=== PATIENT | male | born 1965 | race Hispanic/Latino ===

== ENCOUNTER → 2021-07-17 | Outpatient (CLI) | payer OTHER | END | disposition home or self-care (01) | LOC: OIH 14:34 | PROVIDERS: ATTEND Internal Medicine Cardiovascular Disease | DX: Z13.6 Encounter for screening for cardiovascular disorders (principal); R93.1 Abnormal findings on diagnostic imaging of heart and coronary circulation | CPT/HCPCS: 75571 ==

== ENCOUNTER 2024-05-22 07:08 | Inpatient (IN) | payer MEDICARE, OTHER ==
[~2024-05-22] VITALS: Ht 175.3 cm; Wt 95.0 kg
[~2024-05-22 07:08] MED LIST: ATOR20TA65 PO; HUM100IN SQ; NIFE-78 PO; PRED5TAB PO
[2024-05-22 08:03] LABS: BASOPHILS # (AUTO) 0.05 K/uL (0.00-0.20); BASOPHILS % (AUTO) 0.4 % (0.0-5.0); EOSINOPHILS # (AUTO) 0.03 K/uL (0.00-0.70); EOSINOPHILS % (AUTO) 0.2 % (0.0-8.0); LYMPHOCYTES # (AUTO) 1.8 K/uL (1.0-4.8); LYMPHOCYTES % (AUTO) 13.4 % (21.0-51.0); MEAN CORPUSCULAR HEMOGLOBIN 30.9 pg (27.0-33.0); MEAN CORPUSCULAR HGB CONC 31.5 g/dL (32.0-36.0); MEAN CORPUSCULAR VOLUME 98.1 fL (79-99); MONOCYTES # (AUTO) 0.5 K/uL (0.1-1.0); MONOCYTES % (AUTO) 3.6 % (3.0-13.0); NEUTROPHILS # (AUTO) 11.1 K/uL (1.8-7.7); NEUTROPHILS % (AUTO) 80.9 % (40.0-77.0); PLATELET COUNT (AUTO) 250 K/uL (130-400); RED BLOOD CELL COUNT(AUTO) 2.65 MIL/uL (4.50-6.20); RED CELL DISTRIBUTION WIDTH 15.9 % (11.0-15.5); WHITE BLOOD COUNT (AUTO) 13.7 K/uL (4.8-10.8)
--- NOTE | 2024-05-22 08:09 | NUR ---
PATIENT REPORTS PORTACATH DEVICE FELL OUT WHILE OUT GETTING UP FROM HIS RECLINER. PATIENTS PLACED DRESSING ON WOUND. WOUND PRESENTS WITH DRY BLOOD AT EXIT SITE. EDGES APPEAR CLEAN, SITE WITHOUT REDNESS OR SWELLING NOTED.
--- NOTE | 2024-05-22 08:16 | EKG ---
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
[2024-05-22 08:22] LABS: CREATININE 7.8 mg/dL (0.5-1.3); POTASSIUM 5.5 mmol/L (3.5-5.1)
[2024-05-22 08:30] LABS: INR 0.96 (0.85-1.15); PROTHROMBIN TIME 10.8 SEC (9.6-11.6)
--- NOTE | 2024-05-22 08:31 | NUR ---
WOUND CARE PROVIDED USING STERILE TECHNIQUE. STERILE DRESSING APPLIED
[2024-05-22 08:32] LABS: PARTIAL THROMBOPLASTIN TIME 26.8 SEC (26.3-35.5)
--- NOTE | 2024-05-22 08:49 | ERN ---
ED Note History of Present Illness Stated Complaint: PORT A CATH DISLODGED Chief Complaint: Other Problems Time Seen by MD: 07:22 Dictation: The patient is a 59-year-old male with a medical history that includes hypertension, type 2 diabetes mellitus, and psoriatic arthritis for which he is on long-term immunosuppressive therapy presented to the emergency department due to the dislodgement of his Perm catheter. The patient has been undergoing hemodialysis for the past two years, with the most recent catheter change occurring at [facility] six months ago. Last Wednesday, while performing home dialysis, the catheter became dislodged approximately 20 minutes into the procedure. He did not observe any blood or serous discharge from the catheter site. In a state of panic, he contacted [facility] to inquire whether he should come in for catheter reinsertion that same day. The nurse advised him to visit the hosp ital on Wednesday. He reports no chest pain, shortness of breath, nausea, vomiting, or any other symptoms. 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 Multiple providers have informed him that he will be requiring Right side BKA in the near future. He is currently under the care of Dr. Mata (Infectious Disease) and Dr. Boswell (Advanced Registered Nurse) as an outpatient. Allergies: Coded Allergies: Penicillins (Unverified Allergy, Unknown, 01/14/24) Sulfa (Sulfonamide Antibiotics) (Unverified Allergy, Unknown, 01/14/24) Home Meds Reported Medications Hum Insulin NPH/Reg Insulin Hm (Humulin 70/30 Kwikpen) 100 Unit/Ml (70-30) Insuln.pen, 30 UNITS SQ DAILY 01/14/24 Nifedipine (Nifedipine ER) 30 Mg Tablet.er, 60 MG PO BID 01/14/24 Prednisone (Prednisone) 5 Mg Tablet, 5 MG PO BID, TAB 01/14/24 Atorvastatin Calcium (Atorvastatin Calcium) 20 Mg Tablet, 20 TAB PO DAILY 01/14/24 Past Medical History Past Medical History: Arthritis, Diabetes-Type II, High Cholesterol, Hypertension, Renal Failure Surgical History: Cholecystectomy Surgical History Other: RT FOOT AMPUTATION, NECK PSYCH History: no pertinent psych hx Family History: Negative Review of System Dictation CONSTITUTIONAL: Denies fevers, chills, or night sweats. No unintentional weight loss reported. NEUROLOGICAL: Denies headache, amaurosis fugax, motor weakness, sensory deficit, vertigo/spinning sensation, gait abnormalities, or tremors. ENT: No hearing loss, otalgia, otorrhea, rhinitis, rhinorrhea, hoarseness, or sore throat. CARDIOVASCULAR: Denies any exertional angina, dyspnea on exertion, orthopnea, paroxysmal nocturnal dyspnea, palpitations, life-threatening arrhythmias, claudication. PULMONARY: Denies any shortness of breath, cough, phlegm/sputum, hemoptysis, pleuritic chest pain. SLEEP: Denies morning headaches, daytime somnolence or napping. Denies difficulty falling asleep, staying asleep, waking from sleep. Denies knowledge of snoring. GASTROINTESTINAL: Denies any type of dysphagia to either liquids or solids. Denies nausea, vomiting, pyrosis, early satiety, abdominal pain, diarrhea, constipation, or changes in stool consistency or caliber. Denies coffee-ground emesis, hematemesis, hematochezia, or melanotic stools. GENITOURINARY: Denies frequency, urgency, nocturia, hematuria or incontinence (Storage/Irritative symptoms.) Low urinary stream, straining to void, urinary intermittency or hesitancy, splitting of the voiding stream, terminal dribbling. ENDOCRINOLOGIC: Denies polyuria, polydipsia, polyphagia or heat/cold intolerances. HEMATOLOGIC: Denies thrombophilia/previous clots, or coagulopathy/bleeding disorders. ONCOLOGIC: Denies personal history of malignancy. DERMATOLOGIC: Denies rashes or pruritus. PSYCHIATRIC: Denies any suicidal or homicidal ideation. Denies hallucinations. Initial Vital Sign VS Vital Signs Date Time Temp Pulse Resp B/P (MAP) Pulse Ox O2 Delivery O2 Flow Rate FiO2 05/22/24 07:12 97.9 94 16 160/68 95 Room Air 0 05/22/24 07:20 21 Physical Exam Dictation PHYSICAL EXAM GENERAL APPEARANCE: The patient is awake, alert, and oriented, in no acute cardiopulmonary distress. NEUROLOGICAL: Cranial nerves II-XII grossly intact. Motor is 5/5 in bilateral upper and lower extremities proximal to distal. No sensory deficits. HEENT: Face is symmetric. Pupils are equal and reactive. Extraocular movements are intact. NECK: Supple. No JVD. No thyromegaly. No submental, submandibular, pre- /postauricular, occipital or supraclavicular lymphadenopathy. CHEST: Normal chest expansion. No Telemetry. LUNGS: Absence of any rales, rhonchi or any wheezing. CARDIOVASCULAR: Regular. S1 and S2 normal. No appreciable rubs, murmurs or gallops. ABDOMEN: Soft, nontender, and nondistended. There is no rebound, voluntary guarding, or rigidity. : Deferred. No Hutson. EXTREMITIES: Non-edematous and not cyanotic. No clubbing. Good capillary refill. SKIN: Hyperpigmented striae present over the abdomen, bandage present over right foot nonhealing ulcer area, small decubitus ulcer present over the right buttock IVF Sepsis Management BMI >30kg/m2?: No Results (Laboratory/Radiology) Laboratory/Radiology Laboratory Tests Test 05/22/24 07:50 05/22/24 11:47 05/22/24 11:49 White Blood Count 13.7 K/uL (4.8-10.8) H Red Blood Count 2.65 MIL/uL (4.50-6.20) L Hemoglobin 8.2 g/dL (14.0-18.0) L Hematocrit 26.0 % (42-54) L Mean Corpuscular Volume 98.1 fL (79-99) Mean Corpuscular Hemoglobin 30.9 pg (27.0-33.0) Mean Corpuscular Hemoglobin Concent 31.5 g/dL (32.0-36.0) L Red Cell Distribution Width 15.9 % (11.0-15.5) H Platelet Count 250 K/uL (130-400) Mean Platelet Volume 11.2 fL (7.5-10.5) H Immature Granulocyte % (Auto) 1.5 % (0-1) H Neutrophils (%) (Auto) 80.9 % (40.0-77.0) H Lymphocytes (%) (Auto) 13.4 % (21.0-51.0) L Monocytes (%) (Auto) 3.6 % (3.0-13.0) Eosinophils (%) (Auto) 0.2 % (0.0-8.0) Basophils (%) (Auto) 0.4 % (0.0-5.0) Neutrophils # (Auto) 11.1 K/uL (1.8-7.7) H Lymphocytes # (Auto) 1.8 K/uL (1.0-4.8) Monocytes # (Auto) 0.5 K/uL (0.1-1.0) Eosinophils # (Auto) 0.03 K/uL (0.00-0.70) Basophils # (Auto) 0.05 K/uL (0.00-0.20) Absolute Immature Granulocyte (auto 0.20 K/uL (0-1) Nucleated Red Blood Cells 0.0 % (0.0-0.19) Erythrocyte Sedimentation Rate 30 MM/HR (0-20) H Prothrombin Time 10.8 SEC (9.6-11.6) Prothromb Time International Ratio 0.96 (0.85-1.15) Activated Partial Thromboplast Time 26.8 SEC (26.3-35.5) Sodium Level 138 mmol/L (136-145) Potassium Level 5.5 mmol/L (3.5-5.1) H Chloride Level 101 mmol/L (101-111) Carbon Dioxide Level 26 mmol/L (21-32) Blood Urea Nitrogen 74 mg/dL (7-18) H Creatinine 7.8 mg/dL (0.5-1.3) H Glomerular Filtration Rate Calc 7 mL/min (>90) Random Glucose 201 mg/dL (70-105) H Hemoglobin A1c 8.6 % (4.0-6.0) H Estimated Average Glucose (eAG) 200 mg/dL (70-126) H Total Calcium 7.5 mg/dL (8.5-10.1) L Total Bilirubin 0.4 mg/dL (0.2-1.0) Direct Bilirubin 0.1 mg/dL (0.0-0.3) Aspartate Amino Transf (AST/SGOT) 11 U/L (10-37) Alanine Aminotransferase (ALT/SGPT) 12 U/L (12-78) Alkaline Phosphatase 101 U/L (50-136) C-Reactive Protein, Quantitative 46.40 mg/L (0.5-3.0) H Total Protein 6.8 g/dL (6.0-8.3) Albumin 2.9 g/dL (3.5-5.0) L Procalcitonin 0.41 ng/mL (0.05-0.5) Thyroid Stimulating Hormone (TSH) 0.65 uIU/mL (0.36-3.74) Whole Blood Glucose 112 MG/DL (70-110) H 201 MG/DL (70-110) #H Labs Reviewed?: Yes EKG Comment: Sinus rhythm, normal P axis, V-rate 50-99 Rate 90 QT 379 X-RAY Comment: [facility] [address] [place] [address] IMAGING REPORT Signed PATIENT: FREDRICK LION MR#: [id number] : 1965 SEX: M AGE: 59 LOCATION: [facility] ORDER 5 STATUS: REG ER REPORT#: [id number] SERVICE REASON: cardiac ORDERING PHYSICIAN: MARTHA CAPONE MD PROCEDURE: CXR1VW - CHEST 1VW Exam Type: CHEST 1VW Clinical Information: cardiac Comparison: None Findings: Removal of right permacath. No pneumothorax. The lungs are clear of infiltrates. The heart is enlarged. Bony and soft tissue structures of the chest wall are unremarkable. IMPRESSION: Cardiomegaly. Clear lungs. DICTATED BY: YOSSI SEGAL MD DATE: 05/22/24911 ELECTRONICALLY SIGNED BY: YOSSI SEGAL MD DATE: 05/22/2414 ED Course ED Course Orders Procedure Category Date Status Time Basic Metabolic Panel LAB 05/22/24 Complete 07:45 Cbc With Differential LAB 05/22/24 Complete 07:45 Pt And Ptt LAB 05/22/24 Complete 07:45 Chest 1vw RAD 05/22/24 Resulted 07:45 12 Lead Ekg Tracing- EKG 05/22/24 Complete Technical 07:45 Acetaminophen 325 Tab PHA 05/22/24 In Process (Tylenol 325mg Tab 10:30 Ondansetron 4mg Inj PHA 05/22/24 In Process (Zofran 4mg Inj) 10:30 Initiate [place] 05/22/24 In Process Hyperglycemia Protoco 10:03 Insulin Regular, PHA 05/22/24 In Process Human 3ml (Humulin R 11:30 Admit Orders ADM 05/22/24 Transmitted 10:24 Podiatry Consult CONPHYSVC 05/22/24 Transmitted 10:30 Nephrology Consult CONPHYSVC 05/22/24 Transmitted 10:30 Foot Comp 3+Vws Rt RAD 05/22/24 Resulted 10:31 Us Arterial Unila Low US 05/22/24 Resulted Ext Dupl 10:32 Telemetry Monitoring CPOE 05/22/24 Transmitted 10:32 Erythrocyte LAB 05/22/24 Complete Sedimentation Rate 10:32 Crp Quantitative LAB 05/22/24 Complete 10:32 Procalcitonin LAB 05/22/24 Complete 10:32 Thyroid Stimulating LAB 05/22/24 Complete Hormone 10:32 Hemoglobin A1c LAB 05/22/24 Complete 10:32 Blood Cult CHRIS 05/22/24 In Process 10:34 *Nursing CPOE 05/22/24 Transmitted Communication: 10:34 Mr Ankle Right Wo MRI 05/22/24 Logged 10:36 Nifedipine 30mg Er PHA 05/22/24 In Process (Adalat 30mg) 11:00 Vital Signs(Adult CPOE 05/22/24 Transmitted Hospitalist) 10:39 Daily Weights CPOE 05/22/24 Transmitted 10:39 I&O Q Shift CPOE 05/22/24 Transmitted 10:39 Condition: CPOE 05/22/24 Transmitted 10:39 Activity: Br W/Brp CPOE 05/22/24 Transmitted With Assist 10:39 Apply Scds CPOE 05/22/24 Transmitted 10:39 Fall Precautions CPOE 05/22/24 Transmitted 10:39 Aspiration Precautions CPOE 05/22/24 Transmitted 10:39 Npo Except For Meds CPOE 05/22/24 Transmitted 10:39 Hepatic Function Panel LAB 05/22/24 Complete 10:32 Pharmacy PHA 05/22/24 Complete Communication 11:00 Pantoprazole 40mg Tab PHA 05/23/24 In Process (Protonix 40mg Tab 09:00 Aspirin 81mg Chew Tab PHA 05/23/24 In Process (Aspirin 81mg Chew 09:00 Cefepime Hcl 1 Gm PHA 05/22/24 In Process Vial (Maxipime 1 Gm Vi 11:00 Vancomycin Protocol PHA 05/22/24 In Process (Vancomycin Protocol 11:00 Vancomycin 2gm/500 Ml PHA 05/22/24 Complete Bag (Vancomycin 2g 11:00 Prednisone 5mg Tab PHA 05/22/24 In Process (Deltasone/Orasone 5m 21:00 Na Zircon PHA 05/22/24 Complete Cyclosil-Lokelma 10g 11:30 Folic Acid/Vitamin B PHA 05/23/24 In Process Comp W-C (Nephrovit 09:00 Daily Fluid Intake CPOE 05/22/24 Transmitted Restriction 11:41 Cbc With Differential LAB 05/23/24 Verified 04:00 Comprehensive LAB 05/23/24 Verified Metabolic Panel 04:00 Magnesium LAB 05/23/24 Verified 04:00 Jitterbug Operator Procedure CATH 05/22/24 Logged Request 11:43 Hydralazine 20mg Inj PHA 05/22/24 In Process (Apresoline 20mg In 12:30 Clopidogrel 75mg Tab PHA 05/23/24 In Process (Plavix 75mg) 13:00 Jitterbug Operator Procedure CATH 05/22/24 Logged Request 17:00 Vital Signs Date Time Temp Pulse Resp B/P (MAP) Pulse Ox O2 Delivery O2 Flow Rate FiO2 05/22/24 13:00 86 16 153/72 98 Room Air* 0 21 05/22/24 11:00 87 14 142/62 98 Room Air* 0 21 05/22/24 10:00 87 13 153/87 98 Room Air* 0 21 05/22/24 09:00 88 14 154/77 96 Room Air* 0 21 05/22/24 08:20 87 14 153/61 96 Room Air* 0 21 05/22/24 07:20 98.1 95 12 152/70 96 Room Air* 0 21 05/22/24 07:12 97.9 94 16 160/68 95 Room Air 0 8:30 AM: The patient was assessed at the bedside in the presence of his . He is resting comfortably in bed and reports no chest pain, shortness of breath, or any other issues. He undergoes dialysis on Mondays, Wednesdays, and Saturdays, with today's session scheduled. He has brought his PermCath in a Ziploc bag. Vital signs indicate a blood pressure of 160/68, with all other readings within normal limits. Laboratory results reveal a white blood cell count of 13.7, hemoglobin level of 8.2, potassium level of 5.5, blood urea nitrogen of 74, and creatinine level of 7.8. Results from the chest x-ray are still pending. We will closely monitor the patient and call IR/Jitterbug Operator to schedule a procedure for Perm Cath insertion. 9:15 AM: We have called laborer [facility] for placement of a placement of Perm catheter. Per cath team, the patient requires inpatient admission for PermCath placement. We have called hospitalist conveyancer and requested the patient to get admitted. The patient will be NPO, the slurry man on the call Dr. Patrick was informed. The hospitalist accepted the admission. Medical Decision Making [facility] MDM Differential diagnosis: Perm cath dislodgement, ESRD on Hemodialysis, Hyperkalemia Hospitalist consult, accepts patient for admission Previous outside records reviewed: Old ER visits. Risk of complication and/or morbidity or mortality of patient management: None Medications-Per medication reconciliation Need for hospitalization: Patient does meet criteria for hospitalization. Need for emergency major/minor surgery: No There are no social concerns with this patient. Patient's prior external medical records from other ER visits were reviewed by me as indicated. Prior testing and results from previous visits were reviewed. Prior tests were taken into account with medical decision making and resource utilization, independent historian/historians were used to obtain complete medical history. I independently interpreted the test that were performed, results were reviewed by me and considered findings on radiology if ordered. DX & DISP Disposition: Inpatient Decision to Admit Date: May 22, 2024 Departure Impression: Primary Impression: Hemodialysis catheter dysfunction Additional Impressions: ESRD (end stage renal disease) on dialysis, Hyperkalemia Critical Time: 30 minutes Condition: Stable Referrals: STEPHANIE HAYES MD (PCP) I performed the substantive portion of the visit. I have reviewed and personally made and approve the management plan that is documented in the notes by myself or the resident physician. I acknowledge full responsibility for the patient's management plan. I have examined patient, & reviewed all documents, & agreed W/ the Diagnosis, and Plan MAL MAN MD May 22, 2024 08:49 MARTHA CAPONE MD May 22, 2024 15:59
--- NOTE | 2024-05-22 09:14 | HMCIMG ---
Exam Type: CHEST 1VW Clinical Information: cardiac Comparison: None Findings: Removal of right permacath. No pneumothorax. The lungs are clear of infiltrates. The heart is enlarged. Bony and soft tissue structures of the chest wall are unremarkable. IMPRESSION: Cardiomegaly. Clear lungs.
--- NOTE | 2024-05-22 10:08 | HP ---
[facility] HISTORY AND PHYSICAL Date of Service: May 22, 2024 Time of Service: 10:08 HISTORY OF PRESENT ILLNESS: 59-year-old male with underlying history of hypertension, hyperlipidemia, peripheral arterial disease, type 2 diabetes mellitus, ESRD on chronic home he modialysis of Wednesday, Wednesday, Wednesday, history of chronic diabetic foot ulcer of the right heel being followed by Podiatry as outpatient, psoriasis on chronic outpatient steroids and Remicade infusion who presented to the ER after his PermCath for hemodialysis was dislodged. Dislodgement happened on Wednesday and patient decided to come to the ER today for further evaluation. Patient states that similar episode has happened about six months ago and patient had PermCath placed by IR. Patient denies any fevers or chills. Reports that he is due for home hemodialysis today. He has a history of chronic diabetic foot/ heel ulcer being followed by Dr. Jackson as outpatient. He was seen by Dr. Jackson recently and has been taking oral outpatient antibiotics with doxycycline. He is supposed to see Dr. Mata with Infectious Disease on 05/26/2024 given persistent nonresolving infection. Patient was hospitalized in [facility] on 12/2023 after he was found to have cellulitis involving the TMA site of the right foot along with heel ulcer. Patient was found to have polymicrobial infection with Enterococcus faecalis, Pseudomonas aeruginosa and Bacteroides. He underwent debridement and wound VAC placement and was eventually discharged to [facility]. Patient was also seen by Cardiology and underwent peripheral angiogram with findings of severe right lower extremity PAD and patient underwent angioplasty of the right popliteal and distal SFA by Dr. Arzate. He was supposed to be on dual antiplatelet therapy with aspirin and Plavix but patient states that he has not taken either aspirin or Plavix after discharge from [facility]. On presentation to the hospital, patient was noted to be afebrile and hemodynamically stable. EKG showed normal sinus rhythm. chest x-ray showed no pulmonary edema. [place] [address], hemoglobin of 8.2, platelet count of 250,000. Patient initially stated that he did not want to be admitted and wanted IR to change catheter and be discharged home. But after further discussion, he is agreeable to be admitted for further evaluation by Dr. Jackson with regards to nonhealing ulcer/eschar of the right foot. we will rule out any active cellulitis and patient will be started on broad-spectrum antibiotics. Blood cultures will be obtained. Consultation with IR will be obtained as well for placement of PermCath. We will see how patient progresses. Patient has significant PAD, patient may need Cardiology evaluation as well as he has been off dual antiplatelet therapy for several months now. REVIEW OF SYSTEMS CONSTITUTIONAL: reports that permacath was dislodged today NEUROLOGICAL: Denies headache, amaurosis fugax, motor weakness, sensory deficit, vertigo/spinning sensation, gait abnormalities, or tremors. ENT: No hearing loss, otalgia, otorrhea, rhinitis, rhinorrhea, hoarseness, or sore throat. CARDIOVASCULAR: Denies any exertional angina, dyspnea on exertion, orthopnea, paroxysmal nocturnal dyspnea, palpitations, life-threatening arrhythmias, claudication. PULMONARY: Denies any shortness of breath, cough, phlegm/sputum, hemoptysis, pleuritic chest pain. SLEEP: Denies morning headaches, daytime somnolence or napping. Denies difficulty falling asleep, staying asleep, waking from sleep. Denies knowledge of snoring. GASTROINTESTINAL: Denies any type of dysphagia to either liquids or solids. Denies nausea, vomiting, pyrosis, early satiety, abdominal pain, diarrhea, constipation, or changes in stool consistency or caliber. Denies coffee-ground emesis, hematemesis, hematochezia, or melanotic stools. GENITOURINARY: Denies frequency, urgency, nocturia, hematuria or incontinence (Storage/Irritative symptoms.) Low urinary stream, straining to void, urinary intermittency or hesitancy, splitting of the voiding stream, terminal dribbling. ENDOCRINOLOGIC: Denies polyuria, polydipsia, polyphagia or heat/cold intolerances. HEMATOLOGIC: Denies thrombophilia/previous clots, or coagulopathy/bleeding disorders. ONCOLOGIC: Denies personal history of malignancy. DERMATOLOGIC: ulcer involving the right foot heel PSYCHIATRIC: Denies any suicidal or homicidal ideation. Denies hallucinations. PAST MEDICAL HISTORY: ESRD, hypertension, hyperlipidemia, peripheral arterial disease, type 2 diabetes mellitus, history of psoriasis on immunosuppressive therapy with prednisone and Remicade (last dose of Remicade on 04/21/2024), history of chronic steroid use as outpatient PAST SURGICAL HISTORY: History of right transmetatarsal amputation, hx of debridement of skin, subcutaneous tissues, right heel area 6 x 3 cm2 with total area of sharp excisional debridement of 18 cm on 01/16/[address] Jackson, history of peripheral angiogram with findings of severe right lower extremity PAD with angioplasty of right popliteal and distal SFA on 01/24/[address] Arzate, history of cholecystectomy, history of cervical spine surgery PAST SOCIAL HISTORY: Denies active smoking or alcohol consumption FAMILY HISTORY: Denies pertinent family history Allergies: Patient has allergic reaction to penicillin and sulfa Home medications: Patient will be bringing home medication list, reports being on nifedipine, prednisone 5 mg b.i.d., atorvastatin, denies being on aspirin or any other blood thinner Coded Allergies: Penicillins (Unverified Allergy, Unknown, 01/14/24) Sulfa (Sulfonamide Antibiotics) (Unverified Allergy, Unknown, 01/14/24) PHYSICAL EXAM GENERAL APPEARANCE: The patient is awake, alert, and oriented, in no acute cardiopulmonary distress. NEUROLOGICAL: Cranial nerves II-XII grossly intact. Motor is 5/5 in bilateral upper and lower extremities proximal to distal. No sensory deficits. HEENT: Face is symmetric. Pupils are equal and reactive. Extraocular movements are intact. NECK: Supple. No JVD. No thyromegaly. No submental, submandibular, pre-/postauricular, occipital or supraclavicular lymphadenopathy. CHEST: Normal chest expansion. No Telemetry. LUNGS: Absence of any rales, rhonchi or any wheezing. CARDIOVASCULAR: Regular. S1 and S2 normal. No appreciable rubs, murmurs or gallops. ABDOMEN: Soft, nontender, and nondistended. There is no rebound, voluntary guarding, or rigidity. : Deferred. No Hutson. EXTREMITIES: Patient has heel has a large area of eschar with possible necrotic region SKIN: No skin breakdown. Vital Sign (Last 24 Hours) 05/22/24 05/22/24 07:20 08:20 Temp 98.1 Pulse 87 Resp 14 B/P (MAP) 153/61 Pulse Ox 96 O2 Delivery Room Air* O2 Flow Rate 0 FiO2 21 LABS: Laboratory: Test 05/22/24 07:50 Range/Units White Blood Count 13.7 H 4.8-10.8 K/uL Red Blood Count 2.65 L 4.50-6.20 MIL/uL Hemoglobin 8.2 L 14.0-18.0 g/dL Hematocrit 26.0 L 42-54 % Mean Corpuscular Volume 98.1 79-99 fL Mean Corpuscular Hemoglobin 30.9 27.0-33.0 pg Mean Corpuscular Hemoglobin Concent 31.5 L 32.0-36.0 g/dL Red Cell Distribution Width 15.9 H 11.0-15.5 % Platelet Count 250 130-400 K/uL Mean Platelet Volume 11.2 H 7.5-10.5 fL Immature Granulocyte % (Auto) 1.5 H 0-1 % Neutrophils (%) (Auto) 80.9 H 40.0-77.0 % Lymphocytes (%) (Auto) 13.4 L 21.0-51.0 % Monocytes (%) (Auto) 3.6 3.0-13.0 % Eosinophils (%) (Auto) 0.2 0.0-8.0 % Basophils (%) (Auto) 0.4 0.0-5.0 % Neutrophils # (Auto) 11.1 H 1.8-7.7 K/uL Lymphocytes # (Auto) 1.8 1.0-4.8 K/uL Monocytes # (Auto) 0.5 0.1-1.0 K/uL Eosinophils # (Auto) 0.03 0.00-0.70 K/uL Basophils # (Auto) 0.05 0.00-0.20 K/uL Absolute Immature Granulocyte (auto 0.20 0-1 K/uL Nucleated Red Blood Cells 0.0 0.0-0.19 % Prothrombin Time 10.8 9.6-11.6 SEC Prothromb Time International Ratio 0.96 0.85-1.15 Activated Partial Thromboplast Time 26.8 26.3-35.5 SEC Sodium Level 138 136-145 mmol/L Potassium Level 5.5 H 3.5-5.1 mmol/L Chloride Level 101 101-111 mmol/L Carbon Dioxide Level 26 21-32 mmol/L Blood Urea Nitrogen 74 H 7-18 mg/dL Creatinine 7.8 H 0.5-1.3 mg/dL Glomerular Filtration Rate Calc 7 >90 mL/min Random Glucose 201 H 70-105 mg/dL Total Calcium 7.5 L 8.5-10.1 mg/dL DIAGNOSTICS / RADIOLOGY: SERVICE 0745 REASON: cardiac ORDERING PHYSICIAN: MARTHA CAPONE MD PROCEDURE: CXR1VW - CHEST 1VW Exam Type: CHEST 1VW Clinical Information: cardiac Comparison: None Findings: Removal of right permacath. No pneumothorax. The lungs are clear of infiltrates. The heart is enlarged. Bony and soft tissue structures of the chest wall are unremarkable. IMPRESSION: Cardiomegaly. Clear lungs. DICTATED BY: YOSSI SEGAL MD DATE: 05/22/24911 ELECTRONICALLY SIGNED BY: YOSSI SEGAL MD DATE: 05/22/24913 ASSESSMENT: Dislodged PermCath, POA History of ESRD on home hemodialysis therapy, POA Chronic leukocytosis, POA Underlying immunosuppression on outpatient treatment with steroids and Remicade, POA Nonhealing diabetic foot ulcer/heel ulcer with associated deep eschar/necrotic region, being followed by Dr. Jackson as outpatient, POA Anemia of renal disease, POA Underlying history of type 2 diabetes mellitus, POA History of chronic prednisone use as outpatient, POA Hypertension, POA Hyperlipidemia, POA History of peripheral arterial disease, POA Prior history of angioplasty to right popliteal artery and distal SFA by Dr. Arzate on 01/24/2024, POA History penicillin allergy, POA PLAN: Patient has agreed to be admitted after further discussion, we will admit this patient to medical-surgical floor IR consultation will be requested for PermCath placement, patient is on home hemodialysis on Wednesday, Wednesday, Wednesday, discussed with Dr. Mera with Nephrology, who has requested PermCath to be placed, patient has chronic leukocytosis from outpatient prednisone use as well Consultation with Nephrology will be requested Discussed patient's case with Dr. Jackson with Podiatry, patient was recently seen as outpatient in his pending to see Dr. Mata with Infectious Disease as outpatient, we will obtain blood cultures, CRP, ESR, procalcitonin, we will obtain foot x-ray as well, rule out any changes of osteomyelitis, patient has nonhealing right diabetic heel ulcer large area of eschar/necrotic changes, we will rule out any active infection as well We will keep patient on broad-spectrum antibiotics with vancomycin/cefepime renally dosed We will obtain lower extremity arterial ultrasound for further evaluation of vascular status, patient had peripheral angiogram done 01/2024 and unfortunately has not been on dual antiplatelet therapy after discharge from [facility], patient may need cardiac evaluation We will restart patient back on DAPT therapy with Aspirin and Plavix post perma- cath placement We will obtain x-ray of the right foot All labs will be repeated in the morning All medications were renally dose Family to bring home medication list to be reconciled and updated Date of service: 05/22/2024, Plan of care was discussed with patient at bedside, Ameya Qureshi MD Advanced Care Planning: Which of the following were discussed: Hospice care: Yes __ No _X_ Therapeutic options: Yes _X_ No __ Advance directives: Yes _X_ No __ Other discussions: Discussed with who?: Patient Voluntary nature of this service was explained to the patient? Yes _x_ No __ Amount of time spent: 20 minutes AMEYA QURESHI MD May 22, 2024 10:08
[2024-05-22] MEDS ORDERED: ondanSETRON 4MG INJ IVP PRN (10:30)
--- NOTE | 2024-05-22 10:59 | NUR ---
ATTEMPTED TO BRING PATIENT FOR MRI. PT REFUSING. ER TO CONSULT DR CROUCH ON HIS PLAN OF CARE. NURSE WILL CALL WHEN THEY HAVE A UPDATE.
[2024-05-22] MEDS ORDERED: PHARMACY COMMUNICATION MISC SCH (11:00)
[2024-05-22] MEDS ORDERED: VANCOMYCIN PROTOCOL PER PHARMACY IV SCH (11:00)
[2024-05-22] MEDS: nifeDIPine ER 30 MG TAB PO SCH ×2 (11:00→19:35)
[2024-05-22 11:05] LABS: ALBUMIN 2.9 g/dL (3.5-5.0); BILIRUBIN,DIRECT 0.1 mg/dL (0.0-0.3); BILIRUBIN,TOTAL 0.4 mg/dL (0.2-1.0); THYROID STIMULATING HORMONE 0.65 uIU/mL (0.36-3.74); TOTAL PROTEIN, SERUM 6.8 g/dL (6.0-8.3)
[2024-05-22 11:08] LABS: HEMOGLOBIN A1C 8.6 % (4.0-6.0)
[2024-05-22] MEDS: NA ZIRCON CYCLOSIL(LOKELMA 10GM) PO ONE (11:30)
--- NOTE | 2024-05-22 12:00 | NUR ---
PATIENT WAS PROVIDED LOKELMA PRESCRIBED, PATIENT DECLINED INTERVENTIONS AT THIS TIME PATIENT STATES " IM GOING TO THROW THAT UP ALL OVER THE PLACE I DONT WANT TO TAKE IT." PATIENT EDUCATION PROVIDED ON RISKS RELATED TO ELEVATED POTASSIUM LEVELS. PATIENT VERBALIZES UNDERSTANDING AND STATED " I KNOW MY BODY". POC ONGOING.
[2024-05-22] MEDS: ceFEPime HCL 1 GM VIAL IVPB SCH (12:09)
[2024-05-22] MEDS: INSULIN humuLIN R 100 UNIT/ML 3ML SQ SCH (12:11)
[2024-05-22] MEDS: VANCOMYCIN 2GM/500 ML BAG 500 ML IV ONE (12:48)
--- NOTE | 2024-05-22 14:13 | HMCIMG ---
Exam Type: US ARTERIAL UNILA LOW EXT DUPL Clinical Information: r/o RLE severe PAD, non helaing diabetic foot ulcer with large eschar Comparison: None Findings: Diffuse bilateral plaque is identified. There are normal triphasic waveforms of the common femoral artery through the mid superficial femoral artery. There is occlusion of the proximal popliteal artery with reconstitution via collaterals. There is occlusion of the anterior tibial artery and dorsalis pedis artery. There are monophasic abnormal waveforms of the popliteal artery and posterior tibial artery consistent with severe nonocclusive disease. IMPRESSION: Peripheral vascular disease as noted.
--- NOTE | 2024-05-22 15:32 | HMCIMG ---
Exam Type: FOOT COMP 3+VWS RT Clinical Information: diabetic heel ulcers with area of large eschar/ necrotic tissue. r/o osteo Comparison: None Findings and impression: Status post midfoot amputation. Charcot joint of the remaining articular structures. Normal destruction to suggest osteomyelitis.
--- NOTE | 2024-05-22 18:25 | NUR ---
dr saez: rescheduled case for 05/23/2024
[2024-05-22] MEDS: predniSONE 5 MG TABLET PO SCH (19:42)
[2024-05-22 19:54] VITALS: O2SAT 94
--- NOTE | 2024-05-22 20:00 | NUR ---
PENDING TO BRING HOME MEDICATIONS.
--- NOTE | 2024-05-22 20:29 | NUR ---
REPORT GIVEN TO NURSE SANTANA.
--- NOTE | 2024-05-22 20:41 | NUR ---
ADMISSION: PT RECEIVED FROM ER VIA BED, FAMILY AT BEDSIDE. ORTHO NURSE IN TO CHECK ADMISSION VITAL SIGNS, PT STATES "WHY ARE YOU DOING THAT, THEY ALREADY CHECKED ME DOWNSTAIRS FOR 12 HOURS." PT MADE AWARE WE NEED TO CHECK VITAL SIGNS TO HAVE A BASELINE. NURSE IN TO DO ADMISSION ASSESSMENT, PT DOES NOT WANT TO BE "INTERRUPTED UNTIL HE IS DONE EATING." PT IN WITH RIGHT HEEL ULCER WRAPPED DRESSING DRY/INTACT. PT REFUSED TO HAVE PHOTOGRAPH TAKEN. PT INFORMED IT IS HOSPITAL POLICY TO TAKE PICTURES UPON ADMISSION, PT REFUSED. CALL MENDOZA WITHIN REACH.
[2024-05-22 20:45] VITALS: BP 186/90; PULSE 87; RESP 18; TEMP 97.2
[2024-05-22] MEDS: hydrALAZine 20MG/ML VIAL IV PRN (21:19)
[2024-05-22 21:30] VITALS: O2SAT 98
--- NOTE | 2024-05-22 21:30 | NUR ---
DR. CROUCH AT BEDSIDE TO DO RIGHT HEEL DRESSING CHANGE. AEROBIC/ANAEROBIC CULTURE OBTAINED FROM RIGHT HEEL AND SENT TO LAB. RIGHT HEEL WITH ULCER YELLOW ESCHAR AND BLACK TISSUE NOTED.
[2024-05-22] MEDS: HYDROcodone/APAP 5/325 1 TAB TABLET PO PRN (22:51)
[2024-05-23] VITALS (20 sets, daily range): BP systolic 137–176; BP diastolic 46–89; PULSE 64–100; RESP 16–20; TEMP 97.7–98.7; O2SAT 98–100
--- NOTE | 2024-05-23 02:08 | CONS ---
HISTORY OF PRESENT ILLNESS: The patient a very pleasant 59-year-old diabetic, Latin-[place] male, who presented to the hospital having dislodged his PermCath for his peritoneal dialysis. He has been followed for end-stage renal disease, currently on hemodialysis, being followed for a large fibronecrotic ulcer with chronic osteomyelitis to his heel on the right. He has had arterial Doppler studies, which suggests peripheral vascular disease affecting that right lower extremity, being [facility] by [facility]. It has been recommended on multiple occasions that the patient proceed with [id number] amputation due to the severity of the necrotic tissue to the posterior heel and ankle on the right with the presence of osteomyelitis and the patient has been refusing. He is currently afebrile at 98.1, pulse 95, blood pressure 162/84, respirations 16. He is concerned of pain to the right heel area. He has a white count 13.7, H and H of 8.2 and 26, sed rate 30. He has had x-rays of the right, which showed a rearfoot level of amputation and osseous destructive changes to his calcaneus consistent with osteomyelitis. He has an MRI pending. He has had arterial Doppler studies and the results of the arterial Doppler studies have suggested moderate abnormal waveforms of the popliteal and the posterior tibial artery with severe nonocclusive disease. There is also occlusion of the anterior tibial artery and dorsalis pedis artery noted. REVIEW OF SYSTEMS: CONSTITUTIONAL: He is denying any chills, fevers or night sweats. No nausea or vomiting, no diarrhea. HEENT: No problems with his eyes, ears, nose or throat. CARDIOVASCULAR: He has peripheral vascular disease affecting the right lower extremity. GENITOURINARY: End-stage renal disease. He has had his PermCath dislodged. PSYCHIATRIC: Denied any depression. INTEGUMENT: He has psoriasis and psoriatic arthritis. He has a chronic right foot ulcer to the posterior heel with a black fibronecrotic foul smelling base. PHYSICAL EXAMINATION: EXTREMITIES: Today shows his left foot is warm. He has elongated, thickened, brittle, gryphotic toenails to his left foot x 5. He has a fibronecrotic ulcer, black, foul smelling 8 x 8 cm from the posterior heel. He has exposed bone of the calcaneus, there is exposed Achilles tendon in the wound bed. 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 PLAN: We are awaiting his PermCath placement. We are awaiting MRI to evaluate the patient for the extent of the osteomyelitis of the right heel. We are awaiting evaluation of his circulation status by the Cardiology Service. The patient is currently receiving the IV vancomycin and IV cefepime. We are awaiting the results of the cultures from his heel wound. We will continue with Betadine dressings, offloading measures and follow the patient closely while in-house. TID: [id number] RECEIPT: [id number]
[2024-05-23 06:17] LABS: ALBUMIN 2.4 g/dL (3.5-5.0); BILIRUBIN,TOTAL 0.3 mg/dL (0.2-1.0); CREATININE 7.9 mg/dL (0.5-1.3); POTASSIUM 5.4 mmol/L (3.5-5.1); TOTAL PROTEIN, SERUM 5.8 g/dL (6.0-8.3)
[2024-05-23 06:25] LABS: BASOPHILS # (AUTO) 0.03 K/uL (0.00-0.20); BASOPHILS % (AUTO) 0.3 % (0.0-5.0); EOSINOPHILS # (AUTO) 0.04 K/uL (0.00-0.70); EOSINOPHILS % (AUTO) 0.4 % (0.0-8.0); HEMATOCRIT 22.6 % (42-54); IMMATURE GRANULOCYTE ABSOLUTE 0.09 K/uL (0-1); LYMPHOCYTES # (AUTO) 1.8 K/uL (1.0-4.8); LYMPHOCYTES % (AUTO) 16.6 % (21.0-51.0); MEAN CORPUSCULAR HEMOGLOBIN 31.2 pg (27.0-33.0); MEAN CORPUSCULAR HGB CONC 31.9 g/dL (32.0-36.0); MEAN CORPUSCULAR VOLUME 97.8 fL (79-99); MONOCYTES # (AUTO) 0.7 K/uL (0.1-1.0); MONOCYTES % (AUTO) 6.2 % (3.0-13.0); NEUTROPHILS % (AUTO) 75.7 % (40.0-77.0); PLATELET COUNT (AUTO) 231 K/uL (130-400); RED BLOOD CELL COUNT(AUTO) 2.31 MIL/uL (4.50-6.20); RED CELL DISTRIBUTION WIDTH 16.3 % (11.0-15.5); WHITE BLOOD COUNT (AUTO) 10.6 K/uL (4.8-10.8)
[2024-05-23] MEDS: Vitamin B Complex/Vit C/Folic Acid PO SCH (09:00)
[2024-05-23] MEDS: PANTOPrazole 40 MG TAB DR PO SCH (09:00)
[2024-05-23] MEDS ORDERED: ASPIRIN 81MG CHEW TAB PO SCH (09:00)
--- NOTE | 2024-05-23 09:00 | NUR ---
LATE ENTRY PATIENT INFORMED OF PENDING MRI PF RT FOOT , PATIENT REFUSED MRI, STATES I AM GETTING MY PERMACATH TODAY AND THEN I AM LEAVING.
--- NOTE | 2024-05-23 10:01 | NUR ---
Nurse will call if the patient wishes to attempt the mri today.
[2024-05-23] MEDS ORDERED: cloPIDOgrel 75MG TAB PO SCH ×2 (13:00→17:00)
--- NOTE | 2024-05-23 13:23 | NUR ---
DR CROUCH HERE SPOKE WITH PATIENT ,PATIENT AGREED TO SURGERY RT BKA ,DR SHEA STATED WILL PLACE ORDERS FOR DR DAVIS, DR DAVIS NOTIFIED BY TELEPHONE AND IS AWARE.
--- NOTE | 2024-05-23 14:26 | PN ---
[facility] PROGRESS NOTE Date of Service: May 23, 2024 Time of Service: 14:[address] Bernal SUBJECTIVE: [ 05/22/23 59-year-old male with underlying history of hypertension, hyperlipidemia, peripheral arterial disease, type 2 diabetes mellitus, ESRD on chronic home hemodialysis of Wednesday, Wednesday, Wednesday, history of chronic diabetic foot ulcer of the right heel being followed by Podiatry as outpatient, psoriasis on chronic outpatient steroids and Remicade infusion who presented to the ER after his PermCath for hemodialysis was dislodged. Dislodgement happened on Wednesday and patient decided to come to the ER today for further evaluation. Patient states that similar episode has happened about six months ago and patient had PermCath placed by IR. Patient denies any fevers or chills. Reports that he is due for home hemodialysis today. He has a history of chronic diabetic foot/ heel ulcer being followed by Dr. Jackson as outpatient. He was seen by Dr. Jackson recently and has been taking oral outpatient antibiotics with doxycycline. He is supposed to see Dr. Mata with Infectious Disease on 05/26/2024 given persistent nonresolving i nfection. [place] [facility] after he was found to have cellulitis involving the TMA site of the right foot along with heel ulcer. Patient was found to have polymicrobial infection with Enterococcus faecalis, Pseudomonas aeruginosa and Bacteroides. He underwent debridement and wound VAC placement and was eventually discharged to [facility]. Patient was also seen by Cardiology and underwent peripheral angiogram with findings of severe right lower extremity PAD and patient underwent angioplasty of the right popliteal and distal SFA by Dr. Arzate. He was supposed to be on dual antiplatelet therapy with aspirin and Plavix but patient states that he has not taken either aspirin or Plavix after discharge from [facility]. On presentation to the hospital, patient was noted to be afebrile and hemodynamically stable. EKG showed normal sinus rhythm. chest x-ray showed no pulmonary edema. [place] [address], hemoglobin of 8.2, platelet count of 250,000. Patient initially stated that he did not want to be admitted and wanted IR to change catheter and be discharged home. But after further discussion, he is agreeable to be admitted for further evaluation by Dr. Jacskon with regards to nonhealing ulcer/eschar of the right foot. we will rule out any active cellulitis and patient will be started on broad-spectrum antibiotics. Blood cultures will be obtained. Consultation with IR will be obtained as well for placement of PermCath. We will see how patient progresses. Patient has significant PAD, patient may need Cardiology evaluation as well as he has been off dual antiplatelet therapy for several months now. 05/23/23 patient was seen by nurse practitioner and physician during rounding in room 419. at the bedside. Per RN patient has been refusing labs that were ordered for PermCath placement. Patient has no access for dialysis at this moment. Patient was evaluated by Dr. Jackson and that is recommending Betadine dressing. Also cardiology recommendation is still pending. Podiatry order MRI ankle right foot but unfortunately patient is refusing scan as well. Patient stated that he came to [facility] only to get PermCath placement and he is leaving. He threatened that if he will not get PermCath by 2:00 p.m. he will leave AMA. Patient is refusing Cardiology consultation to evaluate arteries and is also refusing ID consultation for possible osteomyelitis for antibiotics. We will continue to monitor patient in the meantime. A.m. labs] REVIEW OF SYSTEMS CONSTITUTIONAL: reports that permacath was dislodged today NEUROLOGICAL: Denies headache, amaurosis fugax, motor weakness, sensory deficit, vertigo/spinning sensation, gait abnormalities, or tremors. ENT: No hearing loss, otalgia, otorrhea, rhinitis, rhinorrhea, hoarseness, or sore throat. CARDIOVASCULAR: Denies any exertional angina, dyspnea on exertion, orthopnea, paroxysmal nocturnal dyspnea, palpitations, life-threatening arrhythmias, claudication. PULMONARY: Denies any shortness of breath, cough, phlegm/sputum, hemoptysis, pleuritic chest pain. SLEEP: Denies morning headaches, daytime somnolence or napping. Denies difficulty falling asleep, staying asleep, waking from sleep. Denies knowledge of snoring. GASTROINTESTINAL: Denies any type of dysphagia to either liquids or solids. Denies nausea, vomiting, pyrosis, early satiety, abdominal pain, diarrhea, constipation, or changes in stool consistency or caliber. Denies coffee-ground emesis, hematemesis, hematochezia, or melanotic stools. GENITOURINARY: Denies frequency, urgency, nocturia, hematuria or incontinence (Storage/Irritative symptoms.) Low urinary stream, straining to void, urinary intermittency or hesitancy, splitting of the voiding stream, terminal dribbling. ENDOCRINOLOGIC: Denies polyuria, polydipsia, polyphagia or heat/cold intolerances. HEMATOLOGIC: Denies thrombophilia/previous clots, or coagulopathy/bleeding disorders. ONCOLOGIC: Denies personal history of malignancy. DERMATOLOGIC: ulcer involving the right foot heel PSYCHIATRIC: Denies any suicidal or homicidal ideation. Denies hallucinations. PHYSICAL EXAM GENERAL APPEARANCE: The patient is awake, alert, and oriented, in no acute cardiopulmonary distress. NEUROLOGICAL: Cranial nerves II-XII grossly intact. Motor is 5/5 in bilateral upper and lower extremities proximal to distal. No sensory deficits. HEENT: Face is symmetric. Pupils are equal and reactive. Extraocular movements are intact. NECK: Supple. No JVD. No thyromegaly. No submental, submandibular, pre- /postauricular, occipital or supraclavicular lymphadenopathy. CHEST: Normal chest expansion. No Telemetry. LUNGS: Absence of any rales, rhonchi or any wheezing. CARDIOVASCULAR: Regular. S1 and S2 normal. No appreciable rubs, murmurs or gallops. ABDOMEN: Soft, nontender, and nondistended. There is no rebound, voluntary guarding, or rigidity. : Deferred. No Hutson. EXTREMITIES: Patient has heel has a large area of eschar with possible necrotic region SKIN: No skin breakdown. Vital Signs (last 8hr) Date Time Temp Pulse Resp B/P (MAP) Pulse Ox O2 Delivery O2 Flow Rate FiO2 05/23/24 12:12 97.7 64 19 137/64 93 Room Air 05/23/24 08:00 97.9 87 19 151/82 95 Room Air LABS: Laboratory: Test 05/23/24 05:27 05/23/24 05:03 05/22/24 07:50 Range/Units White Blood Count 10.6 4.8-10.8 K/uL Red Blood Count 2.31 L 4.50-6.20 MIL/uL Hemoglobin 7.2 L 14.0-18.0 g/dL Hematocrit 22.6 L 42-54 % Mean Corpuscular Volume 97.8 79-99 fL Mean Corpuscular Hemoglobin 31.2 27.0-33.0 pg Mean Corpuscular Hemoglobin Concent 31.9 L 32.0-36.0 g/dL Red Cell Distribution Width 16.3 H 11.0-15.5 % Platelet Count 231 130-400 K/uL Mean Platelet Volume 10.8 H 7.5-10.5 fL Immature Granulocyte % (Auto) 0.8 0-1 % Neutrophils (%) (Auto) 75.7 40.0-77.0 % Lymphocytes (%) (Auto) 16.6 L 21.0-51.0 % Monocytes (%) (Auto) 6.2 3.0-13.0 % Eosinophils (%) (Auto) 0.4 0.0-8.0 % Basophils (%) (Auto) 0.3 0.0-5.0 % Neutrophils # (Auto) 8.0 H 1.8-7.7 K/uL Lymphocytes # (Auto) 1.8 1.0-4.8 K/uL Monocytes # (Auto) 0.7 0.1-1.0 K/uL Eosinophils # (Auto) 0.04 0.00-0.70 K/uL Basophils # (Auto) 0.03 0.00-0.20 K/uL Absolute Immature Granulocyte (auto 0.09 0-1 K/uL Nucleated Red Blood Cells 0.0 0.0-0.19 % Sodium Level 144 136-145 mmol/L Potassium Level 5.4 H 3.5-5.1 mmol/L Chloride Level 107 101-111 mmol/L Carbon Dioxide Level 22 21-32 mmol/L Blood Urea Nitrogen 79 *H 7-18 mg/dL Creatinine 7.9 H 0.5-1.3 mg/dL Glomerular Filtration Rate Calc 7 >90 mL/min Random Glucose 243 H 70-105 mg/dL Total Calcium 7.5 L 8.5-10.1 mg/dL Magnesium Level 2.00 1.80-2.40 mg/dL Total Bilirubin 0.3 # 0.2-1.0 mg/dL Aspartate Amino Transf (AST/SGOT) 10 10-37 U/L Alanine Aminotransferase (ALT/SGPT) 13 12-78 U/L Alkaline Phosphatase 89 50-136 U/L Total Protein 5.8 L 6.0-8.3 g/dL Albumin 2.4 L 3.5-5.0 g/dL Whole Blood Glucose 214 #H 70-110 MG/DL Erythrocyte Sedimentation Rate 30 H 0-20 MM/HR Prothrombin Time 10.8 9.6-11.6 SEC Prothromb Time International Ratio 0.96 0.85-1.15 Activated Partial Thromboplast Time 26.8 26.3-35.5 SEC Hemoglobin A1c 8.6 H 4.0-6.0 % Estimated Average Glucose (eAG) 200 H 70-126 mg/dL Direct Bilirubin 0.1 0.0-0.3 mg/dL C-Reactive Protein, Quantitative 46.40 H 0.5-3.0 mg/L Procalcitonin 0.41 0.05-0.5 ng/mL Thyroid Stimulating Hormone (TSH) 0.65 0.36-3.74 uIU/mL Current Medications Medications (Trade) Dose Ordered Sig/Idania Route PRN Reason Start Time Stop Time Status Last Admin Dose Admin Acetaminophen (TYLenol 325MG TAB) 650 mg Q6H PRN PO MILD PAIN (1-3) 05/22/24 10:30 06/21/24 10:29 Acetaminophen/ Hydrocodone Bitart (NORco 5/325MG) 1 tab Q8H PRN PO MODERATE PAIN (4-6) 05/22/24 23:00 05/27/24 22:59 05/22/24 22:51 1 TAB Aspirin (Aspirin 81mg Chew Tab) 81 mg DAILY PO 05/23/24 09:00 05/23/24 00:22 DC Aspirin (Aspirin 81mg Chew Tab) 81 mg DAILY PO 05/23/24 17:00 06/22/24 16:59 Atorvastatin Calcium (LIPItor 40MG) 40 mg HS PO 05/23/24 21:00 06/22/24 20:59 Cefepime HCl (MAXipime 1 GM vial) 1 gm Q24H IVPB 05/22/24 11:00 06/01/24 10:59 05/23/24 13:06 1 GM Clopidogrel Bisulfate (plaVIX 75MG) 75 mg DAILY PO 05/23/24 13:00 05/23/24 00:22 DC Clopidogrel Bisulfate (plaVIX 75MG) 75 mg DAILY PO 05/23/24 17:00 06/22/24 16:59 Hydralazine HCl (APRESOLine 20MG INJ) 5 mg Q6H PRN IV ADMINISTER FOR SBP > 160 05/22/24 12:30 06/21/24 12:29 05/22/24 21:19 5 MG Insulin Human Regular (humuLIN R 100 UNIT/ML 3ML) INSULIN SLIDING SCAL... ACHS SQ 05/22/24 11:30 06/21/24 11:29 05/22/24 12:11 3 UNIT Nifedipine (adALAT 30MG) 60 mg Q24H PO 05/22/24 11:00 05/22/24 19:16 DC Nifedipine (adALAT 30MG) 60 mg Q24H PO 05/22/24 19:30 06/21/24 19:29 05/22/24 19:35 60 MG Ondansetron HCl (zoFRAN 4MG INJ) 4 mg Q6H PRN IVP NAUSEA/VOMITING 05/22/24 10:30 06/21/24 10:29 Pantoprazole Sodium (PROTonix 40MG TAB) 40 mg DAILY PO 05/23/24 09:00 06/22/24 08:59 Pharmacy Profile Note (Pharmacy Communication) 1 each ONCE MISC 05/22/24 11:00 05/22/24 10:57 DC Prednisone (deltaSONE/ oraSONE 5MG) 5 mg BID PO 05/22/24 21:00 06/21/24 20:59 05/22/24 19:42 5 MG Vancomycin HCl (Vancomycin Protocol) 1 each AD IV 05/22/24 11:00 06/05/24 10:59 Vitamin B Complex/ Vit C/Folic Acid (Nephrovite Tablet) 1 cap DAILY PO 05/23/24 09:00 06/22/24 08:59 DIAGNOSTICS / RADIOLOGY: [ ] ASSESSMENT: Dislodged PermCath, POA History of ESRD on home hemodialysis therapy, POA Possible osteomyelitis per foot x-ray 05/22/2024 Chronic leukocytosis, POA Underlying immunosuppression on outpatient treatment with steroids and Remicade, POA Nonhealing diabetic foot ulcer/heel ulcer with associated deep eschar/necrotic region, being followed by Dr. Jackson as outpatient, POA Anemia of renal disease, POA Underlying history of type 2 diabetes mellitus, POA History of chronic prednisone use as outpatient, POA Hypertension, POA Hyperlipidemia, POA History of peripheral arterial disease, POA Prior history of angioplasty to right popliteal artery and distal SFA by Dr. Arzate on 01/24/2024, POA History penicillin allergy, POA Noncompliance PLAN: Admit to: Medical-surgical with telemetry Consults: Business Management Analyst, patient is refusing secondary education professor, casino floor walker, patient is refusing ID Antibiotics: Vancomycin, cefepime Tests: MRI ankle right foot which patient is refusing NEURO: Minimize central acting medications as possible. Fall Precautions. Well lighted room through the day and minimize interruptions through the night t o prevent acute delirium. PULMONARY: Supplemental 02 as needed BiPAP as necessary, for respiratory distress Titrate Fio2 to keep Spo2 > or = 90% DuoNebs and CPT as needed IS hourly while awake for pulmonary hygiene Out of bed to chair as tolerated VAP Bundle Maintain aspiration precautions at all times CARDIOVASCULAR: Follow hemodynamics. Vital signs per facility protocol Arterial ultrasound PVD GI & NUTRITION: Continue nutritional support Aspirations precautions Prokinetic agents and laxatives as needed KIDNEYS & ELECTROLYTES: ESRD dialysis Wednesday Strict monitoring of intake and output Daily weights Avoid nephrotoxic agents Monitor electrolytes and replace as needed Goal urine output of 30mL/hr or 0.5mL/kg/hr Medications to be dosed according to renal function. Avoid contrast if possible ENDOCRINE: Maintain blood glucose between 100-180 at all times. Insulin sliding scale for blood glucose management Hypoglycemia and hyperglycemia protocol in place INFECTIOUS DISEASE: Trend temperature, WBC and procalcitonin level Follow cultures, deescalate antibiotics as soon as possible. Panculture if new onset fever Vancomycin, cefepime ABX HEMATOLOGY & COAGULATION: Monitor H&H. Keep Hgb > 7 Transfuse 1 unit of PRBC for Hgb < 7 Transfuse 1 pack of platelets of platelets < 20, 000 Watch for any signs and symptoms of bleeding SKIN: Pressure ulcer prevention per facility protocol Specialty mattress as needed Treatment plan discussed with patient and family at the bedside Medications to be reconciled once obtained by patient and/or family and available to be reconciled in computer p.r.n. medication for pain nausea and vomiting Questions were answered We will continue to monitor the patient closely Gas Cutting Machine Operator for disposition Rehab: PT/OT GI: PPI DVT: SCD's Code Status: Full Resuscitation Disposition: TBD Prognosis: Guarded ATTESTATION BY PHYSICIAN I have seen and examined the patient. I reviewed the documentation, medical decision making, and treatment plan as noted by the mid-level provider above. I agree with the findings and plan of care. SILVER BERNAL MD, KATARZYNA B RADIOCOMMUNICATIONS TECHNICIAN May 23, 2024 14:26
--- NOTE | 2024-05-23 15:38 | CONS ---
[facility] CARDIOLOGY CONSULTATION REPORT Cardiology consultation note dictated for Nae Crabtree MD Primary industrial mechanic: Chuck Olmedo MD Date Patient Seen: May 23, 2024 Requesting Physician: Ranulfo Qureshi MD Reason for Consultation: PAD History of Present Illness: This is a 59-year-old male with a past medical history of hypertension, diabetes mellitus type 2 with nephropathy, probable nonobstructive CAD with CT coronary calcium score of 87 in 06/2021, end-stage renal disease on chronic home hemodialysis MWF, PAD, s/p right TMA, s/p debridement of the right heel wound on 01/16/24, s/p successful IVUS guided, IVL (Shockwave 4x60m), and REMOTE SENSING SPECIALIST/DCB of the RIGHT popliteal (4x80mm DCB) and distal SFA (5x40mm DCB) with sikhism of brink 3v runoff on 01/23/2025, chronic non-healing right heel wound with culture positive for Enterococcus faecalis and pseudomonas aeruginosa in 01/[address] [facility] x3wks then was not discharged on DAPT, and psoriasis on immunosuppressants who presented to the ED due to dislodgment of his PermCath. Cardiology has been consulted for PAD. The patient states he has been having weekly visits to see Dr. Candi Jackson for his right heel wound and has been doing dressing changes at home since being discharged from [facility] in early February 2024. He received three weeks of antibiotic therapy for RLE cellulitis. The patient has refused recommendations for a right BKA in the past. RLE arterial Doppler on 05/22/2024 demonstrated occlusion of the proximal popliteal artery with reconstitution via collaterals, occlusion of the anterior tibial artery and dorsalis pedis artery. Monophasic waveforms of the popliteal artery and posterior tibial artery consistent with severe nonocclusive disease. Right foot x-ray suggestive of osteomyelitis. Orders for RLE MRIs have been cancelled. Dressing in place to right TMA site. He denies chest pain, chest pressure, palpitations, dizziness, and shortness of breath, but does admit to RLE discomfort. Past Medical History: As per HPI and summarized below Past Surgical History: Cholecystectomy Right TMA Family History: The patient's mother had HTN and heart disease. The patient's father had a CT and DM type II. Social History: The patient lives with his . Habits: The patient denies alcohol, tobacco or illicit drug use. Home Meds: Medications pending reconciliation Current Meds: Current Medications Medications Dose Ordered [facility] Start Time Stop Time Status Last Admin Acetaminophen 650 mg Q6H PRN 05/22/24 10:30 06/21/24 10:29 Ondansetron HCl 4 mg Q6H PRN 05/22/24 10:30 06/21/24 10:29 Insulin Human Regular INSULIN SLIDING SCAL... ACHS 05/22/24 11:30 06/21/24 11:29 05/22/24 12:11 Pantoprazole Sodium 40 mg DAILY 05/23/24 09:00 06/22/24 08:59 Cefepime HCl 1 gm Q24H 05/22/24 11:00 06/01/24 10:59 05/23/24 13:06 Vancomycin HCl 1 each AD 05/22/24 11:00 06/05/24 10:59 Prednisone 5 mg BID 05/22/24 21:00 06/21/24 20:59 05/22/24 19:42 Vitamin B Complex/ Vit C/Folic Acid 1 cap DAILY 05/23/24 09:00 06/22/24 08:59 Hydralazine HCl 5 mg Q6H PRN 05/22/24 12:30 06/21/24 12:29 05/22/24 21:19 Nifedipine 60 mg Q24H 05/22/24 19:30 06/21/24 19:29 05/22/24 19:35 Acetaminophen/ Hydrocodone Bitart 1 tab Q8H PRN 05/22/24 23:00 05/27/24 22:59 05/22/24 22:51 Aspirin 81 mg DAILY 05/23/24 17:00 06/22/24 16:59 Atorvastatin Calcium 40 mg HS 05/23/24 21:00 06/22/24 20:59 Review of Systems: CONST: No fever, fatigue, or weight changes. EYES: No recent vision problems. ENT: No congestion, ear pain, or sore throat. C/V: No chest pain, palpitations, or edema. RESP: No cough, congestion, wheezing or shortness of breath. GI: No abdominal pain, nausea, vomiting, constipation, or diarrhea. : No incontinence or dysuria. SKIN: No rash. Admits to RLE discomfort. NEURO: No headache, focal numbness or weakness, dizziness, or seizures. PSYCH: No depression or anxiety. HEME: No abnormal bruising or bleeding. LYMPH: No swollen glands. Physical Examination: GENERAL: No acute distress. HEAD: Normal with no signs of head trauma. EYES: PERRLA, EOMI, conjunctiva and sclera normal. ENT: Hearing grossly intact, normal oropharynx. NECK: Supple without JVD. There is no tenderness, lymphadenopathy, or masses. No thyromegaly. Normal carotid upstrokes without bruits. LUNGS: Clear breath sounds bilaterally. No wheezes, or rhonchi. HEART: Normal rate and rhythm. Normal S1 and S2 without murmurs, gallop or rub. VASC: Left DP pulse 1-2+. Unable to palpate Right DP pulse, dressing in place. ABD: Bowel sounds normal, soft, nontender, no masses, no organomegaly. No audible bruits. : Not examined LYMPH: No lymphadenopathy noted. EXT: No clubbing, cyanosis or edema. SKIN: LSBC PermCath. Rt TMA. NEURO: Awake, alert, and oriented x3. No focal sensory or strength deficits noted. Vital Signs (last 8hr) Date Time Temp Pulse Resp B/P (MAP) Pulse Ox O2 Delivery O2 Flow Rate FiO2 05/23/24 12:12 97.7 64 19 137/64 93 Room Air 05/23/24 08:00 97.9 87 19 151/82 95 Room Air Laboratory: Hematology Labs: Test 05/23/24 05:27 05/22/24 07:50 Range/Units White Blood Count 10.6 4.8-10.8 K/uL Red Blood Count 2.31 L 4.50-6.20 MIL/uL Hemoglobin 7.2 L 14.0-18.0 g/dL Hematocrit 22.6 L 42-54 % Mean Corpuscular Volume 97.8 79-99 fL Mean Corpuscular Hemoglobin 31.2 27.0-33.0 pg Mean Corpuscular Hemoglobin Concent 31.9 L 32.0-36.0 g/dL Red Cell Distribution Width 16.3 H 11.0-15.5 % Platelet Count 231 130-400 K/uL Mean Platelet Volume 10.8 H 7.5-10.5 fL Immature Granulocyte % (Auto) 0.8 0-1 % Neutrophils (%) (Auto) 75.7 40.0-77.0 % Lymphocytes (%) (Auto) 16.6 L 21.0-51.0 % Monocytes (%) (Auto) 6.2 3.0-13.0 % Eosinophils (%) (Auto) 0.4 0.0-8.0 % Basophils (%) (Auto) 0.3 0.0-5.0 % Neutrophils # (Auto) 8.0 H 1.8-7.7 K/uL Lymphocytes # (Auto) 1.8 1.0-4.8 K/uL Monocytes # (Auto) 0.7 0.1-1.0 K/uL Eosinophils # (Auto) 0.04 0.00-0.70 K/uL Basophils # (Auto) 0.03 0.00-0.20 K/uL Absolute Immature Granulocyte (auto 0.09 0-1 K/uL Nucleated Red Blood Cells 0.0 0.0-0.19 % Erythrocyte Sedimentation Rate 30 H 0-20 MM/HR Chemistry Labs: Test 05/23/24 05:27 05/23/24 05:03 05/22/24 07:50 Range/Units Sodium Level 144 136-145 mmol/L Potassium Level 5.4 H 3.5-5.1 mmol/L Chloride Level 107 101-111 mmol/L Carbon Dioxide Level 22 21-32 mmol/L Blood Urea Nitrogen 79 *H 7-18 mg/dL Creatinine 7.9 H 0.5-1.3 mg/dL Glomerular Filtration Rate Calc 7 >90 mL/min Random Glucose 243 H 70-105 mg/dL Total Calcium 7.5 L 8.5-10.1 mg/dL Magnesium Level 2.00 1.80-2.40 mg/dL Total Bilirubin 0.3 # 0.2-1.0 mg/dL Aspartate Amino Transf (AST/SGOT) 10 10-37 U/L Alanine Aminotransferase (ALT/SGPT) 13 12-78 U/L Alkaline Phosphatase 89 50-136 U/L Total Protein 5.8 L 6.0-8.3 g/dL Albumin 2.4 L 3.5-5.0 g/dL Whole Blood Glucose 214 #H 70-110 MG/DL Hemoglobin A1c 8.6 H 4.0-6.0 % Estimated Average Glucose (eAG) 200 H 70-126 mg/dL Direct Bilirubin 0.1 0.0-0.3 mg/dL C-Reactive Protein, Quantitative 46.40 H 0.5-3.0 mg/L Procalcitonin 0.41 0.05-0.5 ng/mL Thyroid Stimulating Hormone (TSH) 0.65 0.36-3.74 uIU/mL Coagulation Labs: Test 05/22/24 07:50 Range/Units Prothrombin Time 10.8 9.6-11.6 SEC Prothromb Time International Ratio 0.96 0.85-1.15 Activated Partial Thromboplast Time 26.8 26.3-35.5 SEC Diagnostics / Radiology: Impression and Plan: PAD Chronic non-healing right heel wound Hx of Right TMA S/p successful IVUS guided, IVL (Shockwave 4x60m), and REMOTE SENSING SPECIALIST/DCB of the RIGHT popliteal (4x80mm DCB) and distal SFA (5x40mm DCB) with sikhism of brink 3v runoff on 01/23/[address] Christa Arzate Wound culture positive for Enterococcus faecalis and pseudomonas aeruginosa in 01/2024 with abx treatment at [facility] x 3 wks HTN DM type II ESRD on home HD MWF Anemia of chronic disease Psoriasis on immunosuppressants Probable nonobstructive CAD with CT coronary calcium score of 87 in 06/2021 Chronic non-healing right heel wound, with non compliance with DAPT post recent intervention. RLE arterial Doppler on 05/22/2024 with occlusion of the proximal popliteal artery with reconstitution via collaterals, occlusion of the anterior tibial artery and dorsalis pedis artery. Monophasic waveforms of the popliteal artery and posterior tibial artery consistent with severe nonocclusive disease. The patient has refused recommendation for a right BKA on multiple occasions Right foot x-ray suggestive of osteomyelitis -Obtain CT angio abd aorta w/ runoff, further recommendations pending results -Continue medical therapy with DAPT in interim PARISA HOOD May 23, 2024 15:38 NAE CRABTREE DO May 24, 2024 10:30
[2024-05-23] MEDS ORDERED: LIDOCAINE HCL 400MG/20ML VIAL ONE ×2 (15:40→16:34)
[2024-05-23] MEDS ORDERED: HEParin-NS 1,000 UNIT/500 ML 500 ML IV ONE (15:41)
[2024-05-23] MEDS ORDERED: MIDAZOLAM HCL 1 MG/ML 2ML VIAL ONE ×2 (15:41→16:03)
[2024-05-23] MEDS ORDERED: FENTanyl CITRate PF 50 MCG/1 ML 2ML VIAL ONE (15:41)
[2024-05-23] MEDS ORDERED: HEParin 1,000 UNIT VIAL ONE (15:41)
--- NOTE | 2024-05-23 15:48 | NUR ---
DCP Pt awake, alert, oriented x3 lives with Galina Mcfarland [phone]. Pt verbalizes has a wheelchair, ramp, and anticipates discharge is for home. Addendum: 05/23/24 at 1558 by MARGARETH GAN RN CM Amended: Links added.
[2024-05-23] MEDS: ASPIRIN 81MG CHEW TAB PO SCH (17:00)
--- NOTE | 2024-05-23 17:13 | PRN ---
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 COMPARISON: None TECHNIQUE: Fluoroscopic guidance with placement of left internal jugular-right atrial tunneled Duramax dialysis catheter. FINDINGS: The right internal jugular vein is occluded at the junction with the superior vena cava and right subclavian vein. Left internal jugular vein is patent. PROCEDURE: Informed consent obtained the patient following explanation of risk, benefits, complications. Timeout performed by nursing staff. Continuous monitoring was performed of the patient during the procedure I nursing personnel including cardiovascular status, oxygenation, respiration. Patient received intravenous titrated doses of Versed and fentanyl during the procedure administered by nursing personnel. Right neck and left neck were prepped and draped in sterile fashion. Ultrasound of the right neck demonstrates large amount thrombus within the proximal internal jugular vein. Following local anesthesia with 1% lidocaine, access gained into the right internal jugular vein under direct ultrasound guidance. Guidewire could not be passed beyond the area of obstruction at the junction with the SVC. This site was abandoned and attention was made to the left internal jugular venous access site. Following local anesthesia with 1% lidocaine subcutaneous, needle access into the left internal jugular vein obtained with ultrasound guidance. Fine guidewire placement, microcatheter access was passed over the guidewire. J-wire was then passed through the sheath in past the right atrium into the inferior vena cava. Fashion dilatation performed, tunneled Duramax catheter 32 cm in length, was passed over guidewire and the tip of the catheter positioned within the right atrium. Both ports were flushed, aspirated, flushed, heparinized, capped, clamped. Catheter secured to the skin with retention suture and sterile dressing. Patient tolerated procedure well without evidence of comp occasions. Total fluoroscopic time: 3.7 minutes. Estimated blood loss: Less than 8 ml. IMPRESSION: Placement of 32 cm tunneled Duramax dialysis catheter with the tip positioned within the right atrium. Access from the left internal jugular vein. Catheter is ready for immediate use. FAITH BANUELOS DO May 23, 2024 17:13
--- NOTE | 2024-05-23 17:15 | NUR ---
LATE ENTRY PATIENT AGREED TO HAVE DIALYSIS AT THIS TIME CONSENT OBTAINED.
[2024-05-23] MEDS: atorVAStatin 40 MG TABLET PO SCH (20:29)
--- NOTE | 2024-05-23 20:30 | NUR ---
CONSENT: ATTEMPTED TO GET CONSENT FOR CT ANGIO ABD AORTA W/ RUNOFFS. PT STATES HE IS VERY TIRED/SLEEPY AFTER DIALYSIS AND WANTS TO REST TO COME BACK AT LATER TIME. ENCOURAGED TO USE CALL LIGHT FOR ASSISTANCE, CALL MENDOZA WITHIN REACH.
--- NOTE | 2024-05-23 20:43 | NUR ---
PER NURSE PT JUST FINISHED DIALYSIS, DOES NOT WANT TO DO EXAM RIGHT NOW AND WOULD RATHER DO IT IN THE MORNING BECAUSE PATIENT HAS NOT EATEN AND FEELS WEAK AND TIRED. NURSE STATES SHE WILL HAVE CONSENT SIGNED AND READY FOR TOMORROW MORNING. ADVISED NURSE THAT A 20G WILL BE NEEDED IN THE AC FOR EXAM.
--- NOTE | 2024-05-23 21:22 | PN ---
SUBJECTIVE: The patient is a very pleasant 59-year-old diabetic, Latin-[place] male who was admitted to the hospital with having dislodged his peritoneal dialysis access. He has a T-max of 98.6. He has a white count of 10.6, H and H 7.2 and 22.6. Sed rate 30. The patient has had a platelet count of 231, potassium of 5.4. The patient has had arterial Doppler studies, which are suggesting occlusion of the popliteal artery with occlusion of the anterior and dorsalis pedis artery, monophasic waveforms noted in the popliteal and posterior tibial artery. X-rays of his right foot, which showed osseous destructive changes to the calcaneus consistent with osteomyelitis and heavy calcification of his arteries. REVIEW OF SYSTEMS: CONSTITUTIONAL: Concerned of pain to the right foot and ankle. Denies any chills, fevers, night sweats, nausea, vomiting, diarrhea. HEENT: No problems with his eyes, ears, nose, or throat. CARDIOVASCULAR: Having no current chest pain. Peripheral vascular disease per his arterial Doppler studies. GENITOURINARY: No dysuria. GASTROINTESTINAL: No dysphagia. PSYCHIATRIC: Denied any depression. 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 INTEGUMENT: He has a black foul smelling fibronecrotic wound with exposure of the calcaneus posteriorly to the posterior heel, posterior ankle area. OBJECTIVE: His examination today, I cannot palpate his pedal pulses on the right, palpable pedal pulse on the left, large fibronecrotic eschar wound with exposed bone of the calcaneus, exposed bone of the Achilles tendon 8 x 8 cm, foul-smell purulent drainage. ASSESSMENT: A 59-year-old male with ulcer, cellulitis, osteomyelitis, right heel infected necrotic posterior heel ulcer and blood cultures, no growth x 24 hours. The patient is receiving IV vancomycin and IV cefepime. The patient has end-stage renal disease, currently receiving peritoneal dialysis, being evaluated for peritoneal dialysis replacement access. PLAN: I had a long discussion with the patient regarding the infection to his heel, the large area of necrotic tissue with exposure of the bone. Previous MRI is positive for osteomyelitis. My recommendation is the patient will be evaluated for a unwwe-btr-[id number] amputation on the right side. The patient was in agreement. We will consult Dr. Nikolay Montes for evaluation for oixci-hld-gocr amputation on that right side due to his gangrene and osteomyelitis affecting the posterior aspect of the right heel and right ankle. TID: [id number] RECEIPT: [id number]
[2024-05-23 22:28] LABS: HEPATITIS B SURFACE ANTIGEN Non-Reactive (Nonreactive)
[2024-05-23 22:29] LABS: HEPATITIS B CORE AB TOTAL Non-Reactive (Nonreactive)
--- NOTE | 2024-05-23 22:45 | NUR ---
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 PT INSTRUCTED NEED TO PLACE BACK FOR HEART MONITORING. PT ASKED IF WE CAN LEAVE IT OFF UNTIL TOMORROW, PT MADE AWARE IT IS NOT POSSIBLE PER POLICY UNLESS HE WANTS TO SIGN A REFUSAL OF TREATMENT. PT AGREED TO HAVE TELE PLACED BACK ON.
[2024-05-24] VITALS: BP 135/62; PULSE 92; RESP 17; TEMP 97.9
--- NOTE | 2024-05-24 | NUR ---
CONSENT: PT IS MORE AWAKE/ALERT. PT AGAIN MADE AWARE OF NEED FOR CONSENT FOR CT ANGIO W/ RUNOFFS. EXPLAINED PROCEDURE TO PATIENT AND NEED TO START IV IN AC AREA. PT STATES HE NEEDS TO ASK DOCTOR SEVERAL QUESTIONS FIRST BEFORE CONSENTING TO EXAM. CONSENT HAS NOT BEEN OBTAINED. S/R UP X 2, CALL MENDOZA WITHIN REACH.
[2024-05-24 00:48] LABS: HEPATITIS B SURFACE ANTIBODY Negative (Reactive); HEPATITIS C ANTIBODY Non-Reactive (Nonreactive)
[2024-05-24 04:00] VITALS: BP 140/79; PULSE 97; RESP 17; TEMP 98
[2024-05-24 05:57] LABS: BASOPHILS # (AUTO) 0.03 K/uL (0.00-0.20); BASOPHILS % (AUTO) 0.3 % (0.0-5.0); EOSINOPHILS # (AUTO) 0.09 K/uL (0.00-0.70); EOSINOPHILS % (AUTO) 0.9 % (0.0-8.0); HEMATOCRIT 22.5 % (42-54); IMMATURE GRANULOCYTE ABSOLUTE 0.05 K/uL (0-1); LYMPHOCYTES # (AUTO) 1.3 K/uL (1.0-4.8); LYMPHOCYTES % (AUTO) 13.3 % (21.0-51.0); MEAN CORPUSCULAR HEMOGLOBIN 31.6 pg (27.0-33.0); MEAN CORPUSCULAR HGB CONC 32.4 g/dL (32.0-36.0); MEAN CORPUSCULAR VOLUME 97.4 fL (79-99); MONOCYTES # (AUTO) 0.6 K/uL (0.1-1.0); MONOCYTES % (AUTO) 5.8 % (3.0-13.0); NEUTROPHILS # (AUTO) 7.8 K/uL (1.8-7.7); NEUTROPHILS % (AUTO) 79.2 % (40.0-77.0); PLATELET COUNT (AUTO) 198 K/uL (130-400); RED BLOOD CELL COUNT(AUTO) 2.31 MIL/uL (4.50-6.20); WHITE BLOOD COUNT (AUTO) 9.9 K/uL (4.8-10.8)
[2024-05-24 06:09] LABS: ALBUMIN 2.4 g/dL (3.5-5.0); BILIRUBIN,TOTAL 0.5 mg/dL (0.2-1.0); CREATININE 5.2 mg/dL (0.5-1.3); MAGNESIUM 1.8 mg/dL (1.80-2.40); POTASSIUM 4.5 mmol/L (3.5-5.1); TOTAL PROTEIN, SERUM 5.8 g/dL (6.0-8.3)
--- NOTE | 2024-05-24 06:51 | PN ---
SUBJECTIVE: The patient is a very pleasant 59-year-old male followed up for gangrene and osteomyelitis to the posterior heel, posterior ankle on the right. Dr. Montes, Orthopedics has been consulted for dshcs-wzs-cevu amputation on the right. It has been recommended the patient get a CTA of his abdominal aorta with runoff, he is as of yet not in agreement. He has a white count of 9.9, H and H 7.3 and 22.5. He has platelets of 198. He is currently receiving IV cefepime and IV vancomycin. He is on Plavix, aspirin, atorvastatin. REVIEW OF SYSTEMS: CONSTITUTIONAL: No chills, no fevers, no night sweats, no nausea, vomiting, no diarrhea. HEENT: No problems with eyes, ears, nose or throat. CARDIOVASCULAR: He has known peripheral vascular disease. GENITOURINARY: Receiving hemodialysis. GASTROINTESTINAL: No dysphagia. ENDOCRINE: Diabetes. PSYCHIATRIC: Denied depression. 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 INTEGUMENT: He has a 8 x 8 fibronecrotic gangrenous wound to the posterior aspect of the right heel. He has exposed bone of the calcaneus. OBJECTIVE: On examination today, right foot is warm, I could not palpate his pedal pulses, 8 x 8 cm fibronecrotic foul smelling wound with black necrotic eschar and exposed bone of the calcaneus posteriorly. ASSESSMENT: Ulcer, cellulitis, osteomyelitis, right heel, peripheral vascular disease, end-stage renal disease, on hemodialysis. Dr. Montes has been consulted for evaluation of a asalg-ayg-vibw amputation on that right side. PLAN: We will continue with Betadine dressings. We will continue with the IV vancomycin and cefepime. Continue with hemodialysis support. Continue to follow the patient closely while in-house. TID: [id number] RECEIPT: [id number]
[2024-05-24 08:00] VITALS: BP 145/57; PULSE 87; RESP 16; TEMP 98.6
[2024-05-24] MEDS: cloPIDOgrel 75MG TAB PO SCH (09:00)
--- NOTE | 2024-05-24 09:20 | NUR ---
DR DAVIS CALLED AND INFORMED ME HE IS WAITING FOR ALL ENTITIES INVOLVED IN COMING TO THE CONCLUSION OF THE PATIENT NEEDING SURGERY TO INCLUDE PATIENT AGREEING TO SURGERY , WILL WAIT FOR ALL TESTS .
--- NOTE | 2024-05-24 10:32 | PN ---
[facility] CARDIOLOGY PROGRESS NOTE Date Patient Seen: May 24, 2024 Time of Visit: 10:31 Problem List: RLE non healing wound, prior TMA Interval History: POD 1 from permcath placement Pending CTA runoff study Physical Examination: GENERAL: [No acute distress.] HEAD: [Normal with no signs of head trauma.] LUNGS: [Clear breath sounds bilaterally. HEART: [Normal rate and rhythm. VASC: [Peripheral pulses +2 bilateral radial. Right heel dry ncrosis. EXT: [No edema.] SKIN: [necrosis right heel. NEURO: [Awake, alert, and oriented x3. Laboratory: [ ] Hematology Labs: Test 05/24/24 05:50 Range/Units White Blood Count 9.9 4.8-10.8 K/uL Red Blood Count 2.31 L 4.50-6.20 MIL/uL Hemoglobin 7.3 L 14.0-18.0 g/dL Hematocrit 22.5 L 42-54 % Mean Corpuscular Volume 97.4 79-99 fL Mean Corpuscular Hemoglobin 31.6 27.0-33.0 pg Mean Corpuscular Hemoglobin Concent 32.4 32.0-36.0 g/dL Red Cell Distribution Width 16.0 H 11.0-15.5 % Platelet Count 198 130-400 K/uL Mean Platelet Volume 10.3 7.5-10.5 fL Immature Granulocyte % (Auto) 0.5 0-1 % Neutrophils (%) (Auto) 79.2 H 40.0-77.0 % Lymphocytes (%) (Auto) 13.3 L 21.0-51.0 % Monocytes (%) (Auto) 5.8 3.0-13.0 % Eosinophils (%) (Auto) 0.9 0.0-8.0 % Basophils (%) (Auto) 0.3 0.0-5.0 % Neutrophils # (Auto) 7.8 H 1.8-7.7 K/uL Lymphocytes # (Auto) 1.3 1.0-4.8 K/uL Monocytes # (Auto) 0.6 0.1-1.0 K/uL Eosinophils # (Auto) 0.09 0.00-0.70 K/uL Basophils # (Auto) 0.03 0.00-0.20 K/uL Absolute Immature Granulocyte (auto 0.05 0-1 K/uL Nucleated Red Blood Cells 0.0 0.0-0.19 % Chemistry Labs: Test 05/24/24 05:50 05/24/24 05:40 Range/Units Sodium Level 141 136-145 mmol/L Potassium Level 4.5 3.5-5.1 mmol/L Chloride Level 103 101-111 mmol/L Carbon Dioxide Level 30 21-32 mmol/L Blood Urea Nitrogen 44 H 7-18 mg/dL Creatinine 5.2 H 0.5-1.3 mg/dL Glomerular Filtration Rate Calc 12 >90 mL/min Random Glucose 158 H 70-105 mg/dL Total Calcium 7.3 L 8.5-10.1 mg/dL Magnesium Level 1.80 1.80-2.40 mg/dL Total Bilirubin 0.5 0.2-1.0 mg/dL Aspartate Amino Transf (AST/SGOT) 11 10-37 U/L Alanine Aminotransferase (ALT/SGPT) 12 12-78 U/L Alkaline Phosphatase 81 50-136 U/L Total Protein 5.8 L 6.0-8.3 g/dL Albumin 2.4 L 3.5-5.0 g/dL Whole Blood Glucose 146 H 70-110 MG/DL Impression and Plan: PAD Chronic non-healing right heel wound, XR revealing possible osteomyelitis at TMA site. S/p successful IVUS guided, IVL (Shockwave 4x60m), and PATIENT ACCESS COORDINATOR/DCB of the RIGHT popliteal (4x80mm DCB) and distal SFA (5x40mm DCB) with advent of brink 3v runoff on 01/23/2025 -- noncompliance with DAPT post PVI Wound culture positive for Enterococcus faecalis and pseudomonas aeruginosa in 01/2024 with abx treatment at [facility] [address] x 3 wks HTN DM type II ESRD on home HD [facility]WF Anemia of chronic disease Psoriasis on immunosuppressants Probable nonobstructive CAD with CT coronary calcium score of 87 in 06/2021 Pending CTA runoff study for additional imaging of the peripheral arterial vasculature Continue with DAPT, statin MELISSA MCGILL DO May 24, 2024 10:32
[2024-05-24] MEDS: MIDAZOLAM HCL 1 MG/ML 2ML VIAL IVP ONE (11:30)
[2024-05-24 11:53] VITALS: BP 159/86; PULSE 87; RESP 20; TEMP 98.8
--- NOTE | 2024-05-24 12:05 | NUR ---
DR MCGILL NOTIFIED OF PATIENTS REFUSAL FOR IV FOR CT ANGIO TEST.
[2024-05-24 16:00] VITALS: BP 162/74; PULSE 89; RESP 20; TEMP 98.4
--- NOTE | 2024-05-24 16:02 | PN ---
[facility] PROGRESS NOTE Date of Service: May 24, 2024 Time of Service: 15:[address] Huang SUBJECTIVE: [ 05/22/23 59-year-old male with underlying history of hypertension, hyperlipidemia, peripheral arterial disease, type 2 diabetes mellitus, ESRD on chronic home hemodialysis of Wednesday, Wednesday, Wednesday, history of chronic diabetic foot ulcer of the right heel being followed by Podiatry as outpatient, psoriasis on chronic outpatient steroids and Remicade infusion who presented to the ER after his PermCath for hemodialysis was dislodged. Dislodgement happened on Wednesday and patient decided to come to the ER today for further evaluation. Patient states that similar episode has happened about six months ago and patient had PermCath placed by IR. Patient denies any fevers or chills. Reports that he is due for home hemodialysis today. He has a history of chronic diabetic foot/ heel ulcer being followed by Dr. Jackson as outpatient. He was seen by Dr. Jackson recently and has been taking oral outpatient antibiotics with doxycycline. He is supposed to see Dr. Mata with Infectious Disease on 05/26/2024 given persistent nonresolving infection. Patient was hospitalized in [facility] on 12/2023 after he was found to have cellulitis involving the TMA site of the right foot along with heel ulcer. Patient was found to have polymicrobial infection with Enterococcus faecalis, Pseudomonas aeruginosa and Bacteroides. He underwent debridement and wound VAC placement and was eventually discharged to [facility]. Patient was also seen by Cardiology and underwent peripheral angiogram with findings of severe right lower extremity PAD and patient underwent angioplasty of the right popliteal and distal SFA by Dr. Arzate. He was supposed to be on dual antiplatelet therapy with aspirin and Plavix but patient states that he has not taken either aspirin or Plavix after discharge from [facility]. On presentation to the hospital, patient was noted to be afebrile and hemodynamically stable. EKG showed normal sinus rhythm. chest x-ray showed no pulmonary edema. [place] [address], hemoglobin of 8.2, platelet count of 250,000. Patient initially stated that he did not want to be admitted and wanted IR to change catheter and be discharged home. But after further discussion, he is agreeable to be admitted for further evaluation by Dr. Jackson with regards to nonhealing ulcer/eschar of the right foot. we will rule out any active cellulitis and patient will be started on broad-spectrum antibiotics. Blood cultures will be obtained. Consultation with IR will be obtained as well for placement of PermCath. We will see how patient progresses. Patient has significant PAD, patient may need Cardiology evaluation as well as he has been off dual antiplatelet therapy for several months now. 05/23/23 patient was seen by nurse practitioner and physician during rounding in room 419. at the bedside. Per RN patient has been refusing labs that were ordered for PermCath placement. Patient has no access for dialysis at this moment. Patient was evaluated by Dr. Jackson and that is recommending Betadine dressing. Also cardiology recommendation is still pending. Podiatry order MRI ankle right foot but unfortunately patient is refusing scan as well. Patient stated that he came to [facility] only to get PermCath placement and he is leaving. He threatened that if he will not get PermCath by 2:00 p.m. he will leave AMA. Patient is refusing Cardiology consultation to evaluate arteries and is also refusing ID consultation for possible osteomyelitis for antibiotics. We will continue to monitor patient in the meantime. A.m. labs 05/24/24 patient was seen by nurse practitioner and physician. Patient underwent PermCath placement 05/23/2024 by IR. Patient was seen by telephone mechanic and they recommended CTA abdomen aorta with runoff. Patient is refusing. Dr. Merritt was notified by RN. Patient underwent dialysis yesterday 05/23/2024 and 3.1 L was removed after the catheter placed. Patient continues to refuse infectious disease doctor for antibiotic treatment/recommendations. Dr. Kincaid was consulted for amputation as requested by patient. We are pending further evaluation/recommendations. MRI ankle that was ordered yesterday was also refused and patient is still continues to refuse it. We will continue to monitor patient in the meantime. A.m. labs] REVIEW OF SYSTEMS CONSTITUTIONAL: reports that permacath was dislodged today NEUROLOGICAL: Denies headache, amaurosis fugax, motor weakness, sensory deficit, vertigo/spinning sensation, gait abnormalities, or tremors. ENT: No hearing loss, otalgia, otorrhea, rhinitis, rhinorrhea, hoarseness, or sore throat. CARDIOVASCULAR: Denies any exertional angina, dyspnea on exertion, orthopnea, paroxysmal nocturnal dyspnea, palpitations, life-threatening arrhythmias, claudication. PULMONARY: Denies any shortness of breath, cough, phlegm/sputum, hemoptysis, pleuritic chest pain. SLEEP: Denies morning headaches, daytime somnolence or napping. Denies difficulty falling asleep, staying asleep, waking from sleep. Denies knowledge of snoring. GASTROINTESTINAL: Denies any type of dysphagia to either liquids or solids. Denies nausea, vomiting, pyrosis, early satiety, abdominal pain, diarrhea, constipation, or changes in stool consistency or caliber. Denies coffee-ground emesis, hematemesis, hematochezia, or melanotic stools. GENITOURINARY: Denies frequency, urgency, nocturia, hematuria or incontinence (Storage/Irritative symptoms.) Low urinary stream, straining to void, urinary intermittency or hesitancy, splitting of the voiding stream, terminal dribbling. ENDOCRINOLOGIC: Denies polyuria, polydipsia, polyphagia or heat/cold intolerances. HEMATOLOGIC: Denies thrombophilia/previous clots, or coagulopathy/bleeding di sorders. ONCOLOGIC: Denies personal history of malignancy. DERMATOLOGIC: ulcer involving the right foot heel PSYCHIATRIC: Denies any suicidal or homicidal ideation. Denies hallucinations. PHYSICAL EXAM GENERAL APPEARANCE: The patient is awake, alert, and oriented, in no acute cardiopulmonary distress. NEUROLOGICAL: Cranial nerves II-XII grossly intact. Motor is 5/5 in bilateral upper and lower extremities proximal to distal. No sensory deficits. HEENT: Face is symmetric. Pupils are equal and reactive. Extraocular movements are intact. NECK: Supple. No JVD. No thyromegaly. No submental, submandibular, pre- /postauricular, occipital or supraclavicular lymphadenopathy. CHEST: Normal chest expansion. No Telemetry. LUNGS: Absence of any rales, rhonchi or any wheezing. CARDIOVASCULAR: Regular. S1 and S2 normal. No appreciable rubs, murmurs or gallops. ABDOMEN: Soft, nontender, and nondistended. There is no rebound, voluntary guarding, or rigidity. : Deferred. No Hutson. EXTREMITIES: Patient has heel has a large area of eschar with possible necrotic region SKIN: No skin breakdown. Vital Signs (last 8hr) Date Time Temp Pulse Resp B/P (MAP) Pulse Ox O2 Delivery O2 Flow Rate FiO2 05/24/24 11:53 98.8 87 20 159/86 96 Room Air 21 05/24/24 08:00 98.6 87 16 145/57 92 Room Air 21 LABS: Laboratory: Test 05/24/24 05:50 05/24/24 05:40 05/23/24 17:27 Range/Units White Blood Count 9.9 4.8-10.8 K/uL Red Blood Count 2.31 L 4.50-6.20 MIL/uL Hemoglobin 7.3 L 14.0-18.0 g/dL Hematocrit 22.5 L 42-54 % Mean Corpuscular Volume 97.4 79-99 fL Mean Corpuscular Hemoglobin 31.6 27.0-33.0 pg Mean Corpuscular Hemoglobin Concent 32.4 32.0-36.0 g/dL Red Cell Distribution Width 16.0 H 11.0-15.5 % Platelet Count 198 130-400 K/uL Mean Platelet Volume 10.3 7.5-10.5 fL Immature Granulocyte % (Auto) 0.5 0-1 % Neutrophils (%) (Auto) 79.2 H 40.0-77.0 % Lymphocytes (%) (Auto) 13.3 L 21.0-51.0 % Monocytes (%) (Auto) 5.8 3.0-13.0 % Eosinophils (%) (Auto) 0.9 0.0-8.0 % Basophils (%) (Auto) 0.3 0.0-5.0 % Neutrophils # (Auto) 7.8 H 1.8-7.7 K/uL Lymphocytes # (Auto) 1.3 1.0-4.8 K/uL Monocytes # (Auto) 0.6 0.1-1.0 K/uL Eosinophils # (Auto) 0.09 0.00-0.70 K/uL Basophils # (Auto) 0.03 0.00-0.20 K/uL Absolute Immature Granulocyte (auto 0.05 0-1 K/uL Nucleated Red Blood Cells 0.0 0.0-0.19 % Sodium Level 141 136-145 mmol/L Potassium Level 4.5 3.5-5.1 mmol/L Chloride Level 103 101-111 mmol/L Carbon Dioxide Level 30 21-32 mmol/L Blood Urea Nitrogen 44 H 7-18 mg/dL Creatinine 5.2 H 0.5-1.3 mg/dL Glomerular Filtration Rate Calc 12 >90 mL/min Random Glucose 158 H 70-105 mg/dL Total Calcium 7.3 L 8.5-10.1 mg/dL Magnesium Level 1.80 1.80-2.40 mg/dL Total Bilirubin 0.5 0.2-1.0 mg/dL Aspartate Amino Transf (AST/SGOT) 11 10-37 U/L Alanine Aminotransferase (ALT/SGPT) 12 12-78 U/L Alkaline Phosphatase 81 50-136 U/L Total Protein 5.8 L 6.0-8.3 g/dL Albumin 2.4 L 3.5-5.0 g/dL Whole Blood Glucose 146 H 70-110 MG/DL Hepatitis B Surface Antigen. Non-Reactive Nonreactive Hepatitis B Surface Antibody. Negative L Reactive Hepatitis B Core Total Antibody. Non-Reactive Nonreactive Hepatitis C Antibody Non-Reactive Nonreactive Current Medications Medications (Trade) Dose Ordered Sig/Idania Route PRN Reason Start Time Stop Time Status Last Admin Dose Admin Acetaminophen (TYLenol 325MG TAB) 650 mg Q6H PRN PO MILD PAIN (1-3) 05/22/24 10:30 06/21/24 10:29 Acetaminophen/ Hydrocodone Bitart (NORco 5/325MG) 1 tab Q8H PRN PO MODERATE PAIN (4-6) 05/22/24 23:00 05/27/24 22:59 05/22/24 22:51 1 TAB Aspirin (Aspirin 81mg Chew Tab) 81 mg DAILY PO 05/23/24 09:00 05/23/24 00:22 DC Aspirin (Aspirin 81mg Chew Tab) 81 mg DAILY PO 05/23/24 17:00 06/22/24 16:59 Atorvastatin Calcium (LIPItor 40MG) 40 mg HS PO 05/23/24 21:00 06/22/24 20:59 05/23/24 20:29 40 MG Cefepime HCl (MAXipime 1 GM vial) 1 gm Q24H IVPB 05/22/24 11:00 06/01/24 10:59 05/24/24 15:14 1 GM Clopidogrel Bisulfate (plaVIX 75MG) 75 mg DAILY PO 05/23/24 13:00 05/23/24 00:22 DC Clopidogrel Bisulfate (plaVIX 75MG) 75 mg DAILY PO 05/23/24 17:00 05/23/24 14:21 DC Clopidogrel Bisulfate (plaVIX 75MG) 75 mg DAILY PO 05/24/24 09:00 06/23/24 08:59 Heparin Sodium (Porcine) (HEParin 5,000 UNIT VIAL) 10,000 unit AD IRRIG 05/24/24 13:00 06/23/24 12:59 Hydralazine HCl (APRESOLine 20MG INJ) 5 mg Q6H PRN IV ADMINISTER FOR SBP > 160 05/22/24 12:30 06/21/24 12:29 05/22/24 21:19 5 MG Insulin Human Regular (humuLIN R 100 UNIT/ML 3ML) INSULIN SLIDING SCAL... ACHS SQ 05/22/24 11:30 06/21/24 11:29 05/22/24 12:11 3 UNIT Nifedipine (adALAT 30MG) 60 mg Q24H PO 05/22/24 11:00 05/22/24 19:16 DC Nifedipine (adALAT 30MG) 60 mg Q24H PO 05/22/24 19:30 06/21/24 19:29 05/23/24 20:30 60 MG Ondansetron HCl (zoFRAN 4MG INJ) 4 mg Q6H PRN IVP NAUSEA/VOMITING 05/22/24 10:30 06/21/24 10:29 Pantoprazole Sodium (PROTonix 40MG TAB) 40 mg DAILY PO 05/23/24 09:00 06/22/24 08:59 05/24/24 08:59 40 MG Pharmacy Profile Note (Pharmacy Communication) 1 each ONCE MISC 05/22/24 11:00 05/22/24 10:57 DC Prednisone (deltaSONE/ oraSONE 5MG) 5 mg BID PO 05/22/24 21:00 06/21/24 20:59 05/24/24 08:59 5 MG Vancomycin HCl (Vancomycin 750mg) 750 mg QMOWEFR[DIALYSIS] IVPB 05/26/24 16:00 06/05/24 15:59 Vancomycin HCl (Vancomycin Protocol) 1 each AD IV 05/22/24 11:00 06/05/24 10:59 Vitamin B Complex/ Vit C/Folic Acid (Nephrovite Tablet) 1 cap DAILY PO 05/23/24 09:00 06/22/24 08:59 05/24/24 08:59 1 CAP DIAGNOSTICS / RADIOLOGY: [ ] ASSESSMENT: Dislodged PermCath, POA s/p PermCath placement 05/23/2024 by IR History of ESRD on home hemodialysis therapy, POA osteomyelitis per foot x-ray 05/22/2024 Chronic leukocytosis, POA Underlying immunosuppression on outpatient treatment with steroids and Remicade, POA Nonhealing diabetic foot ulcer/heel ulcer with associated deep eschar/necrotic region, being followed by Dr. Jackson as outpatient, POA Anemia of renal disease, POA Underlying history of type 2 diabetes mellitus, POA History of chronic prednisone use as outpatient, POA Uncontrolled Hypertension, POA Hyperlipidemia, POA History of peripheral arterial disease, POA Prior history of angioplasty to right popliteal artery and distal SFA by Dr. Arzate on 01/24/2024, POA History penicillin allergy, POA Noncompliance PLAN: Admit to: Medical-surgical with telemetry Consults: Lining Stitcher, telephone mechanic, cytologist, surgeon, patient is refusing ID Antibiotics: Vancomycin, cefepime Tests: MRI ankle right foot which patient is refusing. CTA abdomen aorta with runoff patient is refusing as well NEURO: Minimize central acting medications as possible. Fall Precautions. Well lighted room through the day and minimize interruptions through the night to prevent acute delirium. PULMONARY: Supplemental 02 as needed BiPAP as necessary, for respiratory distress Titrate Fio2 to keep Spo2 > or = 90% DuoNebs and CPT as needed IS hourly while awake for pulmonary hygiene Out of bed to chair as tolerated VAP Bundle Maintain aspiration precautions at all times CARDIOVASCULAR: Follow hemodynamics. Vital signs per facility protocol Arterial ultrasound PVD GI & NUTRITION: Continue nutritional support Aspirations precautions Prokinetic agents and laxatives as needed KIDNEYS & ELECTROLYTES: PermCath placement 05/23/2024 ESRD dialysis Wednesday Strict monitoring of intake and output Daily weights Avoid nephrotoxic agents Monitor electrolytes and replace as needed Goal urine output of 30mL/hr or 0.5mL/kg/hr Medications to be dosed according to renal function. Avoid contrast if possible ENDOCRINE: Maintain blood glucose between 100-180 at all times. Insulin sliding scale for blood glucose management Hypoglycemia and hyperglycemia protocol in place INFECTIOUS DISEASE: Trend temperature, WBC and procalcitonin level Follow cultures, deescalate antibiotics as soon as possible. Panculture if new onset fever Vancomycin, cefepime ABX HEMATOLOGY & COAGULATION: Monitor H&H. Keep Hgb > 7 Transfuse 1 unit of PRBC for Hgb < 7 Transfuse 1 pack of platelets of platelets < 20, 000 Watch for any signs and symptoms of bleeding SKIN: Pressure ulcer prevention per facility protocol Specialty mattress as needed Treatment plan discussed with patient and family at the bedside Medications to be reconciled once obtained by patient and/or family and available to be reconciled in computer p.r.n. medication for pain nausea and vomiting Questions were answered We will continue to monitor the patient closely Transmission Tester for disposition Rehab: PT/OT GI: PPI DVT: SCD's Code Status: Full Resuscitation Disposition: TBD Prognosis: Guarded ATTESTATION BY PHYSICIAN I have seen and examined the patient. I reviewed the documentation, medical decision making, and treatment plan as noted by the mid-level provider above. I agree with the findings and plan of care. Jennifer Huang MD, KATARZYNA B MANAGEMENT ANALYST May 24, 2024 16:02
--- NOTE | 2024-05-24 17:47 | NUR ---
PARISA HOOD SHIPPING AND RECEIVING MATERIAL HANDLER NOTIFIED OF CTA TO BE DONE IN AM . RESCHEDULED DUE TO VERSED DOSE AND MONITORING ,PATIENT REQUIRING SEDATION PRIOR TO PROCEDURE BEING PERFORMED. PARISA MENCHACA WILL NOTIFY MD VIA TEXT. I MYSELF NOTIFIED MD OF RESCHEDULE FOR AM. AUTO BODY MECHANIC NOTIFIED AND PATIENT WILL BE GOING FIRST THING IN AM TO PROCEDURE.
--- NOTE | 2024-05-24 17:56 | NUR ---
PATIENT REQUESTING IF CTA CAN BE DONE IN AM ,WILL FOLLOW UP WITH MD.
[2024-05-24 20:00] VITALS: BP 156/69; PULSE 93; RESP 18; TEMP 98.4
--- NOTE | 2024-05-24 20:50 | CONS ---
CONSULTATION NOTE Date of Service: May 24, 2024 Reason for Consultation: ESRD management HISTORY OF PRESENT ILLNESS: A 59-year-old male with a past medical history of ESRD at home hemodialysis, diabetes mellitus type 2 with nephropathy, hypertension with renal manife station, anemia chronic kidney disease. Prior partial foot amputation Patient presented to the ER due to dislodgement of PermCath. Examined at bedside denies fever pain or chills. Consulted for management of hemodialysis and ESRD Plan for hemodialysis treatment tomorrow after radiology procedure, HD staff aware of plan. REVIEW OF SYSTEMS CONSTITUTIONAL: Denies fever, chills, or fatigue. HEAD/FACE: No signs of trauma. EENT: Denies eye pain, blurred vision, double vision, or light sensitivity. RESPIRATORY: Denies shortness of breath, cough, wheezing CARDIOVASCULAR: Denies chest pain, palpitation, syncope GASTROINTESTINAL/ABDOMINAL: Denies abdominal pain, constipation, diarrhea, nausea or vomiting GENITOURINARY: Denies dysuria or hematuria. MUSCULOSKELETAL: Denies joint pain, tenderness, or trauma. INTEGUMENTARY: Denies rash or itchiness NEUROLOGICAL/PSYCH: Denies anxiety, depression, heat or cold intolerance. PAST MEDICAL HISTORY: Refer to [facility] Coded Allergies: Penicillins (Unverified Allergy, Unknown, 01/14/24) Sulfa (Sulfonamide Antibiotics) (Unverified Allergy, Unknown, 01/14/24) PHYSICAL EXAM EYES: Anicteric. Pupils equal and reactive. HENT: No oral thrush seen, moist Oral mucosa NECK: Supple, no JVD or thyromegaly. LUNGS: Good air entry. No rales, no rhonchi. CARDIOVASCULAR: S1, S2 regular. No murmur heard. ABDOMEN: Soft, non tender, bowel sounds present, no organomegaly CENTRAL NERVOUS SYSTEM: Awake, alert, oriented x 3. No focal deficits. SKIN: No rashes, no swelling. LYMPHATICS: No peripheral lymphadenopathy MUSCULOSKELETAL: No joint swelling, erythema or tenderness. EXTREMITIES: No cyanosis or clubbing BACK: No deformity, no pressure ulcer. GENITOURINARY: No dysuria or hematuria Vital Sign (Last 24 Hours) 05/23/24 05/24/24 05/24/24 20:00 16:00 20:00 Temp 98.4 Pulse 93 Resp 18 B/P (MAP) 156/69 Pulse Ox 93 O2 Delivery Room Air O2 Flow Rate 0 FiO2 21 Intake & Output (last 24hrs) 05/23/24 05/23/24 05/24/24 15:00 23:00 07:00 Intake Total 0 ml 120 ml Output Total 3100 ml 250 ml Balance 0 ml -3100 ml -130 ml LABS: Laboratory: Test 05/24/24 20:39 05/24/24 16:45 05/24/24 05:50 05/23/24 17:27 Range/Units Whole Blood Glucose 199 H 70-110 MG/DL Bedside Glucose Comment Notified Nurse White Blood Count 9.9 4.8-10.8 K/uL Red Blood Count 2.31 L 4.50-6.20 MIL/uL Hemoglobin 7.3 L 14.0-18.0 g/dL Hematocrit 22.5 L 42-54 % Mean Corpuscular Volume 97.4 79-99 fL Mean Corpuscular Hemoglobin 31.6 27.0-33.0 pg Mean Corpuscular Hemoglobin Concent 32.4 32.0-36.0 g/dL Red Cell Distribution Width 16.0 H 11.0-15.5 % Platelet Count 198 130-400 K/uL Mean Platelet Volume 10.3 7.5-10.5 fL Immature Granulocyte % (Auto) 0.5 0-1 % Neutrophils (%) (Auto) 79.2 H 40.0-77.0 % Lymphocytes (%) (Auto) 13.3 L 21.0-51.0 % Monocytes (%) (Auto) 5.8 3.0-13.0 % Eosinophils (%) (Auto) 0.9 0.0-8.0 % Basophils (%) (Auto) 0.3 0.0-5.0 % Neutrophils # (Auto) 7.8 H 1.8-7.7 K/uL Lymphocytes # (Auto) 1.3 1.0-4.8 K/uL Monocytes # (Auto) 0.6 0.1-1.0 K/uL Eosinophils # (Auto) 0.09 0.00-0.70 K/uL Basophils # (Auto) 0.03 0.00-0.20 K/uL Absolute Immature Granulocyte (auto 0.05 0-1 K/uL Nucleated Red Blood Cells 0.0 0.0-0.19 % Sodium Level 141 136-145 mmol/L Potassium Level 4.5 3.5-5.1 mmol/L Chloride Level 103 101-111 mmol/L Carbon Dioxide Level 30 21-32 mmol/L Blood Urea Nitrogen 44 H 7-18 mg/dL Creatinine 5.2 H 0.5-1.3 mg/dL Glomerular Filtration Rate Calc 12 >90 mL/min Random Glucose 158 H 70-105 mg/dL Total Calcium 7.3 L 8.5-10.1 mg/dL Magnesium Level 1.80 1.80-2.40 mg/dL Total Bilirubin 0.5 0.2-1.0 mg/dL Aspartate Amino Transf (AST/SGOT) 11 10-37 U/L Alanine Aminotransferase (ALT/SGPT) 12 12-78 U/L Alkaline Phosphatase 81 50-136 U/L Total Protein 5.8 L 6.0-8.3 g/dL Albumin 2.4 L 3.5-5.0 g/dL Hepatitis B Surface Antigen. Non-Reactive Nonreactive Hepatitis B Surface Antibody. Negative L Reactive Hepatitis B Core Total Antibody. Non-Reactive Nonreactive Hepatitis C Antibody Non-Reactive Nonreactive DIAGNOSTICS / RADIOLOGY: AUTOMOTIVE SERVICE MANAGER PROCEDURE REQUEST REASON: DISLODGED PERMACATH. COMPARISON: None TECHNIQUE: Fluoroscopic guidance with placement of left internal jugular-right atrial tunneled Duramax dialysis catheter. FINDINGS: The right internal jugular vein is occluded at the junction with the superior vena cava and right subclavian vein. Left internal jugular vein is patent. PROCEDURE: Informed consent obtained the patient following explanation of risk, benefits, complications. Timeout performed by nursing staff. Continuous monitoring was performed of the patient during the procedure I nursing personnel including cardiovascular status, oxygenation, respiration. Patient received intravenous titrated doses of Versed and fentanyl during the procedure administered by nursing personnel. Right neck and left neck were prepped and draped in sterile fashion. Ultrasound of the right neck demonstrates large amount thrombus within the proximal internal jugular vein. Following local anesthesia with 1% lidocaine, access gained into the right internal jugular vein under direct ultrasound guidance. Guidewire could not be passed beyond the area of obstruction at the junction with the SVC. This site was abandoned and attention was made to the left internal jugular venous access site. Following local anesthesia with 1% lidocaine subcutaneous, needle access into the left internal jugular vein obtained with ultrasound guidance. Fine guidewire placement, microcatheter access was passed over the guidewire. J-wire was then passed through the sheath in past the right atrium into the inferior vena cava. Fashion dilatation performed, tunneled Duramax catheter 32 cm in length, was passed over guidewire and the tip of the catheter positioned within the right atrium. Both ports were flushed, aspirated, flushed, heparinized, capped, clamped. Catheter secured to the skin with retention suture and sterile dressing. Patient tolerated procedure well without evidence of comp occasions. Total fluoroscopic time: 3.7 minutes. Estimated blood loss: Less than 8 ml. IMPRESSION: Placement of 32 cm tunneled Duramax dialysis catheter with the tip positioned within the right atrium. Access from the left internal jugular vein. Catheter is ready for immediate use. ASSESSMENT: ESRD DM2 with nephropathy HTN with renal manifestation Hyperkalemia Anemia of CKD PLAN: HD plan for tomorrow, patient declined today pending radiology procedure prior to treatment Monitor Electrolytes Renal Diet CHEPE as per protocol with HD treatments Continue home medications LALITHA KOCH May 24, 2024 20:50
[2024-05-25] VITALS (18 sets, daily range): BP systolic 116–155; BP diastolic 52–97; PULSE 77–105; RESP 16–20; TEMP 97.7–98.7; O2SAT 98
[2024-05-25 06:05] LABS: BASOPHILS # (AUTO) 0.02 K/uL (0.00-0.20); BASOPHILS % (AUTO) 0.2 % (0.0-5.0); EOSINOPHILS # (AUTO) 0.04 K/uL (0.00-0.70); EOSINOPHILS % (AUTO) 0.3 % (0.0-8.0); HEMATOCRIT 22.3 % (42-54); IMMATURE GRANULOCYTE ABSOLUTE 0.08 K/uL (0-1); LYMPHOCYTES # (AUTO) 1.4 K/uL (1.0-4.8); LYMPHOCYTES % (AUTO) 11.7 % (21.0-51.0); MEAN CORPUSCULAR HEMOGLOBIN 31.1 pg (27.0-33.0); MEAN CORPUSCULAR HGB CONC 31.8 g/dL (32.0-36.0); MEAN CORPUSCULAR VOLUME 97.8 fL (79-99); MONOCYTES # (AUTO) 0.7 K/uL (0.1-1.0); MONOCYTES % (AUTO) 5.9 % (3.0-13.0); NEUTROPHILS # (AUTO) 9.5 K/uL (1.8-7.7); NEUTROPHILS % (AUTO) 81.2 % (40.0-77.0); PLATELET COUNT (AUTO) 191 K/uL (130-400); RED BLOOD CELL COUNT(AUTO) 2.28 MIL/uL (4.50-6.20); WHITE BLOOD COUNT (AUTO) 11.7 K/uL (4.8-10.8)
[2024-05-25 06:18] LABS: ALBUMIN 2.4 g/dL (3.5-5.0); BILIRUBIN,TOTAL 0.5 mg/dL (0.2-1.0); CREATININE 6.5 mg/dL (0.5-1.3); MAGNESIUM 1.9 mg/dL (1.80-2.40); POTASSIUM 4.7 mmol/L (3.5-5.1); TOTAL PROTEIN, SERUM 5.7 g/dL (6.0-8.3)
--- NOTE | 2024-05-25 07:05 | PN ---
SUBJECTIVE: The patient is a very pleasant 59-year-old diabetic, Latin-[place] male. White count 11.7, H and H 7.1 and 22.3, platelets of 191. The potassium is 4.7, albumin 2.4. The patient is being followed for ulcer, gangrene and osteomyelitis, posterior heel, posterior ankle on the right. Orthopedics has been consulted for evaluation for ceupd-[id number]-[id number] amputation on the right. The patient is scheduled for CT of his abdominal aorta with runoff today to evaluate his circulation status. He is currently receiving hemodialysis, he received his last treatment on 05/23/2024. He has been followed for gangrene and osteomyelitis to the right heel. He is refusing an MRI. He is currently receiving the IV vancomycin and the IV cefepime. REVIEW OF SYSTEMS: CONSTITUTIONAL: He is having pain to the right foot, right ankle. No chills, no fevers, no night sweats, no nausea, no vomiting, no diarrhea. HEENT: No problems with eyes, ears, nose or throat. CARDIOVASCULAR: He has a known peripheral vascular disease to that right lower extremity pending CTA of his abdominal aorta with runoff. GENITOURINARY: End-stage renal disease, currently receiving hemodialysis. GASTROINTESTINAL: No dysphagia. ENDOCRINE: Diabetes. PSYCHIATRIC: Denied any depression. 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 Right foot is warm, I could not palpate his pulses. He has a gangrenous necrosis with exposed bone of the calcaneus to the posterior heel, posterior ankle on the right, foul smelling wound with serous drainage. ASSESSMENT: Ulcer, cellulitis, osteomyelitis, gangrene, right heel; peripheral vascular disease; end-stage renal disease, receiving hemodialysis. Dr. Montes has been consulted for evaluation for dansh-ctk-[id number] amputation on the right. PLAN: Pending evaluation of his circulation with CT abdominal aorta with runoff, patient is receiving hemodialysis, patient receiving IV vancomycin and IV cefepime. We will await Dr. Montes's recommendation. I feel the patient would be best served with a minimal of [id number] amputation on the right side due to gangrene and osteomyelitis affecting the posterior heel, posterior ankle on the right. TID: [id number] RECEIPT: [id number]
--- NOTE | 2024-05-25 08:19 | PN ---
[facility] CARDIOLOGY PROGRESS NOTE Date Patient Seen: May 25, 2024 Time of Visit: 08:18 Problem List: RLE non healing wound, prior TMA Interval History: Pending CTA runoff study. This was not performed yesterday due to patient's repo rted claustrophobia. Physical Examination: GENERAL: [No acute distress.] HEAD: [Normal with no signs of head trauma.] EYES: [PERRLA, EOMI, conjunctiva and sclera normal.] ENT: [Hearing grossly intact, normal oropharynx.] NECK: [Supple without JVD. There is no tenderness, lymphadenopathy, or masses. No thyromegaly. Normal carotid upstrokes without bruits.] LUNGS: [Clear breath sounds bilaterally. There are right basilar rales one third of the way up the chest. No wheezes, or rhonchi.] HEART: [Normal rate and rhythm. Normal S1 and S2 without mumurs, gallop or rub.] VASC: [Peripheral pulses +2 bilaterally.] ABD: [Bowel sounds normal, soft, nontender, no masses, no organomegaly. No audible bruits.] : [Not examined] LYMPH: [No lymphadenopathy noted.] EXT: [No clubbing, cyanosis or edema.] SKIN: [No rashes or lesions noted.] NEURO: [Awake, alert, and oriented x3. No focal sensory or strength deficits noted.] Laboratory: [ ] Hematology Labs: Test 05/25/24 05:23 Range/Units White Blood Count 11.7 H 4.8-10.8 K/uL Red Blood Count 2.28 L 4.50-6.20 MIL/uL Hemoglobin 7.1 L 14.0-18.0 g/dL Hematocrit 22.3 L 42-54 % Mean Corpuscular Volume 97.8 79-99 fL Mean Corpuscular Hemoglobin 31.1 27.0-33.0 pg Mean Corpuscular Hemoglobin Concent 31.8 L 32.0-36.0 g/dL Red Cell Distribution Width 16.0 H 11.0-15.5 % Platelet Count 191 130-400 K/uL Mean Platelet Volume 11.2 H 7.5-10.5 fL Immature Granulocyte % (Auto) 0.7 0-1 % Neutrophils (%) (Auto) 81.2 H 40.0-77.0 % Lymphocytes (%) (Auto) 11.7 L 21.0-51.0 % Monocytes (%) (Auto) 5.9 3.0-13.0 % Eosinophils (%) (Auto) 0.3 0.0-8.0 % Basophils (%) (Auto) 0.2 0.0-5.0 % Neutrophils # (Auto) 9.5 H 1.8-7.7 K/uL Lymphocytes # (Auto) 1.4 1.0-4.8 K/uL Monocytes # (Auto) 0.7 0.1-1.0 K/uL Eosinophils # (Auto) 0.04 0.00-0.70 K/uL Basophils # (Auto) 0.02 0.00-0.20 K/uL Absolute Immature Granulocyte (auto 0.08 0-1 K/uL Nucleated Red Blood Cells 0.0 0.0-0.19 % Chemistry Labs: Test 05/25/24 05:54 05/25/24 05:23 05/24/24 16:45 Range/Units Whole Blood Glucose 247 H 70-110 MG/DL Sodium Level 142 136-145 mmol/L Potassium Level 4.7 3.5-5.1 mmol/L Chloride Level 104 101-111 mmol/L Carbon Dioxide Level 29 21-32 mmol/L Blood Urea Nitrogen 55 H 7-18 mg/dL Creatinine 6.5 H 0.5-1.3 mg/dL Glomerular Filtration Rate Calc 9 >90 mL/min Random Glucose 272 #H 70-105 mg/dL Total Calcium 7.3 L 8.5-10.1 mg/dL Magnesium Level 1.90 1.80-2.40 mg/dL Total Bilirubin 0.5 0.2-1.0 mg/dL Aspartate Amino Transf (AST/SGOT) 9 L 10-37 U/L Alanine Aminotransferase (ALT/SGPT) 11 L 12-78 U/L Alkaline Phosphatase 89 50-136 U/L Total Protein 5.7 L 6.0-8.3 g/dL Albumin 2.4 L 3.5-5.0 g/dL Bedside Glucose Comment Notified Nurse Impression and Plan: PAD Chronic non-healing right heel wound, XR revealing possible osteomyelitis at TMA site. 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 Further recommendations to follow the results of the study. MELISSA MCGILL DO May 25, 2024 08:19
[2024-05-25] MEDS ORDERED: IOHEXOL-350 75 ML VIAL IV ONE (11:47)
[2024-05-25] MEDS ORDERED: IOHEXOL 350 MG/ML 100ML INFUS..BTL IV ONE (11:52)
[2024-05-25] MEDS ORDERED: IOHEXOL-350 50ML VIAL IV ONE (11:52)
[2024-05-25] MEDS: MIDAZOLAM HCL 1 MG/ML 2ML VIAL ONE (12:26)
--- NOTE | 2024-05-25 14:42 | HMCIMG ---
Exam Type: CT angiogram abdomen and pelvis and lower extremities run-off with contrast Exam Type: CT ANGIO ABD AORTA W RUNOFF Clinical Information: EVALUATE PAD Comparison: None Technique: Routine helical scanning at 5mm collimation through the abdomen and pelvis after contrast administration. In addition, sagittal and coronary formations of the abdomen pelvis and surface rendering three-dimensional reconstructions of the abdominal aorta and the bilateral lower extremity arterial system were performed. Findings: The vascular examination is abnormal. There is atheromatous disease of the common iliac arteries, the distal abdominal aorta, the superficial femoral arteries, popliteal arteries. All are patent and so are the trifurcations bilaterally. Segmental occlusions of the anterior tibial artery seen bilaterally, both occluded at or above the ankle level. Interosseous arteries are occluded above the ankle level and the runoff is provided by severely limited posterior tibial arteries bilaterally. There is no aortic aneurysm. There is no occlusion. There is no dissection. There is no extravasation to suggest laceration or rupture. No evidence of nephro or ureterolithiasis is found. No hydronephrosis or ureteral dilatation is seen. The visualized portion of the stomach is unremarkable. It shows no wall thickening. No gross ulceration is seen. It is not overly distended. There are no surrounding inflammatory changes. No wall lesions are identified to suggest cancer. The visualized portion of the spleen is unremarkable. It is not enlarged. The pancreas shows normal anatomy. It is not fatty replaced. It shows no lesions. The pancreatic duct is not dilated. The gallbladder is unremarkable. It shows no cholelithiasis. The gallbladder wall is normal in thickness. There is no pericholecystic fluid. The is no acute or chronic inflammation noted. The adrenal glands are unremarkable. There is no enlargement. No lesions are noted. The visualized portion of the liver is unremarkable. It shows no focal masses. The appendix is unremarkable. It shows no evidence of inflammation. No appendicolith is seen. The small bowel is unremarkable. There is no evidence of dilatation to suggest obstruction. No evidence of adynamic ileus is seen. There is no small bowel wall thickening to suggest enteritis. The colon is unremarkable. The urinary bladder is unremarkable. There is no wall thickening to suggest tumor or inflammation. There are no intraluminal calculi. There are no diverticula. There is no evidence of chronic bladder outlet obstruction. There is no evidence of urinary bladder distention to suggest urinary retention. The other pelvic structures are unremarkable. The bony and vascular structures are unremarkable for the patient's age. IMPRESSION: The vascular examination is abnormal. There is atheromatous disease of the common iliac arteries, the distal abdominal aorta, the superficial femoral arteries, popliteal arteries. All are patent and so are the trifurcations bilaterally. Segmental occlusions of the anterior tibial artery seen bilaterally, both occluded at or above the ankle level. Interosseous arteries are occluded above the ankle level and the runoff is provided by severely limited posterior tibial arteries bilaterally. This study was performed using dose reduction techniques to include automated exposure control and/or adjustment of the mA and/or kV according to patient size.
--- NOTE | 2024-05-25 14:46 | PN ---
[facility] PROGRESS NOTE Date of Service: May 25, 2024 Time of Service: 14:[address] Huang SUBJECTIVE: [ 05/22/23 59-year-old male with underlying history of hypertension, hyperlipidemia, peripheral arterial disease, type 2 diabetes mellitus, ESRD on chronic home hemodialysis of Wednesday, Wednesday, Wednesday, history of chronic diabetic foot ulcer of the right heel being followed by Podiatry as outpatient, psoriasis on chronic outpatient steroids and Remicade infusion who presented to the ER after his PermCath for hemodialysis was dislodged. Dislodgement happened on Wednesday and patient decided to come to the ER today for further evaluation. Patient states that similar episode has happened about six months ago and patient had PermCath placed by IR. Patient denies any fevers or chills. Reports that he is due for home hemodialysis today. He has a history of chronic diabetic foot/ heel ulcer being followed by Dr. Jackson as outpatient. He was seen by Dr. Jackson recently and has been taking oral outpatient antibiotics with doxycycline. He is supposed to see Dr. Mata with Infectious Disease on 05/26/2024 given persistent nonresolving infection. Patient was hospitalized in [facility] on 12/2023 after he was found to have cellulitis involving the TMA site of the right foot along with heel ulcer. Patient was found to have polymicrobial infection with Enterococcus faecalis, Pseudomonas aeruginosa and Bacteroides. He underwent debridement and wound VAC placement and was eventually discharged to [facility]. Patient was also seen by Cardiology and underwent peripheral angiogram with findings of severe right lower extremity PAD and patient underwent angioplasty of the right popliteal and distal SFA by Dr. Arzate. He was supposed to be on dual antiplatelet therapy with aspirin and Plavix but patient states that he has not taken either aspirin or Plavix after discharge from [facility]. On presentation to the hospital, patient was noted to be afebrile and hemodynamically stable. EKG showed normal sinus rhythm. chest x-ray showed no pulmonary edema. [place] [address], hemoglobin of 8.2, platelet count of 250,000. Patient initially stated that he did not want to be admitted and wanted IR to change catheter and be discharged home. But after further discussion, he is agreeable to be admitted for further evaluation by Dr. Jackson with regards to nonhealing ulcer/eschar of the right foot. we will rule out any active cellulitis and patient will be started on broad-spectrum antibiotics. Blood cultures will be obtained. Consultation with IR will be obtained as well for placement of PermCath. We will see how patient progresses. Patient has significant PAD, patient may need Cardiology evaluation as well as he has been off dual antiplatelet therapy for several months now. 05/23/23 patient was seen by nurse practitioner and physician during rounding in room 419. at the bedside. Per RN patient has been refusing labs that were ordered for PermCath placement. Patient has no access for dialysis at this moment. Patient was evaluated by Dr. Jackson and that is recommending Betadine dressing. Also cardiology recommendation is still pending. Podiatry order MRI ankle right foot but unfortunately patient is refusing scan as well. Patient stated that he came to [facility] only to get PermCath placement and he is leaving. He threatened that if he will not get PermCath by 2:00 p.m. he will leave AMA. Patient is refusing Cardiology consultation to evaluate arteries and is also refusing ID consultation for possible osteomyelitis for antibiotics. We will continue to monitor patient in the meantime. A.m. labs 05/24/24 patient was seen by nurse practitioner and physician. Patient underwent PermCath placement 05/23/2024 by IR. Patient was seen by landman and they recommended CTA abdomen aorta with runoff. Patient is refusing. Dr. Merritt was notified by RN. Patient underwent dialysis yesterday 05/23/2024 and 3.1 L was removed after the catheter placed. Patient continues to refuse infectious disease doctor for antibiotic treatment/recommendations. Dr. Kincaid was consulted for amputation as requested by patient. We are pending further evaluation/recommendations. MRI ankle that was ordered yesterday was also refused and patient is still continues to refuse it. We will continue to monitor patient in the meantime. A.m. labs 05/25/24 patient was seen by nurse practitioner and physician during rounding in room 419 sitting in the bed. Patient was evaluated by Dr. Jackson and at this moment patient is pending evaluation of his circulation with a CTA abdominal aorta with a runoff. The exam was already taken just pending results at this moment. Patient is receiving hemodialysis as scheduled by construction equipment mechanic helper . Patient continues to receive IV antibiotics vancomycin and cefepime. Per Dr. Horne's recommendation patient will be best served with a minimal of below the knee amputation on the right side due to gangrene and osteomyelitis affecting the posterior heel, posterior ankle on the right. Patient was also seen by the urologist and further recommendations are pending once CT runoff study of the peripheral arterial vasculature will be performed. Today WBC is 11.7 H&H stable. As per community service specialist surgeon Dr. Montes, further recommendations based on lab and radiology results. We will continue to monitor patient in the meantime. A.m. labs] REVIEW OF SYSTEMS CONSTITUTIONAL: reports that permacath was dislodged today NEUROLOGICAL: Denies headache, amaurosis fugax, motor weakness, sensory deficit, vertigo/spinning sensation, gait abnormalities, or tremors. ENT: No hearing loss, otalgia, otorrhea, rhinitis, rhinorrhea, hoarseness, or sore throat. CARDIOVASCULAR: Denies any exertional angina, dyspnea on exertion, orthopnea, paroxysmal nocturnal dyspnea, palpitations, life-threatening arrhythmias, claudication. PULMONARY: Denies any shortness of breath, cough, phlegm/sputum, hemoptysis, pleuritic chest pain. SLEEP: Denies morning headaches, daytime somnolence or napping. Denies difficulty falling asleep, staying asleep, waking from sleep. Denies knowledge of snoring. GASTROINTESTINAL: Denies any type of dysphagia to either liquids or solids. Denies nausea, vomiting, pyrosis, early satiety, abdominal pain, diarrhea, constipation, or changes in stool consistency or caliber. Denies coffee-ground emesis, hematemesis, hematochezia, or melanotic stools. GENITOURINARY: Denies frequency, urgency, nocturia, hematuria or incontinence (Storage/Irritative symptoms.) Low urinary stream, straining to void, urinary intermittency or hesitancy, splitting of the voiding stream, terminal dribbling. ENDOCRINOLOGIC: Denies polyuria, polydipsia, polyphagia or heat/cold intolerances. HEMATOLOGIC: Denies thrombophilia/previous clots, or coagulopathy/bleeding disorders. ONCOLOGIC: Denies personal history of malignancy. DERMATOLOGIC: ulcer involving the right foot heel PSYCHIATRIC: Denies any suicidal or homicidal ideation. Denies hallucinations. PHYSICAL EXAM GENERAL APPEARANCE: The patient is awake, alert, and oriented, in no acute cardiopulmonary distress. NEUROLOGICAL: Cranial nerves II-XII grossly intact. Motor is 5/5 in bilateral upper and lower extremities proximal to distal. No sensory deficits. HEENT: Face is symmetric. Pupils are equal and reactive. Extraocular movements are intact. NECK: Supple. No JVD. No thyromegaly. No submental, submandibular, pre-/postauricular, occipital or supraclavicular lymphadenopathy. CHEST: Normal chest expansion. No Telemetry. LUNGS: Absence of any rales, rhonchi or any wheezing. CARDIOVASCULAR: Regular. S1 and S2 normal. No appreciable rubs, murmurs or gallops. ABDOMEN: Soft, nontender, and nondistended. There is no rebound, voluntary guarding, or rigidity. : Deferred. No Hutson. EXTREMITIES: Patient has heel has a large area of eschar with possible necrotic region SKIN: No skin breakdown. Vital Signs (last 8hr) Date Time Temp Pulse Resp B/P (MAP) Pulse Ox O2 Delivery O2 Flow Rate FiO2 05/25/24 12:00 98.1 91 20 140/59 94 Room Air 21 05/25/24 08:00 98.8 98 18 122/57 98 Room Air 21 LABS: Laboratory: Test 05/25/24 05:54 05/25/24 05:23 05/24/24 16:45 05/23/24 17:27 Range/Units Whole Blood Glucose 247 H 70-110 MG/DL White Blood Count 11.7 H 4.8-10.8 K/uL Red Blood Count 2.28 L 4.50-6.20 MIL/uL Hemoglobin 7.1 L 14.0-18.0 g/dL Hematocrit 22.3 L 42-54 % Mean Corpuscular Volume 97.8 79-99 fL Mean Corpuscular Hemoglobin 31.1 27.0-33.0 pg Mean Corpuscular Hemoglobin Concent 31.8 L 32.0-36.0 g/dL Red Cell Distribution Width 16.0 H 11.0-15.5 % Platelet Count 191 130-400 K/uL Mean Platelet Volume 11.2 H 7.5-10.5 fL Immature Granulocyte % (Auto) 0.7 0-1 % Neutrophils (%) (Auto) 81.2 H 40.0-77.0 % Lymphocytes (%) (Auto) 11.7 L 21.0-51.0 % Monocytes (%) (Auto) 5.9 3.0-13.0 % Eosinophils (%) (Auto) 0.3 0.0-8.0 % Basophils (%) (Auto) 0.2 0.0-5.0 % Neutrophils # (Auto) 9.5 H 1.8-7.7 K/uL Lymphocytes # (Auto) 1.4 1.0-4.8 K/uL Monocytes # (Auto) 0.7 0.1-1.0 K/uL Eosinophils # (Auto) 0.04 0.00-0.70 K/uL Basophils # (Auto) 0.02 0.00-0.20 K/uL Absolute Immature Granulocyte (auto 0.08 0-1 K/uL Nucleated Red Blood Cells 0.0 0.0-0.19 % Sodium Level 142 136-145 mmol/L Potassium Level 4.7 3.5-5.1 mmol/L Chloride Level 104 101-111 mmol/L Carbon Dioxide Level 29 21-32 mmol/L Blood Urea Nitrogen 55 H 7-18 mg/dL Creatinine 6.5 H 0.5-1.3 mg/dL Glomerular Filtration Rate Calc 9 >90 mL/min Random Glucose 272 #H 70-105 mg/dL Total Calcium 7.3 L 8.5-10.1 mg/dL Magnesium Level 1.90 1.80-2.40 mg/dL Total Bilirubin 0.5 0.2-1.0 mg/dL Aspartate Amino Transf (AST/SGOT) 9 L 10-37 U/L Alanine Aminotransferase (ALT/SGPT) 11 L 12-78 U/L Alkaline Phosphatase 89 50-136 U/L Total Protein 5.7 L 6.0-8.3 g/dL Albumin 2.4 L 3.5-5.0 g/dL Bedside Glucose Comment Notified Nurse Hepatitis B Surface Antigen. Non-Reactive Nonreactive Hepatitis B Surface Antibody. Negative L Reactive Hepatitis B Core Total Antibody. Non-Reactive Nonreactive Hepatitis C Antibody Non-Reactive Nonreactive Current Medications Medications (Trade) Dose Ordered Sig/Idania Route PRN Reason Start Time Stop Time Status Last Admin Dose Admin Acetaminophen (TYLenol 325MG TAB) 650 mg Q6H PRN PO MILD PAIN (1-3) 05/22/24 10:30 06/21/24 10:29 Acetaminophen/ Hydrocodone Bitart (NORco 5/325MG) 1 tab Q8H PRN PO MODERATE PAIN (4-6) 05/22/24 23:00 05/27/24 22:59 05/22/24 22:51 1 TAB Aspirin (Aspirin 81mg Chew Tab) 81 mg DAILY PO 05/23/24 09:00 05/23/24 00:22 DC Aspirin (Aspirin 81mg Chew Tab) 81 mg DAILY PO 05/23/24 17:00 06/22/24 16:59 05/25/24 10:19 81 MG Atorvastatin Calcium (LIPItor 40MG) 40 mg HS PO 05/23/24 21:00 06/22/24 20:59 05/24/24 20:51 40 MG Cefepime HCl (MAXipime 1 GM vial) 1 gm Q24H IVPB 05/22/24 11:00 06/01/24 10:59 05/25/24 10:19 1 GM Clopidogrel Bisulfate (plaVIX 75MG) 75 mg DAILY PO 05/23/24 13:00 05/23/24 00:22 DC Clopidogrel Bisulfate (plaVIX 75MG) 75 mg DAILY PO 05/23/24 17:00 05/23/24 14:21 DC Clopidogrel Bisulfate (plaVIX 75MG) 75 mg DAILY PO 05/24/24 09:00 06/23/24 08:59 05/25/24 10:19 75 MG Heparin Sodium (Porcine) (HEParin 5,000 UNIT VIAL) 10,000 unit AD IRRIG 05/24/24 13:00 06/23/24 12:59 Hydralazine HCl (APRESOLine 20MG INJ) 5 mg Q6H PRN IV ADMINISTER FOR SBP > 160 05/22/24 12:30 06/21/24 12:29 05/22/24 21:19 5 MG Insulin Human Regular (humuLIN R 100 UNIT/ML 3ML) INSULIN SLIDING SCAL... ACHS SQ 05/22/24 11:30 06/21/24 11:29 05/25/24 06:50 4 UNIT Nifedipine (adALAT 30MG) 60 mg Q24H PO 05/22/24 11:00 05/22/24 19:16 DC Nifedipine (adALAT 30MG) 60 mg Q24H PO 05/22/24 19:30 06/21/24 19:29 2/5/25 20:51 60 MG Ondansetron HCl (zoFRAN 4MG INJ) 4 mg Q6H PRN IVP NAUSEA/VOMITING 05/22/24 10:30 06/21/24 10:29 Pantoprazole Sodium (PROTonix 40MG TAB) 40 mg DAILY PO 05/23/24 09:00 06/22/24 08:59 05/25/24 10:19 40 MG Pharmacy Profile Note (Pharmacy Communication) 1 each ONCE MISC 05/22/24 11:00 05/22/24 10:57 DC Prednisone (deltaSONE/ oraSONE 5MG) 5 mg BID PO 05/22/24 21:00 06/21/24 20:59 05/25/24 10:19 5 MG Vancomycin HCl (Vancomycin 750mg) 750 mg QMOWEFR[DIALYSIS] IVPB 05/26/24 16:00 06/05/24 15:59 Vancomycin HCl (Vancomycin Protocol) 1 each AD IV 05/22/24 11:00 06/05/24 10:59 Vitamin B Complex/ Vit C/Folic Acid (Nephrovite Tablet) 1 cap DAILY PO 05/23/24 09:00 06/22/24 08:59 05/25/24 10:19 1 CAP DIAGNOSTICS / RADIOLOGY: [ ] ASSESSMENT: Dislodged PermCath, POA s/p PermCath placement 05/23/2024 by IR History of ESRD on home hemodialysis therapy, POA osteomyelitis per foot x-ray 05/22/2024 Chronic leukocytosis, POA Underlying immunosuppression on outpatient treatment with steroids and Remicade, POA Nonhealing diabetic foot ulcer/heel ulcer with associated deep eschar/necrotic region, being followed by Dr. Jackson as outpatient, POA Anemia of renal disease, POA Underlying history of type 2 diabetes mellitus, POA History of chronic prednisone use as outpatient, POA Uncontrolled Hypertension, POA Hyperlipidemia, POA History of peripheral arterial disease, POA Prior history of angioplasty to right popliteal artery and distal SFA by Dr. Arzate on 01/24/2024, POA History penicillin allergy, POA Noncompliance PLAN: Admit to: Medical-surgical with telemetry Consults: Maintenance Engineer [employer], landman, construction equipment mechanic helper, surgeon, patient is refusing ID Antibiotics: Vancomycin, cefepime Tests: MRI ankle right foot which patient is refusing. CTA abdomen aorta with runoff patient pndinsg. TCOM pending NEURO: Minimize central acting medications as possible. Fall Precautions. Well lighted room through the day and minimize interruptions through the night to prevent acute delirium. PULMONARY: Supplemental 02 as needed BiPAP as necessary, for respiratory distress Titrate Fio2 to keep Spo2 > or = 90% DuoNebs and CPT as needed IS hourly while awake for pulmonary hygiene Out of bed to chair as tolerated VAP Bundle Maintain aspiration precautions at all times CARDIOVASCULAR: Follow hemodynamics. Vital signs per facility protocol Arterial ultrasound PVD GI & NUTRITION: Continue nutritional support Aspirations precautions Prokinetic agents and laxatives as needed KIDNEYS & ELECTROLYTES: PermCath placement 05/23/2024 ESRD dialysis Wednesday Strict monitoring of intake and output Daily weights Avoid nephrotoxic agents Monitor electrolytes and replace as needed Goal urine output of 30mL/hr or 0.5mL/kg/hr Medications to be dosed according to renal function. Avoid contrast if possible ENDOCRINE: Maintain blood glucose between 100-180 at all times. Insulin sliding scale for blood glucose management Hypoglycemia and hyperglycemia protocol in place INFECTIOUS DISEASE: Trend temperature, WBC and procalcitonin level Follow cultures, deescalate antibiotics as soon as possible. Panculture if new onset fever Vancomycin, cefepime ABX HEMATOLOGY & COAGULATION: Monitor H&H. Keep Hgb > 7 Transfuse 1 unit of PRBC for Hgb < 7 Transfuse 1 pack of platelets of platelets < 20, 000 Watch for any signs and symptoms of bleeding SKIN: Pressure ulcer prevention per facility protocol Specialty mattress as needed Treatment plan discussed with patient and family at the bedside Medications to be reconciled once obtained by patient and/or family and available to be reconciled in computer p.r.n. medication for pain nausea and vomiting Questions were answered We will continue to monitor the patient closely Manager Therapy for disposition Rehab: PT/OT GI: PPI DVT: SCD's Code Status: Full Resuscitation Disposition: TBD Prognosis: Guarded ATTESTATION BY PHYSICIAN I have seen and examined the patient. I reviewed the documentation, medical decision making, and treatment plan as noted by the mid-level provider above. I agree with the findings and plan of care. Jennifer Huang MD, KATARZYNA B WINTERIZER May 25, 2024 14:46
[2024-05-26] VITALS (8 sets, daily range): BP systolic 112–159; BP diastolic 61–75; PULSE 61–96; RESP 16–19; TEMP 98.1–99.9; O2SAT 93
[2024-05-26 04:58] LABS: BASOPHILS # (AUTO) 0.03 K/uL (0.00-0.20); BASOPHILS % (AUTO) 0.3 % (0.0-5.0); EOSINOPHILS # (AUTO) 0.12 K/uL (0.00-0.70); HEMATOCRIT 22.6 % (42-54); IMMATURE GRANULOCYTE ABSOLUTE 0.06 K/uL (0-1); LYMPHOCYTES # (AUTO) 1.5 K/uL (1.0-4.8); LYMPHOCYTES % (AUTO) 13.2 % (21.0-51.0); MEAN CORPUSCULAR HEMOGLOBIN 30.2 pg (27.0-33.0); MEAN CORPUSCULAR HGB CONC 31.4 g/dL (32.0-36.0); MEAN CORPUSCULAR VOLUME 96.2 fL (79-99); MONOCYTES # (AUTO) 0.8 K/uL (0.1-1.0); MONOCYTES % (AUTO) 6.9 % (3.0-13.0); NEUTROPHILS % (AUTO) 78.1 % (40.0-77.0); PLATELET COUNT (AUTO) 190 K/uL (130-400); RED BLOOD CELL COUNT(AUTO) 2.35 MIL/uL (4.50-6.20); RED CELL DISTRIBUTION WIDTH 15.8 % (11.0-15.5); WHITE BLOOD COUNT (AUTO) 11.5 K/uL (4.8-10.8)
[2024-05-26 05:12] LABS: ALBUMIN 2.3 g/dL (3.5-5.0); BILIRUBIN,TOTAL 0.5 mg/dL (0.2-1.0); MAGNESIUM 1.8 mg/dL (1.80-2.40); POTASSIUM 4.4 mmol/L (3.5-5.1)
--- NOTE | 2024-05-26 08:04 | PN ---
SUBJECTIVE: The patient is a very pleasant 59-year-old diabetic, Latin-[place]vian male with an ischemic necrotic ulceration, posterior aspect of the right heel. MRI evaluation in the past has shown osteomyelitis to the calcaneus. Clinically, he has exposed bone of the calcaneus and a large fibronecrotic foul smelling ulcer that is 8 x 8 cm. The patient had CT angiography of the abdominal aorta with runoff on that right side showed occlusive disease at the level of the ankle involving both the anterior tibial and posterior tibial artery on that right side. The patient is pending evaluation for [id number] amputation by Dr. Montes, the orthopedic surgeon. His white count is 11.5, H and H 7.1 and 22.6. He continues to be receiving the IV vancomycin and the IV cefepime. The patient is currently receiving heparin, Plavix and aspirin. He has end-stage renal disease, currently receiving hemodialysis. REVIEW OF SYSTEMS: CONSTITUTIONAL: No chills, no fevers, no night sweats, no nausea, vomiting, no diarrhea. HEENT: No problems with his eyes, ears, nose or throat. CARDIOVASCULAR: He has known peripheral vascular disease. CTA of his abdominal aorta with runoff showed severe occlusion at the level of the ankle on the right, both the anterior tibial and posterior tibial artery with minimal flow to the right foot. GENITOURINARY: End-stage renal disease, currently receiving hemodialysis. GASTROINTESTINAL: No dysphagia. ENDOCRINE: Diabetes. PSYCHIATRIC: Denied any depression. MUSCULOSKELETAL: The patient has a Chopart level of amputation on the right. INTEGUMENT: He has a fibronecrotic ulcer 8 x 8 cm foul smell exposed bone of the calcaneus in the wound bed on the right. ASSESSMENT: Infected necrotic posterior heel, posterior ankle ulcer, chronic osteomyelitis, polymicrobial wound infection, Staph aureus MRSA and pseudomonas aeruginosa for which the patient is currently receiving the IV vancomycin and the IV cefepime. PLAN: We are awaiting Dr. Montes's evaluation for [id number] amputation on the right. Continue Betadine dressings. Continue with broad-spectrum antibiotics. Continue to follow the patient closely while in-house. TID: [id number] RECEIPT: [id number]
--- NOTE | 2024-05-26 09:18 | PN ---
[facility] CARDIOLOGY PROGRESS NOTE Date Patient Seen: May 26, 2024 Time of Visit: 09:15 Problem List: RLE non healing wound, prior TMA Interval History: s/p CTA runoff. Physical Examination: GENERAL: [No acute distress.] HEAD: [Normal with no signs of head trauma.] LUNGS: [Clear breath sounds bilaterally. HEART: [Normal rate and rhythm. VASC: [Peripheral pulses +2 bilateral radial. Right heel dry necrosis. EXT: [No edema.] SKIN: [necrosis right heel. NEURO: [Awake, alert, and oriented x3. Laboratory: [ ] Hematology Labs: Test 05/26/24 04:25 Range/Units White Blood Count 11.5 H 4.8-10.8 K/uL Red Blood Count 2.35 L 4.50-6.20 MIL/uL Hemoglobin 7.1 L 14.0-18.0 g/dL Hematocrit 22.6 L 42-54 % Mean Corpuscular Volume 96.2 79-99 fL Mean Corpuscular Hemoglobin 30.2 27.0-33.0 pg Mean Corpuscular Hemoglobin Concent 31.4 L 32.0-36.0 g/dL Red Cell Distribution Width 15.8 H 11.0-15.5 % Platelet Count 190 130-400 K/uL Mean Platelet Volume 10.9 H 7.5-10.5 fL Immature Granulocyte % (Auto) 0.5 0-1 % Neutrophils (%) (Auto) 78.1 H 40.0-77.0 % Lymphocytes (%) (Auto) 13.2 L 21.0-51.0 % Monocytes (%) (Auto) 6.9 3.0-13.0 % Eosinophils (%) (Auto) 1.0 0.0-8.0 % Basophils (%) (Auto) 0.3 0.0-5.0 % Neutrophils # (Auto) 9.0 H 1.8-7.7 K/uL Lymphocytes # (Auto) 1.5 1.0-4.8 K/uL Monocytes # (Auto) 0.8 0.1-1.0 K/uL Eosinophils # (Auto) 0.12 0.00-0.70 K/uL Basophils # (Auto) 0.03 0.00-0.20 K/uL Absolute Immature Granulocyte (auto 0.06 0-1 K/uL Nucleated Red Blood Cells 0.0 0.0-0.19 % Chemistry Labs: Test 05/26/24 05:29 05/26/24 04:25 05/25/24 16:20 Range/Units Whole Blood Glucose 256 H 70-110 MG/DL Sodium Level 140 136-145 mmol/L Potassium Level 4.4 3.5-5.1 mmol/L Chloride Level 102 101-111 mmol/L Carbon Dioxide Level 30 21-32 mmol/L Blood Urea Nitrogen 39 H 7-18 mg/dL Creatinine 5.0 H 0.5-1.3 mg/dL Glomerular Filtration Rate Calc 12 >90 mL/min Random Glucose 241 H 70-105 mg/dL Total Calcium 7.3 L 8.5-10.1 mg/dL Magnesium Level 1.80 1.80-2.40 mg/dL Total Bilirubin 0.5 0.2-1.0 mg/dL Aspartate Amino Transf (AST/SGOT) 8 L 10-37 U/L Alanine Aminotransferase (ALT/SGPT) 7 L 12-78 U/L Alkaline Phosphatase 96 50-136 U/L Total Protein 6.0 6.0-8.3 g/dL Albumin 2.3 L 3.5-5.0 g/dL Bedside Glucose Comment Notified Nurse Impression and Plan: PAD Chronic non-healing right heel wound, XR revealing possible osteomyelitis at TMA site. S/p successful IVUS guided, IVL (Shockwave 4x60m), and STAFF PHYSICIAN/DCB of the RIGHT popliteal (4x80mm DCB) and distal SFA (5x40mm DCB) with alevism of brink 3v runoff on 01/23/2025 -- noncompliance with DAPT post PVI Wound culture positive for Enterococcus faecalis and pseudomonas aeruginosa in 01/2024 with abx treatment at [facility] x 3 wks HTN DM type II ESRD on home HD [facility] Anemia of chronic disease Psoriasis on immunosuppressants Probable nonobstructive CAD with CT coronary calcium score of 87 in 06/2021 CTA runoff reveals patent vasculature at prior site of PVI however with infrapopliteal disease, with evidence of occluded AT and peroneal, possible severe disease of the STAFF PHYSICIAN. Due to presence of necrosis at the heel, I am recommending we proceed with invasive angiography with possible PVI to ascertain if any improvement in flow can be restored. There is documentation that the patient may go for BKA. If orthopedics/podiatry feels that adequate healing cannot be made at the current necrotic site, the vasculature is patent to the level of the trifurcation such that a BKA should heal well. MELISSA MCGILL DO May 26, 2024 09:18
--- NOTE | 2024-05-26 11:33 | NUR ---
SPOKE WITH CARLOTA FROM [employer] REGARDING PROCEDURE FOR THIS PATIENT, WAS TOLD TO CALL SCHEDULING, SPOKE WITH RACH FROM SCHEDULING. PROCEDURE HAS BEEN SCHEDULED AND ORDERS HAVE BEEN FAXED TO [employer] AND HOUSE.
--- NOTE | 2024-05-26 12:15 | NUR ---
REACHED OUT TO DR MCGILL ABOUT PATIENT NOT WANTING TO SIGN CONSENT FOR AARO (PLANT CARE WORKER PROCEDURE) UNTIL SHE COMES IN TO EXPLAIN PROCEDURE TO PATIENT. PENDING RESPONSE BACK.
--- NOTE | 2024-05-26 12:42 | PN ---
[facility] PROGRESS NOTE Date of Service: May 26, 2024 Time of Service: 12:[address] Huang SUBJECTIVE: [ 05[birth year]23 59-year-old male with underlying history of hypertension, hyperlipidemia, peripheral arterial disease, type 2 diabetes mellitus, ESRD on chronic home hemodialysis of Wednesday, Wednesday, Wednesday, history of chronic diabetic foot ulcer of the right heel being followed by Podiatry as outpatient, psoriasis on chronic outpatient steroids and Remicade infusion who presented to the ER after his PermCath for hemodialysis was dislodged. Dislodgement happened on Wednesday and patient decided to come to the ER today for further evaluation. Patient states that similar episode has happened about six months ago and patient had PermCath placed by IR. Patient denies any fevers or chills. Reports that he is due for home hemodialysis today. He has a history of chronic diabetic foot/ heel ulcer being followed by Dr. Jackson as outpatient. He was seen by Dr. Jackson recently and has been taking oral outpatient antibiotics with doxycycline. He is supposed to see Dr. Mata with Infectious Disease on 05/26/2024 given persistent nonresolving infection. [place] [facility] [place] after he was found to have cellulitis involving the TMA site of the right foot along with heel ulcer. Patient was found to have polymicrobial infection with Enterococcus faecalis, Pseudomonas aeruginosa and Bacteroides. He underwent debridement and wound VAC placement and was eventually discharged to [facility]. Patient was also seen by Cardiology and underwent peripheral angiogram with findings of severe right lower extremity PAD and patient underwent angioplasty of the right popliteal and distal SFA by Dr. Arzate. He was supposed to be on dual antiplatelet therapy with aspirin and Plavix but patient states that he has not taken either aspirin or Plavix after discharge from [facility]. On presentation to the hospital, patient was noted to be afebrile and hemodynamically stable. EKG showed normal sinus rhythm. chest x-ray showed no pulmonary edema. [place] [address], hemoglobin of 8.2, platelet count of 250,000. Patient initially stated that he did not want to be admitted and wanted IR to change catheter and be discharged home. But after further discussion, he is agreeable to be admitted for further evaluation by Dr. Jackson with regards to nonhealing ulcer/eschar of the right foot. we will rule out any active cellulitis and patient will be started on broad-spectrum antibiotics. Blood cultures will be obtained. Consultation with IR will be obtained as well for placement of PermCath. We will see how patient progresses. Patient has significant PAD, patient may need Cardiology evaluation as well as he has been off dual antiplatelet therapy for several months now. 05/23/23 patient was seen by nurse practitioner and physician during rounding in room 419. at the bedside. Per RN patient has been refusing labs that were ordered for PermCath placement. Patient has no access for dialysis at this moment. Patient was evaluated by Dr. Jackson and that is recommending Betadine dressing. Also cardiology recommendation is still pending. Podiatry order MRI ankle right foot but unfortunately patient is refusing scan as well. Patient stated that he came to [facility] only to get PermCath placement and he is leaving. He threatened that if he will not get PermCath by 2:00 p.m. he will leave AMA. Patient is refusing Cardiology consultation to evaluate arteries and is also refusing ID consultation for possible osteomyelitis for antibiotics. We will continue to monitor patient in the meantime. A.m. labs 05/24/24 patient was seen by nurse practitioner and physician. Patient underwent PermCath placement 05/23/2024 by IR. Patient was seen by senior automation engineer and they recommended CTA abdomen aorta with runoff. Patient is refusing. Dr. Merritt was notified by RN. Patient underwent dialysis yesterday 05/23/2024 and 3.1 L was removed after the catheter placed. Patient continues to refuse infectious disease doctor for antibiotic treatment/recommendations. Dr. Kincaid was consulted for amputation as requested by patient. We are pending further evaluation/recommendations. MRI ankle that was ordered yesterday was also refused and patient is still continues to refuse it. We will continue to monitor patient in the meantime. A.m. labs 05/25/24 patient was seen by nurse practitioner and physician during rounding in room 419 sitting in the bed. Patient was evaluated by Dr. Jackson and at this moment patient is pending evaluation of his circulation with a CTA abdominal aorta with a runoff. The exam was already taken just pending results at this moment. Patient is receiving hemodialysis as scheduled by rewrite editor . Patient continues to receive IV antibiotics vancomycin and cefepime. Per Dr. Horne's recommendation patient will be best served with a minimal of below the knee amputation on the right side due to gangrene and osteomyelitis affecting the posterior heel, posterior ankle on the right. Patient was also seen by the urologist and further recommendations are pending once CT runoff study of the peripheral arterial vasculature will be performed. Today WBC is 11.7 H&H stable. As per floor manager surgeon Dr. Montes, further recommendations based on lab and radiology results. We will continue to monitor patient in the meantime. A.m. labs 05/26/24 patient was seen by AUGER MACHINE OFFBEARER and physician during rounding. Patient underwent T come and CT abdomen aorta went runoff which was abnormal. Dr. Merritt ordered AARO Poss PVI RLE, and at this moment patient is denying to do the procedure. Patient stated he would like to talk to senior automation engineer 1st. Dr. Jackson still continues to recommend surgery. Patient is requesting 2nd opinion Dr. Edmonds will be consulted. Nurse practitioner was able to convince patient to consult Infectious Disease doctor due to right heel culture is growing Enter ococcus faecalis, Streptococcus oralis MRSA, Pseudomonas aeruginosa. Nurse practitioner continue vancomycin and started the patient on Merrem, discontinue cefepime. Patient also stated that he does not want to proceed with the surgical intervention of amputation at this moment. he would like to go home on antibiotics and after treatment to re-evaluate if amputations still needed. We will continue to monitor patient in the meantime. A.m. labs] REVIEW OF SYSTEMS CONSTITUTIONAL: reports that permacath was dislodged today NEUROLOGICAL: Denies headache, amaurosis fugax, motor weakness, sensory deficit, vertigo/spinning sensation, gait abnormalities, or tremors. ENT: No hearing loss, otalgia, otorrhea, rhinitis, rhinorrhea, hoarseness, or sore throat. CARDIOVASCULAR: Denies any exertional angina, dyspnea on exertion, orthopnea, paroxysmal nocturnal dyspnea, palpitations, life-threatening arrhythmias, claudication. PULMONARY: Denies any shortness of breath, cough, phlegm/sputum, hemoptysis, pleuritic chest pain. SLEEP: Denies morning headaches, daytime somnolence or napping. Denies difficul ty falling asleep, staying asleep, waking from sleep. Denies knowledge of snoring. GASTROINTESTINAL: Denies any type of dysphagia to either liquids or solids. Denies nausea, vomiting, pyrosis, early satiety, abdominal pain, diarrhea, constipation, or changes in stool consistency or caliber. Denies coffee-ground emesis, hematemesis, hematochezia, or melanotic stools. GENITOURINARY: Denies frequency, urgency, nocturia, hematuria or incontinence (Storage/Irritative symptoms.) Low urinary stream, straining to void, urinary intermittency or hesitancy, splitting of the voiding stream, terminal dribbling. ENDOCRINOLOGIC: Denies polyuria, polydipsia, polyphagia or heat/cold intole rances. HEMATOLOGIC: Denies thrombophilia/previous clots, or coagulopathy/bleeding disorders. ONCOLOGIC: Denies personal history of malignancy. DERMATOLOGIC: ulcer involving the right foot heel PSYCHIATRIC: Denies any suicidal or homicidal ideation. Denies hallucinations. PHYSICAL EXAM GENERAL APPEARANCE: The patient is awake, alert, and oriented, in no acute cardiopulmonary distress. NEUROLOGICAL: Cranial nerves II-XII grossly intact. Motor is 5/5 in bilateral upper and lower extremities proximal to distal. No sensory deficits. HEENT: Face is symmetric. Pupils are equal and reactive. Extraocular movements are intact. NECK: Supple. No JVD. No thyromegaly. No submental, submandibular, pre- /postauricular, occipital or supraclavicular lymphadenopathy. CHEST: Normal chest expansion. No Telemetry. LUNGS: Absence of any rales, rhonchi or any wheezing. CARDIOVASCULAR: Regular. S1 and S2 normal. No appreciable rubs, murmurs or gallops. ABDOMEN: Soft, nontender, and nondistended. There is no rebound, voluntary guarding, or rigidity. : Deferred. No Hutson. EXTREMITIES: Patient has heel has a large area of eschar with possible necrotic region SKIN: No skin breakdown. Vital Signs (last 8hr) Date Time Temp Pulse Resp B/P (MAP) Pulse Ox O2 Delivery O2 Flow Rate FiO2 05/26/24 09:29 93 Room Air* 0 21 05/26/24 08:00 98.2 96 18 158/64 92 Room Air 21 LABS: Laboratory: Test 05/26/24 10:51 05/26/24 04:25 Range/Units Whole Blood Glucose 243 H 70-110 MG/DL Bedside Glucose Comment Notified Nurse White Blood Count 11.5 H 4.8-10.8 K/uL Red Blood Count 2.35 L 4.50-6.20 MIL/uL Hemoglobin 7.1 L 14.0-18.0 g/dL Hematocrit 22.6 L 42-54 % Mean Corpuscular Volume 96.2 79-99 fL Mean Corpuscular Hemoglobin 30.2 27.0-33.0 pg Mean Corpuscular Hemoglobin Concent 31.4 L 32.0-36.0 g/dL Red Cell Distribution Width 15.8 H 11.0-15.5 % Platelet Count 190 130-400 K/uL Mean Platelet Volume 10.9 H 7.5-10.5 fL Immature Granulocyte % (Auto) 0.5 0-1 % Neutrophils (%) (Auto) 78.1 H 40.0-77.0 % Lymphocytes (%) (Auto) 13.2 L 21.0-51.0 % Monocytes (%) (Auto) 6.9 3.0-13.0 % Eosinophils (%) (Auto) 1.0 0.0-8.0 % Basophils (%) (Auto) 0.3 0.0-5.0 % Neutrophils # (Auto) 9.0 H 1.8-7.7 K/uL Lymphocytes # (Auto) 1.5 1.0-4.8 K/uL Monocytes # (Auto) 0.8 0.1-1.0 K/uL Eosinophils # (Auto) 0.12 0.00-0.70 K/uL Basophils # (Auto) 0.03 0.00-0.20 K/uL Absolute Immature Granulocyte (auto 0.06 0-1 K/uL Nucleated Red Blood Cells 0.0 0.0-0.19 % Sodium Level 140 136-145 mmol/L Potassium Level 4.4 3.5-5.1 mmol/L Chloride Level 102 101-111 mmol/L Carbon Dioxide Level 30 21-32 mmol/L Blood Urea Nitrogen 39 H 7-18 mg/dL Creatinine 5.0 H 0.5-1.3 mg/dL Glomerular Filtration Rate Calc 12 >90 mL/min Random Glucose 241 H 70-105 mg/dL Total Calcium 7.3 L 8.5-10.1 mg/dL Magnesium Level 1.80 1.80-2.40 mg/dL Total Bilirubin 0.5 0.2-1.0 mg/dL Aspartate Amino Transf (AST/SGOT) 8 L 10-37 U/L Alanine Aminotransferase (ALT/SGPT) 7 L 12-78 U/L Alkaline Phosphatase 96 50-136 U/L Total Protein 6.0 6.0-8.3 g/dL Albumin 2.3 L 3.5-5.0 g/dL Current Medications Medications (Trade) Dose Ordered Sig/Idania Route PRN Reason Start Time Stop Time Status Last Admin Dose Admin Acetaminophen (TYLenol 325MG TAB) 650 mg Q6H PRN PO MILD PAIN (1-3) 05/22/24 10:30 06/21/24 10:29 Acetaminophen/ Hydrocodone Bitart (NORco 5/325MG) 1 tab Q8H PRN PO MODERATE PAIN (4-6) 05/22/24 23:00 05/27/24 22:59 05/22/24 22:51 1 TAB Aspirin (Aspirin 81mg Chew Tab) 81 mg DAILY PO 05/23/24 09:00 05/23/24 00:22 DC Aspirin (Aspirin 81mg Chew Tab) 81 mg DAILY PO 05/23/24 17:00 06/22/24 16:59 05/26/24 09:20 81 MG Atorvastatin Calcium (LIPItor 40MG) 40 mg HS PO 05/23/24 21:00 06/22/24 20:59 05/25/24 21:36 40 MG Cefepime HCl (MAXipime 1 GM vial) 1 gm Q24H IVPB 05/22/24 11:00 05/26/24 12:08 DC 05/25/24 10:19 1 GM Clopidogrel Bisulfate (plaVIX 75MG) 75 mg DAILY PO 05/23/24 13:00 05/23/24 00:22 DC Clopidogrel Bisulfate (plaVIX 75MG) 75 mg DAILY PO 05/23/24 17:00 05/23/24 14:21 DC Clopidogrel Bisulfate (plaVIX 75MG) 75 mg DAILY PO 05/24/24 09:00 06/23/24 08:59 05/26/24 09:20 75 MG Heparin Sodium (Porcine) (HEParin 5,000 UNIT VIAL) 10,000 unit AD IRRIG 05/24/24 13:00 06/23/24 12:59 Hydralazine HCl (APRESOLine 20MG INJ) 5 mg Q6H PRN IV ADMINISTER FOR SBP > 160 05/22/24 12:30 06/21/24 12:29 05/22/24 21:19 5 MG Insulin Human Regular (humuLIN R 100 UNIT/ML 3ML) INSULIN SLIDING SCAL... ACHS SQ 05/22/24 11:30 06/21/24 11:29 05/26/24 07:54 5 UNIT Meropenem (Merrem 1gm) 1 gm Q24H IV 05/26/24 14:00 06/16/24 13:59 Nifedipine (adALAT 30MG) 60 mg Q24H PO 05/22/24 11:00 05/22/24 19:16 DC Nifedipine (adALAT 30MG) 60 mg Q24H PO 05/22/24 19:30 06/21/24 19:29 05/24/24 20:51 60 MG Ondansetron HCl (zoFRAN 4MG INJ) 4 mg Q6H PRN IVP NAUSEA/VOMITING 05/22/24 10:30 06/21/24 10:29 Pantoprazole Sodium (PROTonix 40MG TAB) 40 mg DAILY PO 05/23/24 09:00 06/22/24 08:59 05/26/24 09:19 40 MG Pharmacy Profile Note (Pharmacy Communication) 1 each ONCE MISC 05/22/24 11:00 05/22/24 10:57 DC Prednisone (deltaSONE/ oraSONE 5MG) 5 mg BID PO 05/22/24 21:00 06/21/24 20:59 05/26/24 09:20 5 MG Vancomycin HCl (Vancomycin 750mg) 750 mg QMOWEFR[DIALYSIS] IVPB 05/26/24 16:00 06/05/24 15:59 Vancomycin HCl (Vancomycin Protocol) 1 each AD IV 05/22/24 11:00 06/05/24 10:59 Vitamin B Complex/ Vit C/Folic Acid (Nephrovite Tablet) 1 cap DAILY PO 05/23/24 09:00 06/22/24 08:59 05/25/24 10:19 1 CAP DIAGNOSTICS / RADIOLOGY: [ ] ASSESSMENT: Dislodged PermCath, POA s/p PermCath placement 05/23/2024 by IR History of ESRD on home hemodialysis therapy, POA osteomyelitis per foot x-ray 05/22/2024 Right heel culture growing Enterococcus faecalis, Streptococcus MRSA, Pseudomonas aeruginosa 05/22/2024 Chronic leukocytosis, POA Underlying immunosuppression on outpatient treatment with steroids and Remicade, POA Nonhealing diabetic foot ulcer/heel ulcer with associated deep eschar/necrotic region, being followed by Dr. Jackson as outpatient, POA Anemia of renal disease, POA Underlying history of type 2 diabetes mellitus, POA History of chronic prednisone use as outpatient, POA Uncontrolled Hypertension, POA Hyperlipidemia, POA History of peripheral arterial disease, POA Prior history of angioplasty to right popliteal artery and distal SFA by Dr. Arzate on 01/24/2024, POA History penicillin allergy, POA Noncompliance PLAN: Admit to: Medical-surgical with telemetry Consults: Local Combination Truck Driver, senior automation engineer, rewrite editor, surgeon, patient agreed to consult ID, 2nd opinion Dr. Edmonds consulted Antibiotics: Vancomycin, cefepime discontinue, start Merrem Tests: MRI ankle right foot which patient is refusing. TCOM pending. AARO Poss PVI RLE ordered by senior automation engineer. At this moment patient is refusing. NEURO: Minimize central acting medications as possible. Fall Precautions. Well lighted room through the day and minimize interruptions through the night to prevent acute delirium. PULMONARY: Supplemental 02 as needed BiPAP as necessary, for respiratory distress Titrate Fio2 to keep Spo2 > or = 90% DuoNebs and CPT as needed IS hourly while awake for pulmonary hygiene Out of bed to chair as tolerated VAP Bundle Maintain aspiration precautions at all times CARDIOVASCULAR: Follow hemodynamics. Vital signs per facility protocol Arterial ultrasound PVD CTA abdomen aorta with runoff abnormal TCOm pending GI & NUTRITION: Continue nutritional support Aspirations precautions Prokinetic agents and laxatives as needed KIDNEYS & ELECTROLYTES: PermCath placement 05/23/2024 ESRD dialysis Wednesday Strict monitoring of intake and output Daily weights Avoid nephrotoxic agents Monitor electrolytes and replace as needed Goal urine output of 30mL/hr or 0.5mL/kg/hr Medications to be dosed according to renal function. Avoid contrast if possible ENDOCRINE: Maintain blood glucose between 100-180 at all times. Insulin sliding scale for blood glucose management Hypoglycemia and hyperglycemia protocol in place INFECTIOUS DISEASE: Right heel Enterococcus faecalis, Streptococcus oralis MRSA, Pseudomonas aeruginosa Trend temperature, WBC and procalcitonin level Follow cultures, deescalate antibiotics as soon as possible. Panculture if new onset fever Vancomycin, cefepime ABX HEMATOLOGY & COAGULATION: Monitor H&H. Keep Hgb > 7 Transfuse 1 unit of PRBC for Hgb < 7 Transfuse 1 pack of platelets of platelets < 20, 000 Watch for any signs and symptoms of bleeding SKIN: Pressure ulcer prevention per facility protocol Specialty mattress as needed Treatment plan discussed with patient and family at the bedside Medications to be reconciled once obtained by patient and/or family and available to be reconciled in computer p.r.n. medication for pain nausea and vomiting Questions were answered We will continue to monitor the patient closely Lab Courier for disposition Rehab: PT/OT GI: PPI DVT: SCD's Code Status: Full Resuscitation Disposition: TBD Prognosis: Guarded ATTESTATION BY PHYSICIAN I have seen and examined the patient. I reviewed the documentation, medical decision making, and treatment plan as noted by the mid-level provider above. I agree with the findings and plan of care. Jennifer Huang MD, KATARZYNA B BLUEPRINT ASSEMBLER May 26, 2024 12:42
[2024-05-26] MEDS ORDERED: MEROPENEM 1GM 1 GM VIAL IV SCH (14:00)
--- NOTE | 2024-05-26 14:59 | PN ---
PROGRESS NOTE Date of Service: May 26, 2024 Time of Service: 14:57 SUBJECTIVE: No new concerns. last HD treatment was yesterday. Tolerated session. Denies fever chills and pain REVIEW OF SYSTEMS CONSTITUTIONAL: Denies fever, chills, or fatigue. HEAD/FACE: No signs of trauma. EENT: Denies eye pain, blurred vision, double vision, or light sensitivity. RESPIRATORY: Denies shortness of breath, cough, wheezing CARDIOVASCULAR: Denies chest pain, palpitation, syncope GASTROINTESTINAL/ABDOMINAL: Denies abdominal pain, constipation, diarrhea, nausea or vomiting GENITOURINARY: Denies dysuria or hematuria. MUSCULOSKELETAL: Denies joint pain, tenderness, or trauma. INTEGUMENTARY: Denies rash or itchiness NEUROLOGICAL/PSYCH: Denies anxiety, depression, heat or cold intolerance. PHYSICAL EXAM EYES: Anicteric. Pupils equal and reactive. HENT: No oral thrush seen, moist Oral mucosa NECK: Supple, no JVD or thyromegaly. LUNGS: Good air entry. No rales, no rhonchi. CARDIOVASCULAR: S1, S2 regular. No murmur heard. ABDOMEN: Soft, non tender, bowel sounds present, no organomegaly CENTRAL NERVOUS SYSTEM: Awake, alert, oriented x 3. No focal deficits. SKIN: No rashes, no swelling. LYMPHATICS: No peripheral lymphadenopathy MUSCULOSKELETAL: No joint swelling, erythema or tenderness. EXTREMITIES: No cyanosis or clubbing BACK: No deformity, no pressure ulcer. GENITOURINARY: No dysuria or hematuria Vital Signs (last 8hr) Date Time Temp Pulse Resp B/P (MAP) Pulse Ox O2 Delivery O2 Flow Rate FiO2 05/26/24 12:00 98.8 83 18 130/62 92 Room Air 21 05/26/24 09:29 93 Room Air* 0 21 05/26/24 08:00 98.2 96 18 158/64 92 Room Air 21 LABS: Laboratory: Test 05/26/24 10:51 05/26/24 04:25 Range/Units Whole Blood Glucose 243 H 70-110 MG/DL Bedside Glucose Comment Notified Nurse White Blood Count 11.5 H 4.8-10.8 K/uL Red Blood Count 2.35 L 4.50-6.20 MIL/uL Hemoglobin 7.1 L 14.0-18.0 g/dL Hematocrit 22.6 L 42-54 % Mean Corpuscular Volume 96.2 79-99 fL Mean Corpuscular Hemoglobin 30.2 27.0-33.0 pg Mean Corpuscular Hemoglobin Concent 31.4 L 32.0-36.0 g/dL Red Cell Distribution Width 15.8 H 11.0-15.5 % Platelet Count 190 130-400 K/uL Mean Platelet Volume 10.9 H 7.5-10.5 fL Immature Granulocyte % (Auto) 0.5 0-1 % Neutrophils (%) (Auto) 78.1 H 40.0-77.0 % Lymphocytes (%) (Auto) 13.2 L 21.0-51.0 % Monocytes (%) (Auto) 6.9 3.0-13.0 % Eosinophils (%) (Auto) 1.0 0.0-8.0 % Basophils (%) (Auto) 0.3 0.0-5.0 % Neutrophils # (Auto) 9.0 H 1.8-7.7 K/uL Lymphocytes # (Auto) 1.5 1.0-4.8 K/uL Monocytes # (Auto) 0.8 0.1-1.0 K/uL Eosinophils # (Auto) 0.12 0.00-0.70 K/uL Basophils # (Auto) 0.03 0.00-0.20 K/uL Absolute Immature Granulocyte (auto 0.06 0-1 K/uL Nucleated Red Blood Cells 0.0 0.0-0.19 % Sodium Level 140 136-145 mmol/L Potassium Level 4.4 3.5-5.1 mmol/L Chloride Level 102 101-111 mmol/L Carbon Dioxide Level 30 21-32 mmol/L Blood Urea Nitrogen 39 H 7-18 mg/dL Creatinine 5.0 H 0.5-1.3 mg/dL Glomerular Filtration Rate Calc 12 >90 mL/min Random Glucose 241 H 70-105 mg/dL Total Calcium 7.3 L 8.5-10.1 mg/dL Magnesium Level 1.80 1.80-2.40 mg/dL Total Bilirubin 0.5 0.2-1.0 mg/dL Aspartate Amino Transf (AST/SGOT) 8 L 10-37 U/L Alanine Aminotransferase (ALT/SGPT) 7 L 12-78 U/L Alkaline Phosphatase 96 50-136 U/L Total Protein 6.0 6.0-8.3 g/dL Albumin 2.3 L 3.5-5.0 g/dL DIAGNOSTICS / RADIOLOGY: BLOW TORCH OPERATOR PROCEDURE REQUEST REASON: DISLODGED PERMACATH. COMPARISON: None TECHNIQUE: Fluoroscopic guidance with placement of left internal jugular-right atrial tunneled Duramax dialysis catheter. FINDINGS: The right internal jugular vein is occluded at the junction with the superior vena cava and right subclavian vein. Left internal jugular vein is patent. PROCEDURE: Informed consent obtained the patient following explanation of risk, benefits, complications. Timeout performed by nursing staff. Continuous monitoring was performed of the patient during the procedure I nursing personnel including cardiovascular status, oxygenation, respiration. Patient received intravenous titrated doses of Versed and fentanyl during the procedure administered by nursing personnel. Right neck and left neck were prepped and draped in sterile fashion. Ultrasound of the right neck demonstrates large amount thrombus within the proximal internal jugular vein. Following local anesthesia with 1% lidocaine, access gained into the right internal jugular vein under direct ultrasound guidance. Guidewire could not be passed beyond the area of obstruction at the junction with the SVC. This site was abandoned and attention was made to the left internal jugular venous access site. Following local anesthesia with 1% lidocaine subcutaneous, needle access into the left internal jugular vein obtained with ultrasound guidance. Fine guidewire placement, microcatheter access was passed over the guidewire. J-wire was then passed through the sheath in past the right atrium into the inferior vena cava. Fashion dilatation performed, tunneled Duramax catheter 32 cm in length, was passed over guidewire and the tip of the catheter positioned within the right atrium. Both ports were flushed, aspirated, flushed, heparinized, capped, clamped. Catheter secured to the skin with retention suture and sterile dressing. Patient tolerated procedure well without evidence of comp occasions. Total fluoroscopic time: 3.7 minutes. Estimated blood loss: Less than 8 ml. IMPRESSION: Placement of 32 cm tunneled Duramax dialysis catheter with the tip positioned within the right atrium. Access from the left internal jugular vein. Catheter is ready for immediate use. ASSESSMENT: ESRD DM2 with nephropathy HTN with renal manifestation Hyperkalemia Anemia of CKD PLAN: No acute HD today, HD plan for tomorrow, Monitor Electrolytes Renal Diet CHEPE as per protocol with HD treatments Continue home medications LALITHA KOCH May 26, 2024 14:59
--- NOTE | 2024-05-26 15:25 | NUR ---
DR MCGILL IN AT BEDSIDE TO SPEAK TO PATIENT REGARDING RESCHEDULING OF PRE SCHOOL MANAGER PROCEDURE.
[2024-05-26] MEDS ORDERED: VANCOMYCIN 750MG VIAL IVPB SCH (16:00)
--- NOTE | 2024-05-26 16:00 | NUR ---
PATIENT REFUSES TO HAVE HIS SUGAR CHECKED. EDUCATED PATIENT ON THE IMPORTANCE OF CHECKING HIS SUGAR, STATED HE IS AWARE. STILL REFUSING AT THIS TIME.
--- NOTE | 2024-05-26 16:20 | NUR ---
SPOKE TO DR LESTER REGARDING NEW CONSULT, SAID HE WILL TAKE CONSULT, BUT DOES NOT RETURN UNTIL WEDNESDAY. PATIENT AND PRIMARY TEAM MADE AWARE.
[2024-05-26] MEDS: MEROPENEM 1GM 1 GM VIAL IV SCH (17:36)
[2024-05-27] VITALS (21 sets, daily range): BP systolic 104–156; BP diastolic 48–87; PULSE 65–98; RESP 16–20; TEMP 97.8–98.8; O2SAT 95–99
[2024-05-27 05:14] LABS: BASOPHILS # (AUTO) 0.03 K/uL (0.00-0.20); BASOPHILS % (AUTO) 0.2 % (0.0-5.0); EOSINOPHILS # (AUTO) 0.18 K/uL (0.00-0.70); EOSINOPHILS % (AUTO) 1.5 % (0.0-8.0); HEMATOCRIT 22.8 % (42-54); IMMATURE GRANULOCYTE ABSOLUTE 0.08 K/uL (0-1); LYMPHOCYTES # (AUTO) 1.8 K/uL (1.0-4.8); LYMPHOCYTES % (AUTO) 14.3 % (21.0-51.0); MEAN CORPUSCULAR HEMOGLOBIN 30.8 pg (27.0-33.0); MEAN CORPUSCULAR HGB CONC 31.6 g/dL (32.0-36.0); MEAN CORPUSCULAR VOLUME 97.4 fL (79-99); MONOCYTES # (AUTO) 0.7 K/uL (0.1-1.0); MONOCYTES % (AUTO) 5.9 % (3.0-13.0); NEUTROPHILS # (AUTO) 9.6 K/uL (1.8-7.7); NEUTROPHILS % (AUTO) 77.5 % (40.0-77.0); PLATELET COUNT (AUTO) 195 K/uL (130-400); RED BLOOD CELL COUNT(AUTO) 2.34 MIL/uL (4.50-6.20); RED CELL DISTRIBUTION WIDTH 15.7 % (11.0-15.5); WHITE BLOOD COUNT (AUTO) 12.4 K/uL (4.8-10.8)
[2024-05-27 05:33] LABS: ALBUMIN 2.5 g/dL (3.5-5.0); BILIRUBIN,TOTAL 0.4 mg/dL (0.2-1.0); CREATININE 6.3 mg/dL (0.5-1.3); MAGNESIUM 1.9 mg/dL (1.80-2.40); POTASSIUM 4.2 mmol/L (3.5-5.1); TOTAL PROTEIN, SERUM 6.2 g/dL (6.0-8.3)
--- NOTE | 2024-05-27 09:16 | PN ---
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 Jackson. He is status post a remote right [facility] and began having some difficulties with his right heel ulcer approximately December of 2023. He was found to have a polymicrobial infection with Enterococcus faecalis, Pseudomonas aeruginosa and has undergone management as an outpatient including a short stay at [facility]. He also underwent successful IVUS guided, shockwave and ROPER OPERATOR DCB of the right poplit eal (4 x 80 mm DCB) and distal SFA (5 x 40 mm DCB) with religion of brisk three-vessel runoff to the right foot on 01/23/2025. It appears he has been noncompliant with dual antiplatelet therapy post peripheral intervention. He has been managed for possible osteomyelitis at the [facility] site by Dr. Jackson. The patient is pending a 2nd opinion from Dr. Edmonds before proceeding with either right lower extremity amputation or proceeding with repeat right lower extremity peripheral angiogram and possible intervention. He offers no complaints of chest pain, shortness of breath or other cardiac complaints. Telemetry has demonstrated a normal sinus rhythm with a heart rate 80-90 beat per minute range and no arrhythmias identified. Physical Examination: GENERAL: No acute distress. HEAD: Normal with no signs of head trauma. EYES: PERRLA, EOMI, conjunctiva and sclera normal. NECK: Supple without JVD. There is no tenderness, lymphadenopathy, or masses. No thyromegaly. Normal carotid upstrokes without bruits. LUNGS: Clear breath sounds bilaterally. No wheezes, or rhonchi. HEART: Normal rate and rhythm. Normal S1 and S2 without murmurs, gallop or rub. VASC: Right TMA site is with dressing, left lower extremity has hyperpigmentation and pedal pulses are not palpable. The left foot is warm and appears well perfused and there are no open lesions or areas to suggest rest ischemia.] EXT: No clubbing, cyanosis or edema. NEURO: Awake, alert, and oriented x3. No focal neurological deficits noted. Laboratory: Hematology Labs: Test 05/27/24 04:55 Range/Units White Blood Count 12.4 H 4.8-10.8 K/uL Red Blood Count 2.34 L 4.50-6.20 MIL/uL Hemoglobin 7.2 L 14.0-18.0 g/dL Hematocrit 22.8 L 42-54 % Mean Corpuscular Volume 97.4 79-99 fL Mean Corpuscular Hemoglobin 30.8 27.0-33.0 pg Mean Corpuscular Hemoglobin Concent 31.6 L 32.0-36.0 g/dL Red Cell Distribution Width 15.7 H 11.0-15.5 % Platelet Count 195 130-400 K/uL Mean Platelet Volume 11.0 H 7.5-10.5 fL Immature Granulocyte % (Auto) 0.6 0-1 % Neutrophils (%) (Auto) 77.5 H 40.0-77.0 % Lymphocytes (%) (Auto) 14.3 L 21.0-51.0 % Monocytes (%) (Auto) 5.9 3.0-13.0 % Eosinophils (%) (Auto) 1.5 0.0-8.0 % Basophils (%) (Auto) 0.2 0.0-5.0 % Neutrophils # (Auto) 9.6 H 1.8-7.7 K/uL Lymphocytes # (Auto) 1.8 1.0-4.8 K/uL Monocytes # (Auto) 0.7 0.1-1.0 K/uL Eosinophils # (Auto) 0.18 0.00-0.70 K/uL Basophils # (Auto) 0.03 0.00-0.20 K/uL Absolute Immature Granulocyte (auto 0.08 0-1 K/uL Nucleated Red Blood Cells 0.0 0.0-0.19 % Chemistry Labs: Test 05/27/24 05:13 05/27/24 04:55 05/26/24 10:51 Range/Units Whole Blood Glucose 342 H 70-110 MG/DL Sodium Level 138 136-145 mmol/L Potassium Level 4.2 3.5-5.1 mmol/L Chloride Level 101 101-111 mmol/L Carbon Dioxide Level 26 21-32 mmol/L Blood Urea Nitrogen 47 H 7-18 mg/dL Creatinine 6.3 H 0.5-1.3 mg/dL Glomerular Filtration Rate Calc 9 >90 mL/min Random Glucose 342 H 70-105 mg/dL Total Calcium 7.6 L 8.5-10.1 mg/dL Magnesium Level 1.90 1.80-2.40 mg/dL Total Bilirubin 0.4 0.2-1.0 mg/dL Aspartate Amino Transf (AST/SGOT) 8 L 10-37 U/L Alanine Aminotransferase (ALT/SGPT) 6 L 12-78 U/L Alkaline Phosphatase 113 50-136 U/L Total Protein 6.2 6.0-8.3 g/dL Albumin 2.5 L 3.5-5.0 g/dL Bedside Glucose Comment Notified Nurse Diagnostics / Radiology: CT angiogram of the lower extremities 05/25/2024: Findings: The vascular examination is abnormal. There is atheromatous disease of the common iliac arteries, the distal abdominal aorta, the superficial femoral arteries, popliteal arteries. All are patent and so are the trifurcations bilaterally. Segmental occlusions of the anterior tibial artery seen bilaterally, both occluded at or above the ankle level. Interosseous arteries are occluded above the ankle level and the runoff is provided by severely limited posterior tibial arteries bilaterally. There is no aortic aneurysm. There is no occlusion. There is no dissection. There is no extravasation to suggest laceration or rupture. No evidence of nephro or ureterolithiasis is found. No hydronephrosis or ureteral dilatation is seen. The visualized portion of the stomach is unremarkable. It shows no wall thickening. No gross ulceration is seen. It is not overly distended. There are no surrounding inflammatory changes. No wall lesions are identified to suggest cancer. The visualized portion of the spleen is unremarkable. It is not enlarged. The pancreas shows normal anatomy. It is not fatty replaced. It shows no lesions. The pancreatic duct is not dilated. The gallbladder is unremarkable. It shows no cholelithiasis. The gallbladder wall is normal in thickness. There is no pericholecystic fluid. The is no acute or chronic inflammation noted. The adrenal glands are unremarkable. There is no enlargement. No lesions are noted. The visualized portion of the liver is unremarkable. It shows no focal masses. The appendix is unremarkable. It shows no evidence of inflammation. No appendicolith is seen. The small bowel is unremarkable. There is no evidence of dilatation to suggest obstruction. No evidence of adynamic ileus is seen. There is no small bowel wall thickening to suggest enteritis. The colon is unremarkable. The urinary bladder is unremarkable. There is no wall thickening to suggest tumor or inflammation. There are no intraluminal calculi. There are no diverticula. There is no evidence of chronic bladder outlet obstruction. There is no evidence of urinary bladder distention to suggest urinary retention. The other pelvic structures are unremarkable. The bony and vascular structures are unremarkable for the patient's age. IMPRESSION: The vascular examination is abnormal. There is atheromatous disease of the common iliac arteries, the distal abdominal aorta, the superficial femoral arteries, popliteal arteries. All are patent and so are the trifurcations bilaterally. Segmental occlusions of the anterior tibial artery seen bilaterally, both occluded at or above the ankle level. Interosseous arteries are occluded above the ankle level and the runoff is provided by severely limited posterior tibial arteries bilaterally. Impression and Plan: Peripheral artery disease Chronic nonhealing right heel wound with possible osteomyelitis at the TMA site Status post prior successful IVUS guided shockwave and ROPER OPERATOR/DCB of the right popliteal (4 x 80 mm DCB) and distal SFA (5 x 40 mm DCB) with religion of brisk three-vessel runoff on 01/23/2025, noncompliance with outpatient dual antiplatelet therapy postprocedure: CT angiogram with lower extremity runoff 05/25/2024 demonstrated patent va sculature at the prior peripheral intervention site but infrapopliteal disease with evidence of occluded anterior tibial and peroneal arteries and possible severe disease of the ROPER OPERATOR: -continue antibiotic therapy -pending 2nd opinion from Dr. Edmonds prior to final decision regarding proceeding with right lower extremity amputation versus right lower extremity peripheral angiogram and attempts at revascularization: -continue dual antiplatelet therapy with aspirin 81 mg p.o. daily, clopidogrel 75 mg p.o. daily and continue atorvastatin 40 mg p.o. daily Comorbidities: Probable nonobstructive coronary artery disease with CT coronary calcium score of 87 on 06/2021 Hypertension Type 2 diabetes mellitus with renal and circulatory manifestations End-stage renal disease on chronic hemodialysis Anemia of chronic disease History of psoriasis on immunosuppressive therapy with Remicade and steroid therapy PHYSICIAN ATTESTATION OF PHYSICIAN MACHINE OPERATOR HOP WORKER DOCUMENTATION: I attest that I was physically present for the zuniga portions of the service and evaluated the patient with the Physician Field Traffic Investigator, and I reviewed and discussed the case with the Physician Field Traffic Investigator and made modifications to the Physician Field Traffic Investigator's findings and plans of care as documented above CESAR NORMAN May 27, 2024 09:16 SYDNEE ROBLES MD May 27, 2024 17:00
--- NOTE | 2024-05-27 09:37 | PN ---
[facility] PROGRESS NOTE Date of Service: May 27, 2024 Time of Service: 09:30 SUBJECTIVE: [ 05/[birth year]/23 59-year-old male with underlying history of hypertension, hyperlipidemia, peripheral arterial disease, type 2 diabetes mellitus, ESRD on chronic home hemodialysis of Wednesday, Wednesday, Wednesday, history of chronic diabetic foot ulcer of the right heel being followed by Podiatry as outpatient, psoriasis on chronic outpatient steroids and Remicade infusion who presented to the ER after his PermCath for hemodialysis was dislodged. Dislodgement happened on Wednesday and patient decided to come to the ER today for further evaluation. Patient states that similar episode has happened about six months ago and patient had PermCath placed by IR. Patient denies any fevers or chills. Reports that he is due for home hemodialysis today. He has a history of chronic diabetic foot/ heel ulcer being followed by Dr. Jackson as outpatient. He was seen by Dr. Jackson recently and has been taking oral outpatient antibiotics with doxycycline. He is supposed to see Dr. Mata with Infectious Disease on 05/26/2024 given persistent nonresolving infection. [place] [facility] after he was found to have cellulitis involving the TMA site of the right foot along with heel ulcer. Patient was found to have polymicrobial infection with Enterococcus faecalis, Pseudomonas aeruginosa and Bacteroides. He underwent debridement and wound VAC placement and was eventually discharged to [facility]. Patient was also seen by Cardiology a nd underwent peripheral angiogram with findings of severe right lower extremity PAD and patient underwent angioplasty of the right popliteal and distal SFA by Dr. Arzate. He was supposed to be on dual antiplatelet therapy with aspirin and Plavix but patient states that he has not taken either aspirin or Plavix after discharge from [facility]. On presentation to the hospital, patient was noted to be afebrile and hemodynamically stable. EKG showed normal sinus rhythm. chest x-ray showed no pulmonary edema. [place] [address], hemoglobin of 8.2, platelet count of 250,000. Patient initially stated that he did not want to be admitted and wanted IR to change catheter and be discharged home. But after further discussion, he is agreeable to be admitted for further evaluation by Dr. Jackson with regards to nonhealing ulcer/eschar of the right foot. we will rule out any active cellulitis and patient will be started on broad-spectrum antibiotics. Blood cultures will be obtained. Consultation with IR will be obtained as well for placement of PermCath. We will see how patient progresses. Patient has significant PAD, patient may need Cardiology evaluation as well as he has been off dual antiplatelet therapy for several months now. 05/23/23 patient was seen by nurse practitioner and physician during rounding in room 419. at the bedside. Per RN patient has been refusing labs that were ordered for PermCath placement. Patient has no access for dialysis at this moment. Patient was evaluated by Dr. Jackson and that is recommending Betadine dressing. Also cardiology recommendation is still pending. Podiatry order MRI ankle right foot but unfortunately patient is refusing scan as well. Patient stated that he came to [facility] only to get PermCath placement and he is leaving. He threatened that if he will not get PermCath by 2:00 p.m. he will leave AMA. Patient is refusing Cardiology consultation to evaluate arteries and is also refusing ID consultation for possible osteomyelitis for antibiotics. We will continue to monitor patient in the meantime. A.m. labs 05/24/24 patient was seen by nurse practitioner and physician. Patient underwent PermCath placement 05/23/2024 by IR. Patient was seen by erp project manager and they recommended CTA abdomen aorta with runoff. Patient is refusing. Dr. Merritt was notified by RN. Patient underwent dialysis yesterday 05/23/2024 and 3.1 L was removed after the catheter placed. Patient continues to refuse infectious disease doctor for antibiotic treatment/recommendations. Dr. Kincaid was consulted for amputation as requested by patient. We are pending further evaluation/recommendations. MRI ankle that was ordered yesterday was also refused and patient is still continues to refuse it. We will continue to monitor patient in the meantime. A.m. labs 05/25/24 patient was seen by nurse practitioner and physician during rounding in room 419 sitting in the bed. Patient was evaluated by Dr. Jackson and at this moment patient is pending evaluation of his circulation with a CTA abdominal aorta with a runoff. The exam was already taken just pending results at this moment. Patient is receiving hemodialysis as scheduled by line installation supervisor . Patient continues to receive IV antibiotics vancomycin and cefepime. Per Dr. Horne's recommendation patient will be best served with a minimal of below the knee amputation on the right side due to gangrene and osteomyelitis affecting the posterior heel, posterior ankle on the right. Patient was also seen by the urologist and further recommendations are pending once CT runoff study of the peripheral arterial vasculature will be performed. Today WBC is 11.7 H&H stable. As per count team member surgeon Dr. Montes, further recommendations based on lab and radiology results. We will continue to monitor patient in the meantime. A.m. labs 05/26/24 patient was seen by GREEN [employer] TRAINER and physician during rounding. Patient underwent T come and CT abdomen aorta went runoff which was abnormal. Dr. Merritt ordered AARO Poss PVI RLE, and at this moment patient is denying to do the procedure. Patient stated he would like to talk to erp project manager 1st. Dr. Jackson still continues to recommend surgery. Patient is requesting 2nd opinion Dr. Edmonds will be consulted. Nurse practitioner was able to convince patient to consult Infectious Disease doctor due to right heel culture is growing Enterococcus faecalis, Streptococcus oralis MRSA, Pseudomonas aeruginosa. Nurse practitioner continue vancomycin and started the patient on Merrem, discontinue cefepime. Patient also stated that he does not want to proceed with the surgical intervention of amputation at this moment. he would like to go home on antibiotics and after treatment to re-evaluate if amputations still needed. We will continue to monitor patient in the meantime. A.m. labs] 05/27/24 patient is seen and examined. Apparently patient waiting for 2nd opinion MRI and procedure as recommended by erp project manager's is on hold given to patient has refused and wants a 2nd opinion. REVIEW OF SYSTEMS CONSTITUTIONAL: reports that permacath was dislodged today NEUROLOGICAL: Denies headache, amaurosis fugax, motor weakness, sensory deficit, vertigo/spinning sensation, gait abnormalities, or tremors. ENT: No hearing loss, otalgia, otorrhea, rhinitis, rhinorrhea, hoarseness, or sore throat. CARDIOVASCULAR: Denies any exertional angina, dyspnea on exertion, orthopnea, paroxysmal nocturnal dyspnea, palpitations, life-threatening arrhythmias, claudication. PULMONARY: Denies any shortness of breath, cough, phlegm/sputum, hemoptysis, pleuritic chest pain. SLEEP: Denies morning headaches, daytime somnolence or napping. Denies difficulty falling asleep, staying asleep, waking from sleep. Denies knowledge of snoring. GASTROINTESTINAL: Denies any type of dysphagia to either liquids or solids. Denies nausea, vomiting, pyrosis, early satiety, abdominal pain, diarrhea, constipation, or changes in stool consistency or caliber. Denies coffee-ground emesis, hematemesis, hematochezia, or melanotic stools. GENITOURINARY: Denies frequency, urgency, nocturia, hematuria or incontinence (Storage/Irritative symptoms.) Low urinary stream, straining to void, urinary intermittency or hesitancy, splitting of the voiding stream, terminal dribbling. ENDOCRINOLOGIC: Denies polyuria, polydipsia, polyphagia or heat/cold intolerances. HEMATOLOGIC: Denies thrombophilia/previous clots, or coagulopathy/bleeding disorders. ONCOLOGIC: Denies personal history of malignancy. DERMATOLOGIC: ulcer involving the right foot heel PSYCHIATRIC: Denies any suicidal or homicidal ideation. Denies hallucinations. PHYSICAL EXAM GENERAL APPEARANCE: The patient is awake, alert, and oriented, in no acute cardiopulmonary distress. NEUROLOGICAL: Cranial nerves II-XII grossly intact. Motor is 5/5 in bilateral upper and lower extremities proximal to distal. No sensory deficits. HEENT: Face is symmetric. Pupils are equal and reactive. Extraocular movements are intact. NECK: Supple. No JVD. No thyromegaly. No submental, submandibular, pre- /postauricular, occipital or supraclavicular lymphadenopathy. CHEST: Normal chest expansion. No Telemetry. LUNGS: Absence of any rales, rhonchi or any wheezing. CARDIOVASCULAR: Regular. S1 and S2 normal. No appreciable rubs, murmurs or gallops. ABDOMEN: Soft, nontender, and nondistended. There is no rebound, voluntary guarding, or rigidity. : Deferred. No Hutson. EXTREMITIES: Patient has heel has a large area of eschar with possible necrotic region SKIN: No skin breakdown. Vital Signs (last 8hr) Date Time Temp Pulse Resp B/P (MAP) Pulse Ox O2 Delivery O2 Flow Rate FiO2 05/27/24 09:17 95 Room Air* 0 21 05/27/24 08:00 98.1 65 16 140/59 95 Room Air 05/27/24 04:00 98.4 90 20 123/48 95 Room Air LABS: Laboratory: Test 05/27/24 05:13 05/27/24 04:55 05/26/24 10:51 Range/Units Whole Blood Glucose 342 H 70-110 MG/DL White Blood Count 12.4 H 4.8-10.8 K/uL Red Blood Count 2.34 L 4.50-6.20 MIL/uL Hemoglobin 7.2 L 14.0-18.0 g/dL Hematocrit 22.8 L 42-54 % Mean Corpuscular Volume 97.4 79-99 fL Mean Corpuscular Hemoglobin 30.8 27.0-33.0 pg Mean Corpuscular Hemoglobin Concent 31.6 L 32.0-36.0 g/dL Red Cell Distribution Width 15.7 H 11.0-15.5 % Platelet Count 195 130-400 K/uL Mean Platelet Volume 11.0 H 7.5-10.5 fL Immature Granulocyte % (Auto) 0.6 0-1 % Neutrophils (%) (Auto) 77.5 H 40.0-77.0 % Lymphocytes (%) (Auto) 14.3 L 21.0-51.0 % Monocytes (%) (Auto) 5.9 3.0-13.0 % Eosinophils (%) (Auto) 1.5 0.0-8.0 % Basophils (%) (Auto) 0.2 0.0-5.0 % Neutrophils # (Auto) 9.6 H 1.8-7.7 K/uL Lymphocytes # (Auto) 1.8 1.0-4.8 K/uL Monocytes # (Auto) 0.7 0.1-1.0 K/uL Eosinophils # (Auto) 0.18 0.00-0.70 K/uL Basophils # (Auto) 0.03 0.00-0.20 K/uL Absolute Immature Granulocyte (auto 0.08 0-1 K/uL Nucleated Red Blood Cells 0.0 0.0-0.19 % Sodium Level 138 136-145 mmol/L Potassium Level 4.2 3.5-5.1 mmol/L Chloride Level 101 101-111 mmol/L Carbon Dioxide Level 26 21-32 mmol/L Blood Urea Nitrogen 47 H 7-18 mg/dL Creatinine 6.3 H 0.5-1.3 mg/dL Glomerular Filtration Rate Calc 9 >90 mL/min Random Glucose 342 H 70-105 mg/dL Total Calcium 7.6 L 8.5-10.1 mg/dL Magnesium Level 1.90 1.80-2.40 mg/dL Total Bilirubin 0.4 0.2-1.0 mg/dL Aspartate Amino Transf (AST/SGOT) 8 L 10-37 U/L Alanine Aminotransferase (ALT/SGPT) 6 L 12-78 U/L Alkaline Phosphatase 113 50-136 U/L Total Protein 6.2 6.0-8.3 g/dL Albumin 2.5 L 3.5-5.0 g/dL Bedside Glucose Comment Notified Nurse Current Medications Medications (Trade) Dose Ordered Sig/Idania Route PRN Reason Start Time Stop Time Status Last Admin Dose Admin Acetaminophen (TYLenol 325MG TAB) 650 mg Q6H PRN PO MILD PAIN (1-3) 05/22/24 10:30 06/21/24 10:29 Acetaminophen/ Hydrocodone Bitart (NORco 5/325MG) 1 tab Q8H PRN PO MODERATE PAIN (4-6) 05/22/24 23:00 05/27/24 22:59 05/22/24 22:51 1 TAB Aspirin (Aspirin 81mg Chew Tab) 81 mg DAILY PO 05/23/24 09:00 05/23/24 00:22 DC Aspirin (Aspirin 81mg Chew Tab) 81 mg DAILY PO 05/23/24 17:00 06/22/24 16:59 05/26/24 09:20 81 MG Atorvastatin Calcium (LIPItor 40MG) 40 mg HS PO 05/23/24 21:00 06/22/24 20:59 05/26/24 21:20 40 MG Cefepime HCl (MAXipime 1 GM vial) 1 gm Q24H IVPB 05/22/24 11:00 05/26/24 12:08 DC 05/25/24 10:19 1 GM Clopidogrel Bisulfate (plaVIX 75MG) 75 mg DAILY PO 05/23/24 13:00 05/23/24 00:22 DC Clopidogrel Bisulfate (plaVIX 75MG) 75 mg DAILY PO 05/23/24 17:00 05/23/24 14:21 DC Clopidogrel Bisulfate (plaVIX 75MG) 75 mg DAILY PO 05/24/24 09:00 06/23/24 08:59 2/7/25 09:20 75 MG Heparin Sodium (Porcine) (HEParin 5,000 UNIT VIAL) 10,000 unit AD IRRIG 05/24/24 13:00 06/23/24 12:59 Hydralazine HCl (APRESOLine 20MG INJ) 5 mg Q6H PRN IV ADMINISTER FOR SBP > 160 05/22/24 12:30 06/21/24 12:29 05/22/24 21:19 5 MG Insulin Human Regular (humuLIN R 100 UNIT/ML 3ML) INSULIN SLIDING SCAL... ACHS SQ 05/22/24 11:30 06/21/24 11:29 05/27/24 06:05 7 UNIT Meropenem (Merrem 1gm) 1 gm Q24H IV 05/26/24 14:00 05/26/24 16:30 DC Meropenem (Merrem 1gm) 1 gm Q24H IV 05/26/24 18:00 06/16/24 17:59 Nifedipine (adALAT 30MG) 60 mg Q24H PO 05/22/24 11:00 05/22/24 19:16 DC Nifedipine (adALAT 30MG) 60 mg Q24H PO 05/22/24 19:30 06/21/24 19:29 05/26/24 19:27 60 MG Ondansetron HCl (zoFRAN 4MG INJ) 4 mg Q6H PRN IVP NAUSEA/VOMITING 05/22/24 10:30 06/21/24 10:29 Pantoprazole Sodium (PROTonix 40MG TAB) 40 mg DAILY PO 05/23/24 09:00 06/22/24 08:59 05/26/24 09:19 40 MG Pharmacy Profile Note (Pharmacy Communication) 1 each ONCE MISC 05/22/24 11:00 05/22/24 10:57 DC Prednisone (deltaSONE/ oraSONE 5MG) 5 mg BID PO 05/22/24 21:00 06/21/24 20:59 05/26/24 21:21 5 MG Vancomycin HCl (Vancomycin 750mg) 750 mg QMOWEFR[DIALYSIS] IVPB 05/26/24 16:00 05/26/24 17:33 DC Vancomycin HCl (Vancomycin 750mg) 750 mg QMOWEFR[DIALYSIS] IVPB 05/27/24 16:00 06/06/24 15:59 Vancomycin HCl (Vancomycin Protocol) 1 each AD IV 05/22/24 11:00 06/05/24 10:59 Vitamin B Complex/ Vit C/Folic Acid (Nephrovite Tablet) 1 cap DAILY PO 05/23/24 09:00 06/22/24 08:59 05/25/24 10:19 1 CAP DIAGNOSTICS / RADIOLOGY: [ ] ASSESSMENT: Dislodged PermCath, POA s/p PermCath placement 05/23/2024 by IR History of ESRD on home hemodialysis therapy, POA osteomyelitis per foot x-ray 05/22/2024 Right heel culture growing Enterococcus faecalis, Streptococcus MRSA, Pseudomonas aeruginosa 05/22/2024 Chronic leukocytosis, POA Underlying immunosuppression on outpatient treatment with steroids and Remicade, POA Nonhealing diabetic foot ulcer/heel ulcer with associated deep eschar/necrotic region, being followed by Dr. Jackson as outpatient, POA Anemia of renal disease, POA Underlying history of type 2 diabetes mellitus, POA History of chronic prednisone use as outpatient, POA Uncontrolled Hypertension, POA Hyperlipidemia, POA History of peripheral arterial disease, POA Prior history of angioplasty to right popliteal artery and distal SFA by Dr. Arzate on 01/24/2024, POA History penicillin allergy, POA Noncompliance PLAN: Admit to: Medical-surgical with telemetry Consults: Medical Data Analyst: Dr Jackson, erp project manager DR Crabtree , line installation supervisor DR Mera , surgeon , ID patient agreed to consult ID, 2nd opinion Dr. Edmonds consulted Antibiotics: Vancomycin, IV Merrem IV ID on board Tests: MRI ankle right foot which patient is refusing. Procedure: AARO Poss PVI RLE ordered by erp project manager. At this moment patient is refusing. Labs in a.m. CBC CMP magnesium will add flammatory markers. Continue dialysis3 times a week via PermCath. Avoid NSAIDs renal dose medication, fluid restriction daily weight Continue a.c. HS monitoring with sliding scale coverage Supportive measures DVT GI prophylaxis Pain management for adequate pain control All questions addressed Further orders as per response to treatment ATTESTATION BY PHYSICIAN I have seen and examined the patient. I reviewed the documentation, medical decision making, and treatment plan as noted by the mid-level provider above. I agree with the findings and plan of care. BhadriJennifer coburn MD, ELIZABETH NP May 27, 2024 09:37
--- NOTE | 2024-05-27 10:18 | PN ---
PROGRESS NOTE Date of Service: May 27, 2024 Time of Service: 10:17 SUBJECTIVE: No new concerns. Denies fever chills and pain. Examined at bedside. hemodialysis today REVIEW OF SYSTEMS CONSTITUTIONAL: Denies fever, chills, or fatigue. HEAD/FACE: No signs of trauma. EENT: Denies eye pain, blurred vision, double vision, or light sensitivity. RESPIRATORY: Denies shortness of breath, cough, wheezing CARDIOVASCULAR: Denies chest pain, palpitation, syncope GASTROINTESTINAL/ABDOMINAL: Denies abdominal pain, constipation, diarrhea, nausea or vomiting GENITOURINARY: Denies dysuria or hematuria. MUSCULOSKELETAL: Denies joint pain, tenderness, or trauma. INTEGUMENTARY: Denies rash or itchiness NEUROLOGICAL/PSYCH: Denies anxiety, depression, heat or cold intolerance. PHYSICAL EXAM EYES: Anicteric. Pupils equal and reactive. HENT: No oral thrush seen, moist Oral mucosa NECK: Supple, no JVD or thyromegaly. LUNGS: Good air entry. No rales, no rhonchi. CARDIOVASCULAR: S1, S2 regular. No murmur heard. ABDOMEN: Soft, non tender, bowel sounds present, no organomegaly CENTRAL NERVOUS SYSTEM: Awake, alert, oriented x 3. No focal deficits. SKIN: No rashes, no swelling. LYMPHATICS: No peripheral lymphadenopathy MUSCULOSKELETAL: No joint swelling, erythema or tenderness. EXTREMITIES: No cyanosis or clubbing BACK: No deformity, no pressure ulcer. GENITOURINARY: No dysuria or hematuria Vital Signs (last 8hr) Date Time Temp Pulse Resp B/P (MAP) Pulse Ox O2 Delivery O2 Flow Rate FiO2 05/27/24 09:17 95 Room Air* 0 21 05/27/24 08:00 98.1 65 16 140/59 95 Room Air 05/27/24 04:00 98.4 90 20 123/48 95 Room Air LABS: Laboratory: Test 05/27/24 05:13 05/27/24 04:55 05/26/24 10:51 Range/Units Whole Blood Glucose 342 H 70-110 MG/DL White Blood Count 12.4 H 4.8-10.8 K/uL Red Blood Count 2.34 L 4.50-6.20 MIL/uL Hemoglobin 7.2 L 14.0-18.0 g/dL Hematocrit 22.8 L 42-54 % Mean Corpuscular Volume 97.4 79-99 fL Mean Corpuscular Hemoglobin 30.8 27.0-33.0 pg Mean Corpuscular Hemoglobin Concent 31.6 L 32.0-36.0 g/dL Red Cell Distribution Width 15.7 H 11.0-15.5 % Platelet Count 195 130-400 K/uL Mean Platelet Volume 11.0 H 7.5-10.5 fL Immature Granulocyte % (Auto) 0.6 0-1 % Neutrophils (%) (Auto) 77.5 H 40.0-77.0 % Lymphocytes (%) (Auto) 14.3 L 21.0-51.0 % Monocytes (%) (Auto) 5.9 3.0-13.0 % Eosinophils (%) (Auto) 1.5 0.0-8.0 % Basophils (%) (Auto) 0.2 0.0-5.0 % Neutrophils # (Auto) 9.6 H 1.8-7.7 K/uL Lymphocytes # (Auto) 1.8 1.0-4.8 K/uL Monocytes # (Auto) 0.7 0.1-1.0 K/uL Eosinophils # (Auto) 0.18 0.00-0.70 K/uL Basophils # (Auto) 0.03 0.00-0.20 K/uL Absolute Immature Granulocyte (auto 0.08 0-1 K/uL Nucleated Red Blood Cells 0.0 0.0-0.19 % Sodium Level 138 136-145 mmol/L Potassium Level 4.2 3.5-5.1 mmol/L Chloride Level 101 101-111 mmol/L Carbon Dioxide Level 26 21-32 mmol/L Blood Urea Nitrogen 47 H 7-18 mg/dL Creatinine 6.3 H 0.5-1.3 mg/dL Glomerular Filtration Rate Calc 9 >90 mL/min Random Glucose 342 H 70-105 mg/dL Total Calcium 7.6 L 8.5-10.1 mg/dL Magnesium Level 1.90 1.80-2.40 mg/dL Total Bilirubin 0.4 0.2-1.0 mg/dL Aspartate Amino Transf (AST/SGOT) 8 L 10-37 U/L Alanine Aminotransferase (ALT/SGPT) 6 L 12-78 U/L Alkaline Phosphatase 113 50-136 U/L Total Protein 6.2 6.0-8.3 g/dL Albumin 2.5 L 3.5-5.0 g/dL Bedside Glucose Comment Notified Nurse DIAGNOSTICS / RADIOLOGY: POLE PEELER PROCEDURE REQUEST REASON: DISLODGED PERMACATH. COMPARISON: None TECHNIQUE: Fluoroscopic guidance with placement of left internal jugular-right atrial tunneled Duramax dialysis catheter. FINDINGS: The right internal jugular vein is occluded at the junction with the superior vena cava and right subclavian vein. Left internal jugular vein is patent. PROCEDURE: Informed consent obtained the patient following explanation of risk, benefits, complications. Timeout performed by nursing staff. Continuous monitoring was performed of the patient during the procedure I nursing personnel including cardiovascular status, oxygenation, respiration. Patient received intravenous titrated doses of Versed and fentanyl during the procedure administered by nursing personnel. Right neck and left neck were prepped and draped in sterile fashion. Ultrasound of the right neck demonstrates large amount thrombus within the proximal internal jugular vein. Following local anesthesia with 1% lidocaine, access gained into the right internal jugular vein under direct ultrasound guidance. Guidewire could not be passed beyond the area of obstruction at the junction with the SVC. This site was abandoned and attention was made to the left internal jugular venous access site. Following local anesthesia with 1% lidocaine subcutaneous, needle access into the left internal jugular vein obtained with ultrasound guidance. Fine guidewire placement, microcatheter access was passed over the guidewire. J-wire was then passed through the sheath in past the right atrium into the inferior vena cava. Fashion dilatation performed, tunneled Duramax catheter 32 cm in length, was passed over guidewire and the tip of the catheter positioned within the right atrium. Both ports were flushed, aspirated, flushed, heparinized, capped, clamped. Catheter secured to the skin with retention suture and sterile dressing. Patient tolerated procedure well without evidence of comp occasions. Total fluoroscopic time: 3.7 minutes. Estimated blood loss: Less than 8 ml. IMPRESSION: Placement of 32 cm tunneled Duramax dialysis catheter with the tip positioned within the right atrium. Access from the left internal jugular vein. Catheter is ready for immediate use. ASSESSMENT: ESRD DM2 with nephropathy HTN with renal manifestation Hyperkalemia Anemia of CKD PLAN: HD today, TTS Monitor Electrolytes Renal Diet CHEPE as per protocol with HD treatments Continue home medications LALITHA KOCH May 27, 2024 10:18
[2024-05-27] MEDS: 0.9%NACL 1000ML 1,000 ML IV SCH (11:49)
--- NOTE | 2024-05-27 12:27 | PN ---
SUBJECTIVE: The patient is a very pleasant, 59-year-old, diabetic, Latin-[place] Islander male, followed for gangrene and osteomyelitis to his right heel and right lower extremity peripheral vascular disease. He is helped by the Cardiology Service. He has severe peripheral vascular disease but does have adequate circulation to heal a [id number]-[id number] amputation on that right side. He has a T-max of 98.1. He has a blood pressure of 140/59. He has a pulse of 65 and respiration of 16. He has a white count of 12.4. H and H 7.2 and 22.8. He is currently receiving IV meropenem and vancomycin. The patient is without complaints of pain. The patient has requested a second opinion with Dr. Edmonds. The patient has a consult placed for Infectious Disease due to cultures that grew back Enterococcus faecalis, Streptococcus, MRSA, and Pseudomonas aeruginosa. The patient was on vancomycin and Merrem. The patient states he would like to go home on antibiotics, and be reevaluated for amputation surgery at a later date. REVIEW OF SYSTEMS: CONSTITUTIONAL: No chills, no fevers, no night sweats, no nausea, vomiting, no diarrhea. HEENT: No problems with eyes, ears, nose, or throat. CARDIOVASCULAR: No current chest pain. RESPIRATORY: No shortness of breath. GENITOURINARY: End-stage renal disease, currently receiving hemodialysis. GASTROINTESTINAL: No dysphagia. ENDOCRINE: Diabetes. PSYCHIATRIC: Denied any depression. MUSCULOSKELETAL: The patient has a Chopart's level amputation on the right. INTEGUMENT: He has a fibronecrotic, foul smelling, putrid wound with a black liquefaction and hemorrhagic necrosis of the tissues to the posterior aspect of the right heel in an area of 8 x 8 cm with exposed bone of the calcaneus. On exam, nonpalpable pedal pulses on the right Lisfranc's amputation site. Putrid foul smelling black, liquefaction necrosis of the tissues in an area of 8 x 8 cm to posterior aspect of the right heel with exposure of the Achilles tendon and exposure of the calcaneus. ASSESSMENT: Infected, necrotic posterior heel ulcer, polymicrobial wound infection. The patient is receiving Merrem and vancomycin. Chronic osteomyelitis. The patient's cultures: Staph aureus, methicillin-resistant Staphylococcus aureus, and pseudomonas, for which he is receiving the intravenous vancomycin and intravenous cefepime. The patient is also growing back Enterococcus faecalis and Prevotella species. PLAN: The patient is requesting a second opinion regarding surgical intervention. The patient has stated that he wants to go home and have surgery at a later date if necessary. He wants to be released with the antibiotics. Apparently, he is agreeable to be seen by Infectious Disease now. We will continue with Betadine dressings with offloading measures and broad-spectrum antibiotics. I informed the patient that he is at an extremely high risk of developing sepsis due to the polymicrobial wound infection and necrotic nature of the wound and his peripheral vascular disease. We will continue to follow the patient closely while in-house. TID: [id number] RECEIPT: [id number]
[2024-05-27] MEDS: VANCOMYCIN 750MG VIAL IVPB SCH (15:33)
[2024-05-27] MEDS: INSULIN humuLIN R 100 UNIT/ML 3ML SQ SCH (17:13)
[2024-05-28] VITALS (9 sets, daily range): BP systolic 125–149; BP diastolic 55–83; PULSE 61–106; RESP 18–20; TEMP 97.7–98.6; O2SAT 98–99
--- NOTE | 2024-05-28 08:58 | PN ---
SUBJECTIVE: The patient is a very pleasant 59-year-old diabetic, Latin-Citizen Of [place] male who is followed up for gangrene and osteomyelitis to his right heel area, exposed Achilles tendon, exposed calcaneus, polymicrobial wound infection. Recommendations have been made for a rcojh-uyk-dobe amputation on the left. The patient is currently receiving IV vancomycin and Merrem. He has had a polymicrobial wound infection with Prevotella species, enterococcus faecalis, Staph aureus, MRSA and pseudomonas aeruginosa. Blood cultures, no growth x 5 days. The patient is concerned of pain to the right foot. He is awaiting evaluation for a lower extremity amputation due to his gangrene and osteomyelitis. The patient is requesting to be discharged home. They recommend the patient stay in the hospital and proceed with a lower extremity amputation on that right side due to the gangrene and the osteomyelitis and the polymicrobial wound infection. The patient had arterial Doppler studies, which showed no significant circulation below the ankle on that right side. The patient is being followed by the Cardiology Service. The patient is currently afebrile at 98.4, pulse 89, respirations 19, blood pressure 149/77. He has a white count that is 12.4, H and H 7.2 and 22.8, platelets 195. He has a BUN and a creatinine level 47 and 6.3. He has end-stage renal disease, currently receiving hemodialysis. REVIEW OF SYSTEMS: CONSTITUTIONAL: No chills, no fevers, no night sweats, no nausea, vomiting, no diarrhea. HEENT: No problems with eyes, ears, nose or throat. CARDIOVASCULAR: He has no current chest pain. He has severe right lower extremity peripheral vascular disease. No significant circulation below the ankle on the right. The patient is being followed by the Cardiology Service. RESPIRATORY: No shortness of breath. GENITOURINARY: End-stage renal disease, currently receiving hemodialysis. GASTROINTESTINAL: No dysphagia. ENDOCRINE: Diabetes. PSYCHIATRIC: Denied any depression. 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 INTEGUMENT: He has fibronecrotic foul smelling putrid wound with a black eschar, hemorrhagic necrosis of tissues to the posterior ankle, exposed bone of the calcaneus, exposed bone of the Achilles tendon. ASSESSMENT: Infected necrotic posterior heel ulcer with osteomyelitis, polymicrobial wound infection, receiving Merrem and vancomycin. Chronic osteomyelitis. The patient's cultures, Staph aureus, methicillin-resistant Staph aureus, pseudomonas enterococcus faecalis. He is receiving IV vancomycin and IV cefepime. PLAN: My recommendations the patient proceed with lower extremity amputation due to gangrene and osteomyelitis on the right. Continue with the Merrem and vancomycin. Continue with Betadine dressings. Continue with hemodialysis support. TID: [id number] RECEIPT: [id number]
--- NOTE | 2024-05-28 10:16 | PN ---
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 Jackson. He i s status post a remote right [facility] and began having some difficulties with his right heel ulcer approximately December of 2023. He was found to have a polymicrobial infection with Enterococcus faecalis, Pseudomonas aeruginosa and has undergone management as an outpatient including a short stay at [facility]. He also underwent successful IVUS guided, shockwave and BELT MACHINE OPERATOR DCB of the right popliteal (4 x 80 mm DCB) and distal SFA (5 x 40 mm DCB) with holiness of brisk three-vessel runoff to the right foot on 01/23/2025. It appears he has been noncompliant with dual antiplatelet therapy post peripheral intervention. He has been managed for possible osteomyelitis at the TMA site by Dr. Jackson. The patient is pending a 2nd opinion from Dr. Edmonds before proceeding with either right lower extremity amputation or proceeding with repeat right lower extremity peripheral angiogram and possible intervention. No acute events overnight. Awaiting 2nd opinion from Dr. Edmonds. Physical Examination: GENERAL: No acute distress. HEAD: Normal with no signs of head trauma. EYES: PERRLA, EOMI, conjunctiva and sclera normal. NECK: Supple without JVD. There is no tenderness, lymphadenopathy, or masses. No thyromegaly. Normal carotid upstrokes without bruits. LUNGS: Clear breath sounds bilaterally. No wheezes, or rhonchi. HEART: Normal rate and rhythm. Normal S1 and S2 without murmurs, gallop or rub. VASC: Right TMA site is with dressing, left lower extremity has hyperpigmentation and pedal pulses are not palpable. The left foot is warm and appears well perfused and there are no open lesions or areas to suggest rest ischemia.] EXT: No clubbing, cyanosis or edema. NEURO: Awake, alert, and oriented x3. No focal neurological deficits noted. Laboratory: Hematology Labs: Test 05/27/24 04:55 Range/Units White Blood Count 12.4 H 4.8-10.8 K/uL Red Blood Count 2.34 L 4.50-6.20 MIL/uL Hemoglobin 7.2 L 14.0-18.0 g/dL Hematocrit 22.8 L 42-54 % Mean Corpuscular Volume 97.4 79-99 fL Mean Corpuscular Hemoglobin 30.8 27.0-33.0 pg Mean Corpuscular Hemoglobin Concent 31.6 L 32.0-36.0 g/dL Red Cell Distribution Width 15.7 H 11.0-15.5 % Platelet Count 195 130-400 K/uL Mean Platelet Volume 11.0 H 7.5-10.5 fL Immature Granulocyte % (Auto) 0.6 0-1 % Neutrophils (%) (Auto) 77.5 H 40.0-77.0 % Lymphocytes (%) (Auto) 14.3 L 21.0-51.0 % Monocytes (%) (Auto) 5.9 3.0-13.0 % Eosinophils (%) (Auto) 1.5 0.0-8.0 % Basophils (%) (Auto) 0.2 0.0-5.0 % Neutrophils # (Auto) 9.6 H 1.8-7.7 K/uL Lymphocytes # (Auto) 1.8 1.0-4.8 K/uL Monocytes # (Auto) 0.7 0.1-1.0 K/uL Eosinophils # (Auto) 0.18 0.00-0.70 K/uL Basophils # (Auto) 0.03 0.00-0.20 K/uL Absolute Immature Granulocyte (auto 0.08 0-1 K/uL Nucleated Red Blood Cells 0.0 0.0-0.19 % Chemistry Labs: Test 05/28/24 05:20 05/27/24 04:55 05/26/24 10:51 Range/Units Whole Blood Glucose 346 H 70-110 MG/DL Sodium Level 138 136-145 mmol/L Potassium Level 4.2 3.5-5.1 mmol/L Chloride Level 101 101-111 mmol/L Carbon Dioxide Level 26 21-32 mmol/L Blood Urea Nitrogen 47 H 7-18 mg/dL Creatinine 6.3 H 0.5-1.3 mg/dL Glomerular Filtration Rate Calc 9 >90 mL/min Random Glucose 342 H 70-105 mg/dL Total Calcium 7.6 L 8.5-10.1 mg/dL Magnesium Level 1.90 1.80-2.40 mg/dL Total Bilirubin 0.4 0.2-1.0 mg/dL Aspartate Amino Transf (AST/SGOT) 8 L 10-37 U/L Alanine Aminotransferase (ALT/SGPT) 6 L 12-78 U/L Alkaline Phosphatase 113 50-136 U/L Total Protein 6.2 6.0-8.3 g/dL Albumin 2.5 L 3.5-5.0 g/dL Bedside Glucose Comment Notified Nurse Diagnostics / Radiology: CT angiogram of the lower extremities 05/25/2024: Findings: The vascular examination is abnormal. There is atheromatous disease of the common iliac arteries, the distal abdominal aorta, the superficial femoral arteries, popliteal arteries. All are patent and so are the trifurcations bilaterally. Segmental occlusions of the anterior tibial artery seen bilaterally, both occluded at or above the ankle level. Interosseous arteries are occluded above the ankle level and the runoff is provided by severely limited posterior tibial arteries bilaterally. There is no aortic aneurysm. There is no occlusion. There is no dissection. There is no extravasation to suggest laceration or rupture. No evidence of nephro or ureterolithiasis is found. No hydronephrosis or ureteral dilatation is seen. The visualized portion of the stomach is unremarkable. It shows no wall thickening. No gross ulceration is seen. It is not overly distended. There are no surrounding inflammatory changes. No wall lesions are identified to suggest cancer. The visualized portion of the spleen is unremarkable. It is not enlarged. The pancreas shows normal anatomy. It is not fatty replaced. It shows no lesions. The pancreatic duct is not dilated. The gallbladder is unremarkable. It shows no cholelithiasis. The gallbladder wall is normal in thickness. There is no pericholecystic fluid. The is no acute or chronic inflammation noted. The adrenal glands are unremarkable. There is no enlargement. No lesions are noted. The visualized portion of the liver is unremarkable. It shows no focal masses. The appendix is unremarkable. It shows no evidence of inflammation. No appendicolith is seen. The small bowel is unremarkable. There is no evidence of dilatation to suggest obstruction. No evidence of adynamic ileus is seen. There is no small bowel wall thickening to suggest enteritis. The colon is unremarkable. The urinary bladder is unremarkable. There is no wall thickening to suggest tumor or inflammation. There are no intraluminal calculi. There are no diverticula. There is no evidence of chronic bladder outlet obstruction. There is no evidence of urinary bladder distention to suggest urinary retention. The other pelvic structures are unremarkable. The bony and vascular structures are unremarkable for the patient's age. IMPRESSION: The vascular examination is abnormal. There is atheromatous disease of the common iliac arteries, the distal abdominal aorta, the superficial femoral arteries, popliteal arteries. All are patent and so are the trifurcations bilaterally. Segmental occlusions of the anterior tibial artery seen bilaterally, both occluded at or above the ankle level. Interosseous arteries are occluded above the ankle level and the runoff is provided by severely limited posterior tibial arteries bilaterally. Impression and Plan: Peripheral artery disease Chronic nonhealing right heel wound with possible osteomyelitis at the TMA site Status post prior successful IVUS guided shockwave and BELT MACHINE OPERATOR/DCB of the right popliteal (4 x 80 mm DCB) and distal SFA (5 x 40 mm DCB) with holiness of brisk three-vessel runoff on 01/23/2025, noncompliance with outpatient dual antiplatelet therapy postprocedure: CT angiogram with lower extremity runoff 05/25/2024 demonstrated patent vasculature at the prior peripheral intervention site but infrapopliteal disease with evidence of occluded anterior tibial and peroneal arteries and possible severe disease of the BELT MACHINE OPERATOR: -continue antibiotic therapy -pending 2nd opinion from Dr. Edmonds prior to final decision regarding proceeding with right lower extremity amputation versus right lower extremity peripheral angiogram and attempts at revascularization: -continue dual antiplatelet therapy with aspirin 81 mg p.o. daily, clopidogrel 75 mg p.o. daily and continue atorvastatin 40 mg p.o. daily -patient will be kept NPO after midnight pending decision which way to proceed regarding his management Comorbidities: Probable nonobstructive coronary artery disease with CT coronary calcium score of 87 on 06/2021 Hypertension Type 2 diabetes mellitus with renal and circulatory manifestations End-stage renal disease on chronic hemodialysis Anemia of chronic disease History of psoriasis on immunosuppressive therapy with Remicade and steroid therapy PHYSICIAN ATTESTATION OF PHYSICIAN [employer] SALES DOCUMENTATION: I attest that I was physically present for the zuniga portions of the service and evaluated the patient with the Physician Sericulturist, and I reviewed and discussed the case with the Physician Sericulturist and made modifications to the Physician Sericulturist's findings and plans of care as documented above CESAR NORMAN May 28, 2024 10:16 SYDNEE ROBLES MD May 28, 2024 15:11
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
--- NOTE | 2024-05-28 11:51 | PN ---
[facility] PROGRESS NOTE Date of Service: May 28, 2024 Time of Service: 11:42 SUBJECTIVE: [ 05[birth year]23 59-year-old male with underlying history of hypertension, hyperlipidemia, peripheral arterial disease, type 2 diabetes mellitus, ESRD on chronic home hemodialysis of Wednesday, Wednesday, Wednesday, history of chronic diabetic foot ulcer of the right heel being followed by Podiatry as outpatient, psoriasis on chronic outpatient steroids and Remicade infusion who presented to the ER after his PermCath for hemodialysis was dislodged. Dislodgement happened on Wednesday and patient decided to come to the ER today for further evaluation. Patient states that similar episode has happened about six months ago and patient had PermCath placed by IR. Patient denies any fevers or chills. Reports that he is due for home hemodialysis today. He has a history of chronic diabetic foot/ heel ulcer being followed by Dr. Jakcson as outpatient. He was seen by Dr. Jackson recently and has been taking oral outpatient antibiotics with doxycycline. He is supposed to see Dr. Mata with Infectious Disease on 05/26/2024 given persistent nonresolving infection. Patient was hospitalized in [facility] on 12/2023 after he was found to have cellulitis involving the TMA site of the right foot along with heel ulcer. Patient was found to have polymicrobial infection with Enterococcus faecalis, Pseudomonas aeruginosa and Bacteroides. He underwent debridement and wound VAC placement and was eventually discharged to [facility] [address]. Patient was also seen by Cardiology a nd underwent peripheral angiogram with findings of severe right lower extremity PAD and patient underwent angioplasty of the right popliteal and distal SFA by Dr. Arzate. He was supposed to be on dual antiplatelet therapy with aspirin and Plavix but patient states that he has not taken either aspirin or Plavix after discharge from [facility]. On presentation to the hospital, patient was noted to be afebrile and hemodynamically stable. EKG showed normal sinus rhythm. chest x-ray showed no pulmonary edema. [place] [address], hemoglobin of 8.2, platelet count of 250,000. Patient initially stated that he did not want to be admitted and wanted IR to change catheter and be discharged home. But after further discussion, he is agreeable to be admitted for further evaluation by Dr. Jackson with regards to nonhealing ulcer/eschar of the right foot. we will rule out any active cellulitis and patient will be started on broad-spectrum antibiotics. Blood cultures will be obtained. Consultation with IR will be obtained as well for placement of PermCath. We will see how patient progresses. Patient has significant PAD, patient may need Cardiology evaluation as well as he has been off dual antiplatelet therapy for several months now. 05/23/23 patient was seen by nurse practitioner and physician during rounding in room 419. at the bedside. Per RN patient has been refusing labs that were ordered for PermCath placement. Patient has no access for dialysis at this moment. Patient was evaluated by Dr. Jackson and that is recommending Betadine dressing. Also cardiology recommendation is still pending. Podiatry order MRI ankle right foot but unfortunately patient is refusing scan as well. Patient stated that he came to [facility] only to get PermCath placement and he is leaving. He threatened that if he will not get PermCath by 2:00 p.m. he will leave AMA. Patient is refusing Cardiology consultation to evaluate arteries and is also refusing ID consultation for possible osteomyelitis for antibiotics. We will continue to monitor patient in the meantime. A.m. labs 05/24/24 patient was seen by nurse practitioner and physician. Patient underwent PermCath placement 05/23/2024 by IR. Patient was seen by flat breakdown processor and they recommended CTA abdomen aorta with runoff. Patient is refusing. Dr. Merritt was notified by RN. Patient underwent dialysis yesterday 05/23/2024 and 3.1 L was removed after the catheter placed. Patient continues to refuse infectious disease doctor for antibiotic treatment/recommendations. Dr. Kincaid was consulted for amputation as requested by patient. We are pending further evaluation/recommendations. MRI ankle that was ordered yesterday was also refused and patient is still continues to refuse it. We will continue to monitor patient in the meantime. A.m. labs 05/25/24 patient was seen by nurse practitioner and physician during rounding in room 419 sitting in the bed. Patient was evaluated by Dr. Jackson and at this moment patient is pending evaluation of his circulation with a CTA abdominal aorta with a runoff. The exam was already taken just pending results at this moment. Patient is receiving hemodialysis as scheduled by senior mechanical project engineer . Patient continues to receive IV antibiotics vancomycin and cefepime. Per Dr. Horne's recommendation patient will be best served with a minimal of below the knee amputation on the right side due to gangrene and osteomyelitis affecting the posterior heel, posterior ankle on the right. Patient was also seen by the urologist and further recommendations are pending once CT runoff study of the peripheral arterial vasculature will be performed. Today WBC is 11.7 H&H stable. As per nuclear engineering technician surgeon Dr. Montes, further recommendations based on lab and radiology results. We will continue to monitor patient in the meantime. A.m. labs 05/26/24 patient was seen by DIRECTOR DATA ANALYTICS and physician during rounding. Patient underwent T come and CT abdomen aorta went runoff which was abnormal. Dr. Merritt ordered AARO Poss PVI RLE, and at this moment patient is denying to do the procedure. Patient stated he would like to talk to flat breakdown processor 1st. Dr. Jackson still continues to recommend surgery. Patient is requesting 2nd opinion Dr. Edmonds will be consulted. Nurse practitioner was able to convince patient to consult Infectious Disease doctor due to right heel culture is growing Enterococcus faecalis, Streptococcus oralis MRSA, Pseudomonas aeruginosa. Nurse practitioner continue vancomycin and started the patient on Merrem, discontinue cefepime. Patient also stated that he does not want to proceed with the surgical intervention of amputation at this moment. he would like to go home on antibiotics and after treatment to re-evaluate if amputations still needed. We will continue to monitor patient in the meantime. A.m. labs] 05/27/24 patient is seen and examined. Apparently patient waiting for 2nd opinion MRI and procedure as recommended by flat breakdown processor's is on hold given to patient has refused and wants a 2nd opinion. 05/28/24 patient is seen and examined was followed by nuclear engineering technician for 2nd opinion. Recommendations amputation Dr. Arevalo was consulted. Patient is fully awake alert oriented x3. REVIEW OF SYSTEMS CONSTITUTIONAL: reports that permacath was dislodged today NEUROLOGICAL: Denies headache, amaurosis fugax, motor weakness, sensory defic it, vertigo/spinning sensation, gait abnormalities, or tremors. ENT: No hearing loss, otalgia, otorrhea, rhinitis, rhinorrhea, hoarseness, or sore throat. CARDIOVASCULAR: Denies any exertional angina, dyspnea on exertion, orthopnea, paroxysmal nocturnal dyspnea, palpitations, life-threatening arrhythmias, claudication. PULMONARY: Denies any shortness of breath, cough, phlegm/sputum, hemoptysis, pleuritic chest pain. SLEEP: Denies morning headaches, daytime somnolence or napping. Denies difficulty falling asleep, staying asleep, waking from sleep. Denies knowledge of snoring. GASTROINTESTINAL: Denies any type of dysphagia to either liquids or solids. Denies nausea, vomiting, pyrosis, early satiety, abdominal pain, diarrhea, constipation, or changes in stool consistency or caliber. Denies coffee-ground emesis, hematemesis, hematochezia, or melanotic stools. GENITOURINARY: Denies frequency, urgency, nocturia, hematuria or incontinence (Storage/Irritative symptoms.) Low urinary stream, straining to void, urinary intermittency or hesitancy, splitting of the voiding stream, terminal dribbling. ENDOCRINOLOGIC: Denies polyuria, polydipsia, polyphagia or heat/cold intolerances. HEMATOLOGIC: Denies thrombophilia/previous clots, or coagulopathy/bleeding disorders. ONCOLOGIC: Denies personal history of malignancy. DERMATOLOGIC: ulcer involving the right foot heel PSYCHIATRIC: Denies any suicidal or homicidal ideation. Denies hallucinations. PHYSICAL EXAM GENERAL APPEARANCE: The patient is awake, alert, and oriented, in no acute cardiopulmonary distress. NEUROLOGICAL: Cranial nerves II-XII grossly intact. Motor is 5/5 in bilateral upper and lower extremities proximal to distal. No sensory deficits. HEENT: Face is symmetric. Pupils are equal and reactive. Extraocular movements are intact. NECK: Supple. No JVD. No thyromegaly. No submental, submandibular, pre- /postauricular, occipital or supraclavicular lymphadenopathy. CHEST: Normal chest expansion. No Telemetry. LUNGS: Absence of any rales, rhonchi or any wheezing. CARDIOVASCULAR: Regular. S1 and S2 normal. No appreciable rubs, murmurs or gallops. ABDOMEN: Soft, nontender, and nondistended. There is no rebound, voluntary guarding, or rigidity. : Deferred. No Hutson. EXTREMITIES: Patient has heel has a large area of eschar with possible necrotic region SKIN: No skin breakdown. Vital Signs (last 8hr) Date Time Temp Pulse Resp B/P (MAP) Pulse Ox O2 Delivery O2 Flow Rate FiO2 2/9/25 09:15 98 Room Air* 0 21 05/28/24 08:15 97.7 97 19 138/71 98 Room Air 05/28/24 04:00 98.4 89 19 149/77 94 Room Air LABS: Laboratory: Test 05/28/24 10:52 05/27/24 04:55 Range/Units Whole Blood Glucose 106 # 70-110 MG/DL White Blood Count 12.4 H 4.8-10.8 K/uL Red Blood Count 2.34 L 4.50-6.20 MIL/uL Hemoglobin 7.2 L 14.0-18.0 g/dL Hematocrit 22.8 L 42-54 % Mean Corpuscular Volume 97.4 79-99 fL Mean Corpuscular Hemoglobin 30.8 27.0-33.0 pg Mean Corpuscular Hemoglobin Concent 31.6 L 32.0-36.0 g/dL Red Cell Distribution Width 15.7 H 11.0-15.5 % Platelet Count 195 130-400 K/uL Mean Platelet Volume 11.0 H 7.5-10.5 fL Immature Granulocyte % (Auto) 0.6 0-1 % Neutrophils (%) (Auto) 77.5 H 40.0-77.0 % Lymphocytes (%) (Auto) 14.3 L 21.0-51.0 % Monocytes (%) (Auto) 5.9 3.0-13.0 % Eosinophils (%) (Auto) 1.5 0.0-8.0 % Basophils (%) (Auto) 0.2 0.0-5.0 % Neutrophils # (Auto) 9.6 H 1.8-7.7 K/uL Lymphocytes # (Auto) 1.8 1.0-4.8 K/uL Monocytes # (Auto) 0.7 0.1-1.0 K/uL Eosinophils # (Auto) 0.18 0.00-0.70 K/uL Basophils # (Auto) 0.03 0.00-0.20 K/uL Absolute Immature Granulocyte (auto 0.08 0-1 K/uL Nucleated Red Blood Cells 0.0 0.0-0.19 % Sodium Level 138 136-145 mmol/L Potassium Level 4.2 3.5-5.1 mmol/L Chloride Level 101 101-111 mmol/L Carbon Dioxide Level 26 21-32 mmol/L Blood Urea Nitrogen 47 H 7-18 mg/dL Creatinine 6.3 H 0.5-1.3 mg/dL Glomerular Filtration Rate Calc 9 >90 mL/min Random Glucose 342 H 70-105 mg/dL Total Calcium 7.6 L 8.5-10.1 mg/dL Magnesium Level 1.90 1.80-2.40 mg/dL Total Bilirubin 0.4 0.2-1.0 mg/dL Aspartate Amino Transf (AST/SGOT) 8 L 10-37 U/L Alanine Aminotransferase (ALT/SGPT) 6 L 12-78 U/L Alkaline Phosphatase 113 50-136 U/L Total Protein 6.2 6.0-8.3 g/dL Albumin 2.5 L 3.5-5.0 g/dL Current Medications Medications (Trade) Dose Ordered Sig/Idania Route PRN Reason Start Time Stop Time Status Last Admin Dose Admin Acetaminophen (TYLenol 325MG TAB) 650 mg Q6H PRN PO MILD PAIN (1-3) 05/22/24 10:30 06/21/24 10:29 Acetaminophen/ Hydrocodone Bitart (NORco 5/325MG) 1 tab Q8H PRN PO MODERATE PAIN (4-6) 05/22/24 23:00 05/27/24 22:59 DC 05/22/24 22:51 1 TAB Aspirin (Aspirin 81mg Chew Tab) 81 mg DAILY PO 05/23/24 09:00 05/23/24 00:22 DC Aspirin (Aspirin 81mg Chew Tab) 81 mg DAILY PO 05/23/24 17:00 06/22/24 16:59 05/28/24 09:08 81 MG Atorvastatin Calcium (LIPItor 40MG) 40 mg HS PO 05/23/24 21:00 06/22/24 20:59 05/27/24 20:13 40 MG Cefepime HCl (MAXipime 1 GM vial) 1 gm Q24H IVPB 05/22/24 11:00 05/26/24 12:08 DC 05/25/24 10:19 1 GM Clopidogrel Bisulfate (plaVIX 75MG) 75 mg DAILY PO 05/23/24 13:00 05/23/24 00:22 DC Clopidogrel Bisulfate (plaVIX 75MG) 75 mg DAILY PO 05/23/24 17:00 05/23/24 14:21 DC Clopidogrel Bisulfate (plaVIX 75MG) 75 mg DAILY PO 05/24/24 09:00 06/23/24 08:59 05/28/24 09:08 75 MG Heparin Sodium (Porcine) (HEParin 5,000 UNIT VIAL) 10,000 unit AD IRRIG 05/24/24 13:00 06/23/24 12:59 Hydralazine HCl (APRESOLine 20MG INJ) 5 mg Q6H PRN IV ADMINISTER FOR SBP > 160 05/22/24 12:30 06/21/24 12:29 05/22/24 21:19 5 MG Insulin Human Regular (humuLIN R 100 UNIT/ML 3ML) INSULIN SLIDING SCAL... ACHS SQ 05/22/24 11:30 05/27/24 12:19 DC 05/27/24 06:05 7 UNIT Insulin Human Regular (humuLIN R 100 UNIT/ML 3ML) INSULIN SLIDING SCAL... ACHS SQ 05/27/24 16:30 06/26/24 16:29 05/28/24 06:26 14 UNIT Meropenem (Merrem 1gm) 1 gm Q24H IV 05/26/24 14:00 05/26/24 16:30 DC Meropenem (Merrem 1gm) 1 gm Q24H IV 05/26/24 18:00 06/16/24 17:59 05/27/24 18:17 1 GM Nifedipine (adALAT 30MG) 60 mg Q24H PO 05/22/24 11:00 05/22/24 19:16 DC Nifedipine (adALAT 30MG) 60 mg Q24H PO 05/22/24 19:30 06/21/24 19:29 05/26/24 19:27 60 MG Ondansetron HCl (zoFRAN 4MG INJ) 4 mg Q6H PRN IVP NAUSEA/VOMITING 05/22/24 10:30 06/21/24 10:29 Pantoprazole Sodium (PROTonix 40MG TAB) 40 mg DAILY PO 05/23/24 09:00 06/22/24 08:59 05/28/24 09:08 40 MG Pharmacy Profile Note (Pharmacy Communication) 1 each ONCE MISC 05/22/24 11:00 05/22/24 10:57 DC Prednisone (deltaSONE/ oraSONE 5MG) 5 mg BID PO 05/22/24 21:00 06/21/24 20:59 05/28/24 09:08 5 MG Sodium Chloride 1,000 ml @ 0 mls/hr ONCE IV 05/27/24 12:00 06/26/24 11:59 05/27/24 11:49 333 MLS/HR Vancomycin HCl (Vancomycin 750mg) 750 mg QMOWEFR[DIALYSIS] IVPB 05/26/24 16:00 05/26/24 17:33 DC Vancomycin HCl (Vancomycin 750mg) 750 mg QMOWEFR[DIALYSIS] IVPB 05/27/24 16:00 06/06/24 15:59 05/27/24 15:33 750 MG Vancomycin HCl (Vancomycin Protocol) 1 each AD IV 05/22/24 11:00 06/05/24 10:59 Vitamin B Complex/ Vit C/Folic Acid (Nephrovite Tablet) 1 cap DAILY PO 05/23/24 09:00 06/22/24 08:59 05/25/24 10:19 1 CAP DIAGNOSTICS / RADIOLOGY: [ ] ASSESSMENT: Dislodged PermCath, POA s/p PermCath placement 05/23/2024 by IR History of ESRD on home hemodialysis therapy, POA osteomyelitis per foot x-ray 05/22/2024 Right heel culture growing Enterococcus faecalis, Streptococcus MRSA, Pseudomonas aeruginosa 05/22/2024 Chronic leukocytosis, POA Underlying immunosuppression on outpatient treatment with steroids and Remicade, POA Nonhealing diabetic foot ulcer/heel ulcer with associated deep eschar/necrotic region, being followed by Dr. Jackson as outpatient, POA Anemia of renal disease, POA Underlying history of type 2 diabetes mellitus, POA History of chronic prednisone use as outpatient, POA Uncontrolled Hypertension, POA Hyperlipidemia, POA History of peripheral arterial disease, POA Prior history of angioplasty to right popliteal artery and distal SFA by Dr. Arzate on 01/24/2024, POA History penicillin allergy, POA Noncompliance PLAN: Admit to: Medical-surgical with telemetry Consults: Washer Blanket: Dr Jackson, flat breakdown processor DR Crabtree , senior mechanical project engineer DR Mera , surgeon , LLOYD patient agreed to consult ID, 2nd opinion Dr. Edmonds ; recommendations [id number] amputation consulted Dr Arevalo Antibiotics: Vancomycin, IV Merrem IV ID on board Continue local wound care nonweightbearing Labs in a.m. CBC CMP magnesium will add flammatory markers. Continue dialysis3 times a week via PermCath. Avoid NSAIDs renal dose medication, fluid restriction daily weight Continue a.c. HS monitoring with sliding scale coverage Supportive measures DVT GI prophylaxis Pain management for adequate pain control case management: discharged planning: SNF for wound care, PT All questions addressed Further orders as per response to treatment ATTESTATION BY PHYSICIAN I have seen and examined the patient. I reviewed the documentation, medical decision making, and treatment plan as noted by the mid-level provider above. I agree with the findings and plan of care. Jennifer Huang MD, ELIZABETH NP May 28, 2024 11:51
--- NOTE | 2024-05-28 13:21 | PN ---
PROGRESS NOTE Date of Service: May 28, 2024 Time of Service: 13:19 SUBJECTIVE: No new concerns. Denies fever chills and pain. Examined at bedside. Last HD treatment was yesterday. REVIEW OF SYSTEMS CONSTITUTIONAL: Denies fever, chills, or fatigue. HEAD/FACE: No signs of trauma. EENT: Denies eye pain, blurred vision, double vision, or light sensitivity. RESPIRATORY: Denies shortness of breath, cough, wheezing CARDIOVASCULAR: Denies chest pain, palpitation, syncope peripheral arterial sclerosis. GASTROINTESTINAL/ABDOMINAL: Denies abdominal pain, constipation, diarrhea, nausea or vomiting GENITOURINARY: Denies dysuria or hematuria. 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 INTEGUMENTARY: Gangrenous ulcer to the posterior aspect of the right foot and heel. NEUROLOGICAL/PSYCH: Denies anxiety, depression, heat or cold intolerance. PHYSICAL EXAM EYES: Anicteric. Pupils equal and reactive. HENT: No oral thrush seen, moist Oral mucosa NECK: Supple, no JVD or thyromegaly. LUNGS: Good air entry. No rales, no rhonchi. CARDIOVASCULAR: S1, S2 regular. No murmur heard. ABDOMEN: Soft, non tender, bowel sounds present, no organomegaly CENTRAL NERVOUS SYSTEM: Awake, alert, oriented x 3. No focal deficits. SKIN: Ulcer with gangrene to the right foot stump. LYMPHATICS: No peripheral lymphadenopathy MUSCULOSKELETAL: Edema erythema and swelling of the right stump with a history of Syme's amputation. EXTREMITIES: Gangrenous ulcer to the posterior and plantar aspect of the right foot stump. BACK: No deformity, no pressure ulcer. GENITOURINARY: No dysuria or hematuria Vital Signs (last 8hr) Date Time Temp Pulse Resp B/P (MAP) Pulse Ox O2 Delivery O2 Flow Rate FiO2 05/28/24 11:46 98.4 84 19 137/76 94 Room Air 05/28/24 09:15 98 Room Air* 0 21 05/28/24 08:15 97.7 97 19 138/71 98 Room Air LABS: Laboratory: Test 05/28/24 10:52 05/27/24 04:55 Range/Units Whole Blood Glucose 106 # 70-110 MG/DL White Blood Count 12.4 H 4.8-10.8 K/uL Red Blood Count 2.34 L 4.50-6.20 MIL/uL Hemoglobin 7.2 L 14.0-18.0 g/dL Hematocrit 22.8 L 42-54 % Mean Corpuscular Volume 97.4 79-99 fL Mean Corpuscular Hemoglobin 30.8 27.0-33.0 pg Mean Corpuscular Hemoglobin Concent 31.6 L 32.0-36.0 g/dL Red Cell Distribution Width 15.7 H 11.0-15.5 % Platelet Count 195 130-400 K/uL Mean Platelet Volume 11.0 H 7.5-10.5 fL Immature Granulocyte % (Auto) 0.6 0-1 % Neutrophils (%) (Auto) 77.5 H 40.0-77.0 % Lymphocytes (%) (Auto) 14.3 L 21.0-51.0 % Monocytes (%) (Auto) 5.9 3.0-13.0 % Eosinophils (%) (Auto) 1.5 0.0-8.0 % Basophils (%) (Auto) 0.2 0.0-5.0 % Neutrophils # (Auto) 9.6 H 1.8-7.7 K/uL Lymphocytes # (Auto) 1.8 1.0-4.8 K/uL Monocytes # (Auto) 0.7 0.1-1.0 K/uL Eosinophils # (Auto) 0.18 0.00-0.70 K/uL Basophils # (Auto) 0.03 0.00-0.20 K/uL Absolute Immature Granulocyte (auto 0.08 0-1 K/uL Nucleated Red Blood Cells 0.0 0.0-0.19 % Sodium Level 138 136-145 mmol/L Potassium Level 4.2 3.5-5.1 mmol/L Chloride Level 101 101-111 mmol/L Carbon Dioxide Level 26 21-32 mmol/L Blood Urea Nitrogen 47 H 7-18 mg/dL Creatinine 6.3 H 0.5-1.3 mg/dL Glomerular Filtration Rate Calc 9 >90 mL/min Random Glucose 342 H 70-105 mg/dL Total Calcium 7.6 L 8.5-10.1 mg/dL Magnesium Level 1.90 1.80-2.40 mg/dL Total Bilirubin 0.4 0.2-1.0 mg/dL Aspartate Amino Transf (AST/SGOT) 8 L 10-37 U/L Alanine Aminotransferase (ALT/SGPT) 6 L 12-78 U/L Alkaline Phosphatase 113 50-136 U/L Total Protein 6.2 6.0-8.3 g/dL Albumin 2.5 L 3.5-5.0 g/dL DIAGNOSTICS / RADIOLOGY: MANAGER CHANNEL PROCEDURE REQUEST REASON: DISLODGED PERMACATH. COMPARISON: None TECHNIQUE: Fluoroscopic guidance with placement of left internal jugular-right atrial tunneled Duramax dialysis catheter. FINDINGS: The right internal jugular vein is occluded at the junction with the superior vena cava and right subclavian vein. Left internal jugular vein is patent. PROCEDURE: Informed consent obtained the patient following explanation of risk, benefits, complications. Timeout performed by nursing staff. Continuous monitoring was performed of the patient during the procedure I nursing personnel including cardiovascular status, oxygenation, respiration. Patient received intravenous titrated doses of Versed and fentanyl during the procedure administered by nursing personnel. Right neck and left neck were prepped and draped in sterile fashion. Ultrasound of the right neck demonstrates large amount thrombus within the proximal internal jugular vein. Following local anesthesia with 1% lidocaine, access gained into the right internal jugular vein under direct ultrasound guidance. Guidewire could not be passed beyond the area of obstruction at the junction with the SVC. This site was abandoned and attention was made to the left internal jugular venous access site. Following local anesthesia with 1% lidocaine subcutaneous, needle access into the left internal jugular vein obtained with ultrasound guidance. Fine guidewire placement, microcatheter access was passed over the guidewire. J-wire was then passed through the sheath in past the right atrium into the inferior vena cava. Fashion dilatation performed, tunneled Duramax catheter 32 cm in length, was passed over guidewire and the tip of the catheter positioned within the right atrium. Both ports were flushed, aspirated, flushed, heparinized, capped, clamped. Catheter secured to the skin with retention suture and sterile dressing. Patient tolerated procedure well without evidence of comp occasions. Total fluoroscopic time: 3.7 minutes. Estimated blood loss: Less than 8 ml. IMPRESSION: Placement of 32 cm tunneled Duramax dialysis catheter with the tip positioned within the right atrium. Access from the left internal jugular vein. Catheter is ready for immediate use. ASSESSMENT: ESRD DM2 with nephropathy HTN with renal manifestation Hyperkalemia Anemia of CKD Osteomyelitis PLAN: No acute HD today, continue with TTS Monitor Electrolytes Renal Diet CHEPE as per protocol with HD treatments Continue home medications Wound being assessed for 2nd opinion LALITHA KOCH May 28, 2024 13:21
[2024-05-28] MEDS: ceTIRIzine HCL 5 MG TABLET PO ONE (15:09)
[2024-05-28] MEDS: BENZONATATE 100 MG CAPSULE PO ONE (15:09)
[2024-05-28 16:12] LABS: INFLUENZA TYPE A Negative For Type A (NEGATIVE); INFLUENZA TYPE B Negative For Type B (NEGATIVE)
[2024-05-28] MEDS: monteLUKAST sodIUM 10 MG TAB PO SCH (20:35)
[2024-05-28] MEDS: INSULIN GLARgine 100 UNITS/ML 10 ML VIAL SQ SCH (20:42)
--- NOTE | 2024-05-28 22:01 | NUR ---
Nursing Note Spoke with Heather LEARY about pt's BS she stated to check glucose q4hrs no orders at this time.
[2024-05-28] MEDS: BENZONATATE 100 MG CAPSULE PO PRN (23:52)
[2024-05-29] VITALS (9 sets, daily range): BP systolic 142–179; BP diastolic 58–82; PULSE 97–105; RESP 18–19; TEMP 98–98.7; O2SAT 96
[2024-05-29 05:53] LABS: BASOPHILS # (AUTO) 0.06 K/uL (0.00-0.20); BASOPHILS % (AUTO) 0.5 % (0.0-5.0); EOSINOPHILS # (AUTO) 0.21 K/uL (0.00-0.70); EOSINOPHILS % (AUTO) 1.8 % (0.0-8.0); HEMATOCRIT 22.6 % (42-54); IMMATURE GRANULOCYTE ABSOLUTE 0.16 K/uL (0-1); LYMPHOCYTES # (AUTO) 1.3 K/uL (1.0-4.8); LYMPHOCYTES % (AUTO) 11.3 % (21.0-51.0); MEAN CORPUSCULAR HEMOGLOBIN 30.3 pg (27.0-33.0); MEAN CORPUSCULAR HGB CONC 31.4 g/dL (32.0-36.0); MEAN CORPUSCULAR VOLUME 96.6 fL (79-99); MONOCYTES % (AUTO) 9.1 % (3.0-13.0); NEUTROPHILS # (AUTO) 8.7 K/uL (1.8-7.7); NEUTROPHILS % (AUTO) 75.9 % (40.0-77.0); PLATELET COUNT (AUTO) 207 K/uL (130-400); RED BLOOD CELL COUNT(AUTO) 2.34 MIL/uL (4.50-6.20); RED CELL DISTRIBUTION WIDTH 15.8 % (11.0-15.5); WHITE BLOOD COUNT (AUTO) 11.5 K/uL (4.8-10.8)
[2024-05-29 06:02] LABS: ALBUMIN 2.4 g/dL (3.5-5.0); BILIRUBIN,TOTAL 0.4 mg/dL (0.2-1.0); CREATININE 6.3 mg/dL (0.5-1.3); MAGNESIUM 1.8 mg/dL (1.80-2.40); POTASSIUM 4.3 mmol/L (3.5-5.1)
--- NOTE | 2024-05-29 06:34 | PN ---
SUBJECTIVE: The patient is a 59-year-old diabetic, Latin-Armenian male. White count 11.5, H and H 7.1 and 22.6, platelets 207, glucose 214. The patient is currently afebrile at 98.8, pulse 101, respiration 18, blood pressure 163/74. The patient is currently receiving IV vancomycin and meropenem. Being followed by the Cardiology Service. The patient is being followed by the Orthopedic Service. Recommendations have been made for a [id number] amputation on the right side due to the gangrene and osteomyelitis affecting the right heel with his polymicrobial wound infection. The patient is being followed by the Nephrology Service for his hemodialysis. REVIEW OF SYSTEMS: CONSTITUTIONAL: No chills, no fevers, no night sweats, no nausea or vomiting, no diarrhea. Pain to the right foot. HEENT: No problems with eyes, ears, nose or throat. CARDIOVASCULAR: He has peripheral vascular disease, being followed by the Cardiology Service. He has no significant circulation below his ankle on that right side. RESPIRATORY: No shortness of breath. GENITOURINARY: End-stage renal disease, currently receiving hemodialysis. GASTROINTESTINAL: No dysphagia. ENDOCRINE: Diabetes. PSYCHIATRIC: Denied any depression. 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 INTEGUMENT: He has foul smelling fibronecrotic putrid wound to the posterior heel on the right, hemorrhagic necrosis of the tissues, exposure of the calcaneus, exposure of the Achilles tendon. ASSESSMENT: Infected necrotic posterior heel ulcer with osteomyelitis, polymicrobial wound infection, receiving Merrem and vancomycin. The patient has chronic osteomyelitis. The patient's cultures, Staph aureus, methicillin-resistant Staph aureus, pseudomonas and enterococcus faecalis, he is receiving vancomycin and the meropenem. PLAN: We will continue with vancomycin and meropenem. My recommendations for the patient is to proceed with a low extremity amputation on the right at a [id number] amputation level due to gangrene and osteomyelitis. Continue with meropenem and vancomycin. Continue with Betadine dressings. Continue with offloading measures. Continue with hemodialysis support. TID: [id number] RECEIPT: [id number]
[2024-05-29] MEDS: ceTIRIzine HCL 5 MG TABLET PO SCH (09:00)
[2024-05-29] MEDS: hydroMORPHone 0.5 MG SYG (0.5MG/0.5ML) IVP ONE (10:20)
--- NOTE | 2024-05-29 13:29 | PN ---
[facility] PROGRESS NOTE Date of Service: May 29, 2024 Time of Service: 13:[address] Huang SUBJECTIVE: [ 05/22/23 59-year-old male with underlying history of hypertension, hyperlipidemia, peripheral arterial disease, type 2 diabetes mellitus, ESRD on chronic home hemodialysis of Wednesday, Wednesday, Wednesday, history of chronic diabetic foot ulcer of the right heel being followed by Podiatry as outpatient, psoriasis on chronic outpatient steroids and Remicade infusion who presented to the ER after his PermCath for hemodialysis was dislodged. Dislodgement happened on Wednesday and patient decided to come to the ER today for further evaluation. Patient states that similar episode has happened about six months ago and patient had PermCath placed by IR. Patient denies any fevers or chills. Reports that he is due for home hemodialysis today. He has a history of chronic diabetic foot/ heel ulcer being followed by Dr. Jackson as outpatient. He was seen by Dr. Jackson recently and has been taking oral outpatient antibiotics with doxycycline. He is supposed to see Dr. Mata with Infectious Disease on 05/26/2024 given persistent nonresolving infection. [place] [facility] [place] after he was found to have cellulitis involving the TMA site of the right foot along with heel ulcer. Patient was found to have polymicrobial infection with Enterococcus faecalis, Pseudomonas aeruginosa and Bacteroides. He underwent debridement and wound VAC placement and was eventually discharged to [facility]. Patient was also seen by Cardiology and underwent peripheral angiogram with findings of severe right lower extremity PAD and patient underwent angioplasty of the right popliteal and distal SFA by Dr. Arzate. He was supposed to be on dual antiplatelet therapy with aspirin and Plavix but patient states that he has not taken either aspirin or Plavix after discharge from [facility]. On presentation to the hospital, patient was noted to be afebrile and hemodynamically stable. EKG showed normal sinus rhythm. chest x-ray showed no pulmonary edema. [place] [address], hemoglobin of 8.2, platelet count of 250,000. Patient initially stated that he did not want to be admitted and wanted IR to change catheter and be discharged home. But after further discussion, he is agreeable to be admitted for further evaluation by Dr. Jackson with regards to nonhealing ulcer/eschar of the right foot. we will rule out any active cellulitis and patient will be started on broad-spectrum antibiotics. Blood cultures will be obtained. Consultation with IR will be obtained as well for placement of PermCath. We will see how patient progresses. Patient has significant PAD, patient may need Cardiology evaluation as well as he has been off dual antiplatelet therapy for several months now. 05/23/23 patient was seen by nurse practitioner and physician during rounding in room 419. at the bedside. Per RN patient has been refusing labs that were ordered for PermCath placement. Patient has no access for dialysis at this moment. Patient was evaluated by Dr. Jackson and that is recommending Betadine dressing. Also cardiology recommendation is still pending. Podiatry order MRI ankle right foot but unfortunately patient is refusing scan as well. Patient stated that he came to [facility] only to get PermCath placement and he is leaving. He threatened that if he will not get PermCath by 2:00 p.m. he will leave AMA. Patient is refusing Cardiology consultation to evaluate arteries and is also refusing ID consultation for possible osteomyelitis for antibiotics. We will continue to monitor patient in the meantime. A.m. labs 05/24/24 patient was seen by nurse practitioner and physician. Patient underwent PermCath placement 05/23/2024 by IR. Patient was seen by support staff and they recommended CTA abdomen aorta with runoff. Patient is refusing. Dr. Merritt was notified by RN. Patient underwent dialysis yesterday 05/23/2024 and 3.1 L was removed after the catheter placed. Patient continues to refuse infectious disease doctor for antibiotic treatment/recommendations. Dr. Kincaid was consulted for amputation as requested by patient. We are pending further evaluation/recommendations. MRI ankle that was ordered yesterday was also refused and patient is still continues to refuse it. We will continue to monitor patient in the meantime. A.m. labs 05/25/24 patient was seen by nurse practitioner and physician during rounding in room 419 sitting in the bed. Patient was evaluated by Dr. Jackson and at this moment patient is pending evaluation of his circulation with a CTA abdominal aorta with a runoff. The exam was already taken just pending results at this moment. Patient is receiving hemodialysis as scheduled by motor installer . Patient continues to receive IV antibiotics vancomycin and cefepime. Per Dr. Horne's recommendation patient will be best served with a minimal of below the knee amputation on the right side due to gangrene and osteomyelitis affecting the posterior heel, posterior ankle on the right. Patient was also seen by the urologist and further recommendations are pending once CT runoff study of the peripheral arterial vasculature will be performed. Today WBC is 11.7 H&H stable. As per clinical engineer surgeon Dr. Montes, further recommendations based on lab and radiology results. We will continue to monitor patient in the meantime. A.m. labs 05/26/24 patient was seen by INTERNAL AUDITOR and physician during rounding. Patient underwent T come and CT abdomen aorta went runoff which was abnormal. Dr. Merritt ordered AARO Poss PVI RLE, and at this moment patient is denying to do the procedure. Patient stated he would like to talk to support staff 1st. Dr. Jackson still continues to recommend surgery. Patient is requesting 2nd opinion Dr. Edmonds will be consulted. Nurse practitioner was able to convince patient to consult Infectious Disease doctor due to right heel culture is growing Enter ococcus faecalis, Streptococcus oralis MRSA, Pseudomonas aeruginosa. Nurse practitioner continue vancomycin and started the patient on Merrem, discontinue cefepime. Patient also stated that he does not want to proceed with the surgical intervention of amputation at this moment. he would like to go home on antibiotics and after treatment to re-evaluate if amputations still needed. We will continue to monitor patient in the meantime. A.m. labs] 05/27/24 patient is seen and examined. Apparently patient waiting for 2nd opinion MRI and procedure as recommended by support staff's is on hold given to patient has refused and wants a 2nd opinion. 05/28/24 patient is seen and examined was followed by clinical engineer for 2nd opinion. Recommendations amputation Dr. Arevalo was consulted. Patient is fully awake alert oriented x3. 05/29/24 patient was seen by nurse practitioner and physician during rounding in room 419. Patient is pending amputation, right BKA with Dr. Montes today 05/29/2024. Patient's hemoglobin was today 7.1. As requested by OR patient received one PRBC prior surgery. WBC today is 11.5. As per microbiology right heel that is growing prevotella melaninogenica, MRSA, Enterococcus faecalis, Pseudomonas aeruginosa. Patient continues to be on Ceftin to be on vancomycin, Merrem at this moment. Physical therapy was consulted. Case management for disposition on the case. We will continue to monitor patient. A.m. labs REVIEW OF SYSTEMS CONSTITUTIONAL: reports that permacath was dislodged today NEUROLOGICAL: Denies headache, amaurosis fugax, motor weakness, sensory d eficit, vertigo/spinning sensation, gait abnormalities, or tremors. ENT: No hearing loss, otalgia, otorrhea, rhinitis, rhinorrhea, hoarseness, or sore throat. CARDIOVASCULAR: Denies any exertional angina, dyspnea on exertion, orthopnea, paroxysmal nocturnal dyspnea, palpitations, life-threatening arrhythmias, claudication. PULMONARY: Denies any shortness of breath, cough, phlegm/sputum, hemoptysis, pleuritic chest pain. SLEEP: Denies morning headaches, daytime somnolence or napping. Denies difficulty falling asleep, staying asleep, waking from sleep. Denies knowledge of snoring. GASTROINTESTINAL: Denies any type of dysphagia to either liquids or solids. Denies nausea, vomiting, pyrosis, early satiety, abdominal pain, diarrhea, constipation, or changes in stool consistency or caliber. Denies coffee-ground emesis, hematemesis, hematochezia, or melanotic stools. GENITOURINARY: Denies frequency, urgency, nocturia, hematuria or incontinence (Storage/Irritative symptoms.) Low urinary stream, straining to void, urinary intermittency or hesitancy, splitting of the voiding stream, terminal dribbling. ENDOCRINOLOGIC: Denies polyuria, polydipsia, polyphagia or heat/cold intolerances. HEMATOLOGIC: Denies thrombophilia/previous clots, or coagulopathy/bleeding disorders. ONCOLOGIC: Denies personal history of malignancy. DERMATOLOGIC: ulcer involving the right foot heel PSYCHIATRIC: Denies any suicidal or homicidal ideation. Denies hallucinations. PHYSICAL EXAM GENERAL APPEARANCE: The patient is awake, alert, and oriented, in no acute cardiopulmonary distress. NEUROLOGICAL: Cranial nerves II-XII grossly intact. Motor is 5/5 in bilateral upper and lower extremities proximal to distal. No sensory deficits. HEENT: Face is symmetric. Pupils are equal and reactive. Extraocular movements are intact. NECK: Supple. No JVD. No thyromegaly. No submental, submandibular, pre- /postauricular, occipital or supraclavicular lymphadenopathy. CHEST: Normal chest expansion. No Telemetry. LUNGS: Absence of any rales, rhonchi or any wheezing. CARDIOVASCULAR: Regular. S1 and S2 normal. No appreciable rubs, murmurs or gallops. ABDOMEN: Soft, nontender, and nondistended. There is no rebound, voluntary guarding, or rigidity. : Deferred. No Hutson. EXTREMITIES: Patient has heel has a large area of eschar with possible necrotic region SKIN: No skin breakdown. Vital Signs (last 8hr) Date Time Temp Pulse Resp B/P (MAP) Pulse Ox O2 Delivery O2 Flow Rate FiO2 05/29/24 11:47 98.2 105 18 143/67 96 Room Air 21 05/29/24 09:00 96 Room Air* 0 21 05/29/24 07:10 98.1 97 18 142/60 96 Room Air 21 05/29/24 06:46 142/58 LABS: Laboratory: Test 05/29/24 11:03 05/29/24 04:56 05/28/24 20:18 05/28/24 15:23 Range/Units Whole Blood Glucose 231 H 70-110 MG/DL White Blood Count 11.5 H 4.8-10.8 K/uL Red Blood Count 2.34 L 4.50-6.20 MIL/uL Hemoglobin 7.1 L 14.0-18.0 g/dL Hematocrit 22.6 L 42-54 % Mean Corpuscular Volume 96.6 79-99 fL Mean Corpuscular Hemoglobin 30.3 27.0-33.0 pg Mean Corpuscular Hemoglobin Concent 31.4 L 32.0-36.0 g/dL Red Cell Distribution Width 15.8 H 11.0-15.5 % Platelet Count 207 130-400 K/uL Mean Platelet Volume 11.3 H 7.5-10.5 fL Immature Granulocyte % (Auto) 1.4 H 0-1 % Neutrophils (%) (Auto) 75.9 40.0-77.0 % Lymphocytes (%) (Auto) 11.3 L 21.0-51.0 % Monocytes (%) (Auto) 9.1 3.0-13.0 % Eosinophils (%) (Auto) 1.8 0.0-8.0 % Basophils (%) (Auto) 0.5 0.0-5.0 % Neutrophils # (Auto) 8.7 H 1.8-7.7 K/uL Lymphocytes # (Auto) 1.3 1.0-4.8 K/uL Monocytes # (Auto) 1.0 0.1-1.0 K/uL Eosinophils # (Auto) 0.21 0.00-0.70 K/uL Basophils # (Auto) 0.06 0.00-0.20 K/uL Absolute Immature Granulocyte (auto 0.16 0-1 K/uL Nucleated Red Blood Cells 0.0 0.0-0.19 % Sodium Level 141 136-145 mmol/L Potassium Level 4.3 3.5-5.1 mmol/L Chloride Level 104 101-111 mmol/L Carbon Dioxide Level 28 21-32 mmol/L Blood Urea Nitrogen 46 H 7-18 mg/dL Creatinine 6.3 H 0.5-1.3 mg/dL Glomerular Filtration Rate Calc 9 >90 mL/min Random Glucose 242 H 70-105 mg/dL Total Calcium 7.3 L 8.5-10.1 mg/dL Magnesium Level 1.80 1.80-2.40 mg/dL Total Bilirubin 0.4 0.2-1.0 mg/dL Aspartate Amino Transf (AST/SGOT) 9 L 10-37 U/L Alanine Aminotransferase (ALT/SGPT) 8 L 12-78 U/L Alkaline Phosphatase 134 50-136 U/L Total Protein 6.0 6.0-8.3 g/dL Albumin 2.4 L 3.5-5.0 g/dL Vancomycin Level 17.0 L 20.0-30.0 mcg/mL Bedside Glucose Comment Notified Nurse Influenza Type A Antigen Negative For Type A NEGATIVE Influenza Type B Antigen Negative For Type B NEGATIVE Current Medications Medications (Trade) Dose Ordered Sig/Idania Route PRN Reason Start Time Stop Time Status Last Admin Dose Admin Acetaminophen (TYLenol 325MG TAB) 650 mg Q6H PRN PO MILD PAIN (1-3) 05/22/24 10:30 06/21/24 10:29 Acetaminophen/ Hydrocodone Bitart (NORco 5/325MG) 1 tab Q8H PRN PO MODERATE PAIN (4-6) 05/22/24 23:00 05/27/24 22:59 DC 05/22/24 22:51 1 TAB Aspirin (Aspirin 81mg Chew Tab) 81 mg DAILY PO 05/23/24 09:00 05/23/24 00:22 DC Aspirin (Aspirin 81mg Chew Tab) 81 mg DAILY PO 05/23/24 17:00 06/22/24 16:59 05/28/24 09:08 81 MG Atorvastatin Calcium (LIPItor 40MG) 40 mg HS PO 05/23/24 21:00 06/22/24 20:59 05/28/24 20:35 40 MG Benzonatate (Tessalon 100mg Caps) 100 mg Q8H PRN PO cough 05/28/24 14:00 06/27/24 13:59 05/28/24 23:52 100 MG Cefepime HCl (MAXipime 1 GM vial) 1 gm Q24H IVPB 05/22/24 11:00 05/26/24 12:08 DC 05/25/24 10:19 1 GM Cetirizine HCl (ZYRtec 5 MG TABLET) 5 mg DAILY PO 05/29/24 09:00 06/28/24 08:59 Clopidogrel Bisulfate (plaVIX 75MG) 75 mg DAILY PO 05/23/24 13:00 05/23/24 00:22 DC Clopidogrel Bisulfate (plaVIX 75MG) 75 mg DAILY PO 05/23/24 17:00 05/23/24 14:21 DC Clopidogrel Bisulfate (plaVIX 75MG) 75 mg DAILY PO 05/24/24 09:00 06/23/24 08:59 05/28/24 09:08 75 MG Heparin Sodium (Porcine) (HEParin 5,000 UNIT VIAL) 10,000 unit AD IRRIG 05/24/24 13:00 06/23/24 12:59 Hydralazine HCl (APRESOLine 20MG INJ) 5 mg Q6H PRN IV ADMINISTER FOR SBP > 160 05/22/24 12:30 06/21/24 12:29 05/29/24 04:52 5 MG Insulin Glargine (LANtus 100 UNITS/ML 10 ML VIAL) 15 units HS SQ 05/28/24 21:00 06/27/24 20:59 Insulin Human Regular (humuLIN R 100 UNIT/ML 3ML) INSULIN SLIDING SCAL... ACHS SQ 05/22/24 11:30 05/27/24 12:19 DC 05/27/24 06:05 7 UNIT Insulin Human Regular (humuLIN R 100 UNIT/ML 3ML) INSULIN SLIDING SCAL... ACHS SQ 05/27/24 16:30 06/26/24 16:29 05/28/24 20:41 16 UNIT Meropenem (Merrem 1gm) 1 gm Q24H IV 05/26/24 14:00 05/26/24 16:30 DC Meropenem (Merrem 1gm) 1 gm Q24H IV 05/26/24 18:00 06/16/24 17:59 05/28/24 18:13 1 GM Montelukast Sodium (SinguLAIR) 10 mg HS PO 05/28/24 21:00 06/27/24 20:59 05/28/24 20:35 10 MG Nifedipine (adALAT 30MG) 60 mg Q24H PO 05/22/24 11:00 05/22/24 19:16 DC Nifedipine (adALAT 30MG) 60 mg Q24H PO 05/22/24 19:30 06/21/24 19:29 05/26/24 19:27 60 MG Ondansetron HCl (zoFRAN 4MG INJ) 4 mg Q6H PRN IVP NAUSEA/VOMITING 05/22/24 10:30 06/21/24 10:29 Pantoprazole Sodium (PROTonix 40MG TAB) 40 mg DAILY PO 05/23/24 09:00 06/22/24 08:59 05/28/24 09:08 40 MG Pharmacy Profile Note (Pharmacy Communication) 1 each ONCE MISC 05/22/24 11:00 05/22/24 10:57 DC Prednisone (deltaSONE/ oraSONE 5MG) 5 mg BID PO 05/22/24 21:00 06/21/24 20:59 05/28/24 20:35 5 MG Sodium Chloride 1,000 ml @ 0 mls/hr ONCE IV 05/27/24 12:00 06/26/24 11:59 05/27/24 11:49 333 MLS/HR Vancomycin HCl (Vancomycin 750mg) 750 mg QMOWEFR[DIALYSIS] IVPB 05/26/24 16:00 05/26/24 17:33 DC Vancomycin HCl (Vancomycin 750mg) 750 mg QMOWEFR[DIALYSIS] IVPB 05/27/24 16:00 06/06/24 15:59 05/27/24 15:33 750 MG Vancomycin HCl (Vancomycin Protocol) 1 each AD IV 05/22/24 11:00 06/05/24 10:59 Vitamin B Complex/ Vit C/Folic Acid (Nephrovite Tablet) 1 cap DAILY PO 05/23/24 09:00 06/22/24 08:59 05/25/24 10:19 1 CAP DIAGNOSTICS / RADIOLOGY: [ ] ASSESSMENT: Dislodged PermCath, POA s/p PermCath placement 05/23/2024 by IR History of ESRD on home hemodialysis therapy, POA osteomyelitis per foot x-ray 05/22/2024 Right heel culture growing Enterococcus faecalis, Streptococcus MRSA, Pseudomo francis aeruginosa 05/22/2024 Chronic leukocytosis, POA Underlying immunosuppression on outpatient treatment with steroids and Remicade, POA Nonhealing diabetic foot ulcer/heel ulcer with associated deep eschar/necrotic region, being followed by Dr. Jackson as outpatient, POA Anemia of renal disease, POA Underlying history of type 2 diabetes mellitus, POA History of chronic prednisone use as outpatient, POA Uncontrolled Hypertension, POA Hyperlipidemia, POA History of peripheral arterial disease, POA Prior history of angioplasty to right popliteal artery and distal SFA by Dr. Arzate on 01/24/2024, POA History penicillin allergy, POA Noncompliance PLAN: Admit to: Medical-surgical with telemetry Pending BKA 05/29/[address] Montes Consults: Informatics Nurse: Dr Jackson, support staff DR Crabtree , motor installer DR Mera , surgeon , ID refused , 2nd opinion Dr. Edmonds ; Dr Montes Antibiotics: Vancomycin, IV Merrem IV Continue local wound care nonweightbearing Labs in a.m. CBC CMP magnesium will add flammatory markers. Continue dialysis3 times a week via PermCath. Avoid NSAIDs renal dose medication, fluid restriction daily weight Continue a.c. HS monitoring with sliding scale coverage Supportive measures DVT GI prophylaxis Pain management for adequate pain control case management: discharged planning: SNF for wound care, PT All questions addressed Further orders as per response to treatment ATTESTATION BY PHYSICIAN I have seen and examined the patient. I reviewed the documentation, medical decision making, and treatment plan as noted by the mid-level provider above. I agree with the findings and plan of care. Jennifer Huang MD, KATARZYNA B APRN May 29, 2024 13:29
--- NOTE | 2024-05-29 15:55 | PN ---
PROGRESS NOTE Date of Service: May 29, 2024 Time of Service: 15:54 SUBJECTIVE: No new concerns. Denies fever chills and pain. Examined at bedside. Last HD treatment Wednesday. Scheduled for procedure today with Dr Montes. REVIEW OF SYSTEMS CONSTITUTIONAL: Denies fever, chills, or fatigue. HEAD/FACE: No signs of trauma. EENT: Denies eye pain, blurred vision, double vision, or light sensitivity. RESPIRATORY: Denies shortness of breath, cough, wheezing CARDIOVASCULAR: Denies chest pain, palpitation, syncope peripheral arterial sclerosis. GASTROINTESTINAL/ABDOMINAL: Denies abdominal pain, constipation, diarrhea, nausea or vomiting GENITOURINARY: Denies dysuria or hematuria. 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 INTEGUMENTARY: Gangrenous ulcer to the posterior aspect of the right foot and heel. NEUROLOGICAL/PSYCH: Denies anxiety, depression, heat or cold intolerance. PHYSICAL EXAM EYES: Anicteric. Pupils equal and reactive. HENT: No oral thrush seen, moist Oral mucosa NECK: Supple, no JVD or thyromegaly. LUNGS: Good air entry. No rales, no rhonchi. CARDIOVASCULAR: S1, S2 regular. No murmur heard. ABDOMEN: Soft, non tender, bowel sounds present, no organomegaly CENTRAL NERVOUS SYSTEM: Awake, alert, oriented x 3. No focal deficits. SKIN: Ulcer with gangrene to the right foot stump. LYMPHATICS: No peripheral lymphadenopathy MUSCULOSKELETAL: Edema erythema and swelling of the right stump with a history of Syme's amputation. EXTREMITIES: Gangrenous ulcer to the posterior and plantar aspect of the right foot stump. BACK: No deformity, no pressure ulcer. GENITOURINARY: No dysuria or hematuria Vital Signs (last 8hr) Date Time Temp Pulse Resp B/P (MAP) Pulse Ox O2 Delivery O2 Flow Rate FiO2 05/29/24 11:47 98.2 105 18 143/67 96 Room Air 21 05/29/24 09:00 96 Room Air* 0 21 LABS: Laboratory: Test 05/29/24 11:03 05/29/24 04:56 05/28/24 20:18 05/28/24 15:23 Range/Units Whole Blood Glucose 231 H 70-110 MG/DL White Blood Count 11.5 H 4.8-10.8 K/uL Red Blood Count 2.34 L 4.50-6.20 MIL/uL Hemoglobin 7.1 L 14.0-18.0 g/dL Hematocrit 22.6 L 42-54 % Mean Corpuscular Volume 96.6 79-99 fL Mean Corpuscular Hemoglobin 30.3 27.0-33.0 pg Mean Corpuscular Hemoglobin Concent 31.4 L 32.0-36.0 g/dL Red Cell Distribution Width 15.8 H 11.0-15.5 % Platelet Count 207 130-400 K/uL Mean Platelet Volume 11.3 H 7.5-10.5 fL Immature Granulocyte % (Auto) 1.4 H 0-1 % Neutrophils (%) (Auto) 75.9 40.0-77.0 % Lymphocytes (%) (Auto) 11.3 L 21.0-51.0 % Monocytes (%) (Auto) 9.1 3.0-13.0 % Eosinophils (%) (Auto) 1.8 0.0-8.0 % Basophils (%) (Auto) 0.5 0.0-5.0 % Neutrophils # (Auto) 8.7 H 1.8-7.7 K/uL Lymphocytes # (Auto) 1.3 1.0-4.8 K/uL Monocytes # (Auto) 1.0 0.1-1.0 K/uL Eosinophils # (Auto) 0.21 0.00-0.70 K/uL Basophils # (Auto) 0.06 0.00-0.20 K/uL Absolute Immature Granulocyte (auto 0.16 0-1 K/uL Nucleated Red Blood Cells 0.0 0.0-0.19 % Sodium Level 141 136-145 mmol/L Potassium Level 4.3 3.5-5.1 mmol/L Chloride Level 104 101-111 mmol/L Carbon Dioxide Level 28 21-32 mmol/L Blood Urea Nitrogen 46 H 7-18 mg/dL Creatinine 6.3 H 0.5-1.3 mg/dL Glomerular Filtration Rate Calc 9 >90 mL/min Random Glucose 242 H 70-105 mg/dL Total Calcium 7.3 L 8.5-10.1 mg/dL Magnesium Level 1.80 1.80-2.40 mg/dL Total Bilirubin 0.4 0.2-1.0 mg/dL Aspartate Amino Transf (AST/SGOT) 9 L 10-37 U/L Alanine Aminotransferase (ALT/SGPT) 8 L 12-78 U/L Alkaline Phosphatase 134 50-136 U/L Total Protein 6.0 6.0-8.3 g/dL Albumin 2.4 L 3.5-5.0 g/dL Vancomycin Level 17.0 L 20.0-30.0 mcg/mL Bedside Glucose Comment Notified Nurse Influenza Type A Antigen Negative For Type A NEGATIVE Influenza Type B Antigen Negative For Type B NEGATIVE DIAGNOSTICS / RADIOLOGY: EMBEDDED PROCESSOR PROCEDURE REQUEST REASON: DISLODGED PERMACATH. COMPARISON: None TECHNIQUE: Fluoroscopic guidance with placement of left internal jugular-right atrial tunneled Duramax dialysis catheter. FINDINGS: The right internal jugular vein is occluded at the junction with the superior vena cava and right subclavian vein. Left internal jugular vein is patent. PROCEDURE: Informed consent obtained the patient following explanation of risk, benefits, complications. Timeout performed by nursing staff. Continuous monitoring was performed of the patient during the procedure I nursing personnel including cardiovascular status, oxygenation, respiration. Patient received intravenous titrated doses of Versed and fentanyl during the procedure administered by nursing personnel. Right neck and left neck were prepped and draped in sterile fashion. Ultrasound of the right neck demonstrates large amount thrombus within the proximal internal jugular vein. Following local anesthesia with 1% lidocaine, access gained into the right internal jugular vein under direct ultrasound guidance. Guidewire could not be passed beyond the area of obstruction at the junction with the SVC. This site was abandoned and attention was made to the left internal jugular venous access site. Following local anesthesia with 1% lidocaine subcutaneous, needle access into the left internal jugular vein obtained with ultrasound guidance. Fine guidewire placement, microcatheter access was passed over the guidewire. J-wire was then passed through the sheath in past the right atrium into the inferior vena cava. Fashion dilatation performed, tunneled Duramax catheter 32 cm in length, was passed over guidewire and the tip of the catheter positioned within the right atrium. Both ports were flushed, aspirated, flushed, heparinized, capped, clamped. Catheter secured to the skin with retention suture and sterile dressing. Patient tolerated procedure well without evidence of comp occasions. Total fluoroscopic time: 3.7 minutes. Estimated blood loss: Less than 8 ml. IMPRESSION: Placement of 32 cm tunneled Duramax dialysis catheter with the tip positioned within the right atrium. Access from the left internal jugular vein. Catheter is ready for immediate use. ASSESSMENT: ESRD DM2 with nephropathy HTN with renal manifestation Hyperkalemia Anemia of CKD Osteomyelitis PLAN: No acute HD today, continue with TTS No change to POC Monitor Electrolytes Renal Diet CHEPE as per protocol with HD treatments Continue home medications LALITHA KOCH May 29, 2024 15:55
--- NOTE | 2024-05-29 21:43 | CONS ---
REASON FOR CONSULTATION: Possible amputation to the right lower extremity. HISTORY OF PRESENT ILLNESS: This is a 59-year-old male patient with history of multiple medical comorbidities including hypertension, hyperlipidemia, peripheral vascular disease, diabetes, end-stage renal disease, on home hemodialysis. The patient has developed ulceration around the right foot with blackish eschar formation now. This has been going on for many months. The patient has been debrided in the past for the wound, but the wound is showing infection and is not getting any better. Ortho has been consulted for possible amputation. He has been undergoing multiple treatments in the past for the foot to improve circulation but has not helped him. He has also undergone angioplasty of the right popliteal and the distal SFA by Dr. Arzate. He continues to complain of some pain to the leg also. PAST MEDICAL HISTORY: Positive for end-stage renal disease, hypertension, hyperlipidemia, peripheral artery disease, diabetes, history of psoriasis. PAST SURGICAL HISTORY: History of right transmetatarsal amputation, history of multiple debridements to the right foot and leg, history of peripheral angiogram interventions by cardiology to improve the circulation to the right lower extremity. Cholecystectomy and cervical spine surgery. SOCIAL HISTORY: Does not smoke, does not drink alcohol, no illegal drugs. FAMILY HISTORY: Nothing significant. ALLERGIES: TO PENICILLIN AND SULFA. REVIEW OF SYSTEMS: A 12-system review of systems was obtained and is negative. PHYSICAL EXAMINATION: GENERAL: The patient is awake, alert, oriented x 3. The patient is moderately built and well-nourished. VITAL SIGNS: Temperature 98.3, oxygen saturation 100% on room air, blood pressure is 148/76, heart rate is 84. HEENT: Normocephalic, atraumatic. NECK: No engorged vein. CHEST: Symmetric movement seen. HEART: Regular rate and rhythm. ABDOMEN: Soft, nontender, nondistended. PELVIS: No tenderness on compression or distraction. EXTREMITIES: Examination of the right lower extremity: Signs of poor circulation present to the right lower extremity. Dorsalis pedis and posterior tibial are absent. There is a large wound present on the right heel covered by eschar and the right midfoot amputation is also present. Decreased sensation to the right foot. LABORATORY INVESTIGATIONS: Reviewed and also studies done by transcutaneous partial pressure of oxygen studies also showed poor circulation to the right lower extremity. ASSESSMENT AND PLAN: Elderly patient with acute peripheral vascular disease to the right lower extremity with a nonhealing wound and deep infection, which has been going on for many months. So, I had a detailed conversation with the patient regarding his condition and told the treatment options available and the risks and benefits. All her questions and concerns were answered in detail. I have seen the patient multiple times and given the options. The patient was going back and forth and now finally wants to proceed with amputation. So, plan is to proceed with right leg below-knee amputation. Informed consent was obtained. TID: [id number] RECEIPT: [id number]
[2024-05-30] VITALS (27 sets, daily range): BP systolic 106–166; BP diastolic 39–82; PULSE 87–106; RESP 15–18; TEMP 97.1–101; O2SAT 94–97
[2024-05-30 05:31] LABS: BASOPHILS # (AUTO) 0.07 K/uL (0.00-0.20); BASOPHILS % (AUTO) 0.6 % (0.0-5.0); EOSINOPHILS # (AUTO) 0.11 K/uL (0.00-0.70); HEMATOCRIT 26.7 % (42-54); IMMATURE GRANULOCYTE ABSOLUTE 0.16 K/uL (0-1); LYMPHOCYTES # (AUTO) 1.6 K/uL (1.0-4.8); LYMPHOCYTES % (AUTO) 15.2 % (21.0-51.0); MEAN CORPUSCULAR HEMOGLOBIN 30.8 pg (27.0-33.0); MEAN CORPUSCULAR HGB CONC 32.2 g/dL (32.0-36.0); MEAN CORPUSCULAR VOLUME 95.7 fL (79-99); MONOCYTES # (AUTO) 1.2 K/uL (0.1-1.0); MONOCYTES % (AUTO) 10.7 % (3.0-13.0); NEUTROPHILS # (AUTO) 7.7 K/uL (1.8-7.7); PLATELET COUNT (AUTO) 195 K/uL (130-400); RED BLOOD CELL COUNT(AUTO) 2.79 MIL/uL (4.50-6.20); RED CELL DISTRIBUTION WIDTH 16.7 % (11.0-15.5); WHITE BLOOD COUNT (AUTO) 10.8 K/uL (4.8-10.8)
[2024-05-30 06:04] LABS: ALBUMIN 2.4 g/dL (3.5-5.0); BILIRUBIN,TOTAL 0.4 mg/dL (0.2-1.0); CREATININE 7.1 mg/dL (0.5-1.3); MAGNESIUM 1.8 mg/dL (1.80-2.40); POTASSIUM 4.3 mmol/L (3.5-5.1); TOTAL PROTEIN, SERUM 6.1 g/dL (6.0-8.3)
--- NOTE | 2024-05-30 06:35 | PN ---
SUBJECTIVE: The patient is a very pleasant 59-year-old male. White count 10.8, H and H 8.6 and 26.7, platelets 195, glucose 183, currently receiving IV vancomycin, IV meropenem. The patient has end-stage renal disease, currently receiving hemodialysis. The patient is evaluated by Dr. Montes and by Dr. Edmonds. Dr. Edmonds feels the patient would benefit from a [id number] amputation to the right lower extremity. The patient has been evaluated by Dr. Montes. Dr. Montes's plan is to proceed with a right [id number] amputation and informed consent was signed. The patient has been followed by the Nephrology Service. PHYSICAL EXAMINATION: CONSTITUTIONAL: No chills, no fevers, no night sweats, no nausea, vomiting, no diarrhea. HEENT: No problems with his eyes, ears, nose or throat. CARDIOVASCULAR: He has peripheral vascular disease, being followed by the Cardiology Service. RESPIRATORY: No shortness of breath. GENITOURINARY: End-stage renal disease, currently receiving hemodialysis. GASTROINTESTINAL: No dysphagia. ENDOCRINE: Diabetes. PSYCHIATRIC: Depression. ASSESSMENT: History of gangrene and osteomyelitis to the right. The patient is currently is receiving the Merrem and the vancomycin for a polymicrobial wound infection. PLAN: Xcosy-[id number] amputation per Dr. Montes. Continue with IV antibiotics. Continue with hemodialysis support. TID: [id number] RECEIPT: [id number]
[2024-05-30] MEDS ORDERED: LIDOCAINE PF 100MG/5ML (2%) SYRINGE 5ML ONE (09:09)
[2024-05-30] MEDS ORDERED: dexaMETHasone SOD PHOSPHATE 10MG/ML 1ML VIAL ONE (09:09)
[2024-05-30] MEDS ORDERED: SUCCINYLCHOLINE CHLORIDE 20 MG/ML 10 ML VIAL ONE (09:11)
[2024-05-30] MEDS ORDERED: ondanSETRON 4MG INJ ONE (09:11)
[2024-05-30] MEDS ORDERED: proPOFol 10 MG/ML 20ML VIAL IV ONE (09:11)
[2024-05-30] MEDS ORDERED: NEOSTIGMINE METHYLSULFATE 1MG/ML IV ONE (09:11)
[2024-05-30] MEDS ORDERED: GLYCOPYRROLATE 0.2 MG/ML 5 ML VIAL ONE (09:11)
[2024-05-30] MEDS ORDERED: rocuRONium bROMide 10MG/1ML 5ML VL ONE (09:12)
[2024-05-30] MEDS ORDERED: FENTanyl CITRate PF 50 MCG/1 ML 2ML VIAL ONE (09:12)
[2024-05-30] MEDS ORDERED: MIDAZOLAM HCL 1 MG/ML 2ML VIAL ONE (09:15)
[2024-05-30] MEDS ORDERED: ketaMINE 50MG/ML SYRINGE 50 MG/ML DISP.SYRIN ONE (09:17)
[2024-05-30] MEDS ORDERED: ALBUMIN (HUMAN) 5% 250 ML IV ONE (09:18)
[2024-05-30] MEDS ORDERED: phenylEPHRINE HCL 10 MG/ML 1ML VIAL IV ONE (10:36)
[2024-05-30] MEDS: 0.9% NACL 500ML IV.SOLN 500 ML IV ONE (10:39)
--- NOTE | 2024-05-30 10:39 | PN ---
[facility] PROGRESS NOTE Date of Service: May 30, 2024 Time of Service: 10:39 SUBJECTIVE: 59-year-old male with underlying history of hypertension, hyperlipidemia, peripheral arterial disease, type 2 diabetes mellitus, ESRD on chronic home hemodialysis of Wednesday, Wednesday, Wednesday, history of chronic diabetic foot ulcer of the right heel being followed by Podiatry as outpatient, psoriasis on chronic outpatient steroids and Remicade infusion who presented to the ER after his PermCath for hemodialysis was dislodged. Dislodgement happened on Wednesday and patient decided to come to the ER today for further evaluation. Patient states that similar episode has happened about six months ago and patient had PermCath placed by IR. history of chronic diabetic foot/ heel ulcer being followed by Dr. Jackson as outpatient. He was seen by Dr. Jackson recently and has been taking oral outpatient antibiotics with doxycycline. He is supposed to see Dr. Mata with Infectious Disease on 05/26/2024 given persistent nonresolving infection. S/P PermCath placement 05/23/2024 by IR. Today on bedside evaluation patient was found awake alert and oriented x 3. The power chart reviewed, vital signs, laboratory tests, imaging test and medications have been reviewed. He is NPO pending right BKA by Dr. Montes. Latest vitals are stable. H&H 8.6/26.7. CMP is stable. Patient is to receive1 unit PRBCs prior to surgery. Continue IV Merrem. Continue dialysis on TTS schedule. We will follow up postprocedure for further recommendations. Patient to work with physical therapy. REVIEW OF SYSTEMS CONSTITUTIONAL: reports that permacath was dislodged today NEUROLOGICAL: Denies headache, amaurosis fugax, motor weakness, sensory deficit, vertigo/spinning sensation, gait abnormalities, or tremors. ENT: No hearing loss, otalgia, otorrhea, rhinitis, rhinorrhea, hoarseness, or sore throat. CARDIOVASCULAR: Denies any exertional angina, dyspnea on exertion, orthopnea, paroxysmal nocturnal dyspnea, palpitations, life-threatening arrhythmias, claudication. PULMONARY: Denies any shortness of breath, cough, phlegm/sputum, hemoptysis, pleuritic chest pain. SLEEP: Denies morning headaches, daytime somnolence or napping. Denies difficulty falling asleep, staying asleep, waking from sleep. Denies knowledge of snoring. GASTROINTESTINAL: Denies any type of dysphagia to either liquids or solids. Denies nausea, vomiting, pyrosis, early satiety, abdominal pain, diarrhea, constipation, or changes in stool consistency or caliber. Denies coffee-ground emesis, hematemesis, hematochezia, or melanotic stools. GENITOURINARY: Denies frequency, urgency, nocturia, hematuria or incontinence (Storage/Irritative symptoms.) Low urinary stream, straining to void, urinary intermittency or hesitancy, splitting of the voiding stream, terminal dribbling. ENDOCRINOLOGIC: Denies polyuria, polydipsia, polyphagia or heat/cold intolerances. HEMATOLOGIC: Denies thrombophilia/previous clots, or coagulopathy/bleeding disorders. ONCOLOGIC: Denies personal history of malignancy. DERMATOLOGIC: ulcer involving the right foot heel PSYCHIATRIC: Denies any suicidal or homicidal ideation. Denies hallucinations. PHYSICAL EXAM GENERAL APPEARANCE: The patient is awake, alert, and oriented, in no acute cardiopulmonary distress. NEUROLOGICAL: Cranial nerves II-XII grossly intact. Motor is 5/5 in bilateral upper and lower extremities proximal to distal. No sensory deficits. HEENT: Face is symmetric. Pupils are equal and reactive. Extraocular movements are intact. NECK: Supple. No JVD. No thyromegaly. No submental, submandibular, pre- /postauricular, occipital or supraclavicular lymphadenopathy. CHEST: Normal chest expansion. No Telemetry. LUNGS: Absence of any rales, rhonchi or any wheezing. CARDIOVASCULAR: Regular. S1 and S2 normal. No appreciable rubs, murmurs or gallops. ABDOMEN: Soft, nontender, and nondistended. There is no rebound, voluntary guarding, or rigidity. : Deferred. No Hutson. EXTREMITIES: Patient has heel has a large area of eschar with possible necrotic region SKIN: No skin breakdown. Vital Signs (last 8hr) Date Time Temp Pulse Resp B/P (MAP) Pulse Ox O2 Delivery O2 Flow Rate FiO2 05/30/24 07:00 98.1 98 18 130/65 97 Room Air 21 05/30/24 04:17 98.6 106 18 146/60 98 Room Air 21 LABS: Laboratory: Test 05/30/24 10:30 2/11/25 05:11 05/29/24 04:56 05/28/24 20:18 Range/Units Whole Blood Glucose 146 H 70-110 MG/DL White Blood Count 10.8 4.8-10.8 K/uL Red Blood Count 2.79 L 4.50-6.20 MIL/uL Hemoglobin 8.6 #L 14.0-18.0 g/dL Hematocrit 26.7 L 42-54 % Mean Corpuscular Volume 95.7 79-99 fL Mean Corpuscular Hemoglobin 30.8 27.0-33.0 pg Mean Corpuscular Hemoglobin Concent 32.2 32.0-36.0 g/dL Red Cell Distribution Width 16.7 H 11.0-15.5 % Platelet Count 195 130-400 K/uL Mean Platelet Volume 11.3 H 7.5-10.5 fL Immature Granulocyte % (Auto) 1.5 H 0-1 % Neutrophils (%) (Auto) 71.0 40.0-77.0 % Lymphocytes (%) (Auto) 15.2 L 21.0-51.0 % Monocytes (%) (Auto) 10.7 3.0-13.0 % Eosinophils (%) (Auto) 1.0 0.0-8.0 % Basophils (%) (Auto) 0.6 0.0-5.0 % Neutrophils # (Auto) 7.7 1.8-7.7 K/uL Lymphocytes # (Auto) 1.6 1.0-4.8 K/uL Monocytes # (Auto) 1.2 H 0.1-1.0 K/uL Eosinophils # (Auto) 0.11 0.00-0.70 K/uL Basophils # (Auto) 0.07 0.00-0.20 K/uL Absolute Immature Granulocyte (auto 0.16 0-1 K/uL Nucleated Red Blood Cells 0.0 0.0-0.19 % Sodium Level 145 136-145 mmol/L Potassium Level 4.3 3.5-5.1 mmol/L Chloride Level 107 101-111 mmol/L Carbon Dioxide Level 24 21-32 mmol/L Blood Urea Nitrogen 51 H 7-18 mg/dL Creatinine 7.1 H 0.5-1.3 mg/dL Glomerular Filtration Rate Calc 8 >90 mL/min Random Glucose 183 H 70-105 mg/dL Total Calcium 7.7 L 8.5-10.1 mg/dL Magnesium Level 1.80 1.80-2.40 mg/dL Total Bilirubin 0.4 0.2-1.0 mg/dL Aspartate Amino Transf (AST/SGOT) 13 10-37 U/L Alanine Aminotransferase (ALT/SGPT) 10 L 12-78 U/L Alkaline Phosphatase 81 50-136 U/L Total Protein 6.1 6.0-8.3 g/dL Albumin 2.4 L 3.5-5.0 g/dL Vancomycin Level 17.0 L 20.0-30.0 mcg/mL Bedside Glucose Comment Notified Nurse Test 05/28/24 15:23 Range/Units Influenza Type A Antigen Negative For Type A NEGATIVE Influenza Type B Antigen Negative For Type B NEGATIVE Current Medications Medications (Trade) Dose Ordered Sig/Idania Route PRN Reason Start Time Stop Time Status Last Admin Dose Admin Acetaminophen (TYLenol 325MG TAB) 650 mg Q6H PRN PO MILD PAIN (1-3) 05/22/24 10:30 06/21/24 10:29 Acetaminophen/ Hydrocodone Bitart (NORco 5/325MG) 1 tab Q8H PRN PO MODERATE PAIN (4-6) 05/22/24 23:00 05/27/24 22:59 DC 05/22/24 22:51 1 TAB Aspirin (Aspirin 81mg Chew Tab) 81 mg DAILY PO 05/23/24 09:00 05/23/24 00:22 DC Aspirin (Aspirin 81mg Chew Tab) 81 mg DAILY PO 05/23/24 17:00 06/22/24 16:59 05/28/24 09:08 81 MG Atorvastatin Calcium (LIPItor 40MG) 40 mg HS PO 05/23/24 21:00 06/22/24 20:59 05/29/24 21:42 40 MG Benzonatate (Tessalon 100mg Caps) 100 mg Q8H PRN PO cough 05/28/24 14:00 06/27/24 13:59 05/29/24 16:37 100 MG Cefepime HCl (MAXipime 1 GM vial) 1 gm Q24H IVPB 05/22/24 11:00 05/26/24 12:08 DC 05/25/24 10:19 1 GM Cetirizine HCl (ZYRtec 5 MG TABLET) 5 mg DAILY PO 05/29/24 09:00 06/28/24 08:59 05/29/24 16:40 5 MG Clopidogrel Bisulfate (plaVIX 75MG) 75 mg DAILY PO 05/23/24 13:00 05/23/24 00:22 DC Clopidogrel Bisulfate (plaVIX 75MG) 75 mg DAILY PO 05/23/24 17:00 05/23/24 14:21 DC Clopidogrel Bisulfate (plaVIX 75MG) 75 mg DAILY PO 05/24/24 09:00 06/23/24 08:59 05/28/24 09:08 75 MG Heparin Sodium (Porcine) (HEParin 5,000 UNIT VIAL) 10,000 unit AD IRRIG 05/24/24 13:00 06/23/24 12:59 Hydralazine HCl (APRESOLine 20MG INJ) 5 mg Q6H PRN IV ADMINISTER FOR SBP > 160 05/22/24 12:30 06/21/24 12:29 05/29/24 04:52 5 MG Insulin Glargine (LANtus 100 UNITS/ML 10 ML VIAL) 15 units HS SQ 05/28/24 21:00 06/27/24 20:59 Insulin Human Regular (humuLIN R 100 UNIT/ML 3ML) INSULIN SLIDING SCAL... ACHS SQ 05/22/24 11:30 05/27/24 12:19 DC 05/27/24 06:05 7 UNIT Insulin Human Regular (humuLIN R 100 UNIT/ML 3ML) INSULIN SLIDING SCAL... ACHS SQ 05/27/24 16:30 06/26/24 16:29 05/28/24 20:41 16 UNIT Meropenem (Merrem 1gm) 1 gm Q24H IV 05/26/24 14:00 05/26/24 16:30 DC Meropenem (Merrem 1gm) 1 gm Q24H IV 05/26/24 18:00 06/16/24 17:59 05/29/24 18:54 1 GM Montelukast Sodium (SinguLAIR) 10 mg HS PO 05/28/24 21:00 06/27/24 20:59 05/29/24 21:42 10 MG Nifedipine (adALAT 30MG) 60 mg Q24H PO 05/22/24 11:00 05/22/24 19:16 DC Nifedipine (adALAT 30MG) 60 mg Q24H PO 05/22/24 19:30 06/21/24 19:29 05/29/24 21:42 60 MG Ondansetron HCl (zoFRAN 4MG INJ) 4 mg Q6H PRN IVP NAUSEA/VOMITING 05/22/24 10:30 06/21/24 10:29 Pantoprazole Sodium (PROTonix 40MG TAB) 40 mg DAILY PO 05/23/24 09:00 06/22/24 08:59 05/28/24 09:08 40 MG Pharmacy Profile Note (Pharmacy Communication) 1 each ONCE MISC 05/22/24 11:00 05/22/24 10:57 DC Prednisone (deltaSONE/ oraSONE 5MG) 5 mg BID PO 05/22/24 21:00 06/21/24 20:59 05/29/24 21:42 5 MG Sodium Chloride 1,000 ml @ 0 mls/hr ONCE IV 05/27/24 12:00 06/26/24 11:59 05/27/24 11:49 333 MLS/HR Vancomycin HCl (Vancomycin 750mg) 750 mg QMOWEFR[DIALYSIS] IVPB 05/26/24 16:00 05/26/24 17:33 DC Vancomycin HCl (Vancomycin 750mg) 750 mg QMOWEFR[DIALYSIS] IVPB 05/27/24 16:00 05/29/24 16:23 DC 05/27/24 15:33 750 MG Vancomycin HCl (Vancomycin 750mg) 750 mg QTUTHSA[DIALYSIS] IVPB 05/30/24 16:00 06/06/24 15:59 Vancomycin HCl (Vancomycin Protocol) 1 each AD IV 05/22/24 11:00 06/05/24 10:59 Vitamin B Complex/ Vit C/Folic Acid (Nephrovite Tablet) 1 cap DAILY PO 05/23/24 09:00 06/22/24 08:59 05/25/24 10:19 1 CAP DIAGNOSTICS / RADIOLOGY: [ ] ASSESSMENT: Dislodged PermCath, POA s/p PermCath placement 05/23/2024 by IR History of ESRD on home hemodialysis therapy, POA osteomyelitis per foot x-ray 05/22/2024 Right heel culture growing Enterococcus faecalis, Streptococcus MRSA, Pseudomonas aeruginosa 05/22/2024 Chronic leukocytosis, POA Underlying immunosuppression on outpatient treatment with steroids and Remicade, POA Nonhealing diabetic foot ulcer/heel ulcer with associated deep eschar/necrotic region, being followed by Dr. Jackson as outpatient, POA Anemia of renal disease, POA Underlying history of type 2 diabetes mellitus, POA History of chronic prednisone use as outpatient, POA Uncontrolled Hypertension, POA Hyperlipidemia, POA History of peripheral arterial disease, POA Prior history of angioplasty to right popliteal artery and distal SFA by Dr. Arzate on 01/24/2024, POA History penicillin allergy, POA Noncompliance PLAN: Continue admission in the medical-surgical floor Continue telemetry monitoring Continue renal dialysis diet NPO this morning for BKA Pending BKA by Dr. Montes today Consults: Hide Grader: Dr Jackson, shipping agent DR Crabtree , depot manager DR Mera , surgeon , ID refused , 2nd opinion Dr. Edmonds ; Dr Montes Antibiotics: Vancomycin, IV Merrem IV Blood cultures negative Wound cultures growing Prevotella Melaninogenica, Enterococcus faecalis, Staphylococcus aureus MRSA, Pseudomonas aeruginosa Continue local wound care nonweightbearing Continue to work with physical therapy Continue dialysis3 times a week via PermCath. TTS schedule Avoid NSAIDs renal dose medication, fluid restriction daily weight Continue SSI, basal insulin Continue glucometer checks before meals and at bedtime Continue hypoglycemic protocol Monitor a.m. labs PRN Treatment - Add when necessary meds for nausea, vomiting, pain, constipation, insomnia. DVT/GI prophylaxis- Continue heparin and Protonix at current doses. Full CODE STATUS This document was generated in part using voice recognition software, occasional wrong word or sound alike substitutions may have occurred due to the inherent limitations of voice recognition software. Read the chart carefully and recogn ize using context, where the substitutions have occurred. Although every effort was made to edit the content, associate research scientist and typing errors may occur SIRIA SCHWAB APRN May 30, 2024 10:39
--- NOTE | 2024-05-30 10:40 | NUR ---
RLE DRESSING INPLACE INTACT Addendum: 05/30/24 at 1042 by DARION BRINK RN RN Amended: Links added.
[2024-05-30] MEDS ORDERED: ePHEDrine SULFate 50 MG/ML AMPULE ONE (11:05)
[2024-05-30] MEDS ORDERED: EPINEPHrine PF 1MG (1:1,000) 1 MG/ML AMP ONE (11:07)
--- NOTE | 2024-05-30 14:10 | NUR ---
PT IN ROOM FROM PROCEDURE PT AOX4, DRESSING WITH JACKI WRAP TO RIGHT BKA, HEMOVAC WITH SANGUINEOUS DRAIN. PILLOW UNDERNEATH RIGHT LOW EXTREMITY. 22G TO LEFT HAND THAT WAS INSERT IN OPERATING ROOM. POST VS IN PLACED AND STABLE, 3L NC. SPOUSE AT BEDSIDE. BED LOW AND LOCKED, SIDERAILS X3 UP, CALL LIGHT WITHIN REACH.
--- NOTE | 2024-05-30 15:00 | NUR ---
PT REFUSED DIALYSIS TODAY, STATES HE FEELS TOO TIRED AFTER HIS SURGERY. EDUCATED THE PT ON CONSEQUENCES OF REFUSING TX TODAY, PT VERBALIZED UNDERSTANDING. PT ALSO REFUSED TO SIGN REFUSAL OF TX FORM. TWO NURSES SIGNED WITNESSES. SPOKE TO KINSEY ACEVEDO AND MADE AWARE OF REFUSAL. NEW ORDERS RECEIVED; DIALYZE PT IN AM TOMORROW MORNING 05/31/24. PRIMARY CARE NURSE, SIDDHARTH ALVARADO AWARE AND DIALYSIS CLINICAL FAMILY SUPPORT COORDINATOR, Terence SWANN RN
[2024-05-30] MEDS ORDERED: VANCOMYCIN 750MG VIAL IVPB SCH (16:00)
--- NOTE | 2024-05-30 17:30 | NUR ---
PT REFUSED TO GET BS CHECK
--- NOTE | 2024-05-30 20:44 | PN ---
NEPHROLOGY FOLLOWUP SUBJECTIVE: The patient offers no new complaint. He underwent right below-knee amputation. OBJECTIVE: GENERAL: The patient is not in any acute distress. He is awake, alert. VITAL SIGNS: Blood pressure 153/71, respirations 16, pulse 96, temperature 97.3. LUNGS: Clear on auscultation and inspection. HEART: Normal cardiac sound. ABDOMEN: Soft, nondistended. EXTREMITIES: No edema. Right below-knee amputation. LABORATORY DATA: WBC count is 10.8, hemoglobin 8.7. Sodium 145, potassium 4.3, BUN 51, and creatinine 7.1. ASSESSMENT: * End-stage renal disease. The patient was dialyzed regularly on TTS. Due to surgery, he was not dialyzed today. * Diabetes mellitus type 2 with nephropathy. * Hypertension with renal manifestation. * Right below-knee amputation. * Anemia and chronic kidney disease. PLAN: The patient will be dialyzed tomorrow. Continue current diet. Monitor hemoglobin levels and transfuse packed RBCs as needed. Further recommendations as I follow the patient. TID: [id number] RECEIPT: [id number]
[2024-05-31] VITALS (24 sets, daily range): BP systolic 126–159; BP diastolic 63–87; PULSE 80–89; RESP 14–20; TEMP 96.7–98.8; O2SAT 94–97
[2024-05-31] MEDS: HYDROcodone/APAP 5/325 1 TAB TABLET PO PRN (02:14)
[2024-05-31] MEDS: morPHINE 4 MG SYG IVP PRN ×2 (02:20→05:18)
[2024-05-31] MEDS ORDERED: HYDROcodone/APAP 5/325 1 TAB TABLET PO PRN (02:30)
[2024-05-31 05:35] LABS: BASOPHILS # (AUTO) 0.02 K/uL (0.00-0.20); BASOPHILS % (AUTO) 0.2 % (0.0-5.0); HEMATOCRIT 27.2 % (42-54); IMMATURE GRANULOCYTE ABSOLUTE 0.09 K/uL (0-1); LYMPHOCYTES # (AUTO) 1.1 K/uL (1.0-4.8); MEAN CORPUSCULAR HEMOGLOBIN 30.8 pg (27.0-33.0); MEAN CORPUSCULAR HGB CONC 32.7 g/dL (32.0-36.0); MEAN CORPUSCULAR VOLUME 94.1 fL (79-99); MONOCYTES # (AUTO) 0.7 K/uL (0.1-1.0); MONOCYTES % (AUTO) 6.2 % (3.0-13.0); NEUTROPHILS # (AUTO) 10.1 K/uL (1.8-7.7); NEUTROPHILS % (AUTO) 83.9 % (40.0-77.0); PLATELET COUNT (AUTO) 190 K/uL (130-400); RED BLOOD CELL COUNT(AUTO) 2.89 MIL/uL (4.50-6.20); RED CELL DISTRIBUTION WIDTH 16.7 % (11.0-15.5)
[2024-05-31 05:51] LABS: ALBUMIN 2.4 g/dL (3.5-5.0); BILIRUBIN,TOTAL 0.4 mg/dL (0.2-1.0); MAGNESIUM 2.1 mg/dL (1.80-2.40); POTASSIUM 4.6 mmol/L (3.5-5.1)
[2024-05-31] MEDS: hydroMORPHone 0.5 MG SYG (0.5MG/0.5ML) IVP ONE (05:55)
[2024-05-31 06:11] LABS: CREATININE 8.2 mg/dL (0.5-1.3)
--- NOTE | 2024-05-31 08:35 | PN ---
[facility] PROGRESS NOTE Date of Service: May 31, 2024 Time of Service: 08:35 SUBJECTIVE: 59-year-old male with underlying history of hypertension, hyperlipidemia, peripheral arterial disease, type 2 diabetes mellitus, ESRD on chronic home hemodialysis of Wednesday, Wednesday, Wednesday, history of chronic diabetic foot ulcer of the right heel being followed by Podiatry as outpatient, psoriasis on chronic outpatient steroids and Remicade infusion who presented to the ER after his PermCath for hemodialysis was dislodged. Dislodgement happened on Wednesday and patient decided to come to the ER today for further evaluation. Patient states that similar episode has happened about six months ago and patient had PermCath placed by IR. history of chronic diabetic foot/ heel ulcer being followed by Dr. Jackson as outpatient. He was seen by Dr. Jackson recently and has been taking oral outpatient antibiotics with doxycycline. He is supposed to see Dr. Mata with Infectious Disease on 05/26/2024 given persistent nonresolving infection. S/P PermCath placement 05/23/2024 by IR. S/p right BKA with Dr. Montes 05/30/2024 Today at bedside evaluation patient is alert and oriented x3. right lower extremity is elevated over pillow. Drains in place. Having dialysis during my assessment. Patient reports pain to right lower extremity amputation site. Tolerating with current pain management. Received a dose of Dilaudid in a.m., morphine and hydrocodone. Latest vital signs were stable. White count is 12, H&H 8.9/27.2, CMP is stable. Dr. Montes recommends to drains in place for two days and then remove. Continue wound care. Continue IV Merrem and Vancomycin. Patient will start to work with physical therapy at orthopedic's direction. REVIEW OF SYSTEMS CONSTITUTIONAL: reports that permacath was dislodged today NEUROLOGICAL: Denies headache, amaurosis fugax, motor weakness, sensory deficit, vertigo/spinning sensation, gait abnormalities, or tremors. ENT: No hearing loss, otalgia, otorrhea, rhinitis, rhinorrhea, hoarseness, or sore throat. CARDIOVASCULAR: Denies any exertional angina, dyspnea on exertion, orthopnea, paroxysmal nocturnal dyspnea, palpitations, life-threatening arrhythmias, claudication. PULMONARY: Denies any shortness of breath, cough, phlegm/sputum, hemoptysis, pleuritic chest pain. SLEEP: Denies morning headaches, daytime somnolence or napping. Denies difficulty falling asleep, staying asleep, waking from sleep. Denies knowledge of snoring. GASTROINTESTINAL: Denies any type of dysphagia to either liquids or solids. Denies nausea, vomiting, pyrosis, early satiety, abdominal pain, diarrhea, constipation, or changes in stool consistency or caliber. Denies coffee-ground emesis, hematemesis, hematochezia, or melanotic stools. GENITOURINARY: Denies frequency, urgency, nocturia, hematuria or incontinence (Storage/Irritative symptoms.) Low urinary stream, straining to void, urinary intermittency or hesitancy, splitting of the voiding stream, terminal dribbling. ENDOCRINOLOGIC: Denies polyuria, polydipsia, polyphagia or heat/cold intolerances. HEMATOLOGIC: Denies thrombophilia/previous clots, or coagulopathy/bleeding diso rders. ONCOLOGIC: Denies personal history of malignancy. DERMATOLOGIC: ulcer involving the right foot heel PSYCHIATRIC: Denies any suicidal or homicidal ideation. Denies hallucinations. PHYSICAL EXAM GENERAL APPEARANCE: The patient is awake, alert, and oriented, in no acute cardiopulmonary distress. NEUROLOGICAL: Cranial nerves II-XII grossly intact. Motor is 5/5 in bilateral upper and lower extremities proximal to distal. No sensory deficits. HEENT: Face is symmetric. Pupils are equal and reactive. Extraocular movements are intact. NECK: Supple. No JVD. No thyromegaly. No submental, submandibular, pre- /postauricular, occipital or supraclavicular lymphadenopathy. CHEST: Normal chest expansion. No Telemetry. LUNGS: Absence of any rales, rhonchi or any wheezing. CARDIOVASCULAR: Regular. S1 and S2 normal. No appreciable rubs, murmurs or gallops. ABDOMEN: Soft, nontender, and nondistended. There is no rebound, voluntary guarding, or rigidity. : Deferred. No Hutson. EXTREMITIES: Patient has heel has a large area of eschar with possible necrotic region SKIN: No skin breakdown. Vital Signs (last 8hr) Date Time Temp Pulse Resp B/P (MAP) Pulse Ox O2 Delivery O2 Flow Rate FiO2 05/31/24 07:00 97.5 89 20 149/84 96 Room Air 21 05/31/24 04:00 98.8 89 17 126/63 96 Room Air 21 05/31/24 03:24 98.8 84 17 126/63 96 Room Air 21 LABS: Laboratory: Test 05/31/24 05:21 05/31/24 05:17 Range/Units White Blood Count 12.0 H 4.8-10.8 K/uL Red Blood Count 2.89 L 4.50-6.20 MIL/uL Hemoglobin 8.9 L 14.0-18.0 g/dL Hematocrit 27.2 L 42-54 % Mean Corpuscular Volume 94.1 79-99 fL Mean Corpuscular Hemoglobin 30.8 27.0-33.0 pg Mean Corpuscular Hemoglobin Concent 32.7 32.0-36.0 g/dL Red Cell Distribution Width 16.7 H 11.0-15.5 % Platelet Count 190 130-400 K/uL Mean Platelet Volume 11.2 H 7.5-10.5 fL Immature Granulocyte % (Auto) 0.7 0-1 % Neutrophils (%) (Auto) 83.9 H 40.0-77.0 % Lymphocytes (%) (Auto) 9.0 L 21.0-51.0 % Monocytes (%) (Auto) 6.2 3.0-13.0 % Eosinophils (%) (Auto) 0.0 0.0-8.0 % Basophils (%) (Auto) 0.2 0.0-5.0 % Neutrophils # (Auto) 10.1 H 1.8-7.7 K/uL Lymphocytes # (Auto) 1.1 1.0-4.8 K/uL Monocytes # (Auto) 0.7 0.1-1.0 K/uL Eosinophils # (Auto) 0.00 0.00-0.70 K/uL Basophils # (Auto) 0.02 0.00-0.20 K/uL Absolute Immature Granulocyte (auto 0.09 0-1 K/uL Nucleated Red Blood Cells 0.0 0.0-0.19 % White Cell Morphology Comment See comments Sodium Level 140 136-145 mmol/L Potassium Level 4.6 3.5-5.1 mmol/L Chloride Level 105 101-111 mmol/L Carbon Dioxide Level 23 21-32 mmol/L Blood Urea Nitrogen 70 H 7-18 mg/dL Creatinine 8.2 *H 0.5-1.3 mg/dL Glomerular Filtration Rate Calc 7 >90 mL/min Random Glucose 316 H 70-105 mg/dL Total Calcium 7.6 L 8.5-10.1 mg/dL Magnesium Level 2.10 1.80-2.40 mg/dL Total Bilirubin 0.4 0.2-1.0 mg/dL Aspartate Amino Transf (AST/SGOT) 15 10-37 U/L Alanine Aminotransferase (ALT/SGPT) 9 L 12-78 U/L Alkaline Phosphatase 70 50-136 U/L Total Protein 6.0 6.0-8.3 g/dL Albumin 2.4 L 3.5-5.0 g/dL Whole Blood Glucose 295 H 70-110 MG/DL Current Medications Medications (Trade) Dose Ordered Sig/Idania Route PRN Reason Start Time Stop Time Status Last Admin Dose Admin Acetaminophen (TYLenol 325MG TAB) 650 mg Q6H PRN PO MILD PAIN (1-3) 05/22/24 10:30 06/21/24 10:29 Acetaminophen/ Hydrocodone Bitart (NORco 5/325MG) 1 tab Q4H PRN PO MODERATE PAIN (4-6) 05/31/24 02:30 06/05/24 02:29 Acetaminophen/ Hydrocodone Bitart (NORco 5/325MG) 1 tab Q8H PRN PO MODERATE PAIN (4-6) 05/22/24 23:00 05/27/24 22:59 DC 05/22/24 22:51 1 TAB Acetaminophen/ Hydrocodone Bitart (NORco 5/325MG) 2 tab Q4H PRN PO SEVERE PAIN (7-10) 05/31/24 02:30 06/05/24 02:29 05/31/24 04:31 2 TAB Aspirin (Aspirin 81mg Chew Tab) 81 mg DAILY PO 05/23/24 09:00 05/23/24 00:22 DC Aspirin (Aspirin 81mg Chew Tab) 81 mg DAILY PO 05/23/24 17:00 06/22/24 16:59 05/28/24 09:08 81 MG Atorvastatin Calcium (LIPItor 40MG) 40 mg HS PO 05/23/24 21:00 06/22/24 20:59 05/30/24 20:47 40 MG Benzonatate (Tessalon 100mg Caps) 100 mg Q8H PRN PO cough 05/28/24 14:00 06/27/24 13:59 05/29/24 16:37 100 MG Cefepime HCl (MAXipime 1 GM vial) 1 gm Q24H IVPB 05/22/24 11:00 05/26/24 12:08 DC 05/25/24 10:19 1 GM Cetirizine HCl (ZYRtec 5 MG TABLET) 5 mg DAILY PO 05/29/24 09:00 06/28/24 08:59 05/29/24 16:40 5 MG Clopidogrel Bisulfate (plaVIX 75MG) 75 mg DAILY PO 05/23/24 13:00 05/23/24 00:22 DC Clopidogrel Bisulfate (plaVIX 75MG) 75 mg DAILY PO 05/23/24 17:00 05/23/24 14:21 DC Clopidogrel Bisulfate (plaVIX 75MG) 75 mg DAILY PO 05/24/24 09:00 06/23/24 08:59 05/28/24 09:08 75 MG Heparin Sodium (Porcine) (HEParin 5,000 UNIT VIAL) 10,000 unit AD IRRIG 05/24/24 13:00 06/23/24 12:59 Hydralazine HCl (APRESOLine 20MG INJ) 5 mg Q6H PRN IV ADMINISTER FOR SBP > 160 05/22/24 12:30 06/21/24 12:29 05/29/24 04:52 5 MG Insulin Glargine (LANtus 100 UNITS/ML 10 ML VIAL) 15 units HS SQ 05/28/24 21:00 06/27/24 20:59 05/30/24 20:54 15 UNITS Insulin Human Regular (humuLIN R 100 UNIT/ML 3ML) INSULIN SLIDING SCAL... ACHS SQ 05/22/24 11:30 05/27/24 12:19 DC 05/27/24 06:05 7 UNIT Insulin Human Regular (humuLIN R 100 UNIT/ML 3ML) INSULIN SLIDING SCAL... ACHS SQ 05/27/24 16:30 06/26/24 16:29 05/30/24 20:57 12 UNIT Meropenem (Merrem 1gm) 1 gm Q24H IV 05/26/24 14:00 05/26/24 16:30 DC Meropenem (Merrem 1gm) 1 gm Q24H IV 05/26/24 18:00 06/16/24 17:59 05/30/24 18:05 1 GM Montelukast Sodium (SinguLAIR) 10 mg HS PO 05/28/24 21:00 06/27/24 20:59 05/30/24 20:47 10 MG Morphine Sulfate (morPHINE 4MG SYG) 4 mg Q2H PRN IVP SEVERE PAIN (7-10) 05/31/24 05:30 06/07/24 02:29 05/31/24 05:18 4 MG Morphine Sulfate (morPHINE 4MG SYG) 4 mg Q4H PRN IVP SEVERE PAIN (7-10) 05/31/24 02:30 05/31/24 05:03 DC 05/31/24 02:20 4 MG Nifedipine (adALAT 30MG) 60 mg Q24H PO 05/22/24 11:00 05/22/24 19:16 DC Nifedipine (adALAT 30MG) 60 mg Q24H PO 05/22/24 19:30 06/21/24 19:29 05/29/24 21:42 60 MG Ondansetron HCl (zoFRAN 4MG INJ) 4 mg Q6H PRN IVP NAUSEA/VOMITING 05/22/24 10:30 06/21/24 10:29 Pantoprazole Sodium (PROTonix 40MG TAB) 40 mg DAILY PO 05/23/24 09:00 06/22/24 08:59 05/28/24 09:08 40 MG Pharmacy Profile Note (Pharmacy Communication) 1 each ONCE MISC 05/22/24 11:00 05/22/24 10:57 DC Prednisone (deltaSONE/ oraSONE 5MG) 5 mg BID PO 05/22/24 21:00 06/21/24 20:59 05/30/24 20:47 5 MG Sodium Chloride 1,000 ml @ 0 mls/hr ONCE IV 05/27/24 12:00 06/26/24 11:59 05/27/24 11:49 333 MLS/HR Vancomycin HCl (Vancomycin 750mg) 750 mg QMOWEFR[DIALYSIS] IVPB 05/31/24 16:00 06/10/24 15:59 Vancomycin HCl (Vancomycin 750mg) 750 mg QMOWEFR[DIALYSIS] IVPB 05/26/24 16:00 05/26/24 17:33 DC Vancomycin HCl (Vancomycin 750mg) 750 mg QMOWEFR[DIALYSIS] IVPB 05/27/24 16:00 05/29/24 16:23 DC 05/27/24 15:33 750 MG Vancomycin HCl (Vancomycin 750mg) 750 mg QTUTHSA[DIALYSIS] IVPB 05/30/24 16:00 05/30/24 15:59 DC Vancomycin HCl (Vancomycin Protocol) 1 each AD IV 05/22/24 11:00 06/05/24 10:59 Vitamin B Complex/ Vit C/Folic Acid (Nephrovite Tablet) 1 cap DAILY PO 05/23/24 09:00 06/22/24 08:59 05/25/24 10:19 1 CAP DIAGNOSTICS / RADIOLOGY: [ ] ASSESSMENT: Dislodged PermCath, POA s/p PermCath placement 05/23/2024 by IR History of ESRD on home hemodialysis therapy, POA osteomyelitis per foot x-ray 05/22/2024 Right heel culture growing Enterococcus faecalis, Streptococcus MRSA, Pseudomonas aeruginosa 05/22/2024 Chronic leukocytosis, POA Underlying immunosuppression on outpatient treatment with steroids and Remicade, POA Nonhealing diabetic foot ulcer/heel ulcer with associated deep eschar/necrotic region, being followed by Dr. Jackson as outpatient, POA Anemia of renal disease, POA Underlying history of type 2 diabetes mellitus, POA History of chronic prednisone use as outpatient, POA Uncontrolled Hypertension, POA Hyperlipidemia, POA History of peripheral arterial disease, POA Prior history of angioplasty to right popliteal artery and distal SFA by Dr. Arzate on 01/24/2024, POA History penicillin allergy, POA Noncompliance PLAN: Continue admission in the medical-surgical floor Continue telemetry monitoring Continue renal dialysis diet S/p right BKA by Dr. Montes on 05/30/2024 Drains to be removed two days after procedure Consults: Operations Processor: Dr Jackson, statement processor DR Crabtree , nurse transplant DR Mera , surgeon , ID refused , 2nd opinion Dr. Edmonds ; Dr Montes Antibiotics: Vancomycin, IV Merrem IV Blood cultures negative Wound cultures growing Prevotella Melaninogenica, Enterococcus faecalis, Staphylococcus aureus MRSA, Pseudomonas aeruginosa Continue local wound care nonweightbearing Continue to work with physical therapy Continue dialysis3 times a week via PermCath. TTS schedule Avoid NSAIDs renal dose medication, fluid restriction daily weight Continue dual antiplatelet therapy with aspirin and Plavix, continue statin therapy Continue SSI, basal insulin Continue glucometer checks before meals and at bedtime Continue hypoglycemic protocol Monitor a.m. labs PRN Treatment - Add when necessary meds for nausea, vomiting, pain, constipation, insomnia. DVT/GI prophylaxis- Continue heparin and Protonix at current doses. Full CODE STATUS Disposition: Home once medically cleared for discharge This document was generated in part using voice recognition software, occasional wrong word or sound alike substitutions may have occurred due to the inherent limitations of voice recognition software. Read the chart carefully and recognize using context, where the substitutions have occurred. Although every effort was made to edit the content, model engine mechanic and typing errors may occur I have seen and evaluated the patient alongside the nurse practitioner/physician business office assistant. I agree with the assessment and plan as above. SIRIA SCHWAB APRN May 31, 2024 08:35 CASI LOVE IV, MD May 31, 2024 13:24
[2024-05-31] MEDS: SUGAMMADEX SODIUM 200 MG/2 ML VIAL IV ONE (13:32)
--- NOTE | 2024-05-31 14:35 | PN ---
PROGRESS NOTE Date of Service: May 31, 2024 Time of Service: 14:34 SUBJECTIVE: No new concerns. Denies fever chills and pain. Examined at bedside. HD today. REVIEW OF SYSTEMS CONSTITUTIONAL: Denies fever, chills, or fatigue. HEAD/FACE: No signs of trauma. EENT: Denies eye pain, blurred vision, double vision, or light sensitivity. RESPIRATORY: Denies shortness of breath, cough, wheezing CARDIOVASCULAR: Denies chest pain, palpitation, syncope peripheral arterial sclerosis. GASTROINTESTINAL/ABDOMINAL: Denies abdominal pain, constipation, diarrhea, nausea or vomiting GENITOURINARY: Denies dysuria or hematuria. 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 INTEGUMENTARY: Gangrenous ulcer to the posterior aspect of the right foot and heel. NEUROLOGICAL/PSYCH: Denies anxiety, depression, heat or cold intolerance. PHYSICAL EXAM EYES: Anicteric. Pupils equal and reactive. HENT: No oral thrush seen, moist Oral mucosa NECK: Supple, no JVD or thyromegaly. LUNGS: Good air entry. No rales, no rhonchi. CARDIOVASCULAR: S1, S2 regular. No murmur heard. ABDOMEN: Soft, non tender, bowel sounds present, no organomegaly CENTRAL NERVOUS SYSTEM: Awake, alert, oriented x 3. No focal deficits. SKIN: Ulcer with gangrene to the right foot stump. LYMPHATICS: No peripheral lymphadenopathy MUSCULOSKELETAL: Edema erythema and swelling of the right stump with a history of Syme's amputation. EXTREMITIES: Gangrenous ulcer to the posterior and plantar aspect of the right foot stump. BACK: No deformity, no pressure ulcer. GENITOURINARY: No dysuria or hematuria Vital Signs (last 8hr) Date Time Temp Pulse Resp B/P (MAP) Pulse Ox O2 Delivery O2 Flow Rate FiO2 05/31/24 12:38 96.6 86 16 145/77 Room Air 05/31/24 12:15 96.6 85 16 147/87 Room Air 05/31/24 12:10 84 16 135/76 Room Air 05/31/24 11:55 86 16 159/85 Room Air 05/31/24 11:47 98.1 88 20 149/74 96 Room Air 21 05/31/24 11:40 82 16 158/85 Room Air 2/12/25 11:25 80 16 136/78 Room Air 05/31/24 11:10 83 16 150/79 Room Air 05/31/24 10:55 85 16 155/84 Room Air 05/31/24 10:40 88 14 149/74 Room Air 05/31/24 10:25 84 14 140/80 Room Air 05/31/24 10:10 83 14 147/78 Room Air 05/31/24 09:55 86 16 149/81 Room Air 05/31/24 09:40 85 16 142/76 Room Air 05/31/24 09:25 85 16 139/76 Room Air 05/31/24 09:07 97.5 89 16 127/69 Room Air 05/31/24 08:40 97.5 87 16 145/77 Room Air 05/31/24 07:00 97.5 89 20 149/84 96 Room Air 21 LABS: Laboratory: Test 05/31/24 10:56 05/31/24 05:21 Range/Units Whole Blood Glucose 149 H 70-110 MG/DL White Blood Count 12.0 H 4.8-10.8 K/uL Red Blood Count 2.89 L 4.50-6.20 MIL/uL Hemoglobin 8.9 L 14.0-18.0 g/dL Hematocrit 27.2 L 42-54 % Mean Corpuscular Volume 94.1 79-99 fL Mean Corpuscular Hemoglobin 30.8 27.0-33.0 pg Mean Corpuscular Hemoglobin Concent 32.7 32.0-36.0 g/dL Red Cell Distribution Width 16.7 H 11.0-15.5 % Platelet Count 190 130-400 K/uL Mean Platelet Volume 11.2 H 7.5-10.5 fL Immature Granulocyte % (Auto) 0.7 0-1 % Neutrophils (%) (Auto) 83.9 H 40.0-77.0 % Lymphocytes (%) (Auto) 9.0 L 21.0-51.0 % Monocytes (%) (Auto) 6.2 3.0-13.0 % Eosinophils (%) (Auto) 0.0 0.0-8.0 % Basophils (%) (Auto) 0.2 0.0-5.0 % Neutrophils # (Auto) 10.1 H 1.8-7.7 K/uL Lymphocytes # (Auto) 1.1 1.0-4.8 K/uL Monocytes # (Auto) 0.7 0.1-1.0 K/uL Eosinophils # (Auto) 0.00 0.00-0.70 K/uL Basophils # (Auto) 0.02 0.00-0.20 K/uL Absolute Immature Granulocyte (auto 0.09 0-1 K/uL Nucleated Red Blood Cells 0.0 0.0-0.19 % White Cell Morphology Comment See comments Sodium Level 140 136-145 mmol/L Potassium Level 4.6 3.5-5.1 mmol/L Chloride Level 105 101-111 mmol/L Carbon Dioxide Level 23 21-32 mmol/L Blood Urea Nitrogen 70 H 7-18 mg/dL Creatinine 8.2 *H 0.5-1.3 mg/dL Glomerular Filtration Rate Calc 7 >90 mL/min Random Glucose 316 H 70-105 mg/dL Total Calcium 7.6 L 8.5-10.1 mg/dL Magnesium Level 2.10 1.80-2.40 mg/dL Total Bilirubin 0.4 0.2-1.0 mg/dL Aspartate Amino Transf (AST/SGOT) 15 10-37 U/L Alanine Aminotransferase (ALT/SGPT) 9 L 12-78 U/L Alkaline Phosphatase 70 50-136 U/L Total Protein 6.0 6.0-8.3 g/dL Albumin 2.4 L 3.5-5.0 g/dL DIAGNOSTICS / RADIOLOGY: DIRECTOR OF INCOME TAX PROCEDURE REQUEST REASON: DISLODGED PERMACATH. COMPARISON: None TECHNIQUE: Fluoroscopic guidance with placement of left internal jugular-right atrial tunneled Duramax dialysis catheter. FINDINGS: The right internal jugular vein is occluded at the junction with the superior vena cava and right subclavian vein. Left internal jugular vein is patent. PROCEDURE: Informed consent obtained the patient following explanation of risk, benefits, complications. Timeout performed by nursing staff. Continuous monitoring was performed of the patient during the procedure I nursing personnel including cardiovascular status, oxygenation, respiration. Patient received intravenous titrated doses of Versed and fentanyl during the procedure administered by nursing personnel. Right neck and left neck were prepped and draped in sterile fashion. Ultrasound of the right neck demonstrates large amount thrombus within the proximal internal jugular vein. Following local anesthesia with 1% lidocaine, access gained into the right internal jugular vein under direct ultrasound guidance. Guidewire could not be passed beyond the area of obstruction at the junction with the SVC. This site was abandoned and attention was made to the left internal jugular venous access site. Following local anesthesia with 1% lidocaine subcutaneous, needle access into the left internal jugular vein obtained with ultrasound guidance. Fine guidewire placement, microcatheter access was passed over the guidewire. J-wire was then passed through the sheath in past the right atrium into the inferior vena cava. Fashion dilatation performed, tunneled Duramax catheter 32 cm in length, was passed over guidewire and the tip of the catheter positioned within the right atrium. Both ports were flushed, aspirated, flushed, heparinized, capped, clamped. Catheter secured to the skin with retention suture and sterile dressing. Patient tolerated procedure well without evidence of comp occasions. Total fluoroscopic time: 3.7 minutes. Estimated blood loss: Less than 8 ml. IMPRESSION: Placement of 32 cm tunneled Duramax dialysis catheter with the tip positioned within the right atrium. Access from the left internal jugular vein. Catheter is ready for immediate use. ASSESSMENT: ESRD DM2 with nephropathy HTN with renal manifestation Hyperkalemia Anemia of CKD Osteomyelitis PLAN: HD today No change to POC Monitor Electrolytes Renal Diet CHEPE as per protocol with HD treatments Continue home medications LALITHA KOCH May 31, 2024 14:35
--- NOTE | 2024-05-31 16:06 | NUR ---
CM NOTE: PT EVAL PENDING PT S/P RIGHT BKA W/DR DAVIS. CM REACHED OUT TO DR DAVIS RE: PT EVAL. PENDING MD RESPONSE. PRIMARY NURSE TONI ALSO MADE AWARE PT PENDING PT EVAL. CM TO CONTINUE TO FOLLOW UP.
[2024-05-31] MEDS: VANCOMYCIN 750MG VIAL IVPB SCH (18:20)
--- NOTE | 2024-05-31 21:14 | PN ---
SUBJECTIVE: The patient is status post right leg below-knee amputation, postop day #1. The patient is so far doing good. Pain is under control. No acute events overnight. PHYSICAL EXAMINATION: GENERAL: The patient is awake, alert, oriented x 3. VITAL SIGNS: Heart rate 86, blood pressure is 143/78, oxygen saturation 100%, respiratory rate is 17. The patient is afebrile. EXTREMITIES: Examination of the right leg shows dressings are clean and dry. Drain bulb showing serosanguineous fluid. No obvious signs of infection noted. Mild swelling present. ASSESSMENT AND PLAN: The patient is okay for discharge from orthopedic standpoint tomorrow. Drain will be removed tomorrow. Then, adequate pain control. Keep the incision clean and dry. Follow up in Orthopedic Clinic in 3 weeks from the date of surgery. Any problems, come back and see us immediately. TID: [id number] RECEIPT: [id number]
[2024-06-01] VITALS (7 sets, daily range): BP systolic 146–190; BP diastolic 69–96; PULSE 78–118; RESP 14–28; TEMP 97.4–99.2; O2SAT 95–100
--- NOTE | 2024-06-01 01:23 | OP ---
DATE OF PROCEDURE: 05/30/2024 PREOPERATIVE DIAGNOSIS: Right leg acute peripheral vascular disease. POSTOPERATIVE DIAGNOSIS: Right leg acute peripheral vascular disease. PROCEDURE PERFORMED: Right leg above-knee amputation. INTRAVENOUS FLUIDS: As per anesthesia. ESTIMATED BLOOD LOSS: Minimal. COMPLICATIONS: None. SPECIMENS SENT: None. IMPLANTS USED: None. ANTIBIOTICS: The patient is on scheduled antibiotics. ANESTHESIA: General. INDICATIONS FOR PROCEDURE: This is an elderly patient who has been diagnosed with acute peripheral vascular disease and has had a right foot amputation done. The patient however has a wound measuring about 7 x 4 cm. The wound is not healing well. The patient has been having this wound for many months and Ortho has been consulted for possible amputation. I had a detailed conversation with the patient regarding his condition and told the risks and benefits. All questions and concerns were answered in detail. The patient verbalized understanding and preferred a right leg below-knee amputation. The patient has been evaluated by rubber boots and shoes repairer in the past to improve the circulation, but not much benefits. So, informed consent was obtained. The patient was correctly identified in the preoperative holding area and the correct patient, correct procedure site, correct extremity and the correct plan was confirmed and marked. DESCRIPTION OF PROCEDURE: The patient was taken to the operating room and placed in supine position, underwent general . After that, repeat timeout was done, identifying the correct patient, correct procedure site, correct extremity and the correct plan. Subsequently, we started our procedure by marking the skin of the right leg below the knee about a hand fingerbreadth with a posterior flap based incision. The right lower extremity was exsanguinated using tourniquet and the tourniquet was set up to 300 mmHg. Skin and subcutaneous tissue were incised. Blunt dissection was carried out. Anterolaterally, we used Bovie to cut through the anterolateral group of muscles. Peroneal artery was identified and doubly ligated and cut. Fibular shaft was identified and at the planned fibular site, we did an osteotomy using saw. Then, we identified anterior tibial artery, doubly ligated and cut. Deep peroneal nerve was pulled sharply and cut. We then osteotomized the tibial shaft and at the planned site, we did an osteotomy of the tibia. The amputation was completed using the amputation knife. Posterior tibial artery was identified and doubly ligated. Tibial nerve was pulled sharply and cut. Chamfer cuts of the anterior tibial cortex were made. The wounds were thoroughly washed. The tourniquet was released. All bleeding points were cauterized. Wounds were then planned for closure over a drain with 0 Vicryl, 2-0 Vicryls and nyla. Soft tissue dressing was applied. The patient tolerated the procedure well. No complications encountered. TID: [id number] RECEIPT: [id number]
[2024-06-01 04:49] LABS: BASOPHILS # (AUTO) 0.03 K/uL (0.00-0.20); BASOPHILS % (AUTO) 0.2 % (0.0-5.0); EOSINOPHILS # (AUTO) 0.07 K/uL (0.00-0.70); EOSINOPHILS % (AUTO) 0.6 % (0.0-8.0); HEMATOCRIT 28.9 % (42-54); LYMPHOCYTES # (AUTO) 1.5 K/uL (1.0-4.8); LYMPHOCYTES % (AUTO) 12.2 % (21.0-51.0); MEAN CORPUSCULAR HGB CONC 31.8 g/dL (32.0-36.0); MEAN CORPUSCULAR VOLUME 94.1 fL (79-99); MONOCYTES # (AUTO) 0.8 K/uL (0.1-1.0); MONOCYTES % (AUTO) 6.9 % (3.0-13.0); NEUTROPHILS # (AUTO) 9.7 K/uL (1.8-7.7); NEUTROPHILS % (AUTO) 79.3 % (40.0-77.0); PLATELET COUNT (AUTO) 198 K/uL (130-400); RED BLOOD CELL COUNT(AUTO) 3.07 MIL/uL (4.50-6.20); RED CELL DISTRIBUTION WIDTH 16.2 % (11.0-15.5); WHITE BLOOD COUNT (AUTO) 12.3 K/uL (4.8-10.8)
[2024-06-01 05:03] LABS: CREATININE 6.3 mg/dL (0.5-1.3); POTASSIUM 3.8 mmol/L (3.5-5.1)
--- NOTE | 2024-06-01 09:01 | PN ---
[facility] PROGRESS NOTE Date of Service: Jun 01, 2024 Time of Service: 08:56 SUBJECTIVE: 59-year-old male with underlying history of hypertension, hyperlipidemia, peripheral arterial disease, type 2 diabetes mellitus, ESRD on chronic home hemodialysis of Wednesday, Wednesday, Wednesday, history of chronic diabetic foot ulcer of the right heel being followed by Podiatry as outpatient, psoriasis on chronic outpatient steroids and Remicade infusion who presented to the ER after his PermCath for hemodialysis was dislodged. Dislodgement happened on Wednesday and patient decided to come to the ER today for further evaluation. Patient states that similar episode has happened about six months ago and patient had PermCath placed by IR. history of chronic diabetic foot/ heel ulcer being followed by Dr. Jackson as outpatient. He was seen by Dr. Jackson recently and has been taking oral outpatient antibiotics with doxycycline. He is supposed to see Dr. Mata with Infectious Disease on 05/26/2024 given persistent nonresolving infection. S/P PermCath placement 05/23/2024 by IR. S/p right BKA with Dr. Montes 05/30/2024 Today on bedside evaluation patient was found awake alert and oriented x 3. The power chart reviewed, vital signs, laboratory tests, imaging test and medicati ons have been reviewed. Patient with a reported elevated blood pressure of 190 systolic. Continue BP management at Nephrology's direction. Continue IV Merrem and vancomycin. Orthopedic surgeon recommends patient's start gabapentin 300 mg p.o. daily secondary to right BKA pain. This morning's white count is 12.3, H&H is stable 9.2/28.9. BMP is stable. Patient to continue working with physical therapy. Continue hemodialysis. Continue current pain management at orthopedics direction. Drain to right BKA to be removed today. REVIEW OF SYSTEMS CONSTITUTIONAL: reports that permacath was dislodged today NEUROLOGICAL: Denies headache, amaurosis fugax, motor weakness, sensory deficit, vertigo/spinning sensation, gait abnormalities, or tremors. ENT: No hearing loss, otalgia, otorrhea, rhinitis, rhinorrhea, hoarseness, or sore throat. CARDIOVASCULAR: Denies any exertional angina, dyspnea on exertion, orthopnea, paroxysmal nocturnal dyspnea, palpitations, life-threatening arrhythmias, claudication. PULMONARY: Denies any shortness of breath, cough, phlegm/sputum, hemoptysis, pleuritic chest pain. SLEEP: Denies morning headaches, daytime somnolence or napping. Denies difficulty falling asleep, staying asleep, waking from sleep. Denies knowledge of snoring. GASTROINTESTINAL: Denies any type of dysphagia to either liquids or solids. Denies nausea, vomiting, pyrosis, early satiety, abdominal pain, diarrhea, constipation, or changes in stool consistency or caliber. Denies coffee-ground emesis, hematemesis, hematochezia, or melanotic stools. GENITOURINARY: Denies frequency, urgency, nocturia, hematuria or incontinence (Storage/Irritative symptoms.) Low urinary stream, straining to void, urinary intermittency or hesitancy, splitting of the voiding stream, terminal dribbling. ENDOCRINOLOGIC: Denies polyuria, polydipsia, polyphagia or heat/cold intolerances. HEMATOLOGIC: Denies thrombophilia/previous clots, or coagulopathy/bleeding disorders. ONCOLOGIC: Denies personal history of malignancy. DERMATOLOGIC: ulcer involving the right foot heel PSYCHIATRIC: Denies any suicidal or homicidal ideation. Denies hallucinations. PHYSICAL EXAM GENERAL APPEARANCE: The patient is awake, alert, and oriented, in no acute cardiopulmonary distress. NEUROLOGICAL: Cranial nerves II-XII grossly intact. Motor is 5/5 in bilateral upper and lower extremities proximal to distal. No sensory deficits. HEENT: Face is symmetric. Pupils are equal and reactive. Extraocular movements are intact. NECK: Supple. No JVD. No thyromegaly. No submental, submandibular, pre- /postauricular, occipital or supraclavicular lymphadenopathy. CHEST: Normal chest expansion. No Telemetry. LUNGS: Absence of any rales, rhonchi or any wheezing. CARDIOVASCULAR: Regular. S1 and S2 normal. No appreciable rubs, murmurs or gallops. ABDOMEN: Soft, nontender, and nondistended. There is no rebound, voluntary guarding, or rigidity. : Deferred. No Hutson. EXTREMITIES: Patient has heel has a large area of eschar with possible necrotic region SKIN: No skin breakdown. Vital Signs (last 8hr) Date Time Temp Pulse Resp B/P (MAP) Pulse Ox O2 Delivery O2 Flow Rate FiO2 06/01/24 08:00 98.8 99 20 190/84 94 Room Air 21 06/01/24 04:00 97.3 86 20 163/69 92 Room Air 06/01/24 04:00 97.3 84 20 163/69 92 Room Air LABS: Laboratory: Test 06/01/24 05:11 06/01/24 04:21 05/31/24 05:21 Range/Units Whole Blood Glucose 84 # 70-110 MG/DL White Blood Count 12.3 H 4.8-10.8 K/uL Red Blood Count 3.07 L 4.50-6.20 MIL/uL Hemoglobin 9.2 L 14.0-18.0 g/dL Hematocrit 28.9 L 42-54 % Mean Corpuscular Volume 94.1 79-99 fL Mean Corpuscular Hemoglobin 30.0 27.0-33.0 pg Mean Corpuscular Hemoglobin Concent 31.8 L 32.0-36.0 g/dL Red Cell Distribution Width 16.2 H 11.0-15.5 % Platelet Count 198 130-400 K/uL Mean Platelet Volume 10.7 H 7.5-10.5 fL Immature Granulocyte % (Auto) 0.8 0-1 % Neutrophils (%) (Auto) 79.3 H 40.0-77.0 % Lymphocytes (%) (Auto) 12.2 L 21.0-51.0 % Monocytes (%) (Auto) 6.9 3.0-13.0 % Eosinophils (%) (Auto) 0.6 0.0-8.0 % Basophils (%) (Auto) 0.2 0.0-5.0 % Neutrophils # (Auto) 9.7 H 1.8-7.7 K/uL Lymphocytes # (Auto) 1.5 1.0-4.8 K/uL Monocytes # (Auto) 0.8 0.1-1.0 K/uL Eosinophils # (Auto) 0.07 0.00-0.70 K/uL Basophils # (Auto) 0.03 0.00-0.20 K/uL Absolute Immature Granulocyte (auto 0.10 0-1 K/uL Nucleated Red Blood Cells 0.0 0.0-0.19 % Sodium Level 139 136-145 mmol/L Potassium Level 3.8 3.5-5.1 mmol/L Chloride Level 100 L 101-111 mmol/L Carbon Dioxide Level 31 21-32 mmol/L Blood Urea Nitrogen 44 #H 7-18 mg/dL Creatinine 6.3 H 0.5-1.3 mg/dL Glomerular Filtration Rate Calc 9 >90 mL/min Random Glucose 75 # 70-105 mg/dL Total Calcium 7.7 L 8.5-10.1 mg/dL White Cell Morphology Comment See comments Magnesium Level 2.10 1.80-2.40 mg/dL Total Bilirubin 0.4 0.2-1.0 mg/dL Aspartate Amino Transf (AST/SGOT) 15 10-37 U/L Alanine Aminotransferase (ALT/SGPT) 9 L 12-78 U/L Alkaline Phosphatase 70 50-136 U/L Total Protein 6.0 6.0-8.3 g/dL Albumin 2.4 L 3.5-5.0 g/dL Current Medications Medications (Trade) Dose Ordered Sig/Idania Route PRN Reason Start Time Stop Time Status Last Admin Dose Admin Acetaminophen (TYLenol 325MG TAB) 650 mg Q6H PRN PO MILD PAIN (1-3) 05/22/24 10:30 06/21/24 10:29 Acetaminophen/ Hydrocodone Bitart (NORco 5/325MG) 1 tab Q4H PRN PO MODERATE PAIN (4-6) 05/31/24 02:30 06/05/24 02:29 Acetaminophen/ Hydrocodone Bitart (NORco 5/325MG) 1 tab Q8H PRN PO MODERATE PAIN (4-6) 05/22/24 23:00 05/27/24 22:59 DC 05/22/24 22:51 1 TAB Acetaminophen/ Hydrocodone Bitart (NORco 5/325MG) 2 tab Q4H PRN PO SEVERE PAIN (7-10) 05/31/24 02:30 06/05/24 02:29 05/31/24 15:01 2 TAB Aspirin (Aspirin 81mg Chew Tab) 81 mg DAILY PO 05/23/24 09:00 05/23/24 00:22 DC Aspirin (Aspirin 81mg Chew Tab) 81 mg DAILY PO 05/23/24 17:00 06/22/24 16:59 05/31/24 13:33 81 MG Atorvastatin Calcium (LIPItor 40MG) 40 mg HS PO 05/23/24 21:00 06/22/24 20:59 05/31/24 21:41 40 MG Benzonatate (Tessalon 100mg Caps) 100 mg Q8H PRN PO cough 05/28/24 14:00 06/27/24 13:59 05/29/24 16:37 100 MG Cefepime HCl (MAXipime 1 GM vial) 1 gm Q24H IVPB 05/22/24 11:00 05/26/24 12:08 DC 05/25/24 10:19 1 GM Cetirizine HCl (ZYRtec 5 MG TABLET) 5 mg DAILY PO 05/29/24 09:00 06/28/24 08:59 05/29/24 16:40 5 MG Clopidogrel Bisulfate (plaVIX 75MG) 75 mg DAILY PO 05/23/24 13:00 05/23/24 00:22 DC Clopidogrel Bisulfate (plaVIX 75MG) 75 mg DAILY PO 05/23/24 17:00 05/23/24 14:21 DC Clopidogrel Bisulfate (plaVIX 75MG) 75 mg DAILY PO 05/24/24 09:00 06/23/24 08:59 05/31/24 13:33 75 MG Gabapentin (NEURontin 300 MG CAP) 300 mg DAILY PO 06/01/24 09:00 07/01/24 08:59 Heparin Sodium (Porcine) (HEParin 5,000 UNIT VIAL) 10,000 unit AD IRRIG 05/24/24 13:00 06/23/24 12:59 Hydralazine HCl (APRESOLine 20MG INJ) 5 mg Q6H PRN IV ADMINISTER FOR SBP > 160 05/22/24 12:30 06/21/24 12:29 05/29/24 04:52 5 MG Insulin Glargine (LANtus 100 UNITS/ML 10 ML VIAL) 15 units HS SQ 05/28/24 21:00 06/27/24 20:59 05/30/24 20:54 15 UNITS Insulin Human Regular (humuLIN R 100 UNIT/ML 3ML) INSULIN SLIDING SCAL... ACHS SQ 05/22/24 11:30 05/27/24 12:19 DC 05/27/24 06:05 7 UNIT Insulin Human Regular (humuLIN R 100 UNIT/ML 3ML) INSULIN SLIDING SCAL... ACHS SQ 05/27/24 16:30 06/26/24 16:29 05/31/24 21:43 6 UNIT Meropenem (Merrem 1gm) 1 gm Q24H IV 05/26/24 14:00 05/26/24 16:30 DC Meropenem (Merrem 1gm) 1 gm Q24H IV 05/26/24 18:00 06/16/24 17:59 05/31/24 21:41 1 GM Montelukast Sodium (SinguLAIR) 10 mg HS PO 05/28/24 21:00 06/27/24 20:59 05/31/24 21:41 10 MG Morphine Sulfate (morPHINE 4MG SYG) 4 mg Q2H PRN IVP SEVERE PAIN (7-10) 05/31/24 05:30 06/07/24 02:29 06/01/24 01:35 4 MG Morphine Sulfate (morPHINE 4MG SYG) 4 mg Q4H PRN IVP SEVERE PAIN (7-10) 05/31/24 02:30 05/31/24 05:03 DC 05/31/24 02:20 4 MG Nifedipine (adALAT 30MG) 60 mg Q24H PO 05/22/24 11:00 05/22/24 19:16 DC Nifedipine (adALAT 30MG) 60 mg Q24H PO 05/22/24 19:30 06/21/24 19:29 05/31/24 21:40 30 MG Ondansetron HCl (zoFRAN 4MG INJ) 4 mg Q6H PRN IVP NAUSEA/VOMITING 05/22/24 10:30 06/21/24 10:29 Pantoprazole Sodium (PROTonix 40MG TAB) 40 mg DAILY PO 05/23/24 09:00 06/22/24 08:59 05/31/24 13:34 40 MG Pharmacy Profile Note (Pharmacy Communication) 1 each ONCE MISC 05/22/24 11:00 05/22/24 10:57 DC Prednisone (deltaSONE/ oraSONE 5MG) 5 mg BID PO 05/22/24 21:00 06/21/24 20:59 05/31/24 21:41 5 MG Sodium Chloride 1,000 ml @ 0 mls/hr ONCE IV 05/27/24 12:00 06/26/24 11:59 05/31/24 11:46 100 MLS/HR Vancomycin HCl (Vancomycin 750mg) 750 mg QMOWEFR[DIALYSIS] IVPB 05/31/24 16:00 06/10/24 15:59 05/31/24 18:20 750 MG Vancomycin HCl (Vancomycin 750mg) 750 mg QMOWEFR[DIALYSIS] IVPB 05/26/24 16:00 05/26/24 17:33 DC Vancomycin HCl (Vancomycin 750mg) 750 mg QMOWEFR[DIALYSIS] IVPB 05/27/24 16:00 05/29/24 16:23 DC 05/27/24 15:33 750 MG Vancomycin HCl (Vancomycin 750mg) 750 mg QTUTHSA[DIALYSIS] IVPB 05/30/24 16:00 05/30/24 15:59 DC Vancomycin HCl (Vancomycin Protocol) 1 each AD IV 05/22/24 11:00 06/05/24 10:59 Vitamin B Complex/ Vit C/Folic Acid (Nephrovite Tablet) 1 cap DAILY PO 05/23/24 09:00 06/22/24 08:59 05/25/24 10:19 1 CAP DIAGNOSTICS / RADIOLOGY: [ ] ASSESSMENT: Dislodged PermCath, POA s/p PermCath placement 05/23/2024 by IR History of ESRD on home hemodialysis therapy, POA osteomyelitis per foot x-ray 05/22/2024 Right heel culture growing Enterococcus faecalis, Streptococcus MRSA, Pseu domonas aeruginosa 05/22/2024 Chronic leukocytosis, POA Underlying immunosuppression on outpatient treatment with steroids and Remicade, POA Nonhealing diabetic foot ulcer/heel ulcer with associated deep eschar/necrotic region, being followed by Dr. Jackson as outpatient, POA Anemia of renal disease, POA Underlying history of type 2 diabetes mellitus, POA History of chronic prednisone use as outpatient, POA Uncontrolled Hypertension, POA Hyperlipidemia, POA History of peripheral arterial disease, POA Prior history of angioplasty to right popliteal artery and distal SFA by Dr. Arzate on 01/24/2024, POA History penicillin allergy, POA Noncompliance PLAN: Continue admission in the medical-surgical floor Continue telemetry monitoring Continue renal dialysis diet S/p right BKA by Dr. Montes on 05/30/2024 Dr. Montes recommends Drains be removed today, keep incision clean and dry, continue wound management,4 x 4 and Giuseppe wrap as needed Consults: Knockout Machine Operator: Dr Jackson, still operator whiskey DR Crabtree , associate pathologist DR Mera , surgeon , ID refused , 2nd opinion Dr. Edmonds ; Dr Montes Antibiotics: Vancomycin, IV Merrem IV We will transition to p.o. antibiotics on discharge Blood cultures negative Wound cultures growing Prevotella Melaninogenica, Enterococcus faecalis, Staphylococcus aureus MRSA, Pseudomonas aeruginosa Continue local wound care nonweightbearing Continue to work with physical therapy Continue dialysis3 times a week via PermCath. TTS schedule Avoid NSAIDs renal dose medication, fluid restriction daily weight Continue dual antiplatelet therapy with aspirin and Plavix, continue statin therapy Continue SSI, basal insulin Continue glucometer checks before meals and at bedtime Continue hypoglycemic protocol Monitor a.m. labs PRN Treatment - Add when necessary meds for nausea, vomiting, pain, constipation, insomnia. DVT/GI prophylaxis- Continue heparin and Protonix at current doses. Full CODE STATUS Disposition: Home once medically cleared for discharge This document was generated in part using voice recognition software, occasional wrong word or sound alike substitutions may have occurred due to the inherent limitations of voice recognition software. Read the chart carefully and recognize using context, where the substitutions have occurred. Although every effort was made to edit the content, outside repairer special and typing errors may occur SIRIA SCHWAB APRN Jun 01, 2024 09:01
--- NOTE | 2024-06-01 10:00 | NUR ---
PAIN MED REGIMEN REVIEWED WITH SIRIA NURSE PRACTIONER FOR CONTINUATION OR DISCONTINUE STATED TO CONTINUE WITH CURRENT PAIN REGIMEN.
[2024-06-01] MEDS: GABAPENTIN 300 MG CAPSULE PO SCH (10:26)
--- NOTE | 2024-06-01 10:46 | NUR ---
PT hold- pt request due to pain. Pt requesting eval after lunch. Tristen RN was notified.
--- NOTE | 2024-06-01 11:00 | NUR ---
DR GONZALEZ NOTIFIED ME HE HAD ADDED AN ADDITIONAL PRN PAIN MED TO HELP CONTROL PATIENTS CURRENT PAIN TO POST OP DAY 3 STUMP TO RT LEG BKA.
[2024-06-01] MEDS: hydroMORPHone 0.5 MG SYG (0.5MG/0.5ML) IVP PRN (12:58)
--- NOTE | 2024-06-01 12:58 | NUR ---
PATIENT COMPLAINING OF PAIN LEVEL OF 8-9 TO RT STUMP NEW PRN PAIN MED ADMINISTERED DILAUDID 0.2 MG AND WASTED 0.3 MG MED DOSE WITNESSED BY STEPHANIE BRITO BSN WHO ASSISSTED IN THE WASTING OF THE 0.3 MG.PATIENTS VSS. DRESSING TO RT STUMP PERFORMED AT THIS TIME , PATIENT STATES THAT HIS ACCORDION DRAIN (HEMOVAC )HAD FALLEN OUT , INCISION SITE CLEAN AND DRY AND INTACT, REDRESSED ASEPTICALLY AND WRAPPED WITH JACKI WRAP. DR DAVIS INFORMED OF PATIENTS DRAIN hEMOVAC AND THE CIRCUMSTANCE IT WAS FOUND IN. NOTIFIED WOUND ASSESSED FOR ANY DRAIN TUBING NONE FELT DRAIN APPEARS TO BE INTACT.NO NEW ORDERS.ERWIN HAD BEEN PATENT THROUGHOUT AM HOURS.
--- NOTE | 2024-06-01 15:00 | NUR ---
PT follow up note. Patient difficult to arouse. Family present concerned patient renuka be in too much pain to tolerate PT this pm. Educated family the importance of mobility. Patient, although groggy, requested PT not be done today. Tristen, nurse informed. PT team to follow.
--- NOTE | 2024-06-01 15:15 | NUR ---
DR GONZALEZ PAGED PATIENT IS LETHARGIC AND AROUSABLE BUT FALLS BACK IN TO SLEEP AND APPEARS EXTREMELY GROGGY . DR GONZALEZ WITH NEW ORDERS FOR NARCAN 0.4 AND CARRIED OUT.
--- NOTE | 2024-06-01 15:30 | NUR ---
DR RAMACHANDRAN AND DR GONZALEZ IN ROOM AND ASSESSED PATIENT POST NARCAN PATIENT IS AWAKE AND ALERT AND VSS STAURATION IS 96% ON 2 L VIA N/C , PER MD DISCONTINUE IV NARCOTICS AND CONTINUE ONLY PO MEDS FOR PAIN AND NO PRN PAIN MEDS FOR THE NEXT SIX HOURS AND MONITOR PATIENT. PATIENT UPSET HE WAS GIVEN NARCAN STATES HE DID NOT NEED IT.FULLY AWAKE NOW WILL CONTINUE TO MONITOR.
[2024-06-01] MEDS: NALoxone HCL 0.4 MG/1 ML ML IVP ONE (15:31)
[2024-06-01] MEDS ORDERED: hydroMORPHone 0.5 MG SYG (0.5MG/0.5ML) IVP PRN (16:00)
--- NOTE | 2024-06-01 16:00 | NUR ---
PATIENT STILL AWAKE IN BED SAT 96% . BP STABLE
--- NOTE | 2024-06-01 18:30 | NUR ---
PATIENT SLEEPING BUT AROUSABLE O2 SAT VIA PULSE OXIMETER IS AT 95%
--- NOTE | 2024-06-01 20:23 | PN ---
FOLLOWUP NOTE SUBJECTIVE: The patient offers no major complaints. Apparently, he was profoundly asleep as he got narcotics, responded to ____. OBJECTIVE: GENERAL: The patient is not in any major acute distress. He is awake, alert, responsive. VITAL SIGNS: Blood pressure is 163/69, respiration is 20, pulse 84, temperature 97.3. LUNGS: Clear on auscultation and inspection. HEART: Normal cardiac sound. ABDOMEN: Soft, nondistended. EXTREMITIES: No edema. LABORATORY DATA: WBC count is 12.3, hemoglobin 9.2. Sodium 139, potassium 3.8, BUN 44, creatinine of 6.3. ASSESSMENT: * End-stage renal disease. * Diabetes mellitus type 2 with nephropathy. * Hypertension with renal manifestation. * Status post right below-knee amputation. * Anemia. * Chronic kidney disease. PLAN: Plan is to continue present plan of care. Lower dose of analgesics. Dialysis ____ as per schedule. Continue renal diet. TID: [id number] RECEIPT: [id number]
--- NOTE | 2024-06-01 20:50 | NUR ---
PATIENT AROUSABLE UPON CALLING NAME. PATIENT AAOX4 MAKING JOKES. STABLE VITAL SIGNS. TEO ICE PULLER AT BEDSIDE ASSESSING PATIENT. ORDERS FOR ABGs STAT. PATIENT SpO2 AT 96% AT 2L VIA NASAL CANNULA. HOLD TRANSFER ORDERS FOR THE MOMENT
[2024-06-01 21:04] LABS: ABG BASE EXCESS -1.3 mmol/L (-2.0-3.0); ABG HCO3 26.4 mmol/L (21.0-28.0); ABG PCO2 56 mmHg (35-48); PO2, ARTERIAL BG 67.4 mmHg (83.0-108.0); VENT MODE, BG 2LNC (ROOM AIR)
[2024-06-02] VITALS (30 sets, daily range): BP systolic 111–166; BP diastolic 50–97; PULSE 84–117; RESP 16–26; TEMP 97.6–100.7; O2SAT 94–100
--- NOTE | 2024-06-02 00:11 | NUR ---
NURSING NOTES P.O SCHEDULED MEDS NOT GIVEN, PT. VERY DROWSY, AROUSABLE WHEN CALLED BUT WILL GO BACK TO SLEEP RIGHT AWAY. PT. WAS PLACED ON BIPAP PER RECOMMENDATION BY RT DUE TO ABG RESULT AND WAS APPROVED BY ZACK BRUCE (HOSPITALIST FAMILY NURSE PRACTITIONER). PT. O2 SAT 100%. WILL CONTINUE TO MONITOR.
[2024-06-02 05:06] LABS: BASOPHILS # (AUTO) 0.04 K/uL (0.00-0.20); BASOPHILS % (AUTO) 0.3 % (0.0-5.0); EOSINOPHILS # (AUTO) 0.02 K/uL (0.00-0.70); EOSINOPHILS % (AUTO) 0.2 % (0.0-8.0); HEMATOCRIT 30.1 % (42-54); IMMATURE GRANULOCYTE ABSOLUTE 0.13 K/uL (0-1); LYMPHOCYTES # (AUTO) 2.9 K/uL (1.0-4.8); LYMPHOCYTES % (AUTO) 21.8 % (21.0-51.0); MEAN CORPUSCULAR HEMOGLOBIN 30.3 pg (27.0-33.0); MEAN CORPUSCULAR HGB CONC 31.2 g/dL (32.0-36.0); MEAN CORPUSCULAR VOLUME 97.1 fL (79-99); MONOCYTES # (AUTO) 1.3 K/uL (0.1-1.0); MONOCYTES % (AUTO) 9.7 % (3.0-13.0); NEUTROPHILS # (AUTO) 8.8 K/uL (1.8-7.7); PLATELET COUNT (AUTO) 190 K/uL (130-400); RED CELL DISTRIBUTION WIDTH 16.2 % (11.0-15.5); WHITE BLOOD COUNT (AUTO) 13.1 K/uL (4.8-10.8)
[2024-06-02 05:21] LABS: POTASSIUM 4.8 mmol/L (3.5-5.1)
[2024-06-02 05:43] LABS: CREATININE 8.7 mg/dL (0.5-1.3)
--- NOTE | 2024-06-02 09:57 | PN ---
[facility] PROGRESS NOTE Date of Service: Jun 02, 2024 Time of Service: 09:47 SUBJECTIVE: 59-year-old male with underlying history of hypertension, hyperlipidemia, peripheral arterial disease, type 2 diabetes mellitus, ESRD on chronic home hemodialysis of Wednesday, Wednesday, Wednesday, history of chronic diabetic foot ulcer of the right heel being followed by Podiatry as outpatient, psoriasis on chronic outpatient steroids and Remicade infusion who presented to the ER after his PermCath for hemodialysis was dislodged. Dislodgement happened on Wednesday and patient decided to come to the ER today for further evaluation. Patient states that similar episode has happened about six months ago and patient had PermCath placed by IR. history of chronic diabetic foot/ heel ulcer being followed by Dr. Jackson as outpatient. He was seen by Dr. Jackson recently and has been taking oral outpatient antibiotics with doxycycline. He is supposed to see Dr. Mata with Infectious Disease on 05/26/2024 given persistent nonresolving infection. S/P PermCath placement 05/23/2024 by IR. S/p right BKA with Dr. Montes 05/30/2024 Today on bedside evaluation patient was found awake alert and oriented x 3. The power chart reviewed, vital signs, laboratory tests, imaging test and medicati ons have been reviewed. Patient was hard to arouse overnight, nephrology recommends lower dose of analgesics. Continue hemodialysis as scheduled. Continue IV Merrem and vancomycin. Continue gabapentin 300 mg p.o. daily secondary to right BKA pain at Dr. Montes's direction. Low-grade fever reported of 100 at midnight, latest vitals are stable, currently satting 96% on2 L nasal cannula. White count remained slightly elevated at 13.1, there is no bandemia. H&H is stable 9.4/30.1. BMP is stable. Continue IS hourly as tolerated. Pending chest x-ray. Continue working with physical therapy. Titrate off O2. we will follow up with Dr. Montes's discharge recommendations. REVIEW OF SYSTEMS CONSTITUTIONAL: reports that permacath was dislodged today NEUROLOGICAL: Denies headache, amaurosis fugax, motor weakness, sensory deficit, vertigo/spinning sensation, gait abnormalities, or tremors. ENT: No hearing loss, otalgia, otorrhea, rhinitis, rhinorrhea, hoarseness, or sore throat. CARDIOVASCULAR: Denies any exertional angina, dyspnea on exertion, orthopnea, paroxysmal nocturnal dyspnea, palpitations, life-threatening arrhythmias, claudication. PULMONARY: Denies any shortness of breath, cough, phlegm/sputum, hemoptysis, pleuritic chest pain. SLEEP: Denies morning headaches, daytime somnolence or napping. Denies difficulty falling asleep, staying asleep, waking from sleep. Denies knowledge of snoring. GASTROINTESTINAL: Denies any type of dysphagia to either liquids or solids. Denies nausea, vomiting, pyrosis, early satiety, abdominal pain, diarrhea, constipation, or changes in stool consistency or caliber. Denies coffee-ground emesis, hematemesis, hematochezia, or melanotic stools. GENITOURINARY: Denies frequency, urgency, nocturia, hematuria or incontinence (Storage/Irritative symptoms.) Low urinary stream, straining to void, urinary intermittency or hesitancy, splitting of the voiding stream, terminal dribbling. ENDOCRINOLOGIC: Denies polyuria, polydipsia, polyphagia or heat/cold intolerances. HEMATOLOGIC: Denies thrombophilia/previous clots, or coagulopathy/bleeding disorders. ONCOLOGIC: Denies personal history of malignancy. DERMATOLOGIC: ulcer involving the right foot heel PSYCHIATRIC: Denies any suicidal or homicidal ideation. Denies hallucinations. PHYSICAL EXAM GENERAL APPEARANCE: The patient is awake, alert, and oriented, in no acute cardiopulmonary distress. NEUROLOGICAL: Cranial nerves II-XII grossly intact. Motor is 5/5 in bilateral upper and lower extremities proximal to distal. No sensory deficits. HEENT: Face is symmetric. Pupils are equal and reactive. Extraocular movements are intact. NECK: Supple. No JVD. No thyromegaly. No submental, submandibular, pre- /postauricular, occipital or supraclavicular lymphadenopathy. CHEST: Normal chest expansion. No Telemetry. LUNGS: Absence of any rales, rhonchi or any wheezing. CARDIOVASCULAR: Regular. S1 and S2 normal. No appreciable rubs, murmurs or gallops. ABDOMEN: Soft, nontender, and nondistended. There is no rebound, voluntary guarding, or rigidity. : Deferred. No Hutson. EXTREMITIES: Patient has heel has a large area of eschar with possible necrotic region SKIN: No skin breakdown. Vital Signs (last 8hr) Date Time Temp Pulse Resp B/P (MAP) Pulse Ox O2 Delivery O2 Flow Rate FiO2 06/02/24 08:12 98.4 104 20 132/52 96 Nasal Cannula 2.0 06/02/24 06:50 105 18 N/Cannula Low lpm 2.0 28 06/02/24 04:00 99.5 94 20 122/55 93 BIPAP 06/02/24 02:59 20 40 LABS: Laboratory: Test 06/02/24 05:19 06/02/24 04:27 06/01/24 21:02 Range/Units Whole Blood Glucose 146 H 70-110 MG/DL White Blood Count 13.1 H 4.8-10.8 K/uL Red Blood Count 3.10 L 4.50-6.20 MIL/uL Hemoglobin 9.4 L 14.0-18.0 g/dL Hematocrit 30.1 L 42-54 % Mean Corpuscular Volume 97.1 79-99 fL Mean Corpuscular Hemoglobin 30.3 27.0-33.0 pg Mean Corpuscular Hemoglobin Concent 31.2 L 32.0-36.0 g/dL Red Cell Distribution Width 16.2 H 11.0-15.5 % Platelet Count 190 130-400 K/uL Mean Platelet Volume 11.2 H 7.5-10.5 fL Immature Granulocyte % (Auto) 1.0 0-1 % Neutrophils (%) (Auto) 67.0 40.0-77.0 % Lymphocytes (%) (Auto) 21.8 21.0-51.0 % Monocytes (%) (Auto) 9.7 3.0-13.0 % Eosinophils (%) (Auto) 0.2 0.0-8.0 % Basophils (%) (Auto) 0.3 0.0-5.0 % Neutrophils # (Auto) 8.8 H 1.8-7.7 K/uL Lymphocytes # (Auto) 2.9 1.0-4.8 K/uL Monocytes # (Auto) 1.3 H 0.1-1.0 K/uL Eosinophils # (Auto) 0.02 0.00-0.70 K/uL Basophils # (Auto) 0.04 0.00-0.20 K/uL Absolute Immature Granulocyte (auto 0.13 0-1 K/uL Nucleated Red Blood Cells 0.0 0.0-0.19 % Sodium Level 137 136-145 mmol/L Potassium Level 4.8 3.5-5.1 mmol/L Chloride Level 99 L 101-111 mmol/L Carbon Dioxide Level 27 21-32 mmol/L Blood Urea Nitrogen 61 H 7-18 mg/dL Creatinine 8.7 *H 0.5-1.3 mg/dL Glomerular Filtration Rate Calc 6 >90 mL/min Random Glucose 113 H 70-105 mg/dL Total Calcium 6.8 L 8.5-10.1 mg/dL Blood Gas Specimen Type Arterial Arterial Blood pH 7.290 L 7.350-7.450 Arterial Blood Partial Pressure CO2 56 H 35-48 mmHg Arterial Blood Partial Pressure O2 67.4 L 83.0-108.0 mmHg Arterial Blood HCO3 26.4 21.0-28.0 mmol/L Arterial Blood Oxygen Saturation 91.0 L 94.0-98.0 % Arterial Blood Base Excess -1.3 -2.0-3.0 mmol/L Blood Gas Temperature 37.0 35.5-37.0 CELSIUS Blood Gas Flow-by 2.00 0.00-15.00 L/min Blood Gas Vent Mode 2LNC ROOM AIR FiO2 28.0 % Blood Gas Specimen Comment RN, LB Current Medications Medications (Trade) Dose Ordered Sig/Idania Route PRN Reason Start Time Stop Time Status Last Admin Dose Admin Acetaminophen (TYLenol 325MG TAB) 650 mg Q6H PRN PO MILD PAIN (1-3) 05/22/24 10:30 06/21/24 10:29 Acetaminophen/ Hydrocodone Bitart (NORco 5/325MG) 1 tab Q4H PRN PO MODERATE PAIN (4-6) 05/31/24 02:30 06/05/24 02:29 Acetaminophen/ Hydrocodone Bitart (NORco 5/325MG) 1 tab Q8H PRN PO MODERATE PAIN (4-6) 05/22/24 23:00 05/27/24 22:59 DC 05/22/24 22:51 1 TAB Acetaminophen/ Hydrocodone Bitart (NORco 5/325MG) 2 tab Q4H PRN PO SEVERE PAIN (7-10) 05/31/24 02:30 06/01/24 10:57 DC 05/31/24 15:01 2 TAB Aspirin (Aspirin 81mg Chew Tab) 81 mg DAILY PO 05/23/24 09:00 05/23/24 00:22 DC Aspirin (Aspirin 81mg Chew Tab) 81 mg DAILY PO 05/23/24 17:00 06/22/24 16:59 06/01/24 10:26 81 MG Atorvastatin Calcium (LIPItor 40MG) 40 mg HS PO 05/23/24 21:00 06/22/24 20:59 05/31/24 21:41 40 MG Benzonatate (Tessalon 100mg Caps) 100 mg Q8H PRN PO cough 05/28/24 14:00 06/27/24 13:59 05/29/24 16:37 100 MG Cefepime HCl (MAXipime 1 GM vial) 1 gm Q24H IVPB 05/22/24 11:00 05/26/24 12:08 DC 05/25/24 10:19 1 GM Cetirizine HCl (ZYRtec 5 MG TABLET) 5 mg DAILY PO 05/29/24 09:00 06/28/24 08:59 06/01/24 10:26 5 MG Clopidogrel Bisulfate (plaVIX 75MG) 75 mg DAILY PO 05/23/24 13:00 05/23/24 00:22 DC Clopidogrel Bisulfate (plaVIX 75MG) 75 mg DAILY PO 05/23/24 17:00 05/23/24 14:21 DC Clopidogrel Bisulfate (plaVIX 75MG) 75 mg DAILY PO 05/24/24 09:00 06/23/24 08:59 06/01/24 10:27 75 MG Gabapentin (NEURontin 300 MG CAP) 300 mg DAILY PO 06/01/24 09:00 07/01/24 08:59 06/01/24 10:26 300 MG Heparin Sodium (Porcine) (HEParin 5,000 UNIT VIAL) 10,000 unit AD IRRIG 05/24/24 13:00 06/23/24 12:59 Hydralazine HCl (APRESOLine 20MG INJ) 5 mg Q6H PRN IV ADMINISTER FOR SBP > 160 05/22/24 12:30 06/21/24 12:29 05/29/24 04:52 5 MG Hydromorphone HCl (DiLAUDid 0.5MG INJ) 0.2 mg Q3H3 PRN IVP SEVERE PAIN (7-10) 06/01/24 11:00 06/01/24 15:43 DC 06/01/24 12:58 0.2 MG Hydromorphone HCl (DiLAUDid 0.5MG INJ) 0.2 mg Q6H PRN IVP SEVERE PAIN (7-10) 06/01/24 16:00 06/01/24 18:03 DC Insulin Glargine (LANtus 100 UNITS/ML 10 ML VIAL) 15 units HS SQ 05/28/24 21:00 06/27/24 20:59 05/30/24 20:54 15 UNITS Insulin Human Regular (humuLIN R 100 UNIT/ML 3ML) INSULIN SLIDING SCAL... ACHS SQ 05/22/24 11:30 05/27/24 12:19 DC 05/27/24 06:05 7 UNIT Insulin Human Regular (humuLIN R 100 UNIT/ML 3ML) INSULIN SLIDING SCAL... ACHS SQ 05/27/24 16:30 06/26/24 16:29 05/31/24 21:43 6 UNIT Meropenem (Merrem 1gm) 1 gm Q24H IV 05/26/24 14:00 05/26/24 16:30 DC Meropenem (Merrem 1gm) 1 gm Q24H IV 05/26/24 18:00 06/16/24 17:59 06/01/24 18:15 1 GM Montelukast Sodium (SinguLAIR) 10 mg HS PO 05/28/24 21:00 06/27/24 20:59 05/31/24 21:41 10 MG Morphine Sulfate (morPHINE 4MG SYG) 4 mg Q2H PRN IVP SEVERE PAIN (7-10) 05/31/24 05:30 06/01/24 10:57 DC 06/01/24 10:25 4 MG Morphine Sulfate (morPHINE 4MG SYG) 4 mg Q4H PRN IVP SEVERE PAIN (7-10) 05/31/24 02:30 05/31/24 05:03 DC 05/31/24 02:20 4 MG Nifedipine (adALAT 30MG) 60 mg Q24H PO 05/22/24 11:00 05/22/24 19:16 DC Nifedipine (adALAT 30MG) 60 mg Q24H PO 05/22/24 19:30 06/21/24 19:29 05/31/24 21:40 30 MG Ondansetron HCl (zoFRAN 4MG INJ) 4 mg Q6H PRN IVP NAUSEA/VOMITING 05/22/24 10:30 06/21/24 10:29 Pantoprazole Sodium (PROTonix 40MG TAB) 40 mg DAILY PO 05/23/24 09:00 06/22/24 08:59 06/01/24 10:26 40 MG Pharmacy Profile Note (Pharmacy Communication) 1 each ONCE MISC 05/22/24 11:00 05/22/24 10:57 DC Prednisone (deltaSONE/ oraSONE 5MG) 5 mg BID PO 05/22/24 21:00 06/21/24 20:59 06/01/24 10:26 5 MG Sodium Chloride 1,000 ml @ 0 mls/hr ONCE IV 05/27/24 12:00 06/26/24 11:59 05/31/24 11:46 100 MLS/HR Vancomycin HCl (Vancomycin 750mg) 750 mg QMOWEFR[DIALYSIS] IVPB 05/31/24 16:00 06/10/24 15:59 05/31/24 18:20 750 MG Vancomycin HCl (Vancomycin 750mg) 750 mg QMOWEFR[DIALYSIS] IVPB 05/26/24 16:00 05/26/24 17:33 DC Vancomycin HCl (Vancomycin 750mg) 750 mg QMOWEFR[DIALYSIS] IVPB 05/27/24 16:00 05/29/24 16:23 DC 05/27/24 15:33 750 MG Vancomycin HCl (Vancomycin 750mg) 750 mg QTUTHSA[DIALYSIS] IVPB 05/30/24 16:00 05/30/24 15:59 DC Vancomycin HCl (Vancomycin Protocol) 1 each AD IV 05/22/24 11:00 06/05/24 10:59 Vitamin B Complex/ Vit C/Folic Acid (Nephrovite Tablet) 1 cap DAILY PO 05/23/24 09:00 06/22/24 08:59 05/25/24 10:19 1 CAP DIAGNOSTICS / RADIOLOGY: [ ] ASSESSMENT: Dislodged PermCath, POA s/p PermCath placement 05/23/2024 by IR History of ESRD on home hemodialysis therapy, POA osteomyelitis per foot x-ray 05/22/2024 Right heel culture growing Enterococcus faecalis, Streptococcus MRSA, Pseudomonas aeruginosa 05/22/2024 Chronic leukocytosis, POA Underlying immunosuppression on outpatient treatment with steroids and Remicade, POA Nonhealing diabetic foot ulcer/heel ulcer with associated deep eschar/necrotic region, being followed by Dr. Jackson as outpatient, POA Anemia of renal disease, POA Underlying history of type 2 diabetes mellitus, POA History of chronic prednisone use as outpatient, POA Uncontrolled Hypertension, POA Hyperlipidemia, POA History of peripheral arterial disease, POA Prior history of angioplasty to right popliteal artery and distal SFA by Dr. Maira pierce on 01/24/2024, POA History penicillin allergy, POA Noncompliance PLAN: Continue admission in the medical-surgical floor Continue telemetry monitoring Continue renal dialysis diet S/p right BKA by Dr. Montes on 05/30/2024 Continue low dose of analgesics as per regional hr manager Dr. Montes recommends Drains be removed two days after surgery, keep incision clean and dry, continue wound management,4 x 4 and Giuseppe wrap as needed Consults: [facility] Pol[employer] Operator: Dr Jackson, orthodontic technician DR Crabtree , regional hr manager DR Mera , surgeon , ID refused , 2nd opinion Dr. Edmonds ; Dr Montes Continue supplemental O2 to keep O2 saturations above 92%, currently satting 96% on 2 L nasal cannula Please titrate down supplemental O2 to keep O2 sats >92%. DC if not needed. IS hourly as tolerated Pending today's chest x-ray Antibiotics: Vancomycin, IV Merrem IV , IV vancomycin on dialysis days We will transition to p.o. antibiotics on discharge Blood cultures negative Wound cultures growing Prevotella Melaninogenica, Enterococcus faecalis, Staphylococcus aureus MRSA, Pseudomonas aeruginosa Continue local wound care nonweightbearing Continue to work with physical therapy Continue dialysis3 times a week via [facility]. TTS schedule Avoid NSAIDs renal dose medication, fluid restriction daily weight Continue dual antiplatelet therapy with aspirin and Plavix, continue statin therapy Continue SSI, basal insulin Continue glucometer checks before meals and at bedtime Continue hypoglycemic protocol Monitor a.m. labs PRN Treatment - Add when necessary meds for nausea, vomiting, pain, constipation, insomnia. DVT/GI prophylaxis- Continue heparin and Protonix at current doses. Full CODE STATUS Disposition: Home once Dr. Montes clears for discharge Patient refuses placement This document was generated in part using voice recognition software, occasional wrong word or sound alike substitutions may have occurred due to the inherent limitations of voice recognition software. Read the chart carefully and recognize using context, where the substitutions have occurred. Although every effort was made to edit the content, ship captain and typing errors may occur SIRIA SCHWAB APRN Jun 02, 2024 09:57
--- NOTE | 2024-06-02 10:00 | NUR ---
Spoke with nurse, Lainey, regarding patient update. Patient still on hold as he remains drowsy, unable to stay awake. Patient is pending dialysis today as well. PT team to follow.
--- NOTE | 2024-06-02 11:07 | HMCIMG ---
CHEST 1VW HISTORY: Shortness of breath COMPARISON: 05/22/2024 FINDINGS: A frontal projection of the chest was obtained. No acute pulmonary infiltrates is seen. The heart is borderline enlarged. Left venous catheter is seen with distal tip in plane of the superior vena cava. Degenerative changes are seen. IMPRESSION: 1. No acute pulmonary infiltrate is seen.
[2024-06-02 12:25] LABS: ABG HCO3 23.7 mmol/L (21.0-28.0); ABG OXYGEN SATURATION 90.8 % (94.0-98.0); ABG PCO2 53 mmHg (35-48); ABG PH 7.266 (7.350-7.450); DEVICE COMMENT LB CLARA; PO2, ARTERIAL BG 68.1 mmHg (83.0-108.0); VENT MODE, BG NC (ROOM AIR)
[2024-06-02] MEDS: DOXYCYCLINE HYCLATE 100 MG TABLET PO SCH (14:00)
--- NOTE | 2024-06-02 14:20 | NUR ---
Patient pending IUC bed. Continues with lethargy and drowsiness. Continues on BIPAP. When awake patient becomes agitated and attempts to remove BIPAP, educated on the importance of continuing to wear the BIPAP. Family at bedside. Patient not alert enough at this time to take oral medications at this time.
[2024-06-02 14:59] LABS: ABG BASE EXCESS -2.2 mmol/L (-2.0-3.0); ABG HCO3 25.6 mmol/L (21.0-28.0); ABG OXYGEN SATURATION 94.1 % (94.0-98.0); ABG PCO2 56 mmHg (35-48); ABG PH 7.278 (7.350-7.450); DEVICE COMMENT LB CLARA; PO2, ARTERIAL BG 79.7 mmHg (83.0-108.0); VENT MODE, BG BIPAP 10-5 R18 (ROOM AIR)
[2024-06-02] MEDS: DOXYCYCLINE 100MG+NS 250ML 250 ML IV SCH (15:00)
--- NOTE | 2024-06-02 15:08 | NUR ---
Placed on AVAPS Mode: RR 22 VT 500 I.T 1.00 Fio2 50% Addendum: 06/02/24 at 1510 by REINA LION RT Amended: Links added.
--- NOTE | 2024-06-02 15:10 | NUR ---
Patient placed on a non-rebreather mask at 15L o2 for ICU transfer to room 205, RT brought in the patients BiPAP and patient was transferred from non-rebreather to BiPAP. Patient tolerated the transfer well. Bedside report given to ALISHA Hinton.
--- NOTE | 2024-06-02 15:35 | CONS ---
[facility] CONSULTATION NOTE Date Patient Seen: Jun 02, 2024 Time of Visit: 15:24 Supervising Physician: Willie Pavon MD Reason for Consultation: Critical care management Primary Care Physician: Dr Chuck Olmedo MD Outpatient Specialists: Inpatient Consults: Dr Jackson, Dr Oden, Dr Mera, Dr Montes, Dr Edmonds PROBLEM LIST: Acute hypoxic and Hypercapnic respiratory failure not POA Opioid induced respiratory depression Metabolic encephalopathy, not POA Dislodged PermCath, POA s/p left side chest wall Permacth placement 05/23/24 History of ESRD on home hemodialysis therapy, POA osteomyelitis per foot x-ray 05/22/2024 S/P Rt BKA 05/22/24 Right heel culture growing Enterococcus faecalis, Streptococcus MRSA, Pseudomonas aeruginosa 05/22/2024 Chronic leukocytosis, POA Underlying immunosuppression on outpatient treatment with steroids and Remicade, POA Anemia of renal disease, POA Uncontrolled type 2 diabetes mellitus, POA Uncontrolled Hypertension, POA Hyperlipidemia, POA History of severe peripheral arterial disease, POA Prior history of angioplasty to right popliteal artery and distal SFA by Dr. Arzate on 01/24/2024, POA History penicillin allergy, POA Noncompliance HPI: This is a 59-year-old chronically ill male with a past medical history of ESRD on hemodialysis, severe PVD, hypertension, hyperlipidemia, type 2 diabetes mellitus, who presented to ED for evaluation of clotted PermCath and right heel wound. Patient was found to have osteomyelitis to the right foot and underwent right leg BKA by Dr. Montes, PermCath was exchanged. Patient has been having extreme pain to the right BKA and was given one time dose of Dilaudid 0.2 mg IV push. After that patient became encephalopathic and and concerns for respiratory status. On ABG patient was found to have respiratory acidosis. Patient is not tolerating the BiPAP overnight and removed it this morning patient more lethargic and acidotic. We are consulted by primary team for critical care management. Patient was transferred to the PCCU floor. He will undergo hemodialysis this afternoon. On assessment patient is lethargic awake to touch. when awakes he is oriented x3. Patient has been afebrile heart rate of 104 respiratory rate of 20 blood pressure 132/52 saturating 96% with 2 L via nasal cannula. Right lower knee drain 40 mL. Patient reports no urine output anymore since on hemodialysis. WBCs 13.1 H&H 9.4/30.1 platelet count is 190 K. neutrophils normalized and 67. Sodium 137 chloride 99 BUN 61 creatinine of 8.7 GFR of six consistent with ESRD. On chest x-ray increased pulmonary vascular congestion. As per patient's he was awake alert and oriented x3 started becoming more lethargic after pain medication was administered. We will try AVAPS with tidal volume of 500 respiratory rate of 22 FiO2 of 50% and PEEP of 5. We will follow along with you for critical care management. PAST MEDICAL HX: see above PAST SURGICAL HX: noncontributory SOCIAL HISTORY: No tobacco, ETOH, or illicit drug use Coded Allergies: Penicillins (Unverified Allergy, Unknown, 01/14/24) Sulfa (Sulfonamide Antibiotics) (Unverified Allergy, Unknown, 01/14/24) REVIEW OF SYSTEMS: unable to perform due to encephalopathy PHYSICAL EXAM: GENERAL: Lethargic GCS of 13 HEENT: Sclera non icteric, moist mucosa NECK: Short no JVD, trachea midline LUNGS: Coarse crackles sounds bilaterally. No wheezes HEART: Regular rate and rhythm. Normal S1 and S2, without murmurs ABD: Abdomen soft, nontender. Bowel sounds present EXT: No clubbing cyanosis or edema dressing to right BKA clean dry and intact NEURO: GCS of 13 no focal weakness, when he is awake oriented x3. Vital Signs (last 8hr) Date Time Temp Pulse Resp B/P (MAP) Pulse Ox O2 Delivery O2 Flow Rate FiO2 06/02/24 15:00 107 24 50 06/02/24 12:35 109 24 40 06/02/24 11:26 98.6 110 19 166/89 96 Nasal Cannula 2.0 06/02/24 08:12 98.4 104 20 132/52 96 Nasal Cannula 2.0 LABS: Hematology Labs: Test 06/02/24 04:27 Range/Units White Blood Count 13.1 H 4.8-10.8 K/uL Red Blood Count 3.10 L 4.50-6.20 MIL/uL Hemoglobin 9.4 L 14.0-18.0 g/dL Hematocrit 30.1 L 42-54 % Mean Corpuscular Volume 97.1 79-99 fL Mean Corpuscular Hemoglobin 30.3 27.0-33.0 pg Mean Corpuscular Hemoglobin Concent 31.2 L 32.0-36.0 g/dL Red Cell Distribution Width 16.2 H 11.0-15.5 % Platelet Count 190 130-400 K/uL Mean Platelet Volume 11.2 H 7.5-10.5 fL Immature Granulocyte % (Auto) 1.0 0-1 % Neutrophils (%) (Auto) 67.0 40.0-77.0 % Lymphocytes (%) (Auto) 21.8 21.0-51.0 % Monocytes (%) (Auto) 9.7 3.0-13.0 % Eosinophils (%) (Auto) 0.2 0.0-8.0 % Basophils (%) (Auto) 0.3 0.0-5.0 % Neutrophils # (Auto) 8.8 H 1.8-7.7 K/uL Lymphocytes # (Auto) 2.9 1.0-4.8 K/uL Monocytes # (Auto) 1.3 H 0.1-1.0 K/uL Eosinophils # (Auto) 0.02 0.00-0.70 K/uL Basophils # (Auto) 0.04 0.00-0.20 K/uL Absolute Immature Granulocyte (auto 0.13 0-1 K/uL Nucleated Red Blood Cells 0.0 0.0-0.19 % Chemistry Labs: Test 06/02/24 11:53 06/02/24 04:27 Range/Units Whole Blood Glucose 146 H 70-110 MG/DL Sodium Level 137 136-145 mmol/L Potassium Level 4.8 3.5-5.1 mmol/L Chloride Level 99 L 101-111 mmol/L Carbon Dioxide Level 27 21-32 mmol/L Blood Urea Nitrogen 61 H 7-18 mg/dL Creatinine 8.7 *H 0.5-1.3 mg/dL Glomerular Filtration Rate Calc 6 >90 mL/min Random Glucose 113 H 70-105 mg/dL Total Calcium 6.8 L 8.5-10.1 mg/dL DIAGNOSTICS / RADIOLOGY RESULTS: [ ] [address] [address] IMAGING REPORT Signed PATIENT: FREDRICK LION MR#: [id number] : 1965 SEX: M AGE: 59 LOCATION: [facility] ORDER 5 STATUS: ADM IN REPORT#: [id number] SERVICE REASON: sob ORDERING PHYSICIAN: SIRIA SCHWAB APRN PROCEDURE: CXR1VW - CHEST 1VW CHEST 1VW HISTORY: Shortness of breath COMPARISON: 05/22/2024 FINDINGS: A frontal projection of the chest was obtained. No acute pulmonary infiltrates is seen. The heart is borderline enlarged. Left venous catheter is seen with distal tip in plane of the superior vena cava. Degenerative changes are seen. IMPRESSION: 1. No acute pulmonary infiltrate is seen. DICTATED BY: JOSE SAMUEL MD DATE: 06/02/241102 ELECTRONICALLY SIGNED BY: JOSE SAMUEL MD DATE: 06/02/241106 PLAN transfer to PCCU AVAPS 500/22/50%/5 HD per nephrology today chest xr in am abg in am avoid opiates stick to nephrology recs. NEURO: Minimize central acting medications as possible. Fall Precautions. Well lighted room through the day and minimize interruptions through the night to prevent acute delirium. PULMONARY: Supplemental 02 as needed Titrate Fio2 to keep Spo2 > or = 90% DuoNebs and CPT as needed IS hourly while awake for pulmonary hygiene Out of bed to chair as tolerated CARDIOVASCULAR: Follow hemodynamics. Titrate vasopressor to keep MAP >65 or systolic blood pressure >95mmHg DIPS: none LINES: piv rt chest permcath GI & NUTRITION: Continue nutritional support Aspirations precautions Prokinetic agents and laxatives as needed KIDNEYS & ELECTROLYTES: Strict monitoring of intake and output Daily weights Avoid nephrotoxic agents Monitor electrolytes and replace as needed Goal urine output of 30mL/hr or 0.5mL/kg/hr Urine output: [ ] Fluid Balance: [ ] ENDOCRINE: Maintain blood glucose between 100-180 at all times. Insulin sliding scale for blood glucose management INFECTIOUS DISEASE: Trend temperature. Luque-culture if febrile. Micro: [ ] Rt Heel- prevotella melaninogenicia enterococcus Faecalis staphylococcus aureus MRSA Pseudomonas aeruginosa Antibiotics: [ ] Vancomycin meropenem Doxy HEMATOLOGY & COAGULATION: Monitor H&H. Keep Hgb > 7 Transfuse 1 unit of PRBC for Hgb < 7 Transfuse 1 pack of platelets of platelets < 20, 000 Watch for any signs and symptoms of bleeding SKIN: Pressure ulcer prevention per facility protocol Rehab: PT/OT Prophylaxis: GI: [protonix DVT: [ heparin sq Code Status: Full Resuscitation Disposition: pccu Other: Total patient care time exceeds 35 minutes excluding all procedures. Case was discussed and seen with my supervising physician. The above plan was formulated and agreed upon. GENA COLON Jun 02, 2024 15:35
[2024-06-02] MEDS: HEParin 5,000 UNIT VIAL IRRIG SCH (18:29)
[2024-06-02 19:48] LABS: ABG BASE EXCESS 0.8 mmol/L (-2.0-3.0); ABG PCO2 44 mmHg (35-48); ABG PH 7.392 (7.350-7.450); PO2, ARTERIAL BG 160.6 mmHg (83.0-108.0); VENT MODE, BG AVAPS 10-25 (ROOM AIR)
--- NOTE | 2024-06-02 20:55 | NUR ---
at this time patient refused nifedipine medication. states he does not take this medication during dialysis days. encouarge patient to take medication but patient still refused. pt at bedside. states patient does not take this medication when he gets dialysis.
--- NOTE | 2024-06-02 22:54 | NUR ---
@1920pm during shift change patient noted repeatedly trying to take off bipap(avaps). Patient a bit drowsy but follow commands. [id number]. denies any chest pain. at bedside. encouraged patient to leave his bipap, patient agreed and rt placed patient back on bipap. However, repeatedly asks to be taken off mask or will self remove mask. Patient educated on importance to leave mask on. Requires constant redirection to wear mask.
--- NOTE | 2024-06-02 23:06 | NUR ---
currently patient has mask on and is saturating 100%.
--- NOTE | 2024-06-02 23:07 | NUR ---
@2030pm reported abg results to moiz fuller. stated no need for another ABG but does want patient on avaps overnight. Patient notified. RT made aware. Did notify Quality Assurance Representative that patient frequently attempts to remove mask. Addendum: 06/03/24 at 0528 by MANUEL LION RN RN AT THIS TIME IT WAS ATTEMPTED BY RT TO PLACE PATIENT ON A NASAL AT 3 LITERS PER MINUTE BUT PATIENT WOULD DESAT INTO THE low 80s spo2%. Patient would easily fall asleep and unable to carry a normal conversation. Notified practitioner. Orders to keep patient on bipap.
[2024-06-02] MEDS: HEParin 5,000 UNIT VIAL SQ SCH (23:12)
[2024-06-03] VITALS (9 sets, daily range): BP systolic 113–163; BP diastolic 68–81; PULSE 84–110; RESP 18–23; TEMP 97.3–99.4; O2SAT 91–100
--- NOTE | 2024-06-03 07:55 | NUR ---
PATIENT WITH SPOUSE AT BEDSIDE STATING THAT WE ARE NOT LETTING HIM GO HOME AND HE KNOWS HIS RIGHTS, THAT WE ONLY KEEP HIM IN THE HOSPITAL TO CHARGE HIS INSURANCE. PATIENT EDUCATED THAT HE IS BEING WEANED OF THE OXYGEN, HE IS DOING MUCH BETTER TODAY, PHYSICAL THERAPY PENDING TO WORK WITH THE PATIENT, PATIENT CONTINUING WITH IV ANTIBIOTICS. EDUCATED THAT IS NOT RECOMMENDED FOR HIM TO LEAVE AGAINST MEDICAL ADVISE, PRIMARY RN ACKNOWLEDGED HIS CONCERNS AND NOTIFIED PRIMARY MD. PATIENT STATED THAT WE KEEPING HIM IN THE HOSPITAL, HOWEVER PATIENT NEVER STATED THAT HE WANTS TO LEAVE AMA.
--- NOTE | 2024-06-03 09:00 | NUR ---
PATIENT REFUSING NASAL CANULA. PATIENT REMOVED NC HIS SELF STATING HE DOES NOT NEED IT.
[2024-06-03] MEDS: PANTOPrazole 40 MG/VIAL IVP SCH (09:32)
[2024-06-03] MEDS: LACTULOSE 20 GM/30 ML UDCUP PO ONE (09:33)
--- NOTE | 2024-06-03 09:35 | NUR ---
PATIENT REFUSED ASA, PLAVIX, AND NEPHROVITE. NOTIFIED.
--- NOTE | 2024-06-03 10:22 | PN ---
[facility] PROGRESS NOTE Date of Service: Jun 03, 2024 Time of Service: 10:20 SUBJECTIVE: 59-year-old male with underlying history of hypertension, hyperlipidemia, peripheral arterial disease, type 2 diabetes mellitus, ESRD on chronic home hemodialysis of Wednesday, Wednesday, Wednesday, history of chronic diabetic foot ulcer of the right heel being followed by Podiatry as outpatient, psoriasis on chronic outpatient steroids and Remicade infusion who presented to the ER after his PermCath for hemodialysis was dislodged. Dislodgement happened on Wednesday and patient decided to come to the ER today for further evaluation. Patient states that similar episode has happened about six months ago and patient had PermCath placed by IR. history of chronic diabetic foot/ heel ulcer being followed by Dr. Jackson as outpatient. He was seen by Dr. Jackson recently and has been taking oral outpatient antibiotics with doxycycline. He is supposed to see Dr. Mata with Infectious Disease on 05/26/2024 given persistent nonresolving infection. S/P PermCath placement 05/23/2024 by IR. S/p right BKA with Dr. Montes 05/30/2024 Today on bedside evaluation patient was found awake alert and oriented x 3. The power chart reviewed, vital signs, laboratory tests, imaging test and medicati ons have been reviewed. Patient was hard to arouse overnight, nephrology recommends lower dose of analgesics. Continue hemodialysis as scheduled. Continue IV Merrem and vancomycin. Continue gabapentin 300 mg p.o. daily secondary to right BKA pain at Dr. Montes's direction. Low-grade fever reported of 100 at midnight, latest vitals are stable, currently satting 96% on2 L nasal cannula. White count remained slightly elevated at 13.1, there is no bandemia. H&H is stable 9.4/30.1. BMP is stable. Continue IS hourly as tolerated. Pending chest x-ray. Continue working with physical therapy. Titrate off O2. we will follow up with Dr. Montes's discharge recommendations. 06/03 patient is seen and examined at bedside, no acute events overnight, case discussed with the RN. During my visit patient comfortably in bed, alert oriented x3, hemodynamically stable, saturating normal on room air. Patient was upgraded to the PCU yesterday as the patient noted to be drowsy, ABG the patient with hypercapnia, he was placed on AVAPS. Patient evaluated by electric stop installer, recommendations were followed. Patient underwent hemodialysis at his scheduled day, tolerating well, 2.5 L removed. Today he is comfortable, denies chest pain, shortness shortness for breath, no nausea, no vomiting. He is answering questions appropriately. is at bedside, updated. We will request PT to evaluate the patient today. REVIEW OF SYSTEMS CONSTITUTIONAL: reports that permacath was dislodged today NEUROLOGICAL: Denies headache, amaurosis fugax, motor weakness, sensory deficit, vertigo/spinning sensation, gait abnormalities, or tremors. ENT: No hearing loss, otalgia, otorrhea, rhinitis, rhinorrhea, hoarseness, or sore throat. CARDIOVASCULAR: Denies any exertional angina, dyspnea on exertion, orthopnea, paroxysmal nocturnal dyspnea, palpitations, life-threatening arrhythmias, claudication. PULMONARY: Denies any shortness of breath, cough, phlegm/sputum, hemoptysis, pleuritic chest pain. SLEEP: Denies morning headaches, daytime somnolence or napping. Denies difficulty falling asleep, staying asleep, waking from sleep. Denies knowledge of snoring. GASTROINTESTINAL: Denies any type of dysphagia to either liquids or solids. Denies nausea, vomiting, pyrosis, early satiety, abdominal pain, diarrhea, constipation, or changes in stool consistency or caliber. Denies coffee-ground emesis, hematemesis, hematochezia, or melanotic stools. GENITOURINARY: Denies frequency, urgency, nocturia, hematuria or incontinence (Storage/Irritative symptoms.) Low urinary stream, straining to void, urinary intermittency or hesitancy, splitting of the voiding stream, terminal dribbling. ENDOCRINOLOGIC: Denies polyuria, polydipsia, polyphagia or heat/cold intolerances. HEMATOLOGIC: Denies thrombophilia/previous clots, or coagulopathy/bleeding disorders. ONCOLOGIC: Denies personal history of malignancy. DERMATOLOGIC: ulcer involving the right foot heel PSYCHIATRIC: Denies any suicidal or homicidal ideation. Denies hallucinations. PHYSICAL EXAM GENERAL APPEARANCE: The patient is awake, alert, and oriented, in no acute cardiopulmonary distress. NEUROLOGICAL: Cranial nerves II-XII grossly intact. Motor is 5/5 in bilateral upper and lower extremities proximal to distal. No sensory deficits. HEENT: Face is symmetric. Pupils are equal and reactive. Extraocular movements are intact. NECK: Supple. No JVD. No thyromegaly. No submental, submandibular, pre- /postauricular, occipital or supraclavicular lymphadenopathy. CHEST: Normal chest expansion. No Telemetry. LUNGS: Absence of any rales, rhonchi or any wheezing. CARDIOVASCULAR: Regular. S1 and S2 normal. No appreciable rubs, murmurs or gallops. ABDOMEN: Soft, nontender, and nondistended. There is no rebound, voluntary guarding, or rigidity. : Deferred. No Hutson. EXTREMITIES: Patient has heel has a large area of eschar with possible necrotic region SKIN: No skin breakdown. Vital Signs (last 8hr) Date Time Temp Pulse Resp B/P (MAP) Pulse Ox O2 Delivery O2 Flow Rate FiO2 06/03/24 07:37 94 18 N/Cannula Low lpm 2.0 28 06/03/24 07:13 99.3 92 18 163/77 94 Nasal Cannula 3.0 06/03/24 03:00 97.9 84 18 138/77 100 BIPAP LABS: Laboratory: Test 06/02/24 20:07 06/02/24 19:46 06/02/24 14:40 06/02/24 12:23 Range/Units Whole Blood Glucose 128 H 70-110 MG/DL Blood Gas Specimen Type Arterial Arterial Blood pH 7.392 7.350-7.450 Arterial Blood Partial Pressure CO2 44 35-48 mmHg Arterial Blood Partial Pressure O2 160.6 H 83.0-108.0 mmHg Arterial Blood HCO3 26.0 21.0-28.0 mmol/L Arterial Blood Oxygen Saturation 99.0 H 94.0-98.0 % Arterial Blood Base Excess 0.8 -2.0-3.0 mmol/L Blood Gas Temperature 37.0 35.5-37.0 CELSIUS Blood Gas Respiration Rate 22.0 min. Blood Gas Vent Mode AVAPS 10-25 ROOM AIR FiO2 50.0 % Blood Gas Tidal Volume 500 ml Blood Gas PEEP 5 cm H2O Blood Gas Specimen Comment RN, LB SARS-CoV-2 Antigen (Rapid) PRESUMPTIVE NEGATIVE NEGATIVE Blood Gas Flow-by 2.00 0.00-15.00 L/min Test 06/02/24 04:27 Range/Units White Blood Count 13.1 H 4.8-10.8 K/uL Red Blood Count 3.10 L 4.50-6.20 MIL/uL Hemoglobin 9.4 L 14.0-18.0 g/dL Hematocrit 30.1 L 42-54 % Mean Corpuscular Volume 97.1 79-99 fL Mean Corpuscular Hemoglobin 30.3 27.0-33.0 pg Mean Corpuscular Hemoglobin Concent 31.2 L 32.0-36.0 g/dL Red Cell Distribution Width 16.2 H 11.0-15.5 % Platelet Count 190 130-400 K/uL Mean Platelet Volume 11.2 H 7.5-10.5 fL Immature Granulocyte % (Auto) 1.0 0-1 % Neutrophils (%) (Auto) 67.0 40.0-77.0 % Lymphocytes (%) (Auto) 21.8 21.0-51.0 % Monocytes (%) (Auto) 9.7 3.0-13.0 % Eosinophils (%) (Auto) 0.2 0.0-8.0 % Basophils (%) (Auto) 0.3 0.0-5.0 % Neutrophils # (Auto) 8.8 H 1.8-7.7 K/uL Lymphocytes # (Auto) 2.9 1.0-4.8 K/uL Monocytes # (Auto) 1.3 H 0.1-1.0 K/uL Eosinophils # (Auto) 0.02 0.00-0.70 K/uL Basophils # (Auto) 0.04 0.00-0.20 K/uL Absolute Immature Granulocyte (auto 0.13 0-1 K/uL Nucleated Red Blood Cells 0.0 0.0-0.19 % Sodium Level 137 136-145 mmol/L Potassium Level 4.8 3.5-5.1 mmol/L Chloride Level 99 L 101-111 mmol/L Carbon Dioxide Level 27 21-32 mmol/L Blood Urea Nitrogen 61 H 7-18 mg/dL Creatinine 8.7 *H 0.5-1.3 mg/dL Glomerular Filtration Rate Calc 6 >90 mL/min Random Glucose 113 H 70-105 mg/dL Total Calcium 6.8 L 8.5-10.1 mg/dL Current Medications Medications (Trade) Dose Ordered Sig/Idania Route PRN Reason Start Time Stop Time Status Last Admin Dose Admin Acetaminophen (TYLenol 325MG TAB) 650 mg Q6H PRN PO MILD PAIN (1-3) 05/22/24 10:30 06/21/24 10:29 Acetaminophen/ Hydrocodone Bitart (NORco 5/325MG) 1 tab Q4H PRN PO MODERATE PAIN (4-6) 05/31/24 02:30 06/02/24 13:47 DC Acetaminophen/ Hydrocodone Bitart (NORco 5/325MG) 1 tab Q8H PRN PO MODERATE PAIN (4-6) 05/22/24 23:00 05/27/24 22:59 DC 05/22/24 22:51 1 TAB Acetaminophen/ Hydrocodone Bitart (NORco 5/325MG) 2 tab Q4H PRN PO SEVERE PAIN (7-10) 05/31/24 02:30 06/01/24 10:57 DC 05/31/24 15:01 2 TAB Aspirin (Aspirin 81mg Chew Tab) 81 mg DAILY PO 05/23/24 09:00 05/23/24 00:22 DC Aspirin (Aspirin 81mg Chew Tab) 81 mg DAILY PO 05/23/24 17:00 06/22/24 16:59 06/03/24 09:32 81 MG Atorvastatin Calcium (LIPItor 40MG) 40 mg HS PO 05/23/24 21:00 06/22/24 20:59 06/02/24 20:52 40 MG Benzonatate (Tessalon 100mg Caps) 100 mg Q8H PRN PO cough 05/28/24 14:00 06/27/24 13:59 05/29/24 16:37 100 MG Cefepime HCl (MAXipime 1 GM vial) 1 gm Q24H IVPB 05/22/24 11:00 05/26/24 12:08 DC 05/25/24 10:19 1 GM Cetirizine HCl (ZYRtec 5 MG TABLET) 5 mg DAILY PO 05/29/24 09:00 06/02/24 13:47 DC 06/02/24 11:27 5 MG Clopidogrel Bisulfate (plaVIX 75MG) 75 mg DAILY PO 05/23/24 13:00 05/23/24 00:22 DC Clopidogrel Bisulfate (plaVIX 75MG) 75 mg DAILY PO 05/23/24 17:00 05/23/24 14:21 DC Clopidogrel Bisulfate (plaVIX 75MG) 75 mg DAILY PO 05/24/24 09:00 06/23/24 08:59 06/03/24 09:33 75 MG Doxycycline Hyclate 250 ml @ 125 mls/hr Q12H IV 06/02/24 15:00 06/12/24 14:59 06/03/24 03:05 125 MLS/HR Doxycycline Hyclate (Doxycycline Hyclate) 100 mg BID PO 06/02/24 14:00 06/02/24 14:43 DC Gabapentin (NEURontin 300 MG CAP) 300 mg DAILY PO 06/01/24 09:00 06/02/24 11:59 DC 06/02/24 10:00 300 MG Heparin Sodium (Porcine) (HEParin 5,000 UNIT VIAL) 5,000 unit Q12H SQ 06/02/24 21:30 07/02/24 21:29 06/03/24 09:48 5,000 UNIT Heparin Sodium (Porcine) (HEParin 5,000 UNIT VIAL) 10,000 unit AD IRRIG 05/24/24 13:00 06/23/24 12:59 06/02/24 18:29 10,000 UNIT Hydralazine HCl (APRESOLine 20MG INJ) 5 mg Q6H PRN IV ADMINISTER FOR SBP > 160 05/22/24 12:30 06/21/24 12:29 05/29/24 04:52 5 MG Hydromorphone HCl (DiLAUDid 0.5MG INJ) 0.2 mg Q3H3 PRN IVP SEVERE PAIN (7-10) 06/01/24 11:00 06/01/24 15:43 DC 06/01/24 12:58 0.2 MG Hydromorphone HCl (DiLAUDid 0.5MG INJ) 0.2 mg Q6H PRN IVP SEVERE PAIN (7-10) 06/01/24 16:00 06/01/24 18:03 DC Insulin Glargine (LANtus 100 UNITS/ML 10 ML VIAL) 15 units HS SQ 05/28/24 21:00 06/27/24 20:59 05/30/24 20:54 15 UNITS Insulin Human Regular (humuLIN R 100 UNIT/ML 3ML) INSULIN SLIDING SCAL... ACHS SQ 05/22/24 11:30 05/27/24 12:19 DC 05/27/24 06:05 7 UNIT Insulin Human Regular (humuLIN R 100 UNIT/ML 3ML) INSULIN SLIDING SCAL... ACHS SQ 05/27/24 16:30 06/26/24 16:29 05/31/24 21:43 6 UNIT Meropenem (Merrem 1gm) 1 gm Q24H IV 05/26/24 14:00 05/26/24 16:30 DC Meropenem (Merrem 1gm) 1 gm Q24H IV 05/26/24 18:00 06/16/24 17:59 06/02/24 20:45 1 GM Montelukast Sodium (SinguLAIR) 10 mg HS PO 05/28/24 21:00 06/27/24 20:59 06/02/24 20:52 10 MG Morphine Sulfate (morPHINE 4MG SYG) 4 mg Q2H PRN IVP SEVERE PAIN (7-10) 05/31/24 05:30 06/01/24 10:57 DC 06/01/24 10:25 4 MG Morphine Sulfate (morPHINE 4MG SYG) 4 mg Q4H PRN IVP SEVERE PAIN (7-10) 05/31/24 02:30 05/31/24 05:03 DC 05/31/24 02:20 4 MG Nifedipine (adALAT 30MG) 60 mg Q24H PO 05/22/24 11:00 05/22/24 19:16 DC Nifedipine (adALAT 30MG) 60 mg Q24H PO 05/22/24 19:30 06/21/24 19:29 05/31/24 21:40 30 MG Ondansetron HCl (zoFRAN 4MG INJ) 4 mg Q6H PRN IVP NAUSEA/VOMITING 05/22/24 10:30 06/21/24 10:29 Pantoprazole Sodium (PROTonix 40MG INJ) 40 mg DAILY IVP 06/03/24 09:00 07/03/24 08:59 06/03/24 09:32 40 MG Pantoprazole Sodium (PROTonix 40MG TAB) 40 mg DAILY PO 05/23/24 09:00 06/02/24 21:08 DC 06/02/24 10:01 40 MG Pharmacy Profile Note (Pharmacy Communication) 1 each ONCE MISC 05/22/24 11:00 05/22/24 10:57 DC Prednisone (deltaSONE/ oraSONE 5MG) 5 mg BID PO 05/22/24 21:00 06/21/24 20:59 06/03/24 09:34 5 MG Sodium Chloride 1,000 ml @ 0 mls/hr ONCE IV 05/27/24 12:00 06/26/24 11:59 06/02/24 18:01 100 MLS/HR Vancomycin HCl (Vancomycin 750mg) 750 mg QMOWEFR[DIALYSIS] IVPB 05/31/24 16:00 06/10/24 15:59 06/02/24 19:15 750 MG Vancomycin HCl (Vancomycin 750mg) 750 mg QMOWEFR[DIALYSIS] IVPB 05/26/24 16:00 05/26/24 17:33 DC Vancomycin HCl (Vancomycin 750mg) 750 mg QMOWEFR[DIALYSIS] IVPB 05/27/24 16:00 05/29/24 16:23 DC 05/27/24 15:33 750 MG Vancomycin HCl (Vancomycin 750mg) 750 mg QTUTHSA[DIALYSIS] IVPB 05/30/24 16:00 05/30/24 15:59 DC Vancomycin HCl (Vancomycin Protocol) 1 each AD IV 05/22/24 11:00 06/05/24 10:59 Vitamin B Complex/ Vit C/Folic Acid (Nephrovite Tablet) 1 cap DAILY PO 05/23/24 09:00 06/22/24 08:59 06/03/24 09:32 1 CAP DIAGNOSTICS / RADIOLOGY: [ ] ASSESSMENT: Dislodged PermCath, POA s/p PermCath placement 05/23/2024 by IR History of ESRD on home hemodialysis therapy, POA osteomyelitis per foot x-ray 05/22/2024 Right heel culture growing Enterococcus faecalis, Streptococcus MRSA, Pseudomonas aeruginosa 05/22/2024 Chronic leukocytosis, POA Underlying immunosuppression on outpatient treatment with steroids and Remicade, POA Nonhealing diabetic foot ulcer/heel ulcer with associated deep eschar/necrotic region, being followed by Dr. Jackson as outpatient, POA Anemia of renal disease, POA Underlying history of type 2 diabetes mellitus, POA History of chronic prednisone use as outpatient, POA Uncontrolled Hypertension, POA Hyperlipidemia, POA History of peripheral arterial disease, POA Prior history of angioplasty to right popliteal artery and distal SFA by Dr. Arzate on 01/24/2024, POA History penicillin allergy, POA Noncompliance PLAN: Continue admission in progressive care unit Continue telemetry monitoring Continue renal dialysis diet S/p right BKA by Dr. Montes on 05/30/2024 Continue low dose of analgesics as per merchandise executive Dr. Montes recommends Drains be removed two days after surgery, keep incision clean and dry, continue wound management,4 x 4 and Giuseppe wrap as needed Consults: [place]: Dr Jackson, tool trouble shooter DR Crabtree , merchandise executive DR Mera , surgeon , ID refused , 2nd opinion Dr. Edmonds ; Dr Montes Continue supplemental O2 to keep O2 saturations above 92%, currently satting 96% on 2 L nasal cannula Please titrate down supplemental O2 to keep O2 sats >92%. DC if not needed. IS hourly as tolerated Antibiotics: Vancomycin, IV Merrem IV , IV vancomycin on dialysis days We will transition to p.o. antibiotics on discharge if patient goes home. Pending PT input and recommendations. Blood cultures negative Wound cultures growing Prevotella Melaninogenica, Enterococcus faecalis, Staphylococcus aureus MRSA, Pseudomonas aeruginosa Continue local wound care nonweightbearing Continue to work with physical therapy Continue dialysis3 times a week via PermCath. TTS schedule Avoid NSAIDs renal dose medication, fluid restriction daily weight Continue dual antiplatelet therapy with aspirin and Plavix, continue statin therapy Continue SSI, basal insulin Continue glucometer checks before meals and at bedtime Continue hypoglycemic protocol Monitor a.m. labs PRN Treatment - Add when necessary meds for nausea, vomiting, pain, constipation, insomnia. DVT/GI prophylaxis- Continue heparin and Protonix at current doses. Full CODE STATUS Plan of action discussed, all questions answered, agreed and understood the information provided. Total PCU time spent greater than 30 minutes. SILVER GONZALEZ MD Jun 03, 2024 10:22
--- NOTE | 2024-06-03 12:00 | NUR ---
PATIENT REFUSED NOON VS AND BLOOD SUGAR CHECK.
--- NOTE | 2024-06-03 12:27 | PN ---
PROGRESS NOTE Date of Service: Jun 03, 2024 Time of Service: 12:26 SUBJECTIVE: No new concerns reported in the last 24hours. Denies fever chills and pain. Examined at bedside. Last HD treatment yesterday. Tolerated session. REVIEW OF SYSTEMS CONSTITUTIONAL: Denies fever, chills, or fatigue. HEAD/FACE: No signs of trauma. EENT: Denies eye pain, blurred vision, double vision, or light sensitivity. RESPIRATORY: Denies shortness of breath, cough, wheezing CARDIOVASCULAR: Denies chest pain, palpitation, syncope peripheral arterial sclerosis. GASTROINTESTINAL/ABDOMINAL: Denies abdominal pain, constipation, diarrhea, nausea or vomiting GENITOURINARY: Denies dysuria or hematuria. 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 INTEGUMENTARY: Gangrenous ulcer to the posterior aspect of the right foot and heel. NEUROLOGICAL/PSYCH: Denies anxiety, depression, heat or cold intolerance. PHYSICAL EXAM EYES: Anicteric. Pupils equal and reactive. HENT: No oral thrush seen, moist Oral mucosa NECK: Supple, no JVD or thyromegaly. LUNGS: Good air entry. No rales, no rhonchi. CARDIOVASCULAR: S1, S2 regular. No murmur heard. ABDOMEN: Soft, non tender, bowel sounds present, no organomegaly CENTRAL NERVOUS SYSTEM: Awake, alert, oriented x 3. No focal deficits. SKIN: Ulcer with gangrene to the right foot stump. LYMPHATICS: No peripheral lymphadenopathy MUSCULOSKELETAL: Edema erythema and swelling of the right stump with a history of Syme's amputation. EXTREMITIES: Gangrenous ulcer to the posterior and plantar aspect of the right foot stump. BACK: No deformity, no pressure ulcer. GENITOURINARY: No dysuria or hematuria Vital Signs (last 8hr) Date Time Temp Pulse Resp B/P (MAP) Pulse Ox O2 Delivery O2 Flow Rate FiO2 06/03/24 07:37 94 18 N/Cannula Low lpm 2.0 28 06/03/24 07:13 99.3 92 18 163/77 94 Nasal Cannula 3.0 LABS: Laboratory: Test 06/02/24 20:07 06/02/24 19:46 06/02/24 14:40 06/02/24 12:23 Range/Units Whole Blood Glucose 128 H 70-110 MG/DL Blood Gas Specimen Type Arterial Arterial Blood pH 7.392 7.350-7.450 Arterial Blood Partial Pressure CO2 44 35-48 mmHg Arterial Blood Partial Pressure O2 160.6 H 83.0-108.0 mmHg Arterial Blood HCO3 26.0 21.0-28.0 mmol/L Arterial Blood Oxygen Saturation 99.0 H 94.0-98.0 % Arterial Blood Base Excess 0.8 -2.0-3.0 mmol/L Blood Gas Temperature 37.0 35.5-37.0 CELSIUS Blood Gas Respiration Rate 22.0 min. Blood Gas Vent Mode AVAPS 10-25 ROOM AIR FiO2 50.0 % Blood Gas Tidal Volume 500 ml Blood Gas PEEP 5 cm H2O Blood Gas Specimen Comment RN, LB SARS-CoV-2 Antigen (Rapid) PRESUMPTIVE NEGATIVE NEGATIVE Blood Gas Flow-by 2.00 0.00-15.00 L/min Test 06/02/24 04:27 Range/Units White Blood Count 13.1 H 4.8-10.8 K/uL Red Blood Count 3.10 L 4.50-6.20 MIL/uL Hemoglobin 9.4 L 14.0-18.0 g/dL Hematocrit 30.1 L 42-54 % Mean Corpuscular Volume 97.1 79-99 fL Mean Corpuscular Hemoglobin 30.3 27.0-33.0 pg Mean Corpuscular Hemoglobin Concent 31.2 L 32.0-36.0 g/dL Red Cell Distribution Width 16.2 H 11.0-15.5 % Platelet Count 190 130-400 K/uL Mean Platelet Volume 11.2 H 7.5-10.5 fL Immature Granulocyte % (Auto) 1.0 0-1 % Neutrophils (%) (Auto) 67.0 40.0-77.0 % Lymphocytes (%) (Auto) 21.8 21.0-51.0 % Monocytes (%) (Auto) 9.7 3.0-13.0 % Eosinophils (%) (Auto) 0.2 0.0-8.0 % Basophils (%) (Auto) 0.3 0.0-5.0 % Neutrophils # (Auto) 8.8 H 1.8-7.7 K/uL Lymphocytes # (Auto) 2.9 1.0-4.8 K/uL Monocytes # (Auto) 1.3 H 0.1-1.0 K/uL Eosinophils # (Auto) 0.02 0.00-0.70 K/uL Basophils # (Auto) 0.04 0.00-0.20 K/uL Absolute Immature Granulocyte (auto 0.13 0-1 K/uL Nucleated Red Blood Cells 0.0 0.0-0.19 % Sodium Level 137 136-145 mmol/L Potassium Level 4.8 3.5-5.1 mmol/L Chloride Level 99 L 101-111 mmol/L Carbon Dioxide Level 27 21-32 mmol/L Blood Urea Nitrogen 61 H 7-18 mg/dL Creatinine 8.7 *H 0.5-1.3 mg/dL Glomerular Filtration Rate Calc 6 >90 mL/min Random Glucose 113 H 70-105 mg/dL Total Calcium 6.8 L 8.5-10.1 mg/dL DIAGNOSTICS / RADIOLOGY: STAFF PHYSICAL THERAPIST PROCEDURE REQUEST REASON: DISLODGED PERMACATH. COMPARISON: None TECHNIQUE: Fluoroscopic guidance with placement of left internal jugular-right atrial tunneled Duramax dialysis catheter. FINDINGS: The right internal jugular vein is occluded at the junction with the superior vena cava and right subclavian vein. Left internal jugular vein is patent. PROCEDURE: Informed consent obtained the patient following explanation of risk, benefits, complications. Timeout performed by nursing staff. Continuous monitoring was performed of the patient during the procedure I nursing personnel including cardiovascular status, oxygenation, respiration. Patient received intravenous titrated doses of Versed and fentanyl during the procedure administered by nursing personnel. Right neck and left neck were prepped and draped in sterile fashion. Ultrasound of the right neck demonstrates large amount thrombus within the proximal internal jugular vein. Following local anesthesia with 1% lidocaine, access gained into the right internal jugular vein under direct ultrasound guidance. Guidewire could not be passed beyond the area of obstruction at the junction with the SVC. This site was abandoned and attention was made to the left internal jugular venous access site. Following local anesthesia with 1% lidocaine subcutaneous, needle access into the left internal jugular vein obtained with ultrasound guidance. Fine guidewire placement, microcatheter access was passed over the guidewire. J-wire was then passed through the sheath in past the right atrium into the inferior vena cava. Fashion dilatation performed, tunneled Duramax catheter 32 cm in length, was passed over guidewire and the tip of the catheter positioned within the right atrium. Both ports were flushed, aspirated, flushed, heparinized, capped, clamped. Catheter secured to the skin with retention suture and sterile dressing. Patient tolerated procedure well without evidence of comp occasions. Total fluoroscopic time: 3.7 minutes. Estimated blood loss: Less than 8 ml. IMPRESSION: Placement of 32 cm tunneled Duramax dialysis catheter with the tip positioned within the right atrium. Access from the left internal jugular vein. Catheter is ready for immediate use. ASSESSMENT: ESRD DM2 with nephropathy HTN with renal manifestation Hyperkalemia Anemia of CKD Osteomyelitis PLAN: No acute HD today No change to POC Monitor Electrolytes Renal Diet CHEPE as per protocol with HD treatments Continue home medications LALITHA KOCH Jun 03, 2024 12:27
[2024-06-03] MEDS ORDERED: COMPOUND IV REFRIGERATED 1 EACH IVSOLN MISC PRN (13:00)
--- NOTE | 2024-06-03 16:16 | NUR ---
PATIENT REFUSED 1600 VS AND BLOOD SUGAR CHECK.
--- NOTE | 2024-06-03 17:46 | NUR ---
DURING THE DAY TODAY WAS ABLE TO KEEP NASAL CANULA ON FOR ABOUT 2 HRS. CALLED PRIMARY RN REGARDING PATIENT SHAKING HIS ARMS. PATIENT ALERT AND ORIENTED X4, STATED THAT HE SHAKES HIS ARMS SOMETIMES. PATIENT NOTICED SHAKING ARMS A BIT BUT AT THIS TIME IS MORE OBVIOUS. BRENNA RESIDENT ATHLETIC TRAINER AT BEDSIDE. INFORMED RESIDENT ATHLETIC TRAINER THAT PATIENT REFUSED TO CHECK HIS VS, WE CAN NOT CHECK HIS O2 SAT AND HE IS REFUSING NASAL CANULA. PATIENT REFUSES ANY INTERVENTIONS AT THIS TIME, RESIDENT ATHLETIC TRAINER RECOMMENDED A CT HEAD, HOWEVER PATIENT REFUSED, HE STATED HE IS FINE AND " DO NOT PUT WORDS INTO MY MOUTH" "I CAN MOVE MY ARMS FINE" (DEMONSTRATING AND MOVING HIS ARMS UP AND DOWN SIMULTANEOUSLY). RESIDENT ATHLETIC TRAINER EXPLAINED TO THAT WE CAN PROVIDE THE CARE PATIENT ALLOWS US TO PROVIDE. WILL CONTINUE TO MONITOR PATIENT.
--- NOTE | 2024-06-03 20:35 | PN ---
[facility] PROGRESS NOTE Date Patient Seen: Jun 03, 2024 Time of Visit: 20:35 Supervising Physician: Dr. Christa Pavon Primary Care Physician: Dr Chuck Olmedo MD Outpatient Specialists: Inpatient Consults: Dr Jackson, Dr Oden, Dr Mera, Dr Montes, Dr Edmonds PROBLEM LIST: Acute hypoxic and Hypercapnic respiratory failure not POA Opioid induced respiratory depression Metabolic encephalopathy, not POA Dislodged PermCath, POA s/p left side chest wall Permacth placement 05/23/24 History of ESRD on home hemodialysis therapy, POA osteomyelitis per foot x-ray 05/22/2024 S/P Rt BKA 05/22/24 Right heel culture growing Enterococcus faecalis, Streptococcus MRSA, Pseudomonas aeruginosa 05/22/2024 Chronic leukocytosis, POA Underlying immunosuppression on outpatient treatment with steroids and Remicade, POA Anemia of renal disease, POA Uncontrolled type 2 diabetes mellitus, POA Uncontrolled Hypertension, POA Hyperlipidemia, POA History of severe peripheral arterial disease, POA Prior history of angioplasty to right popliteal artery and distal SFA by Dr. Maira pierce on 01/24/2024, POA History penicillin allergy, POA Noncompliance INTERVAL HISTORY: 06/03/2024: At the time of my evaluation, the patient was in his assigned room and sitting up to the bedside chair. He denies any respiratory difficulty or chest pain. Based on documented vital signs, he remains hemodynamically stable. No other complaint. REVIEW OF SYSTEMS: unable to perform due to encephalopathy PHYSICAL EXAM: GENERAL: Lethargic GCS of 13 HEENT: Sclera non icteric, moist mucosa NECK: Short no JVD, trachea midline LUNGS: Coarse crackles sounds bilaterally. No wheezes HEART: Regular rate and rhythm. Normal S1 and S2, without murmurs ABD: Abdomen soft, nontender. Bowel sounds present EXT: No clubbing cyanosis or edema dressing to right BKA clean dry and intact NEURO: GCS of 13 no focal weakness, when he is awake oriented x3. Vital Signs (last 8hr) Date Time Temp Pulse Resp B/P (MAP) Pulse Ox O2 Delivery O2 Flow Rate FiO2 06/03/24 19:07 97.3 99 20 163/81 94 Nasal Cannula 3.0 LABS: Hematology Labs: Test 06/02/24 04:27 Range/Units White Blood Count 13.1 H 4.8-10.8 K/uL Red Blood Count 3.10 L 4.50-6.20 MIL/uL Hemoglobin 9.4 L 14.0-18.0 g/dL Hematocrit 30.1 L 42-54 % Mean Corpuscular Volume 97.1 79-99 fL Mean Corpuscular Hemoglobin 30.3 27.0-33.0 pg Mean Corpuscular Hemoglobin Concent 31.2 L 32.0-36.0 g/dL Red Cell Distribution Width 16.2 H 11.0-15.5 % Platelet Count 190 130-400 K/uL Mean Platelet Volume 11.2 H 7.5-10.5 fL Immature Granulocyte % (Auto) 1.0 0-1 % Neutrophils (%) (Auto) 67.0 40.0-77.0 % Lymphocytes (%) (Auto) 21.8 21.0-51.0 % Monocytes (%) (Auto) 9.7 3.0-13.0 % Eosinophils (%) (Auto) 0.2 0.0-8.0 % Basophils (%) (Auto) 0.3 0.0-5.0 % Neutrophils # (Auto) 8.8 H 1.8-7.7 K/uL Lymphocytes # (Auto) 2.9 1.0-4.8 K/uL Monocytes # (Auto) 1.3 H 0.1-1.0 K/uL Eosinophils # (Auto) 0.02 0.00-0.70 K/uL Basophils # (Auto) 0.04 0.00-0.20 K/uL Absolute Immature Granulocyte (auto 0.13 0-1 K/uL Nucleated Red Blood Cells 0.0 0.0-0.19 % Chemistry Labs: Test 06/03/24 17:09 06/02/24 04:27 Range/Units Whole Blood Glucose 152 H 70-110 MG/DL Sodium Level 137 136-145 mmol/L Potassium Level 4.8 3.5-5.1 mmol/L Chloride Level 99 L 101-111 mmol/L Carbon Dioxide Level 27 21-32 mmol/L Blood Urea Nitrogen 61 H 7-18 mg/dL Creatinine 8.7 *H 0.5-1.3 mg/dL Glomerular Filtration Rate Calc 6 >90 mL/min Random Glucose 113 H 70-105 mg/dL Total Calcium 6.8 L 8.5-10.1 mg/dL DIAGNOSTICS / RADIOLOGY RESULTS: [ ] PLAN 06/03/2024: For now, we are going to continue current management for the patient. We will supplement oxygenation as necessary. We will monitor for any arrhythmias or changes of vital signs. We will continue renal replacement therapy per the central office installer. We will continue to provide general supportive care, GI and DVT prophylaxis. Further orders per attending MD and hospital course. NEURO: Minimize central acting medications as possible. Maintain fall precautions, adequate lighting during the day PULMONARY: Supplemental 02 as needed. Maintain aspiration precautions at all times CARDIOVASCULAR: Follow hemodynamics. Vital signs per facility protocol GI & NUTRITION: Continue with nutritional support. Continue stool softeners and laxatives as needed. KIDNEYS & ELECTROLYTES: Strict monitoring of intake, output and overall fluid balance. Avoid nephrotoxic medications to the extent possible. Medications to be dosed according to renal function. Monitor electrolytes and replace as needed ENDOCRINE: Maintain blood glucose between 100-180 at all times. Hypoglycemia protocol in place INFECTIOUS DISEASE: Trend temperature, WBC and procalcitonin level Follow cultures, deescalate antibiotics as soon as possible. Panculture if new onset fever ONCOLOGY/HEMATOLOGY/COAGULATION: Monitor for s/s of bleeding Monitor hemoglobin, coagulation studies as needed SKIN: Pressure ulcer prevention per facility protocol Specialty mattress ORTHO/REHAB: Continue PT/OT Prophylaxis: Continue GI and DVT prophylaxis Code Status: Full Resuscitation Disposition: TBD Other: Total patient care time exceeds 35 minutes excluding all procedures. RAE CEJA NP Jun 03, 2024 20:35
--- NOTE | 2024-06-03 21:00 | NUR ---
REFUSED HEPARIN INJECTION AND BIPAP EXPLAIN TO PATIENT AND AT BEDSIDE THE IMPORTANCE OF ADHERING TO THE TREATMENTS PRESCRIBED BY THE DOCTOR, BUT AT NO AVAIL PATIENT WAS ADAMANT, THAT HE DOESN'T WANT NEITHER. WILL CONT TO MONITOR
--- NOTE | 2024-06-03 21:27 | NUR ---
Patient educated on use of bipap he refused, patient was recommended to use incentive spirometry patient refused. Addendum: 06/03/24 at 2130 by CASI COLEMAN RT Amended: Links added.
[2024-06-04] VITALS (13 sets, daily range): BP systolic 111–140; BP diastolic 40–73; PULSE 83–98; RESP 18–22; TEMP 97.6–98.9; O2SAT 91–94
--- NOTE | 2024-06-04 04:00 | NUR ---
REFUSED LAB DRAW AND VITAL SIGNS CHECK WAS UNABLE TO CONVINCE PATIENT TO LET ACADEMIC HOSPITALIST DRAW MORNING LABS, PT CONTINUES TO BE NOT COMPLIANT WITH DOCTOR TREATMENT. VITAL SIGNS COULDN'T BE TAKING EITHER. PER TELEMETRY PATIENT IS SINUS RHYTHM 87 , NO DISTRESS NOTED, O2SAT 96% ON ROOM AIR. WILL CONT TO MONITOR
[2024-06-04 08:14] LABS: MEAN CORPUSCULAR HEMOGLOBIN 29.7 pg (27.0-33.0); MEAN CORPUSCULAR HGB CONC 32.4 g/dL (32.0-36.0); MEAN CORPUSCULAR VOLUME 91.8 fL (79-99); RED BLOOD CELL COUNT(AUTO) 3.16 MIL/uL (4.50-6.20)
[2024-06-04 08:35] LABS: ALBUMIN 2.3 g/dL (3.5-5.0); ASPARTATE AMINOTRANSFERASE 17 U/L (10-37); BILIRUBIN,TOTAL 0.6 mg/dL (0.2-1.0); CARBON DIOXIDE 27 mmol/L (21-32); CHLORIDE 99 mmol/L (101-111); GLOMERULAR FILTR. RATE CALC 6 mL/min (>90); GLUCOSE,RANDOM 134 mg/dL (70-105); POTASSIUM 4.1 mmol/L (3.5-5.1); SODIUM SERUM 137 mmol/L (136-145); TOTAL PROTEIN, SERUM 6.2 g/dL (6.0-8.3); UREA NITROGEN, BLOOD 59 mg/dL (7-18)
[2024-06-04 08:38] LABS: ALANINE AMINOTRANSFERASE < 6 U/L (12-78)
[2024-06-04 08:41] LABS: CREATININE 9.2 mg/dL (0.5-1.3)
--- NOTE | 2024-06-04 09:45 | NUR ---
PATIENT ACCEPTED MORNING MEDICATIONS EXCEPT NEPHROVITE. PICTURE TO BOTTOM WOUND TAKEN PER PROTOCOL. AT THIS TIME PATIENT HAS NC ON- O2SAT 94%
[2024-06-04] MEDS ORDERED: BALSAM PERU/CASTOR OIL 60 GM TUBE TP SCH (10:00)
[2024-06-04] MEDS: BALSAM PERU/CASTOR OIL 60 GM TUBE TP SCH (10:39)
--- NOTE | 2024-06-04 12:20 | PN ---
[facility] PROGRESS NOTE Date of Service: Jun 04, 2024 Time of Service: 12:20 SUBJECTIVE: 59-year-old male with underlying history of hypertension, hyperlipidemia, peripheral arterial disease, type 2 diabetes mellitus, ESRD on chronic home hemodialysis of Wednesday, Wednesday, Wednesday, history of chronic diabetic foot ulcer of the right heel being followed by Podiatry as outpatient, psoriasis on chronic outpatient steroids and Remicade infusion who presented to the ER after his PermCath for hemodialysis was dislodged. Dislodgement happened on Wednesday and patient decided to come to the ER today for further evaluation. Patient states that similar episode has happened about six months ago and patient had PermCath placed by IR. history of chronic diabetic foot/ heel ulcer being followed by Dr. Jackson as outpatient. He was seen by Dr. Jackson recently and has been taking oral outpatient antibiotics with doxycycline. He is supposed to see Dr. Mata with Infectious Disease on 05/26/2024 given persistent nonresolving infection. S/P PermCath placement 05/23/2024 by IR. S/p right BKA with Dr. Montes 05/30/202406/02 Today on bedside evaluation patient was found awake alert and oriented x 3. The power chart reviewed, vital signs, laboratory tests, imaging test and med ications have been reviewed. Patient was hard to arouse overnight, nephrology recommends lower dose of analgesics. Continue hemodialysis as scheduled. Continue IV Merrem and vancomycin. Continue gabapentin 300 mg p.o. daily secondary to right BKA pain at Dr. Montes's direction. Low-grade fever reported of 100 at midnight, latest vitals are stable, currently satting 96% on2 L nasal cannula. White count remained slightly elevated at 13.1, there is no bandemia. H&H is stable 9.4/30.1. BMP is stable. Continue IS hourly as tolerated. Pending chest x-ray. Continue working with physical therapy. Titrate off O2. we will follow up with Dr. Montes's discharge recommendations. 06/03 patient is seen and examined at bedside, no acute events overnight, case discussed with the RN. During my visit patient comfortably in bed, alert oriented x3, hemodynamically stable, saturating normal on room air. Patient was upgraded to the PCU yesterday as the patient noted to be drowsy, ABG the patient with hypercapnia, he was placed on AVAPS. Patient evaluated by turnaround engineer, recommendations were followed. Patient underwent hemodialysis at his scheduled day, tolerating well, 2.5 L removed. Today he is comfortable, denies chest pain, shortness shortness for breath, no nausea, no vomiting. He is answering questions appropriately. is at bedside, updated. We will request PT to evaluate the patient today. 06/04 this morning on bedside evaluation patient is alert and oriented x3. is at bedside. Vital signs are stable, afebrile, he was satting 95% on room air. White count improving now at 12, H&H is stable, CMP is stable. Continue dialysis. Continue wound care. Patient does his own dialysis at home in his comfortable returning home. Does not wish to be placed in a care home or rehab. Continues IV Merrem and vancomycin, planning to transition to p.o. Zyvox and Levaquin on discharge, recommended by Dr. Bernal. Patient has not worked with PT, reports that the previous times that PT has come to work with bebo zhou, patient was asleep. Continue IV antibiotics, continue wound care REVIEW OF SYSTEMS CONSTITUTIONAL: reports that permacath was dislodged today NEUROLOGICAL: Denies headache, amaurosis fugax, motor weakness, sensory deficit, vertigo/spinning sensation, gait abnormalities, or tremors. ENT: No hearing loss, otalgia, otorrhea, rhinitis, rhinorrhea, hoarseness, or sore throat. CARDIOVASCULAR: Denies any exertional angina, dyspnea on exertion, orthopnea, paroxysmal nocturnal dyspnea, palpitations, life-threatening arrhythmias, claudication. PULMONARY: Denies any shortness of breath, cough, phlegm/sputum, hemoptysis, pleuritic chest pain. SLEEP: Denies morning headaches, daytime somnolence or napping. Denies di fficulty falling asleep, staying asleep, waking from sleep. Denies knowledge of snoring. GASTROINTESTINAL: Denies any type of dysphagia to either liquids or solids. Denies nausea, vomiting, pyrosis, early satiety, abdominal pain, diarrhea, constipation, or changes in stool consistency or caliber. Denies coffee-ground emesis, hematemesis, hematochezia, or melanotic stools. GENITOURINARY: Denies frequency, urgency, nocturia, hematuria or incontinence (Storage/Irritative symptoms.) Low urinary stream, straining to void, urinary intermittency or hesitancy, splitting of the voiding stream, terminal dribbling. ENDOCRINOLOGIC: Denies polyuria, polydipsia, polyphagia or heat/cold intolerances. HEMATOLOGIC: Denies thrombophilia/previous clots, or coagulopathy/bleeding disorders. ONCOLOGIC: Denies personal history of malignancy. DERMATOLOGIC: ulcer involving the right foot heel PSYCHIATRIC: Denies any suicidal or homicidal ideation. Denies hallucinations. PHYSICAL EXAM GENERAL APPEARANCE: The patient is awake, alert, and oriented, in no acute cardiopulmonary distress. NEUROLOGICAL: Cranial nerves II-XII grossly intact. Motor is 5/5 in bilateral upper and lower extremities proximal to distal. No sensory deficits. HEENT: Face is symmetric. Pupils are equal and reactive. Extraocular movements are intact. NECK: Supple. No JVD. No thyromegaly. No submental, submandibular, pre- /postauricular, occipital or supraclavicular lymphadenopathy. CHEST: Normal chest expansion. No Telemetry. LUNGS: Absence of any rales, rhonchi or any wheezing. CARDIOVASCULAR: Regular. S1 and S2 normal. No appreciable rubs, murmurs or gallops. ABDOMEN: Soft, nontender, and nondistended. There is no rebound, voluntary guarding, or rigidity. : Deferred. No Hutson. EXTREMITIES: Patient has heel has a large area of eschar with possible necrotic region SKIN: No skin breakdown. Vital Signs (last 8hr) Date Time Temp Pulse Resp B/P (MAP) Pulse Ox O2 Delivery O2 Flow Rate FiO2 06/04/24 11:00 97.7 96 18 140/73 93 Nasal Cannula 06/04/24 08:15 94 Nasal Cannula* 2 28 06/04/24 07:00 97.9 97 19 126/65 87 Room Air LABS: Laboratory: Test 06/04/24 11:00 06/04/24 07:39 06/02/24 19:46 06/02/24 14:40 Range/Units Whole Blood Glucose 161 H 70-110 MG/DL White Blood Count 12.0 H 4.8-10.8 K/uL Red Blood Count 3.16 L 4.50-6.20 MIL/uL Hemoglobin 9.4 L 14.0-18.0 g/dL Hematocrit 29.0 L 42-54 % Mean Corpuscular Volume 91.8 79-99 fL Mean Corpuscular Hemoglobin 29.7 27.0-33.0 pg Mean Corpuscular Hemoglobin Concent 32.4 32.0-36.0 g/dL Red Cell Distribution Width 15.0 11.0-15.5 % Platelet Count 191 130-400 K/uL Mean Platelet Volume 11.1 H 7.5-10.5 fL Nucleated Red Blood Cells 0.0 0.0-0.19 % Sodium Level 137 136-145 mmol/L Potassium Level 4.1 3.5-5.1 mmol/L Chloride Level 99 L 101-111 mmol/L Carbon Dioxide Level 27 21-32 mmol/L Blood Urea Nitrogen 59 H 7-18 mg/dL Creatinine 9.2 *H 0.5-1.3 mg/dL Glomerular Filtration Rate Calc 6 >90 mL/min Random Glucose 134 H 70-105 mg/dL Total Calcium 7.5 L 8.5-10.1 mg/dL Magnesium Level 1.90 1.80-2.40 mg/dL Total Bilirubin 0.6 0.2-1.0 mg/dL Aspartate Amino Transf (AST/SGOT) 17 10-37 U/L Alanine Aminotransferase (ALT/SGPT) < 6 L 12-78 U/L Alkaline Phosphatase 67 50-136 U/L Total Protein 6.2 6.0-8.3 g/dL Albumin 2.3 L 3.5-5.0 g/dL Blood Gas Specimen Type Arterial Arterial Blood pH 7.392 7.350-7.450 Arterial Blood Partial Pressure CO2 44 35-48 mmHg Arterial Blood Partial Pressure O2 160.6 H 83.0-108.0 mmHg Arterial Blood HCO3 26.0 21.0-28.0 mmol/L Arterial Blood Oxygen Saturation 99.0 H 94.0-98.0 % Arterial Blood Base Excess 0.8 -2.0-3.0 mmol/L Blood Gas Temperature 37.0 35.5-37.0 CELSIUS Blood Gas Respiration Rate 22.0 min. Blood Gas Vent Mode AVAPS 10-25 ROOM AIR FiO2 50.0 % Blood Gas Tidal Volume 500 ml Blood Gas PEEP 5 cm H2O Blood Gas Specimen Comment RN, LB SARS-CoV-2 Antigen (Rapid) PRESUMPTIVE NEGATIVE NEGATIVE Test 06/02/24 12:23 Range/Units Blood Gas Flow-by 2.00 0.00-15.00 L/min Current Medications Medications (Trade) Dose Ordered Sig/Idania Route PRN Reason Start Time Stop Time Status Last Admin Dose Admin Acetaminophen (TYLenol 325MG TAB) 650 mg Q6H PRN PO MILD PAIN (1-3) 05/22/24 10:30 06/21/24 10:29 Acetaminophen/ Hydrocodone Bitart (NORco 5/325MG) 1 tab Q4H PRN PO MODERATE PAIN (4-6) 05/31/24 02:30 06/02/24 13:47 DC Acetaminophen/ Hydrocodone Bitart (NORco 5/325MG) 1 tab Q8H PRN PO MODERATE PAIN (4-6) 05/22/24 23:00 05/27/24 22:59 DC 05/22/24 22:51 1 TAB Acetaminophen/ Hydrocodone Bitart (NORco 5/325MG) 2 tab Q4H PRN PO SEVERE PAIN (7-10) 05/31/24 02:30 06/01/24 10:57 DC 05/31/24 15:01 2 TAB Aspirin (Aspirin 81mg Chew Tab) 81 mg DAILY PO 05/23/24 09:00 05/23/24 00:22 DC Aspirin (Aspirin 81mg Chew Tab) 81 mg DAILY PO 05/23/24 17:00 06/22/24 16:59 06/04/24 09:30 81 MG Atorvastatin Calcium (LIPItor 40MG) 40 mg HS PO 05/23/24 21:00 06/22/24 20:59 06/03/24 21:26 40 MG Benzonatate (Tessalon 100mg Caps) 100 mg Q8H PRN PO cough 05/28/24 14:00 06/27/24 13:59 05/29/24 16:37 100 MG Cefepime HCl (MAXipime 1 GM vial) 1 gm Q24H IVPB 05/22/24 11:00 05/26/24 12:08 DC 05/25/24 10:19 1 GM Cetirizine HCl (ZYRtec 5 MG TABLET) 5 mg DAILY PO 05/29/24 09:00 06/02/24 13:47 DC 06/02/24 11:27 5 MG Clopidogrel Bisulfate (plaVIX 75MG) 75 mg DAILY PO 05/23/24 13:00 05/23/24 00:22 DC Clopidogrel Bisulfate (plaVIX 75MG) 75 mg DAILY PO 05/23/24 17:00 05/23/24 14:21 DC Clopidogrel Bisulfate (plaVIX 75MG) 75 mg DAILY PO 05/24/24 09:00 06/23/24 08:59 06/04/24 09:30 75 MG Doxycycline Hyclate 250 ml @ 125 mls/hr Q12H IV 06/02/24 15:00 06/12/24 14:59 06/04/24 02:40 125 MLS/HR Doxycycline Hyclate (Doxycycline Hyclate) 100 mg BID PO 06/02/24 14:00 06/02/24 14:43 DC Gabapentin (NEURontin 300 MG CAP) 300 mg DAILY PO 06/01/24 09:00 06/02/24 11:59 DC 06/02/24 10:00 300 MG Heparin Sodium (Porcine) (HEParin 5,000 UNIT VIAL) 5,000 unit Q12H SQ 06/02/24 21:30 07/02/24 21:29 06/04/24 09:38 5,000 UNIT Heparin Sodium (Porcine) (HEParin 5,000 UNIT VIAL) 10,000 unit AD IRRIG 05/24/24 13:00 06/23/24 12:59 06/02/24 18:29 10,000 UNIT Hydralazine HCl (APRESOLine 20MG INJ) 5 mg Q6H PRN IV ADMINISTER FOR SBP > 160 05/22/24 12:30 06/21/24 12:29 05/29/24 04:52 5 MG Hydromorphone HCl (DiLAUDid 0.5MG INJ) 0.2 mg Q3H3 PRN IVP SEVERE PAIN (7-10) 06/01/24 11:00 06/01/24 15:43 DC 06/01/24 12:58 0.2 MG Hydromorphone HCl (DiLAUDid 0.5MG INJ) 0.2 mg Q6H PRN IVP SEVERE PAIN (7-10) 06/01/24 16:00 06/01/24 18:03 DC Insulin Glargine (LANtus 100 UNITS/ML 10 ML VIAL) 15 units HS SQ 05/28/24 21:00 06/27/24 20:59 05/30/24 20:54 15 UNITS Insulin Human Regular (humuLIN R 100 UNIT/ML 3ML) INSULIN SLIDING SCAL... ACHS SQ 05/22/24 11:30 05/27/24 12:19 DC 05/27/24 06:05 7 UNIT Insulin Human Regular (humuLIN R 100 UNIT/ML 3ML) INSULIN SLIDING SCAL... ACHS SQ 05/27/24 16:30 06/26/24 16:29 05/31/24 21:43 6 UNIT Meropenem (Merrem 1gm) 1 gm Q24H IV 05/26/24 14:00 05/26/24 16:30 DC Meropenem (Merrem 1gm) 1 gm Q24H IV 05/26/24 18:00 06/16/24 17:59 06/03/24 18:07 1 GM Montelukast Sodium (SinguLAIR) 10 mg HS PO 05/28/24 21:00 06/27/24 20:59 06/03/24 21:26 10 MG Morphine Sulfate (morPHINE 4MG SYG) 4 mg Q2H PRN IVP SEVERE PAIN (7-10) 05/31/24 05:30 06/01/24 10:57 DC 06/01/24 10:25 4 MG Morphine Sulfate (morPHINE 4MG SYG) 4 mg Q4H PRN IVP SEVERE PAIN (7-10) 05/31/24 02:30 05/31/24 05:03 DC 05/31/24 02:20 4 MG Nifedipine (adALAT 30MG) 60 mg Q24H PO 05/22/24 11:00 05/22/24 19:16 DC Nifedipine (adALAT 30MG) 60 mg Q24H PO 05/22/24 19:30 06/21/24 19:29 06/03/24 21:26 60 MG Ondansetron HCl (zoFRAN 4MG INJ) 4 mg Q6H PRN IVP NAUSEA/VOMITING 05/22/24 10:30 06/21/24 10:29 Pantoprazole Sodium (PROTonix 40MG INJ) 40 mg DAILY IVP 06/03/24 09:00 07/03/24 08:59 06/04/24 09:31 40 MG Pantoprazole Sodium (PROTonix 40MG TAB) 40 mg DAILY PO 05/23/24 09:00 06/02/24 21:08 DC 06/02/24 10:01 40 MG Pharmacy Profile Note (Pharmacy Communication) 1 each ONCE MISC 05/22/24 11:00 05/22/24 10:57 DC Prednisone (deltaSONE/ oraSONE 5MG) 5 mg BID PO 05/22/24 21:00 06/21/24 20:59 06/04/24 09:30 5 MG Sodium Chloride 1,000 ml @ 0 mls/hr ONCE IV 05/27/24 12:00 06/26/24 11:59 06/02/24 18:01 100 MLS/HR Vancomycin HCl (Vancomycin 750mg) 750 mg QMOWEFR[DIALYSIS] IVPB 05/31/24 16:00 06/10/24 15:59 06/02/24 19:15 750 MG Vancomycin HCl (Vancomycin 750mg) 750 mg QMOWEFR[DIALYSIS] IVPB 05/26/24 16:00 05/26/24 17:33 DC Vancomycin HCl (Vancomycin 750mg) 750 mg QMOWEFR[DIALYSIS] IVPB 05/27/24 16:00 05/29/24 16:23 DC 05/27/24 15:33 750 MG Vancomycin HCl (Vancomycin 750mg) 750 mg QTUTHSA[DIALYSIS] IVPB 05/30/24 16:00 05/30/24 15:59 DC Vancomycin HCl (Vancomycin Protocol) 1 each AD IV 05/22/24 11:00 06/05/24 10:59 Vitamin B Complex/ Vit C/Folic Acid (Nephrovite Tablet) 1 cap DAILY PO 05/23/24 09:00 06/22/24 08:59 06/02/24 10:01 1 CAP Wound Care/ Dressing Products (Venelex Ointment) BID TP 06/04/24 10:00 07/04/24 09:59 06/04/24 10:39 1 GM Wound Care/ Dressing Products (Venelex Ointment) ONCE TP 06/04/24 10:00 06/04/24 10:03 DC DIAGNOSTICS / RADIOLOGY: [ ] ASSESSMENT: Dislodged PermCath, POA s/p PermCath placement 05/23/2024 by IR History of ESRD on home hemodialysis therapy, POA osteomyelitis per foot x-ray 05/22/2024 Right heel culture growing Enterococcus faecalis, Streptococcus MRSA, Pseudomonas aeruginosa 05/22/2024 Chronic leukocytosis, POA Underlying immunosuppression on outpatient treatment with steroids and Remicade, POA Nonhealing diabetic foot ulcer/heel ulcer with associated deep eschar/necrotic region, being followed by Dr. Jackson as outpatient, POA Anemia of renal disease, POA Underlying history of type 2 diabetes mellitus, POA History of chronic prednisone use as outpatient, POA Uncontrolled Hypertension, POA Hyperlipidemia, POA History of peripheral arterial disease, POA Prior history of angioplasty to right popliteal artery and distal SFA by Dr. Arzate on 01/24/2024, POA History penicillin allergy, POA Noncompliance PLAN: Continue admission in progressive care unit Continue telemetry monitoring Continue renal dialysis diet S/p right BKA by Dr. Montes on 05/30/2024 Continue low dose of analgesics as per family physician Dr. Montes recommends Drains be removed two days after surgery, keep incision clean and dry, continue wound management,4 x 4 and Giuseppe wrap as needed Consulting Dr. Pavon for wound care recommendations. Consults: Meals On Wheels Driver: Dr Jackson, synthetic staple extruder DR Crabtree , family physician DR Mera , surgeon , ID refused , 2nd opinion Dr. Edmonds ; Dr Montes Continue supplemental O2 to keep O2 saturations above 92%, currently satting 96% on 2 L nasal cannula Please titrate down supplemental O2 to keep O2 sats >92%. DC if not needed. IS hourly as tolerated Antibiotics: Vancomycin, IV Merrem IV , IV vancomycin on dialysis days We will transition to p.o. antibiotics on discharge if patient goes home. Pend ing PT input and recommendations. Blood cultures negative Wound cultures growing Prevotella Melaninogenica, Enterococcus faecalis, Staphylococcus aureus MRSA, Pseudomonas aeruginosa Continue local wound care nonweightbearing Continue to work with physical therapy Continue dialysis3 times a week via PermCath. TTS schedule Avoid NSAIDs renal dose medication, fluid restriction daily weight Continue dual antiplatelet therapy with aspirin and Plavix, continue statin therapy Continue SSI, basal insulin Continue glucometer checks before meals and at bedtime Continue hypoglycemic protocol Monitor a.m. labs PRN Treatment - Add when necessary meds for nausea, vomiting, pain, constipation, insomnia. DVT/GI prophylaxis- Continue heparin and Protonix at current doses. Full CODE STATUS Plan of action discussed, all questions answered, agreed and understood the information provided. Total PCU time spent greater than 30 minutes. SCHWAB,SIRIA O ETHYLBENZENE CRACKING SUPERVISOR Jun 04, 2024 12:20
--- NOTE | 2024-06-04 14:37 | PN ---
NEPHROLOGY FOLLOWUP SUBJECTIVE: The patient offered no major complaint. He was transferred to the high level of care, as he was confused, acidotic post, as he has received a significant amount of opioids. OBJECTIVE: GENERAL: The patient is not in any major acute distress. He is awake. He is in no acute respiratory distress. VITAL SIGNS: Blood pressure 140/73, respirations 18, pulse 96, and temperature 97.7. LUNGS: Clear to auscultation and inspection. HEART: Normal cardiac sound. ABDOMEN: Nondistended. EXTREMITIES: No edema. LABORATORY DATA: WBC count of 12.0, hemoglobin 9.4. The sodium is 135, potassium 4.1, BUN 59, creatinine 9.2. ASSESSMENT: * End-stage renal disease. * Diabetes mellitus type 2 with nephropathy. * Hypertension with renal manifestation. * Peripheral arterial disease, status post left below-knee amputation. PLAN: To continue current medications. Continue current diet. Dialysis will be done as per regular schedule of Wednesday, Wednesday, and Fridays. We will continue monitoring the patient clinically. TID: [id number] RECEIPT: [id number]
[2024-06-04] MEDS: acetaMINOPHEN 325 MG TAB PO PRN (14:50)
--- NOTE | 2024-06-04 16:00 | PN ---
[facility] PROGRESS NOTE Date Patient Seen: Jun 04, 2024 Time of Visit: 15:56 Supervising Physician: DR. BEKAH ROSE Primary Care Physician: Dr Chuck Olmedo MD Outpatient Specialists: Inpatient Consults: Dr Jackson, Dr Oden, Dr Mera, Dr Montes, Dr Edmonds PROBLEM LIST: Acute hypoxic and Hypercapnic respiratory failure not POA Opioid induced respiratory depression Metabolic encephalopathy, not POA Dislodged PermCath, POA s/p left side chest wall Permacth placement 05/23/24 History of ESRD on home hemodialysis therapy, POA osteomyelitis per foot x-ray 05/22/2024 S/P Rt BKA 05/22/24 Right heel culture growing Enterococcus faecalis, Streptococcus MRSA, Pseudomonas aeruginosa 05/22/2024 Chronic leukocytosis, POA Underlying immunosuppression on outpatient treatment with steroids and Remicade, POA Anemia of renal disease, POA Uncontrolled type 2 diabetes mellitus, POA Uncontrolled Hypertension, POA Hyperlipidemia, POA History of severe peripheral arterial disease, POA Prior history of angioplasty to right popliteal artery and distal SFA by Dr. Arzate on 01/24/2024, POA History penicillin allergy, POA Noncompliance INTERVAL HISTORY: Patient is a 59 year old gentleman awake, alert, well oriented, not in distress resting on bed, complains of pain, otherwise hemodynamically stable, from our stand point of view is cleared to be discharge home, follow up with case management for disposition plan. REVIEW OF SYSTEMS: 12 point review of systems done, all pertinent information addressed PHYSICAL EXAM: GENERAL: Lethargic GCS of 13 HEENT: Sclera non icteric, moist mucosa NECK: Short no JVD, trachea midline LUNGS: Coarse crackles sounds bilaterally. No wheezes HEART: Regular rate and rhythm. Normal S1 and S2, without murmurs ABD: Abdomen soft, nontender. Bowel sounds present EXT: No clubbing cyanosis or edema dressing to right BKA clean dry and intact NEURO: GCS of 13 no focal weakness, when he is awake oriented x3. Vital Signs (last 8hr) Date Time Temp Pulse Resp B/P (MAP) Pulse Ox O2 Delivery O2 Flow Rate FiO2 06/04/24 15:52 97.5 92 18 115/51 94 Room Air 06/04/24 15:03 97.5 91 18 124/63 95 Room Air 06/04/24 11:00 97.7 96 18 140/73 93 Nasal Cannula 06/04/24 08:15 94 Nasal Cannula* 2 28 LABS: Hematology Labs: Test 06/04/24 07:39 Range/Units White Blood Count 12.0 H 4.8-10.8 K/uL Red Blood Count 3.16 L 4.50-6.20 MIL/uL Hemoglobin 9.4 L 14.0-18.0 g/dL Hematocrit 29.0 L 42-54 % Mean Corpuscular Volume 91.8 79-99 fL Mean Corpuscular Hemoglobin 29.7 27.0-33.0 pg Mean Corpuscular Hemoglobin Concent 32.4 32.0-36.0 g/dL Red Cell Distribution Width 15.0 11.0-15.5 % Platelet Count 191 130-400 K/uL Mean Platelet Volume 11.1 H 7.5-10.5 fL Nucleated Red Blood Cells 0.0 0.0-0.19 % Chemistry Labs: Test 06/04/24 15:41 06/04/24 07:39 Range/Units Whole Blood Glucose 179 H 70-110 MG/DL Sodium Level 137 136-145 mmol/L Potassium Level 4.1 3.5-5.1 mmol/L Chloride Level 99 L 101-111 mmol/L Carbon Dioxide Level 27 21-32 mmol/L Blood Urea Nitrogen 59 H 7-18 mg/dL Creatinine 9.2 *H 0.5-1.3 mg/dL Glomerular Filtration Rate Calc 6 >90 mL/min Random Glucose 134 H 70-105 mg/dL Total Calcium 7.5 L 8.5-10.1 mg/dL Magnesium Level 1.90 1.80-2.40 mg/dL Total Bilirubin 0.6 0.2-1.0 mg/dL Aspartate Amino Transf (AST/SGOT) 17 10-37 U/L Alanine Aminotransferase (ALT/SGPT) < 6 L 12-78 U/L Alkaline Phosphatase 67 50-136 U/L Total Protein 6.2 6.0-8.3 g/dL Albumin 2.3 L 3.5-5.0 g/dL DIAGNOSTICS / RADIOLOGY RESULTS: [ ] PLAN NEURO: Minimize central acting medications as possible. Maintain fall precautions, adequate lighting during the day PULMONARY: Supplemental 02 as needed. Maintain aspiration precautions at all times CARDIOVASCULAR: Follow hemodynamics. Vital signs per facility protocol GI & NUTRITION: Continue with nutritional support. Continue stool softeners and laxatives as needed. KIDNEYS & ELECTROLYTES: Strict monitoring of intake, output and overall fluid balance. Avoid nephrotoxic medications to the extent possible. Medications to be dosed according to renal function. Monitor electrolytes and replace as needed ENDOCRINE: Maintain blood glucose between 100-180 at all times. Hypoglycemia protocol in place INFECTIOUS DISEASE: Trend temperature, WBC and procalcitonin level Follow cultures, deescalate antibiotics as soon as possible. Panculture if new onset fever ONCOLOGY/HEMATOLOGY/COAGULATION: Monitor for s/s of bleeding Monitor hemoglobin, coagulation studies as needed SKIN: Pressure ulcer prevention per facility protocol Specialty mattress ORTHO/REHAB: Continue PT/OT Prophylaxis: Continue GI and DVT prophylaxis Code Status: Full Resuscitation Disposition: TBD ATTESTATION BY PHYSICIAN Documentation assistance provided by a scribe, information recorded by the scribe was done at my direction and has been reviewed and validated by me." BEKAH ROSE MD I personally scribed for BEKAH ROSE MD ([email or web address]) on 06/04/24 at 16:00. Electronically submitted by Morena Alfred ([email or web address]). BEKAH ROSE MD Jun 04, 2024 16:00
--- NOTE | 2024-06-04 16:34 | NUR ---
Patient refused PT today. He reports that PT is a scam for money. PT team to continue to encourage pt to participate.
[2024-06-05] VITALS (25 sets, daily range): BP systolic 92–138; BP diastolic 46–68; PULSE 79–95; RESP 14–20; TEMP 97.4–98.1; O2SAT 92–97
--- NOTE | 2024-06-05 02:55 | NUR ---
nurse note patient alert and oriented times 3. plan of care discussed with him and he verbalized understanding. patient has no pain tonight. shelby Degroot, and I move him on his sides to prevent more skin breakdown. venelex applied to his buttock wound. he has slept about 8 hours tonight. call light within reach, bed alarm on, 2 side rails up. will continue to monitor patient.
[2024-06-05 05:04] LABS: BASOPHILS # (AUTO) 0.01 K/uL (0.00-0.20); BASOPHILS % (AUTO) 0.1 % (0.0-5.0); EOSINOPHILS # (AUTO) 0.05 K/uL (0.00-0.70); EOSINOPHILS % (AUTO) 0.6 % (0.0-8.0); LYMPHOCYTES # (AUTO) 1.5 K/uL (1.0-4.8); LYMPHOCYTES % (AUTO) 16.2 % (21.0-51.0); MEAN CORPUSCULAR HEMOGLOBIN 30.1 pg (27.0-33.0); MEAN CORPUSCULAR HGB CONC 32.2 g/dL (32.0-36.0); MEAN CORPUSCULAR VOLUME 93.4 fL (79-99); MONOCYTES # (AUTO) 0.5 K/uL (0.1-1.0); NEUTROPHILS # (AUTO) 6.9 K/uL (1.8-7.7); PLATELET COUNT (AUTO) 174 K/uL (130-400); RED BLOOD CELL COUNT(AUTO) 2.89 MIL/uL (4.50-6.20); RED CELL DISTRIBUTION WIDTH 14.7 % (11.0-15.5)
[2024-06-05 05:20] LABS: POTASSIUM 4.5 mmol/L (3.5-5.1); VANCOMYCIN TROUGH 21.5 UG/ML (10.0-20.0)
[2024-06-05 05:57] LABS: CREATININE 10.4 mg/dL (0.5-1.3)
[2024-06-05] MEDS ORDERED: PHARMACY COMMUNICATION MISC SCH (06:30)
--- NOTE | 2024-06-05 09:50 | PN ---
SUBJECTIVE: The patient offers no new complaints. OBJECTIVE: GENERAL: The patient is not in any major acute distress. He is awake, alert. VITAL SIGNS: Blood pressure is 130/68, respirations 19, pulse 83, temperature 97.7. LUNGS: Clear to auscultation and inspection. HEART: Normal cardiac sound. ABDOMEN: Soft, nondistended. EXTREMITIES: No edema. LABORATORY DATA: WBC count is 9.0, hemoglobin 8.7. Sodium 138, potassium 4.5. ASSESSMENT: * End-stage renal disease. The patient dialyzes on MWF. * Diabetes mellitus type 2 with nephropathy. * Hypertension with renal manifestation. * Anemia on chronic kidney disease. * Status post right below-knee amputation. PLAN: The patient will be dialyzed today. Continue renal diet. No change in current medications. Other plans as per other physicians involved in the care of this patient. TID: [id number] RECEIPT: [id number]
--- NOTE | 2024-06-05 13:20 | PN ---
[facility] PROGRESS NOTE Date of Service: Jun 05, 2024 Time of Service: 12:[address] Joy SUBJECTIVE: 59-year-old male with underlying history of hypertension, hyperlipidemia, peripheral arterial disease, type 2 diabetes mellitus, ESRD on chronic home h emodialysis of Wednesday, Wednesday, Wednesday, history of chronic diabetic foot ulcer of the right heel being followed by Podiatry as outpatient, psoriasis on chronic outpatient steroids and Remicade infusion who presented to the ER after his PermCath for hemodialysis was dislodged. Dislodgement happened on Wednesday and patient decided to come to the ER today for further evaluation. Patient states that similar episode has happened about six months ago and patient had PermCath placed by IR. history of chronic diabetic foot/ heel ulcer being followed by Dr. Jackson as outpatient. He was seen by Dr. Jackson recently and has been taking oral outpatient antibiotics with doxycycline. He is supposed to see Dr. Mata with Infectious Disease on 05/26/2024 given persistent nonresolving infection. S/P PermCath placement 05/23/2024 by IR. S/p right BKA with Dr. Montes 05/30/202406/02 Today on bedside evaluation patient was found awake alert and oriented x 3. The power chart reviewed, vital signs, laboratory tests, imaging test and medications have been reviewed. Patient was hard to arouse overnight, nephrology recommends lower dose of analgesics. Continue hemodialysis as scheduled. Continue IV Merrem and vancomycin. Continue gabapentin 300 mg p.o. daily secondary to right BKA pain at Dr. Montes's direction. Low-grade fever reported of 100 at midnight, latest vitals are stable, currently satting 96% on2 L nasal cannula. White count remained slightly elevated at 13.1, there is no bandemia. H&H is stable 9.4/30.1. BMP is stable. Continue IS hourly as tolerated. Pending chest x-ray. Continue working with physical therapy. Titrate off O2. we will follow up with Dr. Montes's discharge recommendations. 06/03 patient is seen and examined at bedside, no acute events overnight, case discussed with the RN. During my visit patient comfortably in bed, alert oriented x3, hemodynamically stable, saturating normal on room air. Patient was upgraded to the PCU yesterday as the patient noted to be drowsy, ABG the patient with hypercapnia, he was placed on AVAPS. Patient evaluated by environmental economist, recommendations were followed. Patient underwent hemodialysis at his scheduled day, tolerating well, 2.5 L removed. Today he is comfortable, denies chest pain, shortness shortness for breath, no nausea, no vomiting. He is answering questions appropriately. is at bedside, updated. We will request PT to evaluate the patient today. 06/04 this morning on bedside evaluation patient is alert and oriented x3. is at bedside. Vital signs are stable, afebrile, he was satting 95% on room air. White count improving now at 12, H&H is stable, CMP is stable. Continue dialysis. Continue wound care. Patient does his own dialysis at home in his comfortable returning home. Does not wish to be placed in a chcf or rehab. Continues IV Merrem and vancomycin, planning to transition to p.o. Zyvox and Levaquin on discharge, recommended by Dr. Bernal. Patient has not worked with PT, reports that the previous times that PT has come to work with patient, patient was asleep. Continue IV antibiotics, continue wound care 06/05 patient was seen by nurse practitioner physician during rounding in room 311 lying in bed. Patient stated that he would like to be discharged home when medically cleared. Nurse practitioner was able to call Dr. Jackson today at 12:55 p.m. and we will consult case management for discharge disposition to home with home health for wound care and physical therapy. Patient continues to be on IV Merrem and vancomycin. Once patient will be able to be discharged home we will switch patient to p.o. Zyvox and Levaquin as per Dr. Bernal. 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 Patient was cleared by be on inpatient services to be discharged. We will continue to follow up in the meantime. Case management consulted for home with the home health. A.m. labs REVIEW OF SYSTEMS CONSTITUTIONAL: Denies any problems NEUROLOGICAL: Denies headache, amaurosis fugax, motor weakness, sensory deficit, vertigo/spinning sensation, gait abnormalities, or tremors. ENT: No hearing loss, otalgia, otorrhea, rhinitis, rhinorrhea, hoarseness, or sore throat. CARDIOVASCULAR: Denies any exertional angina, dyspnea on exertion, orthopnea, paroxysmal nocturnal dyspnea, palpitations, life-threatening arrhythmias, claudication. PULMONARY: Denies any shortness of breath, cough, phlegm/sputum, hemoptysis, pleuritic chest pain. SLEEP: Denies morning headaches, daytime somnolence or napping. Denies difficulty falling asleep, staying asleep, waking from sleep. Denies knowledge of snoring. GASTROINTESTINAL: Denies any type of dysphagia to either liquids or solids. Denies nausea, vomiting, pyrosis, early satiety, abdominal pain, diarrhea, constipation, or changes in stool consistency or caliber. Denies coffee-ground emesis, hematemesis, hematochezia, or melanotic stools. GENITOURINARY: Denies frequency, urgency, nocturia, hematuria or incontinence (Storage/Irritative symptoms.) Low urinary stream, straining to void, urinary intermittency or hesitancy, splitting of the voiding stream, terminal dribbling. ENDOCRINOLOGIC: Denies polyuria, polydipsia, polyphagia or heat/cold intolerances. HEMATOLOGIC: Denies thrombophilia/previous clots, or coagulopathy/bleeding disorders. ONCOLOGIC: Denies personal history of malignancy. DERMATOLOGIC: ulcer involving the right foot heel PSYCHIATRIC: Denies any suicidal or homicidal ideation. Denies hallucinations. PHYSICAL EXAM GENERAL APPEARANCE: The patient is awake, alert, and oriented, in no acute cardiopulmonary distress. NEUROLOGICAL: Cranial nerves II-XII grossly intact. Motor is 5/5 in bilateral upper and lower extremities proximal to distal. No sensory deficits. HEENT: Face is symmetric. Pupils are equal and reactive. Extraocular movements are intact. NECK: Supple. No JVD. No thyromegaly. No submental, submandibular, pre-/ postauricular, occipital or supraclavicular lymphadenopathy. CHEST: Normal chest expansion. No Telemetry. LUNGS: Absence of any rales, rhonchi or any wheezing. CARDIOVASCULAR: Regular. S1 and S2 normal. No appreciable rubs, murmurs or gallops. ABDOMEN: Soft, nontender, and nondistended. There is no rebound, voluntary guarding, or rigidity. : Deferred. No Hutson. EXTREMITIES: Right BKA SKIN: No skin breakdown. Vital Signs (last 8hr) Date Time Temp Pulse Resp B/P (MAP) Pulse Ox O2 Delivery O2 Flow Rate FiO2 06/05/24 12:00 97.9 79 18 131/64 97 Room Air 06/05/24 08:35 90 20 N/A Room Air 21 06/05/24 08:00 97.7 83 18 130/68 Room Air LABS: Laboratory: Test 06/05/24 05:08 06/05/24 04:57 06/04/24 07:39 Range/Units Whole Blood Glucose 197 H 70-110 MG/DL White Blood Count 9.0 4.8-10.8 K/uL Red Blood Count 2.89 L 4.50-6.20 MIL/uL Hemoglobin 8.7 L 14.0-18.0 g/dL Hematocrit 27.0 L 42-54 % Mean Corpuscular Volume 93.4 79-99 fL Mean Corpuscular Hemoglobin 30.1 27.0-33.0 pg Mean Corpuscular Hemoglobin Concent 32.2 32.0-36.0 g/dL Red Cell Distribution Width 14.7 11.0-15.5 % Platelet Count 174 130-400 K/uL Mean Platelet Volume 10.7 H 7.5-10.5 fL Immature Granulocyte % (Auto) 1.1 H 0-1 % Neutrophils (%) (Auto) 77.0 40.0-77.0 % Lymphocytes (%) (Auto) 16.2 L 21.0-51.0 % Monocytes (%) (Auto) 5.0 3.0-13.0 % Eosinophils (%) (Auto) 0.6 0.0-8.0 % Basophils (%) (Auto) 0.1 0.0-5.0 % Neutrophils # (Auto) 6.9 1.8-7.7 K/uL Lymphocytes # (Auto) 1.5 1.0-4.8 K/uL Monocytes # (Auto) 0.5 0.1-1.0 K/uL Eosinophils # (Auto) 0.05 0.00-0.70 K/uL Basophils # (Auto) 0.01 0.00-0.20 K/uL Absolute Immature Granulocyte (auto 0.10 0-1 K/uL Nucleated Red Blood Cells 0.0 0.0-0.19 % Sodium Level 138 136-145 mmol/L Potassium Level 4.5 3.5-5.1 mmol/L Chloride Level 100 L 101-111 mmol/L Carbon Dioxide Level 29 21-32 mmol/L Blood Urea Nitrogen 70 H 7-18 mg/dL Creatinine 10.4 *H 0.5-1.3 mg/dL Glomerular Filtration Rate Calc 5 >90 mL/min Random Glucose 200 H 70-105 mg/dL Total Calcium 7.3 L 8.5-10.1 mg/dL Vancomycin Level Trough 21.5 H 10.0-20.0 UG/ML Magnesium Level 1.90 1.80-2.40 mg/dL Total Bilirubin 0.6 0.2-1.0 mg/dL Aspartate Amino Transf (AST/SGOT) 17 10-37 U/L Alanine Aminotransferase (ALT/SGPT) < 6 L 12-78 U/L Alkaline Phosphatase 67 50-136 U/L Total Protein 6.2 6.0-8.3 g/dL Albumin 2.3 L 3.5-5.0 g/dL Current Medications Medications (Trade) Dose Ordered Sig/Idania Route PRN Reason Start Time Stop Time Status Last Admin Dose Admin Acetaminophen (TYLenol 325MG TAB) 650 mg Q6H PRN PO MILD PAIN (1-3) 05/22/24 10:30 06/21/24 10:29 06/04/24 14:50 650 MG Acetaminophen/ Hydrocodone Bitart (NORco 5/325MG) 1 tab Q4H PRN PO MODERATE PAIN (4-6) 05/31/24 02:30 06/02/24 13:47 DC Acetaminophen/ Hydrocodone Bitart (NORco 5/325MG) 1 tab Q8H PRN PO MODERATE PAIN (4-6) 05/22/24 23:00 05/27/24 22:59 DC 05/22/24 22:51 1 TAB Acetaminophen/ Hydrocodone Bitart (NORco 5/325MG) 2 tab Q4H PRN PO SEVERE PAIN (7-10) 05/31/24 02:30 06/01/24 10:57 DC 05/31/24 15:01 2 TAB Aspirin (Aspirin 81mg Chew Tab) 81 mg DAILY PO 05/23/24 09:00 05/23/24 00:22 DC Aspirin (Aspirin 81mg Chew Tab) 81 mg DAILY PO 05/23/24 17:00 06/22/24 16:59 06/04/24 09:30 81 MG Atorvastatin Calcium (LIPItor 40MG) 40 mg HS PO 05/23/24 21:00 06/22/24 20:59 06/04/24 20:45 40 MG Benzonatate (Tessalon 100mg Caps) 100 mg Q8H PRN PO cough 05/28/24 14:00 06/27/24 13:59 05/29/24 16:37 100 MG Cefepime HCl (MAXipime 1 GM vial) 1 gm Q24H IVPB 05/22/24 11:00 05/26/24 12:08 DC 05/25/24 10:19 1 GM Cetirizine HCl (ZYRtec 5 MG TABLET) 5 mg DAILY PO 05/29/24 09:00 06/02/24 13:47 DC 06/02/24 11:27 5 MG Clopidogrel Bisulfate (plaVIX 75MG) 75 mg DAILY PO 05/23/24 13:00 05/23/24 00:22 DC Clopidogrel Bisulfate (plaVIX 75MG) 75 mg DAILY PO 05/23/24 17:00 05/23/24 14:21 DC Clopidogrel Bisulfate (plaVIX 75MG) 75 mg DAILY PO 05/24/24 09:00 06/23/24 08:59 06/04/24 09:30 75 MG Doxycycline Hyclate 250 ml @ 125 mls/hr Q12H IV 06/02/24 15:00 06/12/24 14:59 06/05/24 01:14 125 MLS/HR Doxycycline Hyclate (Doxycycline Hyclate) 100 mg BID PO 06/02/24 14:00 06/02/24 14:43 DC Gabapentin (NEURontin 300 MG CAP) 300 mg DAILY PO 06/01/24 09:00 06/02/24 11:59 DC 06/02/24 10:00 300 MG Heparin Sodium (Porcine) (HEParin 5,000 UNIT VIAL) 5,000 unit Q12H SQ 06/02/24 21:30 07/02/24 21:29 06/05/24 09:46 5,000 UNIT Heparin Sodium (Porcine) (HEParin 5,000 UNIT VIAL) 10,000 unit AD IRRIG 05/24/24 13:00 06/23/24 12:59 06/02/24 18:29 10,000 UNIT Hydralazine HCl (APRESOLine 20MG INJ) 5 mg Q6H PRN IV ADMINISTER FOR SBP > 160 05/22/24 12:30 06/21/24 12:29 05/29/24 04:52 5 MG Hydromorphone HCl (DiLAUDid 0.5MG INJ) 0.2 mg Q3H3 PRN IVP SEVERE PAIN (7-10) 06/01/24 11:00 06/01/24 15:43 DC 06/01/24 12:58 0.2 MG Hydromorphone HCl (DiLAUDid 0.5MG INJ) 0.2 mg Q6H PRN IVP SEVERE PAIN (7-10) 06/01/24 16:00 06/01/24 18:03 DC Insulin Glargine (LANtus 100 UNITS/ML 10 ML VIAL) 15 units HS SQ 05/28/24 21:00 06/27/24 20:59 06/04/24 20:46 15 UNITS Insulin Human Regular (humuLIN R 100 UNIT/ML 3ML) INSULIN SLIDING SCAL... ACHS SQ 05/22/24 11:30 05/27/24 12:19 DC 05/27/24 06:05 7 UNIT Insulin Human Regular (humuLIN R 100 UNIT/ML 3ML) INSULIN SLIDING SCAL... ACHS SQ 05/27/24 16:30 06/26/24 16:29 06/05/24 06:03 4 UNIT Meropenem (Merrem 1gm) 1 gm Q24H IV 05/26/24 14:00 05/26/24 16:30 DC Meropenem (Merrem 1gm) 1 gm Q24H IV 05/26/24 18:00 06/16/24 17:59 06/04/24 18:22 1 GM Montelukast Sodium (SinguLAIR) 10 mg HS PO 05/28/24 21:00 06/27/24 20:59 06/04/24 20:45 10 MG Morphine Sulfate (morPHINE 4MG SYG) 4 mg Q2H PRN IVP SEVERE PAIN (7-10) 05/31/24 05:30 06/01/24 10:57 DC 06/01/24 10:25 4 MG Morphine Sulfate (morPHINE 4MG SYG) 4 mg Q4H PRN IVP SEVERE PAIN (7-10) 05/31/24 02:30 05/31/24 05:03 DC 05/31/24 02:20 4 MG Nifedipine (adALAT 30MG) 60 mg Q24H PO 05/22/24 11:00 05/22/24 19:16 DC Nifedipine (adALAT 30MG) 60 mg Q24H PO 05/22/24 19:30 06/21/24 19:29 06/04/24 20:45 60 MG Ondansetron HCl (zoFRAN 4MG INJ) 4 mg Q6H PRN IVP NAUSEA/VOMITING 05/22/24 10:30 06/21/24 10:29 Pantoprazole Sodium (PROTonix 40MG INJ) 40 mg DAILY IVP 06/03/24 09:00 07/03/24 08:59 06/05/24 09:37 40 MG Pantoprazole Sodium (PROTonix 40MG TAB) 40 mg DAILY PO 05/23/24 09:00 06/02/24 21:08 DC 06/02/24 10:01 40 MG Pharmacy Profile Note (Pharmacy Communication) 1 each ONCE MISC 06/05/24 06:30 06/05/24 06:26 DC Pharmacy Profile Note (Pharmacy Communication) 1 each ONCE MISC 05/22/24 11:00 05/22/24 10:57 DC Prednisone (deltaSONE/ oraSONE 5MG) 5 mg BID PO 05/22/24 21:00 06/21/24 20:59 06/05/24 09:37 5 MG Sodium Chloride 1,000 ml @ 0 mls/hr ONCE IV 05/27/24 12:00 06/26/24 11:59 06/02/24 18:01 100 MLS/HR Vancomycin HCl (Vancomycin 750mg) 750 mg QMOWEFR[DIALYSIS] IVPB 05/31/24 16:00 06/10/24 15:59 06/02/24 19:15 750 MG Vancomycin HCl (Vancomycin 750mg) 750 mg QMOWEFR[DIALYSIS] IVPB 05/26/24 16:00 05/26/24 17:33 DC Vancomycin HCl (Vancomycin 750mg) 750 mg QMOWEFR[DIALYSIS] IVPB 05/27/24 16:00 05/29/24 16:23 DC 05/27/24 15:33 750 MG Vancomycin HCl (Vancomycin 750mg) 750 mg QTUTHSA[DIALYSIS] IVPB 05/30/24 16:00 05/30/24 15:59 DC Vancomycin HCl (Vancomycin Protocol) 1 each AD IV 05/22/24 11:00 06/05/24 10:59 DC Vitamin B Complex/ Vit C/Folic Acid (Nephrovite Tablet) 1 cap DAILY PO 05/23/24 09:00 06/22/24 08:59 06/05/24 09:37 1 CAP Wound Care/ Dressing Products (Venelex Ointment) BID TP 06/04/24 10:00 07/04/24 09:59 06/05/24 09:47 1 GM Wound Care/ Dressing Products (Venelex Ointment) ONCE TP 06/04/24 10:00 06/04/24 10:03 DC DIAGNOSTICS / RADIOLOGY: [ ] ASSESSMENT: Dislodged PermCath, POA -resolved s/p PermCath placement 05/23/2024 by IR History of ESRD on home hemodialysis therapy, POA osteomyelitis per foot x-ray 05/22/2024 Right heel culture growing Enterococcus faecalis, Streptococcus MRSA, Pseudomonas aeruginosa 05/22/2024 Chronic leukocytosis, POA Underlying immunosuppression on outpatient treatment with steroids and Remicade, POA Nonhealing diabetic foot ulcer/heel ulcer with associated deep eschar/necrotic region, being followed by Dr. Jackson as outpatient, POA Anemia of renal disease, POA Underlying history of type 2 diabetes mellitus, POA History of chronic prednisone use as outpatient, POA Uncontrolled Hypertension, POA Hyperlipidemia, POA History of peripheral arterial disease, POA Prior history of angioplasty to right popliteal artery and distal SFA by Dr. Arzate on 01/24/2024, POA History penicillin allergy, POA Noncompliance PLAN: Continue medical-surgical floor Continue telemetry monitoring Continue renal dialysis diet S/p right BKA by Dr. Montes on 05/30/2024 Continue low dose of analgesics as per fiber drier operator Nurse practitioner spoke with Dr. Jackson regards consulted case management for home with the home health for PT and wound care. Orders to be placed under orthopedic surgeon. Consults: Autotransfusionist: Dr Jackson, audio visual project manager DR Crabtree , fiber drier operator DR Mera , surgeon , ID refused , 2nd opinion Dr. Edmonds ; Dr Montes Continue supplemental O2 to keep O2 saturations above 92%, currently satting 96% on 2 L nasal cannula Please titrate down supplemental O2 to keep O2 sats >92%. DC if not needed. IS hourly as tolerated Antibiotics: Vancomycin, IV Merrem IV , IV vancomycin on dialysis days We will transition to p.o. antibiotics on discharge if patient goes home. Pending PT input and recommendations. Blood cultures negative Wound cultures growing Prevotella Melaninogenica, Enterococcus faecalis, Staphylococcus aureus MRSA, Pseudomonas aeruginosa Continue local wound care nonweightbearing Continue to work with physical therapy Continue dialysis3 times a week via PermCath. TTS schedule Avoid NSAIDs renal dose medication, fluid restriction daily weight Continue dual antiplatelet therapy with aspirin and Plavix, continue statin ther apy Continue SSI, basal insulin Continue glucometer checks before meals and at bedtime Continue hypoglycemic protocol Monitor a.m. labs PRN Treatment - Add when necessary meds for nausea, vomiting, pain, constipation, insomnia. DVT/GI prophylaxis- Continue heparin and Protonix at current doses. Full CODE STATUS Plan of action discussed, all questions answered, agreed and understood the information provided. Total PCU time spent greater than 30 minutes. ATTESTATION BY PHYSICIAN I have seen and examined the patient. I reviewed the documentation, medical decision making, and treatment plan as noted by the mid-level provider above. I agree with the findings and plan of care. Florin Joy IV, MD, KATARZYNA B ARCHIVIST ECONOMIC HISTORY Jun 05, 2024 13:20
--- NOTE | 2024-06-05 13:57 | NUR ---
Discharge Planning: Referral sent to [facility] for wound care and PT.
[2024-06-05] MEDS: miDODRine HCL 5 MG TABLET PO ONE (15:16)
[2024-06-05] MEDS: ALBUMIN (HUMAN) 25% 50 ML IV.SOLN. IV ONE (15:40)
--- NOTE | 2024-06-05 16:15 | NUR ---
Discharge Planning: Received call from [facility] . There is no staff to follow this patient, therefore cannot accept. Referral sent to [facility]. Pendng insurance authorization.
[2024-06-05] MEDS ORDERED: DOXYCYCLINE 100MG+NS 250ML 250 ML IV SCH (18:30)
--- NOTE | 2024-06-05 18:35 | PN ---
[facility] PROGRESS NOTE Date Patient Seen: Jun 05, 2024 Time of Visit: 12:30 Supervising Physician: DR. JUANA MORSE Primary Care Physician: Dr Chuck Olmedo MD Outpatient Specialists: Inpatient Consults: Dr Jackson, Dr Oden, Dr Mera, Dr Montes, Dr Edmonds PROBLEM LIST: Acute hypoxic and Hypercapnic respiratory failure not POA Opioid induced respiratory depression Metabolic encephalopathy, not POA Suspected Sleep apnea undiagnosed and untreated. Dislodged PermCath, POA s/p left side chest wall Permacth placement 05/23/24 History of ESRD on home hemodialysis therapy, POA osteomyelitis per foot x-ray 05/22/2024 S/P Rt BKA 05/22/24 Right heel culture growing Enterococcus faecalis, Streptococcus MRSA, Pseudomonas aeruginosa 05/22/2024 Chronic leukocytosis, POA Underlying immunosuppression on outpatient treatment with steroids and Remicade, POA Anemia of renal disease, POA Uncontrolled type 2 diabetes mellitus, POA Uncontrolled Hypertension, POA Hyperlipidemia, POA History of severe peripheral arterial disease, POA Prior history of angioplasty to right popliteal artery and distal SFA by Dr. Arzate on 01/24/2024, POA History penicillin allergy, POA Noncompliance INTERVAL HISTORY: 06/03/2024: At the time of my evaluation, the patient was in his assigned room and sitting up to the bedside chair. He denies any respiratory difficulty or chest pain. Based on documented vital signs, he remains hemodynamically stable. No other complaint. 06/05/24 Patient is a 59 year old gentleman, awake, alert, well oriented, obese who is right BKA status, x ray reviewed denies chest pain or SOB, suspected for sleep apnea for which has been recommended for further evaluation as an outpatient at the pulmonary clinic for breathing studies including sleep study, otherwise no new issues. REVIEW OF SYSTEMS: 12 point review of systems done, all pertinent information addressed PHYSICAL EXAM: GENERAL: Lethargic GCS of 13 HEENT: Sclera non icteric, moist mucosa NECK: Short no JVD, trachea midline LUNGS: Coarse crackles sounds bilaterally. No wheezes HEART: Regular rate and rhythm. Normal S1 and S2, without murmurs ABD: Abdomen soft, nontender. Bowel sounds present EXT: No clubbing cyanosis or edema dressing to right BKA clean dry and intact NEURO: GCS of 13 no focal weakness, when he is awake oriented x3. Vital Signs (last 8hr) Date Time Temp Pulse Resp B/P (MAP) Pulse Ox O2 Delivery O2 Flow Rate FiO2 06/05/24 17:38 97.7 85 16 127/63 Room Air 06/05/24 17:15 97.7 86 16 108/53 Room Air 06/05/24 17:00 87 16 110/49 Room Air 06/05/24 16:45 85 16 107/59 Room Air 06/05/24 16:30 84 16 107/57 Room Air 06/05/24 16:15 86 16 113/57 Room Air 06/05/24 16:00 97.3 86 18 97/50 92 Room Air 06/05/24 16:00 85 14 107/55 Room Air 06/05/24 15:45 89 16 92/57 Room Air 06/05/24 15:30 87 16 93/54 Room Air 06/05/24 15:15 84 16 96/53 Room Air 06/05/24 15:00 86 16 100/55 Room Air 06/05/24 14:50 86 16 97/55 Room Air 06/05/24 14:45 87 18 92/46 Room Air 06/05/24 14:30 84 16 117/63 Room Air 06/05/24 14:22 97.5 85 16 114/57 Room Air 06/05/24 14:00 97.5 84 16 111/60 Room Air 06/05/24 12:00 97.9 79 18 131/64 97 Room Air LABS: Hematology Labs: Test 06/05/24 04:57 Range/Units White Blood Count 9.0 4.8-10.8 K/uL Red Blood Count 2.89 L 4.50-6.20 MIL/uL Hemoglobin 8.7 L 14.0-18.0 g/dL Hematocrit 27.0 L 42-54 % Mean Corpuscular Volume 93.4 79-99 fL Mean Corpuscular Hemoglobin 30.1 27.0-33.0 pg Mean Corpuscular Hemoglobin Concent 32.2 32.0-36.0 g/dL Red Cell Distribution Width 14.7 11.0-15.5 % Platelet Count 174 130-400 K/uL Mean Platelet Volume 10.7 H 7.5-10.5 fL Immature Granulocyte % (Auto) 1.1 H 0-1 % Neutrophils (%) (Auto) 77.0 40.0-77.0 % Lymphocytes (%) (Auto) 16.2 L 21.0-51.0 % Monocytes (%) (Auto) 5.0 3.0-13.0 % Eosinophils (%) (Auto) 0.6 0.0-8.0 % Basophils (%) (Auto) 0.1 0.0-5.0 % Neutrophils # (Auto) 6.9 1.8-7.7 K/uL Lymphocytes # (Auto) 1.5 1.0-4.8 K/uL Monocytes # (Auto) 0.5 0.1-1.0 K/uL Eosinophils # (Auto) 0.05 0.00-0.70 K/uL Basophils # (Auto) 0.01 0.00-0.20 K/uL Absolute Immature Granulocyte (auto 0.10 0-1 K/uL Nucleated Red Blood Cells 0.0 0.0-0.19 % Chemistry Labs: Test 06/05/24 10:45 06/05/24 04:57 06/04/24 07:39 Range/Units Whole Blood Glucose 141 H 70-110 MG/DL Sodium Level 138 136-145 mmol/L Potassium Level 4.5 3.5-5.1 mmol/L Chloride Level 100 L 101-111 mmol/L Carbon Dioxide Level 29 21-32 mmol/L Blood Urea Nitrogen 70 H 7-18 mg/dL Creatinine 10.4 *H 0.5-1.3 mg/dL Glomerular Filtration Rate Calc 5 >90 mL/min Random Glucose 200 H 70-105 mg/dL Total Calcium 7.3 L 8.5-10.1 mg/dL Magnesium Level 1.90 1.80-2.40 mg/dL Total Bilirubin 0.6 0.2-1.0 mg/dL Aspartate Amino Transf (AST/SGOT) 17 10-37 U/L Alanine Aminotransferase (ALT/SGPT) < 6 L 12-78 U/L Alkaline Phosphatase 67 50-136 U/L Total Protein 6.2 6.0-8.3 g/dL Albumin 2.3 L 3.5-5.0 g/dL DIAGNOSTICS / RADIOLOGY RESULTS: [ ] PLAN 06/03/2024: For now, we are going to continue current management for the patient. We will supplement oxygenation as necessary. We will monitor for any arrhythmias or changes of vital signs. We will continue renal replacement therapy per the urgent care. We will continue to provide general supportive care, GI and DVT prophylaxis. Further orders per attending MD and hospital course. 06/05/2024 Continue optimizing his medical management recommended follow up as an outpatient at the pulmonary clinic in 2 -3 weeks for sleep studies NEURO: Minimize central acting medications as possible. Maintain fall precautions, adequate lighting during the day PULMONARY: Supplemental 02 as needed. Maintain aspiration precautions at all times CARDIOVASCULAR: Follow hemodynamics. Vital signs per facility protocol GI & NUTRITION: Continue with nutritional support. Continue stool softeners and laxatives as needed. KIDNEYS & ELECTROLYTES: Strict monitoring of intake, output and overall fluid balance. Avoid nephrotoxic medications to the extent possible. Medications to be dosed according to renal function. Monitor electrolytes and replace as needed ENDOCRINE: Maintain blood glucose between 100-180 at all times. Hypoglycemia protocol in place INFECTIOUS DISEASE: Trend temperature, WBC and procalcitonin level Follow cultures, deescalate antibiotics as soon as possible. Panculture if new onset fever ONCOLOGY/HEMATOLOGY/COAGULATION: Monitor for s/s of bleeding Monitor hemoglobin, coagulation studies as needed SKIN: Pressure ulcer prevention per facility protocol Specialty mattress ORTHO/REHAB: Continue PT/OT Prophylaxis: Continue GI and DVT prophylaxis Code Status: Full Resuscitation Disposition: TBD ATTESTATION BY PHYSICIAN Documentation assistance provided by a scribe, information recorded by the scribe was done at my direction and has been reviewed and validated by me." JUANA MORSE MD I personally scribed for JUANA MORSE MD ([email or web address]) on 06/05/24 at 18:35. Electronically submitted by Morena Alfred ([email or web address]). JUANA MORSE MD Jun 05, 2024 18:35
--- NOTE | 2024-06-05 21:10 | NUR ---
Nursing Note Pt asked for pain medication but when offered pt stated he didn't want the tylenol he wanted the "IV medication". I informed him he didn't have it on his profile just the tylenol before I could say anything else he stated "I don't want anything" "The IV one didn't sedate me it was because I had dialysis and I was tired that day" then he preceded to tell me he would speak with the doctor in the morning for me to not worry about it. I told him I could call the dean of admissions but he told me not to worry about it.
[2024-06-05] MEDS: DOXYCYCLINE 100MG+NS 250ML 250 ML IV SCH (23:54)
[2024-06-06] VITALS (9 sets, daily range): BP systolic 131–161; BP diastolic 66–88; PULSE 84–103; RESP 18–20; TEMP 97.7–98; O2SAT 93–98
--- NOTE | 2024-06-06 02:14 | NUR ---
Nursing Note Pt dressing on R BKA coming off. Informed pt I would redress the stump but pt declined and stated for me to just tape the dressing to "make it stay" he stated the dressing continues to fall off and he wants it to just be taped to hold for the rest of the night.
[2024-06-06 04:52] LABS: BASOPHILS # (AUTO) 0.02 K/uL (0.00-0.20); BASOPHILS % (AUTO) 0.2 % (0.0-5.0); EOSINOPHILS # (AUTO) 0.03 K/uL (0.00-0.70); EOSINOPHILS % (AUTO) 0.3 % (0.0-8.0); HEMATOCRIT 24.4 % (42-54); IMMATURE GRANULOCYTE ABSOLUTE 0.18 K/uL (0-1); LYMPHOCYTES # (AUTO) 1.2 K/uL (1.0-4.8); LYMPHOCYTES % (AUTO) 12.5 % (21.0-51.0); MEAN CORPUSCULAR HEMOGLOBIN 29.8 pg (27.0-33.0); MEAN CORPUSCULAR HGB CONC 33.6 g/dL (32.0-36.0); MEAN CORPUSCULAR VOLUME 88.7 fL (79-99); MONOCYTES # (AUTO) 0.3 K/uL (0.1-1.0); MONOCYTES % (AUTO) 3.5 % (3.0-13.0); NEUTROPHILS # (AUTO) 7.5 K/uL (1.8-7.7); NEUTROPHILS % (AUTO) 81.5 % (40.0-77.0); PLATELET COUNT (AUTO) 202 K/uL (130-400); RED BLOOD CELL COUNT(AUTO) 2.75 MIL/uL (4.50-6.20); RED CELL DISTRIBUTION WIDTH 14.6 % (11.0-15.5); WHITE BLOOD COUNT (AUTO) 9.2 K/uL (4.8-10.8)
[2024-06-06 05:04] LABS: ALBUMIN 2.4 g/dL (3.5-5.0); ASPARTATE AMINOTRANSFERASE 10 U/L (10-37); BILIRUBIN,TOTAL 0.7 mg/dL (0.2-1.0); CARBON DIOXIDE 32 mmol/L (21-32); CHLORIDE 98 mmol/L (101-111); CREATININE 6.4 mg/dL (0.5-1.3); GLOMERULAR FILTR. RATE CALC 9 mL/min (>90); GLUCOSE,RANDOM 178 mg/dL (70-105); POTASSIUM 3.9 mmol/L (3.5-5.1); SODIUM SERUM 137 mmol/L (136-145); TOTAL PROTEIN, SERUM 5.9 g/dL (6.0-8.3); UREA NITROGEN, BLOOD 37 mg/dL (7-18)
[2024-06-06 05:19] LABS: ALANINE AMINOTRANSFERASE < 6 U/L (12-78)
[2024-06-06] MEDS ORDERED: CLOP-31 PO (12:53)
[2024-06-06] MEDS ORDERED: MONT-46 PO (12:53)
[2024-06-06] MEDS ORDERED: INSLAN SQ (12:53)
[2024-06-06] MEDS ORDERED: ATOR40TA69 PO (12:53)
[2024-06-06] MEDS ORDERED: ASPI-1005 PO (12:53)
[2024-06-06] MEDS ORDERED: LINE600T11 PO (12:53)
[2024-06-06] MEDS ORDERED: BALS60OI TP (12:53)
[2024-06-06] MEDS ORDERED: NIFE-40 PO (12:53)
[2024-06-06] MEDS ORDERED: BENZ-226 PO (12:53)
[2024-06-06] MEDS ORDERED: LEVO-70 PO (12:56)
--- NOTE | 2024-06-06 13:08 | DS ---
Discharge Summary Hospital Course Summary: DATE OF ADMISSION:[05/22/2024] DATE OF DISCHARGE:[06/06/2024] DISPOSITION:[Home with home health] CONDITION:[Medically cleared] CONSULTANTS:[Dr. Jackson, Dr. Montes, , civil design technician, tailor helper] FOLLOW UP APPOINTMENTS:[PCP [address] Horne within one week. Surgeon within one week. Kiln Door Builder 1 to 2 weeks. Sales Floor Manager as scheduled for dialysis] PROCEDURES:[s/p PermCath placement 05/23/2024 by IR, Right BKA with dr Jackson] IMAGING: report attached to summary MICROBIOLOGY: report attached to summary ACTIVITY:[Requires two people assist] HOME MEDICATIONS: see [facility] NEW MEDICATIONS:[Aspirin 81 mg p.o. daily 60 tablets, atorvastatin 40 mg p.o. at bedtime 60 tablets, Venelex ointment b.i.d., benzonatate 100 mg p.o. q.8 hours p.r.n. for the cough. Plavix 75 mg p.o. daily. Insulin glargine 15 units at bedtime. Levofloxacin 500 mg p.o. daily. Zyvox 600 mg p.o. b.i.d. 14 days. Montelukast 10 mg p.o. at bedtime. Nifedipine 60 mg p.o. daily] EMERGENCY INSTRUCTIONS: The patient was instructed to present to the nearest Emergency departmentr or call 911 once their symptoms will return or worsen Case Management Rn(s): 59-year-old male with underlying history of hypertension, hyperlipidemia, peripheral arterial disease, type 2 diabetes mellitus, ESRD on chronic home hemodialysis of Wednesday, Wednesday, Wednesday, history of chronic diabetic foot ulcer of the right heel being followed by Podiatry as outpatient, psoriasis on chronic outpatient steroids and Remicade infusion who presented to the ER after his PermCath for hemodialysis was dislodged. Dislodgement happened on Wednesday and patient decided to come to the ER today for further evaluation. Patient states that similar episode has happened about six months ago and patient had PermCath placed by IR. history of chronic diabetic foot/ heel ulcer being followed by Dr. Jackson as outpatient. He was seen by Dr. Jackson recently and has been taking oral outpatient antibiotics with doxycycline. He is supposed to see Dr. Mata with Infectious Disease on 05/26/2024 given persistent nonresolving infection. Throughout the hospitalization patient underwent PermCath placement 05/23/2024 by IR and right BKA with a 05/30/2024. Blood culture after five days was negative. Right heel culture showed prevotella Melaniinogenica, Enterococcus faecalis, MRSA, Pseudomonas aeruginosa. As per Gabe patient to be discharged home on Zyvox and Levaquin. Today patient was cleared by all the consultants to be discharged home follow up with tailor helper as scheduled for dialysis. Follow up with ID the patient weakly follows outpatient to continue/monitor antibiotics POA. Follow-up with PCP in 2 to 3 days. Follow up with Dr. Jackson within one week. Follow up with the surgeon within one week. Patient to be discharged once case management we will be able to find home health that will provide patient with the wound care and physical therapy. Procedure(s): REVIEW OF SYSTEMS CONSTITUTIONAL: Denies any problems NEUROLOGICAL: Denies headache, amaurosis fugax, motor weakness, sensory deficit, vertigo/spinning sensation, gait abnormalities, or tremors. ENT: No hearing loss, otalgia, otorrhea, rhinitis, rhinorrhea, hoarseness, or sore throat. CARDIOVASCULAR: Denies any exertional angina, dyspnea on exertion, orthopnea, paroxysmal nocturnal dyspnea, palpitations, life-threatening arrhythmias, claudication. PULMONARY: Denies any shortness of breath, cough, phlegm/sputum, hemoptysis, pleuritic chest pain. SLEEP: Denies morning headaches, daytime somnolence or napping. Denies difficulty falling asleep, staying asleep, waking from sleep. Denies knowledge of snoring. GASTROINTESTINAL: Denies any type of dysphagia to either liquids or solids. Denies nausea, vomiting, pyrosis, early satiety, abdominal pain, diarrhea, constipation, or changes in stool consistency or caliber. Denies coffee-ground emesis, hematemesis, hematochezia, or melanotic stools. GENITOURINARY: Denies frequency, urgency, nocturia, hematuria or incontinence (Storage/Irritative symptoms.) Low urinary stream, straining to void, urinary intermittency or hesitancy, splitting of the voiding stream, terminal dribbling. ENDOCRINOLOGIC: Denies polyuria, polydipsia, polyphagia or heat/cold intolerances. HEMATOLOGIC: Denies thrombophilia/previous clots, or coagulopathy/bleeding disorders. ONCOLOGIC: Denies personal history of malignancy. DERMATOLOGIC: ulcer involving the right foot heel PSYCHIATRIC: Denies any suicidal or homicidal ideation. Denies hallucinations. PHYSICAL EXAM GENERAL APPEARANCE: The patient is awake, alert, and oriented, in no acute cardiopulmonary distress. NEUROLOGICAL: Cranial nerves II-XII grossly intact. Motor is 5/5 in bilateral upper and lower extremities proximal to distal. No sensory deficits. HEENT: Face is symmetric. Pupils are equal and reactive. Extraocular movements are intact. NECK: Supple. No JVD. No thyromegaly. No submental, submandibular, pre-/ postauricular, occipital or supraclavicular lymphadenopathy. CHEST: Normal chest expansion. No Telemetry. LUNGS: Absence of any rales, rhonchi or any wheezing. CARDIOVASCULAR: Regular. S1 and S2 normal. No appreciable rubs, murmurs or gallops. ABDOMEN: Soft, nontender, and nondistended. There is no rebound, voluntary guarding, or rigidity. : Deferred. No Hutson. EXTREMITIES: Right BKA SKIN: No skin breakdown. Assessment/Plan: ASSESSMENT: Dislodged PermCath, POA -resolved s/p PermCath placement 05/23/2024 by IR History of ESRD on home hemodialysis therapy, POA osteomyelitis per foot x-ray 05/22/2024 S/p Right BKA 05/30/2024 Right heel culture growing Enterococcus faecalis, Streptococcus MRSA, Pseudomonas aeruginosa 05/22/2024 Chronic leukocytosis, POA Underlying immunosuppression on outpatient treatment with steroids and Remicade, POA Nonhealing diabetic foot ulcer/heel ulcer with associated deep eschar/necrotic region, being followed by Dr. Jackson as outpatient, POA Anemia of renal disease, POA Underlying history of type 2 diabetes mellitus, POA History of chronic prednisone use as outpatient, POA Uncontrolled Hypertension, POA Hyperlipidemia, POA History of peripheral arterial disease, POA Prior history of angioplasty to right popliteal artery and distal SFA by Dr. Arzate on 01/24/2024, POA History penicillin allergy, POA Noncompliance Home Medications: Reported Medications Hum Insulin NPH/Reg Insulin Hm (Humulin 70/30 Kwikpen) 100 Unit/Ml (70-30) Insuln.pen, 30 UNITS SQ DAILY 01/14/24 Nifedipine (Nifedipine ER) 30 Mg Tablet.er, 60 MG PO BID 01/14/24 Prednisone (Prednisone) 5 Mg Tablet, 5 MG PO BID, TAB 01/14/24 Discontinued Reported Medications Atorvastatin Calcium (Atorvastatin Calcium) 20 Mg Tablet, 20 TAB PO DAILY 01/14/24 Time spent arranging discharge: 31-60 minutes ATTESTATION BY PHYSICIAN I have seen and examined the patient. I reviewed the documentation, medical decision making, and treatment plan as noted by the mid-level provider above. I agree with the findings and plan of care. Florin Joy IV, MD, KATARZYNA B COMPUTED TOMOGRAPHY SCANNER OPERATOR Jun 06, 2024 13:08
--- NOTE | 2024-06-06 13:23 | PN ---
[facility] PROGRESS NOTE Date Patient Seen: Jun 06, 2024 Time of Visit: 13:21 Supervising Physician: Dr. Moy Foote Primary Care Physician: Dr Chuck Olmedo MD Outpatient Specialists: Inpatient Consults: Dr Jackson, Dr Oden, Dr Mera, Dr Montes, Dr Edmonds PROBLEM LIST: Acute hypoxic and Hypercapnic respiratory failure not POA Opioid induced respiratory depression Metabolic encephalopathy, not POA Suspected Sleep apnea undiagnosed and untreated. Dislodged PermCath, POA s/p left side chest wall Permacth placement 05/23/24 History of ESRD on home hemodialysis therapy, POA osteomyelitis per foot x-ray 05/22/2024 S/P Rt BKA 05/22/24 Right heel culture growing Enterococcus faecalis, Streptococcus MRSA, Pseudomonas aeruginosa 05/22/2024 Chronic leukocytosis, POA Underlying immunosuppression on outpatient treatment with steroids and Remicade, POA Anemia of renal disease, POA Uncontrolled type 2 diabetes mellitus, POA Uncontrolled Hypertension, POA Hyperlipidemia, POA History of severe peripheral arterial disease, POA Prior history of angioplasty to right popliteal artery and distal SFA by Dr. Arzate on 01/24/2024, POA History penicillin allergy, POA Noncompliance INTERVAL HISTORY: Patient evaluated at bedside, he is currently on room air, denies any pain at the site of the BKA. Patient's white count today is 9.2 and hemoglobin is 8.2. In conversation with the primary team he is likely to be discharged home today, patient is declining SNF. He continues on doxy vanco and meropenem during his admission, from a pulmonary perspective the patient was cleared for discharge and was advised of the signs and symptoms that would dictate and necessary returned to the ED. patient suggested to follow up with the [facility] in 2-3 weeks to ensure resolution of his symptoms. REVIEW OF SYSTEMS: 12 point review of systems done, all pertinent information addressed PHYSICAL EXAM: GENERAL: Lethargic GCS of 13 HEENT: Sclera non icteric, moist mucosa NECK: Short no JVD, trachea midline LUNGS: Coarse crackles sounds bilaterally. No wheezes HEART: Regular rate and rhythm. Normal S1 and S2, without murmurs ABD: Abdomen soft, nontender. Bowel sounds present EXT: No clubbing cyanosis or edema dressing to right BKA clean dry and intact NEURO: GCS of 13 no focal weakness, when he is awake oriented x3. Vital Signs (last 8hr) Date Time Temp Pulse Resp B/P (MAP) Pulse Ox O2 Delivery O2 Flow Rate FiO2 06/06/24 12:00 97.7 87 18 134/68 93 06/06/24 08:11 84 18 N/A Room Air 21 06/06/24 08:00 98.1 103 18 131/88 LABS: Hematology Labs: Test 06/06/24 04:30 Range/Units White Blood Count 9.2 4.8-10.8 K/uL Red Blood Count 2.75 L 4.50-6.20 MIL/uL Hemoglobin 8.2 L 14.0-18.0 g/dL Hematocrit 24.4 L 42-54 % Mean Corpuscular Volume 88.7 79-99 fL Mean Corpuscular Hemoglobin 29.8 27.0-33.0 pg Mean Corpuscular Hemoglobin Concent 33.6 32.0-36.0 g/dL Red Cell Distribution Width 14.6 11.0-15.5 % Platelet Count 202 130-400 K/uL Mean Platelet Volume 11.4 H 7.5-10.5 fL Immature Granulocyte % (Auto) 2.0 H 0-1 % Neutrophils (%) (Auto) 81.5 H 40.0-77.0 % Lymphocytes (%) (Auto) 12.5 L 21.0-51.0 % Monocytes (%) (Auto) 3.5 3.0-13.0 % Eosinophils (%) (Auto) 0.3 0.0-8.0 % Basophils (%) (Auto) 0.2 0.0-5.0 % Neutrophils # (Auto) 7.5 1.8-7.7 K/uL Lymphocytes # (Auto) 1.2 1.0-4.8 K/uL Monocytes # (Auto) 0.3 0.1-1.0 K/uL Eosinophils # (Auto) 0.03 0.00-0.70 K/uL Basophils # (Auto) 0.02 0.00-0.20 K/uL Absolute Immature Granulocyte (auto 0.18 0-1 K/uL Nucleated Red Blood Cells 0.0 0.0-0.19 % Chemistry Labs: Test 06/06/24 10:49 06/06/24 04:30 Range/Units Whole Blood Glucose 166 H 70-110 MG/DL Sodium Level 137 136-145 mmol/L Potassium Level 3.9 3.5-5.1 mmol/L Chloride Level 98 L 101-111 mmol/L Carbon Dioxide Level 32 21-32 mmol/L Blood Urea Nitrogen 37 #H 7-18 mg/dL Creatinine 6.4 H 0.5-1.3 mg/dL Glomerular Filtration Rate Calc 9 >90 mL/min Random Glucose 178 H 70-105 mg/dL Total Calcium 7.3 L 8.5-10.1 mg/dL Magnesium Level 1.70 L 1.80-2.40 mg/dL Total Bilirubin 0.7 0.2-1.0 mg/dL Aspartate Amino Transf (AST/SGOT) 10 10-37 U/L Alanine Aminotransferase (ALT/SGPT) < 6 L 12-78 U/L Alkaline Phosphatase 98 50-136 U/L Total Protein 5.9 L 6.0-8.3 g/dL Albumin 2.4 L 3.5-5.0 g/dL DIAGNOSTICS / RADIOLOGY RESULTS: [ ] PLAN 06/03/2024: For now, we are going to continue current management for the patient. We will supplement oxygenation as necessary. We will monitor for any arrhythmias or changes of vital signs. We will continue renal replacement therapy per the band saw filer. We will continue to provide general supportive care, GI and DVT prophylaxis. Further orders per attending MD and hospital course. 06/05/2024 Continue optimizing his medical management recommended follow up as an outpatient at the pulmonary clinic in 2 -3 weeks for sleep studies NEURO: Minimize central acting medications as possible. Maintain fall precautions, adequate lighting during the day PULMONARY: Supplemental 02 as needed. Maintain aspiration precautions at all times CARDIOVASCULAR: Follow hemodynamics. Vital signs per facility protocol GI & NUTRITION: Continue with nutritional support. Continue stool softeners and laxatives as needed. KIDNEYS & ELECTROLYTES: Strict monitoring of intake, output and overall fluid balance. Avoid nephrotoxic medications to the extent possible. Medications to be dosed according to renal function. Monitor electrolytes and replace as needed ENDOCRINE: Maintain blood glucose between 100-180 at all times. Hypoglycemia protocol in place INFECTIOUS DISEASE: Trend temperature, WBC and procalcitonin level Follow cultures, deescalate antibiotics as soon as possible. Panculture if new onset fever ONCOLOGY/HEMATOLOGY/COAGULATION: Monitor for s/s of bleeding Monitor hemoglobin, coagulation studies as needed SKIN: Pressure ulcer prevention per facility protocol Specialty mattress ORTHO/REHAB: Continue PT/OT Prophylaxis: Continue GI and DVT prophylaxis Code Status: Full Resuscitation Disposition: ERICAD LINO LOZOYA Jun 06, 2024 13:23
--- NOTE | 2024-06-06 13:27 | NUR ---
[facility] Consult: Patient assessed by wound healing team. See wound assessment. Assessment and recommendations provided to primary nurse. Education provided. Addendum: 06/07/24 at 1614 by JONATHAN OVIEDO RN RN/ Amended: Links added.
--- NOTE | 2024-06-06 13:43 | NUR ---
Discharge Planning: Received call from [facility] saying they are unable to accept patient because of his address. Lives too far from [place]. Referral sent to [facility]. Pending insurance authorization. Patient updated.
--- NOTE | 2024-06-06 14:38 | PN ---
PROGRESS NOTE Date of Service: Jun 06, 2024 Time of Service: 14:36 SUBJECTIVE: Last HD treatment was yesterday. Tolerated session. No new concerns reported in the last 24hours. Denies fever chills and pain. Examined at bedside. REVIEW OF SYSTEMS CONSTITUTIONAL: Denies fever, chills, or fatigue. HEAD/FACE: No signs of trauma. EENT: Denies eye pain, blurred vision, double vision, or light sensitivity. RESPIRATORY: Denies shortness of breath, cough, wheezing CARDIOVASCULAR: Denies chest pain, palpitation, syncope peripheral arterial sclerosis. GASTROINTESTINAL/ABDOMINAL: Denies abdominal pain, constipation, diarrhea, nausea or vomiting GENITOURINARY: Denies dysuria or hematuria. 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 INTEGUMENTARY: Gangrenous ulcer to the posterior aspect of the right foot and heel. NEUROLOGICAL/PSYCH: Denies anxiety, depression, heat or cold intolerance. PHYSICAL EXAM EYES: Anicteric. Pupils equal and reactive. HENT: No oral thrush seen, moist Oral mucosa NECK: Supple, no JVD or thyromegaly. LUNGS: Good air entry. No rales, no rhonchi. CARDIOVASCULAR: S1, S2 regular. No murmur heard. ABDOMEN: Soft, non tender, bowel sounds present, no organomegaly CENTRAL NERVOUS SYSTEM: Awake, alert, oriented x 3. No focal deficits. SKIN: Ulcer with gangrene to the right foot stump. LYMPHATICS: No peripheral lymphadenopathy MUSCULOSKELETAL: Edema erythema and swelling of the right stump with a history of Syme's amputation. EXTREMITIES: Gangrenous ulcer to the posterior and plantar aspect of the right foot stump. BACK: No deformity, no pressure ulcer. GENITOURINARY: No dysuria or hematuria Vital Signs (last 8hr) Date Time Temp Pulse Resp B/P (MAP) Pulse Ox O2 Delivery O2 Flow Rate FiO2 06/06/24 12:00 97.7 87 18 134/68 93 06/06/24 08:11 84 18 N/A Room Air 21 06/06/24 08:00 98.1 103 18 131/88 LABS: Laboratory: Test 06/06/24 10:49 06/06/24 04:30 06/05/24 04:57 Range/Units Whole Blood Glucose 166 H 70-110 MG/DL White Blood Count 9.2 4.8-10.8 K/uL Red Blood Count 2.75 L 4.50-6.20 MIL/uL Hemoglobin 8.2 L 14.0-18.0 g/dL Hematocrit 24.4 L 42-54 % Mean Corpuscular Volume 88.7 79-99 fL Mean Corpuscular Hemoglobin 29.8 27.0-33.0 pg Mean Corpuscular Hemoglobin Concent 33.6 32.0-36.0 g/dL Red Cell Distribution Width 14.6 11.0-15.5 % Platelet Count 202 130-400 K/uL Mean Platelet Volume 11.4 H 7.5-10.5 fL Immature Granulocyte % (Auto) 2.0 H 0-1 % Neutrophils (%) (Auto) 81.5 H 40.0-77.0 % Lymphocytes (%) (Auto) 12.5 L 21.0-51.0 % Monocytes (%) (Auto) 3.5 3.0-13.0 % Eosinophils (%) (Auto) 0.3 0.0-8.0 % Basophils (%) (Auto) 0.2 0.0-5.0 % Neutrophils # (Auto) 7.5 1.8-7.7 K/uL Lymphocytes # (Auto) 1.2 1.0-4.8 K/uL Monocytes # (Auto) 0.3 0.1-1.0 K/uL Eosinophils # (Auto) 0.03 0.00-0.70 K/uL Basophils # (Auto) 0.02 0.00-0.20 K/uL Absolute Immature Granulocyte (auto 0.18 0-1 K/uL Nucleated Red Blood Cells 0.0 0.0-0.19 % Sodium Level 137 136-145 mmol/L Potassium Level 3.9 3.5-5.1 mmol/L Chloride Level 98 L 101-111 mmol/L Carbon Dioxide Level 32 21-32 mmol/L Blood Urea Nitrogen 37 #H 7-18 mg/dL Creatinine 6.4 H 0.5-1.3 mg/dL Glomerular Filtration Rate Calc 9 >90 mL/min Random Glucose 178 H 70-105 mg/dL Total Calcium 7.3 L 8.5-10.1 mg/dL Magnesium Level 1.70 L 1.80-2.40 mg/dL Total Bilirubin 0.7 0.2-1.0 mg/dL Aspartate Amino Transf (AST/SGOT) 10 10-37 U/L Alanine Aminotransferase (ALT/SGPT) < 6 L 12-78 U/L Alkaline Phosphatase 98 50-136 U/L Total Protein 5.9 L 6.0-8.3 g/dL Albumin 2.4 L 3.5-5.0 g/dL Vancomycin Level Trough 21.5 H 10.0-20.0 UG/ML DIAGNOSTICS / RADIOLOGY: COMMERCIAL SINGER PROCEDURE REQUEST REASON: DISLODGED PERMACATH. COMPARISON: None TECHNIQUE: Fluoroscopic guidance with placement of left internal jugular-right atrial tunneled Duramax dialysis catheter. FINDINGS: The right internal jugular vein is occluded at the junction with the superior vena cava and right subclavian vein. Left internal jugular vein is patent. PROCEDURE: Informed consent obtained the patient following explanation of risk, benefits, complications. Timeout performed by nursing staff. Continuous monitoring was performed of the patient during the procedure I nursing personnel including cardiovascular status, oxygenation, respiration. Patient received intravenous titrated doses of Versed and fentanyl during the procedure administered by nursing personnel. Right neck and left neck were prepped and draped in sterile fashion. Ultrasound of the right neck demonstrates large amount thrombus within the proximal internal jugular vein. Following local anesthesia with 1% lidocaine, access gained into the right internal jugular vein under direct ultrasound guidance. Guidewire could not be passed beyond the area of obstruction at the junction with the SVC. This site was abandoned and attention was made to the left internal jugular venous access site. Following local anesthesia with 1% lidocaine subcutaneous, needle access into the left internal jugular vein obtained with ultrasound guidance. Fine guidewire placement, microcatheter access was passed over the guidewire. J-wire was then passed through the sheath in past the right atrium into the inferior vena cava. Fashion dilatation performed, tunneled Duramax catheter 32 cm in length, was passed over guidewire and the tip of the catheter positioned within the right atrium. Both ports were flushed, aspirated, flushed, heparinized, capped, clamped. Catheter secured to the skin with retention suture and sterile dressing. Patient tolerated procedure well without evidence of comp occasions. Total fluoroscopic time: 3.7 minutes. Estimated blood loss: Less than 8 ml. IMPRESSION: Placement of 32 cm tunneled Duramax dialysis catheter with the tip positioned within the right atrium. Access from the left internal jugular vein. Catheter is ready for immediate use. ASSESSMENT: ESRD DM2 with nephropathy HTN with renal manifestation Hyperkalemia Anemia of CKD Osteomyelitis PLAN: No acute HD today pending disposition No change to POC Monitor Electrolytes Renal Diet CHEPE as per protocol with HD treatments Continue home medications LALITHA KOCH Jun 06, 2024 14:38
--- NOTE | 2024-06-06 16:35 | NUR ---
Discharge Update: [facility] is not in network, neither is [facility]. Referral sent to [facility]. Received e-mail from Luis Eduardo Pacheco at [facility]. Not in network with patient's insurance.
--- NOTE | 2024-06-06 16:42 | NUR ---
Discharge Planning: Referral sent to [facility]. Received call from [facility] saying that they are not in network with insurance.
[2024-06-07] VITALS (19 sets, daily range): BP systolic 132–164; BP diastolic 70–92; PULSE 83–94; RESP 16–20; TEMP 97.4–97.9; O2SAT 94–99
[2024-06-07 04:45] LABS: BASOPHILS # (AUTO) 0.05 K/uL (0.00-0.20); BASOPHILS % (AUTO) 0.5 % (0.0-5.0); EOSINOPHILS # (AUTO) 0.07 K/uL (0.00-0.70); EOSINOPHILS % (AUTO) 0.7 % (0.0-8.0); HEMATOCRIT 27.5 % (42-54); IMMATURE GRANULOCYTE ABSOLUTE 0.52 K/uL (0-1); LYMPHOCYTES # (AUTO) 1.7 K/uL (1.0-4.8); LYMPHOCYTES % (AUTO) 16.7 % (21.0-51.0); MEAN CORPUSCULAR HEMOGLOBIN 29.5 pg (27.0-33.0); MEAN CORPUSCULAR HGB CONC 32.4 g/dL (32.0-36.0); MEAN CORPUSCULAR VOLUME 91.1 fL (79-99); MONOCYTES # (AUTO) 0.5 K/uL (0.1-1.0); MONOCYTES % (AUTO) 5.1 % (3.0-13.0); NEUTROPHILS # (AUTO) 7.1 K/uL (1.8-7.7); NEUTROPHILS % (AUTO) 71.8 % (40.0-77.0); PLATELET COUNT (AUTO) 221 K/uL (130-400); RED BLOOD CELL COUNT(AUTO) 3.02 MIL/uL (4.50-6.20); RED CELL DISTRIBUTION WIDTH 14.6 % (11.0-15.5); WHITE BLOOD COUNT (AUTO) 9.9 K/uL (4.8-10.8)
[2024-06-07 04:58] LABS: ALBUMIN 2.4 g/dL (3.5-5.0); ASPARTATE AMINOTRANSFERASE 16 U/L (10-37); BILIRUBIN,TOTAL 0.6 mg/dL (0.2-1.0); CARBON DIOXIDE 30 mmol/L (21-32); CHLORIDE 99 mmol/L (101-111); CREATININE 7.8 mg/dL (0.5-1.3); GLOMERULAR FILTR. RATE CALC 7 mL/min (>90); GLUCOSE,RANDOM 234 mg/dL (70-105); POTASSIUM 4.3 mmol/L (3.5-5.1); SODIUM SERUM 136 mmol/L (136-145); TOTAL PROTEIN, SERUM 6.1 g/dL (6.0-8.3); UREA NITROGEN, BLOOD 52 mg/dL (7-18)
[2024-06-07 05:10] LABS: ALANINE AMINOTRANSFERASE < 6 U/L (12-78)
--- NOTE | 2024-06-07 05:30 | NUR ---
Nursing Note Pt refused to have Blood sugar checked when BUNDLE PERSON attempted to check and wanted to sign refusal. Pt did sign refusal form when I took it to him.
--- NOTE | 2024-06-07 07:15 | NUR ---
RECEIVED PATIENT WITH NO IV ACCESS. PATIENT VERBALIZED REFUSAL TO PIV. STATED HE DOES NOT NEED IT. EDUCATED PATIENT ON THE IMPORTANCE OF HAVING IV ACCESS. PATIENT STATED HE DOES NOT CARE.
--- NOTE | 2024-06-07 09:51 | NUR ---
DID NOT GIVE MORNING MEDICATION DUE TO PATIENT BEING IN DIALYSIS.
--- NOTE | 2024-06-07 10:00 | NUR ---
DID NOT GIVE IV ANTIBIOTIC DUE TO PATIENT BEING IN DIALYSIS.
--- NOTE | 2024-06-07 11:15 | DS ---
Discharge Summary Hospital Course Summary: DATE OF ADMISSION:[05/22/2024] DATE OF DISCHARGE:[06/07/2024] DISPOSITION:[Home with [facility]] CONDITION:[Medically cleared] CONSULTANTS:[Dr. Jackson, Dr. Montes, , recessing machine operator, ict support technicians] FOLLOW UP APPOINTMENTS:[PCP [address] Horne within one week. Surgeon within one week. Chief Human Resources Officer 1 to 2 weeks. Director Of Accreditation as scheduled for dialysis] PROCEDURES:[s/p PermCath placement 05/23/2024 by IR, Right BKA with dr Jackson] IMAGING: report attached to summary MICROBIOLOGY: report attached to summary ACTIVITY:[Requires two people assist] HOME MEDICATIONS: see [facility] NEW MEDICATIONS:[Aspirin 81 mg p.o. daily 60 tablets, atorvastatin 40 mg p.o. at bedtime 60 tablets, Venelex ointment b.i.d., benzonatate 100 mg p.o. q.8 hours p.r.n. for the cough. Plavix 75 mg p.o. daily. Insulin glargine 15 units at bedtime. Levofloxacin 500 mg p.o. daily. Zyvox 600 mg p.o. b.i.d. 14 days. Montelukast 10 mg p.o. at bedtime. Nifedipine 60 mg p.o. daily] EMERGENCY INSTRUCTIONS: The patient was instructed to present to the nearest Emergency departmentr or call 911 once their symptoms will return or worsen Financial Institution Branch Manager(s): 59-year-old male with underlying history of hypertension, hyperlipidemia, peripheral arterial disease, type 2 diabetes mellitus, ESRD on chronic home hemodialysis of Wednesday, Wednesday, Wednesday, history of chronic diabetic foot ulcer of the right heel being followed by Podiatry as outpatient, psoriasis on chronic outpatient steroids and Remicade infusion who presented to the ER after his PermCath for hemodialysis was dislodged. Dislodgement happened on Wednesday and patient decided to come to the ER today for further evaluation. Patient states that similar episode has happened about six months ago and patient had PermCath placed by IR. history of chronic diabetic foot/ heel ulcer being followed by Dr. Jackson as outpatient. He was seen by Dr. Jackson recently and has been taking oral outpatient antibiotics with doxycycline. He is supposed to see Dr. Mata with Infectious Disease on 05/26/2024 given persistent nonresolving infection. Throughout the hospitalization patient underwent PermCath placement 05/23/2024 by IR and right BKA with a 05/30/2024. Blood culture after five days was negative. Right heel culture showed prevotella Melaniinogenica, Enterococcus faecalis, MRSA, Pseudomonas aeruginosa. As per Gabe patient to be discharged home on Zyvox and Levaquin. Today patient was cleared by all the consultants to be discharged home follow up with ict support technicians as scheduled for dialysis. Follow up with ID the patient weakly follows outpatient to maame nue/monitor antibiotics POA. Follow-up with PCP in 2 to 3 days. Follow up with Dr. Jackson within one week. Follow up with the surgeon within one week. Case management was able to find a home health for the patient. Patient to be discharged with [facility] that will provide patient with the wound care and physical therapy. Procedure(s): REVIEW OF SYSTEMS CONSTITUTIONAL: Denies any problems NEUROLOGICAL: Denies headache, amaurosis fugax, motor weakness, sensory deficit, vertigo/spinning sensation, gait abnormalities, or tremors. ENT: No hearing loss, otalgia, otorrhea, rhinitis, rhinorrhea, hoarseness, or sore throat. CARDIOVASCULAR: Denies any exertional angina, dyspnea on exertion, orthopnea, paroxysmal nocturnal dyspnea, palpitations, life-threatening arrhythmias, c laudication. PULMONARY: Denies any shortness of breath, cough, phlegm/sputum, hemoptysis, pleuritic chest pain. SLEEP: Denies morning headaches, daytime somnolence or napping. Denies difficulty falling asleep, staying asleep, waking from sleep. Denies knowledge of snoring. GASTROINTESTINAL: Denies any type of dysphagia to either liquids or solids. Denies nausea, vomiting, pyrosis, early satiety, abdominal pain, diarrhea, cons tipation, or changes in stool consistency or caliber. Denies coffee-ground emesis, hematemesis, hematochezia, or melanotic stools. GENITOURINARY: Denies frequency, urgency, nocturia, hematuria or incontinence (Storage/Irritative symptoms.) Low urinary stream, straining to void, urinary intermittency or hesitancy, splitting of the voiding stream, terminal dribbling. ENDOCRINOLOGIC: Denies polyuria, polydipsia, polyphagia or heat/cold intolerances. HEMATOLOGIC: Denies thrombophilia/previous clots, or coagulopathy/bleeding disorders. ONCOLOGIC: Denies personal history of malignancy. DERMATOLOGIC: ulcer involving the right foot heel PSYCHIATRIC: Denies any suicidal or homicidal ideation. Denies hallucinations. PHYSICAL EXAM GENERAL APPEARANCE: The patient is awake, alert, and oriented, in no acute cardiopulmonary distress. NEUROLOGICAL: Cranial nerves II-XII grossly intact. Motor is 5/5 in bilateral upper and lower extremities proximal to distal. No sensory deficits. HEENT: Face is symmetric. Pupils are equal and reactive. Extraocular movements are intact. NECK: Supple. No JVD. No thyromegaly. No submental, submandibular, pre- /postauricular, occipital or supraclavicular lymphadenopathy. CHEST: Normal chest expansion. No Telemetry. LUNGS: Absence of any rales, rhonchi or any wheezing. CARDIOVASCULAR: Regular. S1 and S2 normal. No appreciable rubs, murmurs or gallops. ABDOMEN: Soft, nontender, and nondistended. There is no rebound, voluntary guarding, or rigidity. : Deferred. No Hutson. EXTREMITIES: Right BKA SKIN: No skin breakdown. Assessment/Plan: ASSESSMENT: Dislodged PermCath, POA -resolved s/p PermCath placement 05/23/2024 by IR History of ESRD on home hemodialysis therapy, POA osteomyelitis per foot x-ray 05/22/2024 S/p Right BKA 05/30/2024 Right heel culture growing Enterococcus faecalis, Streptococcus MRSA, Pseudomonas aeruginosa 05/22/2024 Chronic leukocytosis, POA Underlying immunosuppression on outpatient treatment with steroids and Remicade, POA Nonhealing diabetic foot ulcer/heel ulcer with associated deep eschar/necrotic region, being followed by Dr. Jackson as outpatient, POA Anemia of renal disease, POA Underlying history of type 2 diabetes mellitus, POA History of chronic prednisone use as outpatient, POA Uncontrolled Hypertension, POA Hyperlipidemia, POA History of peripheral arterial disease, POA Prior history of angioplasty to right popliteal artery and distal SFA by Dr. Arzate on 01/24/2024, POA History penicillin allergy, POA Noncompliance Home Medications: Reported Medications Hum Insulin NPH/Reg Insulin Hm (Humulin 70/30 Kwikpen) 100 Unit/Ml (70-30) Insuln.pen, 30 UNITS SQ DAILY 01/14/24 Nifedipine (Nifedipine ER) 30 Mg Tablet.er, 60 MG PO BID 01/14/24 Prednisone (Prednisone) 5 Mg Tablet, 5 MG PO BID, TAB 01/14/24 Discontinued Reported Medications Atorvastatin Calcium (Atorvastatin Calcium) 20 Mg Tablet, 20 TAB PO DAILY 01/14/24 Time spent arranging discharge: 31-60 minutes ATTESTATION BY PHYSICIAN I have seen and examined the patient. I reviewed the documentation, medical d ecision making, and treatment plan as noted by the mid-level provider above. I agree with the findings and plan of care. Florin Joy IV, MD, KATARZYNA B BIOLOGY PROFESSOR Jun 07, 2024 11:15
--- NOTE | 2024-06-07 11:30 | NUR ---
BLOOD GLUCOSE 168. NO INSULIN COVERAGE NEEDED AT THIS TIME.
--- NOTE | 2024-06-07 11:46 | PN ---
PROGRESS NOTE Date of Service: Jun 07, 2024 Time of Service: 11:44 SUBJECTIVE: No new concerns reported in the last 24hours. Denies fever chills and pain. Examined at bedside. HD today REVIEW OF SYSTEMS CONSTITUTIONAL: Denies fever, chills, or fatigue. HEAD/FACE: No signs of trauma. EENT: Denies eye pain, blurred vision, double vision, or light sensitivity. RESPIRATORY: Denies shortness of breath, cough, wheezing CARDIOVASCULAR: Denies chest pain, palpitation, syncope peripheral arterial sclerosis. GASTROINTESTINAL/ABDOMINAL: Denies abdominal pain, constipation, diarrhea, nausea or vomiting GENITOURINARY: Denies dysuria or hematuria. 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 INTEGUMENTARY: Gangrenous ulcer to the posterior aspect of the right foot and heel. NEUROLOGICAL/PSYCH: Denies anxiety, depression, heat or cold intolerance. PHYSICAL EXAM EYES: Anicteric. Pupils equal and reactive. HENT: No oral thrush seen, moist Oral mucosa NECK: Supple, no JVD or thyromegaly. LUNGS: Good air entry. No rales, no rhonchi. CARDIOVASCULAR: S1, S2 regular. No murmur heard. ABDOMEN: Soft, non tender, bowel sounds present, no organomegaly CENTRAL NERVOUS SYSTEM: Awake, alert, oriented x 3. No focal deficits. SKIN: Ulcer with gangrene to the right foot stump. LYMPHATICS: No peripheral lymphadenopathy MUSCULOSKELETAL: Edema erythema and swelling of the right stump with a history of Syme's amputation. EXTREMITIES: Gangrenous ulcer to the posterior and plantar aspect of the right foot stump. BACK: No deformity, no pressure ulcer. GENITOURINARY: No dysuria or hematuria Vital Signs (last 8hr) Date Time Temp Pulse Resp B/P (MAP) Pulse Ox O2 Delivery O2 Flow Rate FiO2 06/07/24 11:20 90 16 139/70 Room Air 06/07/24 11:05 90 16 143/77 Room Air 06/07/24 10:50 94 16 153/80 Room Air 06/07/24 10:35 83 16 153/83 Room Air 06/07/24 10:20 83 16 163/82 Room Air 06/07/24 10:05 84 16 155/78 Room Air 06/07/24 09:55 97.7 87 16 132/80 Room Air 06/07/24 09:48 97.7 84 16 159/82 Room Air 06/07/24 08:16 97.5 84 19 156/75 92 Room Air 06/07/24 07:46 85 20 06/07/24 07:45 85 20 N/A Room Air 21 06/07/24 04:00 97.3 83 20 164/92 91 Room Air LABS: Laboratory: Test 06/07/24 11:34 06/07/24 04:36 Range/Units Whole Blood Glucose 168 H 70-110 MG/DL White Blood Count 9.9 4.8-10.8 K/uL Red Blood Count 3.02 L 4.50-6.20 MIL/uL Hemoglobin 8.9 L 14.0-18.0 g/dL Hematocrit 27.5 L 42-54 % Mean Corpuscular Volume 91.1 79-99 fL Mean Corpuscular Hemoglobin 29.5 27.0-33.0 pg Mean Corpuscular Hemoglobin Concent 32.4 32.0-36.0 g/dL Red Cell Distribution Width 14.6 11.0-15.5 % Platelet Count 221 130-400 K/uL Mean Platelet Volume 11.4 H 7.5-10.5 fL Immature Granulocyte % (Auto) 5.2 H 0-1 % Neutrophils (%) (Auto) 71.8 40.0-77.0 % Lymphocytes (%) (Auto) 16.7 L 21.0-51.0 % Monocytes (%) (Auto) 5.1 3.0-13.0 % Eosinophils (%) (Auto) 0.7 0.0-8.0 % Basophils (%) (Auto) 0.5 0.0-5.0 % Neutrophils # (Auto) 7.1 1.8-7.7 K/uL Lymphocytes # (Auto) 1.7 1.0-4.8 K/uL Monocytes # (Auto) 0.5 0.1-1.0 K/uL Eosinophils # (Auto) 0.07 0.00-0.70 K/uL Basophils # (Auto) 0.05 0.00-0.20 K/uL Absolute Immature Granulocyte (auto 0.52 0-1 K/uL Nucleated Red Blood Cells 0.0 0.0-0.19 % Sodium Level 136 136-145 mmol/L Potassium Level 4.3 3.5-5.1 mmol/L Chloride Level 99 L 101-111 mmol/L Carbon Dioxide Level 30 21-32 mmol/L Blood Urea Nitrogen 52 H 7-18 mg/dL Creatinine 7.8 H 0.5-1.3 mg/dL Glomerular Filtration Rate Calc 7 >90 mL/min Random Glucose 234 H 70-105 mg/dL Total Calcium 7.4 L 8.5-10.1 mg/dL Magnesium Level 1.90 1.80-2.40 mg/dL Total Bilirubin 0.6 0.2-1.0 mg/dL Aspartate Amino Transf (AST/SGOT) 16 10-37 U/L Alanine Aminotransferase (ALT/SGPT) < 6 L 12-78 U/L Alkaline Phosphatase 85 50-136 U/L Total Protein 6.1 6.0-8.3 g/dL Albumin 2.4 L 3.5-5.0 g/dL DIAGNOSTICS / RADIOLOGY: CRANBERRY BOG SUPERVISOR PROCEDURE REQUEST REASON: DISLODGED PERMACATH. COMPARISON: None TECHNIQUE: Fluoroscopic guidance with placement of left internal jugular-right atrial tunneled Duramax dialysis catheter. FINDINGS: The right internal jugular vein is occluded at the junction with the superior vena cava and right subclavian vein. Left internal jugular vein is patent. PROCEDURE: Informed consent obtained the patient following explanation of risk, benefits, complications. Timeout performed by nursing staff. Continuous monitoring was performed of the patient during the procedure I nursing personnel including cardiovascular status, oxygenation, respiration. Patient received intravenous titrated doses of Versed and fentanyl during the procedure administered by nursing personnel. Right neck and left neck were prepped and draped in sterile fashion. Ultrasound of the right neck demonstrates large amount thrombus within the proximal internal jugular vein. Following local anesthesia with 1% lidocaine, access gained into the right internal jugular vein under direct ultrasound guidance. Guidewire could not be passed beyond the area of obstruction at the junction with the SVC. This site was abandoned and attention was made to the left internal jugular venous access site. Following local anesthesia with 1% lidocaine subcutaneous, needle access into the left internal jugular vein obtained with ultrasound guidance. Fine guidewire placement, microcatheter access was passed over the guidewire. J-wire was then passed through the sheath in past the right atrium into the inferior vena cava. Fashion dilatation performed, tunneled Duramax catheter 32 cm in length, was passed over guidewire and the tip of the catheter positioned within the right atrium. Both ports were flushed, aspirated, flushed, heparinized, capped, clamped. Catheter secured to the skin with retention suture and sterile dressing. Patient tolerated procedure well without evidence of comp occasions. Total fluoroscopic time: 3.7 minutes. Estimated blood loss: Less than 8 ml. IMPRESSION: Placement of 32 cm tunneled Duramax dialysis catheter with the tip positioned within the right atrium. Access from the left internal jugular vein. Catheter is ready for immediate use. ASSESSMENT: ESRD DM2 with nephropathy HTN with renal manifestation Hyperkalemia Anemia of CKD Osteomyelitis PLAN: HD today as scheduled pending disposition No change to POC Monitor Electrolytes Renal Diet CHEPE as per protocol with HD treatments Continue home medications LALITHA KOCH Jun 07, 2024 11:46
--- NOTE | 2024-06-07 13:05 | PN ---
[facility] PROGRESS NOTE Date Patient Seen: Jun 07, 2024 Time of Visit: 13:05 Supervising Physician: Dr. Padmini Dimas Primary Care Physician: Dr Chuck Olmedo MD Outpatient Specialists: Inpatient Consults: Dr Jackson, Dr Oden, Dr Mera, Dr Montes, Dr Edmonds PROBLEM LIST: Acute hypoxic and Hypercapnic respiratory failure not POA Opioid induced respiratory depression Metabolic encephalopathy, not POA Suspected Sleep apnea undiagnosed and untreated. Dislodged PermCath, POA s/p left side chest wall Permacth placement 05/23/24 History of ESRD on home hemodialysis therapy, POA osteomyelitis per foot x-ray 05/22/2024 S/P Rt BKA 05/22/24 Right heel culture growing Enterococcus faecalis, Streptococcus MRSA, Pseudomonas aeruginosa 05/22/2024 Chronic leukocytosis, POA Underlying immunosuppression on outpatient treatment with steroids and Remicade, POA Anemia of renal disease, POA Uncontrolled type 2 diabetes mellitus, POA Uncontrolled Hypertension, POA Hyperlipidemia, POA History of severe peripheral arterial disease, POA Prior history of angioplasty to right popliteal artery and distal SFA by Dr. Arzate on 01/24/2024, POA History penicillin allergy, POA Noncompliance INTERVAL HISTORY: Patient evaluated at bedside today, currently on room air receiving hemodialysis therapy. Patient denies any discomfort, pain at the BKA site is well tolerated. Patient's lungs are clear to auscultation. He has not used O2 since he was removed from anesthesia following his surgery. Patient states that he does not feel that a of her actually needed the oxygen however states that because of all the pain killers she was on his respirations were depressed. Patient was educated that this is likely a possibility and why he was administered Narcan following anesthesia and pain medication administration. Patient advised at this time then pulmonary Services will sign off the case. Patient is likely to discharge today per primary team. Disposition per primary. REVIEW OF SYSTEMS: 12 point review of systems done, all pertinent information addressed PHYSICAL EXAM: GENERAL: Lethargic GCS of 13 HEENT: Sclera non icteric, moist mucosa NECK: Short no JVD, trachea midline LUNGS: Coarse crackles sounds bilaterally. No wheezes HEART: Regular rate and rhythm. Normal S1 and S2, without murmurs ABD: Abdomen soft, nontender. Bowel sounds present EXT: No clubbing cyanosis or edema dressing to right BKA clean dry and intact NEURO: GCS of 13 no focal weakness, when he is awake oriented x3. Vital Signs (last 8hr) Date Time Temp Pulse Resp B/P (MAP) Pulse Ox O2 Delivery O2 Flow Rate FiO2 06/07/24 12:11 97.9 87 16 163/84 Room Air 06/07/24 12:00 97.7 90 18 139/70 94 Room Air 21 06/07/24 11:50 97.9 85 16 149/77 Room Air 06/07/24 11:35 88 16 140/73 Room Air 06/07/24 11:20 90 16 139/70 Room Air 06/07/24 11:05 90 16 143/77 Room Air 06/07/24 10:50 94 16 153/80 Room Air 06/07/24 10:35 83 16 153/83 Room Air 06/07/24 10:20 83 16 163/82 Room Air 06/07/24 10:05 84 16 155/78 Room Air 06/07/24 09:55 97.7 87 16 132/80 Room Air 06/07/24 09:48 97.7 84 16 159/82 Room Air 06/07/24 08:16 97.5 84 19 156/75 92 Room Air 06/07/24 07:46 85 20 06/07/24 07:45 85 20 N/A Room Air 21 LABS: Hematology Labs: Test 06/07/24 04:36 Range/Units White Blood Count 9.9 4.8-10.8 K/uL Red Blood Count 3.02 L 4.50-6.20 MIL/uL Hemoglobin 8.9 L 14.0-18.0 g/dL Hematocrit 27.5 L 42-54 % Mean Corpuscular Volume 91.1 79-99 fL Mean Corpuscular Hemoglobin 29.5 27.0-33.0 pg Mean Corpuscular Hemoglobin Concent 32.4 32.0-36.0 g/dL Red Cell Distribution Width 14.6 11.0-15.5 % Platelet Count 221 130-400 K/uL Mean Platelet Volume 11.4 H 7.5-10.5 fL Immature Granulocyte % (Auto) 5.2 H 0-1 % Neutrophils (%) (Auto) 71.8 40.0-77.0 % Lymphocytes (%) (Auto) 16.7 L 21.0-51.0 % Monocytes (%) (Auto) 5.1 3.0-13.0 % Eosinophils (%) (Auto) 0.7 0.0-8.0 % Basophils (%) (Auto) 0.5 0.0-5.0 % Neutrophils # (Auto) 7.1 1.8-7.7 K/uL Lymphocytes # (Auto) 1.7 1.0-4.8 K/uL Monocytes # (Auto) 0.5 0.1-1.0 K/uL Eosinophils # (Auto) 0.07 0.00-0.70 K/uL Basophils # (Auto) 0.05 0.00-0.20 K/uL Absolute Immature Granulocyte (auto 0.52 0-1 K/uL Nucleated Red Blood Cells 0.0 0.0-0.19 % Chemistry Labs: Test 06/07/24 11:34 06/07/24 04:36 Range/Units Whole Blood Glucose 168 H 70-110 MG/DL Sodium Level 136 136-145 mmol/L Potassium Level 4.3 3.5-5.1 mmol/L Chloride Level 99 L 101-111 mmol/L Carbon Dioxide Level 30 21-32 mmol/L Blood Urea Nitrogen 52 H 7-18 mg/dL Creatinine 7.8 H 0.5-1.3 mg/dL Glomerular Filtration Rate Calc 7 >90 mL/min Random Glucose 234 H 70-105 mg/dL Total Calcium 7.4 L 8.5-10.1 mg/dL Magnesium Level 1.90 1.80-2.40 mg/dL Total Bilirubin 0.6 0.2-1.0 mg/dL Aspartate Amino Transf (AST/SGOT) 16 10-37 U/L Alanine Aminotransferase (ALT/SGPT) < 6 L 12-78 U/L Alkaline Phosphatase 85 50-136 U/L Total Protein 6.1 6.0-8.3 g/dL Albumin 2.4 L 3.5-5.0 g/dL DIAGNOSTICS / RADIOLOGY RESULTS: [ ] PLAN 06/03/2024: For now, we are going to continue current management for the pa tient. We will supplement oxygenation as necessary. We will monitor for any arrhythmias or changes of vital signs. We will continue renal replacement therapy per the director of guidance in public [employer]. We will continue to provide general supportive care, GI and DVT prophylaxis. Further orders per attending MD and hospital course. 06/05/2024 Continue optimizing his medical management recommended follow up as an outpatient at the pulmonary clinic in 2 -3 weeks for sleep studies NEURO: Minimize central acting medications as possible. Maintain fall precautions, adequate lighting during the day PULMONARY: Supplemental 02 as needed. Maintain aspiration precautions at all times CARDIOVASCULAR: Follow hemodynamics. Vital signs per facility protocol GI & NUTRITION: Continue with nutritional support. Continue stool softeners and laxatives as needed. KIDNEYS & ELECTROLYTES: Strict monitoring of intake, output and overall fluid balance. Avoid nephrotoxic medications to the extent possible. Medications to be dosed according to renal function. Monitor electrolytes and replace as needed ENDOCRINE: Maintain blood glucose between 100-180 at all times. Hypoglycemia protocol in place INFECTIOUS DISEASE: Trend temperature, WBC and procalcitonin level Follow cultures, deescalate antibiotics as soon as possible. Panculture if new onset fever ONCOLOGY/HEMATOLOGY/COAGULATION: Monitor for s/s of bleeding Monitor hemoglobin, coagulation studies as needed SKIN: Pressure ulcer prevention per facility protocol Specialty mattress ORTHO/REHAB: Continue PT/OT Prophylaxis: Continue GI and DVT prophylaxis Code Status: Full Resuscitation Disposition: LINO ROSADO Jun 07, 2024 13:05
--- NOTE | 2024-06-07 13:50 | NUR ---
Discharge Planning: Pt. referred and accepted by [facility]. Plan is for discharge home after HD today.
--- NOTE | 2024-06-07 14:00 | NUR ---
PATIENT WITH DISCHARGE ORDERS FOR GOING HOME WITH [facility]. CALLED [facility] AT [phone], GAVE REPORT TO MRS. FAGAN MANAGER BANKING. SHE VERBALIZED UNDERSTANDING. DISCUSSED WITH PATIENT PLAN OF CARE, HOME MEDICATIONS, PAIN MANAGEMENT, FOLLOW UP APPOITMENTS, WOUND CARE AND DIALYSIS SCHEDULE. PATIENT AND SIGNIFICANT OTHER VERBALIZED UNDERSTANDING.
--- NOTE | 2024-06-07 15:03 | NUR ---
Notes: Met with pt. Pt reported hemodialysis 3 times a week at home, compliance with Nephvite, and has had prior nutrition education. Pt reported he checks his BG 3x a week and he is tired of pricking his fingers. Educated pt on the importance of BG monitoring and suggested a Dexcom. Pt states Dexcom is too costly, it costs him $75 for one with insurance. Provided MNT Renal Diet. During education I asked how much starchy foods the pt intakes while pointing to potatoes, pt reported Its hard to stay away from potatoes. Pt is expected to have fair compliance. Due to pt Hyperglycemia, A1C 8.6, and wound pt was educated on lean proteins. Pt pending d/c to home. Nutrition Concerns: Diabetic Ulcer Recommendations: Continue Current Diet Recommend + [id number] Recommend outpatient nutrition for continued nutrition education Recommend phosphate binders as needed Continue Nephrovite RD to follow + available for consult per protocol Addendum: 06/07/24 at [address] Amended: Links added.
--- NOTE | 2024-06-07 15:30 | NUR ---
DID NOT GIVE ANTIBIOTIC AFTER DIALYSIS DUE TO PATIENT NOT HAVING IV ACCESS. PATIENT REFUSES IV ACCESS, STATED THAT HE IS BEING DISCHARGE TODAY AND HE DOES NOT NEED IT.
--- NOTE | 2024-06-07 16:00 | NUR ---
PATIENT WAS DISCHARGED. WAS WHEELED DOWNSTAIRS. AND LEFT WITH SIGNIFICANT OTHER IN A PRIVATE CAR.
== END 2024-06-07 16:20 | disposition home health service (06) | DRG 239 ==
LOC: EDH 07:08 → EDHIP 10:24 → 4CH 20:01 → 2AH 06-02 15:20 → 3BH 06-04 14:30
PROVIDERS: ADMIT Internal Medicine; ATTEND Internal Medicine
PROC: 0JH63XZ Insertion of Tunneled Vascular Access Device into Chest Subcutaneous Tissue and Fascia, Percutaneous Approach (ICD-10-PCS; 2024-05-23)
PROC: 02HV33Z Insertion of Infusion Device into Superior Vena Cava, Percutaneous Approach (ICD-10-PCS; 2024-05-23)
PROC: B5181ZA Fluoroscopy of Superior Vena Cava using Low Osmolar Contrast, Guidance (ICD-10-PCS; 2024-05-23)
PROC: B548ZZA Ultrasonography of Superior Vena Cava, Guidance (ICD-10-PCS; 2024-05-23)
PROC: 5A1D70Z Performance of Urinary Filtration, Intermittent, Less than 6 Hours Per Day (ICD-10-PCS; 2024-05-23)
PROC: 5A1D70Z Performance of Urinary Filtration, Intermittent, Less than 6 Hours Per Day (ICD-10-PCS; 2024-05-25)
PROC: 5A1D70Z Performance of Urinary Filtration, Intermittent, Less than 6 Hours Per Day (ICD-10-PCS; 2024-05-27)
PROC: 30233N1 Transfusion of Nonautologous Red Blood Cells into Peripheral Vein, Percutaneous Approach (ICD-10-PCS; 2024-05-29)
PROC: 0Y6C0Z3 Detachment at Right Upper Leg, Low, Open Approach (ICD-10-PCS; principal; 2024-05-30 11:58)
PROC: 5A1D70Z Performance of Urinary Filtration, Intermittent, Less than 6 Hours Per Day (ICD-10-PCS; 2024-05-31)
PROC: 5A1D70Z Performance of Urinary Filtration, Intermittent, Less than 6 Hours Per Day (ICD-10-PCS; 2024-06-02)
PROC: 5A09357 Assistance with Respiratory Ventilation, Less than 24 Consecutive Hours, Continuous Positive Airway Pressure (ICD-10-PCS; 2024-06-02)
PROC: 5A1D70Z Performance of Urinary Filtration, Intermittent, Less than 6 Hours Per Day (ICD-10-PCS; 2024-06-05)
PROC: 5A1D70Z Performance of Urinary Filtration, Intermittent, Less than 6 Hours Per Day (ICD-10-PCS; 2024-06-07)
DX: E11.52 Type 2 diabetes mellitus with diabetic peripheral angiopathy with gangrene (principal); G93.41 Metabolic encephalopathy; J96.01 Acute respiratory failure with hypoxia; J96.02 Acute respiratory failure with hypercapnia; N18.6 End stage renal disease; T82.41XA Breakdown (mechanical) of vascular dialysis catheter, initial encounter; L97.413 Non-pressure chronic ulcer of right heel and midfoot with necrosis of muscle; M86.8X7 Other osteomyelitis, ankle and foot; I12.0 Hypertensive chronic kidney disease with stage 5 chronic kidney disease or end stage renal disease; L03.115 Cellulitis of right lower limb; D84.821 Immunodeficiency due to drugs; L97.518 Non-pressure chronic ulcer of other part of right foot with other specified severity; L97.418 Non-pressure chronic ulcer of right heel and midfoot with other specified severity; E87.29 Other acidosis; B35.1 Tinea unguium; L60.2 Onychogryphosis; E78.5 Hyperlipidemia, unspecified; E11.69 Type 2 diabetes mellitus with other specified complication; D63.1 Anemia in chronic kidney disease; E11.22 Type 2 diabetes mellitus with diabetic chronic kidney disease; E11.621 Type 2 diabetes mellitus with foot ulcer; B95.2 Enterococcus as the cause of diseases classified elsewhere; E11.65 Type 2 diabetes mellitus with hyperglycemia; E78.00 Pure hypercholesterolemia, unspecified; G93.89 Other specified disorders of brain; T40.2X5A Adverse effect of other opioids, initial encounter; I25.10 Atherosclerotic heart disease of native coronary artery without angina pectoris; E87.5 Hyperkalemia; E66.9 Obesity, unspecified; Z20.822 Contact with and (suspected) exposure to COVID-19; Y71.2 Prosthetic and other implants, materials and accessory cardiovascular devices associated with adverse incidents; Z79.02 Long term (current) use of antithrombotics/antiplatelets; Z79.60 Long term (current) use of unspecified immunomodulators and immunosuppressants; Z88.0 Allergy status to penicillin; Z79.52 Long term (current) use of systemic steroids; Z79.899 Other long term (current) drug therapy; Z82.49 Family history of ischemic heart disease and other diseases of the circulatory system; Z83.3 Family history of diabetes mellitus; Z89.511 Acquired absence of right leg below knee; Z89.512 Acquired absence of left leg below knee; Z99.2 Dependence on renal dialysis; Z90.49 Acquired absence of other specified parts of digestive tract; Y92.89 Other specified places as the place of occurrence of the external cause; Z68.30 Body mass index [BMI] 30.0-30.9, adult
CPT/HCPCS: 36415; 36558; 36600; 71045; 73630; 75635; 77001; 80048; 80053; 80076; 80202; 82803; 82948; 83036; 83735; 84145; 84443; 85025; 85027; 85610; 85651; 85730; 86140; 86704; 86706; 86803; 86850; 86900; 86901; 86923; 87040; 87070; 87076; 87086; 87186; 87340; 87426; 87804; 88307; 88311; 90935; 93005; 93923; 93926; 94660; 99156; 99157; 99285; C1750; C1769; G0378; J0171; J0330; J0360; J0692; J1100; J1171; J1644; J1815; J2003; J2185; J2250; J2270; J2310; J2371; J2405; J2470; J2704; J2710; J3010; J3490; J7040; J7512; P9016; P9045; P9047; Q9967; A4215; A4216; A4221; A4222; A4223; A4649; A6223; C1894; J3370

== ENCOUNTER 2024-07-15 09:23 | Inpatient (IN) | payer OTHER ==
[~2024-07-15] VITALS: Ht 180.3 cm; Wt 87.5 kg
[~2024-07-15 09:23] MED LIST changes: +ASPI-1005 PO; -ATOR20TA65 PO; +ATOR40TA69 PO; +BALS60OI TP; +BENZ-226 PO; +CLOP-31 PO; +INSLAN SQ; +LEVO-70 PO; +LINE600T11 PO; +MONT-46 PO; +NIFE-40 PO
[2024-07-15] MEDS ORDERED: VANCOMYCIN PROTOCOL PER PHARMACY IV SCH (10:00)
[2024-07-15 10:20] LABS: BASOPHILS # (AUTO) 0.04 K/uL (0.00-0.20); BASOPHILS % (AUTO) 0.3 % (0.0-5.0); EOSINOPHILS # (AUTO) 0.07 K/uL (0.00-0.70); EOSINOPHILS % (AUTO) 0.5 % (0.0-8.0); HEMATOCRIT 30.5 % (42-54); IMMATURE GRANULOCYTE ABSOLUTE 0.18 K/uL (0-1); LYMPHOCYTES # (AUTO) 1.5 K/uL (1.0-4.8); LYMPHOCYTES % (AUTO) 9.8 % (21.0-51.0); MEAN CORPUSCULAR HEMOGLOBIN 30.9 pg (27.0-33.0); MEAN CORPUSCULAR HGB CONC 31.5 g/dL (32.0-36.0); MEAN CORPUSCULAR VOLUME 98.1 fL (79-99); MONOCYTES # (AUTO) 0.9 K/uL (0.1-1.0); MONOCYTES % (AUTO) 5.6 % (3.0-13.0); NEUTROPHILS # (AUTO) 12.6 K/uL (1.8-7.7); NEUTROPHILS % (AUTO) 82.6 % (40.0-77.0); PLATELET COUNT (AUTO) 209 K/uL (130-400); RED BLOOD CELL COUNT(AUTO) 3.11 MIL/uL (4.50-6.20); WHITE BLOOD COUNT (AUTO) 15.2 K/uL (4.8-10.8)
--- NOTE | 2024-07-15 10:24 | ERN ---
General Chief Complaint: Wound Check Stated Complaint: RIGHT STUMP PAIN AND BLEEDING Time Seen by MD: 09:24 Source: patient History of Present Illness Initial Comments PATIENT IS A 59-YEAR-OLD MALE COMING IN TO BE EVALUATED FOR RIGHT LOWER EXTREMITY PAIN. PATIENT HAD A RIGHT BKA PERFORMED MONTH AGO BY DR. MAN. HE STATES THAT THE PAIN BEGAN COUPLE OF DAYS AGO DOES NOT KNOW IF HE FELL DOWN. PATIENT WAS CONCERNED BECAUSE WOUND WAS BLEEDING. Allergies: Coded Allergies: Penicillins (Unverified Allergy, Unknown, 01/14/24) Sulfa (Sulfonamide Antibiotics) (Unverified Allergy, Unknown, 01/14/24) Home Meds Active Scripts Levofloxacin (Levofloxacin) 500 Mg Tablet, 500 MG PO DAILY for 14 Days, #28 TAB Prov:PADDY MCLAIN APRN 06/06/24 Linezolid (Zyvox) 600 Mg Tablet, 1 TAB PO BID for 14 Days, #28 TAB 0 Refills with food Prov:PADDY MCLAIN APRN 06/06/24 Nifedipine (Nifedipine ER) 30 Mg Tab.er.24, 60 MG PO Q24H, #60 TAB Prov:PADDY MCLAIN APRN 06/06/24 Montelukast Sodium (Singulair 10Mg) 10 Mg Tab, 10 MG PO HS, #60 TAB Prov:PADDY MCLAIN APRN 06/06/24 Insulin Glargine,Hum.rec.anlog (Lantus) 100 Unit/Ml Inj, 15 UNITS SQ HS, #15 ML Prov:PADDY MCLAIN APRN 06/06/24 Clopidogrel Bisulfate (Plavix) 75 Mg Tablet, 75 MG PO DAILY, #60 TAB Prov:PADDY MCLAIN APRN 06/06/24 Benzonatate (Benzonatate) 100 Mg Capsule, 100 MG PO Q8H PRN for cough, #30 CAP Prov:PADDY MCLAIN APRN 06/06/24 Balsam Doug/[place] Oil (Venelex Ointment) 60 Gm Oint...g., 1 GM TP BID, #7 TUBE Prov:PADDY MCLAIN APRN 06/06/24 Atorvastatin Calcium (LIPITOR) 40 Mg Tablet, 40 MG PO HS, #60 TAB Prov:PADDY MCLAIN BISQUE PLACER 06/06/24 Aspirin (ASPIRIN 81MG CHEW TAB) 81 Mg Tab.chew, 81 MG PO DAILY, #60 TAB.CHEW Prov:PADDY MCLAIN BISQUE PLACER 06/06/24 Reported Medications Hum Insulin NPH/Reg Insulin Hm (Humulin 70/30 Kwikpen) 100 Unit/Ml (70-30) Insuln.pen, 30 UNITS SQ DAILY 01/14/24 Nifedipine (Nifedipine ER) 30 Mg Tablet.er, 60 MG PO BID 01/14/24 Prednisone (Prednisone) 5 Mg Tablet, 5 MG PO BID, TAB 01/14/24 Past Medical History Past Medical History: Arthritis, Diabetes-Type II, High Cholesterol, Hypertension, Renal Disese, Renal Failure Past Surgical History: Cholecystectomy Surgical History Other: RT FOOT AMPUTATION, NECK Family History Family History: Negative ROS Dictation CONSTITUTIONAL: NO CHILLS, NO FEVER, NO WEAKNESS, NO DIAPHORESIS, NO MALAISE. HEAD/FACE: NO SIGNS OF TRAUMA. EENT: NO EYE PAIN, NO BLURRED VISION, NO TEARING, NO DOUBLE VISION, NO EAR PAIN, NO EAR DISCHARGE, NO NOSE PAIN, NO NASAL CONGESTION, NO THROAT PAIN, NO THROAT SWELLING, NO MOUTH PAIN. RESPIRATORY: NO COUGH, NO ORTHOPNEA, NO SOB, NO STRIDOR, NO WHEEZING. CARDIOVASCULAR: NO CHEST PAIN, NO EDEMA, NO PALPITATIONS, NO SYNCOPE. GASTROINTESTINAL/ABDOMINAL: NO ABDOMINAL PAIN, NO CONSTIPATION, NO DIARRHEA, NO NAUSEA, NO VOMITING. GENITOURINARY: NO ABNORMAL DISCHARGE, NO DYSURIA, NO FREQUENT URINATION, NO HEMATURIA. NO COMPLAINTS OF PAIN IN THE GENITALS. MUSCULOSKELETAL: NO BACK PAIN, NO GOUT, JOINT PAIN, NO JOINT SWELLING, MUSCLE PAIN, NO MUSCLE STIFFNESS, NO NECK PAIN. INTEGUMENTARY: NO CHANGE IN COLOR, NO CHANGE IN HAIR/NAILS, NO DRYNESS, NO LESION, NO LUMPS, NO RASH. NEUROLOGICAL/PSYCH: NO ANXIETY, NOT DEPRESSED, NO EMOTIONAL PROBLEM, NO HEADACHE, NO NUMBNESS, NO PRE-EXISTING DEFICIT, NO HISTORY OF SEIZURES, NO TREMORS, NO WEAKNESS. HEMATOLOGIC/LYMPHATIC: NOT ANEMIC, NO HISTORY OF BLOOD CLOTS, APPARENT BLEEDING, NO BRUISING, GLANDS NOT SWOLLEN. ALL SYSTEMS NEGATIVE, EXCEPT NOTED. Physical Exam Physical Exam Dictation VITAL SIGNS: REVIEWED. GENERAL APPEARANCE: ALERT, ORIENTED X3, NO ACUTE DISTRESS, OBESE. HEAD AND FACE: NON-TRAUMATIC. EYES: PERRL, PINK CONJUNCTIVAS, EYELID NO TRAUMA, ANTERIOR CHAMBER CLEAR. EARS: PINNAS INTACT AND NO SIGNS OF TRAUMA OR ERYTHEMA. EAR CANALS CLEAR AND NO DISCHARGE. TMS NO ERYTHEMA. NOSE: NO DISCHARGE, NO BLEEDING. OROPHARYNX: MOUTH NORMAL, TEETH NO CARIES, TONGUE PINK. PHARYNX CLEAR, NO ERYTHEMA. TONSILS NO EXUDATES, NO ABSCESSES NOTED. MUCOUS MEMBRANE MOIST. NECK: SUPPLE, NON-TENDER, NO THYROMEGALY, NO MASSES, NO JVD, NO BRUITS. BREAST: DEFERRED. CHEST: NO TENDERNESS, NO CREPITUS, NO PARADOXICAL MOVEMENT, NO RETRACTIONS. LUNGS: CLEAR, WELL-VENTILATED, SYMMETRIC, NO RALES, NO WHEEZING, NO RHONCHI, NO STRIDOR, GOOD BREATH SOUNDS BILATERALLY. HEART: REGULAR RATE, REGULAR RHYTHM, NO MURMUR, NO GALLOPS. VASCULAR: NO PERIPHERAL EDEMA. ABDOMEN: SOFT, POSITIVE BOWEL SOUNDS, NONDISTENDED, NO GUARDING, NONTENDER, NO REBOUND, NO MASSES NO HEPATOMEGALY, NO SPLENOMEGALY, NO STREETER'S SIGN, NO HERNIAS. RECTAL: DEFERRED. GENITAL: DEFERRED. NEUROLOGICAL: NORMAL SPEECH, GROSS MOTOR FUNCTION INTACT, GROSS SENSORY FUNCTION INTACT. MUSCULOSKELETAL: NECK NONTENDER, FULL RANGE OF MOTION, BACK NONTENDER, FULL RANGE OF MOTION. EXTREMITIES: NONTENDER, FULL RANGE OF MOTION. RIGHT BKA ERYTHEMA AND DRAINAGE AT SURGICAL SITE SKIN: COLOR PINK, DRY, NO TURGOR, NO RASH, NO LACERATIONS, NO ABRASIONS, NO CONTUSIONS. LYMPHATICS: DEFERRED. Results Laboratory and Microbiology Lab and Micro Result Laboratory Tests Test 07/15/24 10:08 07/15/24 10:46 White Blood Count 15.2 K/uL (4.8-10.8) H Red Blood Count 3.11 MIL/uL (4.50-6.20) L Hemoglobin 9.6 g/dL (14.0-18.0) L Hematocrit 30.5 % (42-54) L Mean Corpuscular Volume 98.1 fL (79-99) Mean Corpuscular Hemoglobin 30.9 pg (27.0-33.0) Mean Corpuscular Hemoglobin Concent 31.5 g/dL (32.0-36.0) L Red Cell Distribution Width 16.0 % (11.0-15.5) H Platelet Count 209 K/uL (130-400) Mean Platelet Volume 11.0 fL (7.5-10.5) H Immature Granulocyte % (Auto) 1.2 % (0-1) H Neutrophils (%) (Auto) 82.6 % (40.0-77.0) H Lymphocytes (%) (Auto) 9.8 % (21.0-51.0) L Monocytes (%) (Auto) 5.6 % (3.0-13.0) Eosinophils (%) (Auto) 0.5 % (0.0-8.0) Basophils (%) (Auto) 0.3 % (0.0-5.0) Neutrophils # (Auto) 12.6 K/uL (1.8-7.7) H Lymphocytes # (Auto) 1.5 K/uL (1.0-4.8) Monocytes # (Auto) 0.9 K/uL (0.1-1.0) Eosinophils # (Auto) 0.07 K/uL (0.00-0.70) Basophils # (Auto) 0.04 K/uL (0.00-0.20) Absolute Immature Granulocyte (auto 0.18 K/uL (0-1) Nucleated Red Blood Cells 0.0 % (0.0-0.19) White Cell Morphology Comment See comments Erythrocyte Sedimentation Rate 67 MM/HR (0-20) H Sodium Level 141 mmol/L (136-145) Potassium Level 4.8 mmol/L (3.5-5.1) Chloride Level 102 mmol/L (101-111) Carbon Dioxide Level 30 mmol/L (21-32) Blood Urea Nitrogen 50 mg/dL (7-18) H Creatinine 5.4 mg/dL (0.5-1.3) H Glomerular Filtration Rate Calc 11 mL/min (>90) Random Glucose 116 mg/dL (70-105) H Total Calcium 8.3 mg/dL (8.5-10.1) L Lactic Acid Level 1.5 mmol/L (0.8-2.5) Total Creatine Kinase 14 U/L (21-232) #L Troponin I High Sensitivity 19 ng/L (4-75) Labs Reviewed?: Yes MDM MDM: Differential diagnosis: Osteomyelitis of the right leg, status post BKA, surgical evaluation, Rationale: Tests considered and ordered secondary to shared decision making include: labs, ECG and radiology Previous outside records reviewed: Old ER visits. Risk of complication and/or morbidity or mortality of patient management: None Medications-Per medication reconciliation Need for hospitalization: Patient does meet criteria for hospitalization. Need for emergency major/minor surgery: No There are no social concerns with this patient. Prescription drug management Prescriptions will include symptomatic care Patient's prior external medical records from other ER visits were reviewed by me as indicated. Prior testing and results from previous visits were reviewed. Prior tests were taken into account with medical decision making and resource utilization, independent historian/historians were used to obtain complete medical history. I independently interpreted the test that were performed, results were reviewed by me and considered findings on radiology if ordered. Medical management and examination interpretation discussions were had by me with other qualified healthcare professionals as indicated for the patient's care. Patient is a 59-year-old male coming in to be evaluated for right lower extremity pain. Long with the pain patient states that he has been noticing some drainage. On physical exam there is no open wound on the right lower extremity draining and when palpated increased drainage. Patient will be admitted under the care of hospitalist group for ongoing management of osteomyelitis. ED Course Orders Procedure Category Date Status Time Cbc With Differential LAB 07/15/24 Complete 09:39 Basic Metabolic Panel LAB 07/15/24 Complete 09:39 Erythrocyte LAB 07/15/24 Complete Sedimentation Rate 09:39 Aerobic Culture CHRIS 07/15/24 In Process 09:39 Anaerobic Culture CHRIS 07/15/24 In Process 09:39 Vancomycin Protocol PHA 07/15/24 Pending (Vancomycin Protocol 10:00 Vancomycin 1g/250ml PHA 07/15/24 Complete Kit (Vancomycin 1g/2 10:00 Tibia/Fibula 2vws Rt RAD 07/15/24 Resulted 09:43 Blood Cult CHRIS 07/15/24 In Process 10:31 Creatine Kinase, Total LAB 07/15/24 In Process 10:31 Troponin I High LAB 07/15/24 Complete Sensitivity 10:31 Lactic Acid LAB 07/15/24 In Process 10:31 Crp Quantitative LAB 07/15/24 In Process 10:31 Current Medications Medications (Trade) Dose Ordered Sig/Idania Route PRN Reason Start Time Stop Time Status Last Admin Dose Admin Vancomycin HCl (Vancomycin Protocol) 1 each AD IV 07/15/24 10:00 07/29/24 09:59 UNV Vancomycin HCl (Vancomycin 1g/ 250ml Kit) 1 gm ONCE ONCE IV 07/15/24 10:00 07/15/24 10:01 DC 07/15/24 10:46 Vital Signs Date Time Temp Pulse Resp B/P (MAP) Pulse Ox O2 Delivery O2 Flow Rate FiO2 07/15/24 10:55 84 18 154/73 100 Room Air* 0 21 07/15/24 09:24 97.7 91 16 180/80 98 Room Air 0 Critical Care Note Comments Critical Care Procedure Note Authorized and Performed by: me Total critical care time: Approximately 36 minutes Due to a high probability of clinically significant, life threatening deterioration, the patient required my highest level of preparedness to intervene emergently and I personally spent this critical care time directly and personally managing the patient. This critical care time included obtaining a history; examining the patient; pulse oximetry; ordering and review of studies; arranging urgent treatment with development of a management plan; evaluation of patient's response to treatment; frequent reassessment; and, discussions with other providers. This critical care time was performed to assess and manage the high probability of imminent, life-threatening deterioration that could result in multi-organ failure. It was exclusive of separately billable procedures and treating other patients and teaching time. Please see MDM section and the rest of the note for further information on patient assessment and treatment. DX & DISP Disposition: Inpatient Decision to Admit Time: 11:36 Departure Impression: Primary Impression: ESRD (end stage renal disease) on dialysis Additional Impression: Osteomyelitis of right lower limb Condition: Stable Referrals: STEPHANIE HAYES MD (PCP) RICARDO DIAZ MD Jul 15, 2024 10:24
[2024-07-15 10:28] LABS: CREATININE 5.4 mg/dL (0.5-1.3); POTASSIUM 4.8 mmol/L (3.5-5.1)
[2024-07-15] MEDS: VANCOMYCIN KIT 1 GM/250 ML IV.KIT IV ONE (10:46)
--- NOTE | 2024-07-15 11:13 | HMCIMG ---
TIBIA/FIBULA 2VWS RT INDICATION: OSTEO TECHNIQUE: TIBIA/FIBULA 2VWS RT. FINDINGS AND IMPRESSION: No displaced fracture or dislocation is seen. Correlate clinically. There is diffuse soft tissue swelling. Below knee amputation changes are seen. There is no obvious erosive changes to suggest osteomyelitis. Dense vascular calcifications are noted.
[2024-07-15 11:24] LABS: ERYTHROCYTE SEDIMENTATION RATE 67 MM/HR (0-20)
[2024-07-15] MEDS ORDERED: PoTASSium chl 10% ELIXIR 20MEQ 20 MEQ/15 ML UDCUP PO PRN (12:00)
[2024-07-15] MEDS ORDERED: PoTASSium chloRIDE 10MEQ/100ML 100 ML IV PRN (12:00)
[2024-07-15] MEDS ORDERED: GLUCAGON 1MG KIT 1 MG ML IM PRN (12:00)
[2024-07-15] MEDS ORDERED: acetaMINOPHEN 325 MG TAB PO PRN ×2 (12:00)
[2024-07-15] MEDS ORDERED: DEXTROSE 50%-WATER 50 ML DISP.SYRIN IV PRN (12:00)
[2024-07-15] MEDS ORDERED: MAGNESIUM 2GM PREMIX 50ML 50 ML IV PRN (12:00)
[2024-07-15] MEDS ORDERED: PoTASSium chloRIDE 20MEQ ER 20 MEQ ERTAB PO PRN (12:00)
--- NOTE | 2024-07-15 12:05 | HP ---
[facility] HISTORY AND PHYSICAL Date of Service: Jul 15, 2024 Time of Service: 12:05 HISTORY OF PRESENT ILLNESS: [59 year old his medical history of ESRD on dialysis Wednesday, diabetes mellitus, hypertension, peripheral arterial disease, hyperlipidemia, history of chronic diabetic foot ulcer of the right heel being followed by Podiatry, status post right BKA with Dr. Arevalo on 05/30/2024. Patient stated that about a week ago they remove the suture as stump has been healing better. He stated that he must have scratch on it and that is when it started to show redness and pain. He presented to the emergency department due to continues redness and pain. He denies fever chills body aches. Dr. Diaz, ER physician reported that he palpated the right lower extremity and noted increased drainage. Vital signs showed temperature of 98.1, pulse 84, respiratory rate 16, BP 169/82, pulse oximetry 99% on room air. Labs reviewed, WBC 15.2, left shift noted. BUN 50, creatinine 5.4, GFR , random glucose 116, total calcium 8.3, total creatinine kinase 14, CRP 250.20. Right tibia and fibula x-ray showed no displaced fracture or dislocation seen. Correlate clinically. Diffuse soft tissue swelling. Evfft-[id number] amputation changes are seen. There is no obvious erosive changes to suggest osteomyelitis. Dense vascular calcification are noted. Patient received IV antibiotics with vancomycin, renally dose in the emergency department. Patient was referred to the hospitalist for further evaluation and management. ] REVIEW OF SYSTEMS CONSTITUTIONAL: Denies fevers, chills, or night sweats. No unintentional weight loss reported. NEUROLOGICAL: Denies headache, amaurosis fugax, motor weakness, sensory deficit, vertigo/spinning sensation, gait abnormalities, or tremors. ENT: No hearing loss, otalgia, otorrhea, rhinitis, rhinorrhea, hoarseness, or sore throat. CARDIOVASCULAR: Denies any exertional angina, dyspnea on exertion, orthopnea, paroxysmal nocturnal dyspnea, palpitations, life-threatening arrhythmias, claudication. PULMONARY: Denies any shortness of breath, cough, phlegm/sputum, hemoptysis, pleuritic chest pain. SLEEP: Denies morning headaches, daytime somnolence or napping. Denies difficulty falling asleep, staying asleep, waking from sleep. Denies knowledge of snoring. GASTROINTESTINAL: Denies any type of dysphagia to either liquids or solids. Denies nausea, vomiting, pyrosis, early satiety, abdominal pain, diarrhea, constipation, or changes in stool consistency or caliber. Denies coffee-ground emesis, hematemesis, hematochezia, or melanotic stools. GENITOURINARY: Denies frequency, urgency, nocturia, hematuria or incontinence (Storage/Irritative symptoms.) Low urinary stream, straining to void, urinary intermittency or hesitancy, splitting of the voiding stream, terminal dribbling. ENDOCRINOLOGIC: Denies polyuria, polydipsia, polyphagia or heat/cold intolerances. HEMATOLOGIC: Denies thrombophilia/previous clots, or coagulopathy/bleeding disorders. ONCOLOGIC: Denies personal history of malignancy. DERMATOLOGIC: Denies rashes or pruritus. PSYCHIATRIC: Denies any suicidal or homicidal ideation. Denies hallucinations. PAST MEDICAL HISTORY: [ ESRD, hypertension, hyperlipidemia, diabetes mellitus type 2, peripheral arterial disease, psoriasis ] PAST SURGICAL HISTORY: [ Multiple AV graft, cholecystectomy, neck, wrist surgery, right BKA ] PAST SOCIAL HISTORY: [Patient denies tobacco, alcohol illicit drug use. ] FAMILY HISTORY: [Diabetes mellitus ] Coded Allergies: Penicillins (Unverified Allergy, Unknown, 01/14/24) Sulfa (Sulfonamide Antibiotics) (Unverified Allergy, Unknown, 01/14/24) PHYSICAL EXAM GENERAL APPEARANCE: The patient is awake, alert, and oriented, in no acute cardiopulmonary distress. NEUROLOGICAL: Cranial nerves II-XII grossly intact. Motor is 5/5 in bilateral upper and lower extremities proximal to distal. No sensory deficits. HEENT: Face is symmetric. Pupils are equal and reactive. Extraocular movements are intact. NECK: Supple. No JVD. No thyromegaly. No submental, submandibular, pre- /postauricular, occipital or supraclavicular lymphadenopathy. CHEST: Normal chest expansion. No Telemetry. LUNGS: Absence of any rales, rhonchi or any wheezing. CARDIOVASCULAR: Regular. S1 and S2 normal. No appreciable rubs, murmurs or gallops. ABDOMEN: Soft, nontender, and nondistended. There is no rebound, voluntary guarding, or rigidity. : Deferred. No Hutson. EXTREMITIES: Non-edematous and not cyanotic. No clubbing. Good capillary refill. SKIN: No skin breakdown. Vital Sign (Last 24 Hours) 07/15/24 07/15/24 09:24 10:55 Temp 97.7 Pulse 84 Resp 18 B/P (MAP) 154/73 Pulse Ox 100 O2 Delivery Room Air* O2 Flow Rate 0 FiO2 21 LABS: Laboratory: Test 07/15/24 10:46 07/15/24 10:08 Range/Units Lactic Acid Level 1.5 0.8-2.5 mmol/L Total Creatine Kinase 14 #L 21-232 U/L Troponin I High Sensitivity 19 4-75 ng/L C-Reactive Protein, Quantitative 250.20 H 0.5-3.0 mg/L White Blood Count 15.2 H 4.8-10.8 K/uL Red Blood Count 3.11 L 4.50-6.20 MIL/uL Hemoglobin 9.6 L 14.0-18.0 g/dL Hematocrit 30.5 L 42-54 % Mean Corpuscular Volume 98.1 79-99 fL Mean Corpuscular Hemoglobin 30.9 27.0-33.0 pg Mean Corpuscular Hemoglobin Concent 31.5 L 32.0-36.0 g/dL Red Cell Distribution Width 16.0 H 11.0-15.5 % Platelet Count 209 130-400 K/uL Mean Platelet Volume 11.0 H 7.5-10.5 fL Immature Granulocyte % (Auto) 1.2 H 0-1 % Neutrophils (%) (Auto) 82.6 H 40.0-77.0 % Lymphocytes (%) (Auto) 9.8 L 21.0-51.0 % Monocytes (%) (Auto) 5.6 3.0-13.0 % Eosinophils (%) (Auto) 0.5 0.0-8.0 % Basophils (%) (Auto) 0.3 0.0-5.0 % Neutrophils # (Auto) 12.6 H 1.8-7.7 K/uL Lymphocytes # (Auto) 1.5 1.0-4.8 K/uL Monocytes # (Auto) 0.9 0.1-1.0 K/uL Eosinophils # (Auto) 0.07 0.00-0.70 K/uL Basophils # (Auto) 0.04 0.00-0.20 K/uL Absolute Immature Granulocyte (auto 0.18 0-1 K/uL Nucleated Red Blood Cells 0.0 0.0-0.19 % White Cell Morphology Comment See comments Erythrocyte Sedimentation Rate 67 H 0-20 MM/HR Sodium Level 141 136-145 mmol/L Potassium Level 4.8 3.5-5.1 mmol/L Chloride Level 102 101-111 mmol/L Carbon Dioxide Level 30 21-32 mmol/L Blood Urea Nitrogen 50 H 7-18 mg/dL Creatinine 5.4 H 0.5-1.3 mg/dL Glomerular Filtration Rate Calc 11 >90 mL/min Random Glucose 116 H 70-105 mg/dL Total Calcium 8.3 L 8.5-10.1 mg/dL Current Medications Medications (Trade) Dose Ordered Sig/Idania Route PRN Reason Start Time Stop Time Status Last Admin Dose Admin Vancomycin HCl (Vancomycin Protocol) 1 each AD IV 07/15/24 10:00 07/29/24 09:59 [facility] / RADIOLOGY: [place] [address] IMAGING REPORT Signed PATIENT: FREDRICK LION MR#: [id number] : 1965 SEX: M AGE: 59 LOCATION: [facility] ORDER 3 STATUS: REG REPORT#: [id number] SERVICE 2 REASON: OSTEO ORDERING PHYSICIAN: RICARDO DIAZ MD PROCEDURE: TIBFIB RT - TIBIA/FIBULA 2VWS RT TIBIA/FIBULA 2VWS RT INDICATION: OSTEO TECHNIQUE: TIBIA/FIBULA 2VWS RT. FINDINGS AND IMPRESSION: No displaced fracture or dislocation is seen. Correlate clinically. There is diffuse soft tissue swelling. Below knee amputation changes are seen. There is no obvious erosive changes to suggest osteomyelitis. Dense vascular calcifications are noted. DICTATED BY: CASA VIVEROS MD DATE: 07/15/241109 ELECTRONICALLY SIGNED BY: CASA VIVEROS MD DATE: 07/15/24 1113 ] ASSESSMENT: [Suspected infection to the right stump, POA Cellulitis, POA Right BKA, POA End-stage renal disease, on dialysis POA Hyperglycemia with diabetes mellitus, POA Leukocytosis, POA Chronic anemia, POA ] PLAN: [Patient admitted to medical telemetry floor Patient will be on renal diet Patient will be on IV antibiotics with vancomycin renally dose We will be consulting Infectious Disease for antibiotic stewardship We will order bone scan to the right stump to rule out osteomyelitis We will be consulting Nephrology for inpatient hemodialysis management We will consult Dr. Montes for further recommendation GI and DVT prophylaxis We will check electrolytes and replete as necessary We will repeat labs tomorrow Treatment plan discussed with patient and family at the bedside Medications to be reconciled once obtained by patient and/or family and available to be reconciled in computer P.r.n. medication for pain nausea and vomiting Questions were answered We will continue to monitor the patient closely Skoog Machine Operator for disposition Rehab: PT/OT/ST GI: PPI DVT: SCD's Code Status: Full Resuscitation Disposition: TBD Prognosis: Guarded NEURO: Minimize central acting medications as possible. Fall Precautions. Well lighted room through the day and minimize interruptions through the night to prevent acute delirium. PULMONARY: Supplemental 02 as needed BiPAP as necessary, for respiratory distress Titrate Fio2 to keep Spo2 > or = 90% DuoNebs and CPT as needed IS hourly while awake for pulmonary hygiene Out of bed to chair as tolerated VAP Bundle Maintain aspiration precautions at all times CARDIOVASCULAR: Follow hemodynamics. Vital signs per facility protocol GI & NUTRITION: Continue nutritional support Aspirations precautions Prokinetic agents and laxatives as needed KIDNEYS & ELECTROLYTES: Strict monitoring of intake and output Daily weights Avoid nephrotoxic agents Monitor electrolytes and replace as needed Goal urine output of 30mL/hr or 0.5mL/kg/hr Medications to be dosed according to renal function. Avoid contrast if possible ENDOCRINE: Maintain blood glucose between 100-180 at all times. Insulin sliding scale for blood glucose management Hypoglycemia and hyperglycemia protocol in place INFECTIOUS DISEASE: Trend temperature, WBC and procalcitonin level Follow cultures, deescalate antibiotics as soon as possible. Panculture if new onset fever HEMATOLOGY & COAGULATION: Monitor H&H. Keep Hgb > 7 Transfuse 1 unit of PRBC for Hgb < 7 Transfuse 1 pack of platelets of platelets < 20, 000 Watch for any signs and symptoms of bleeding SKIN: Pressure ulcer prevention per facility protocol Specialty mattress as needed Case discussed with Dr. Bernal, above plan was formulated ADVANCED CARE PLANNING 1. Which of the following were discussed? Hospice Care - Yes / No Therapeutic options - Yes / No Advance Directives - Yes / No Other discussions - 2. Discussed with who? patient 3. Voluntary nature of this service was explained to the patient? Yes / No 4. Amount of time spent - 5. Reviewed by Physician? (if this service was performed by NPP) Yes / No ] ATTESTATION BY PHYSICIAN I have seen and examined the patient. I reviewed the documentation, medical decision making, and treatment plan as noted by the mid-level provider above. I agree with the findings and plan of care. SILVER BERNAL MD, [facility] Jul 15, 2024 12:05
[2024-07-15] MEDS ORDERED: [UNRECOGNIZED DRUG - REMARK] MISC SCH (12:30)
--- NOTE | 2024-07-15 13:39 | NUR ---
SPOKE TO DR DAVIS REGARDING CONSULT, PER MD PRESENTLY OUT OF TOWN AND WILL BE BACK ON 07/18/24
[2024-07-15] MEDS: nifeDIPine ER 30 MG TAB PO SCH (15:27)
[2024-07-15] MEDS ORDERED: 0.9% NACL 250ML 250 ML IV SCH (15:30)
--- NOTE | 2024-07-15 15:43 | NUR ---
TELEMONITORING PATIENT ADMITTED TO FLOOR WITH TELEMONITORING. PATIENT REFUSED. STATED DOES NOT WANT TO HAVE PACK HANGING HEAVILY DURING HIS STAY. STATES HAS BEEN OK WITH HIS HEART. EXPLAINED TO PATIENT REASONS FOR TELEMONITORING AND POSSIBLE COMPLICATIONS IF NOT MONITORING DUE TO HIS PRE-EXISTING CONDITIONS. PATIENT VOICED UNDERSTANDING, HOWEVER CONTINUED TO REFUSE. PROVIDER NOTIFIED. PATIENT SIGNED REFUSAL FORM. FILED IN CHART. NO NEW ORDERS GIVEN BY KINSEY RODRIGUEZ. WILL CONTINUE TO MONITOR.
[2024-07-15] MEDS: INSULIN humuLIN R 100 UNIT/ML 3ML SQ SCH (15:48)
[2024-07-15 16:00] VITALS: BP 172/97; PULSE 87; RESP 17; TEMP 97.9
[2024-07-15 20:00] VITALS: BP 163/75; PULSE 90; RESP 19; TEMP 98; O2SAT 93
[2024-07-15] MEDS: predniSONE 5 MG TABLET PO SCH (21:37)
[2024-07-15] MEDS: atorVAStatin 40 MG TABLET PO SCH (21:37)
[2024-07-15] MEDS: FAMOTIDINE 20MG VIAL IV SCH (21:37)
[2024-07-16] VITALS (7 sets, daily range): BP systolic 111–167; BP diastolic 56–91; PULSE 87–103; RESP 19; TEMP 97.8–98.4; O2SAT 94–99
[2024-07-16 04:59] LABS: HEMATOCRIT 27.8 % (42-54); MEAN CORPUSCULAR HEMOGLOBIN 30.2 pg (27.0-33.0); MEAN CORPUSCULAR HGB CONC 31.3 g/dL (32.0-36.0); MEAN CORPUSCULAR VOLUME 96.5 fL (79-99); RED BLOOD CELL COUNT(AUTO) 2.88 MIL/uL (4.50-6.20); RED CELL DISTRIBUTION WIDTH 15.9 % (11.0-15.5); WHITE BLOOD COUNT (AUTO) 11.3 K/uL (4.8-10.8)
[2024-07-16 05:21] LABS: ALBUMIN 1.9 g/dL (3.5-5.0); BILIRUBIN,TOTAL 0.5 mg/dL (0.2-1.0); CREATININE 6.2 mg/dL (0.5-1.3); POTASSIUM 4.7 mmol/L (3.5-5.1); TOTAL PROTEIN, SERUM 5.7 g/dL (6.0-8.3)
--- NOTE | 2024-07-16 09:16 | PN ---
[facility] PROGRESS NOTE Date of Service: Jul 16, 2024 Time of Service: 09:10 SUBJECTIVE: [59-year-old male with history of end-stage renal disease on dialysis Wednesday, status post right BKA back in May of 2024 who presented to the emergency department with right BKA stump bleeding, associated with redness and pain. Initial x-ray did not show displacement or fracture but did show diffuse soft tissue swelling, below-knee amputation changes are seen, no obvious erosive changes to suggest osteomyelitis. Patient is afebrile, WBCs downtrending today. We will await for further recommendations from orthopedic surgeon, Dr. Montes we will be back on the 18 of July. ] REVIEW OF SYSTEMS CONSTITUTIONAL: Denies fevers, chills, or night sweats. No unintentional weight loss reported. NEUROLOGICAL: Denies headache, amaurosis fugax, motor weakness, sensory deficit, vertigo/spinning sensation, gait abnormalities, or tremors. ENT: No hearing loss, otalgia, otorrhea, rhinitis, rhinorrhea, hoarseness, or sore throat. CARDIOVASCULAR: Denies any exertional angina, dyspnea on exertion, orthopnea, paroxysmal nocturnal dyspnea, palpitations, life-threatening arrhythmias, claudication. PULMONARY: Denies any shortness of breath, cough, phlegm/sputum, hemoptysis, pleuritic chest pain. SLEEP: Denies morning headaches, daytime somnolence or napping. Denies difficulty falling asleep, staying asleep, waking from sleep. Denies knowledge of snoring. GASTROINTESTINAL: Denies any type of dysphagia to either liquids or solids. Denies nausea, vomiting, pyrosis, early satiety, abdominal pain, diarrhea, constipation, or changes in stool consistency or caliber. Denies coffee-ground emesis, hematemesis, hematochezia, or melanotic stools. GENITOURINARY: Denies frequency, urgency, nocturia, hematuria or incontinence (Storage/Irritative symptoms.) Low urinary stream, straining to void, urinary intermittency or hesitancy, splitting of the voiding stream, terminal dribbling. ENDOCRINOLOGIC: Denies polyuria, polydipsia, polyphagia or heat/cold intolerances. HEMATOLOGIC: Denies thrombophilia/previous clots, or coagulopathy/bleeding dis orders. ONCOLOGIC: Denies personal history of malignancy. DERMATOLOGIC: Denies rashes or pruritus. PSYCHIATRIC: Denies any suicidal or homicidal ideation. Denies hallucinations. PHYSICAL EXAM GENERAL APPEARANCE: The patient is awake, alert, and oriented, in no acute cardiopulmonary distress. NEUROLOGICAL: Cranial nerves II-XII grossly intact. Motor is 5/5 in bilateral upper and lower extremities proximal to distal. No sensory deficits. HEENT: Face is symmetric. Pupils are equal and reactive. Extraocular movements are intact. NECK: Supple. No JVD. No thyromegaly. No submental, submandibular, pre- /postauricular, occipital or supraclavicular lymphadenopathy. CHEST: Normal chest expansion. No Telemetry. LUNGS: Absence of any rales, rhonchi or any wheezing. CARDIOVASCULAR: Regular. S1 and S2 normal. No appreciable rubs, murmurs or gallops. ABDOMEN: Soft, nontender, and nondistended. There is no rebound, voluntary guarding, or rigidity. : Deferred. No Hutson. EXTREMITIES: Non-edematous and not cyanotic. No clubbing. Good capillary refill. SKIN: No skin breakdown. Vital Signs (last 8hr) Date Time Temp Pulse Resp B/P (MAP) Pulse Ox O2 Delivery O2 Flow Rate FiO2 07/16/24 08:00 98.1 103 19 139/81 99 Room Air 07/16/24 04:00 98.4 87 19 157/91 98 Room Air LABS: Laboratory: Test 07/16/24 05:34 07/16/24 04:37 07/15/24 10:46 07/15/24 10:08 Range/Units Whole Blood Glucose 97 70-110 MG/DL White Blood Count 11.3 #H 4.8-10.8 K/uL Red Blood Count 2.88 L 4.50-6.20 MIL/uL Hemoglobin 8.7 L 14.0-18.0 g/dL Hematocrit 27.8 L 42-54 % Mean Corpuscular Volume 96.5 79-99 fL Mean Corpuscular Hemoglobin 30.2 27.0-33.0 pg Mean Corpuscular Hemoglobin Concent 31.3 L 32.0-36.0 g/dL Red Cell Distribution Width 15.9 H 11.0-15.5 % Platelet Count 219 130-400 K/uL Mean Platelet Volume 11.0 H 7.5-10.5 fL Nucleated Red Blood Cells 0.0 0.0-0.19 % Sodium Level 144 136-145 mmol/L Potassium Level 4.7 3.5-5.1 mmol/L Chloride Level 105 101-111 mmol/L Carbon Dioxide Level 27 21-32 mmol/L Blood Urea Nitrogen 55 H 7-18 mg/dL Creatinine 6.2 H 0.5-1.3 mg/dL Glomerular Filtration Rate Calc 10 >90 mL/min Random Glucose 105 70-105 mg/dL Total Calcium 8.2 L 8.5-10.1 mg/dL Total Bilirubin 0.5 0.2-1.0 mg/dL Aspartate Amino Transf (AST/SGOT) 12 10-37 U/L Alanine Aminotransferase (ALT/SGPT) 12 12-78 U/L Alkaline Phosphatase 87 50-136 U/L Total Protein 5.7 L 6.0-8.3 g/dL Albumin 1.9 L 3.5-5.0 g/dL Lactic Acid Level 1.5 0.8-2.5 mmol/L Total Creatine Kinase 14 #L 21-232 U/L Troponin I High Sensitivity 19 4-75 ng/L C-Reactive Protein, Quantitative 250.20 H 0.5-3.0 mg/L Immature Granulocyte % (Auto) 1.2 H 0-1 % Neutrophils (%) (Auto) 82.6 H 40.0-77.0 % Lymphocytes (%) (Auto) 9.8 L 21.0-51.0 % Monocytes (%) (Auto) 5.6 3.0-13.0 % Eosinophils (%) (Auto) 0.5 0.0-8.0 % Basophils (%) (Auto) 0.3 0.0-5.0 % Neutrophils # (Auto) 12.6 H 1.8-7.7 K/uL Lymphocytes # (Auto) 1.5 1.0-4.8 K/uL Monocytes # (Auto) 0.9 0.1-1.0 K/uL Eosinophils # (Auto) 0.07 0.00-0.70 K/uL Basophils # (Auto) 0.04 0.00-0.20 K/uL Absolute Immature Granulocyte (auto 0.18 0-1 K/uL White Cell Morphology Comment See comments Erythrocyte Sedimentation Rate 67 H 0-20 MM/HR Current Medications Medications (Trade) Dose Ordered Sig/Idania Route PRN Reason Start Time Stop Time Status Last Admin Dose Admin Acetaminophen (TYLenol 325MG TAB) 650 mg Q4H PRN PO TEMPERATURE GREATER THAN 101.5 07/15/24 12:00 08/14/24 11:59 Acetaminophen (TYLenol 325MG TAB) 650 mg Q6H PRN PO MILD PAIN (1-3) 07/15/24 12:00 08/14/24 11:59 Atorvastatin Calcium (LIPItor 40MG) 40 mg HS PO 07/15/24 21:00 08/14/24 20:59 07/15/24 21:37 40 MG Dextrose (D50w) 50 ml AD PRN IV HYPOGLYCEMIA PROTOCOL 07/15/24 12:00 08/14/24 11:59 Famotidine (Pepcid 20mg Vial) 20 mg Q48H IV 07/15/24 21:00 08/14/24 20:59 07/15/24 21:37 20 MG Glucagon (Glucagon 1mg Kit) 1 mg AD PRN IM HYPOGLYCEMIA PROTOCOL 07/15/24 12:00 08/14/24 11:59 Hydromorphone HCl (DiLAUDid 1MG INJ) 1 mg Q4H PRN IVP SEVERE PAIN (7-10) 07/15/24 15:30 07/20/24 15:29 Hydromorphone HCl (DiLAUDid 2MG INJ) 2 mg Q4H PRN IVP SEVERE PAIN (7-10) 07/15/24 12:00 07/20/24 11:59 Insulin Human Regular (humuLIN R 100 UNIT/ML 3ML) INSULIN SLIDING SCAL... ACHS SQ 07/15/24 16:30 08/14/24 16:29 Magnesium Sulfate 50 ml @ 0 mls/hr PROTOCOL PRN IV MAGNESIUM PROTOCOL 07/15/24 12:00 08/14/24 11:59 Nifedipine (adALAT 30MG) 60 mg DAILY PO 07/15/24 15:30 08/14/24 15:29 07/15/24 15:27 60 MG Ondansetron HCl (zoFRAN 4MG INJ) 4 mg Q6H PRN IVP NAUSEA/VOMITING 07/15/24 12:00 08/14/24 11:59 Pharmacy Profile Note (Pharmacy Communication) PLEASE PROVIDE DIALY... Q30MIN MISC 07/15/24 12:30 07/15/24 15:13 DC Potassium Chloride 100 ml @ 100 mls/hr AD PRN IV POTASSIUM PROTOCOL 07/15/24 12:00 08/14/24 11:59 Potassium Chloride (K-Dur/Klor-Con 20meq) 10 meq AD PRN PO POTASSIUM PROTOCOL 07/15/24 12:00 08/14/24 11:59 Potassium Chloride (KCl 10% Elixir 20meq/15ml) 10 meq AD PRN PO POTASSIUM PROTOCOL 07/15/24 12:00 08/14/24 11:59 Prednisone (deltaSONE/ oraSONE 5MG) 5 mg BID PO 07/15/24 21:00 08/14/24 20:59 07/15/24 21:37 5 MG Sodium Chloride 250 ml @ 125 mls/hr AD IV 07/15/24 15:30 08/14/24 15:29 Vancomycin HCl (Vancomycin 750mg) 750 mg MWFPHD IVPB 07/17/24 16:00 07/27/24 15:59 Vancomycin HCl (Vancomycin Protocol) 1 each AD IV 07/15/24 10:00 07/29/24 09:59 DIAGNOSTICS / RADIOLOGY: [ ] ASSESSMENT: [Suspected infection to the right stump, POA Cellulitis, POA Right BKA, POA End-stage renal disease, on dialysis POA Hyperglycemia with diabetes mellitus, POA Leukocytosis, POA Chronic anemia, POA ] PLAN: Continue with medical admission, patient refused telemetry monitoring Continue with renal diet Continue IV antibiotics with vancomycin renally dose We will follow up with Dr. Vizcaino for IV antibiotic stewardship We will order bone scan to the right stump to rule out osteomyelitis Follow up with Nephrology regarding inpatient hemodialysis management Dr. Montes for further recommendation, ED noted that he is currently out of town and will be back on 07/18/2024 GI and DVT prophylaxis We will check electrolytes and replete as necessary We will repeat labs tomorrow Treatment plan discussed with patient and family at the bedside Medications to be reconciled once obtained by patient and/or family and available to be reconciled in computer P.r.n. medication for pain nausea and vomiting Questions were answered We will continue to monitor the patient closely [employer] for disposition Rehab: PT/OT/ST GI: PPI DVT: SCD's Code Status: Full Resuscitation Disposition: TBD Prognosis: Guarded NEURO: Minimize central acting medications as possible. Fall Precautions. Well lighted room through the day and minimize interruptions through the night to prevent acute delirium. PULMONARY: Supplemental 02 as needed BiPAP as necessary, for respiratory distress Titrate Fio2 to keep Spo2 > or = 90% DuoNebs and CPT as needed IS hourly while awake for pulmonary hygiene Out of bed to chair as tolerated VAP Bundle Maintain aspiration precautions at all times CARDIOVASCULAR: Follow hemodynamics. Vital signs per facility protocol GI & NUTRITION: Continue nutritional support Aspirations precautions Prokinetic agents and laxatives as needed KIDNEYS & ELECTROLYTES: Strict monitoring of intake and output Daily weights Avoid nephrotoxic agents Monitor electrolytes and replace as needed Goal urine output of 30mL/hr or 0.5mL/kg/hr Medications to be dosed according to renal function. Avoid contrast if possible ENDOCRINE: Maintain blood glucose between 100-180 at all times. Insulin sliding scale for blood glucose management Hypoglycemia and hyperglycemia protocol in place INFECTIOUS DISEASE: Trend temperature, WBC and procalcitonin level Follow cultures, deescalate antibiotics as soon as possible. Panculture if new onset fever HEMATOLOGY & COAGULATION: Monitor H&H. Keep Hgb > 7 Transfuse 1 unit of PRBC for Hgb < 7 Transfuse 1 pack of platelets of platelets < 20, 000 Watch for any signs and symptoms of bleeding SKIN: Pressure ulcer prevention per facility protocol Specialty mattress as needed Case discussed with Dr. Bernal, above plan was formulated ADVANCED CARE PLANNING 1. Which of the following were discussed? Hospice Care - Yes / No Therapeutic options - Yes / No Advance Directives - Yes / No Other discussions - 2. Discussed with who? patient 3. Voluntary nature of this service was explained to the patient? Yes / No 4. Amount of time spent - 5. Reviewed by Physician? (if this service was performed by NPP) Yes / No ] ATTESTATION BY PHYSICIAN I have seen and examined the patient. I reviewed the documentation, medical decision making, and treatment plan as noted by the mid-level provider above. I agree with the findings and plan of care. Jennifer Huang MD, JANICE B AGPCNP Jul 16, 2024 09:16
[2024-07-16] MEDS: hydroMORPHone 2 MG VIAL (2MG/ML) IVP PRN (09:17)
--- NOTE | 2024-07-16 18:24 | NUR ---
INITIAL/DCP HOME Met w pt and spouse this afternoon to discuss dcp. Demographics confirmed. EC spouse Galina Mcfarland [phone]. PCP Dr Jean Claude Jones. Preferred [facility]. Pt lives w his at home. He is [place] and uses a sliding board for transfers. He is independent w ADLs and states that he is still working and able to drive himself to work. He was receiving HH services from [facility]. He completes HD @ home w the assistance of his thru [facility]. Pt mentions that discharge goal is to return home as soon as possible dt having to return to work as he is out of sick time. Addendum: 07/17/24 at 1828 by MARC BYERS CM Amended: Links added.
--- NOTE | 2024-07-16 18:54 | NUR ---
Patient refused 3 phase bone scan due to claustrophobia, anxiety and LBP;
[2024-07-16] MEDS: hydroMORPHone 1 MG INJ IVP PRN (22:09)
--- NOTE | 2024-07-16 22:10 | CONS ---
REASON FOR CONSULTATION: Management of end-stage renal disease. HISTORY OF PRESENT ILLNESS: The patient a 59-year-old male with a history of end-stage renal disease. He is at home hemodialysis on MWF, diabetes mellitus type 2, hypertension, anemia of chronic kidney disease, peripheral arterial disease, dyslipidemia. The patient being admitted with right stump infection. He had previous below-knee amputation. The patient denies fever or chills. PAST MEDICAL HISTORY: As outlined in history of present illness. FAMILY HISTORY: Noncontributory to this admission. SOCIAL HISTORY: No history of alcohol abuse or smoking. REVIEW OF SYSTEMS: Unable to ambulate due to previous amputation. No fever or chills. The patient offers no other complaints. HOME MEDICATIONS: Reviewed. ALLERGIES: THERE IS ALLERGY TO PENICILLIN AND SULFAS. PHYSICAL EXAMINATION: GENERAL: Reveals a pleasant male in no major acute distress. VITAL SIGNS: Blood pressure 116/71, respirations 18, pulse 99, temperature 97.9. HEENT: Head is normocephalic. NECK: Supple. No JVD. Trachea central. LUNGS: Clear to auscultation and inspection. HEART: Normal cardiac sound. ABDOMEN: Soft, nondistended. EXTREMITIES: Right lower extremity below-knee amputation. Left lower extremity, no edema or cyanosis. SKIN: No rashes or ecchymosis. PSYCHIATRIC: The patient is awake, alert to time, person and place. NEUROLOGIC: Cranial nerves are grossly intact. No focal motor or sensory deficits. LABORATORY DATA: WBC count 15.2, hemoglobin 9.6. Sodium 144, potassium 4.7, BUN 55, creatinine 6.2. ASSESSMENT: 1. End-stage renal disease. Dialysis Wednesday, Wednesday, and Wednesday. The patient is at home dialysis program. 2. Diabetes mellitus type 2 with nephropathy with fairly controlled glycemia. 3. Hypertension with renal manifestation with controlled blood pressure. 4. Anemia of chronic kidney disease. We will continue Epogen. 5. Severe protein calorie malnutrition with an albumin of 1.9. 6. Obesity with history of leg amputation. 7. Peripheral arterial disease and infection. 8. Right stump surgical wound infection. PLAN: Continue renal diet. Resume home medications. Antimicrobials to be adjusted to end-stage renal disease stage. The dialysis will continue on MWF. Encourage nutrition. TID: [id number] RECEIPT: [id number]
[2024-07-17] VITALS (24 sets, daily range): BP systolic 92–143; BP diastolic 46–77; PULSE 86–99; RESP 14–20; TEMP 97.5–98.4; O2SAT 97–98
[2024-07-17] MEDS ORDERED: PoTASSium chloRIDE 10MEQ SR 10 MEQ/TAB TAB.SR.24H PO PRN (11:30)
[2024-07-17] MEDS: ALBUMIN (HUMAN) 25% 50 ML IV.SOLN. IV SCH (11:30)
[2024-07-17 11:56] LABS: HEMATOCRIT 25.2 % (42-54); MEAN CORPUSCULAR HEMOGLOBIN 30.2 pg (27.0-33.0); MEAN CORPUSCULAR HGB CONC 31.7 g/dL (32.0-36.0); MEAN CORPUSCULAR VOLUME 95.1 fL (79-99); RED BLOOD CELL COUNT(AUTO) 2.65 MIL/uL (4.50-6.20); RED CELL DISTRIBUTION WIDTH 15.6 % (11.0-15.5); WHITE BLOOD COUNT (AUTO) 14.3 K/uL (4.8-10.8)
[2024-07-17 12:07] LABS: CREATININE 7.7 mg/dL (0.5-1.3); POTASSIUM 5.3 mmol/L (3.5-5.1)
[2024-07-17] MEDS: 0.9%NACL 1000ML 1,000 ML IV SCH (12:29)
--- NOTE | 2024-07-17 12:34 | PN ---
[facility] PROGRESS NOTE Date of Service: Jul 17, 2024 Time of Service: 12:31 SUBJECTIVE: [59-year-old male with history of end-stage renal disease on dialysis Wednesday, status post right BKA back in May of 2024 who presented to the emergency department with right BKA stump bleeding, associated with redness and pain. Initial x-ray did not show displacement or fracture but did show diffuse soft tissue swelling, below-knee amputation changes are seen, no obvious erosive changes to suggest osteomyelitis. Patient is afebrile, WBCs downtrending today. We will await for further recommendations from orthopedic surgeon, Dr. Montes we will be back on the 18 of July. ] REVIEW OF SYSTEMS CONSTITUTIONAL: Denies fevers, chills, or night sweats. No unintentional weight loss reported. NEUROLOGICAL: Denies headache, amaurosis fugax, motor weakness, sensory deficit, vertigo/spinning sensation, gait abnormalities, or tremors. ENT: No hearing loss, otalgia, otorrhea, rhinitis, rhinorrhea, hoarseness, or sore throat. CARDIOVASCULAR: Denies any exertional angina, dyspnea on exertion, orthopnea, paroxysmal nocturnal dyspnea, palpitations, life-threatening arrhythmias, claudication. PULMONARY: Denies any shortness of breath, cough, phlegm/sputum, hemoptysis, pleuritic chest pain. SLEEP: Denies morning headaches, daytime somnolence or napping. Denies difficulty falling asleep, staying asleep, waking from sleep. Denies knowledge of snoring. GASTROINTESTINAL: Denies any type of dysphagia to either liquids or solids. Denies nausea, vomiting, pyrosis, early satiety, abdominal pain, diarrhea, constipation, or changes in stool consistency or caliber. Denies coffee-ground emesis, hematemesis, hematochezia, or melanotic stools. GENITOURINARY: Denies frequency, urgency, nocturia, hematuria or incontinence (Storage/Irritative symptoms.) Low urinary stream, straining to void, urinary intermittency or hesitancy, splitting of the voiding stream, terminal dribbling. ENDOCRINOLOGIC: Denies polyuria, polydipsia, polyphagia or heat/cold intolerances. HEMATOLOGIC: Denies thrombophilia/previous clots, or coagulopathy/bleeding dis orders. ONCOLOGIC: Denies personal history of malignancy. DERMATOLOGIC: Denies rashes or pruritus. PSYCHIATRIC: Denies any suicidal or homicidal ideation. Denies hallucinations. PHYSICAL EXAM GENERAL APPEARANCE: The patient is awake, alert, and oriented, in no acute cardiopulmonary distress. NEUROLOGICAL: Cranial nerves II-XII grossly intact. Motor is 5/5 in bilateral upper and lower extremities proximal to distal. No sensory deficits. HEENT: Face is symmetric. Pupils are equal and reactive. Extraocular movements are intact. NECK: Supple. No JVD. No thyromegaly. No submental, submandibular, pre- /postauricular, occipital or supraclavicular lymphadenopathy. CHEST: Normal chest expansion. No Telemetry. LUNGS: Absence of any rales, rhonchi or any wheezing. CARDIOVASCULAR: Regular. S1 and S2 normal. No appreciable rubs, murmurs or gallops. ABDOMEN: Soft, nontender, and nondistended. There is no rebound, voluntary guarding, or rigidity. : Deferred. No Hutson. EXTREMITIES: Non-edematous and not cyanotic. No clubbing. Good capillary refill. SKIN: No skin breakdown. Vital Signs (last 8hr) Date Time Temp Pulse Resp B/P (MAP) Pulse Ox O2 Delivery O2 Flow Rate FiO2 07/17/24 11:48 98.2 92 20 121/57 98 Room Air 07/17/24 11:00 98.1 88 14 127/64 Room Air 07/17/24 07:54 98.4 93 16 113/67 98 Room Air LABS: Laboratory: Test 07/17/24 11:42 07/17/24 11:06 07/16/24 04:37 Range/Units White Blood Count 14.3 H 4.8-10.8 K/uL Red Blood Count 2.65 L 4.50-6.20 MIL/uL Hemoglobin 8.0 L 14.0-18.0 g/dL Hematocrit 25.2 L 42-54 % Mean Corpuscular Volume 95.1 79-99 fL Mean Corpuscular Hemoglobin 30.2 27.0-33.0 pg Mean Corpuscular Hemoglobin Concent 31.7 L 32.0-36.0 g/dL Red Cell Distribution Width 15.6 H 11.0-15.5 % Platelet Count 274 # 130-400 K/uL Mean Platelet Volume 11.0 H 7.5-10.5 fL Nucleated Red Blood Cells 0.0 0.0-0.19 % Sodium Level 137 136-145 mmol/L Potassium Level 5.3 H 3.5-5.1 mmol/L Chloride Level 104 101-111 mmol/L Carbon Dioxide Level 25 21-32 mmol/L Blood Urea Nitrogen 73 H 7-18 mg/dL Creatinine 7.7 H 0.5-1.3 mg/dL Glomerular Filtration Rate Calc 7 >90 mL/min Random Glucose 215 H 70-105 mg/dL Total Calcium 8.0 L 8.5-10.1 mg/dL Whole Blood Glucose 189 H 70-110 MG/DL Bedside Glucose Comment Notified Nurse Total Bilirubin 0.5 0.2-1.0 mg/dL Aspartate Amino Transf (AST/SGOT) 12 10-37 U/L Alanine Aminotransferase (ALT/SGPT) 12 12-78 U/L Alkaline Phosphatase 87 50-136 U/L Total Protein 5.7 L 6.0-8.3 g/dL Albumin 1.9 L 3.5-5.0 g/dL Current Medications Medications (Trade) Dose Ordered Sig/Idania Route PRN Reason Start Time Stop Time Status Last Admin Dose Admin Acetaminophen (TYLenol 325MG TAB) 650 mg Q4H PRN PO TEMPERATURE GREATER THAN 101.5 07/15/24 12:00 08/14/24 11:59 Acetaminophen (TYLenol 325MG TAB) 650 mg Q6H PRN PO MILD PAIN (1-3) 07/15/24 12:00 08/14/24 11:59 Albumin Human (Albumin (Human) 25%) 100 ml ONCE IV 07/17/24 11:30 07/18/24 11:29 Atorvastatin Calcium (LIPItor 40MG) 40 mg HS PO 07/15/24 21:00 08/14/24 20:59 07/16/24 20:31 40 MG Dextrose (D50w) 50 ml AD PRN IV HYPOGLYCEMIA PROTOCOL 07/15/24 12:00 08/14/24 11:59 Famotidine (Pepcid 20mg Vial) 20 mg Q48H IV 07/15/24 21:00 08/14/24 20:59 07/15/24 21:37 20 MG Glucagon (Glucagon 1mg Kit) 1 mg AD PRN IM HYPOGLYCEMIA PROTOCOL 07/15/24 12:00 08/14/24 11:59 Heparin Sodium (Porcine) (HEParin 5,000 UNIT VIAL) 10,000 unit AD IRRIG 07/17/24 11:30 08/16/24 11:29 Hydromorphone HCl (DiLAUDid 1MG INJ) 1 mg Q4H PRN IVP SEVERE PAIN (7-10) 07/15/24 15:30 07/20/24 15:07/16/24 22:09 1 MG Hydromorphone HCl (DiLAUDid 2MG INJ) 2 mg Q4H PRN IVP SEVERE PAIN (7-10) 07/15/24 12:00 07/17/24 10:58 DC 07/16/24 09:17 2 MG Insulin Human Regular (humuLIN R 100 UNIT/ML 3ML) INSULIN SLIDING SCAL... ACHS SQ 07/15/24 16:30 08/14/24 16:07/17/24 07:15 3 UNIT Magnesium Sulfate 50 ml @ 0 mls/hr PROTOCOL PRN IV MAGNESIUM PROTOCOL 07/15/24 12:00 08/14/24 11:59 Nifedipine (adALAT 30MG) 60 mg DAILY PO 07/15/24 15:30 08/14/24 15:29 07/16/24 09:16 60 MG Ondansetron HCl (zoFRAN 4MG INJ) 4 mg Q6H PRN IVP NAUSEA/VOMITING 07/15/24 12:00 08/14/24 11:59 Pharmacy Profile Note (Pharmacy Communication) PLEASE PROVIDE DIALY... Q30MIN MISC 07/15/24 12:30 07/15/24 15:13 DC Potassium Chloride 100 ml @ 100 mls/hr AD PRN IV POTASSIUM PROTOCOL 07/15/24 12:00 08/14/24 11:59 Potassium Chloride (K-Dur 10meq Sr Tab) 10 meq AD PRN PO POTASSIUM PROTOCOL 07/17/24 11:30 08/14/24 11:59 Potassium Chloride (K-Dur/Klor-Con 20meq) 10 meq AD PRN PO POTASSIUM PROTOCOL 07/15/24 12:00 07/17/24 11:01 DC Potassium Chloride (KCl 10% Elixir 20meq/15ml) 10 meq AD PRN PO POTASSIUM PROTOCOL 07/15/24 12:00 08/14/24 11:59 Prednisone (deltaSONE/ oraSONE 5MG) 5 mg BID PO 07/15/24 21:00 08/14/24 20:59 07/17/24 09:17 5 MG Sodium Chloride 250 ml @ 125 mls/hr AD IV 07/15/24 15:30 07/17/24 10:58 DC Sodium Chloride 1,000 ml @ 0 mls/hr ONCE IV 07/17/24 11:30 08/16/24 11:29 07/17/24 12:29 100 MLS/HR Vancomycin HCl (Vancomycin 750mg) 750 mg MWFPHD IVPB 07/17/24 16:00 07/27/24 15:59 Vancomycin HCl (Vancomycin Protocol) 1 each AD IV 07/15/24 10:00 07/29/24 09:59 DIAGNOSTICS / RADIOLOGY: [ ] ASSESSMENT: [Suspected infection to the right stump, POA Cellulitis, POA Right BKA, POA End-stage renal disease, on dialysis POA Hyperglycemia with diabetes mellitus, POA Leukocytosis, POA Chronic anemia, POA ] PLAN: Continue with medical admission, patient refused telemetry monitoring Continue with renal diet Continue IV antibiotics with vancomycin renally dose We will follow up with Dr. Vizcaino for IV antibiotic stewardship We will order bone scan to the right stump to rule out osteomyelitis Follow up with Nephrology regarding inpatient hemodialysis management Dr. Montes for further recommendation, ED noted that he is currently out of town and will be back on 07/18/2024 GI and DVT prophylaxis We will check electrolytes and replete as necessary We will repeat labs tomorrow Treatment plan discussed with patient and family at the bedside Medications to be reconciled once obtained by patient and/or family and available to be reconciled in computer P.r.n. medication for pain nausea and vomiting Questions were answered We will continue to monitor the patient closely Linoleum Layer for disposition Rehab: PT/OT/ST GI: PPI DVT: SCD's Code Status: Full Resuscitation Disposition: TBD Prognosis: Guarded NEURO: Minimize central acting medications as possible. Fall Precautions. Well lighted room through the day and minimize interruptions through the night to prevent acute delirium. PULMONARY: Supplemental 02 as needed BiPAP as necessary, for respiratory distress Titrate Fio2 to keep Spo2 > or = 90% DuoNebs and CPT as needed IS hourly while awake for pulmonary hygiene Out of bed to chair as tolerated VAP Bundle Maintain aspiration precautions at all times CARDIOVASCULAR: Follow hemodynamics. Vital signs per facility protocol GI & NUTRITION: Continue nutritional support Aspirations precautions Prokinetic agents and laxatives as needed KIDNEYS & ELECTROLYTES: Strict monitoring of intake and output Daily weights Avoid nephrotoxic agents Monitor electrolytes and replace as needed Goal urine output of 30mL/hr or 0.5mL/kg/hr Medications to be dosed according to renal function. Avoid contrast if possible ENDOCRINE: Maintain blood glucose between 100-180 at all times. Insulin sliding scale for blood glucose management Hypoglycemia and hyperglycemia protocol in place INFECTIOUS DISEASE: Trend temperature, WBC and procalcitonin level Follow cultures, deescalate antibiotics as soon as possible. Panculture if new onset fever HEMATOLOGY & COAGULATION: Monitor H&H. Keep Hgb > 7 Transfuse 1 unit of PRBC for Hgb < 7 Transfuse 1 pack of platelets of platelets < 20, 000 Watch for any signs and symptoms of bleeding SKIN: Pressure ulcer prevention per facility protocol Specialty mattress as needed Case discussed with Dr. Bernal, above plan was formulated ADVANCED CARE PLANNING 1. Which of the following were discussed? Hospice Care - Yes / No Therapeutic options - Yes / No Advance Directives - Yes / No Other discussions - 2. Discussed with who? patient 3. Voluntary nature of this service was explained to the patient? Yes / No 4. Amount of time spent - 5. Reviewed by Physician? (if this service was performed by NPP) Yes / No ] ATTESTATION BY PHYSICIAN I have seen and examined the patient. I reviewed the documentation, medical decision making, and treatment plan as noted by the mid-level provider above. I agree with the findings and plan of care. Jennifer Huang MD, [facility] Jul 17, 2024 12:34
--- NOTE | 2024-07-17 13:26 | PN ---
PROGRESS NOTE Date of Service: Jul 17, 2024 Time of Service: 13:23 SUBJECTIVE: No new concerns, HD today. Denies fever chills and pain, Examined at bedside. REVIEW OF SYSTEMS CONSTITUTIONAL: Denies fever, chills, or fatigue. HEAD/FACE: No signs of trauma. EENT: Denies eye pain, blurred vision, double vision, or light sensitivity. RESPIRATORY: Denies shortness of breath, cough, wheezing CARDIOVASCULAR: Denies chest pain, palpitation, syncope GASTROINTESTINAL/ABDOMINAL: Denies abdominal pain, constipation, diarrhea, nausea or vomiting GENITOURINARY: Denies dysuria or hematuria. MUSCULOSKELETAL: Denies joint pain, tenderness, or trauma. INTEGUMENTARY: Denies rash or itchiness NEUROLOGICAL/PSYCH: Denies anxiety, depression, heat or cold intolerance. PHYSICAL EXAM EYES: Anicteric. Pupils equal and reactive. HENT: No oral thrush seen, moist Oral mucosa NECK: Supple, no JVD or thyromegaly. LUNGS: Good air entry. No rales, no rhonchi. CARDIOVASCULAR: S1, S2 regular. No murmur heard. ABDOMEN: Soft, non tender, bowel sounds present, no organomegaly CENTRAL NERVOUS SYSTEM: Awake, alert, oriented x 3. No focal deficits. SKIN: No rashes, no swelling. LYMPHATICS: No peripheral lymphadenopathy MUSCULOSKELETAL: No joint swelling, erythema or tenderness. EXTREMITIES: No cyanosis or clubbing BACK: No deformity, no pressure ulcer. GENITOURINARY: No dysuria or hematuria Vital Signs (last 8hr) Date Time Temp Pulse Resp B/P (MAP) Pulse Ox O2 Delivery O2 Flow Rate FiO2 07/17/24 11:48 98.2 92 20 121/57 98 Room Air 07/17/24 11:00 98.1 88 14 127/64 Room Air 07/17/24 07:54 98.4 93 16 113/67 98 Room Air LABS: Laboratory: Test 07/17/24 11:42 07/17/24 11:06 07/16/24 04:37 Range/Units White Blood Count 14.3 H 4.8-10.8 K/uL Red Blood Count 2.65 L 4.50-6.20 MIL/uL Hemoglobin 8.0 L 14.0-18.0 g/dL Hematocrit 25.2 L 42-54 % Mean Corpuscular Volume 95.1 79-99 fL Mean Corpuscular Hemoglobin 30.2 27.0-33.0 pg Mean Corpuscular Hemoglobin Concent 31.7 L 32.0-36.0 g/dL Red Cell Distribution Width 15.6 H 11.0-15.5 % Platelet Count 274 # 130-400 K/uL Mean Platelet Volume 11.0 H 7.5-10.5 fL Nucleated Red Blood Cells 0.0 0.0-0.19 % Sodium Level 137 136-145 mmol/L Potassium Level 5.3 H 3.5-5.1 mmol/L Chloride Level 104 101-111 mmol/L Carbon Dioxide Level 25 21-32 mmol/L Blood Urea Nitrogen 73 H 7-18 mg/dL Creatinine 7.7 H 0.5-1.3 mg/dL Glomerular Filtration Rate Calc 7 >90 mL/min Random Glucose 215 H 70-105 mg/dL Total Calcium 8.0 L 8.5-10.1 mg/dL Whole Blood Glucose 189 H 70-110 MG/DL Bedside Glucose Comment Notified Nurse Total Bilirubin 0.5 0.2-1.0 mg/dL Aspartate Amino Transf (AST/SGOT) 12 10-37 U/L Alanine Aminotransferase (ALT/SGPT) 12 12-78 U/L Alkaline Phosphatase 87 50-136 U/L Total Protein 5.7 L 6.0-8.3 g/dL Albumin 1.9 L 3.5-5.0 g/dL DIAGNOSTICS / RADIOLOGY: [ ] ASSESSMENT: 1. End-stage renal disease. Dialysis Wednesday, Wednesday, and Wednesday. The patient is at home dialysis program. 2. Diabetes mellitus type 2 with nephropathy with fairly controlled glycemia. 3. Hypertension with renal manifestation with controlled blood pressure. 4. Anemia of chronic kidney disease. We will continue Epogen. 5. Severe protein calorie malnutrition with an albumin of 1.9. 6. Obesity with history of leg amputation. 7. Peripheral arterial disease and infection. 8. Right stump surgical wound infection. PLAN: Continue Antimicrobials dialysis today will continue on MWF. Monitor Nutritional intake, renal diet Fluid restriction 1L QD Monitor Electrolytes Monitor BP LALITHA KOCH Jul 17, 2024 13:26
--- NOTE | 2024-07-17 15:20 | NUR ---
[facility] Consult: Patient assessed by wound healing team. See wound assessment. Assessment and recommendations provided to primary nurse. Education provided. Addendum: 07/18/24 at 1622 by JONATHAN OVIEDO RN RN/ Amended: Links added.
[2024-07-17] MEDS: HEParin 5,000 UNIT VIAL IRRIG SCH (15:26)
--- NOTE | 2024-07-17 17:04 | CONS ---
CONSULTATION NOTE Date of Service: Jul 17, 2024 Reason for Consultation: Dehisced surgical wound on the right BKA stump. Requesting Physician: Hospitalist team HISTORY OF PRESENT ILLNESS: 59 year old his medical history of ESRD on dialysis Wednesday, diabetes mellitus, hypertension, peripheral arterial disease, hyperlipidemia, history of chronic diabetic foot ulcer of the right heel being followed by Podiatry, status post right BKA with Dr. Arevalo on 05/30/2024. Patient stated that about a week ago they remove the suture as stump has been healing better. He stated that he must have scratch on it and that is when it started to show redness and pain. He presented to the emergency department due to continues redness and pain. He denies fever chills body aches. Dr. Wallace, ER physician reported that he palpated the right lower extremity and noted increased drainage. Vital signs showed temperature of 98.1, pulse 84, respiratory rate 16, BP 169/82, pulse oximetry 99% on room air. Labs reviewed, WBC 15.2, left shift noted. BUN 50, creatinine 5.4, GFR , random glucose 116, total calcium 8.3, total creatinine kinase 14, CRP 250.20. Right tibia and fibula x-ray showed no displaced fracture or dislocation seen. Correlate clinically. Diffuse soft tissue swelling. [id number] amputation changes are seen. There is no obvious erosive changes to suggest osteomyelitis. Dense vascular calcification are noted. Patient received IV antibiotics with vancomycin, renally dose in the emergency department. Patient was referred to the hospitalist for further evaluation and management. ] 07/17/2024. This is a 59-year-old male with history of multiple comorbidities seen at the bedside for initial wound care evaluation and manage ment of partially dehisced surgical wound on the right BKA stump, the wound is not deep, no periwound erythema, no purulent drainage, no sign of obvious infection. Patient currently on IV antibiotic therapy white blood cell count is normal today. Wound care as per orders. Follow-up after discharge. REVIEW OF SYSTEMS CONSTITUTIONAL: Denies fever, chills, or fatigue. HEAD/FACE: No signs of trauma. EENT: Denies eye pain, blurred vision, double vision, or light sensitivity. RESPIRATORY: Denies shortness of breath, cough, wheezing CARDIOVASCULAR: Denies chest pain, palpitation, syncope GASTROINTESTINAL/ABDOMINAL: Denies abdominal pain, constipation, diarrhea, nausea or vomiting GENITOURINARY: Denies dysuria or hematuria. MUSCULOSKELETAL: Denies joint pain, tenderness, or trauma. INTEGUMENTARY: Denies rash or itchiness NEUROLOGICAL/PSYCH: Denies anxiety, depression, heat or cold intolerance. PAST MEDICAL HISTORY: [ ESRD, hypertension, hyperlipidemia, diabetes mellitus type 2, peripheral arter ial disease, psoriasis ] PAST SURGICAL HISTORY: [ Multiple AV graft, cholecystectomy, neck, wrist surgery, right BKA ] PAST SOCIAL HISTORY: [Patient denies tobacco, alcohol illicit drug use. ] FAMILY HISTORY: [Diabetes mellitus ] Coded Allergies: Penicillins (Unverified Allergy, Unknown, 01/14/24) Sulfa (Sulfonamide Antibiotics) (Unverified Allergy, Unknown, 01/14/24) Coded Allergies: Penicillins (Unverified Allergy, Unknown, 01/14/24) Sulfa (Sulfonamide Antibiotics) (Unverified Allergy, Unknown, 01/14/24) PHYSICAL EXAM EYES: Anicteric. Pupils equal and reactive. HENT: No oral thrush seen, moist Oral mucosa NECK: Supple, no JVD or thyromegaly. LUNGS: Good air entry. No rales, no rhonchi. CARDIOVASCULAR: S1, S2 regular. No murmur heard. ABDOMEN: Soft, non tender, bowel sounds present, no organomegaly CENTRAL NERVOUS SYSTEM: Awake, alert, oriented x 3. No focal deficits. SKIN: Partially dehisced surgical wound in the right BKA stump, no drainage, no sign of obvious infection. LYMPHATICS: No peripheral lymphadenopathy MUSCULOSKELETAL: No joint swelling, erythema or tenderness. EXTREMITIES: No cyanosis or clubbing BACK: No deformity, no pressure ulcer. GENITOURINARY: No dysuria or hematuria Vital Sign (Last 24 Hours) 07/17/24 07/17/24 08:00 16:22 Temp 97.5 Pulse 90 Resp 16 B/P (MAP) 129/68 Pulse Ox 99 O2 Delivery Room Air O2 Flow Rate 0 FiO2 21 Intake & Output (last 24hrs) 07/16/24 07/16/24 07/17/24 15:00 23:00 07:00 Intake Total 500 ml 250 ml Balance 500 ml 250 ml LABS: Laboratory: Test 07/17/24 11:42 07/17/24 11:06 07/16/24 04:37 Range/Units White Blood Count 14.3 H 4.8-10.8 K/uL Red Blood Count 2.65 L 4.50-6.20 MIL/uL Hemoglobin 8.0 L 14.0-18.0 g/dL Hematocrit 25.2 L 42-54 % Mean Corpuscular Volume 95.1 79-99 fL Mean Corpuscular Hemoglobin 30.2 27.0-33.0 pg Mean Corpuscular Hemoglobin Concent 31.7 L 32.0-36.0 g/dL Red Cell Distribution Width 15.6 H 11.0-15.5 % Platelet Count 274 # 130-400 K/uL Mean Platelet Volume 11.0 H 7.5-10.5 fL Nucleated Red Blood Cells 0.0 0.0-0.19 % Sodium Level 137 136-145 mmol/L Potassium Level 5.3 H 3.5-5.1 mmol/L Chloride Level 104 101-111 mmol/L Carbon Dioxide Level 25 21-32 mmol/L Blood Urea Nitrogen 73 H 7-18 mg/dL Creatinine 7.7 H 0.5-1.3 mg/dL Glomerular Filtration Rate Calc 7 >90 mL/min Random Glucose 215 H 70-105 mg/dL Total Calcium 8.0 L 8.5-10.1 mg/dL Whole Blood Glucose 189 H 70-110 MG/DL Bedside Glucose Comment Notified Nurse Total Bilirubin 0.5 0.2-1.0 mg/dL Aspartate Amino Transf (AST/SGOT) 12 10-37 U/L Alanine Aminotransferase (ALT/SGPT) 12 12-78 U/L Alkaline Phosphatase 87 50-136 U/L Total Protein 5.7 L 6.0-8.3 g/dL Albumin 1.9 L 3.5-5.0 g/dL DIAGNOSTICS / RADIOLOGY: [ ] Wound care assessment: Partially dehisced surgical wound on the right BKA stump. ASSESSMENT: 1. End-stage renal disease. Dialysis Wednesday, Wednesday, and Wednesday. The patient is at home dialysis program. 2. Diabetes mellitus type 2 with nephropathy with fairly controlled glycemia. 3. Hypertension with renal manifestation with controlled blood pressure. 4. Anemia of chronic kidney disease. We will continue Epogen. 5. Severe protein calorie malnutrition with an albumin of 1.9. 6. Obesity with history of leg amputation. 7. Peripheral arterial disease and infection. 8. Right stump surgical wound infection. PLAN: Continue Antimicrobials dialysis today will continue on MWF. Monitor Nutritional intake, renal diet Fluid restriction 1L QD Monitor Electrolytes Monitor BP Wound care cleaning the wound with normal saline or wound cleanser and pat dry apply Medihoney daily secure with dry dressing. Further management per hospital course. Thank you for the consultation allowing me to participate in the care of your patient. TAYLER ROSE MD Jul 17, 2024 17:04
[2024-07-17] MEDS: VANCOMYCIN 750MG VIAL IVPB SCH (17:05)
[2024-07-17] MEDS: HONEY 1 APPL/ML TUBE TP SCH (18:00)
[2024-07-17 21:59] LABS: HEPATITIS B CORE AB TOTAL Non-Reactive (Nonreactive); HEPATITIS B SURFACE ANTIBODY Negative (Reactive); HEPATITIS C ANTIBODY Non-Reactive (Nonreactive)
[2024-07-17 22:01] LABS: HEPATITIS B SURFACE ANTIGEN Non-Reactive (Nonreactive)
[2024-07-18] VITALS (7 sets, daily range): BP systolic 129–156; BP diastolic 63–76; PULSE 74–93; RESP 18–19; TEMP 97.8–98.4; O2SAT 96
[2024-07-18] MEDS ORDERED: LORazepam 2 MG/ML 1 ML VIAL IVP PRN (10:00)
--- NOTE | 2024-07-18 12:26 | PN ---
PROGRESS NOTE Date of Service: Jul 18, 2024 Time of Service: 12:24 SUBJECTIVE: No new concerns, Denies fever chills and pain, Examined at bedside. Last HD treatment yesterday tolerated session. REVIEW OF SYSTEMS CONSTITUTIONAL: Denies fever, chills, or fatigue. HEAD/FACE: No signs of trauma. EENT: Denies eye pain, blurred vision, double vision, or light sensitivity. RESPIRATORY: Denies shortness of breath, cough, wheezing CARDIOVASCULAR: Denies chest pain, palpitation, syncope GASTROINTESTINAL/ABDOMINAL: Denies abdominal pain, constipation, diarrhea, nausea or vomiting GENITOURINARY: Denies dysuria or hematuria. MUSCULOSKELETAL: Denies joint pain, tenderness, or trauma. INTEGUMENTARY: Denies rash or itchiness NEUROLOGICAL/PSYCH: Denies anxiety, depression, heat or cold intolerance. PHYSICAL EXAM EYES: Anicteric. Pupils equal and reactive. HENT: No oral thrush seen, moist Oral mucosa NECK: Supple, no JVD or thyromegaly. LUNGS: Good air entry. No rales, no rhonchi. CARDIOVASCULAR: S1, S2 regular. No murmur heard. ABDOMEN: Soft, non tender, bowel sounds present, no organomegaly CENTRAL NERVOUS SYSTEM: Awake, alert, oriented x 3. No focal deficits. SKIN: Partially dehisced surgical wound in the right BKA stump, no drainage, no sign of obvious infection. LYMPHATICS: No peripheral lymphadenopathy MUSCULOSKELETAL: No joint swelling, erythema or tenderness. EXTREMITIES: No cyanosis or clubbing BACK: No deformity, no pressure ulcer. GENITOURINARY: No dysuria or hematuria Vital Signs (last 8hr) Date Time Temp Pulse Resp B/P (MAP) Pulse Ox O2 Delivery O2 Flow Rate FiO2 07/18/24 12:00 97.9 83 18 156/76 93 Room Air 07/18/24 08:00 98.2 86 18 151/63 94 Room Air 07/18/24 04:52 97.9 74 18 131/69 98 Room Air 21 LABS: Laboratory: Test 07/18/24 11:27 07/17/24 11:42 07/17/24 11:06 Range/Units Whole Blood Glucose 174 H 70-110 MG/DL White Blood Count 14.3 H 4.8-10.8 K/uL Red Blood Count 2.65 L 4.50-6.20 MIL/uL Hemoglobin 8.0 L 14.0-18.0 g/dL Hematocrit 25.2 L 42-54 % Mean Corpuscular Volume 95.1 79-99 fL Mean Corpuscular Hemoglobin 30.2 27.0-33.0 pg Mean Corpuscular Hemoglobin Concent 31.7 L 32.0-36.0 g/dL Red Cell Distribution Width 15.6 H 11.0-15.5 % Platelet Count 274 # 130-400 K/uL Mean Platelet Volume 11.0 H 7.5-10.5 fL Nucleated Red Blood Cells 0.0 0.0-0.19 % Sodium Level 137 136-145 mmol/L Potassium Level 5.3 H 3.5-5.1 mmol/L Chloride Level 104 101-111 mmol/L Carbon Dioxide Level 25 21-32 mmol/L Blood Urea Nitrogen 73 H 7-18 mg/dL Creatinine 7.7 H 0.5-1.3 mg/dL Glomerular Filtration Rate Calc 7 >90 mL/min Random Glucose 215 H 70-105 mg/dL Total Calcium 8.0 L 8.5-10.1 mg/dL Hepatitis B Surface Antigen. Non-Reactive Nonreactive Hepatitis B Surface Antibody. Negative L Reactive Hepatitis B Core Total Antibody. Non-Reactive Nonreactive Hepatitis C Antibody Non-Reactive Nonreactive Bedside Glucose Comment Notified Nurse DIAGNOSTICS / RADIOLOGY: ASSESSMENT: End-stage renal disease. Dialysis Wednesday, Wednesday, and Wednesday. The patient is at home dialysis program. Diabetes mellitus type 2 with nephropathy with fairly controlled glycemia. Hypertension with renal manifestation with controlled blood pressure. Anemia of chronic kidney disease. We will continue Epogen. Severe protein calorie malnutrition with an albumin of 1.9. Obesity with history of leg amputation. Peripheral arterial disease and infection. Right stump surgical wound infection. PLAN: Continue Antimicrobials dialysis today will continue on MWF. No acute HD today Monitor Nutritional intake, renal diet Fluid restriction 1L QD Monitor Electrolytes Monitor BP Wound care cleaning the wound with normal saline or wound cleanser and pat dry apply Medihoney daily secure with dry dressing. Further management per hospital course. Thank you for the consultation allowing me to participate in the care of your patient. LALITHA KOCH AGPCNP Jul 18, 2024 12:26
--- NOTE | 2024-07-18 19:00 | NUR ---
INFECTIOUS DISEASE CONSULT DECLINED; PATIENT NON COMPLIANT. SPOKE WITH DR. GUAMAN RE: PLAN OF CARE STATED HE COULD NOT WORK WITH PATIENT OR ACCEPT A CONSULT. STATED PATIENT WAS WELL KNOWN TO HIM AND DOES NOT FOLLOW RECOMMENDATIONS. CANNOT WORK WITH PATIENT'S PLAN OF CARE UNDER THOSE CIRCUMSTANCES.
--- NOTE | 2024-07-18 19:58 | PN ---
[facility] PROGRESS NOTE Date of Service: Jul 18, 2024 Time of Service: 19:54 SUBJECTIVE: [59-year-old male with history of end-stage renal disease on dialysis Wednesday, status post right BKA back in May of 2024 who presented to the emergency department with right BKA stump bleeding, associated with redness and pain. Initial x-ray did not show displacement or fracture but did show diffuse soft tissue swelling, below-knee amputation changes are seen, no obvious erosive changes to suggest osteomyelitis. Patient is afebrile, WBCs downtrending today. We will await for further recommendations from orthopedic surgeon, Dr. Montes we will be back on the 18 of July. 07/18/24 : pt seen and examined along with RN , no new complaints, wound cultures grew mrsa, mri pedning ] REVIEW OF SYSTEMS CONSTITUTIONAL: Denies fevers, chills, or night sweats. No unintentional weight loss reported. NEUROLOGICAL: Denies headache, amaurosis fugax, motor weakness, sensory deficit, vertigo/spinning sensation, gait abnormalities, or tremors. ENT: No hearing loss, otalgia, otorrhea, rhinitis, rhinorrhea, hoarseness, or sore throat. CARDIOVASCULAR: Denies any exertional angina, dyspnea on exertion, orthopnea, paroxysmal nocturnal dyspnea, palpitations, life-threatening arrhythmias, claudication. PULMONARY: Denies any shortness of breath, cough, phlegm/sputum, hemoptysis, pleuritic chest pain. SLEEP: Denies morning headaches, daytime somnolence or napping. Denies difficulty falling asleep, staying asleep, waking from sleep. Denies knowledge of snoring. GASTROINTESTINAL: Denies any type of dysphagia to either liquids or solids. Denies nausea, vomiting, pyrosis, early satiety, abdominal pain, diarrhea, co nstipation, or changes in stool consistency or caliber. Denies coffee-ground emesis, hematemesis, hematochezia, or melanotic stools. GENITOURINARY: Denies frequency, urgency, nocturia, hematuria or incontinence (Storage/Irritative symptoms.) Low urinary stream, straining to void, urinary intermittency or hesitancy, splitting of the voiding stream, terminal dribbling. ENDOCRINOLOGIC: Denies polyuria, polydipsia, polyphagia or heat/cold intolerances. HEMATOLOGIC: Denies thrombophilia/previous clots, or coagulopathy/bleeding disorders. ONCOLOGIC: Denies personal history of malignancy. DERMATOLOGIC: Denies rashes or pruritus. PSYCHIATRIC: Denies any suicidal or homicidal ideation. Denies hallucinations. PHYSICAL EXAM GENERAL APPEARANCE: The patient is awake, alert, and oriented, in no acute car diopulmonary distress. NEUROLOGICAL: Cranial nerves II-XII grossly intact. Motor is 5/5 in bilateral upper and lower extremities proximal to distal. No sensory deficits. HEENT: Face is symmetric. Pupils are equal and reactive. Extraocular movements are intact. NECK: Supple. No JVD. No thyromegaly. No submental, submandibular, pre- /postauricular, occipital or supraclavicular lymphadenopathy. CHEST: Normal chest expansion. No Telemetry. LUNGS: Absence of any rales, rhonchi or any wheezing. CARDIOVASCULAR: Regular. S1 and S2 normal. No appreciable rubs, murmurs or gallops. ABDOMEN: Soft, nontender, and nondistended. There is no rebound, voluntary guarding, or rigidity. : Deferred. No Hutson. EXTREMITIES: Non-edematous and not cyanotic. No clubbing. Good capillary refill. SKIN: No skin breakdown. Vital Signs (last 8hr) Date Time Temp Pulse Resp B/P (MAP) Pulse Ox O2 Delivery O2 Flow Rate FiO2 07/18/24 16:00 91 19 141/76 95 Room Air 07/18/24 12:00 97.9 83 18 156/76 93 Room Air LABS: Laboratory: Test 07/18/24 19:30 07/17/24 11:42 07/17/24 11:06 Range/Units Whole Blood Glucose 392 #H 70-110 MG/DL White Blood Count 14.3 H 4.8-10.8 K/uL Red Blood Count 2.65 L 4.50-6.20 MIL/uL Hemoglobin 8.0 L 14.0-18.0 g/dL Hematocrit 25.2 L 42-54 % Mean Corpuscular Volume 95.1 79-99 fL Mean Corpuscular Hemoglobin 30.2 27.0-33.0 pg Mean Corpuscular Hemoglobin Concent 31.7 L 32.0-36.0 g/dL Red Cell Distribution Width 15.6 H 11.0-15.5 % Platelet Count 274 # 130-400 K/uL Mean Platelet Volume 11.0 H 7.5-10.5 fL Nucleated Red Blood Cells 0.0 0.0-0.19 % Sodium Level 137 136-145 mmol/L Potassium Level 5.3 H 3.5-5.1 mmol/L Chloride Level 104 101-111 mmol/L Carbon Dioxide Level 25 21-32 mmol/L Blood Urea Nitrogen 73 H 7-18 mg/dL Creatinine 7.7 H 0.5-1.3 mg/dL Glomerular Filtration Rate Calc 7 >90 mL/min Random Glucose 215 H 70-105 mg/dL Total Calcium 8.0 L 8.5-10.1 mg/dL Hepatitis B Surface Antigen. Non-Reactive Nonreactive Hepatitis B Surface Antibody. Negative L Reactive Hepatitis B Core Total Antibody. Non-Reactive Nonreactive Hepatitis C Antibody Non-Reactive Nonreactive Bedside Glucose Comment Notified Nurse Current Medications Medications (Trade) Dose Ordered Sig/Idania Route PRN Reason Start Time Stop Time Status Last Admin Dose Admin Acetaminophen (TYLenol 325MG TAB) 650 mg Q4H PRN PO TEMPERATURE GREATER THAN 101.5 07/15/24 12:00 08/14/24 11:59 Acetaminophen (TYLenol 325MG TAB) 650 mg Q6H PRN PO MILD PAIN (1-3) 07/15/24 12:00 08/14/24 11:59 Albumin Human (Albumin (Human) 25%) 100 ml ONCE IV 07/17/24 11:30 07/18/24 11:29 DC Atorvastatin Calcium (LIPItor 40MG) 40 mg HS PO 07/15/24 21:00 08/14/24 20:59 07/17/24 21:21 40 MG Dextrose (D50w) 50 ml AD PRN IV HYPOGLYCEMIA PROTOCOL 07/15/24 12:00 08/14/24 11:59 Famotidine (Pepcid 20mg Vial) 20 mg Q48H IV 07/15/24 21:00 08/14/24 20:59 07/17/24 21:20 20 MG Glucagon (Glucagon 1mg Kit) 1 mg AD PRN IM HYPOGLYCEMIA PROTOCOL 07/15/24 12:00 08/14/24 11:59 Heparin Sodium (Porcine) (HEParin 5,000 UNIT VIAL) 10,000 unit AD IRRIG 07/17/24 11:30 08/16/24 11:29 07/17/24 15:26 10,000 UNIT Hydromorphone HCl (DiLAUDid 1MG INJ) 1 mg Q4H PRN IVP SEVERE PAIN (7-10) 07/15/24 15:30 07/20/24 15:29 07/17/24 21:22 1 MG Hydromorphone HCl (DiLAUDid 2MG INJ) 2 mg Q4H PRN IVP SEVERE PAIN (7-10) 07/15/24 12:00 07/17/24 10:58 DC 07/16/24 09:17 2 MG Insulin Human Regular (humuLIN R 100 UNIT/ML 3ML) INSULIN SLIDING SCAL... ACHS SQ 07/15/24 16:30 08/14/24 16:07/18/24 06:49 6 UNIT Leptospermum Honey (Medihoney) APPLY TO RBKA STUMP DAILY TP 07/17/24 17:00 08/16/24 16:59 07/18/24 09:43 1 APPL Lorazepam (AtiVAN) 0.5 mg ONCE PRN IVP ANXIETY/AGITATION 07/18/24 10:00 07/25/24 09:59 Magnesium Sulfate 50 ml @ 0 mls/hr PROTOCOL PRN IV MAGNESIUM PROTOCOL 07/15/24 12:00 08/14/24 11:59 Nifedipine (adALAT 30MG) 60 mg DAILY PO 07/15/24 15:30 08/14/24 15:29 07/18/24 09:43 60 MG Ondansetron HCl (zoFRAN 4MG INJ) 4 mg Q6H PRN IVP NAUSEA/VOMITING 07/15/24 12:00 08/14/24 11:59 Pharmacy Profile Note (Pharmacy Communication) PLEASE PROVIDE DIALY... Q30MIN MISC 07/15/24 12:30 07/15/24 15:13 DC Potassium Chloride 100 ml @ 100 mls/hr AD PRN IV POTASSIUM PROTOCOL 07/15/24 12:00 08/14/24 11:59 Potassium Chloride (K-Dur 10meq Sr Tab) 10 meq AD PRN PO POTASSIUM PROTOCOL 07/17/24 11:30 08/14/24 11:59 Potassium Chloride (K-Dur/Klor-Con 20meq) 10 meq AD PRN PO POTASSIUM PROTOCOL 07/15/24 12:00 07/17/24 11:01 DC Potassium Chloride (KCl 10% Elixir 20meq/15ml) 10 meq AD PRN PO POTASSIUM PROTOCOL 07/15/24 12:00 08/14/24 11:59 Prednisone (deltaSONE/ oraSONE 5MG) 5 mg BID PO 07/15/24 21:00 08/14/24 20:59 07/18/24 09:43 5 MG Sodium Chloride 250 ml @ 125 mls/hr AD IV 07/15/24 15:30 07/17/24 10:58 DC Sodium Chloride 1,000 ml @ 0 mls/hr ONCE IV 07/17/24 11:30 08/16/24 11:29 07/17/24 12:29 100 MLS/HR Vancomycin HCl (Vancomycin 750mg) 750 mg MWFPHD IVPB 07/17/24 16:00 07/27/24 15:59 07/17/24 17:05 750 MG Vancomycin HCl (Vancomycin Protocol) 1 each AD IV 07/15/24 10:00 07/29/24 09:59 DIAGNOSTICS / RADIOLOGY: [ ] ASSESSMENT: [Suspected infection to the right stump, POA Cellulitis, POA Right BKA, POA End-stage renal disease, on dialysis POA Hyperglycemia with diabetes mellitus, POA Leukocytosis, POA Chronic anemia, POA ] PLAN: Continue with renal diet Continue IV antibiotics with vancomycin renally dose We will follow up with Dr. Vizcaino for IV antibiotic stewardship MRI to rule out osteomyelitis Follow up with Nephrology regarding inpatient hemodialysis management GI and DVT prophylaxis We will check electrolytes and replete as necessary We will repeat labs tomorrow DVT: SCD's DANICA THOMAS MD Jul 18, 2024 19:58
[2024-07-19] VITALS (7 sets, daily range): BP systolic 129–159; BP diastolic 67–79; PULSE 81–96; RESP 16–22; TEMP 97.8–98.3; O2SAT 97–99
[2024-07-19 05:25] LABS: BASOPHILS # (AUTO) 0.05 K/uL (0.00-0.20); BASOPHILS % (AUTO) 0.4 % (0.0-5.0); EOSINOPHILS % (AUTO) 0.8 % (0.0-8.0); HEMATOCRIT 29.5 % (42-54); IMMATURE GRANULOCYTE ABSOLUTE 0.72 K/uL (0-1); LYMPHOCYTES # (AUTO) 2.7 K/uL (1.0-4.8); LYMPHOCYTES % (AUTO) 20.4 % (21.0-51.0); MEAN CORPUSCULAR HEMOGLOBIN 29.8 pg (27.0-33.0); MEAN CORPUSCULAR HGB CONC 30.8 g/dL (32.0-36.0); MEAN CORPUSCULAR VOLUME 96.7 fL (79-99); MONOCYTES # (AUTO) 0.8 K/uL (0.1-1.0); MONOCYTES % (AUTO) 5.9 % (3.0-13.0); NEUTROPHILS # (AUTO) 8.8 K/uL (1.8-7.7); PLATELET COUNT (AUTO) 270 K/uL (130-400); RED BLOOD CELL COUNT(AUTO) 3.05 MIL/uL (4.50-6.20); RED CELL DISTRIBUTION WIDTH 15.1 % (11.0-15.5); WHITE BLOOD COUNT (AUTO) 13.1 K/uL (4.8-10.8)
[2024-07-19 05:36] LABS: CREATININE 6.6 mg/dL (0.5-1.3); POTASSIUM 4.1 mmol/L (3.5-5.1)
--- NOTE | 2024-07-19 09:30 | NUR ---
PT REFUSED DIALYSIS TODAY;STATES HE IS GOING HOME TODAY AND WILL DO HIS DIALYSIS AT HOME. CALLED AND NOTIFIED KINSEY ACEVEDO. NO NEW ORDERS RECEIVED. PRIMARY CARE NURSE, SIDDHARTH VOGEL AND CLINICAL HEMODIALYSIS TILE TRIMMER, ALISHA PHILLIP
--- NOTE | 2024-07-19 14:05 | PN ---
[facility] PROGRESS NOTE Date of Service: Jul 19, 2024 Time of Service: 14:00 SUBJECTIVE: [59-year-old male with history of end-stage renal disease on dialysis Wednesday, status post right BKA back in May of 2024 who presented to the emergency department with right BKA stump bleeding, associated with redness and pain. Initial x-ray did not show displacement or fracture but did show diffuse soft tissue swelling, below-knee amputation changes are seen, no obvious erosive changes to suggest osteomyelitis. Patient is afebrile, WBCs downtrending today. We will await for further recommendations from orthopedic surgeon, Dr. Montes we will be back on the 18 of July. 07/18/24 : pt seen and examined along with RN , no new complaints, wound cultures grew mrsa, mri pedning ] 07/19/24 patient seen and examined today morning, he is asymptomatic and denies any acute changes overnight. His WBC is down trending 13.1 from 14.3. BUN 51, creatinine 6.6. Lower extremity MRI was done yesterday and the results are yet to be read. I called the Radiology and I was told that it will be read soon. REVIEW OF SYSTEMS CONSTITUTIONAL: Denies fevers, chills, or night sweats. No unintentional weight loss reported. NEUROLOGICAL: Denies headache, amaurosis fugax, motor weakness, sensory deficit, vertigo/spinning sensation, gait abnormalities, or tremors. ENT: No hearing loss, otalgia, otorrhea, rhinitis, rhinorrhea, hoarseness, or sore throat. CARDIOVASCULAR: Denies any exertional angina, dyspnea on exertion, orthopnea, paroxysmal nocturnal dyspnea, palpitations, life-threatening arrhythmias, claudication. PULMONARY: Denies any shortness of breath, cough, phlegm/sputum, hemoptysis, pleuritic chest pain. SLEEP: Denies morning headaches, daytime somnolence or napping. Denies difficulty falling asleep, staying asleep, waking from sleep. Denies knowledge of snoring. GASTROINTESTINAL: Denies any type of dysphagia to either liquids or solids. Denies nausea, vomiting, pyrosis, early satiety, abdominal pain, diarrhea, constipation, or changes in stool consistency or caliber. Denies coffee-ground emesis, hematemesis, hematochezia, or melanotic stools. GENITOURINARY: Denies frequency, urgency, nocturia, hematuria or incontinence (Storage/Irritative symptoms.) Low urinary stream, straining to void, urinary intermittency or hesitancy, splitting of the voiding stream, terminal dribbling. ENDOCRINOLOGIC: Denies polyuria, polydipsia, polyphagia or heat/cold intolerances. HEMATOLOGIC: Denies thrombophilia/previous clots, or coagulopathy/bleeding disorders. ONCOLOGIC: Denies personal history of malignancy. DERMATOLOGIC: Denies rashes or pruritus. PSYCHIATRIC: Denies any suicidal or homicidal ideation. Denies hallucinations. PHYSICAL EXAM GENERAL APPEARANCE: The patient is awake, alert, and oriented, in no acute cardiopulmonary distress. NEUROLOGICAL: Cranial nerves II-XII grossly intact. Motor is 5/5 in bilateral upper and lower extremities proximal to distal. No sensory deficits. HEENT: Face is symmetric. Pupils are equal and reactive. Extraocular movements are intact. NECK: Supple. No JVD. No thyromegaly. No submental, submandibular, pre- /postauricular, occipital or supraclavicular lymphadenopathy. CHEST: Normal chest expansion. No Telemetry. LUNGS: Absence of any rales, rhonchi or any wheezing. CARDIOVASCULAR: Regular. S1 and S2 normal. No appreciable rubs, murmurs or gallops. ABDOMEN: Soft, nontender, and nondistended. There is no rebound, voluntary guarding, or rigidity. : Deferred. No [place]. EXTREMITIES: Status post Right BKA. Non-edematous and not cyanotic. No clubbing. Good capillary refill. SKIN: No skin breakdown. Vital Signs (last 8hr) Date Time Temp Pulse Resp B/P (MAP) Pulse Ox O2 Delivery O2 Flow Rate FiO2 07/19/24 08:04 98.1 88 18 148/77 99 Room Air 07/19/24 07:40 99 Room Air* 0 21 LABS: Laboratory: Test 07/19/24 05:36 07/19/24 05:12 Range/Units Whole Blood Glucose 288 H 70-110 MG/DL White Blood Count 13.1 H 4.8-10.8 K/uL Red Blood Count 3.05 L 4.50-6.20 MIL/uL Hemoglobin 9.1 L 14.0-18.0 g/dL Hematocrit 29.5 L 42-54 % Mean Corpuscular Volume 96.7 79-99 fL Mean Corpuscular Hemoglobin 29.8 27.0-33.0 pg Mean Corpuscular Hemoglobin Concent 30.8 L 32.0-36.0 g/dL Red Cell Distribution Width 15.1 11.0-15.5 % Platelet Count 270 130-400 K/uL Mean Platelet Volume 10.3 7.5-10.5 fL Immature Granulocyte % (Auto) 5.5 H 0-1 % Neutrophils (%) (Auto) 67.0 40.0-77.0 % Lymphocytes (%) (Auto) 20.4 L 21.0-51.0 % Monocytes (%) (Auto) 5.9 3.0-13.0 % Eosinophils (%) (Auto) 0.8 0.0-8.0 % Basophils (%) (Auto) 0.4 0.0-5.0 % Neutrophils # (Auto) 8.8 H 1.8-7.7 K/uL Lymphocytes # (Auto) 2.7 1.0-4.8 K/uL Monocytes # (Auto) 0.8 0.1-1.0 K/uL Eosinophils # (Auto) 0.10 0.00-0.70 K/uL Basophils # (Auto) 0.05 0.00-0.20 K/uL Absolute Immature Granulocyte (auto 0.72 0-1 K/uL Nucleated Red Blood Cells 0.0 0.0-0.19 % Red Blood Cell Morphology See comments Sodium Level 142 136-145 mmol/L Potassium Level 4.1 3.5-5.1 mmol/L Chloride Level 100 L 101-111 mmol/L Carbon Dioxide Level 29 21-32 mmol/L Blood Urea Nitrogen 51 H 7-18 mg/dL Creatinine 6.6 H 0.5-1.3 mg/dL Glomerular Filtration Rate Calc 9 >90 mL/min Random Glucose 299 H 70-105 mg/dL Total Calcium 7.7 L 8.5-10.1 mg/dL Current Medications Medications (Trade) Dose Ordered Sig/Idania Route PRN Reason Start Time Stop Time Status Last Admin Dose Admin Acetaminophen (TYLenol 325MG TAB) 650 mg Q4H PRN PO TEMPERATURE GREATER THAN 101.5 07/15/24 12:00 08/14/24 11:59 Acetaminophen (TYLenol 325MG TAB) 650 mg Q6H PRN PO MILD PAIN (1-3) 07/15/24 12:00 08/14/24 11:59 Albumin Human (Albumin (Human) 25%) 100 ml ONCE IV 07/17/24 11:30 07/18/24 11:29 DC Atorvastatin Calcium (LIPItor 40MG) 40 mg HS PO 07/15/24 21:00 08/14/24 20:59 07/18/24 22:03 40 MG Dextrose (D50w) 50 ml AD PRN IV HYPOGLYCEMIA PROTOCOL 07/15/24 12:00 08/14/24 11:59 Famotidine (Pepcid 20mg Vial) 20 mg Q48H IV 07/15/24 21:00 08/14/24 20:59 07/17/24 21:20 20 MG Glucagon (Glucagon 1mg Kit) 1 mg AD PRN IM HYPOGLYCEMIA PROTOCOL 07/15/24 12:00 08/14/24 11:59 Heparin Sodium (Porcine) (HEParin 5,000 UNIT VIAL) 10,000 unit AD IRRIG 07/17/24 11:30 08/16/24 11:29 07/17/24 15:26 10,000 UNIT Hydromorphone HCl (DiLAUDid 1MG INJ) 1 mg Q4H PRN IVP SEVERE PAIN (7-10) 07/15/24 15:30 07/20/24 15:29 07/18/24 22:07 1 MG Hydromorphone HCl (DiLAUDid 2MG INJ) 2 mg Q4H PRN IVP SEVERE PAIN (7-10) 07/15/24 12:00 07/17/24 10:58 DC 07/16/24 09:17 2 MG Insulin Human Regular (humuLIN R 100 UNIT/ML 3ML) INSULIN SLIDING SCAL... ACHS SQ 07/15/24 16:30 08/14/24 16:29 07/19/24 06:24 6 UNIT Leptospermum Honey (Holidusan juan) APPLY TO RBKA STUMP DAILY TP 07/17/24 17:00 08/16/24 16:59 07/19/24 08:42 1 APPL Lorazepam (AtiVAN) 0.5 mg ONCE PRN IVP ANXIETY/AGITATION 07/18/24 10:00 07/25/24 09:59 Magnesium Sulfate 50 ml @ 0 mls/hr PROTOCOL PRN IV MAGNESIUM PROTOCOL 07/15/24 12:00 08/14/24 11:59 Nifedipine (adALAT 30MG) 60 mg DAILY PO 07/15/24 15:30 08/14/24 15:29 07/18/24 09:43 60 MG Ondansetron HCl (zoFRAN 4MG INJ) 4 mg Q6H PRN IVP NAUSEA/VOMITING 07/15/24 12:00 08/14/24 11:59 Pharmacy Profile Note (Pharmacy Communication) PLEASE PROVIDE DIALY... Q30MIN MISC 07/15/24 12:30 07/15/24 15:13 DC Potassium Chloride 100 ml @ 100 mls/hr AD PRN IV POTASSIUM PROTOCOL 07/15/24 12:00 08/14/24 11:59 Potassium Chloride (K-Dur 10meq Sr Tab) 10 meq AD PRN PO POTASSIUM PROTOCOL 07/17/24 11:30 08/14/24 11:59 Potassium Chloride (K-Dur/Klor-Con 20meq) 10 meq AD PRN PO POTASSIUM PROTOCOL 07/15/24 12:00 07/17/24 11:01 DC Potassium Chloride (KCl 10% Elixir 20meq/15ml) 10 meq AD PRN PO POTASSIUM PROTOCOL 07/15/24 12:00 08/14/24 11:59 Prednisone (deltaSONE/ oraSONE 5MG) 5 mg BID PO 07/15/24 21:00 08/14/24 20:59 07/19/24 08:41 5 MG Sodium Chloride 250 ml @ 125 mls/hr AD IV 07/15/24 15:30 07/17/24 10:58 DC Sodium Chloride 1,000 ml @ 0 mls/hr ONCE IV 07/17/24 11:30 08/16/24 11:29 07/17/24 12:29 100 MLS/HR Vancomycin HCl (Vancomycin 750mg) 750 mg MWFPHD IVPB 07/17/24 16:00 07/27/24 15:59 07/17/24 17:05 750 MG Vancomycin HCl (Vancomycin Protocol) 1 each AD IV 07/15/24 10:00 07/29/24 09:59 DIAGNOSTICS / RADIOLOGY: [address] [address] [place] [address] IMAGING REPORT Signed PATIENT: FREDRICK LION MR#: [id number] : 1965 SEX: M AGE: 59 LOCATION: [facility] ORDER 3 STATUS: REG ER REPORT#: [id number] SERVICE REASON: OSTEO ORDERING PHYSICIAN: RICARDO DIAZ MD PROCEDURE: TIBFIB RT - TIBIA/FIBULA 2VWS RT TIBIA/FIBULA 2VWS RT INDICATION: OSTEO TECHNIQUE: TIBIA/FIBULA 2VWS RT. FINDINGS AND IMPRESSION: No displaced fracture or dislocation is seen. Correlate clinically. There is diffuse soft tissue swelling. Below knee amputation changes are seen. There is no obvious erosive changes to suggest osteomyelitis. Dense vascular calcifications are noted. DICTATED BY: CASA VIVEROS MD DATE: 07/15/24 111 ELECTRONICALLY SIGNED BY: CASA VIVEROS MD DATE: 07/15/24 111 ASSESSMENT: [Suspected infection to the right stump, POA Cellulitis, POA Right BKA, POA End-stage renal disease, on dialysis POA Hyperglycemia with diabetes mellitus, POA Leukocytosis, POA Chronic anemia, POA ] PLAN: Continue with renal diet Continue IV antibiotics with vancomycin renally dose on dialysis days MRI to rule out osteomyelitis, the results are pending Follow up with Nephrology regarding inpatient hemodialysis management GI and DVT prophylaxis We will check electrolytes and replete as necessary We will repeat labs tomorrow DVT: SCD's ATTESTATION BY PHYSICIAN I have seen and examined the patient. I reviewed the documentation, medical decision making, and treatment plan as noted by the resident provider above. I agree with the findings and plan of care. Elan Riley MD, KRUPALI P MD Jul 19, 2024 14:05
--- NOTE | 2024-07-19 15:19 | NUR ---
PT REFUSED HEMODIALYSIS. REFUSAL SIGNED AND IN CHART. VANCOMYCIN HELD. PHARMACY MADE AWARE.
--- NOTE | 2024-07-19 16:26 | HMCIMG ---
MR LOW EXT OTH THAN JNT WO CON HISTORY: Osteomyelitis COMPARISON: None TECHNIQUE: MRI of the right lower extremity was performed utilizing multiple pulse sequences in axial, coronal and sagittal planes. Patient was not given contrast through intravenous route. FINDINGS: Patient is status post below knee amputation. Abnormal increased signal intensity is seen in the proximal tibia and proximal fibula. May be related to osteomyelitis. Adjacent soft tissue swelling is seen suspicious for cellulitis. There appears to be complex fluid with surrounding the distal tibial stump with abscess collection not excluded. No acute displaced fracture or dislocation is seen otherwise. IMPRESSION: 1. Patient is status post below knee amputation. Abnormal increased signal intensity is seen in the proximal tibia and proximal fibula. May be related to osteomyelitis. Adjacent soft tissue swelling is seen suspicious for cellulitis. There appears to be complex fluid with surrounding the distal tibial stump with abscess collection not excluded.
--- NOTE | 2024-07-19 19:30 | NUR ---
blood sugar brought the patient garduno's. patient eating garduno's even though we told him that his blood sugars are going to be high. He says to "wait for an hour" to check it. The blood sugar check was 390. Patient is laughing at bedside and says, "I knew it was going to be high."
--- NOTE | 2024-07-19 19:50 | NUR ---
PERFORMED WOUND CARE ORDER STATED. ADEQUATE AMOUNT OF SEROSANGUINEOUS DRAINAGE NOTED. DAINAGE EXERTED WITH TOUCH TO SURROUNDING AREA.
[2024-07-20] VITALS (20 sets, daily range): BP systolic 124–171; BP diastolic 70–100; PULSE 79–96; RESP 14–21; TEMP 97.6–98.2; O2SAT 99
--- NOTE | 2024-07-20 03:38 | NUR ---
nurse note patient alert and oriented times 4. plan of care discussed with him and he verbalized understanding. brought him laureen's and educated him about his blood sugar and he still ate his dinner. He says he know his sugar is going to be high afterwards. Patient and asked me if he was going to get dialyzed tonight since the patient had refused earlier. I called [facility], and jim sheehan gave him the phone number [phone]. I called the number 3 times and there was no reply. I spoke with the charge nurse, chandler kasper, who spoke with the patient's and explained that the dialysis nurse can try again tomorrow. I spoke with the patient and he says he will "leave home tomorrow." He says there is "no point in being here if I don't get my antibiotics." He was having severe right bka pain relieved by dilaudid. He has slept about 4 hours tonight. Call light within reach, bed alarm on, 2 side rails up. will continue to monitor patient.
[2024-07-20 04:24] LABS: BASOPHILS # (AUTO) 0.05 K/uL (0.00-0.20); BASOPHILS % (AUTO) 0.4 % (0.0-5.0); EOSINOPHILS # (AUTO) 0.15 K/uL (0.00-0.70); EOSINOPHILS % (AUTO) 1.2 % (0.0-8.0); HEMATOCRIT 28.1 % (42-54); IMMATURE GRANULOCYTE ABSOLUTE 0.68 K/uL (0-1); LYMPHOCYTES # (AUTO) 2.3 K/uL (1.0-4.8); MEAN CORPUSCULAR HEMOGLOBIN 29.7 pg (27.0-33.0); MEAN CORPUSCULAR HGB CONC 31.3 g/dL (32.0-36.0); MEAN CORPUSCULAR VOLUME 94.9 fL (79-99); MONOCYTES # (AUTO) 0.8 K/uL (0.1-1.0); MONOCYTES % (AUTO) 6.8 % (3.0-13.0); NEUTROPHILS # (AUTO) 8.1 K/uL (1.8-7.7); PLATELET COUNT (AUTO) 269 K/uL (130-400); RED BLOOD CELL COUNT(AUTO) 2.96 MIL/uL (4.50-6.20); WHITE BLOOD COUNT (AUTO) 12.2 K/uL (4.8-10.8)
[2024-07-20 04:34] LABS: CREATININE 7.6 mg/dL (0.5-1.3); POTASSIUM 4.4 mmol/L (3.5-5.1)
--- NOTE | 2024-07-20 06:25 | NUR ---
dr. mas reminded dr. mas about patient consult for right bka infection. he ordered to keep patient npo. I informed the patient and patient is aware not to drink or eat anything. npo sign on the door now.
[2024-07-20] MEDS ORDERED: PHARMACY COMMUNICATION MISC SCH (13:00)
[2024-07-20] MEDS: LINEZOLID 600 MG/ISO-OSM 300 ML IV SCH ×2 (14:48→20:02)
--- NOTE | 2024-07-20 14:54 | PN ---
[facility] PROGRESS NOTE Date of Service: Jul 20, 2024 Time of Service: 14:44 SUBJECTIVE: [59-year-old male with history of end-stage renal disease on dialysis Wednesday, status post right BKA back in May of 2024 who presented to the emergency department with right BKA stump bleeding, associated with redness and pain. Initial x-ray did not show displacement or fracture but did show diffuse soft tissue swelling, below-knee amputation changes are seen, no obvious erosive changes to suggest osteomyelitis. Patient is afebrile, WBCs downtrending today. We will await for further recommendations from orthopedic surgeon, Dr. Montes we will be back on the 18 of July. 07/18/24 : pt seen and examined along with RN , no new complaints, wound cultures grew mrsa, mri pedning ] 07/19/24 patient seen and examined today morning, he is asymptomatic and denies any acute changes overnight. His WBC is down trending 13.1 from 14.3. BUN 51, creatinine 6.6. Lower extremity MRI was done yesterday and the results are yet to be read. I called the Radiology and I was told that it will be read soon. 07/20/2024. Patient was seen and examined along with RN. Patient was seen by Orthopedic surgery today. Plan to do surgery today or tomorrow. White count remains elevated. MRI report was discussed with him yesterday on the phone and his wound on the right lower extremity stump has opened up and is draining serosanguineous fluid. He will get hemodialysis today REVIEW OF SYSTEMS CONSTITUTIONAL: Denies fevers, chills, or night sweats. No unintentional weight loss reported. NEUROLOGICAL: Denies headache, amaurosis fugax, motor weakness, sensory deficit, vertigo/spinning sensation, gait abnormalities, or tremors. ENT: No hearing loss, otalgia, otorrhea, rhinitis, rhinorrhea, hoarseness, or sore throat. CARDIOVASCULAR: Denies any exertional angina, dyspnea on exertion, orthopnea, paroxysmal nocturnal dyspnea, palpitations, life-threatening arrhythmias, claudication. PULMONARY: Denies any shortness of breath, cough, phlegm/sputum, hemoptysis, pleuritic chest pain. SLEEP: Denies morning headaches, daytime somnolence or napping. Denies difficulty falling asleep, staying asleep, waking from sleep. Denies knowledge of snoring. GASTROINTESTINAL: Denies any type of dysphagia to either liquids or solids. Denies nausea, vomiting, pyrosis, early satiety, abdominal pain, diarrhea, constipation, or changes in stool consistency or caliber. Denies coffee-ground emesis, hematemesis, hematochezia, or melanotic stools. GENITOURINARY: Denies frequency, urgency, nocturia, hematuria or incontinence . ENDOCRINOLOGIC: Denies polyuria, polydipsia, polyphagia or heat/cold intolerances. HEMATOLOGIC: Denies thrombophilia/previous clots, or coagulopathy/bleeding disorders. ONCOLOGIC: Denies personal history of malignancy. PSYCHIATRIC: Denies any suicidal or homicidal ideation. Denies hallucinations. PHYSICAL EXAM GENERAL APPEARANCE: The patient is awake, alert, and oriented, in no acute cardiopulmonary distress. NEUROLOGICAL: Cranial nerves II-XII grossly intact. Motor is 5/5 in bilateral upper and lower extremities proximal to distal. No sensory deficits. HEENT: Face is symmetric. Pupils are equal and reactive. Extraocular movements are intact. NECK: Supple. No JVD. No thyromegaly. No submental, submandibular, pre- /postauricular, occipital or supraclavicular lymphadenopathy. CHEST: Normal chest expansion. No Telemetry. LUNGS: Absence of any rales, rhonchi or any wheezing. CARDIOVASCULAR: Regular. S1 and S2 normal. No appreciable rubs, murmurs or gallops. ABDOMEN: Soft, nontender, and nondistended. There is no rebound, voluntary guarding, or rigidity. : Deferred. No Hutson. EXTREMITIES: Status post Right BKA. There is some wound dehiscence with some drainage SKIN: No skin breakdown. Vital Signs (last 8hr) Date Time Temp Pulse Resp B/P (MAP) Pulse Ox O2 Delivery O2 Flow Rate FiO2 07/20/24 11:31 97.5 82 20 157/75 100 Room Air 07/20/24 08:10 97.5 87 20 125/78 99 Room Air 07/20/24 07:40 99 Room Air* 0 21 LABS: Laboratory: Test 07/20/24 03:57 07/19/24 20:49 07/19/24 15:55 07/19/24 05:12 Range/Units White Blood Count 12.2 H 4.8-10.8 K/uL Red Blood Count 2.96 L 4.50-6.20 MIL/uL Hemoglobin 8.8 L 14.0-18.0 g/dL Hematocrit 28.1 L 42-54 % Mean Corpuscular Volume 94.9 79-99 fL Mean Corpuscular Hemoglobin 29.7 27.0-33.0 pg Mean Corpuscular Hemoglobin Concent 31.3 L 32.0-36.0 g/dL Red Cell Distribution Width 15.0 11.0-15.5 % Platelet Count 269 130-400 K/uL Mean Platelet Volume 11.0 H 7.5-10.5 fL Immature Granulocyte % (Auto) 5.6 H 0-1 % Neutrophils (%) (Auto) 67.0 40.0-77.0 % Lymphocytes (%) (Auto) 19.0 L 21.0-51.0 % Monocytes (%) (Auto) 6.8 3.0-13.0 % Eosinophils (%) (Auto) 1.2 0.0-8.0 % Basophils (%) (Auto) 0.4 0.0-5.0 % Neutrophils # (Auto) 8.1 H 1.8-7.7 K/uL Lymphocytes # (Auto) 2.3 1.0-4.8 K/uL Monocytes # (Auto) 0.8 0.1-1.0 K/uL Eosinophils # (Auto) 0.15 0.00-0.70 K/uL Basophils # (Auto) 0.05 0.00-0.20 K/uL Absolute Immature Granulocyte (auto 0.68 0-1 K/uL Nucleated Red Blood Cells 0.0 0.0-0.19 % Sodium Level 144 136-145 mmol/L Potassium Level 4.4 3.5-5.1 mmol/L Chloride Level 103 101-111 mmol/L Carbon Dioxide Level 29 21-32 mmol/L Blood Urea Nitrogen 67 H 7-18 mg/dL Creatinine 7.6 H 0.5-1.3 mg/dL Glomerular Filtration Rate Calc 8 >90 mL/min Random Glucose 288 H 70-105 mg/dL Total Calcium 7.6 L 8.5-10.1 mg/dL Whole Blood Glucose 390 H 70-110 MG/DL Bedside Glucose Comment Notified Nurse Red Blood Cell Morphology See comments Current Medications Medications (Trade) Dose Ordered Sig/Idania Route PRN Reason Start Time Stop Time Status Last Admin Dose Admin Acetaminophen (TYLenol 325MG TAB) 650 mg Q4H PRN PO TEMPERATURE GREATER THAN 101.5 07/15/24 12:00 08/14/24 11:59 Acetaminophen (TYLenol 325MG TAB) 650 mg Q6H PRN PO MILD PAIN (1-3) 07/15/24 12:00 08/14/24 11:59 Albumin Human (Albumin (Human) 25%) 100 ml ONCE IV 07/17/24 11:30 07/18/24 11:29 DC Atorvastatin Calcium (LIPItor 40MG) 40 mg HS PO 07/15/24 21:00 08/14/24 20:59 07/19/24 20:41 40 MG Dextrose (D50w) 50 ml AD PRN IV HYPOGLYCEMIA PROTOCOL 07/15/24 12:00 08/14/24 11:59 Famotidine (Pepcid 20mg Vial) 20 mg Q48H IV 07/15/24 21:00 08/14/24 20:59 07/19/24 20:42 20 MG Glucagon (Glucagon 1mg Kit) 1 mg AD PRN IM HYPOGLYCEMIA PROTOCOL 07/15/24 12:00 08/14/24 11:59 Heparin Sodium (Porcine) (HEParin 5,000 UNIT VIAL) 10,000 unit AD IRRIG 07/17/24 11:30 08/16/24 11:29 07/17/24 15:26 10,000 UNIT Hydromorphone HCl (DiLAUDid 1MG INJ) 1 mg Q4H PRN IVP SEVERE PAIN (7-10) 07/15/24 15:30 07/20/24 15:07/19/24 22:52 1 MG Hydromorphone HCl (DiLAUDid 2MG INJ) 2 mg Q4H PRN IVP SEVERE PAIN (7-10) 07/15/24 12:00 07/17/24 10:58 DC 07/16/24 09:17 2 MG Insulin Human Regular (humuLIN R 100 UNIT/ML 3ML) INSULIN SLIDING SCAL... ACHS SQ 07/15/24 16:30 08/14/24 16:07/20/24 06:05 6 UNIT Leptospermum Honey (ContentRealtimehoney) APPLY TO RBKA STUMP DAILY TP 07/17/24 17:00 08/16/24 16:59 07/20/24 10:00 1 APPL Linezolid 300 ml @ 150 mls/hr Q12H IV 07/20/24 14:00 07/30/24 13:59 Lorazepam (AtiVAN) 0.5 mg ONCE PRN IVP ANXIETY/AGITATION 07/18/24 10:00 07/25/24 09:59 Magnesium Sulfate 50 ml @ 0 mls/hr PROTOCOL PRN IV MAGNESIUM PROTOCOL 07/15/24 12:00 08/14/24 11:59 Nifedipine (adALAT 30MG) 60 mg DAILY PO 07/15/24 15:30 08/14/24 15:29 07/18/24 09:43 60 MG Ondansetron HCl (zoFRAN 4MG INJ) 4 mg Q6H PRN IVP NAUSEA/VOMITING 07/15/24 12:00 08/14/24 11:59 Pharmacy Profile Note (Pharmacy Communication) 1 each ONCE MISC 07/20/24 13:00 07/20/24 13:16 DC Pharmacy Profile Note (Pharmacy Communication) PLEASE PROVIDE DIALY... Q30MIN MISC 07/15/24 12:30 07/15/24 15:13 DC Potassium Chloride 100 ml @ 100 mls/hr AD PRN IV POTASSIUM PROTOCOL 07/15/24 12:00 08/14/24 11:59 Potassium Chloride (K-Dur 10meq Sr Tab) 10 meq AD PRN PO POTASSIUM PROTOCOL 07/17/24 11:30 08/14/24 11:59 Potassium Chloride (K-Dur/Klor-Con 20meq) 10 meq AD PRN PO POTASSIUM PROTOCOL 07/15/24 12:00 07/17/24 11:01 DC Potassium Chloride (KCl 10% Elixir 20meq/15ml) 10 meq AD PRN PO POTASSIUM PROTOCOL 07/15/24 12:00 08/14/24 11:59 Prednisone (deltaSONE/ oraSONE 5MG) 5 mg BID PO 07/15/24 21:00 08/14/24 20:59 07/19/24 20:42 5 MG Sodium Chloride 250 ml @ 125 mls/hr AD IV 07/15/24 15:30 07/17/24 10:58 DC Sodium Chloride 1,000 ml @ 0 mls/hr ONCE IV 07/17/24 11:30 08/16/24 11:29 07/17/24 12:29 100 MLS/HR Vancomycin HCl (Vancomycin 750mg) 750 mg MWFPHD IVPB 07/17/24 16:00 07/27/24 15:59 07/17/24 17:05 750 MG Vancomycin HCl (Vancomycin Protocol) 1 each AD IV 07/15/24 10:00 07/29/24 09:59 DIAGNOSTICS / RADIOLOGY: [ ] ASSESSMENT: [Suspected infection to the right stump, POA Osteomyelitis of right lower extremity stump POA Cellulitis, POA Right BKA, POA End-stage renal disease, on dialysis POA Hyperglycemia with diabetes mellitus, POA Leukocytosis, POA Chronic anemia, POA ] PLAN: Patient was refusing dialysis initially for that reason I have switched the patient to IV Zyvox. As patient is a home dialysis patient and does not want to go to sniff or rehab after discharge so IV antibiotic we will be difficult switching to Zyvox may give us option for oral therapy. We will consult Nephrology to get dialysis. Patient was seen by Orthopedic today for possible debridement of the wound tomorrow. GI and DVT prophylaxis We will check electrolytes and replete as necessary We will repeat labs tomorrow DVT: SCD's DANICA THOMAS MD Jul 20, 2024 14:54
--- NOTE | 2024-07-20 16:00 | NUR ---
[facility] Follow-up: Patient re-assessed by wound healing team. Assessment and recommendations provided to primary nurse. Education provided. Wound care done. Addendum: 07/21/24 at 1014 by JONATHAN OVIEDO RN RN/ Amended: Links added.
--- NOTE | 2024-07-20 20:42 | PN ---
NEPHROLOGY FOLLOWUP SUBJECTIVE: The patient offers no new major complaints. No fever or chills. No dyspnea. OBJECTIVE: GENERAL: Not in any acute distress. VITAL SIGNS: Blood pressure 171/86, respirations 14, pulse 85, temperature 97.5. LUNGS: Clear on auscultation. HEART: Normal cardiac sound. ABDOMEN: Soft, nondistended. EXTREMITIES: No edema. LABORATORY DATA: WBC count 12.2, hemoglobin 8.8. Sodium 144, potassium 4.4, BUN 67, creatinine of 7.6. ASSESSMENT: * End-stage renal disease, on home hemodialysis. * Diabetes mellitus type 2 with nephropathy. * Hypertension with renal manifestation. Slightly elevated blood pressure at this time. * Anemia and chronic kidney disease. * Severe protein caloric malnutrition with albumin level of 1.9 grams. * Obesity with history of leg amputation. * Obesity. * History of leg amputation with peripheral arterial disease. * Right stump surgical wound infection. PLAN: Continue antimicrobials. Dialysis to continue Wednesday, Wednesday and Wednesday. Further recommendations as I follow the patient. TID: [id number] RECEIPT: [id number]
[2024-07-20] MEDS: hydroMORPHone 1 MG INJ IVP PRN (22:24)
[2024-07-21] VITALS (26 sets, daily range): BP systolic 136–190; BP diastolic 69–105; PULSE 67–86; RESP 14–20; TEMP 97.2–98.7
[2024-07-21 04:47] LABS: BASOPHILS # (AUTO) 0.08 K/uL (0.00-0.20); BASOPHILS % (AUTO) 0.7 % (0.0-5.0); EOSINOPHILS # (AUTO) 0.25 K/uL (0.00-0.70); EOSINOPHILS % (AUTO) 2.2 % (0.0-8.0); HEMATOCRIT 29.4 % (42-54); IMMATURE GRANULOCYTE ABSOLUTE 0.76 K/uL (0-1); LYMPHOCYTES # (AUTO) 2.3 K/uL (1.0-4.8); LYMPHOCYTES % (AUTO) 20.6 % (21.0-51.0); MEAN CORPUSCULAR HEMOGLOBIN 30.2 pg (27.0-33.0); MEAN CORPUSCULAR HGB CONC 31.3 g/dL (32.0-36.0); MEAN CORPUSCULAR VOLUME 96.4 fL (79-99); MONOCYTES # (AUTO) 0.6 K/uL (0.1-1.0); MONOCYTES % (AUTO) 5.7 % (3.0-13.0); NEUTROPHILS # (AUTO) 7.2 K/uL (1.8-7.7); PLATELET COUNT (AUTO) 265 K/uL (130-400); RED BLOOD CELL COUNT(AUTO) 3.05 MIL/uL (4.50-6.20); RED CELL DISTRIBUTION WIDTH 14.9 % (11.0-15.5); WHITE BLOOD COUNT (AUTO) 11.2 K/uL (4.8-10.8)
[2024-07-21 05:09] LABS: CREATININE 5.4 mg/dL (0.5-1.3); POTASSIUM 4.3 mmol/L (3.5-5.1)
[2024-07-21] MEDS ORDERED: AZTREONAM 2 GM VIAL IVPB SCH (09:30)
[2024-07-21] MEDS: AZTREONAM 2 GM VIAL IVPB SCH (11:51)
[2024-07-21] MEDS ORDERED: MIDAZOLAM HCL 1 MG/ML 2ML VIAL ONE (13:04)
[2024-07-21] MEDS ORDERED: ketaMINE 50MG/ML SYRINGE 50 MG/ML DISP.SYRIN ONE (13:08)
[2024-07-21] MEDS ORDERED: LIDOCAINE PF 100MG/5ML (2%) SYRINGE 5ML ONE (13:08)
[2024-07-21] MEDS ORDERED: proPOFol 10 MG/ML 20ML VIAL IV ONE (13:09)
--- NOTE | 2024-07-21 14:00 | NUR ---
POSS PLAN FOR IV ABX OUTPATIENT = [facility] IN [place] DISCUSSED WITH DR. DAVIS AND Tha [facility]. [facility] IN [place]. WILL DISCUSS W PATIENT ON WEDNESDAY RE PLAN OF CARE, POSS DC [facility]. PATIENT S/P SURGERY , NOT A GOOD TIME TO TALK
[2024-07-21] MEDS: FENTanyl CITRate PF 50 MCG/1 ML 2ML VIAL ONE (14:20)
[2024-07-21] MEDS: hydroMORPHone 1 MG INJ ONE (14:36)
--- NOTE | 2024-07-21 14:47 | PN ---
PROGRESS NOTE Date of Service: Jul 21, 2024 Time of Service: 14:41 SUBJECTIVE: No new concerns, Denies fever chills and pain, sx procedure plannde for today. Last HD treatment yesterday tolerated session. REVIEW OF SYSTEMS CONSTITUTIONAL: Denies fever, chills, or fatigue. HEAD/FACE: No signs of trauma. EENT: Denies eye pain, blurred vision, double vision, or light sensitivity. RESPIRATORY: Denies shortness of breath, cough, wheezing CARDIOVASCULAR: Denies chest pain, palpitation, syncope GASTROINTESTINAL/ABDOMINAL: Denies abdominal pain, constipation, diarrhea, nausea or vomiting GENITOURINARY: Denies dysuria or hematuria. MUSCULOSKELETAL: Denies joint pain, tenderness, or trauma. INTEGUMENTARY: Denies rash or itchiness NEUROLOGICAL/PSYCH: Denies anxiety, depression, heat or cold intolerance. PHYSICAL EXAM EYES: Anicteric. Pupils equal and reactive. HENT: No oral thrush seen, moist Oral mucosa NECK: Supple, no JVD or thyromegaly. LUNGS: Good air entry. No rales, no rhonchi. CARDIOVASCULAR: S1, S2 regular. No murmur heard. ABDOMEN: Soft, non tender, bowel sounds present, no organomegaly CENTRAL NERVOUS SYSTEM: Awake, alert, oriented x 3. No focal deficits. SKIN: Partially dehisced surgical wound in the right BKA stump, no drainage, no sign of obvious infection. LYMPHATICS: No peripheral lymphadenopathy MUSCULOSKELETAL: No joint swelling, erythema or tenderness. EXTREMITIES: No cyanosis or clubbing BACK: No deformity, no pressure ulcer. GENITOURINARY: No dysuria or hematuria Vital Signs (last 8hr) Date Time Temp Pulse Resp B/P (MAP) Pulse Ox O2 Delivery O2 Flow Rate FiO2 07/21/24 14:00 97.9 72 14 136/69 100 Nonrebreathing Mask 10.0 100 07/21/24 11:30 97.2 77 18 181/94 95 Room Air 0.0 21 07/21/24 08:00 98.1 81 17 154/79 95 Room Air 07/21/24 07:30 Room Air* 0 21 LABS: Laboratory: Test 07/21/24 14:31 07/21/24 04:38 07/19/24 15:55 Range/Units Whole Blood Glucose 244 H 70-110 MG/DL White Blood Count 11.2 H 4.8-10.8 K/uL Red Blood Count 3.05 L 4.50-6.20 MIL/uL Hemoglobin 9.2 L 14.0-18.0 g/dL Hematocrit 29.4 L 42-54 % Mean Corpuscular Volume 96.4 79-99 fL Mean Corpuscular Hemoglobin 30.2 27.0-33.0 pg Mean Corpuscular Hemoglobin Concent 31.3 L 32.0-36.0 g/dL Red Cell Distribution Width 14.9 11.0-15.5 % Platelet Count 265 130-400 K/uL Mean Platelet Volume 10.6 H 7.5-10.5 fL Immature Granulocyte % (Auto) 6.8 H 0-1 % Neutrophils (%) (Auto) 64.0 40.0-77.0 % Lymphocytes (%) (Auto) 20.6 L 21.0-51.0 % Monocytes (%) (Auto) 5.7 3.0-13.0 % Eosinophils (%) (Auto) 2.2 0.0-8.0 % Basophils (%) (Auto) 0.7 0.0-5.0 % Neutrophils # (Auto) 7.2 1.8-7.7 K/uL Lymphocytes # (Auto) 2.3 1.0-4.8 K/uL Monocytes # (Auto) 0.6 0.1-1.0 K/uL Eosinophils # (Auto) 0.25 0.00-0.70 K/uL Basophils # (Auto) 0.08 0.00-0.20 K/uL Absolute Immature Granulocyte (auto 0.76 0-1 K/uL Nucleated Red Blood Cells 0.0 0.0-0.19 % Activated Partial Thromboplast Time 28.2 26.3-35.5 SEC Sodium Level 141 136-145 mmol/L Potassium Level 4.3 3.5-5.1 mmol/L Chloride Level 100 L 101-111 mmol/L Carbon Dioxide Level 32 21-32 mmol/L Blood Urea Nitrogen 49 H 7-18 mg/dL Creatinine 5.4 H 0.5-1.3 mg/dL Glomerular Filtration Rate Calc 11 >90 mL/min Random Glucose 260 H 70-105 mg/dL Total Calcium 7.6 L 8.5-10.1 mg/dL C-Reactive Protein, Quantitative 31.70 H 0.5-3.0 mg/L Bedside Glucose Comment Notified Nurse DIAGNOSTICS / RADIOLOGY: MR LOW EXT OTH THAN JNT WO CON HISTORY: Osteomyelitis COMPARISON: None TECHNIQUE: MRI of the right lower extremity was performed utilizing multiple pulse sequences in axial, coronal and sagittal planes. Patient was not given contrast through intravenous route. FINDINGS: Patient is status post below knee amputation. Abnormal increased signal intensity is seen in the proximal tibia and proximal fibula. May be related to osteomyelitis. Adjacent soft tissue swelling is seen suspicious for cellulitis. There appears to be complex fluid with surrounding the distal tibial stump with abscess collection not excluded. No acute displaced fracture or dislocation is seen otherwise. IMPRESSION: 1. Patient is status post below knee amputation. Abnormal increased signal intensity is seen in the proximal tibia and proximal fibula. May be related to osteomyelitis. Adjacent soft tissue swelling is seen suspicious for cellulitis. There appears to be complex fluid with surrounding the distal tibial stump with abscess collection not excluded. ASSESSMENT: End-stage renal disease. The patient is at home dialysis program. Diabetes mellitus type 2 with nephropathy with fairly controlled glycemia. Hypertension with renal manifestation with controlled blood pressure. Anemia of chronic kidney disease. We will continue Epogen. Severe protein calorie malnutrition with an albumin of 1.9. Obesity with history of leg amputation. Peripheral arterial disease and infection. Right stump surgical wound infection. PLAN: Continue Antimicrobials No acute HD today Monitor Nutritional intake, renal diet Fluid restriction 1L QD Monitor Electrolytes Monitor BP Wound care cleaning the wound with normal saline or wound cleanser and pat dry apply Medihoney daily secure with dry dressing. Further management per hospital course. Thank you for the consultation allowing me to participate in the care of your patient. LALITHA KOCH [facility] Jul 21, 2024 14:47
--- NOTE | 2024-07-21 15:37 | NUR ---
Pt at procedure. PT to follow tomorrow
--- NOTE | 2024-07-21 17:48 | PN ---
[facility] PROGRESS NOTE Date of Service: Jul 21, 2024 Time of Service: 17:39 SUBJECTIVE: [59-year-old male with history of end-stage renal disease on dialysis Wednesday, status post right BKA back in May of 2024 who presented to the emergency department with right BKA stump bleeding, associated with redness and pain. Initial x-ray did not show displacement or fracture but did show diffuse soft tissue swelling, below-knee amputation changes are seen, no obvious erosive changes to suggest osteomyelitis. Patient is afebrile, WBCs downtrending today. We will await for further recommendations from orthopedic surgeon, Dr. Montes we will be back on the 18 of July. 07/18/24 : pt seen and examined along with RN , no new complaints, wound cultures grew mrsa, mri pedning ] 07/19/24 patient seen and examined today morning, he is asymptomatic and denies any acute changes overnight. His WBC is down trending 13.1 from 14.3. BUN 51, creatinine 6.6. Lower extremity MRI was done yesterday and the results are yet to be read. I called the Radiology and I was told that it will be read soon. 07/20/2024. Patient was seen and examined along with RN. Patient was seen by Orthopedic surgery today. Plan to do surgery today or tomorrow. White count remains elevated. MRI report was discussed with him yesterday on the phone and his wound on the right lower extremity stump has opened up and is draining serosanguineous fluid. He will get hemodialysis today 07/21/2024: pt seen along with rn, he will be going to or today , wound is growing MRSA and Ecoli , will add on Aztrenam and continue zyvox. REVIEW OF SYSTEMS CONSTITUTIONAL: Denies fevers, chills, or night sweats. No unintentional weight loss reported. NEUROLOGICAL: Denies headache, amaurosis fugax, motor weakness, sensory deficit, vertigo/spinning sensation, gait abnormalities, or tremors. ENT: No hearing loss, otalgia, otorrhea, rhinitis, rhinorrhea, hoarseness, or sore throat. CARDIOVASCULAR: Denies any exertional angina, dyspnea on exertion, orthopnea, paroxysmal nocturnal dyspnea, palpitations, life-threatening arrhythmias, claudication. PULMONARY: Denies any shortness of breath, cough, phlegm/sputum, hemoptysis, pleuritic chest pain. SLEEP: Denies morning headaches, daytime somnolence or napping. Denies difficulty falling asleep, staying asleep, waking from sleep. Denies knowledge of snoring. GASTROINTESTINAL: Denies any type of dysphagia to either liquids or solids. Denies nausea, vomiting, pyrosis, early satiety, abdominal pain, diarrhea, constipation, or changes in stool consistency or caliber. Denies coffee-ground emesis, hematemesis, hematochezia, or melanotic stools. GENITOURINARY: Denies frequency, urgency, nocturia, hematuria or incontinence . ENDOCRINOLOGIC: Denies polyuria, polydipsia, polyphagia or heat/cold intolerances. HEMATOLOGIC: Denies thrombophilia/previous clots, or coagulopathy/bleeding disorders. ONCOLOGIC: Denies personal history of malignancy. PSYCHIATRIC: Denies any suicidal or homicidal ideation. Denies hallucinations. PHYSICAL EXAM GENERAL APPEARANCE: The patient is awake, alert, and oriented, in no acute cardiopulmonary distress. NEUROLOGICAL: Cranial nerves II-XII grossly intact. Motor is 5/5 in bilateral upper and lower extremities proximal to distal. No sensory deficits. HEENT: Face is symmetric. Pupils are equal and reactive. Extraocular movements are intact. NECK: Supple. No JVD. No thyromegaly. No submental, submandibular, pre- /postauricular, occipital or supraclavicular lymphadenopathy. CHEST: Normal chest expansion. No Telemetry. LUNGS: Absence of any rales, rhonchi or any wheezing. CARDIOVASCULAR: Regular. S1 and S2 normal. No appreciable rubs, murmurs or gallops. ABDOMEN: Soft, nontender, and nondistended. There is no rebound, voluntary guarding, or rigidity. : Deferred. No Hutson. EXTREMITIES: Status post Right BKA. There is some wound dehiscence with some drainage SKIN: No skin breakdown. Vital Signs (last 8hr) Date Time Temp Pulse Resp B/P (MAP) Pulse Ox O2 Delivery O2 Flow Rate FiO2 07/21/24 15:00 97.9 74 15 156/81 98 Nasal Cannula 2.0 24 07/21/24 14:55 68 15 153/78 98 Nasal Cannula 2.0 24 07/21/24 14:50 72 17 146/80 98 Nasal Cannula 2.0 24 /4/25 14:45 71 16 151/75 98 Nasal Cannula 2.0 07/21/24 14:40 69 17 158/76 98 Nasal Cannula 2.0 07/21/24 14:35 72 17 150/77 98 Nasal Cannula 2.0 07/21/24 14:30 75 16 148/75 98 Nasal Cannula 2.0 07/21/24 14:25 72 17 151/81 100 Nonrebreathing Mask 10.0 100 07/21/24 14:20 67 20 145/78 100 Nonrebreathing Mask 10.0 100 07/21/24 14:15 69 20 159/82 100 Nonrebreathing Mask 10.0 100 07/21/24 14:10 77 16 156/86 100 Nonrebreathing Mask 10.0 100 07/21/24 14:05 76 16 147/74 100 Nonrebreathing Mask 10.0 100 07/21/24 14:00 97.9 72 14 136/69 100 Nonrebreathing Mask 10.0 100 07/21/24 11:30 97.2 77 18 181/94 95 Room Air 0.0 21 LABS: Laboratory: Test 07/21/24 17:17 07/21/24 04:38 Range/Units Whole Blood Glucose 215 H 70-110 MG/DL White Blood Count 11.2 H 4.8-10.8 K/uL Red Blood Count 3.05 L 4.50-6.20 MIL/uL Hemoglobin 9.2 L 14.0-18.0 g/dL Hematocrit 29.4 L 42-54 % Mean Corpuscular Volume 96.4 79-99 fL Mean Corpuscular Hemoglobin 30.2 27.0-33.0 pg Mean Corpuscular Hemoglobin Concent 31.3 L 32.0-36.0 g/dL Red Cell Distribution Width 14.9 11.0-15.5 % Platelet Count 265 130-400 K/uL Mean Platelet Volume 10.6 H 7.5-10.5 fL Immature Granulocyte % (Auto) 6.8 H 0-1 % Neutrophils (%) (Auto) 64.0 40.0-77.0 % Lymphocytes (%) (Auto) 20.6 L 21.0-51.0 % Monocytes (%) (Auto) 5.7 3.0-13.0 % Eosinophils (%) (Auto) 2.2 0.0-8.0 % Basophils (%) (Auto) 0.7 0.0-5.0 % Neutrophils # (Auto) 7.2 1.8-7.7 K/uL Lymphocytes # (Auto) 2.3 1.0-4.8 K/uL Monocytes # (Auto) 0.6 0.1-1.0 K/uL Eosinophils # (Auto) 0.25 0.00-0.70 K/uL Basophils # (Auto) 0.08 0.00-0.20 K/uL Absolute Immature Granulocyte (auto 0.76 0-1 K/uL Nucleated Red Blood Cells 0.0 0.0-0.19 % Activated Partial Thromboplast Time 28.2 26.3-35.5 SEC Sodium Level 141 136-145 mmol/L Potassium Level 4.3 3.5-5.1 mmol/L Chloride Level 100 L 101-111 mmol/L Carbon Dioxide Level 32 21-32 mmol/L Blood Urea Nitrogen 49 H 7-18 mg/dL Creatinine 5.4 H 0.5-1.3 mg/dL Glomerular Filtration Rate Calc 11 >90 mL/min Random Glucose 260 H 70-105 mg/dL Total Calcium 7.6 L 8.5-10.1 mg/dL C-Reactive Protein, Quantitative 31.70 H 0.5-3.0 mg/L Current Medications Medications (Trade) Dose Ordered Sig/Idania Route PRN Reason Start Time Stop Time Status Last Admin Dose Admin Acetaminophen (TYLenol 325MG TAB) 650 mg Q4H PRN PO TEMPERATURE GREATER THAN 101.5 07/15/24 12:00 08/14/24 11:59 Acetaminophen (TYLenol 325MG TAB) 650 mg Q6H PRN PO MILD PAIN (1-3) 07/15/24 12:00 08/14/24 11:59 Acetaminophen/ Hydrocodone Bitart (NORco 5/325MG) 1 tab Q6H PRN PO MODERATE PAIN (4-6) 07/21/24 15:30 07/26/24 15:29 Albumin Human (Albumin (Human) 25%) 100 ml ONCE IV 07/17/24 11:30 07/18/24 11:29 DC Atorvastatin Calcium (LIPItor 40MG) 40 mg HS PO 07/15/24 21:00 08/14/24 20:59 4/3/25 19:40 40 MG Aztreonam (Azactam) 2 gm Q24H IVPB 07/21/24 09:30 07/21/24 11:00 DC Aztreonam (Azactam) 2 gm Q24H IVPB 07/21/24 11:30 08/04/24 11:29 07/21/24 11:51 2 GM Dextrose (D50w) 50 ml AD PRN IV HYPOGLYCEMIA PROTOCOL 07/15/24 12:00 08/14/24 11:59 Famotidine (Pepcid 20mg Vial) 20 mg Q48H IV 07/15/24 21:00 08/14/24 20:59 07/19/24 20:42 20 MG Glucagon (Glucagon 1mg Kit) 1 mg AD PRN IM HYPOGLYCEMIA PROTOCOL 07/15/24 12:00 08/14/24 11:59 Heparin Sodium (Porcine) (HEParin 5,000 UNIT VIAL) 10,000 unit AD IRRIG 07/17/24 11:30 08/16/24 11:29 07/20/24 20:09 10,000 UNIT Hydromorphone HCl (DiLAUDid 1MG INJ) 1 mg Q4H PRN IVP SEVERE PAIN (7-10) 07/15/24 15:30 07/20/24 15:29 DC 07/19/24 22:52 1 MG Hydromorphone HCl (DiLAUDid 1MG INJ) 1 mg Q4H PRN IVP SEVERE PAIN (7-10) 07/20/24 21:00 07/25/24 20:59 07/20/24 22:24 1 MG Hydromorphone HCl (DiLAUDid 2MG INJ) 2 mg Q4H PRN IVP SEVERE PAIN (7-10) 07/15/24 12:00 07/17/24 10:58 DC 07/16/24 09:17 2 MG Insulin Human Regular (humuLIN R 100 UNIT/ML 3ML) INSULIN SLIDING SCAL... ACHS SQ 07/15/24 16:30 08/14/24 16:29 07/21/24 17:37 3 UNIT Leptospermum Honey (Medihoney) APPLY TO RBKA STUMP DAILY TP 07/17/24 17:00 08/16/24 16:59 07/21/24 09:27 1 APPL Linezolid 300 ml @ 150 mls/hr Q12H IV 07/20/24 14:00 07/20/24 16:25 DC Linezolid 300 ml @ 150 mls/hr Q12H IV 07/20/24 20:00 08/02/24 19:59 07/21/24 09:25 150 MLS/HR Lorazepam (AtiVAN) 0.5 mg ONCE PRN IVP ANXIETY/AGITATION 07/18/24 10:00 07/25/24 09:59 Magnesium Sulfate 50 ml @ 0 mls/hr PROTOCOL PRN IV MAGNESIUM PROTOCOL 07/15/24 12:00 08/14/24 11:59 Nifedipine (adALAT 30MG) 60 mg DAILY PO 07/15/24 15:30 08/14/24 15:29 07/18/24 09:43 60 MG Ondansetron HCl (zoFRAN 4MG INJ) 4 mg Q6H PRN IVP NAUSEA/VOMITING 07/15/24 12:00 08/14/24 11:59 Pharmacy Profile Note (Pharmacy Communication) 1 each ONCE MISC 07/20/24 13:00 07/20/24 13:16 DC Pharmacy Profile Note (Pharmacy Communication) PLEASE PROVIDE DIALY... Q30MIN MISC 07/15/24 12:30 07/15/24 15:13 DC Potassium Chloride 100 ml @ 100 mls/hr AD PRN IV POTASSIUM PROTOCOL 07/15/24 12:00 08/14/24 11:59 Potassium Chloride (K-Dur 10meq Sr Tab) 10 meq AD PRN PO POTASSIUM PROTOCOL 07/17/24 11:30 08/14/24 11:59 Potassium Chloride (K-Dur/Klor-Con 20meq) 10 meq AD PRN PO POTASSIUM PROTOCOL 07/15/24 12:00 07/17/24 11:01 DC Potassium Chloride (KCl 10% Elixir 20meq/15ml) 10 meq AD PRN PO POTASSIUM PROTOCOL 07/15/24 12:00 08/14/24 11:59 Prednisone (deltaSONE/ oraSONE 5MG) 5 mg BID PO 07/15/24 21:00 08/14/24 20:59 07/20/24 19:40 5 MG Sodium Chloride 250 ml @ 125 mls/hr AD IV 07/15/24 15:30 07/17/24 10:58 DC Sodium Chloride 1,000 ml @ 0 mls/hr ONCE IV 07/17/24 11:30 08/16/24 11:29 07/20/24 18:13 100 MLS/HR Vancomycin HCl (Vancomycin 750mg) 750 mg MWFPHD IVPB 07/17/24 16:00 07/20/24 16:24 DC 07/17/24 17:05 750 MG Vancomycin HCl (Vancomycin Protocol) 1 each AD IV 07/15/24 10:00 07/20/24 16:24 DC DIAGNOSTICS / RADIOLOGY: [ ] ASSESSMENT: [Suspected infection to the right stump, POA Osteomyelitis of right lower extremity stump POA Cellulitis, POA Right BKA, POA End-stage renal disease, on dialysis POA Hyperglycemia with diabetes mellitus, POA Leukocytosis, POA Chronic anemia, POA ] PLAN: Patient was refusing dialysis initially for that reason I have switched the patient to IV Zyvox. As patient is a home dialysis patient and does not want to go to sniff or rehab after discharge for iv antibiotics. started on aztreonam 2 g Q 24 hour today to cover E coli which grew in the culture. Continue Zyvox for MRSA coverage in the wound. Patient had washout of the stump today by Orthopedic. ID consult was requested but infection is DrEddie refused to see this patient because of phos noncompliance.. We will continue IV antibiotics here ideally he should be going to SNF LTAC to get IV antibiotics but patient would like to go home after surgery for that reason he needs to be followed outpatient for infection disease doctor Dr. Holder can see him as outpatient on dc. Need to coordinate with Nephrology for outpatient antibiotics with dialysis as he does home dialysis antibiotics through dialysis at home and not be feasible. PICC line and midline are contraindicated in ESRD patients were on dialysis. Ideally he should go to LTAC or SNF for IV antibiotics we have talked about this with the patient but he would like to go home. Once final culture is obtained from the surgical site and cleared from orthoped ic we can contact Dr. Mera from Nephrology for possible outpatient IV antibiotics. Nephrology on board GI and DVT prophylaxis DVT: SCD's DANICA THOMAS MD Jul 21, 2024 17:48
--- NOTE | 2024-07-21 18:00 | NUR ---
SPOKE TO PATIENT RE DC PLANNING- POSSIBLE IV ABX AT [facility] IN [place]. ALL QUESTIONS RE REFERRAL ANSWERED. PT LIVES IN [place], SAID WOULD BE WILLING TO DRIVE THERE. STILL PENDING SURGERY FOR NEXT WEEK. MAY OR MAY NOT HAVE A WOUND VAC. STATES IS A PATIENT OF DR. RODRIGUEZ, COULD WE FIND OUT IF HIS CLINIC WOULD DO HIS ABX? ADVISED HIM CM WOULD FOLLOW UP NEXT WEEK.
[2024-07-21] MEDS: HYDROcodone/APAP 5/325 1 TAB TABLET PO PRN (18:12)
[2024-07-22] VITALS (18 sets, daily range): BP systolic 126–173; BP diastolic 67–100; PULSE 81–98; RESP 14–18; TEMP 97.5–98.7
[2024-07-22 04:32] LABS: BASOPHILS # (AUTO) 0.09 K/uL (0.00-0.20); BASOPHILS % (AUTO) 0.8 % (0.0-5.0); EOSINOPHILS # (AUTO) 0.27 K/uL (0.00-0.70); EOSINOPHILS % (AUTO) 2.3 % (0.0-8.0); HEMATOCRIT 29.3 % (42-54); IMMATURE GRANULOCYTE ABSOLUTE 0.66 K/uL (0-1); LYMPHOCYTES # (AUTO) 2.7 K/uL (1.0-4.8); LYMPHOCYTES % (AUTO) 23.3 % (21.0-51.0); MEAN CORPUSCULAR HEMOGLOBIN 30.6 pg (27.0-33.0); MEAN CORPUSCULAR HGB CONC 31.7 g/dL (32.0-36.0); MEAN CORPUSCULAR VOLUME 96.4 fL (79-99); MONOCYTES # (AUTO) 0.7 K/uL (0.1-1.0); MONOCYTES % (AUTO) 6.2 % (3.0-13.0); NEUTROPHILS # (AUTO) 7.1 K/uL (1.8-7.7); NEUTROPHILS % (AUTO) 61.7 % (40.0-77.0); PLATELET COUNT (AUTO) 268 K/uL (130-400); RED BLOOD CELL COUNT(AUTO) 3.04 MIL/uL (4.50-6.20); RED CELL DISTRIBUTION WIDTH 14.8 % (11.0-15.5); WHITE BLOOD COUNT (AUTO) 11.5 K/uL (4.8-10.8)
[2024-07-22 04:43] LABS: CREATININE 6.8 mg/dL (0.5-1.3); POTASSIUM 4.2 mmol/L (3.5-5.1)
--- NOTE | 2024-07-22 08:12 | CONS ---
DATE OF SERVICE: 07/20/2024 CONSULTING SERVICE: Hospitalist. REASON FOR CONSULTATION: Right leg below-knee amputation stump deep infection with wound dehiscence. HISTORY OF PRESENT ILLNESS: This 59-year-old gentleman with history of multiple medical comorbidities, had an amputation done by me on 05/30/2024. He did well after the surgery; however, he said that he had a scratch on that amputation stump and then subsequently it started to enlarge and then, there was wound dehiscence and now comes with a discharge, pain, swelling, and redness to the right leg below-knee amputation stump. So, Ortho was consulted for the same. PAST MEDICAL HISTORY: Positive for end-stage renal disease, hypertension, hyperlipidemia, diabetes, peripheral arterial disease, psoriasis. PAST SURGICAL HISTORY: Previous surgeries: He has multiple AV grafts, cholecystectomy, neck surgery, wrist surgery, and right leg below-knee amputation. SOCIAL HISTORY: Does not smoke, does not drink alcohol, no illegal drugs. FAMILY HISTORY: Positive for diabetes. ALLERGIES: INCLUDING PENICILLIN AND SULFA. MEDICATIONS: Reviewed. REVIEW OF SYSTEMS: A 12-system review of systems is obtained and is negative. PHYSICAL EXAMINATION: GENERAL: On examination, the patient is awake, alert, oriented x 3. LATEST VITAL SIGNS: Temperature 97.2, pulse is 71, respiratory rate is 19, blood pressure is 152/80, pulse oximetry 99% on room air. HEENT: Normocephalic, atraumatic. NECK: No engorged vein. CHEST: Symmetric movement is seen. HEART: Regular rate and rhythm. ABDOMEN: Soft, nontender. EXTREMITIES: Examination of the right leg below-knee amputation stump shows wound dehiscence with unhealthy tissue present, discharge present, erythema present, swelling present, increasing warmth present. DIAGNOSTIC STUDIES: X-rays of the right leg below-knee amputation stump does not show any obvious fractures. The MRI of the right leg below-knee amputation stump shows collection of fluid around the stump area with possible infection around the bony area. LABORATORY DATA: Laboratory investigations were also reviewed. ASSESSMENT AND PLAN: I had a detailed conversation with the patient regarding his condition and told him the treatment options available and the risks and benefits. All questions and concerns were answered in detail. The patient verbalized understanding of the entire treatment conversation and preferred having excisional debridement of the right leg and other indicated procedures. I strongly recommended for him to keep the diabetes under control. Informed consent was obtained. TID: [id number] RECEIPT: [id number] [facility] [place] [facility]
--- NOTE | 2024-07-22 08:16 | OP ---
DATE OF PROCEDURE: 07/21/2024 PREOPERATIVE DIAGNOSIS: Infected with wound dehiscence right leg below-knee amputation stump. POSTOPERATIVE DIAGNOSIS: Infected with wound dehiscence right leg below-knee amputation stump. PROCEDURE PERFORMED: Excisional debridement of the right leg below-knee amputation stump wound dehiscence and deep infection CPT 18624 plus application of negative pressure dressing. CPT 22653 IV FLUIDS: As per Anesthesia. ESTIMATED BLOOD LOSS: Minimal. COMPLICATIONS: None. SPECIMENS SENT: Deep culture from the wound were sent for aerobic and anaerobic. ANESTHESIA: General anesthesia. INDICATIONS FOR PROCEDURE: A 59-year-old gentleman with history of multiple medical comorbidities including diabetes, which is not under control. He did well after the right leg below-knee amputation stump. However, he developed later on some blisters and scratches and subsequently, developed wound dehiscence and infection of the right leg below-knee amputation stump. The patient has been admitted for the same. The MRI shows some significant collection of fluid around the amputation stump and which was draining a lot, so therefore I recommended excisional debridement and other indicated procedures. All risks and benefits were explained in detail. The patient agreed with the above plan. Informed consent was obtained. The patient was correctly identified in the preoperative holding area and the correct patient, correct procedure site, and correct extremity was planned and marked. DESCRIPTION OF PROCEDURE: The patient was then taken to the operating room and placed in supine position, underwent general anesthesia by the anesthetic team. After that, the right lower extremity was then prepped and draped in a sterile fashion. A repeat timeout was done, identifying the correct patient, correct procedure site, correct extremity and correct plan. Subsequently, we started our procedure by opening of the incision of the right leg below-knee amputation stump. We excised unhealthy skin and subcutaneous tissue with a sharp knife, muscle and fascia until fresh bleeding was seen. There was significant unhealthy tissue in the stump and so, we carefully debrided until all the unhealthy tissue was removed and then, we washed with about 3 liters of normal saline diluted with Betadine and also Aricept solution. After debriding the wound, we felt the patient may need another debridement. Therefore, we decided to close the wound with a wound VAC and the plan is to bring the patient back in about 3-4 days for another debridement and possible delayed primary closure. The patient tolerated the procedure well. No complications encountered. TID: [id number] RECEIPT: [id number] [facility]
--- NOTE | 2024-07-22 08:17 | PN ---
DATE OF SERVICE: 07/22/2024 SUBJECTIVE: This is a 59-year-old male patient, status post a right leg below-knee amputation stump, treated with excisional debridement postop day #1. The patient is so far doing good. No acute events overnight. Pain is under control. PHYSICAL EXAMINATION: GENERAL: On examination, the patient is awake, alert, oriented x 3. VITAL SIGNS: Temperature is 97.5, pulse is 81, respiratory rate is 18, blood pressure is 156/75, pulse oximetry 97% on room air. EXTREMITIES: Examination of the right below-knee amputation stump shows a wound VAC present, wound VAC is working well. Suction is good. Mild swelling present to the right leg below-knee amputation stump. ASSESSMENT AND PLAN: Continue IV antibiotics. Follow up cultures. We will plan for a repeat debridement and possible delayed primary closure in about 3-4 days. Ortho will continue to follow the patient. TID: [id number] RECEIPT: [id number] [facility]ITAL[facility]to[facility]
[2024-07-22] MEDS: 0.9%NACL 1000ML 1,000 ML IV SCH (12:32)
--- NOTE | 2024-07-22 13:11 | PN ---
PROGRESS NOTE Date of Service: Jul 22, 2024 Time of Service: 13:10 SUBJECTIVE: No new concerns, Denies fever chills and pain, HD today, tolerating session. REVIEW OF SYSTEMS CONSTITUTIONAL: Denies fever, chills, or fatigue. HEAD/FACE: No signs of trauma. EENT: Denies eye pain, blurred vision, double vision, or light sensitivity. RESPIRATORY: Denies shortness of breath, cough, wheezing CARDIOVASCULAR: Denies chest pain, palpitation, syncope GASTROINTESTINAL/ABDOMINAL: Denies abdominal pain, constipation, diarrhea, nausea or vomiting GENITOURINARY: Denies dysuria or hematuria. MUSCULOSKELETAL: Denies joint pain, tenderness, or trauma. INTEGUMENTARY: Denies rash or itchiness NEUROLOGICAL/PSYCH: Denies anxiety, depression, heat or cold intolerance. PHYSICAL EXAM EYES: Anicteric. Pupils equal and reactive. HENT: No oral thrush seen, moist Oral mucosa NECK: Supple, no JVD or thyromegaly. LUNGS: Good air entry. No rales, no rhonchi. CARDIOVASCULAR: S1, S2 regular. No murmur heard. ABDOMEN: Soft, non tender, bowel sounds present, no organomegaly CENTRAL NERVOUS SYSTEM: Awake, alert, oriented x 3. No focal deficits. SKIN: Partially dehisced surgical wound in the right BKA stump, no drainage, no sign of obvious infection. LYMPHATICS: No peripheral lymphadenopathy MUSCULOSKELETAL: No joint swelling, erythema or tenderness. EXTREMITIES: No cyanosis or clubbing BACK: No deformity, no pressure ulcer. GENITOURINARY: No dysuria or hematuria Vital Signs (last 8hr) Date Time Temp Pulse Resp B/P (MAP) Pulse Ox O2 Delivery O2 Flow Rate FiO2 07/22/24 12:30 95 14 151/90 Room Air 07/22/24 12:25 94 14 126/81 Room Air 07/22/24 12:15 95 14 150/94 Room Air 07/22/24 12:00 98.2 93 18 144/93 94 Room Air 07/22/24 12:00 97 14 170/91 Room Air 07/22/24 11:45 95 14 135/67 Room Air 07/22/24 11:30 89 14 173/100 Room Air 07/22/24 11:15 88 14 144/93 Room Air 07/22/24 11:00 93 14 156/88 Room Air 07/22/24 10:45 84 14 157/85 Room Air 07/22/24 10:30 85 14 150/84 Room Air 07/22/24 10:13 97.7 83 14 150/87 Room Air 07/22/24 09:58 97.7 94 14 142/90 Room Air 07/22/24 08:00 97.9 98 18 153/78 94 Room Air LABS: Laboratory: Test 07/22/24 11:24 07/22/24 04:22 07/21/24 04:38 Range/Units Whole Blood Glucose 139 H 70-110 MG/DL White Blood Count 11.5 H 4.8-10.8 K/uL Red Blood Count 3.04 L 4.50-6.20 MIL/uL Hemoglobin 9.3 L 14.0-18.0 g/dL Hematocrit 29.3 L 42-54 % Mean Corpuscular Volume 96.4 79-99 fL Mean Corpuscular Hemoglobin 30.6 27.0-33.0 pg Mean Corpuscular Hemoglobin Concent 31.7 L 32.0-36.0 g/dL Red Cell Distribution Width 14.8 11.0-15.5 % Platelet Count 268 130-400 K/uL Mean Platelet Volume 10.6 H 7.5-10.5 fL Immature Granulocyte % (Auto) 5.7 H 0-1 % Neutrophils (%) (Auto) 61.7 40.0-77.0 % Lymphocytes (%) (Auto) 23.3 21.0-51.0 % Monocytes (%) (Auto) 6.2 3.0-13.0 % Eosinophils (%) (Auto) 2.3 0.0-8.0 % Basophils (%) (Auto) 0.8 0.0-5.0 % Neutrophils # (Auto) 7.1 1.8-7.7 K/uL Lymphocytes # (Auto) 2.7 1.0-4.8 K/uL Monocytes # (Auto) 0.7 0.1-1.0 K/uL Eosinophils # (Auto) 0.27 0.00-0.70 K/uL Basophils # (Auto) 0.09 0.00-0.20 K/uL Absolute Immature Granulocyte (auto 0.66 0-1 K/uL Nucleated Red Blood Cells 0.0 0.0-0.19 % Sodium Level 141 136-145 mmol/L Potassium Level 4.2 3.5-5.1 mmol/L Chloride Level 101 101-111 mmol/L Carbon Dioxide Level 28 21-32 mmol/L Blood Urea Nitrogen 57 H 7-18 mg/dL Creatinine 6.8 H 0.5-1.3 mg/dL Glomerular Filtration Rate Calc 9 >90 mL/min Random Glucose 140 H 70-105 mg/dL Total Calcium 7.8 L 8.5-10.1 mg/dL Activated Partial Thromboplast Time 28.2 26.3-35.5 SEC C-Reactive Protein, Quantitative 31.70 H 0.5-3.0 mg/L DIAGNOSTICS / RADIOLOGY: MR LOW EXT OTH THAN JNT WO CON HISTORY: Osteomyelitis COMPARISON: None TECHNIQUE: MRI of the right lower extremity was performed utilizing multiple pulse sequences in axial, coronal and sagittal planes. Patient was not given contrast through intravenous route. FINDINGS: Patient is status post below knee amputation. Abnormal increased signal intensity is seen in the proximal tibia and proximal fibula. May be related to osteomyelitis. Adjacent soft tissue swelling is seen suspicious for cellulitis. There appears to be complex fluid with surrounding the distal tibial stump with abscess collection not excluded. No acute displaced fracture or dislocation is seen otherwise. IMPRESSION: 1. Patient is status post below knee amputation. Abnormal increased signal intensity is seen in the proximal tibia and proximal fibula. May be related to osteomyelitis. Adjacent soft tissue swelling is seen suspicious for cellulitis. There appears to be complex fluid with surrounding the distal tibial stump with abscess collection not excluded. ASSESSMENT: End-stage renal disease. The patient is at home dialysis program. Diabetes mellitus type 2 with nephropathy with fairly controlled glycemia. Hypertension with renal manifestation with controlled blood pressure. Anemia of chronic kidney disease. We will continue Epogen. Severe protein calorie malnutrition with an albumin of 1.9. Obesity with history of leg amputation. Peripheral arterial disease and infection. Right stump surgical wound infection. PLAN: Continue Antimicrobials HD today Monitor Nutritional intake, renal diet Fluid restriction 1L QD Monitor Electrolytes Monitor BP Wound care cleaning the wound with normal saline or wound cleanser and pat dry apply Medihoney daily secure with dry dressing. Further management per hospital course. Thank you for the consultation allowing me to participate in the care of your patient. LALITHA KOCH Jul 22, 2024 13:11
[2024-07-22] MEDS: ondanSETRON 4MG INJ IVP PRN (13:28)
--- NOTE | 2024-07-22 15:32 | NUR ---
PT held for dialysis PT to follow
--- NOTE | 2024-07-22 15:58 | PN ---
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 Initial x-ray did not show displacement or fracture but did show diffuse soft tissue swelling, below-knee amputation changes are seen, no obvious erosive changes to suggest osteomyelitis. Patient is afebrile, WBCs downtrending today. We will await for further recommendations from orthopedic surgeon, Dr. Montes we will be back on the 18 of July. 07/18/24 : pt seen and examined along with RN , no new complaints, wound cultures grew mrsa, mri pedning ] 07/19/24 patient seen and examined today morning, he is asymptomatic and denies any acute changes overnight. His WBC is down trending 13.1 from 14.3. BUN 51, creatinine 6.6. Lower extremity MRI was done yesterday and the results are yet to be read. I called the Radiology and I was told that it will be read soon. 07/20/2024. Patient was seen and examined along with RN. Patient was seen by Orthopedic surgery today. Plan to do surgery today or tomorrow. White count remains elevated. MRI report was discussed with him yesterday on the phone and his wound on the right lower extremity stump has opened up and is draining serosanguineous fluid. He will get hemodialysis today 07/21/2024: pt seen along with rn, he will be going to or today , wound is growing MRSA and Ecoli , will add on Aztrenam and continue zyvox. 07/22/24 patient was seen and examined. Case discussed with the RN. He was had a wound VAC placed and is on broad-spectrum antibiotics. Await placement REVIEW OF SYSTEMS CONSTITUTIONAL: Denies fevers, chills, or night sweats. No unintentional weight loss reported. NEUROLOGICAL: Denies headache, amaurosis fugax, motor weakness, sensory deficit, vertigo/spinning sensation, gait abnormalities, or tremors. ENT: No hearing loss, otalgia, otorrhea, rhinitis, rhinorrhea, hoarseness, or sore throat. CARDIOVASCULAR: Denies any exertional angina, dyspnea on exertion, orthopnea, paroxysmal nocturnal dyspnea, palpitations, life-threatening arrhythmias, claudication. PULMONARY: Denies any shortness of breath, cough, phlegm/sputum, hemoptysis, p leuritic chest pain. SLEEP: Denies morning headaches, daytime somnolence or napping. Denies difficulty falling asleep, staying asleep, waking from sleep. Denies knowledge of snoring. GASTROINTESTINAL: Denies any type of dysphagia to either liquids or solids. Denies nausea, vomiting, pyrosis, early satiety, abdominal pain, diarrhea, constipation, or changes in stool consistency or caliber. Denies coffee-ground emesis, hematemesis, hematochezia, or melanotic stools. GENITOURINARY: Denies frequency, urgency, nocturia, hematuria or incontinence . ENDOCRINOLOGIC: Denies polyuria, polydipsia, polyphagia or heat/cold intolerances. HEMATOLOGIC: Denies thrombophilia/previous clots, or coagulopathy/bleeding disorders. ONCOLOGIC: Denies personal history of malignancy. PSYCHIATRIC: Denies any suicidal or homicidal ideation. Denies hallucinations. PHYSICAL EXAM GENERAL APPEARANCE: The patient is awake, alert, and oriented, in no acute cardiopulmonary distress. NEUROLOGICAL: Cranial nerves II-XII grossly intact. Motor is 5/5 in bilateral upper and lower extremities proximal to distal. No sensory deficits. HEENT: Face is symmetric. Pupils are equal and reactive. Extraocular movements are intact. NECK: Supple. No JVD. No thyromegaly. No submental, submandibular, pre- /postauricular, occipital or supraclavicular lymphadenopathy. CHEST: Normal chest expansion. No Telemetry. LUNGS: Absence of any rales, rhonchi or any wheezing. CARDIOVASCULAR: Regular. S1 and S2 normal. No appreciable rubs, murmurs or gallops. ABDOMEN: Soft, nontender, and nondistended. There is no rebound, voluntary guarding, or rigidity. : Deferred. No Hutson. EXTREMITIES: Status post Right BKA. There is some wound dehiscence with some drainage SKIN: No skin breakdown. Vital Signs (last 8hr) Date Time Temp Pulse Resp B/P (MAP) Pulse Ox O2 Delivery O2 Flow Rate FiO2 07/22/24 13:52 Room Air* 0 21 07/22/24 12:57 97.5 87 14 167/98 Room Air 07/22/24 12:30 95 14 151/90 Room Air 07/22/24 12:25 94 14 126/81 Room Air 07/22/24 12:15 95 14 150/94 Room Air 07/22/24 12:00 98.2 93 18 144/93 94 Room Air 07/22/24 12:00 97 14 170/91 Room Air 07/22/24 11:45 95 14 135/67 Room Air 07/22/24 11:30 89 14 173/100 Room Air 07/22/24 11:15 88 14 144/93 Room Air 07/22/24 11:00 93 14 156/88 Room Air 07/22/24 10:45 84 14 157/85 Room Air 07/22/24 10:30 85 14 150/84 Room Air 07/22/24 10:13 97.7 83 14 150/87 Room Air 07/22/24 09:58 97.7 94 14 142/90 Room Air 07/22/24 08:00 97.9 98 18 153/78 94 Room Air LABS: Laboratory: Test 07/22/24 11:24 07/22/24 04:22 07/21/24 04:38 Range/Units Whole Blood Glucose 139 H 70-110 MG/DL White Blood Count 11.5 H 4.8-10.8 K/uL Red Blood Count 3.04 L 4.50-6.20 MIL/uL Hemoglobin 9.3 L 14.0-18.0 g/dL Hematocrit 29.3 L 42-54 % Mean Corpuscular Volume 96.4 79-99 fL Mean Corpuscular Hemoglobin 30.6 27.0-33.0 pg Mean Corpuscular Hemoglobin Concent 31.7 L 32.0-36.0 g/dL Red Cell Distribution Width 14.8 11.0-15.5 % Platelet Count 268 130-400 K/uL Mean Platelet Volume 10.6 H 7.5-10.5 fL Immature Granulocyte % (Auto) 5.7 H 0-1 % Neutrophils (%) (Auto) 61.7 40.0-77.0 % Lymphocytes (%) (Auto) 23.3 21.0-51.0 % Monocytes (%) (Auto) 6.2 3.0-13.0 % Eosinophils (%) (Auto) 2.3 0.0-8.0 % Basophils (%) (Auto) 0.8 0.0-5.0 % Neutrophils # (Auto) 7.1 1.8-7.7 K/uL Lymphocytes # (Auto) 2.7 1.0-4.8 K/uL Monocytes # (Auto) 0.7 0.1-1.0 K/uL Eosinophils # (Auto) 0.27 0.00-0.70 K/uL Basophils # (Auto) 0.09 0.00-0.20 K/uL Absolute Immature Granulocyte (auto 0.66 0-1 K/uL Nucleated Red Blood Cells 0.0 0.0-0.19 % Sodium Level 141 136-145 mmol/L Potassium Level 4.2 3.5-5.1 mmol/L Chloride Level 101 101-111 mmol/L Carbon Dioxide Level 28 21-32 mmol/L Blood Urea Nitrogen 57 H 7-18 mg/dL Creatinine 6.8 H 0.5-1.3 mg/dL Glomerular Filtration Rate Calc 9 >90 mL/min Random Glucose 140 H 70-105 mg/dL Total Calcium 7.8 L 8.5-10.1 mg/dL Activated Partial Thromboplast Time 28.2 26.3-35.5 SEC C-Reactive Protein, Quantitative 31.70 H 0.5-3.0 mg/L Current Medications Medications (Trade) Dose Ordered Sig/Idania Route PRN Reason Start Time Stop Time Status Last Admin Dose Admin Acetaminophen (TYLenol 325MG TAB) 650 mg Q4H PRN PO TEMPERATURE GREATER THAN 101.5 07/15/24 12:00 08/14/24 11:59 Acetaminophen (TYLenol 325MG TAB) 650 mg Q6H PRN PO MILD PAIN (1-3) 07/15/24 12:00 08/14/24 11:59 Acetaminophen/ Hydrocodone Bitart (NORco 5/325MG) 1 tab Q6H PRN PO MODERATE PAIN (4-6) 07/21/24 15:30 07/26/24 15:29 07/22/24 13:41 1 TAB Albumin Human (Albumin (Human) 25%) 100 ml ONCE IV 07/17/24 11:30 07/18/24 11:29 DC Atorvastatin Calcium (LIPItor 40MG) 40 mg HS PO 07/15/24 21:00 08/14/24 20:59 07/21/24 19:38 40 MG Aztreonam (Azactam) 2 gm Q24H IVPB 07/21/24 09:30 07/21/24 11:00 DC Aztreonam (Azactam) 2 gm Q24H IVPB 07/21/24 11:30 08/04/24 11:29 07/22/24 13:30 2 GM Dextrose (D50w) 50 ml AD PRN IV HYPOGLYCEMIA PROTOCOL 07/15/24 12:00 08/14/24 11:59 Famotidine (Pepcid 20mg Vial) 20 mg Q48H IV 07/15/24 21:00 08/14/24 20:59 07/21/24 19:38 20 MG Glucagon (Glucagon 1mg Kit) 1 mg AD PRN IM HYPOGLYCEMIA PROTOCOL 07/15/24 12:00 08/14/24 11:59 Heparin Sodium (Porcine) (HEParin 5,000 UNIT VIAL) 10,000 unit AD IRRIG 07/17/24 11:30 08/16/24 11:29 07/22/24 13:02 10,000 UNIT Hydromorphone HCl (DiLAUDid 1MG INJ) 1 mg Q4H PRN IVP SEVERE PAIN (7-10) 07/15/24 15:30 07/20/24 15:29 DC 07/19/24 22:52 1 MG Hydromorphone HCl (DiLAUDid 1MG INJ) 1 mg Q4H PRN IVP SEVERE PAIN (7-10) 07/20/24 21:00 07/25/24 20:59 07/22/24 04:25 1 MG Hydromorphone HCl (DiLAUDid 2MG INJ) 2 mg Q4H PRN IVP SEVERE PAIN (7-10) 07/15/24 12:00 07/17/24 10:58 DC 07/16/24 09:17 2 MG Insulin Human Regular (humuLIN R 100 UNIT/ML 3ML) INSULIN SLIDING SCAL... ACHS SQ 07/15/24 16:30 08/14/24 16:29 07/21/24 20:25 5 UNIT Leptospermum Honey (Medihoney) APPLY TO RBKA STUMP DAILY TP 07/17/24 17:00 07/22/24 13:43 DC 07/21/24 09:27 1 APPL Linezolid 300 ml @ 150 mls/hr Q12H IV 07/20/24 14:00 07/20/24 16:25 DC Linezolid 300 ml @ 150 mls/hr Q12H IV 07/20/24 20:00 08/02/24 19:59 07/22/24 13:26 150 MLS/HR Lorazepam (AtiVAN) 0.5 mg ONCE PRN IVP ANXIETY/AGITATION 07/18/24 10:00 07/25/24 09:59 Magnesium Sulfate 50 ml @ 0 mls/hr PROTOCOL PRN IV MAGNESIUM PROTOCOL 07/15/24 12:00 08/14/24 11:59 Nifedipine (adALAT 30MG) 60 mg DAILY PO 07/15/24 15:30 08/14/24 15:29 07/18/24 09:43 60 MG Ondansetron HCl (zoFRAN 4MG INJ) 4 mg Q6H PRN IVP NAUSEA/VOMITING 07/15/24 12:00 08/14/24 11:59 07/22/24 13:28 4 MG Pharmacy Profile Note (Pharmacy Communication) 1 each ONCE MISC 07/20/24 13:00 07/20/24 13:16 DC Pharmacy Profile Note (Pharmacy Communication) PLEASE PROVIDE DIALY... Q30MIN MISC 07/15/24 12:30 07/15/24 15:13 DC Potassium Chloride 100 ml @ 100 mls/hr AD PRN IV POTASSIUM PROTOCOL 07/15/24 12:00 08/14/24 11:59 Potassium Chloride (K-Dur 10meq Sr Tab) 10 meq AD PRN PO POTASSIUM PROTOCOL 07/17/24 11:30 08/14/24 11:59 Potassium Chloride (K-Dur/Klor-Con 20meq) 10 meq AD PRN PO POTASSIUM PROTOCOL 07/15/24 12:00 07/17/24 11:01 DC Potassium Chloride (KCl 10% Elixir 20meq/15ml) 10 meq AD PRN PO POTASSIUM PROTOCOL 07/15/24 12:00 08/14/24 11:59 Prednisone (deltaSONE/ oraSONE 5MG) 5 mg BID PO 07/15/24 21:00 08/14/24 20:59 07/22/24 13:39 5 MG Sodium Chloride 250 ml @ 125 mls/hr AD IV 07/15/24 15:30 07/17/24 10:58 DC Sodium Chloride 1,000 ml @ 0 mls/hr ONCE IV 07/17/24 11:30 07/22/24 12:03 DC 07/20/24 18:13 100 MLS/HR Sodium Chloride 1,000 ml @ 0 mls/hr ONCE IV 07/22/24 12:00 08/21/24 11:59 07/22/24 12:32 333 MLS/HR Vancomycin HCl (Vancomycin 750mg) 750 mg MWFPHD IVPB 07/17/24 16:00 07/20/24 16:24 DC 07/17/24 17:05 750 MG Vancomycin HCl (Vancomycin Protocol) 1 each AD IV 07/15/24 10:00 07/20/24 16:24 DC DIAGNOSTICS / RADIOLOGY: [ ] ASSESSMENT: [Suspected infection to the right stump, POA Osteomyelitis of right lower extremity stump POA Cellulitis, POA Right BKA, POA End-stage renal disease, on dialysis POA Hyperglycemia with diabetes mellitus, POA Leukocytosis, POA Chronic anemia, POA ] PLAN: Patient was refusing dialysis initially for that reason I have switched the patient to IV Zyvox. As patient is a home dialysis patient and does not want to go to sniff or rehab after discharge for iv antibiotics. started on aztreonam 2 g Q 24 hour today to cover E coli which grew in the culture. Continue Zyvox for MRSA coverage in the wound. Patient had washout of the stump today by Orthopedic. ID consult was requested but infection is refused to see this patient because of phos noncompliance.. We will continue IV antibiotics here ideally he should be going to SNF LTAC to get IV antibiotics but patient would like to go home after surgery for that reason he needs to be followed outpatient for infection disease doctor Dr. Holder can see him as outpatient on dc. Need to coordinate with Nephrology for outpatient antibiotics with dialysis as he does home dialysis antibiotics through dialysis at home and not be feasible. PICC line and midline are contraindicated in ESRD patients were on dialysis. Ideally he should go to LTAC or SNF for IV antibiotics we have talked about this with the patient but he would like to go home. Once final culture is obtained from the surgical site and cleared from orthopedic we can contact Dr. Mera from Nephrology for possible outpatient IV antibiotics. Nephrology on board GI and DVT prophylaxis DVT: SCD's JOSSY SPENCE MD Jul 22, 2024 15:58
[2024-07-23] VITALS (8 sets, daily range): BP systolic 113–144; BP diastolic 57–81; PULSE 71–90; RESP 16–20; TEMP 97.7–98.7; O2SAT 97
--- NOTE | 2024-07-23 08:30 | NUR ---
DURING MED PASS THIS PATIENT STATED THAT HE HAD PAIN TO RIGHT STUMP. OFFERED HIM PAIN MEDICATION AND HE REFUSED SAYING THAT IT WAS TOO EARLY TO TAKE PAIN MEDICATION. EDUCATED ON THE IMPORTANCE OF TAKING THE MEDICATION AT THE ONSET OF PAIN. PATIENT STILL REFUSED MEDICATION. WILL MONITOR FOR PAIN THROUGHOUT MY SHIFT.
--- NOTE | 2024-07-23 13:44 | NUR ---
PATIENT IS SCREAMING FROM HIS ROOM. CAME IN AND PATIENT STATED THAT HIS PAIN WAS AT 9. PAIN WAS ASSESSED AT NOON AND HE STILL REFUSED ANY PAIN MEDICATION. PATIENTS PAIN LEVEL IS AT A 9 NOW. RE-EDUCATED PATIENT ON THE IMPORTANCE OF TAKING MEDICATION ON THE ONSET OF PAIN SO THAT IT WOULD NOT ESCALATE TO A HIGH PAIN LEVEL.
--- NOTE | 2024-07-23 14:23 | PN ---
PROGRESS NOTE Date of Service: Jul 23, 2024 Time of Service: 14:21 SUBJECTIVE: No new concerns, Denies fever chills and pain. Last HD treatment was yesterday tolerated session. REVIEW OF SYSTEMS CONSTITUTIONAL: Denies fever, chills, or fatigue. HEAD/FACE: No signs of trauma. EENT: Denies eye pain, blurred vision, double vision, or light sensitivity. RESPIRATORY: Denies shortness of breath, cough, wheezing CARDIOVASCULAR: Denies chest pain, palpitation, syncope GASTROINTESTINAL/ABDOMINAL: Denies abdominal pain, constipation, diarrhea, nausea or vomiting GENITOURINARY: Denies dysuria or hematuria. MUSCULOSKELETAL: Denies joint pain, tenderness, or trauma. INTEGUMENTARY: Denies rash or itchiness NEUROLOGICAL/PSYCH: Denies anxiety, depression, heat or cold intolerance. PHYSICAL EXAM EYES: Anicteric. Pupils equal and reactive. HENT: No oral thrush seen, moist Oral mucosa NECK: Supple, no JVD or thyromegaly. LUNGS: Good air entry. No rales, no rhonchi. CARDIOVASCULAR: S1, S2 regular. No murmur heard. ABDOMEN: Soft, non tender, bowel sounds present, no organomegaly CENTRAL NERVOUS SYSTEM: Awake, alert, oriented x 3. No focal deficits. SKIN: Partially dehisced surgical wound in the right BKA stump, no drainage, no sign of obvious infection. LYMPHATICS: No peripheral lymphadenopathy MUSCULOSKELETAL: No joint swelling, erythema or tenderness. EXTREMITIES: No cyanosis or clubbing BACK: No deformity, no pressure ulcer. GENITOURINARY: No dysuria or hematuria Vital Signs (last 8hr) Date Time Temp Pulse Resp B/P (MAP) Pulse Ox O2 Delivery O2 Flow Rate FiO2 07/23/24 12:00 98.1 86 20 120/73 98 Room Air 07/23/24 08:00 98.1 88 20 125/75 95 Room Air 07/23/24 08:00 Room Air* 0 21 LABS: Laboratory: Test 07/23/24 12:21 07/22/24 04:22 Range/Units Whole Blood Glucose 279 H 70-110 MG/DL White Blood Count 11.5 H 4.8-10.8 K/uL Red Blood Count 3.04 L 4.50-6.20 MIL/uL Hemoglobin 9.3 L 14.0-18.0 g/dL Hematocrit 29.3 L 42-54 % Mean Corpuscular Volume 96.4 79-99 fL Mean Corpuscular Hemoglobin 30.6 27.0-33.0 pg Mean Corpuscular Hemoglobin Concent 31.7 L 32.0-36.0 g/dL Red Cell Distribution Width 14.8 11.0-15.5 % Platelet Count 268 130-400 K/uL Mean Platelet Volume 10.6 H 7.5-10.5 fL Immature Granulocyte % (Auto) 5.7 H 0-1 % Neutrophils (%) (Auto) 61.7 40.0-77.0 % Lymphocytes (%) (Auto) 23.3 21.0-51.0 % Monocytes (%) (Auto) 6.2 3.0-13.0 % Eosinophils (%) (Auto) 2.3 0.0-8.0 % Basophils (%) (Auto) 0.8 0.0-5.0 % Neutrophils # (Auto) 7.1 1.8-7.7 K/uL Lymphocytes # (Auto) 2.7 1.0-4.8 K/uL Monocytes # (Auto) 0.7 0.1-1.0 K/uL Eosinophils # (Auto) 0.27 0.00-0.70 K/uL Basophils # (Auto) 0.09 0.00-0.20 K/uL Absolute Immature Granulocyte (auto 0.66 0-1 K/uL Nucleated Red Blood Cells 0.0 0.0-0.19 % Sodium Level 141 136-145 mmol/L Potassium Level 4.2 3.5-5.1 mmol/L Chloride Level 101 101-111 mmol/L Carbon Dioxide Level 28 21-32 mmol/L Blood Urea Nitrogen 57 H 7-18 mg/dL Creatinine 6.8 H 0.5-1.3 mg/dL Glomerular Filtration Rate Calc 9 >90 mL/min Random Glucose 140 H 70-105 mg/dL Total Calcium 7.8 L 8.5-10.1 mg/dL DIAGNOSTICS / RADIOLOGY: MR LOW EXT OTH THAN JNT WO CON HISTORY: Osteomyelitis COMPARISON: None TECHNIQUE: MRI of the right lower extremity was performed utilizing multiple pulse sequences in axial, coronal and sagittal planes. Patient was not given contrast through intravenous route. FINDINGS: Patient is status post below knee amputation. Abnormal increased signal intensity is seen in the proximal tibia and proximal fibula. May be related to osteomyelitis. Adjacent soft tissue swelling is seen suspicious for cellulitis. There appears to be complex fluid with surrounding the distal tibial stump with abscess collection not excluded. No acute displaced fracture or dislocation is seen otherwise. IMPRESSION: 1. Patient is status post below knee amputation. Abnormal increased signal intensity is seen in the proximal tibia and proximal fibula. May be related to osteomyelitis. Adjacent soft tissue swelling is seen suspicious for cellulitis. There appears to be complex fluid with surrounding the distal tibial stump with abscess collection not excluded. ASSESSMENT: End-stage renal disease. The patient is at home dialysis program. Diabetes mellitus type 2 with nephropathy with fairly controlled glycemia. Hypertension with renal manifestation with controlled blood pressure. Anemia of chronic kidney disease. We will continue Epogen. Severe protein calorie malnutrition with an albumin of 1.9. Obesity with history of leg amputation. Peripheral arterial disease and infection. Right stump surgical wound infection. PLAN: Continue Antimicrobials NO acute HD today Monitor Nutritional intake, renal diet Fluid restriction 1L QD Monitor Electrolytes Monitor BP. Thank you for the consultation allowing me to participate in the care of your patient. LALITHA KOCH [facility] Jul 23, 2024 14:23
--- NOTE | 2024-07-23 16:53 | PN ---
[facility] PROGRESS NOTE Date of Service: Jul 23, 2024 Time of Service: 16:52 SUBJECTIVE: [59-year-old male with history of end-stage renal disease on dialysis Wednesday, status post right BKA back in May of 2024 who presented to the emergency department with right BKA stump bleeding, associated with redness and pain. Initial x-ray did not show displacement or fracture but did show diffuse soft tissue swelling, below-knee amputation changes are seen, no obvious erosive changes to suggest osteomyelitis. Patient is afebrile, WBCs downtrending today. We will await for further recommendations from orthopedic surgeon, Dr. Montes we will be back on the 18 of July. 07/18/24 : pt seen and examined along with RN , no new complaints, wound cultures grew mrsa, mri pedning ] 07/19/24 patient seen and examined today morning, he is asymptomatic and denies any acute changes overnight. His WBC is down trending 13.1 from 14.3. BUN 51, creatinine 6.6. Lower extremity MRI was done yesterday and the results are yet to be read. I called the Radiology and I was told that it will be read soon. 07/20/2024. Patient was seen and examined along with RN. Patient was seen by Orthopedic surgery today. Plan to do surgery today or tomorrow. White count remains elevated. MRI report was discussed with him yesterday on the phone and his wound on the right lower extremity stump has opened up and is draining serosanguineous fluid. He will get hemodialysis today 07/21/2024: pt seen along with rn, he will be going to or today , wound is growing MRSA and Ecoli , will add on Aztrenam and continue zyvox. 07/22/24 patient was seen and examined. Case discussed with the RN. He was had a wound VAC placed and is on broad-spectrum antibiotics. Await placement 07/23/24 patient seen and examined. Case discussed with the RN. Is tolerating the wound VAC denies any complaints. Dr. Arevalo likely would take him for OR on Wednesday to look at the wound and consider closure REVIEW OF SYSTEMS CONSTITUTIONAL: Denies fevers, chills, or night sweats. No unintentional weight loss reported. NEUROLOGICAL: Denies headache, amaurosis fugax, motor weakness, sensory deficit, vertigo/spinning sensation, gait abnormalities, or tremors. ENT: No hearing loss, otalgia, otorrhea, rhinitis, rhinorrhea, hoarseness, or sore throat. CARDIOVASCULAR: Denies any exertional angina, dyspnea on exertion, orthopnea, paroxysmal nocturnal dyspnea, palpitations, life-threatening arrhythmias, claudication. PULMONARY: Denies any shortness of breath, cough, phlegm/sputum, hemoptysis, pleuritic chest pain. SLEEP: Denies morning headaches, daytime somnolence or napping. Denies difficulty falling asleep, staying asleep, waking from sleep. Denies knowledge of snoring. GASTROINTESTINAL: Denies any type of dysphagia to either liquids or solids. Denies nausea, vomiting, pyrosis, early satiety, abdominal pain, diarrhea, constipation, or changes in stool consistency or caliber. Denies coffee-ground emesis, hematemesis, hematochezia, or melanotic stools. GENITOURINARY: Denies frequency, urgency, nocturia, hematuria or incontinence . ENDOCRINOLOGIC: Denies polyuria, polydipsia, polyphagia or heat/cold intolerances. HEMATOLOGIC: Denies thrombophilia/previous clots, or coagulopathy/bleeding disorders. ONCOLOGIC: Denies personal history of malignancy. PSYCHIATRIC: Denies any suicidal or homicidal ideation. Denies hallucinations. PHYSICAL EXAM GENERAL APPEARANCE: The patient is awake, alert, and oriented, in no acute cardiopulmonary distress. NEUROLOGICAL: Cranial nerves II-XII grossly intact. Motor is 5/5 in bilateral upper and lower extremities proximal to distal. No sensory deficits. HEENT: Face is symmetric. Pupils are equal and reactive. Extraocular movements are intact. NECK: Supple. No JVD. No thyromegaly. No submental, submandibular, pre- /postauricular, occipital or supraclavicular lymphadenopathy. CHEST: Normal chest expansion. No Telemetry. LUNGS: Absence of any rales, rhonchi or any wheezing. CARDIOVASCULAR: Regular. S1 and S2 normal. No appreciable rubs, murmurs or gallops. ABDOMEN: Soft, nontender, and nondistended. There is no rebound, voluntary guarding, or rigidity. : Deferred. No Hutson. EXTREMITIES: Status post Right BKA. There is some wound dehiscence with some drainage SKIN: No skin breakdown. Vital Signs (last 8hr) Date Time Temp Pulse Resp B/P (MAP) Pulse Ox O2 Delivery O2 Flow Rate FiO2 07/23/24 12:00 98.1 86 20 120/73 98 Room Air LABS: Laboratory: Test 07/23/24 16:36 07/22/24 04:22 Range/Units Whole Blood Glucose 344 H 70-110 MG/DL White Blood Count 11.5 H 4.8-10.8 K/uL Red Blood Count 3.04 L 4.50-6.20 MIL/uL Hemoglobin 9.3 L 14.0-18.0 g/dL Hematocrit 29.3 L 42-54 % Mean Corpuscular Volume 96.4 79-99 fL Mean Corpuscular Hemoglobin 30.6 27.0-33.0 pg Mean Corpuscular Hemoglobin Concent 31.7 L 32.0-36.0 g/dL Red Cell Distribution Width 14.8 11.0-15.5 % Platelet Count 268 130-400 K/uL Mean Platelet Volume 10.6 H 7.5-10.5 fL Immature Granulocyte % (Auto) 5.7 H 0-1 % Neutrophils (%) (Auto) 61.7 40.0-77.0 % Lymphocytes (%) (Auto) 23.3 21.0-51.0 % Monocytes (%) (Auto) 6.2 3.0-13.0 % Eosinophils (%) (Auto) 2.3 0.0-8.0 % Basophils (%) (Auto) 0.8 0.0-5.0 % Neutrophils # (Auto) 7.1 1.8-7.7 K/uL Lymphocytes # (Auto) 2.7 1.0-4.8 K/uL Monocytes # (Auto) 0.7 0.1-1.0 K/uL Eosinophils # (Auto) 0.27 0.00-0.70 K/uL Basophils # (Auto) 0.09 0.00-0.20 K/uL Absolute Immature Granulocyte (auto 0.66 0-1 K/uL Nucleated Red Blood Cells 0.0 0.0-0.19 % Sodium Level 141 136-145 mmol/L Potassium Level 4.2 3.5-5.1 mmol/L Chloride Level 101 101-111 mmol/L Carbon Dioxide Level 28 21-32 mmol/L Blood Urea Nitrogen 57 H 7-18 mg/dL Creatinine 6.8 H 0.5-1.3 mg/dL Glomerular Filtration Rate Calc 9 >90 mL/min Random Glucose 140 H 70-105 mg/dL Total Calcium 7.8 L 8.5-10.1 mg/dL Current Medications Medications (Trade) Dose Ordered Sig/Idania Route PRN Reason Start Time Stop Time Status Last Admin Dose Admin Acetaminophen (TYLenol 325MG TAB) 650 mg Q4H PRN PO TEMPERATURE GREATER THAN 101.5 07/15/24 12:00 08/14/24 11:59 Acetaminophen (TYLenol 325MG TAB) 650 mg Q6H PRN PO MILD PAIN (1-3) 07/15/24 12:00 08/14/24 11:59 Acetaminophen/ Hydrocodone Bitart (NORco 5/325MG) 1 tab Q6H PRN PO MODERATE PAIN (4-6) 07/21/24 15:30 07/26/24 15:29 07/22/24 13:41 1 TAB Albumin Human (Albumin (Human) 25%) 100 ml ONCE IV 07/17/24 11:30 07/18/24 11:29 DC Atorvastatin Calcium (LIPItor 40MG) 40 mg HS PO 07/15/24 21:00 08/14/24 20:59 07/22/24 19:50 40 MG Aztreonam (Azactam) 2 gm Q24H IVPB 07/21/24 09:30 07/21/24 11:00 DC Aztreonam (Azactam) 2 gm Q24H IVPB 07/21/24 11:30 08/04/24 11:29 07/22/24 13:30 2 GM Dextrose (D50w) 50 ml AD PRN IV HYPOGLYCEMIA PROTOCOL 07/15/24 12:00 08/14/24 11:59 Famotidine (Pepcid 20mg Vial) 20 mg Q48H IV 07/15/24 21:00 08/14/24 20:59 07/21/24 19:38 20 MG Glucagon (Glucagon 1mg Kit) 1 mg AD PRN IM HYPOGLYCEMIA PROTOCOL 07/15/24 12:00 08/14/24 11:59 Heparin Sodium (Porcine) (HEParin 5,000 UNIT VIAL) 10,000 unit AD IRRIG 07/17/24 11:30 08/16/24 11:29 07/22/24 13:02 10,000 UNIT Hydromorphone HCl (DiLAUDid 1MG INJ) 1 mg Q4H PRN IVP SEVERE PAIN (7-10) 07/15/24 15:30 07/20/24 15:29 DC 07/19/24 22:52 1 MG Hydromorphone HCl (DiLAUDid 1MG INJ) 1 mg Q4H PRN IVP SEVERE PAIN (7-10) 07/20/24 21:00 07/25/24 20:59 07/23/24 13:44 1 MG Hydromorphone HCl (DiLAUDid 2MG INJ) 2 mg Q4H PRN IVP SEVERE PAIN (7-10) 07/15/24 12:00 07/17/24 10:58 DC 07/16/24 09:17 2 MG Insulin Human Regular (humuLIN R 100 UNIT/ML 3ML) INSULIN SLIDING SCAL... ACHS SQ 07/15/24 16:30 08/14/24 16:29 07/23/24 12:53 6 UNIT Leptospermum Honey (Easy Eyeney) APPLY TO RBKA STUMP DAILY TP 07/17/24 17:00 07/22/24 13:43 DC 07/21/24 09:27 1 APPL Linezolid 300 ml @ 150 mls/hr Q12H IV 07/20/24 14:00 07/20/24 16:25 DC Linezolid 300 ml @ 150 mls/hr Q12H IV 07/20/24 20:00 08/02/24 19:59 07/23/24 08:20 150 MLS/HR Lorazepam (AtiVAN) 0.5 mg ONCE PRN IVP ANXIETY/AGITATION 07/18/24 10:00 07/25/24 09:59 Magnesium Sulfate 50 ml @ 0 mls/hr PROTOCOL PRN IV MAGNESIUM PROTOCOL 07/15/24 12:00 08/14/24 11:59 Nifedipine (adALAT 30MG) 60 mg DAILY PO 07/15/24 15:30 08/14/24 15:29 07/18/24 09:43 60 MG Ondansetron HCl (zoFRAN 4MG INJ) 4 mg Q6H PRN IVP NAUSEA/VOMITING 07/15/24 12:00 08/14/24 11:59 07/22/24 13:28 4 MG Pharmacy Profile Note (Pharmacy Communication) 1 each ONCE MISC 07/20/24 13:00 07/20/24 13:16 DC Pharmacy Profile Note (Pharmacy Communication) PLEASE PROVIDE DIALY... Q30MIN MISC 07/15/24 12:30 07/15/24 15:13 DC Potassium Chloride 100 ml @ 100 mls/hr AD PRN IV POTASSIUM PROTOCOL 07/15/24 12:00 08/14/24 11:59 Potassium Chloride (K-Dur 10meq Sr Tab) 10 meq AD PRN PO POTASSIUM PROTOCOL 07/17/24 11:30 08/14/24 11:59 Potassium Chloride (K-Dur/Klor-Con 20meq) 10 meq AD PRN PO POTASSIUM PROTOCOL 07/15/24 12:00 07/17/24 11:01 DC Potassium Chloride (KCl 10% Elixir 20meq/15ml) 10 meq AD PRN PO POTASSIUM PROTOCOL 07/15/24 12:00 08/14/24 11:59 Prednisone (deltaSONE/ oraSONE 5MG) 5 mg BID PO 07/15/24 21:00 08/14/24 20:59 07/23/24 08:19 5 MG Sodium Chloride 250 ml @ 125 mls/hr AD IV 07/15/24 15:30 07/17/24 10:58 DC Sodium Chloride 1,000 ml @ 0 mls/hr ONCE IV 07/17/24 11:30 07/22/24 12:03 DC 07/20/24 18:13 100 MLS/HR Sodium Chloride 1,000 ml @ 0 mls/hr ONCE IV 07/22/24 12:00 08/21/24 11:59 07/22/24 12:32 333 MLS/HR Vancomycin HCl (Vancomycin 750mg) 750 mg MWFPHD IVPB 07/17/24 16:00 07/20/24 16:24 DC 07/17/24 17:05 750 MG Vancomycin HCl (Vancomycin Protocol) 1 each AD IV 07/15/24 10:00 07/20/24 16:24 DC DIAGNOSTICS / RADIOLOGY: [ ] ASSESSMENT: [Suspected infection to the right stump, POA Osteomyelitis of right lower extremity stump POA Cellulitis, POA Right BKA, POA End-stage renal disease, on dialysis POA Hyperglycemia with diabetes mellitus, POA Leukocytosis, POA Chronic anemia, POA ] PLAN: Patient was refusing dialysis initially for that reason I have switched the patient to IV Zyvox. As patient is a home dialysis patient and does not want to go to sniff or rehab after discharge for iv antibiotics. started on aztreonam 2 g Q 24 hour today to cover E coli which grew in the culture. Continue Zyvox for MRSA coverage in the wound. Patient had washout of the stump today by Orthopedic. ID consult was requested but infection is refused to see this patient because of phos noncompliance.. We will continue IV antibiotics here ideally he should be going to SNF LTAC to get IV antibiotics but patient would like to go home after surgery for that reason he needs to be followed outpatient for infection disease doctor Dr. Holder can see him as outpatient on dc. Need to coordinate with Nephrology for outpatient antibiotics with dialysis as he does home dialysis antibiotics through dialysis at home and not be feasible. PICC line and midline are contraindicated in ESRD patients were on dialysis. Ideally he should go to LTAC or SNF for IV antibiotics we have talked about this with the patient but he would like to go home. Once final culture is obtained from the surgical site and cleared from prottoniel mariettarajendra we can contact Dr. Mera from Nephrology for possible outpatient IV antibiotics. Nephrology on board GI and DVT prophylaxis DVT: SCD's JOSSY SPENCE MD Jul 23, 2024 16:53
[2024-07-23] MEDS: INSULIN humuLIN R 100 UNIT/ML 3ML SQ SCH (20:25)
--- NOTE | 2024-07-23 21:42 | PN ---
DATE OF SERVICE: 07/23/2024 SUBJECTIVE: A 59-year-old male patient, status post right leg below-knee amputation stump, treated with I and D and wound VAC application. The patient is so far doing good. No acute events overnight. PHYSICAL EXAMINATION: GENERAL: The patient is awake, alert, oriented x 3. VITAL SIGNS: His latest vital signs were temperature 98.1, pulse is 86, respiratory rate is 20, blood pressure 120/73, pulse oximetry 98% on room air. EXTREMITIES: Examination of the right leg below-knee amputation stump shows wound VAC is present. Wound VAC is working well. Swelling has gone down. Erythema has gone down. ASSESSMENT AND PLAN: Plan for surgery tomorrow with removal of the wound VAC and possible delayed primary closure. All risks and benefits were explained in detail. Informed consent will be obtained. TID: [id number] RECEIPT: [id number] [facility]ITAL[facility]to[facility]
--- NOTE | 2024-07-23 22:40 | NUR ---
RECEIVED PHONE CALL FROM MITCH EDMONDSMANDARIN TUTOR. STATES DR. DAVIS IS SCHEDULING SURGERY FOR PATIENT IN THE MORNING. HE ADVISED ME TO PLACE THE PATIENT ON NPO AFTER MIDNIGHT STATUS. ORDERS NOTED AND CARRIED OUT.
[2024-07-24] VITALS (28 sets, daily range): BP systolic 109–177; BP diastolic 42–105; PULSE 64–91; RESP 12–19; TEMP 97.1–98.3; O2SAT 96
[2024-07-24 11:52] LABS: BASOPHILS # (AUTO) 0.05 K/uL (0.00-0.20); BASOPHILS % (AUTO) 0.5 % (0.0-5.0); EOSINOPHILS # (AUTO) 0.15 K/uL (0.00-0.70); EOSINOPHILS % (AUTO) 1.5 % (0.0-8.0); HEMATOCRIT 30.7 % (42-54); IMMATURE GRANULOCYTE ABSOLUTE 0.18 K/uL (0-1); LYMPHOCYTES # (AUTO) 3.1 K/uL (1.0-4.8); LYMPHOCYTES % (AUTO) 30.3 % (21.0-51.0); MEAN CORPUSCULAR HEMOGLOBIN 30.6 pg (27.0-33.0); MEAN CORPUSCULAR HGB CONC 32.2 g/dL (32.0-36.0); MEAN CORPUSCULAR VOLUME 94.8 fL (79-99); MONOCYTES # (AUTO) 0.4 K/uL (0.1-1.0); MONOCYTES % (AUTO) 4.3 % (3.0-13.0); NEUTROPHILS # (AUTO) 6.3 K/uL (1.8-7.7); NEUTROPHILS % (AUTO) 61.6 % (40.0-77.0); PLATELET COUNT (AUTO) 281 K/uL (130-400); RED BLOOD CELL COUNT(AUTO) 3.24 MIL/uL (4.50-6.20); RED CELL DISTRIBUTION WIDTH 14.6 % (11.0-15.5); WHITE BLOOD COUNT (AUTO) 10.2 K/uL (4.8-10.8)
--- NOTE | 2024-07-24 11:58 | PN ---
PROGRESS NOTE Date of Service: Jul 24, 2024 Time of Service: 11:56 SUBJECTIVE: Seen at bedside. No new concerns, Denies fever chills and pain. Scheduled for procedure today, plan for HD later today. last treatment was wednesday. REVIEW OF SYSTEMS CONSTITUTIONAL: Denies fever, chills, or fatigue. HEAD/FACE: No signs of trauma. EENT: Denies eye pain, blurred vision, double vision, or light sensitivity. RESPIRATORY: Denies shortness of breath, cough, wheezing CARDIOVASCULAR: Denies chest pain, palpitation, syncope GASTROINTESTINAL/ABDOMINAL: Denies abdominal pain, constipation, diarrhea, nausea or vomiting GENITOURINARY: Denies dysuria or hematuria. MUSCULOSKELETAL: Denies joint pain, tenderness, or trauma. INTEGUMENTARY: Denies rash or itchiness NEUROLOGICAL/PSYCH: Denies anxiety, depression, heat or cold intolerance. PHYSICAL EXAM EYES: Anicteric. Pupils equal and reactive. HENT: No oral thrush seen, moist Oral mucosa NECK: Supple, no JVD or thyromegaly. LUNGS: Good air entry. No rales, no rhonchi. CARDIOVASCULAR: S1, S2 regular. No murmur heard. ABDOMEN: Soft, non tender, bowel sounds present, no organomegaly CENTRAL NERVOUS SYSTEM: Awake, alert, oriented x 3. No focal deficits. SKIN: Partially dehisced surgical wound in the right BKA stump, no drainage, no sign of obvious infection. LYMPHATICS: No peripheral lymphadenopathy MUSCULOSKELETAL: No joint swelling, erythema or tenderness. EXTREMITIES: No cyanosis or clubbing BACK: No deformity, no pressure ulcer. GENITOURINARY: No dysuria or hematuria Vital Signs (last 8hr) Date Time Temp Pulse Resp B/P (MAP) Pulse Ox O2 Delivery O2 Flow Rate FiO2 07/24/24 08:20 96 Room Air* 0 21 07/24/24 08:00 97.3 81 18 177/70 96 Room Air 07/24/24 04:00 98.2 80 18 162/86 98 Room Air 21 LABS: Laboratory: Test 07/24/24 11:42 07/24/24 11:07 Range/Units White Blood Count 10.2 4.8-10.8 K/uL Red Blood Count 3.24 L 4.50-6.20 MIL/uL Hemoglobin 9.9 L 14.0-18.0 g/dL Hematocrit 30.7 L 42-54 % Mean Corpuscular Volume 94.8 79-99 fL Mean Corpuscular Hemoglobin 30.6 27.0-33.0 pg Mean Corpuscular Hemoglobin Concent 32.2 32.0-36.0 g/dL Red Cell Distribution Width 14.6 11.0-15.5 % Platelet Count 281 130-400 K/uL Mean Platelet Volume 11.0 H 7.5-10.5 fL Immature Granulocyte % (Auto) 1.8 H 0-1 % Neutrophils (%) (Auto) 61.6 40.0-77.0 % Lymphocytes (%) (Auto) 30.3 21.0-51.0 % Monocytes (%) (Auto) 4.3 3.0-13.0 % Eosinophils (%) (Auto) 1.5 0.0-8.0 % Basophils (%) (Auto) 0.5 0.0-5.0 % Neutrophils # (Auto) 6.3 1.8-7.7 K/uL Lymphocytes # (Auto) 3.1 1.0-4.8 K/uL Monocytes # (Auto) 0.4 0.1-1.0 K/uL Eosinophils # (Auto) 0.15 0.00-0.70 K/uL Basophils # (Auto) 0.05 0.00-0.20 K/uL Absolute Immature Granulocyte (auto 0.18 0-1 K/uL Nucleated Red Blood Cells 0.0 0.0-0.19 % Whole Blood Glucose 183 #H 70-110 MG/DL DIAGNOSTICS / RADIOLOGY: MR LOW EXT OTH THAN JNT WO CON HISTORY: Osteomyelitis COMPARISON: None TECHNIQUE: MRI of the right lower extremity was performed utilizing multiple pulse sequences in axial, coronal and sagittal planes. Patient was not given contrast through intravenous route. FINDINGS: Patient is status post below knee amputation. Abnormal increased signal intensity is seen in the proximal tibia and proximal fibula. May be related to osteomyelitis. Adjacent soft tissue swelling is seen suspicious for cellulitis. There appears to be complex fluid with surrounding the distal tibial stump with abscess collection not excluded. No acute displaced fracture or dislocation is seen otherwise. IMPRESSION: 1. Patient is status post below knee amputation. Abnormal increased signal intensity is seen in the proximal tibia and proximal fibula. May be related to osteomyelitis. Adjacent soft tissue swelling is seen suspicious for cellulitis. There appears to be complex fluid with surrounding the distal tibial stump with abscess collection not excluded. ASSESSMENT: End-stage renal disease. The patient is at home dialysis program. Diabetes mellitus type 2 with nephropathy with fairly controlled glycemia. Hypertension with renal manifestation with controlled blood pressure. Anemia of chronic kidney disease. We will continue Epogen. Severe protein calorie malnutrition with an albumin of 1.9. Obesity with history of leg amputation. Peripheral arterial disease and infection. Right stump surgical wound infection. PLAN: Continue Antimicrobials HD today Monitor Nutritional intake, renal diet Fluid restriction 1L QD Monitor Electrolytes Monitor BP. Thank you for the consultation allowing me to participate in the care of your patient. LALITHA KOCH Jul 24, 2024 11:58
[2024-07-24 12:02] LABS: CREATININE 7.1 mg/dL (0.5-1.3); POTASSIUM 4.4 mmol/L (3.5-5.1)
[2024-07-24] MEDS ORDERED: proPOFol 10 MG/ML 20ML VIAL IV ONE (13:03)
[2024-07-24] MEDS ORDERED: MIDAZOLAM HCL 1 MG/ML 2ML VIAL ONE (13:03)
[2024-07-24] MEDS ORDERED: FENTanyl CITRate PF 50 MCG/1 ML 2ML VIAL ONE (13:04)
[2024-07-24] MEDS ORDERED: ROPivacaine 0.5% 5MG/ML 30ML ONE (13:06)
[2024-07-24] MEDS ORDERED: rocuRONium bROMide 10MG/1ML 5ML VL ONE (13:12)
[2024-07-24] MEDS ORDERED: phenylEPHRINE HCL 10 MG/ML 1ML VIAL IV ONE (13:23)
[2024-07-24] MEDS ORDERED: ondanSETRON 4MG INJ ONE (13:49)
[2024-07-24] MEDS: hydroMORPHone 1 MG INJ ONE (14:17)
--- NOTE | 2024-07-24 17:41 | NUR ---
DC PLAN CM SPOKE TO INSURANCE SAID THAT DR. REYEZ IS IN NETWORK. PATIENT REQUESTED TO GET INFUSION IF NEEDED AT DR. RODRIGUEZ. CM CALLED HIS OFFICE SAID YES THEY CAN PATIENT WOULD NEED TO COME IN TO SEE DR. RODRIGUEZ. CM ASKED IF COULD SEND REFERRAL FROM HOSPITAL SAID NO IT WOULD BE STARTED IN THEIR OFFICE AFTER THE FACE TO FACE FOR AUTHORIZATION. CM ASKED NURSE IF DR. GUAMAN HAS SAID WHICH ABX AND FOR HOW LONG PER NURSE DR. GUAMAN WILL NOT SEE PATIENT. CM ASKED NURSE TO ASK PRIMARY WHEN THEY ROUND IF WOULD BE WILLING TO ASK DR. RODRIGUEZ TO SEE PATIENT IN HOUSE IN ORDER TO FACILITATE OUTPATIENT IV ABX. CM SPOKE TO PATIENT AT LENGTH WILL FOLLOW UP TOMORROW WITH PRIMARY. Addendum: 07/24/24 at 1814 by IAN MONROE RN CM Amended: Links added.
[2024-07-25] VITALS (8 sets, daily range): BP systolic 119–158; BP diastolic 56–80; PULSE 81–94; RESP 18–20; TEMP 97.6–99.2; O2SAT 97–100
--- NOTE | 2024-07-25 13:18 | PN ---
[facility] PROGRESS NOTE Date of Service: Jul 25, 2024 Time of Service: 13:17 SUBJECTIVE: [59-year-old male with history of end-stage renal disease on dialysis Wednesday, status post right BKA back in May of 2024 who presented to the emergency department with right BKA stump bleeding, associated with redness and pain. Initial x-ray did not show displacement or fracture but did show diffuse soft tissue swelling, below-knee amputation changes are seen, no obvious erosive changes to suggest osteomyelitis. Patient is afebrile, WBCs downtrending today. We will await for further recommendations from orthopedic surgeon, Dr. Montes we will be back on the 18 of July. 07/18/24 : pt seen and examined along with RN , no new complaints, wound cultures grew mrsa, mri pedning ] 07/19/24 patient seen and examined today morning, he is asymptomatic and denies any acute changes overnight. His WBC is down trending 13.1 from 14.3. BUN 51, creatinine 6.6. Lower extremity MRI was done yesterday and the results are yet to be read. I called the Radiology and I was told that it will be read soon. 07/20/2024. Patient was seen and examined along with RN. Patient was seen by Orthopedic surgery today. Plan to do surgery today or tomorrow. White count remains elevated. MRI report was discussed with him yesterday on the phone and his wound on the right lower extremity stump has opened up and is draining serosanguineous fluid. He will get hemodialysis today 07/21/2024: pt seen along with rn, he will be going to or today , wound is growing MRSA and Ecoli , will add on Aztrenam and continue zyvox. 07/22/24 patient was seen and examined. Case discussed with the RN. He was had a wound VAC placed and is on broad-spectrum antibiotics. Await placement 07/23/24 patient seen and examined. Case discussed with the RN. Is tolerating the wound VAC denies any complaints. Dr. Arevalo likely would take him for OR on Wednesday to look at the wound and consider closure 07/24/24 patient was seen and examined and case discussed with the RN. No nausea vomiting fever chills 07/25/24 patient was seen and examined case discussed with the RN. Patient is doing well and is waiting for acceptance at [facility] REVIEW OF SYSTEMS CONSTITUTIONAL: Denies fevers, chills, or night sweats. No unintentional weight loss reported. NEUROLOGICAL: Denies headache, amaurosis fugax, motor weakness, sensory deficit, vertigo/spinning sensation, gait abnormalities, or tremors. ENT: No hearing loss, otalgia, otorrhea, rhinitis, rhinorrhea, hoarseness, or sore throat. CARDIOVASCULAR: Denies any exertional angina, dyspnea on exertion, orthopnea, paroxysmal nocturnal dyspnea, palpitations, life-threatening arrhythmias, claudication. PULMONARY: Denies any shortness of breath, cough, phlegm/sputum, hemoptysis, pleuritic chest pain. SLEEP: Denies morning headaches, daytime somnolence or napping. Denies difficulty falling asleep, staying asleep, waking from sleep. Denies knowledge of snoring. GASTROINTESTINAL: Denies any type of dysphagia to either liquids or solids. Denies nausea, vomiting, pyrosis, early satiety, abdominal pain, diarrhea, constipation, or changes in stool consistency or caliber. Denies coffee-ground emesis, hematemesis, hematochezia, or melanotic stools. GENITOURINARY: Denies frequency, urgency, nocturia, hematuria or incontinence . ENDOCRINOLOGIC: Denies polyuria, polydipsia, polyphagia or heat/cold intolerances. HEMATOLOGIC: Denies thrombophilia/previous clots, or coagulopathy/bleeding disorders. ONCOLOGIC: Denies personal history of malignancy. PSYCHIATRIC: Denies any suicidal or homicidal ideation. Denies hallucinations. PHYSICAL EXAM GENERAL APPEARANCE: The patient is awake, alert, and oriented, in no acute cardiopulmonary distress. NEUROLOGICAL: Cranial nerves II-XII grossly intact. Motor is 5/5 in bilateral upper and lower extremities proximal to distal. No sensory deficits. HEENT: Face is symmetric. Pupils are equal and reactive. Extraocular movements are intact. NECK: Supple. No JVD. No thyromegaly. No submental, submandibular, pre- /postauricular, occipital or supraclavicular lymphadenopathy. CHEST: Normal chest expansion. No Telemetry. LUNGS: Absence of any rales, rhonchi or any wheezing. CARDIOVASCULAR: Regular. S1 and S2 normal. No appreciable rubs, murmurs or gallops. ABDOMEN: Soft, nontender, and nondistended. There is no rebound, voluntary guarding, or rigidity. : Deferred. No Hutson. EXTREMITIES: Status post Right BKA. There is some wound dehiscence with some drainage SKIN: No skin breakdown. Vital Signs (last 8hr) Date Time Temp Pulse Resp B/P (MAP) Pulse Ox O2 Delivery O2 Flow Rate FiO2 07/25/24 11:15 97.5 81 20 121/59 96 Room Air 21 07/25/24 08:30 100 Room Air* 0 21 07/25/24 07:49 97.7 94 20 119/56 100 Room Air 21 LABS: Laboratory: Test 07/25/24 10:54 07/24/24 11:42 Range/Units Whole Blood Glucose 189 H 70-110 MG/DL White Blood Count 10.2 4.8-10.8 K/uL Red Blood Count 3.24 L 4.50-6.20 MIL/uL Hemoglobin 9.9 L 14.0-18.0 g/dL Hematocrit 30.7 L 42-54 % Mean Corpuscular Volume 94.8 79-99 fL Mean Corpuscular Hemoglobin 30.6 27.0-33.0 pg Mean Corpuscular Hemoglobin Concent 32.2 32.0-36.0 g/dL Red Cell Distribution Width 14.6 11.0-15.5 % Platelet Count 281 130-400 K/uL Mean Platelet Volume 11.0 H 7.5-10.5 fL Immature Granulocyte % (Auto) 1.8 H 0-1 % Neutrophils (%) (Auto) 61.6 40.0-77.0 % Lymphocytes (%) (Auto) 30.3 21.0-51.0 % Monocytes (%) (Auto) 4.3 3.0-13.0 % Eosinophils (%) (Auto) 1.5 0.0-8.0 % Basophils (%) (Auto) 0.5 0.0-5.0 % Neutrophils # (Auto) 6.3 1.8-7.7 K/uL Lymphocytes # (Auto) 3.1 1.0-4.8 K/uL Monocytes # (Auto) 0.4 0.1-1.0 K/uL Eosinophils # (Auto) 0.15 0.00-0.70 K/uL Basophils # (Auto) 0.05 0.00-0.20 K/uL Absolute Immature Granulocyte (auto 0.18 0-1 K/uL Nucleated Red Blood Cells 0.0 0.0-0.19 % Sodium Level 138 136-145 mmol/L Potassium Level 4.4 3.5-5.1 mmol/L Chloride Level 99 L 101-111 mmol/L Carbon Dioxide Level 29 21-32 mmol/L Blood Urea Nitrogen 56 H 7-18 mg/dL Creatinine 7.1 H 0.5-1.3 mg/dL Glomerular Filtration Rate Calc 8 >90 mL/min Random Glucose 186 H 70-105 mg/dL Total Calcium 7.8 L 8.5-10.1 mg/dL Current Medications Medications (Trade) Dose Ordered Sig/Idania Route PRN Reason Start Time Stop Time Status Last Admin Dose Admin Acetaminophen (TYLenol 325MG TAB) 650 mg Q4H PRN PO TEMPERATURE GREATER THAN 101.5 07/15/24 12:00 08/14/24 11:59 Acetaminophen (TYLenol 325MG TAB) 650 mg Q6H PRN PO MILD PAIN (1-3) 07/15/24 12:00 08/14/24 11:59 Acetaminophen/ Hydrocodone Bitart (NORco 5/325MG) 1 tab Q6H PRN PO MODERATE PAIN (4-6) 07/21/24 15:30 07/26/24 15:29 07/22/24 13:41 1 TAB Albumin Human (Albumin (Human) 25%) 100 ml ONCE IV 07/17/24 11:30 07/18/24 11:29 DC Atorvastatin Calcium (LIPItor 40MG) 40 mg HS PO 07/15/24 21:00 08/14/24 20:59 07/24/24 19:41 40 MG Aztreonam (Azactam) 2 gm Q24H IVPB 07/21/24 09:30 07/21/24 11:00 DC Aztreonam (Azactam) 2 gm Q24H IVPB 07/21/24 11:30 08/04/24 11:29 07/22/24 13:30 2 GM Dextrose (D50w) 50 ml AD PRN IV HYPOGLYCEMIA PROTOCOL 07/15/24 12:00 08/14/24 11:59 Famotidine (Pepcid 20mg Vial) 20 mg Q48H IV 07/15/24 21:00 08/14/24 20:59 07/23/24 20:13 20 MG Glucagon (Glucagon 1mg Kit) 1 mg AD PRN IM HYPOGLYCEMIA PROTOCOL 07/15/24 12:00 08/14/24 11:59 Heparin Sodium (Porcine) (HEParin 5,000 UNIT VIAL) 10,000 unit AD IRRIG 07/17/24 11:30 08/16/24 11:29 07/22/24 13:02 10,000 UNIT Hydromorphone HCl (DiLAUDid 1MG INJ) 1 mg Q4H PRN IVP SEVERE PAIN (7-10) 07/15/24 15:30 07/20/24 15:29 DC 07/19/24 22:52 1 MG Hydromorphone HCl (DiLAUDid 1MG INJ) 1 mg Q4H PRN IVP SEVERE PAIN (7-10) 07/20/24 21:00 07/25/24 20:59 07/25/24 08:57 1 MG Hydromorphone HCl (DiLAUDid 2MG INJ) 2 mg Q4H PRN IVP SEVERE PAIN (7-10) 07/15/24 12:00 07/17/24 10:58 DC 07/16/24 09:17 2 MG Insulin Human Isoph/Insulin Regular (humuLIN 70-30 VIAL) 20 unit ACDINNER SQ 07/24/24 16:30 08/23/24 16:29 Insulin Human Isoph/Insulin Regular (humuLIN 70-30 VIAL) 30 unit DAILYBKFST SQ 07/24/24 08:00 08/23/24 07:59 Insulin Human Regular (humuLIN R 100 UNIT/ML 3ML) INSULIN SLIDING SCAL... ACHS SQ 07/15/24 16:30 07/23/24 18:14 DC 07/23/24 16:59 7 UNIT Insulin Human Regular (humuLIN R 100 UNIT/ML 3ML) INSULIN SLIDING SCAL... ACHS SQ 07/23/24 21:00 08/22/24 20:59 07/25/24 05:54 12 UNIT Leptospermum Honey ([employer] (Closed)ney) APPLY TO RBKA STUMP DAILY TP 07/17/24 17:00 07/22/24 13:43 DC 07/21/24 09:27 1 APPL Linezolid 300 ml @ 150 mls/hr Q12H IV 07/20/24 14:00 07/20/24 16:25 DC Linezolid 300 ml @ 150 mls/hr Q12H IV 07/20/24 20:00 08/02/24 19:59 07/25/24 08:53 150 MLS/HR Lorazepam (AtiVAN) 0.5 mg ONCE PRN IVP ANXIETY/AGITATION 07/18/24 10:00 07/25/24 09:59 DC Magnesium Sulfate 50 ml @ 0 mls/hr PROTOCOL PRN IV MAGNESIUM PROTOCOL 07/15/24 12:00 08/14/24 11:59 Nifedipine (adALAT 30MG) 60 mg DAILY PO 07/15/24 15:30 08/14/24 15:29 07/24/24 08:24 60 MG Ondansetron HCl (zoFRAN 4MG INJ) 4 mg Q6H PRN IVP NAUSEA/VOMITING 07/15/24 12:00 08/14/24 11:59 07/22/24 13:28 4 MG Pharmacy Profile Note (Pharmacy Communication) 1 each ONCE MISC 07/20/24 13:00 07/20/24 13:16 DC Pharmacy Profile Note (Pharmacy Communication) PLEASE PROVIDE DIALY... Q30MIN MISC 07/15/24 12:30 07/15/24 15:13 DC Potassium Chloride 100 ml @ 100 mls/hr AD PRN IV POTASSIUM PROTOCOL 07/15/24 12:00 08/14/24 11:59 Potassium Chloride (K-Dur 10meq Sr Tab) 10 meq AD PRN PO POTASSIUM PROTOCOL 07/17/24 11:30 08/14/24 11:59 Potassium Chloride (K-Dur/Klor-Con 20meq) 10 meq AD PRN PO POTASSIUM PROTOCOL 07/15/24 12:00 07/17/24 11:01 DC Potassium Chloride (KCl 10% Elixir 20meq/15ml) 10 meq AD PRN PO POTASSIUM PROTOCOL 07/15/24 12:00 08/14/24 11:59 Prednisone (deltaSONE/ oraSONE 5MG) 5 mg BID PO 07/15/24 21:00 08/14/24 20:59 07/25/24 08:53 5 MG Sodium Chloride 250 ml @ 125 mls/hr AD IV 07/15/24 15:30 07/17/24 10:58 DC Sodium Chloride 1,000 ml @ 0 mls/hr ONCE IV 07/17/24 11:30 07/22/24 12:03 DC 07/20/24 18:13 100 MLS/HR Sodium Chloride 1,000 ml @ 0 mls/hr ONCE IV 07/22/24 12:00 08/21/24 11:59 07/22/24 12:32 333 MLS/HR Vancomycin HCl (Vancomycin 750mg) 750 mg MWFPHD IVPB 07/17/24 16:00 07/20/24 16:24 DC 07/17/24 17:05 750 MG Vancomycin HCl (Vancomycin Protocol) 1 each AD IV 07/15/24 10:00 07/20/24 16:24 DC DIAGNOSTICS / RADIOLOGY: [ ] ASSESSMENT: [Suspected infection to the right stump, POA Osteomyelitis of right lower extremity stump POA Cellulitis, POA Right BKA, POA End-stage renal disease, on dialysis POA Hyperglycemia with diabetes mellitus, POA Leukocytosis, POA Chronic anemia, POA ] PLAN: Patient was refusing dialysis initially for that reason I have switched the patient to IV Zyvox. As patient is a home dialysis patient and does not want to go to sniff or rehab after discharge for iv antibiotics. started on aztreonam 2 g Q 24 hour today to cover E coli which grew in the culture. Continue Zyvox for MRSA coverage in the wound. Patient had washout of the stump today by Orthopedic. ID consult was requested but infection is refused to see this patient because of phos noncompliance.. We will continue IV antibiotics here ideally he should be going to SNF LTAC to get IV antibiotics but patient would like to go home after surgery for that reason he needs to be followed outpatient for infection disease doctor Dr. Holder can see him as outpatient on dc. Need to coordinate with Nephrology for outpatient antibiotics with dialysis as he does home dialysis antibiotics through dialysis at home and not be feasible. PICC line and midline are contraindicated in ESRD patients were on dialysis. Ideally he should go to LTAC or SNF for IV antibiotics we have talked about this with the patient but he would like to go home. Once final culture is obtained from the surgical site and cleared from orthopedic we can contact Dr. Mera from Nephrology for possible outpatient IV antibiotics. Nephrology on board GI and DVT prophylaxis DVT: SCD's JOSSY SPENCE MD Jul 25, 2024 13:18
--- NOTE | 2024-07-25 13:46 | PN ---
PROGRESS NOTE Date of Service: Jul 25, 2024 Time of Service: 13:45 SUBJECTIVE: Seen at bedside. No new concerns, Denies fever chills and pain.Last HD treatment yesterday tolerated session. REVIEW OF SYSTEMS CONSTITUTIONAL: Denies fever, chills, or fatigue. HEAD/FACE: No signs of trauma. EENT: Denies eye pain, blurred vision, double vision, or light sensitivity. RESPIRATORY: Denies shortness of breath, cough, wheezing CARDIOVASCULAR: Denies chest pain, palpitation, syncope GASTROINTESTINAL/ABDOMINAL: Denies abdominal pain, constipation, diarrhea, nausea or vomiting GENITOURINARY: Denies dysuria or hematuria. MUSCULOSKELETAL: Denies joint pain, tenderness, or trauma. INTEGUMENTARY: Denies rash or itchiness NEUROLOGICAL/PSYCH: Denies anxiety, depression, heat or cold intolerance. PHYSICAL EXAM EYES: Anicteric. Pupils equal and reactive. HENT: No oral thrush seen, moist Oral mucosa NECK: Supple, no JVD or thyromegaly. LUNGS: Good air entry. No rales, no rhonchi. CARDIOVASCULAR: S1, S2 regular. No murmur heard. ABDOMEN: Soft, non tender, bowel sounds present, no organomegaly CENTRAL NERVOUS SYSTEM: Awake, alert, oriented x 3. No focal deficits. SKIN: Partially dehisced surgical wound in the right BKA stump, no drainage, no sign of obvious infection. LYMPHATICS: No peripheral lymphadenopathy MUSCULOSKELETAL: No joint swelling, erythema or tenderness. EXTREMITIES: No cyanosis or clubbing BACK: No deformity, no pressure ulcer. GENITOURINARY: No dysuria or hematuria Vital Signs (last 8hr) Date Time Temp Pulse Resp B/P (MAP) Pulse Ox O2 Delivery O2 Flow Rate FiO2 07/25/24 11:15 97.5 81 20 121/59 96 Room Air 21 07/25/24 08:30 100 Room Air* 0 21 07/25/24 07:49 97.7 94 20 119/56 100 Room Air 21 LABS: Laboratory: Test 07/25/24 10:54 07/24/24 11:42 Range/Units Whole Blood Glucose 189 H 70-110 MG/DL White Blood Count 10.2 4.8-10.8 K/uL Red Blood Count 3.24 L 4.50-6.20 MIL/uL Hemoglobin 9.9 L 14.0-18.0 g/dL Hematocrit 30.7 L 42-54 % Mean Corpuscular Volume 94.8 79-99 fL Mean Corpuscular Hemoglobin 30.6 27.0-33.0 pg Mean Corpuscular Hemoglobin Concent 32.2 32.0-36.0 g/dL Red Cell Distribution Width 14.6 11.0-15.5 % Platelet Count 281 130-400 K/uL Mean Platelet Volume 11.0 H 7.5-10.5 fL Immature Granulocyte % (Auto) 1.8 H 0-1 % Neutrophils (%) (Auto) 61.6 40.0-77.0 % Lymphocytes (%) (Auto) 30.3 21.0-51.0 % Monocytes (%) (Auto) 4.3 3.0-13.0 % Eosinophils (%) (Auto) 1.5 0.0-8.0 % Basophils (%) (Auto) 0.5 0.0-5.0 % Neutrophils # (Auto) 6.3 1.8-7.7 K/uL Lymphocytes # (Auto) 3.1 1.0-4.8 K/uL Monocytes # (Auto) 0.4 0.1-1.0 K/uL Eosinophils # (Auto) 0.15 0.00-0.70 K/uL Basophils # (Auto) 0.05 0.00-0.20 K/uL Absolute Immature Granulocyte (auto 0.18 0-1 K/uL Nucleated Red Blood Cells 0.0 0.0-0.19 % Sodium Level 138 136-145 mmol/L Potassium Level 4.4 3.5-5.1 mmol/L Chloride Level 99 L 101-111 mmol/L Carbon Dioxide Level 29 21-32 mmol/L Blood Urea Nitrogen 56 H 7-18 mg/dL Creatinine 7.1 H 0.5-1.3 mg/dL Glomerular Filtration Rate Calc 8 >90 mL/min Random Glucose 186 H 70-105 mg/dL Total Calcium 7.8 L 8.5-10.1 mg/dL DIAGNOSTICS / RADIOLOGY: MR LOW EXT OTH THAN JNT WO CON HISTORY: Osteomyelitis COMPARISON: None TECHNIQUE: MRI of the right lower extremity was performed utilizing multiple pulse sequences in axial, coronal and sagittal planes. Patient was not given contrast through intravenous route. FINDINGS: Patient is status post below knee amputation. Abnormal increased signal intensity is seen in the proximal tibia and proximal fibula. May be related to osteomyelitis. Adjacent soft tissue swelling is seen suspicious for cellulitis. There appears to be complex fluid with surrounding the distal tibial stump with abscess collection not excluded. No acute displaced fracture or dislocation is seen otherwise. IMPRESSION: 1. Patient is status post below knee amputation. Abnormal increased signal intensity is seen in the proximal tibia and proximal fibula. May be related to osteomyelitis. Adjacent soft tissue swelling is seen suspicious for cellulitis. There appears to be complex fluid with surrounding the distal tibial stump with abscess collection not excluded. ASSESSMENT: End-stage renal disease. The patient is at home dialysis program. Diabetes mellitus type 2 with nephropathy with fairly controlled glycemia. Hypertension with renal manifestation with controlled blood pressure. Anemia of chronic kidney disease. We will continue Epogen. Severe protein calorie malnutrition with an albumin of 1.9. Obesity with history of leg amputation. Peripheral arterial disease and infection. Right stump surgical wound infection. PLAN: Continue Antimicrobials No acute HD today Monitor Nutritional intake, renal diet Fluid restriction 1L QD Monitor Electrolytes Monitor BP. Thank you for the consultation allowing me to participate in the care of your patient. LALITHA KOCHKINSEY Jul 25, 2024 13:46
--- NOTE | 2024-07-25 14:50 | NUR ---
Spoke with patient, advise we will do his dialysis this afternoon. Pt verbalizes its to late and does not want it anymore today. Verbalizes wants it tomorrow. Spoke with MD Mera and notified of the refusal. MD Mera ok with dialysis tomorrow morning due to pt refusal today. Notified primary nurse Ellen BRITO
--- NOTE | 2024-07-25 16:52 | NUR ---
Notes: Met with pt. Pt reports good appetite, 50% PO intake, complains his order has been wrong, refuses tray when he doesnt like the food, NKFA, No N/V, last BM a couple of days ago, no difficulties chewing/swallowing, visits PCP as needed, does hemodialysis at home, consults with RD 2x a month over the phone, monthly lab testing, and denies taking Nephrovite and phosphorus binders. Offered pt Nepro and Ta supplementation per PO intake and wound healing. Pt asked me to consult his Consultant Nurse for safety 1.4 L hemodialysis removal07/22/2024, pt is noncompliant with diet and hemodialysis per chart review. Pt brings him outside food, [employer] raising BG 390 per chart review. Infections disease consult declined per pt noncompliance per charting Pt expected to have poor compliance. Recommendations: Continue Renal Dialysis Diet + 75GMCCD Provide pt with Vit B Complex per dialysis Order phosphorus lab per hx. Dialysis Order A1C per hx. T2DM Order Lipid panel per hx. HLP Order Vit B12 & D to rule out deficiencies Monitor weight, Reweigh as possible Monitor electrolytes, Replenish electrolytes as protocol Monitor goals of care RD to follow + available for consult per protocol Dietetic Student, Vero Wilkinson Addendum: 07/25/24 at [address] Amended: Links added.
--- NOTE | 2024-07-25 19:15 | NUR ---
PATIENT CALLED THAT HE ACCIDENTALLY REMOVED THE HEMOVAC THAT WAS PLACED IN THE OR BY DR. DAVIS. HEMOVAC NOTED AT THE FOOT OF THE BED NOT ATTACHED TO THE PATIENT. HEMOVAC REMOVED AND PLACED IN THE BIOHAZARD CONTAINER. NO BLEEDING NOTED TO RIGHT STUMP. VASELINE GAUZE PLACED ON THE WOUND AND COVERED WITH 4X4 GAUZE AND WRAPPED WITH KERLIX.
[2024-07-25] MEDS ORDERED: ketOROlac 15MG/ML VIAL (15MG/ML) IV PRN (21:30)
[2024-07-25] MEDS: hydroMORPHone 0.5 MG SYG (0.5MG/0.5ML) IVP PRN (21:52)
--- NOTE | 2024-07-25 22:35 | OP ---
DATE OF PROCEDURE: 07/24/2024 PREOPERATIVE DIAGNOSIS: Right leg below-knee amputation stump with wound VAC. POSTOPERATIVE DIAGNOSIS: Right leg below-knee amputation stump with wound VAC. PROCEDURE PERFORMED: Delayed primary closure of right leg below-knee amputation stump. CPT 94809 IV FLUIDS: As per Anesthesia. ESTIMATED BLOOD LOSS: Minimal. COMPLICATIONS: None. SPECIMENS SENT: None. IMPLANTS USED: None. ANTIBIOTICS: The patient is on scheduled antibiotics. INDICATIONS FOR THE PROCEDURE: This is a 59-year-old man who has previously underwent debridement for wound dehiscence of the right leg below-knee amputation stump, followed by application of wound VAC. The patient was brought to the OR for a possible another debridement and possible wound closure and other indicated procedures. All risks and benefits were explained in detail. The patient and family agreed with the above plan. Informed consent was obtained. The patient was correctly identified in the preoperative holding area and the correct patient, correct procedure site, correct extremity, correct plan was confirmed and marked. DESCRIPTION OF PROCEDURE: The patient was taken to the operating room and placed in supine position, underwent general anesthesia by the anesthetic team. After that, the wound VAC was removed. The right below-knee amputation stump was prepped and draped in a sterile fashion. A repeat timeout was done, identifying the correct patient, correct procedure site, correct extremity and the correct plan. Subsequently, we started our procedure by washing the wound with about 3 liters of normal saline. There was very minimal unhealthy tissue present. Therefore, we decided to plan for a delayed primary closure. We did some undermining of the tissues and we started repairing by inserting a drain and then started closing the wound with 0 PDS for the deep fascia, 2-0 PDS for the superficial and then nyla for the skin. The patient tolerated the procedure well. No complications encountered. TID: [id number] RECEIPT: [id number] [facility]
[2024-07-26] VITALS (19 sets, daily range): BP systolic 112–167; BP diastolic 60–85; PULSE 78–97; RESP 14–20; TEMP 97.7–99; O2SAT 98
[2024-07-26 06:42] LABS: BASOPHILS # (AUTO) 0.07 K/uL (0.00-0.20); BASOPHILS % (AUTO) 0.6 % (0.0-5.0); EOSINOPHILS % (AUTO) 0.9 % (0.0-8.0); HEMATOCRIT 27.1 % (42-54); IMMATURE GRANULOCYTE ABSOLUTE 0.09 K/uL (0-1); LYMPHOCYTES # (AUTO) 1.4 K/uL (1.0-4.8); LYMPHOCYTES % (AUTO) 12.6 % (21.0-51.0); MEAN CORPUSCULAR HEMOGLOBIN 30.3 pg (27.0-33.0); MEAN CORPUSCULAR HGB CONC 31.7 g/dL (32.0-36.0); MEAN CORPUSCULAR VOLUME 95.4 fL (79-99); MONOCYTES # (AUTO) 0.6 K/uL (0.1-1.0); MONOCYTES % (AUTO) 5.5 % (3.0-13.0); NEUTROPHILS # (AUTO) 8.8 K/uL (1.8-7.7); NEUTROPHILS % (AUTO) 79.6 % (40.0-77.0); PLATELET COUNT (AUTO) 236 K/uL (130-400); RED BLOOD CELL COUNT(AUTO) 2.84 MIL/uL (4.50-6.20); RED CELL DISTRIBUTION WIDTH 14.7 % (11.0-15.5); WHITE BLOOD COUNT (AUTO) 11.1 K/uL (4.8-10.8)
[2024-07-26 09:17] LABS: PHOSPHORUS 7.9 mg/dL (2.5-4.9)
[2024-07-26 09:22] LABS: HEMOGLOBIN A1C 7.8 % (4.0-6.0)
--- NOTE | 2024-07-26 11:09 | CONS ---
REASON FOR CONSULTATION: "IV antibiotics." HISTORY OF PRESENT ILLNESS: This 59-year-old man treated for autoimmune disease with Remicade. He did lost my followup last several months. He was admitted by the hospitalist on 07/15/2024 with a wound infection and osteomyelitis. Ultimately, he has had amputation. He is on IV antibiotics and they called me for "IV antibiotic management" as an outpatient. PAST MEDICAL HISTORY: End-stage renal disease, hypertension, psoriasis, psoriatic arthritis, hyperlipidemia, diabetes, peripheral arterial disease. PAST SURGICAL HISTORY: He has had multiple AV grafts, cholecystectomy, neck surgery, wrist surgery, right below-knee amputation. MEDICATIONS: See intake sheet. ALLERGIES: PENICILLIN AND SULFA. FAMILY HISTORY: Diabetes. SOCIAL HISTORY: Does not smoke or drink. Disabled due to his problems. REVIEW OF SYSTEMS: HEENT: Negative. CARDIOVASCULAR: Negative for chest pain, palpitations, or PND. PULMONARY: cough. GASTROINTESTINAL: . GENITOURINARY: No hematuria or dysuria. PHYSICAL EXAMINATION: GENERAL: Shows a pleasant man. VITAL SIGNS: Blood pressure 149/68, pulse 86, respirations 20. HEENT: Benign. NECK: Supple. CHEST: Clear. HEART: Regular rate and rhythm. ABDOMEN: Soft. EXTREMITIES: Show right below-knee amputation with stump. Extremities show edema. NEUROLOGIC: Awake and oriented. LABORATORY DATA: Labs reviewed. CBC: WBC 11, hemoglobin 8, platelets 236,000. Apparently, his cultures from the wound showed E. coli and MRSA, I do not have the sensitivities. IMPRESSION AND PLAN: Polymicrobial wound infection, immunocompromised from psoriasis; end-stage renal disease, on hemodialysis; leg amputation. help with the treatment. I need to clarify the antibiotics he needs and I do not have access to the sensitivities of these cultures reported. I have reached out to Dr. Bernal to coordinate care. He can be discharged today if we can set up the IV antibiotics. He will need a PICC line for outpatient treatment. TID: [id number] RECEIPT: [id number]
--- NOTE | 2024-07-26 14:53 | PN ---
PROGRESS NOTE Date of Service: Jul 26, 2024 Time of Service: 14:49 SUBJECTIVE: Seen at bedside. No new concerns, Denies fever chills and pain.Tolerated HD treatment earlier today REVIEW OF SYSTEMS CONSTITUTIONAL: Denies fever, chills, or fatigue. HEAD/FACE: No signs of trauma. EENT: Denies eye pain, blurred vision, double vision, or light sensitivity. RESPIRATORY: Denies shortness of breath, cough, wheezing CARDIOVASCULAR: Denies chest pain, palpitation, syncope GASTROINTESTINAL/ABDOMINAL: Denies abdominal pain, constipation, diarrhea, nausea or vomiting GENITOURINARY: Denies dysuria or hematuria. MUSCULOSKELETAL: Denies joint pain, tenderness, or trauma. INTEGUMENTARY: Denies rash or itchiness NEUROLOGICAL/PSYCH: Denies anxiety, depression, heat or cold intolerance. PHYSICAL EXAM EYES: Anicteric. Pupils equal and reactive. HENT: No oral thrush seen, moist Oral mucosa NECK: Supple, no JVD or thyromegaly. LUNGS: Good air entry. No rales, no rhonchi. CARDIOVASCULAR: S1, S2 regular. No murmur heard. ABDOMEN: Soft, non tender, bowel sounds present, no organomegaly CENTRAL NERVOUS SYSTEM: Awake, alert, oriented x 3. No focal deficits. SKIN: Partially dehisced surgical wound in the right BKA stump, no drainage, no sign of obvious infection. LYMPHATICS: No peripheral lymphadenopathy MUSCULOSKELETAL: No joint swelling, erythema or tenderness. EXTREMITIES: No cyanosis or clubbing BACK: No deformity, no pressure ulcer. GENITOURINARY: No dysuria or hematuria Vital Signs (last 8hr) Date Time Temp Pulse Resp B/P (MAP) Pulse Ox O2 Delivery O2 Flow Rate FiO2 07/26/24 11:58 97.7 80 14 140/72 Room Air 07/26/24 11:45 84 14 132/67 Room Air 07/26/24 11:43 97.7 82 20 125/60 99 Room Air 21 07/26/24 11:30 85 14 139/80 Room Air 07/26/24 11:15 85 14 136/82 Room Air 07/26/24 11:00 82 14 125/60 Room Air 07/26/24 10:45 78 14 159/80 Room Air 07/26/24 10:30 79 14 155/85 Room Air 07/26/24 10:15 78 14 167/84 Room Air 07/26/24 10:00 81 14 133/70 Room Air 07/26/24 09:45 83 14 154/81 Room Air 07/26/24 09:30 83 14 144/76 Room Air 07/26/24 09:15 99.0 81 14 124/67 Room Air 07/26/24 08:50 99.0 87 14 112/76 Room Air 07/26/24 08:00 98 Room Air* 0 21 07/26/24 07:53 98.4 97 20 139/64 98 Room Air 21 LABS: Laboratory: Test 07/26/24 11:14 07/26/24 06:12 Range/Units Whole Blood Glucose 109 70-110 MG/DL White Blood Count 11.1 H 4.8-10.8 K/uL Red Blood Count 2.84 L 4.50-6.20 MIL/uL Hemoglobin 8.6 L 14.0-18.0 g/dL Hematocrit 27.1 L 42-54 % Mean Corpuscular Volume 95.4 79-99 fL Mean Corpuscular Hemoglobin 30.3 27.0-33.0 pg Mean Corpuscular Hemoglobin Concent 31.7 L 32.0-36.0 g/dL Red Cell Distribution Width 14.7 11.0-15.5 % Platelet Count 236 130-400 K/uL Mean Platelet Volume 11.0 H 7.5-10.5 fL Immature Granulocyte % (Auto) 0.8 0-1 % Neutrophils (%) (Auto) 79.6 H 40.0-77.0 % Lymphocytes (%) (Auto) 12.6 L 21.0-51.0 % Monocytes (%) (Auto) 5.5 3.0-13.0 % Eosinophils (%) (Auto) 0.9 0.0-8.0 % Basophils (%) (Auto) 0.6 0.0-5.0 % Neutrophils # (Auto) 8.8 H 1.8-7.7 K/uL Lymphocytes # (Auto) 1.4 1.0-4.8 K/uL Monocytes # (Auto) 0.6 0.1-1.0 K/uL Eosinophils # (Auto) 0.10 0.00-0.70 K/uL Basophils # (Auto) 0.07 0.00-0.20 K/uL Absolute Immature Granulocyte (auto 0.09 0-1 K/uL Nucleated Red Blood Cells 0.0 0.0-0.19 % Hemoglobin A1c 7.8 H 4.0-6.0 % Estimated Average Glucose (eAG) 177 H 70-126 mg/dL Phosphorus Level 7.9 H 2.5-4.9 mg/dL Triglycerides Level 119 30-200 mg/dL Cholesterol Level 121 <200 mg/dL LDL Cholesterol 52 0-99 mg/dL HDL Cholesterol 54 29-71 mg/dL Vitamin B12 Level 547 193-986 pg/mL Vitamin D 25-Hydroxy 10.4 30.0-100.0 ng/mL DIAGNOSTICS / RADIOLOGY: MR LOW EXT OTH THAN JNT WO CON HISTORY: Osteomyelitis COMPARISON: None TECHNIQUE: MRI of the right lower extremity was performed utilizing multiple pulse sequences in axial, coronal and sagittal planes. Patient was not given contrast through intravenous route. FINDINGS: Patient is status post below knee amputation. Abnormal increased signal intensity is seen in the proximal tibia and proximal fibula. May be related to osteomyelitis. Adjacent soft tissue swelling is seen suspicious for cellulitis. There appears to be complex fluid with surrounding the distal tibial stump with abscess collection not excluded. No acute displaced fracture or dislocation is seen otherwise. IMPRESSION: 1. Patient is status post below knee amputation. Abnormal increased signal intensity is seen in the proximal tibia and proximal fibula. May be related to osteomyelitis. Adjacent soft tissue swelling is seen suspicious for cellulitis. There appears to be complex fluid with surrounding the distal tibial stump with abscess collection not excluded. ASSESSMENT: End-stage renal disease. The patient is at home dialysis program. Diabetes mellitus type 2 with nephropathy with fairly controlled glycemia. Hypertension with renal manifestation with controlled blood pressure. Anemia of chronic kidney disease. We will continue Epogen. Severe protein calorie malnutrition with an albumin of 1.9. Obesity with history of leg amputation. Peripheral arterial disease and infection. Right stump surgical wound infection. PLAN: Continue Antimicrobials HD today Monitor Nutritional intake, renal diet Fluid restriction 1L QD Monitor Electrolytes Monitor BP. Thank you for the consultation allowing me to participate in the care of your patient. LALITHA KOCH [facility] Jul 26, 2024 14:53
[2024-07-26 15:13] LABS: INR 1.05 (0.85-1.15); PROTHROMBIN TIME 11.1 SEC (9.6-11.6)
--- NOTE | 2024-07-26 17:02 | HMCIMG ---
CHEST 1VW HISTORY: PICC line placement COMPARISON: 06/02/1999 FINDINGS: A frontal projection of the chest was obtained. No acute pulmonary infiltrates is seen. The heart is borderline enlarged. Right venous catheter is seen with distal tip in the plane of the superior vena cava. All the lines and tubes are again seen in place. No evidence of aortic calcification is seen. IMPRESSION: 1. No acute pulmonary infiltrate is seen.
--- NOTE | 2024-07-26 17:18 | NUR ---
PICCLINE PLACEMENT Dr. Kerr notified of x-ray results regarding picccline placement verification, per MD preston to use piccline.
--- NOTE | 2024-07-26 22:20 | PN ---
[facility] PROGRESS NOTE Date of Service: Jul 26, 2024 Time of Service: 22:18 SUBJECTIVE: [59-year-old male with history of end-stage renal disease on dialysis Wednesday, status post right BKA back in May of 2024 who presented to the emergency department with right BKA stump bleeding, associated with redness and pain. Initial x-ray did not show displacement or fracture but did show diffuse soft tissue swelling, below-knee amputation changes are seen, no obvious erosive changes to suggest osteomyelitis. Patient is afebrile, WBCs downtrending today. We will await for further recommendations from orthopedic surgeon, Dr. Montes we will be back on the 18 of July. 07/18/24 : pt seen and examined along with RN , no new complaints, wound cultures grew mrsa, mri pedning ] 07/19/24 patient seen and examined today morning, he is asymptomatic and denies any acute changes overnight. His WBC is down trending 13.1 from 14.3. BUN 51, creatinine 6.6. Lower extremity MRI was done yesterday and the results are yet to be read. I called the Radiology and I was told that it will be read soon. 07/20/2024. Patient was seen and examined along with RN. Patient was seen by Orthopedic surgery today. Plan to do surgery today or tomorrow. White count remains elevated. MRI report was discussed with him yesterday on the phone and his wound on the right lower extremity stump has opened up and is draining serosanguineous fluid. He will get hemodialysis today 07/21/2024: pt seen along with rn, he will be going to or today , wound is growing MRSA and Ecoli , will add on Aztrenam and continue zyvox. 07/22/24 patient was seen and examined. Case discussed with the RN. He was had a wound VAC placed and is on broad-spectrum antibiotics. Await placement 07/23/24 patient seen and examined. Case discussed with the RN. Is tolerating the wound VAC denies any complaints. Dr. Arevalo likely would take him for OR on Wednesday to look at the wound and consider closure 07/24/24 patient was seen and examined and case discussed with the RN. No nausea vomiting fever chills 07/25/24 patient was seen and examined case discussed with the RN. Patient is doing well and is waiting for acceptance at [facility] 07/26/24 patient was seen and examined case discussed with the RN/DW Dr taylor and he is willing to administer IV abx through his clinic. will get PICC line REVIEW OF SYSTEMS CONSTITUTIONAL: Denies fevers, chills, or night sweats. No unintentional weight loss reported. NEUROLOGICAL: Denies headache, amaurosis fugax, motor weakness, sensory deficit , vertigo/spinning sensation, gait abnormalities, or tremors. ENT: No hearing loss, otalgia, otorrhea, rhinitis, rhinorrhea, hoarseness, or sore throat. CARDIOVASCULAR: Denies any exertional angina, dyspnea on exertion, orthopnea, paroxysmal nocturnal dyspnea, palpitations, life-threatening arrhythmias, claudication. PULMONARY: Denies any shortness of breath, cough, phlegm/sputum, hemoptysis, pleuritic chest pain. SLEEP: Denies morning headaches, daytime somnolence or napping. Denies difficulty falling asleep, staying asleep, waking from sleep. Denies knowledge of snoring. GASTROINTESTINAL: Denies any type of dysphagia to either liquids or solids. Denies nausea, vomiting, pyrosis, early satiety, abdominal pain, diarrhea, constipation, or changes in stool consistency or caliber. Denies coffee-ground emesis, hematemesis, hematochezia, or melanotic stools. GENITOURINARY: Denies frequency, urgency, nocturia, hematuria or incontinence . ENDOCRINOLOGIC: Denies polyuria, polydipsia, polyphagia or heat/cold intolerances. HEMATOLOGIC: Denies thrombophilia/previous clots, or coagulopathy/bleeding disorders. ONCOLOGIC: Denies personal history of malignancy. PSYCHIATRIC: Denies any suicidal or homicidal ideation. Denies hallucinations. PHYSICAL EXAM GENERAL APPEARANCE: The patient is awake, alert, and oriented, in no acute c ardiopulmonary distress. NEUROLOGICAL: Cranial nerves II-XII grossly intact. Motor is 5/5 in bilateral upper and lower extremities proximal to distal. No sensory deficits. HEENT: Face is symmetric. Pupils are equal and reactive. Extraocular movements are intact. NECK: Supple. No JVD. No thyromegaly. No submental, submandibular, pre- /postauricular, occipital or supraclavicular lymphadenopathy. CHEST: Normal chest expansion. No Telemetry. LUNGS: Absence of any rales, rhonchi or any wheezing. CARDIOVASCULAR: Regular. S1 and S2 normal. No appreciable rubs, murmurs or gallops. ABDOMEN: Soft, nontender, and nondistended. There is no rebound, voluntary guarding, or rigidity. : Deferred. No Hutson. EXTREMITIES: Status post Right BKA. There is some wound dehiscence with some drainage SKIN: No skin breakdown. Vital Signs (last 8hr) Date Time Temp Pulse Resp B/P (MAP) Pulse Ox O2 Delivery O2 Flow Rate FiO2 07/26/24 15:10 97.9 87 20 137/65 96 Room Air 21 LABS: Laboratory: Test 07/26/24 19:53 07/26/24 14:32 07/26/24 06:12 Range/Units Whole Blood Glucose 147 H 70-110 MG/DL Prothrombin Time 11.1 9.6-11.6 SEC Prothromb Time International Ratio 1.05 0.85-1.15 White Blood Count 11.1 H 4.8-10.8 K/uL Red Blood Count 2.84 L 4.50-6.20 MIL/uL Hemoglobin 8.6 L 14.0-18.0 g/dL Hematocrit 27.1 L 42-54 % Mean Corpuscular Volume 95.4 79-99 fL Mean Corpuscular Hemoglobin 30.3 27.0-33.0 pg Mean Corpuscular Hemoglobin Concent 31.7 L 32.0-36.0 g/dL Red Cell Distribution Width 14.7 11.0-15.5 % Platelet Count 236 130-400 K/uL Mean Platelet Volume 11.0 H 7.5-10.5 fL Immature Granulocyte % (Auto) 0.8 0-1 % Neutrophils (%) (Auto) 79.6 H 40.0-77.0 % Lymphocytes (%) (Auto) 12.6 L 21.0-51.0 % Monocytes (%) (Auto) 5.5 3.0-13.0 % Eosinophils (%) (Auto) 0.9 0.0-8.0 % Basophils (%) (Auto) 0.6 0.0-5.0 % Neutrophils # (Auto) 8.8 H 1.8-7.7 K/uL Lymphocytes # (Auto) 1.4 1.0-4.8 K/uL Monocytes # (Auto) 0.6 0.1-1.0 K/uL Eosinophils # (Auto) 0.10 0.00-0.70 K/uL Basophils # (Auto) 0.07 0.00-0.20 K/uL Absolute Immature Granulocyte (auto 0.09 0-1 K/uL Nucleated Red Blood Cells 0.0 0.0-0.19 % Hemoglobin A1c 7.8 H 4.0-6.0 % Estimated Average Glucose (eAG) 177 H 70-126 mg/dL Phosphorus Level 7.9 H 2.5-4.9 mg/dL Triglycerides Level 119 30-200 mg/dL Cholesterol Level 121 <200 mg/dL LDL Cholesterol 52 0-99 mg/dL HDL Cholesterol 54 29-71 mg/dL Vitamin B12 Level 547 193-986 pg/mL Vitamin D 25-Hydroxy 10.4 30.0-100.0 ng/mL Current Medications Medications (Trade) Dose Ordered Sig/Idania Route PRN Reason Start Time Stop Time Status Last Admin Dose Admin Acetaminophen (TYLenol 325MG TAB) 650 mg Q4H PRN PO TEMPERATURE GREATER THAN 101.5 07/15/24 12:00 08/14/24 11:59 Acetaminophen (TYLenol 325MG TAB) 650 mg Q6H PRN PO MILD PAIN (1-3) 07/15/24 12:00 08/14/24 11:59 Acetaminophen/ Hydrocodone Bitart (NORco 5/325MG) 1 tab Q6H PRN PO MODERATE PAIN (4-6) 07/21/24 15:30 07/26/24 15:29 DC 07/22/24 13:41 1 TAB Albumin Human (Albumin (Human) 25%) 100 ml ONCE IV 07/17/24 11:30 07/18/24 11:29 DC Atorvastatin Calcium (LIPItor 40MG) 40 mg HS PO 07/15/24 21:00 08/14/24 20:59 07/26/24 21:00 40 MG Aztreonam (Azactam) 2 gm Q24H IVPB 07/21/24 09:30 07/21/24 11:00 DC Aztreonam (Azactam) 2 gm Q24H IVPB 07/21/24 11:30 08/04/24 11:29 07/26/24 12:22 2 GM Dextrose (D50w) 50 ml AD PRN IV HYPOGLYCEMIA PROTOCOL 07/15/24 12:00 08/14/24 11:59 Famotidine (Pepcid 20mg Vial) 20 mg Q48H IV 07/15/24 21:00 08/14/24 20:59 07/25/24 21:52 20 MG Glucagon (Glucagon 1mg Kit) 1 mg AD PRN IM HYPOGLYCEMIA PROTOCOL 07/15/24 12:00 08/14/24 11:59 Heparin Sodium (Porcine) (HEParin 5,000 UNIT VIAL) 10,000 unit AD IRRIG 07/17/24 11:30 08/16/24 11:29 07/26/24 12:03 10,000 UNIT Hydromorphone HCl (DiLAUDid 0.5MG INJ) 0.5 mg Q4H PRN IVP SEVERE PAIN (7-10) 07/25/24 22:00 07/30/24 21:59 07/26/24 21:10 0.5 MG Hydromorphone HCl (DiLAUDid 1MG INJ) 1 mg Q4H PRN IVP SEVERE PAIN (7-10) 07/15/24 15:30 07/20/24 15:29 DC 07/19/24 22:52 1 MG Hydromorphone HCl (DiLAUDid 1MG INJ) 1 mg Q4H PRN IVP SEVERE PAIN (7-10) 07/20/24 21:00 07/25/24 20:59 DC 07/25/24 08:57 1 MG Hydromorphone HCl (DiLAUDid 2MG INJ) 2 mg Q4H PRN IVP SEVERE PAIN (7-10) 07/15/24 12:00 07/17/24 10:58 DC 07/16/24 09:17 2 MG Insulin Human Isoph/Insulin Regular (humuLIN 70-30 VIAL) 20 unit ACDINNER SQ 07/24/24 16:30 08/23/24 16:29 Insulin Human Isoph/Insulin Regular (humuLIN 70-30 VIAL) 30 unit DAILYBKFST SQ 07/24/24 08:00 08/23/24 07:59 Insulin Human Regular (humuLIN R 100 UNIT/ML 3ML) INSULIN SLIDING SCAL... ACHS SQ 07/15/24 16:30 07/23/24 18:14 DC 07/23/24 16:59 7 UNIT Insulin Human Regular (humuLIN R 100 UNIT/ML 3ML) INSULIN SLIDING SCAL... ACHS SQ 07/23/24 21:00 08/22/24 20:59 07/26/24 05:54 4 UNIT Ketorolac Tromethamine (toRADol) 15 mg Q6H PRN IV MODERATE PAIN (4-6) 07/25/24 21:30 07/25/24 21:22 DC Leptospermum Honey (Medihoney) APPLY TO RBKA STUMP DAILY TP 07/17/24 17:00 07/22/24 13:43 DC 07/21/24 09:27 1 APPL Linezolid 300 ml @ 150 mls/hr Q12H IV 07/20/24 14:00 07/20/24 16:25 DC Linezolid 300 ml @ 150 mls/hr Q12H IV 07/20/24 20:00 08/02/24 19:59 07/26/24 20:59 150 MLS/HR Lorazepam (AtiVAN) 0.5 mg ONCE PRN IVP ANXIETY/AGITATION 07/18/24 10:00 07/25/24 09:59 DC Magnesium Sulfate 50 ml @ 0 mls/hr PROTOCOL PRN IV MAGNESIUM PROTOCOL 07/15/24 12:00 08/14/24 11:59 Nifedipine (adALAT 30MG) 60 mg DAILY PO 07/15/24 15:30 08/14/24 15:29 07/24/24 08:24 60 MG Ondansetron HCl (zoFRAN 4MG INJ) 4 mg Q6H PRN IVP NAUSEA/VOMITING 07/15/24 12:00 08/14/24 11:59 07/22/24 13:28 4 MG Pharmacy Profile Note (Pharmacy Communication) 1 each ONCE MISC 07/20/24 13:00 07/20/24 13:16 DC Pharmacy Profile Note (Pharmacy Communication) PLEASE PROVIDE DIALY... Q30MIN MISC 07/15/24 12:30 07/15/24 15:13 DC Potassium Chloride 100 ml @ 100 mls/hr AD PRN IV POTASSIUM PROTOCOL 07/15/24 12:00 08/14/24 11:59 Potassium Chloride (K-Dur 10meq Sr Tab) 10 meq AD PRN PO POTASSIUM PROTOCOL 07/17/24 11:30 08/14/24 11:59 Potassium Chloride (K-Dur/Klor-Con 20meq) 10 meq AD PRN PO POTASSIUM PROTOCOL 07/15/24 12:00 07/17/24 11:01 DC Potassium Chloride (KCl 10% Elixir 20meq/15ml) 10 meq AD PRN PO POTASSIUM PROTOCOL 07/15/24 12:00 08/14/24 11:59 Prednisone (deltaSONE/ oraSONE 5MG) 5 mg BID PO 07/15/24 21:00 08/14/24 20:59 07/26/24 21:00 5 MG Sodium Chloride 250 ml @ 125 mls/hr AD IV 07/15/24 15:30 07/17/24 10:58 DC Sodium Chloride 1,000 ml @ 0 mls/hr ONCE IV 07/17/24 11:30 07/22/24 12:03 DC 07/20/24 18:13 100 MLS/HR Sodium Chloride 1,000 ml @ 0 mls/hr ONCE IV 07/22/24 12:00 08/21/24 11:59 07/26/24 09:32 100 MLS/HR Vancomycin HCl (Vancomycin 750mg) 750 mg MWFPHD IVPB 07/17/24 16:00 07/20/24 16:24 DC 07/17/24 17:05 750 MG Vancomycin HCl (Vancomycin Protocol) 1 each AD IV 07/15/24 10:00 07/20/24 16:24 DC DIAGNOSTICS / RADIOLOGY: [ ] ASSESSMENT: [Suspected infection to the right stump, POA Osteomyelitis of right lower extremity stump POA Cellulitis, POA Right BKA, POA End-stage renal disease, on dialysis POA Hyperglycemia with diabetes mellitus, POA Leukocytosis, POA Chronic anemia, POA ] PLAN: Patient was refusing dialysis initially for that reason I have switched the patient to IV Zyvox. As patient is a home dialysis patient and does not want to go to sniff or rehab after discharge for iv antibiotics. started on aztreonam 2 g Q 24 hour today to cover E coli which grew in the culture. Continue Zyvox for MRSA coverage in the wound. Patient had washout of the stump today by Orthopedic. ID consult was requested but infection is refused to see this patient because of phos noncompliance.. We will continue IV antibiotics here ideally he should be going to SNF LTAC to get IV antibiotics but patient would like to go home after surgery for that reason he needs to be followed outpatient for infection disease doctor Dr. Holder can see him as outpatient on dc. Need to coordinate with Nephrology for outpatient antibiotics with dialysis as he does home dialysis antibiotics through dialysis at home and not be feasible. PICC line and midline are contraindicated in ESRD patients were on dialysis. Ideally he should go to LTAC or SNF for IV antibiotics we have talked about this with the patient but he would like to go home. Once final culture is obtained from the surgical site and cleared from orthopedic we can contact Dr. Mera from Nephrology for possible outpatient IV antibiotics. Nephrology on board GI and DVT prophylaxis DVT: SCD's JOSSY SPENCE MD Jul 26, 2024 22:20
[2024-07-27] VITALS: BP 187/77; PULSE 74; RESP 18; TEMP 98.4
[2024-07-27 03:59] VITALS: BP 130/73; PULSE 79; RESP 20; TEMP 99.2
[2024-07-27 07:50] VITALS: O2SAT 97
[2024-07-27 07:57] VITALS: BP 129/76; PULSE 69; RESP 17; TEMP 98.6
--- NOTE | 2024-07-27 09:30 | PN ---
SUBJECTIVE: The patient did well overnight. No fever, sweats or other complaints. He is treated with osteomyelitis of the stump. He has got E. coli and MRSA. He is stable on antibiotics. The hospitalist put in a PICC line yesterday. I appreciate his help. PHYSICAL EXAMINATION: GENERAL: Shows older man. VITAL SIGNS: Blood pressure 129/80, ____. IMPRESSION: * Stump infection, needs prolonged antibiotics. * End-stage renal disease, on hemodialysis or psoriatic arthritis, previously on immunotherapy, osteomyelitis extremity, hyperglycemia, diabetes. PLAN: Continue medical management. I am happy to help you with antibiotics. I told him I would be happy to do this in my office. The hospitalists apparently reaching out to Dr. Mera see if he can do it, if they want I am happy to do this in my clinic or set up to do infusions. TID: [id number] RECEIPT: [id number]
[2024-07-27 11:12] VITALS: BP 125/60; PULSE 83; RESP 19; TEMP 98.6
--- NOTE | 2024-07-27 14:58 | PN ---
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 Initial x-ray did not show displacement or fracture but did show diffuse soft tissue swelling, below-knee amputation changes are seen, no obvious erosive changes to suggest osteomyelitis. Patient is afebrile, WBCs downtrending today. We will await for further recommendations from orthopedic surgeon, Dr. Montes we will be back on the 18 of July. 07/18/24 : pt seen and examined along with RN , no new complaints, wound cultures grew mrsa, mri pedning ] 07/19/24 patient seen and examined today morning, he is asymptomatic and denies any acute changes overnight. His WBC is down trending 13.1 from 14.3. BUN 51, creatinine 6.6. Lower extremity MRI was done yesterday and the results are yet to be read. I called the Radiology and I was told that it will be read soon. 07/20/2024. Patient was seen and examined along with RN. Patient was seen by Orthopedic surgery today. Plan to do surgery today or tomorrow. White count remains elevated. MRI report was discussed with him yesterday on the phone and his wound on the right lower extremity stump has opened up and is draining serosanguineous fluid. He will get hemodialysis today 07/21/2024: pt seen along with rn, he will be going to or today , wound is growing MRSA and Ecoli , will add on Aztrenam and continue zyvox. 07/22/24 patient was seen and examined. Case discussed with the RN. He was had a wound VAC placed and is on broad-spectrum antibiotics. Await placement 07/23/24 patient seen and examined. Case discussed with the RN. Is tolerating the wound VAC denies any complaints. Dr. Arevalo likely would take him for OR on Wednesday to look at the wound and consider closure 07/24/24 patient was seen and examined and case discussed with the RN. No nausea vomiting fever chills 07/25/24 patient was seen and examined case discussed with the RN. Patient is doing well and is waiting for acceptance at [facility] 07/26/24 patient was seen and examined case discussed with the RN/DW Dr taylor and he is willing to administer IV abx through his clinic. will get PICC line 07/27/24: Patient was seen and examined this morning at bedside. The patient is doing well. The patient denies shortness of breath, chest pain, nausea, vomiting, fever, chills, vomiting, diarrhea. The patient will be getting IV antibiotics through his PICC line at Dr. Duggan office during his dialysis on Wednesday, Wednesday, and Wednesday. The patient has a PICC line. I spoke to pharmacy, who assisted me with the correct renal dosages of the following antibiotics: Linezolid and Azetronam. He is to get Azetronam 1-2g after dialysis, and 600 mg of Linezolid, for a total of 4 weeks. He will get a CBC and a CMP 2x a week, for a total of [address] Joe office to monitor his response to the antibiotics. REVIEW OF SYSTEMS CONSTITUTIONAL: Denies fevers, chills, or night sweats. No unintentional weight loss reported. NEUROLOGICAL: Denies headache, amaurosis fugax, motor weakness, sensory deficit, vertigo/spinning sensation, gait abnormalities, or tremors. ENT: No hearing loss, otalgia, otorrhea, rhinitis, rhinorrhea, hoarseness, or sore throat. CARDIOVASCULAR: Denies any exertional angina, dyspnea on exertion, orthopnea, paroxysmal nocturnal dyspnea, palpitations, life-threatening arrhythmias, claudication. PULMONARY: Denies any shortness of breath, cough, phlegm/sputum, hemoptysis, pleuritic chest pain. SLEEP: Denies morning headaches, daytime somnolence or napping. Denies difficulty falling asleep, staying asleep, waking from sleep. Denies knowledge of snoring. GASTROINTESTINAL: Denies any type of dysphagia to either liquids or solids. Denies nausea, vomiting, pyrosis, early satiety, abdominal pain, diarrhea, constipation, or changes in stool consistency or caliber. Denies coffee-ground emesis, hematemesis, hematochezia, or melanotic stools. GENITOURINARY: Denies frequency, urgency, nocturia, hematuria or incontinence . ENDOCRINOLOGIC: Denies polyuria, polydipsia, polyphagia or heat/cold intolerances. HEMATOLOGIC: Denies thrombophilia/previous clots, or coagulopathy/bleeding d isorders. ONCOLOGIC: Denies personal history of malignancy. PSYCHIATRIC: Denies any suicidal or homicidal ideation. Denies hallucinations. PHYSICAL EXAM GENERAL APPEARANCE: The patient is awake, alert, and oriented, in no acute cardiopulmonary distress. NEUROLOGICAL: Cranial nerves II-XII grossly intact. Motor is 5/5 in bilateral upper and lower extremities proximal to distal. No sensory deficits. HEENT: Face is symmetric. Pupils are equal and reactive. Extraocular movements are intact. NECK: Supple. No JVD. No thyromegaly. No submental, submandibular, pre- /postauricular, occipital or supraclavicular lymphadenopathy. CHEST: Normal chest expansion. No Telemetry. LUNGS: Absence of any rales, rhonchi or any wheezing. CARDIOVASCULAR: Regular. S1 and S2 normal. No appreciable rubs, murmurs or gallops. ABDOMEN: Soft, nontender, and nondistended. There is no rebound, voluntary guarding, or rigidity. : Deferred. No Hutson. EXTREMITIES: Status post Right BKA. There is some wound dehiscence with some drainage SKIN: No skin breakdown. Vital Signs (last 8hr) Date Time Temp Pulse Resp B/P (MAP) Pulse Ox O2 Delivery O2 Flow Rate FiO2 07/27/24 11:12 98.6 83 19 125/60 97 Room Air 21 07/27/24 07:57 98.6 69 17 129/76 90 Room Air 21 07/27/24 07:50 97 Room Air* 0 21 LABS: Laboratory: Test 07/27/24 10:58 07/26/24 14:32 07/26/24 06:12 Range/Units Whole Blood Glucose 190 H 70-110 MG/DL Prothrombin Time 11.1 9.6-11.6 SEC Prothromb Time International Ratio 1.05 0.85-1.15 White Blood Count 11.1 H 4.8-10.8 K/uL Red Blood Count 2.84 L 4.50-6.20 MIL/uL Hemoglobin 8.6 L 14.0-18.0 g/dL Hematocrit 27.1 L 42-54 % Mean Corpuscular Volume 95.4 79-99 fL Mean Corpuscular Hemoglobin 30.3 27.0-33.0 pg Mean Corpuscular Hemoglobin Concent 31.7 L 32.0-36.0 g/dL Red Cell Distribution Width 14.7 11.0-15.5 % Platelet Count 236 130-400 K/uL Mean Platelet Volume 11.0 H 7.5-10.5 fL Immature Granulocyte % (Auto) 0.8 0-1 % Neutrophils (%) (Auto) 79.6 H 40.0-77.0 % Lymphocytes (%) (Auto) 12.6 L 21.0-51.0 % Monocytes (%) (Auto) 5.5 3.0-13.0 % Eosinophils (%) (Auto) 0.9 0.0-8.0 % Basophils (%) (Auto) 0.6 0.0-5.0 % Neutrophils # (Auto) 8.8 H 1.8-7.7 K/uL Lymphocytes # (Auto) 1.4 1.0-4.8 K/uL Monocytes # (Auto) 0.6 0.1-1.0 K/uL Eosinophils # (Auto) 0.10 0.00-0.70 K/uL Basophils # (Auto) 0.07 0.00-0.20 K/uL Absolute Immature Granulocyte (auto 0.09 0-1 K/uL Nucleated Red Blood Cells 0.0 0.0-0.19 % Hemoglobin A1c 7.8 H 4.0-6.0 % Estimated Average Glucose (eAG) 177 H 70-126 mg/dL Phosphorus Level 7.9 H 2.5-4.9 mg/dL Triglycerides Level 119 30-200 mg/dL Cholesterol Level 121 <200 mg/dL LDL Cholesterol 52 0-99 mg/dL HDL Cholesterol 54 29-71 mg/dL Vitamin B12 Level 547 193-986 pg/mL Vitamin D 25-Hydroxy 10.4 30.0-100.0 ng/mL Current Medications Medications (Trade) Dose Ordered Sig/Idania Route PRN Reason Start Time Stop Time Status Last Admin Dose Admin Acetaminophen (TYLenol 325MG TAB) 650 mg Q4H PRN PO TEMPERATURE GREATER THAN 101.5 07/15/24 12:00 08/14/24 11:59 Acetaminophen (TYLenol 325MG TAB) 650 mg Q6H PRN PO MILD PAIN (1-3) 07/15/24 12:00 08/14/24 11:59 Acetaminophen/ Hydrocodone Bitart (NORco 5/325MG) 1 tab Q6H PRN PO MODERATE PAIN (4-6) 07/21/24 15:30 07/26/24 15:29 DC 07/22/24 13:41 1 TAB Albumin Human (Albumin (Human) 25%) 100 ml ONCE IV 07/17/24 11:30 07/18/24 11:29 DC Atorvastatin Calcium (LIPItor 40MG) 40 mg HS PO 07/15/24 21:00 08/14/24 20:59 07/26/24 21:00 40 MG Aztreonam (Azactam) 2 gm Q24H IVPB 07/21/24 09:30 07/21/24 11:00 DC Aztreonam (Azactam) 2 gm Q24H IVPB 07/21/24 11:30 08/04/24 11:29 07/27/24 11:35 2 GM Dextrose (D50w) 50 ml AD PRN IV HYPOGLYCEMIA PROTOCOL 07/15/24 12:00 08/14/24 11:59 Famotidine (Pepcid 20mg Vial) 20 mg Q48H IV 07/15/24 21:00 08/14/24 20:59 07/25/24 21:52 20 MG Glucagon (Glucagon 1mg Kit) 1 mg AD PRN IM HYPOGLYCEMIA PROTOCOL 07/15/24 12:00 08/14/24 11:59 Heparin Sodium (Porcine) (HEParin 5,000 UNIT VIAL) 10,000 unit AD IRRIG 07/17/24 11:30 08/16/24 11:29 07/26/24 12:03 10,000 UNIT Hydromorphone HCl (DiLAUDid 0.5MG INJ) 0.5 mg Q4H PRN IVP SEVERE PAIN (7-10) 07/25/24 22:00 07/30/24 21:59 07/26/24 21:10 0.5 MG Hydromorphone HCl (DiLAUDid 1MG INJ) 1 mg Q4H PRN IVP SEVERE PAIN (7-10) 07/15/24 15:30 07/20/24 15:29 DC 07/19/24 22:52 1 MG Hydromorphone HCl (DiLAUDid 1MG INJ) 1 mg Q4H PRN IVP SEVERE PAIN (7-10) 07/20/24 21:00 07/25/24 20:59 DC 07/25/24 08:57 1 MG Hydromorphone HCl (DiLAUDid 2MG INJ) 2 mg Q4H PRN IVP SEVERE PAIN (7-10) 07/15/24 12:00 07/17/24 10:58 DC 07/16/24 09:17 2 MG Insulin Human Isoph/Insulin Regular (humuLIN 70-30 VIAL) 20 unit ACDINNER SQ 07/24/24 16:30 08/23/24 16:29 Insulin Human Isoph/Insulin Regular (humuLIN 70-30 VIAL) 30 unit DAILYBKFST SQ 07/24/24 08:00 08/23/24 07:59 07/27/24 08:54 30 UNIT Insulin Human Regular (humuLIN R 100 UNIT/ML 3ML) INSULIN SLIDING SCAL... ACHS SQ 07/15/24 16:30 07/23/24 18:14 DC 07/23/24 16:59 7 UNIT Insulin Human Regular (humuLIN R 100 UNIT/ML 3ML) INSULIN SLIDING SCAL... ACHS SQ 07/23/24 21:00 08/22/24 20:59 07/27/24 11:53 4 UNIT Ketorolac Tromethamine (toRADol) 15 mg Q6H PRN IV MODERATE PAIN (4-6) 07/25/24 21:30 07/25/24 21:22 DC Leptospermum Honey (Medihoney) APPLY TO RBKA STUMP DAILY TP 07/17/24 17:00 07/22/24 13:43 DC 07/21/24 09:27 1 APPL Linezolid 300 ml @ 150 mls/hr Q12H IV 07/20/24 14:00 07/20/24 16:25 DC Linezolid 300 ml @ 150 mls/hr Q12H IV 07/20/24 20:00 08/02/24 19:59 07/27/24 08:45 150 MLS/HR Lorazepam (AtiVAN) 0.5 mg ONCE PRN IVP ANXIETY/AGITATION 07/18/24 10:00 07/25/24 09:59 DC Magnesium Sulfate 50 ml @ 0 mls/hr PROTOCOL PRN IV MAGNESIUM PROTOCOL 07/15/24 12:00 08/14/24 11:59 Nifedipine (adALAT 30MG) 60 mg DAILY PO 07/15/24 15:30 08/14/24 15:29 07/27/24 08:47 60 MG Ondansetron HCl (zoFRAN 4MG INJ) 4 mg Q6H PRN IVP NAUSEA/VOMITING 07/15/24 12:00 08/14/24 11:59 07/22/24 13:28 4 MG Pharmacy Profile Note (Pharmacy Communication) 1 each ONCE MISC 07/20/24 13:00 07/20/24 13:16 DC Pharmacy Profile Note (Pharmacy Communication) PLEASE PROVIDE DIALY... Q30MIN MISC 07/15/24 12:30 07/15/24 15:13 DC Potassium Chloride 100 ml @ 100 mls/hr AD PRN IV POTASSIUM PROTOCOL 07/15/24 12:00 08/14/24 11:59 Potassium Chloride (K-Dur 10meq Sr Tab) 10 meq AD PRN PO POTASSIUM PROTOCOL 07/17/24 11:30 08/14/24 11:59 Potassium Chloride (K-Dur/Klor-Con 20meq) 10 meq AD PRN PO POTASSIUM PROTOCOL 07/15/24 12:00 07/17/24 11:01 DC Potassium Chloride (KCl 10% Elixir 20meq/15ml) 10 meq AD PRN PO POTASSIUM PROTOCOL 07/15/24 12:00 08/14/24 11:59 Prednisone (deltaSONE/ oraSONE 5MG) 5 mg BID PO 07/15/24 21:00 08/14/24 20:59 07/27/24 08:46 5 MG Sodium Chloride 250 ml @ 125 mls/hr AD IV 07/15/24 15:30 07/17/24 10:58 DC Sodium Chloride 1,000 ml @ 0 mls/hr ONCE IV 07/17/24 11:30 07/22/24 12:03 DC 07/20/24 18:13 100 MLS/HR Sodium Chloride 1,000 ml @ 0 mls/hr ONCE IV 07/22/24 12:00 08/21/24 11:59 07/26/24 09:32 100 MLS/HR Vancomycin HCl (Vancomycin 750mg) 750 mg MWFPHD IVPB 07/17/24 16:00 4/3/25 16:24 DC 07/17/24 17:05 750 MG Vancomycin HCl (Vancomycin Protocol) 1 each AD IV 07/15/24 10:00 07/20/24 16:24 DC DIAGNOSTICS / RADIOLOGY: [ ] ASSESSMENT: [Suspected infection to the right stump, POA Osteomyelitis of right lower extremity stump POA Cellulitis, POA Right BKA, POA End-stage renal disease, on dialysis POA Hyperglycemia with diabetes mellitus, POA Leukocytosis, POA Chronic anemia, POA ] PLAN: Patient was refusing dialysis initially for that reason I have switched the patient to IV Zyvox. As patient is a home dialysis patient and does not want to go to sniff or rehab after discharge for iv antibiotics. -The patient has been started on aztreonam 2 g Q 24 hour today to cover E coli which grew in the culture. Continue Zyvox for MRSA coverage in the wound. -ID consult was requested but infection is Dr. Vizcaino refused to see this patient because of noncompliance. -We will continue IV antibiotics at Dr. Quigley office during his dialysis Wednesday, Wednesday, and Wednesday. -Patient will be cleared for discharge today. -GI and DVT prophylaxis TERENCE ENCARNACION MD Jul 27, 2024 14:58
[2024-07-27 15:47] VITALS: BP 115/63; PULSE 89; RESP 18; TEMP 98.1
--- NOTE | 2024-07-27 16:42 | DS ---
Discharge Summary Hospital Course Summary: Patient is a 59-year-old male with a past medical history of end-stage renal disease currently on hemodialysis on Wednesday and Wednesday, diabetes mellitus type 2, hypertension, anemia of chronic disease, peripheral artery disease, and dyslipidemia. The patient presented to the emergency room due to increased drainage, pain, and redness coming from his right stump that was previously amputated by Dr. Montes on 05/30/2024. The patient was admitted for an infection with wound dehiscence on his right lower leg below-knee amputation. . Patient has been started on IV antibiotic therapy with vancomycin in the emergency department. Wound cultures grew MRSA and E coli. Antibiotics were adjusted for the culture sensitivities. The patient continued to get hemodialysis on his regular schedule of Wednesday,Wednesday, and Wednesday. The patient was reassessed by the Wound healing team, and recommendations were followed. On July 21, 2024, the patient had a excisional debridement of the right leg below-knee amputation stump wound dehiscence and deep infection, with a application of a negative pressure dressing. The patient went in for another procedure on July 24, for a delayed primary closure of right leg below-knee amputation stump, with a removal of the wound VAC. The patient tolerated the procedures well. The patient had a PICC line placed on July 26 due to his need for IV antibiotics. The patient will be receiving IV antibiotics at Dr. Joe office for a total of 4 weeks. He will be getting a CBC and a CMP 2 times a week for 4 weeks to monitor his response to the antibiotic treatment. This plan has been discussed with Dr. Phipps and the patient. Wrapper Rewinder(s): Nephrology Orthopedic Surgery Oncology Wound care Procedure(s): Excisional debridement of the right leg below-knee amputation stump wound dehiscence and deep infection. Delayed primary closure of right leg below-knee amputation stump. [place] [address] [address] IMAGING REPORT Signed PATIENT: FREDRICK LION MR#: [id number] : 1965 SEX: M AGE: 59 LOCATION: [facility] ORDER 0944 STATUS: REG REPORT#: [id number] SERVICE 0943 REASON: OSTEO ORDERING PHYSICIAN: RICARDO DIAZ MD PROCEDURE: TIBFIB RT - TIBIA/FIBULA 2VWS RT TIBIA/FIBULA 2VWS RT INDICATION: OSTEO TECHNIQUE: TIBIA/FIBULA 2VWS RT. FINDINGS AND IMPRESSION: No displaced fracture or dislocation is seen. Correlate clinically. There is diffuse soft tissue swelling. Below knee amputation changes are seen. There is no obvious erosive changes to suggest osteomyelitis. Dense vascular calcifications are noted. DICTATED BY: CASA VIVEROS MD DATE: 07/15/24 1110 ELECTRONICALLY SIGNED BY: CASA VIVEROS MD DATE: 07/15/24 1113 [place] [address] [address] IMAGING REPORT Signed PATIENT: FREDRICK LION MR#: [id number] : 1965 SEX: M AGE: 59 LOCATION: [facility], [facility] ORDER 0952 STATUS: ADM IN REPORT#: [id number] SERVICE 0949 REASON: r/o osteomyelitis RLE ORDERING PHYSICIAN: DANICA THOMAS MD PROCEDURE: LW EXT WO - MR LOW EXT OTH THAN JNT WO CON MR LOW EXT OTH THAN JNT WO CON HISTORY: Osteomyelitis COMPARISON: None TECHNIQUE: MRI of the right lower extremity was performed utilizing multiple pulse sequences in axial, coronal and sagittal planes. Patient was not given contrast through intravenous route. FINDINGS: Patient is status post below knee amputation. Abnormal increased signal intensity is seen in the proximal tibia and proximal fibula. May be related to osteomyelitis. Adjacent soft tissue swelling is seen suspicious for cellulitis. There appears to be complex fluid with surrounding the distal tibial stump with abscess collection not excluded. No acute displaced fracture or dislocation is seen otherwise. IMPRESSION: 1. Patient is status post below knee amputation. Abnormal increased signal intensity is seen in the proximal tibia and proximal fibula. May be related to osteomyelitis. Adjacent soft tissue swelling is seen suspicious for cellulitis. There appears to be complex fluid with surrounding the distal tibial stump with abscess collection not excluded. DICTATED BY: JOSE SAMUEL MD DATE: 07/19/24 1331 ELECTRONICALLY SIGNED BY: JOSE SAMUEL MD DATE: 07/19/241625 [facility] [address] [id number] IMAGING REPORT Signed PATIENT: FREDRICK LION MR#: [id number] : 1965 SEX: M AGE: 59 LOCATION: [facility]DH ORDER 23 STATUS: ADM IN REPORT#: [id number] SERVICE 21 REASON: PICC LINE PLACEMENT VERIFICATION STAT ORDERING PHYSICIAN: JOSSY SPENCE MD PROCEDURE: CXR1VW - CHEST 1VW CHEST 1VW HISTORY: PICC line placement COMPARISON: 06/02/1999 FINDINGS: A frontal projection of the chest was obtained. No acute pulmonary infiltrates is seen. The heart is borderline enlarged. Right venous catheter is seen with distal tip in the plane of the superior vena cava. All the lines and tubes are again seen in place. No evidence of aortic calcification is seen. IMPRESSION: 1. No acute pulmonary infiltrate is seen. DICTATED BY: JOSE SAMUEL MD DATE: 07/26/24 165 ELECTRONICALLY SIGNED BY: JOSE SAMUEL MD DATE: 07/26/24 1701 RUN DATE: 07/25/24 [facility] PAGE 1 RUN TIME: 5491 [address] [place] [id number] Department of Laboratories CLIA # [id number] Die Maintenance: Jovanni Allen DO Specimen Report -------- ---- PATIENT: FREDRICK LION ACCT: [id number] LOC: 4D U: [id number] AGE/SX: 59/M ROOM: Critical [facility] hospital RE07/15/[address]: SILVER GONZALEZ MD : 1965 BED: 1 DIS: STATUS: ADM IN TLOC: SPEC: [id number] HEIDI: 07/21/24 STATUS: COMP REQ: [id number] RECD: 07/21/[address]: STAR MONTES MD SOURCE: LEG ENTR: 07/21/[address]: ENEDELIA GUAMAN MD SPDESC: RIGHT SILVER GONZALEZ MD,STEPHANIE RAMACHANDRAN,DANIS ROSE,TAYLER BACA MD ORDERED: GS, RAVINDER CULTURE, AEROBIC CULTURE COMMENTS: Comment: RIGHT LEG STUMP Has specimen been collected/obtained? Y Comment: RIGHT LEG STUMP Has specimen been collected/obtained? Y Comment: RIGHT LEG STUMP Has specimen been collected/obtained? Y Comment: RIGHT LEG STUMP Has specimen been collected/obtained? Y Comment: RIGHT LEG STUMP Has specimen been collected/obtained? Y Comment: RIGHT LEG STUMP Has specimen been collected/obtained? Y Comment: RIGHT LEG STUMP Has specimen been collected/obtained? Y Comment: RIGHT LEG STUMP Has specimen been collected/obtained? Y Comment: RIGHT LEG STUMP Has specimen been collected/obtained? Y Comment: RIGHT LEG STUMP Has specimen been collected/obtained? Y Comment: RIGHT LEG STUMP Has specimen been collected/obtained? Y Comment: RIGHT LEG STUMP Has specimen been collected/obtained? Y Comment: RIGHT LEG STUMP Has specimen been collected/obtained? Y Comment: RIGHT LEG STUMP Has specimen been collected/obtained? Y Comment: RIGHT LEG STUMP Has specimen been collected/obtained? Y Critical result called to, and read back performed by: Name/Title: CARLITA CHAIREZ RN on 07/25/24 at 0954. Call made by ANNEL. Procedure Result Natividad Date-Time CONTINUED ON NEXT PAGE RUN DATE: 07/25/24 [facility] PAGE 2 RUN TIME: [address] [address] Department of [employer] CLCARLOS # [id number] Die Maintenance: Jovanni Allen DO Specimen Report SPEC: [id number] PATIENT: FREDRICK LION [id number] (Continued) Procedure Result Natividad Date-Time GRAM STAIN ONLY Final 07/21/24-2045 GRAM STAIN: RARE GRAM POSITIVE COCCI RARE GRAM POSITIVE COCCI IN PAIRS 2+ WBC ANAEROBIC CULTURE Final 07/25/24-622 [facility] COLONY DESCRIPTION: REPORT 1: NO ANAEROBES AT 24-35 HOURS; STUDIES TO CONTINUE REPORT 2: NO ANAEROBES AT 48-59 HOURS; STUDIES TO CONTINUE REPORT 3: NO ANAEROBES AT 72-96 HOURS Test(s) performed by: [facility] [address] [place] [address] AEROBIC CULTURE Final 07/24/24-1050 [facility] METHICILLIN-RESISTANT STAPHYLOCOCCUS AUREUS RESULT WAS CALLED BY TAYLER BARTON ON 07/24/24 AT 1027. CRITICAL VALUES WERE READ BACK AND ACKNOWLEDGED BY KAYEC LUCERO ( [facility] ) COLONY DESCRIPTION: REPORT 1: 1+ GRAM POSITIVE COCCI IN CLUSTERS STAPHYLOCOCCUS AUREUS SENSITIVITY TO FOLLOW REPORT 2: NO FURTHER WORK-UP DONE MRSA: NOTE: THIS IS A METHICILLIN-RESISTANT STAPH AUREUS STAPHYLOCOCCUS AUREUS-MRSA MRSA M.I.C. RX --------- ---- CLINDAMYCIN 0.5 R* ERYTHROMYCIN >4 R GENTAMICIN >8 R VANCOMYCIN 1 S OXACILLIN CHRIS >2 R RIFAMPIN <=1 S TETRACYCLINE >8 R TRIMETHOPRIM/SUFLAMETHOXAZOLE <=0.5/9.5 S [facility] Test Performed at: [facility] [address], [place], [place] Medical Mobile Sales Consultant: Chandler Baig D.O. END OF REPORT RUN DATE: 07/20/24 [facility] PAGE 1 RUN TIME: 8625 [address] [place] [address], [place] [address] Department of Laboratories CLIA # [id number] Die Maintenance: Jovanni Allen DO Specimen Report PATIENT: FREDRICK LION ACCT: [id number] LOC: [facility] U: [id number] AGE/SX: 59/M ROOM: Critical access hospital RE07/15/[address]: SILVER GONZALEZ MD : 1965 BED: 1 DIS: STATUS: ADM IN TLOC: SPEC: [id number] HEIDI: 07/15/24 STATUS: COMP REQ: [id number] RECD: 07/15/[address]: RICARDO DIAZ MD SOURCE: BLOOD ENTR: 07/15/24-1033 [facility] DR: STEPHANIE HAYES MD [facility]: ORDERED: BLOOD CULTURE COMMENTS: What is the Source? BLOOD Procedure Result Natividad Date-Time BLOOD CULT Final 07/20/24-1121 NO GROWTH AFTER 5 DAYS -- RUN DATE: 07/20/24 [facility] PAGE 1 RUN TIME: 64[address] [place] [address], [place] [address] Department of Laboratories CLIA # [id number] Die Maintenance: Jovanni Allen DO Specimen Report PATIENT: FREDRICK LION ACCT: [id number] LOC: [facility] U: [id number] AGE/SX: 59/M ROOM: 424 RE07/15/[address]: SILVER GONZALEZ MD : 1965 BED: 1 DIS: STATUS: ADM IN TLOC: SPEC: [id number] HEIDI: 07/15/24 STATUS: COMP REQ: [id number] RECD: 07/15/24-10[address] [facility] DR: RICARDO DIAZ MD SOURCE: BLOOD ENTR: 07/15/24-1033 [facility] DR: STEPHANIE HAYES MD [facility]: ORDERED: BLOOD CULTURE COMMENTS: What is the Source? BLOOD Procedure Result Natividad Date-Time BLOOD CULT Final 07/20/24-1050 NO GROWTH AFTER 5 DAYS END OF REPORT END OF REPORT RUN DATE: 07/19/24 [facility] PAGE 1 RUN TIME: 101[address] [place] [address], [place] [address] Department [employer] CLIA # [id number] Die Maintenance: Jovanni Allen DO Specimen Report -- PATIENT: FREDRICK LION ACCT: [id number] LOC: [facility] U: [id number] AGE/SX: 59/M ROOM: 424 RE07/15/[address]: SILVER GONAZLEZ MD : 1965 BED: 1 DIS: STATUS: ADM IN TLOC: SPEC: [id number] HEIDI: 07/15/24 STATUS: COMP REQ: [id number] RECD: 07/15/24-[address]: RICARDO DIAZ MD SOURCE: LEG ENTR: 07/15/24 [facility] DR: STEPHANIE HAYES MD SPDESC: OTHER ORDERED: RAVINDER CULTURE, AEROBIC CULTURE Procedure Result Natividad Date-Time -- ANAEROBIC CULTURE Final 07/19/24-1016 [facility] COLONY DESCRIPTION: REPORT 1: NO ANAEROBES AT 16-23 HOURS; STUDIES TO CONTINUE REPORT 2: NO ANAEROBES AT 36-47 HOURS; STUDIES TO CONTINUE REPORT 3: NO ANAEROBES AT 60 TO 71 HOURS Test(s) performed by: [facility] [address] [place] [address] AEROBIC CULTURE Final 07/19/24-1015 [facility] METHICILLIN-RESISTANT STAPHYLOCOCCUS AUREUS RESULT WAS CALLED BY KERMIT DOWLING ON 07/18/24 AT 0647. CRITICAL VALUES WERE READ BACK AND ACKNOWLEDGED BY ZACARIAS MEDINA ([facility]) COLONY DESCRIPTION: REPORT 1: 2+ GRAM POSITIVE COCCI IN CLUSTERS STAPHYLOCOCCUS AUREUS SENSITIVITY TO FOLLOW REPORT 2: 1+ GRAM NEGATIVE RODS IDENTIFICATION AND SENSITIVITY TO FOLLOW REPORT 3: NO FURTHER WORK-UP DONE MRSA: NOTE: THIS IS A METHICILLIN-RESISTANT STAPH AUREUS ESCHERICHIA COLI STAPHYLOCOCCUS AUREUS-MRSA CONTINUED ON NEXT PAGE RUN DATE: 07/19/24 [facility] PAGE 2 RUN TIME: 6712 [address] [place] [address], [place] [address] Department of Laboratories [facility] # [id number] Die Maintenance: Jovanni Allen DO Specimen Report SPEC: [id number] PATIENT: FREDRICK LION [id number] (Continued) -- Procedure Result Natividad Date-Time AEROBIC CULTURE Final (continued) 07/19/24-1016 E [facility] MRSA M.I.C. RX M.I.C. RX --------- ---- --------- ---- AMPICILLIN >16 R AZTREONAM <=4 S CEFAZOLIN <=2 S CEFTAZIDIME/AVIBACTAM <=8 S CIPROFLOXACIN >2 R CLINDAMYCIN 0.5 R* ERYTHROMYCIN >4 R GENTAMICIN >8 R >8 R LEVOFLOXACIN >4 R VANCOMYCIN 1 S OXACILLIN CHRIS >2 R RIFAMPIN <=1 S TETRACYCLINE >8 R TOBRAMYCIN 8 R AMPICILLIN/SULBACTAM 16/8 I MEROPENEM <=1 S PIPERACILLIN/TAZOBACTAM <=8 S TRIMETHOPRIM/SUFLAMETHOXAZOLE >2/38 R <=0.5/9.5 S @ [facility] Test Performed at: [facility] [address], [place], [place] Medical Mobile Sales Consultant: Chandler Baig D.O. END OF REPORT Assessment/Plan: ASSESSMENT: Supsected infection of right lower extremity stump POA Osteomyelitis of right lower extremity stump POA Cellulitis, POA Right BKA, POA End-stage renal disease, on dialysis POA Hyperglycemia with diabetes mellitus, POA Leukocytosis, POA Chronic anemia, POA Discharge Instructions: Follow up appointments: Patient to follow up with PCP within 1 week upon discharge. Patient to follow up at Dr. Sanchez office for IV antibiotic treatment upon discharge for a total of 4 weeks. Procedures: Excisional debridement of the right leg below-knee amputation stump wound dehiscence and deep infection. Delayed primary closure of right leg below- knee amputation stump. Imaging: reports attached to summary Microbiology: reports attached to summary Activity: Ad kofi Home medications: resumed New Mediations to continue at Dr. Joe office: Linezolid, Azetronam. Teaching: We reinforced the importance of compliance with follow up appointment and medication compliance. Emergency instructions: The patient was instructed to present to the nearest Emergency Department or call 911 should their symptoms return or worsen. Home Medications: Active Scripts Nifedipine (Nifedipine ER) 30 Mg Tab.er.24, 60 MG PO Q24H, #60 TAB Prov:PADDY MCLAIN DEVELOPER AUT[employer]IC 06/06/24 Atorvastatin Calcium (LIPITOR) 40 Mg Tablet, 40 MG PO HS, #60 TAB Prov:PADDY MCLAIN DEVELOPER [employer] 06/06/24 Reported Medications Hum Insulin NPH/Reg Insulin Hm (Humulin 70/30 Kwikpen) 100 Unit/Ml (70-30) Insuln.pen, 30 UNITS SQ DAILY 01/14/24 Prednisone (Prednisone) 5 Mg Tablet, 5 MG PO BID, TAB 01/14/24 TERENCE ENCARNACION MD Jul 27, 2024 16:42
--- NOTE | 2024-07-27 17:00 | NUR ---
DC PLAN CM VISITED WITH NURSE MULTIPLE TIMES ASKING FOR IV ABX AND IF HOME HEALTH WAS NEEDED. LAST CONVERSATION WITH NURSE ASKED TO CALL CM ONCE RECEIVED ORDERS OF NEEDS. PATIENT IS TO GO TO DR. REYES OFFICE FOR OUTPATIENT IV ABX. JUST WAITING ON PRIMARY TO SAY WHICH ONE AND HOW LONG. ALSO SINCE PATIENT IS A NEW AMPUTEE DURING HUDDLE ASKED IF THERE WAS ANY WOUND CARE ORDERS AND WHAT WAS BEING DONE. SAID NO ORDERS. ASKED SIMRAN TO FOLLOW UP ON CURRENT PROTOCOL FOR WOUND CARE AND IF WOULD NEED FOR DC HOME. IF SO CM MIGHT NEED TO SET UP OR SEE IF SPOUSE CAN BE TAUGHT WOUND CARE. Addendum: 07/28/24 at 0812 by IAN MONROE RN Amended: Links added.
--- NOTE | 2024-07-27 17:35 | NUR ---
Final DC Plan Received call from primary nurse who was calling to inform CM that IV ABX script is now available and if patient was cleared to dc from CM side. This CM spoke with SARWAT Tamayo to verify dc plan. Plan was to send IV ABX script to Dr. Phipps's office who stated will request auth and CM also pending if HH was needed. Per primary nurse, doctor did not order HH. This CM instructed nurse to fax script to Dr. Phipps's office and have patient follow up in the morning. No other needs verbalized. Addendum: 07/27/24 at 1742 by ION DENT Amended: Links added.
== END 2024-07-27 18:17 | disposition home or self-care (01) | DRG 500 ==
LOC: EDH 09:23 → EDHIP 11:33 → 4DH 14:30
PROVIDERS: ADMIT Internal Medicine; ATTEND Internal Medicine
PROC: 5A1D70Z Performance of Urinary Filtration, Intermittent, Less than 6 Hours Per Day (ICD-10-PCS; 2024-07-17)
PROC: 5A1D70Z Performance of Urinary Filtration, Intermittent, Less than 6 Hours Per Day (ICD-10-PCS; 2024-07-20)
PROC: 2W1NX6Z Compression of Right Upper Leg using Pressure Dressing (ICD-10-PCS; 2024-07-21)
PROC: 0KBS0ZZ Excision of Right Lower Leg Muscle, Open Approach (ICD-10-PCS; principal; 2024-07-21 13:07)
PROC: 5A1D70Z Performance of Urinary Filtration, Intermittent, Less than 6 Hours Per Day (ICD-10-PCS; 2024-07-22)
PROC: 0YQH0ZZ Repair Right Lower Leg, Open Approach (ICD-10-PCS; 2024-07-24 13:07)
PROC: 02HV33Z Insertion of Infusion Device into Superior Vena Cava, Percutaneous Approach (ICD-10-PCS; 2024-07-26)
PROC: B548ZZA Ultrasonography of Superior Vena Cava, Guidance (ICD-10-PCS; 2024-07-26)
PROC: 5A1D70Z Performance of Urinary Filtration, Intermittent, Less than 6 Hours Per Day (ICD-10-PCS; 2024-07-26)
DX: T87.43 Infection of amputation stump, right lower extremity (principal); E43 Unspecified severe protein-calorie malnutrition; N18.6 End stage renal disease; L03.115 Cellulitis of right lower limb; I12.0 Hypertensive chronic kidney disease with stage 5 chronic kidney disease or end stage renal disease; M86.8X6 Other osteomyelitis, lower leg; T87.81 Dehiscence of amputation stump; E11.22 Type 2 diabetes mellitus with diabetic chronic kidney disease; E11.65 Type 2 diabetes mellitus with hyperglycemia; E11.51 Type 2 diabetes mellitus with diabetic peripheral angiopathy without gangrene; E78.00 Pure hypercholesterolemia, unspecified; E66.9 Obesity, unspecified; B95.62 Methicillin resistant Staphylococcus aureus infection as the cause of diseases classified elsewhere; D63.1 Anemia in chronic kidney disease; Y83.5 Amputation of limb(s) as the cause of abnormal reaction of the patient, or of later complication, without mention of misadventure at the time of the procedure; E11.69 Type 2 diabetes mellitus with other specified complication; Z83.3 Family history of diabetes mellitus; Z89.511 Acquired absence of right leg below knee; Z99.2 Dependence on renal dialysis; Z68.26 Body mass index [BMI] 26.0-26.9, adult; Y92.89 Other specified places as the place of occurrence of the external cause
CPT/HCPCS: 36415; 71045; 73590; 73718; 80048; 80053; 80061; 82306; 82550; 82607; 82948; 83036; 83605; 84100; 84484; 85025; 85027; 85610; 85651; 85730; 86140; 86704; 86706; 86803; 87040; 87070; 87076; 87086; 87186; 87205; 87340; 90935; 99291; G0378; J1171; J1644; J1815; J2003; J2020; J2060; J2250; J2371; J2405; J2704; J2795; J3010; J3370; J3490; J7512; A4215; A4216; A4221; A4222; A4223; A4649; A4930; A6210; A6223; A9272

== ENCOUNTER 2024-11-06 10:11 | Inpatient (IN) | payer OTHER ==
[~2024-11-06] VITALS: Ht 180.3 cm; Wt 109.8 kg
[~2024-11-06 10:11] MED LIST changes: -ASPI-1005 PO; -BALS60OI TP; -BENZ-226 PO; -CLOP-31 PO; +FAMO20TA8 PO; -HUM100IN SQ; +HYDR-4068 PO; -INSLAN SQ; -LEVO-70 PO; -LINE600T11 PO; -MONT-46 PO; -NIFE-78 PO; +PRED-409 PO; -PRED5TAB PO
[2024-11-06 10:39] LABS: IMMATURE GRANULOCYTE ABSOLUTE 0.13 K/uL (0-1); NUCLEATED RED BLOOD CELLS 0.0 % (0.0-0.19); PLATELET COUNT (AUTO) 213 K/uL (130-400); RED BLOOD CELL COUNT(AUTO) 2.94 MIL/uL (4.50-6.20); RED CELL DISTRIBUTION WIDTH 15.6 % (11.0-15.5); WHITE BLOOD COUNT (AUTO) 21.9 K/uL (4.8-10.8)
--- NOTE | 2024-11-06 10:43 | ERN ---
General Chief Complaint: FOOT INJURY/PAIN Stated Complaint: LT FOOT PAIN Time Seen by MD: 10:15 Time Seen by Midlevel: 10:15 Source: patient History of Present Illness Initial Comments 59-year-old male who presents to the emergency department by EMS for left foot evaluation. Patient was referred from Dr. Jackson's office. Patient states he had a fall one month ago and had an injury to the foot. Since then the foot has not been healing the patient noticed blackening to the foot. PMHx ESRD on dialysis 3x per week (Wednesday, , Wednesday), HTN, DM, hypercholesterolemia. Allergies: Coded Allergies: Penicillins (Unverified Allergy, Unknown, 01/14/24) Sulfa (Sulfonamide Antibiotics) (Unverified Allergy, Unknown, 01/14/24) Home Meds Active Scripts Famotidine (Famotidine) 20 Mg Tablet, 20 MG PO Q48H, #60 TAB Prov:PADDY MCLAIN SEMICONDUCTOR EQUIPMENT TECHNICIAN 08/16/24 Nifedipine (Nifedipine ER) 30 Mg Tab.er.24, 60 MG PO Q24H, #60 TAB Prov:PADDY MCLAIN SEMICONDUCTOR EQUIPMENT TECHNICIAN 06/06/24 Atorvastatin Calcium (LIPITOR) 40 Mg Tablet, 40 MG PO HS, #60 TAB Prov:PADDY MCLAIN SEMICONDUCTOR EQUIPMENT TECHNICIAN 06/06/24 Reported Medications Prednisone (Deltasone / Orasone) 5 Mg Tablet, 1 TAB PO BID 10/09/24 Hydrocodone/Acetaminophen (Hydrocodon-Acetaminophn 10-325) 10 Mg-325 Mg Tablet, 1 TAB PO QIDP PRN for pain for 5 Days, #20 TAB 0 Refills 08/11/24 Past Medical History Past Medical History: Diabetes-Type II, High Cholesterol, Hypertension, Renal Failure, Other Medical History Other: ESRD ON DIALYSIS Past Surgical History: Cholecystectomy Surgical History Other: R WRIST, NECK PLATES, PERMACATH, RBKA Family History Family History: Negative ROS Dictation Constitutional: Negative for fever,chills, and weight loss Eyes: Negative for injury, pain,redness, and discharge ENT: Negative for injury,pain or swelling Cardiovascular: Negative for chest pain, palpitations, and edema Respiratory: Negative for shortness of breath, cough, and wheezing, Abdomen/GI: Negative for abdominal pain, nausea, vomiting, diarrhea, and constipation Back: Negative for injury and pain : Negative for painful urination, bleeding or discharge MS/Extremity: Positive for left foot pain Negative for injury and deformity Skin: Positive for black skin appearance of the left toes, open wounds of the left foot. Negative for rash, and discoloration Neuro: Negative for headache, weakness, numbness, tingling, and seizure Psych: Negative for suicide ideation, homicidal ideation, and hallucinations Physical Exam Physical Exam Dictation General: awake, alert, no acute distress Head/Face: Normocephalic, atraumatic Eyes: PERRL, EOMI, normal conjunctiva ENT: oral cavity clear, oral mucosa moist Neck: Supple, normal range of motion Cardiovascular: RRR, normal S1/S2 Respiratory: CTAB, no respiratory distress Skin: Warm, dry, normal turgor, no rash. Gangrene to the left toes, skin avulsion to the heel and plantar aspect MS/Extremity: Pulses equal, no cyanosis, neurovascular intact, FROM. Swelling of the left foot, decreased sensation distally tenderness proximally of the left foot. BKA of the right lower extremity Neuro: COAx4, GCS 15, strength 5/5, CN 2-12 intact, normal cerebellar exam Psych: Normal behavior, mood, and affect normal Results Laboratory and Microbiology Lab and Micro Result Laboratory Tests Test 11/06/24 10:33 White Blood Count 21.9 K/uL (4.8-10.8) H Red Blood Count 2.94 MIL/uL (4.50-6.20) L Hemoglobin 9.0 g/dL (14.0-18.0) L Hematocrit 27.7 % (42-54) L Mean Corpuscular Volume 94.2 fL (79-99) Mean Corpuscular Hemoglobin 30.6 pg (27.0-33.0) Mean Corpuscular Hemoglobin Concent 32.5 g/dL (32.0-36.0) Red Cell Distribution Width 15.6 % (11.0-15.5) H Platelet Count 213 K/uL (130-400) Mean Platelet Volume 11.3 fL (7.5-10.5) H Immature Granulocyte % (Auto) 0.6 % (0-1) Neutrophils (%) (Auto) 85.6 % (40.0-77.0) H Lymphocytes (%) (Auto) 7.3 % (21.0-51.0) L Monocytes (%) (Auto) 6.4 % (3.0-13.0) Eosinophils (%) (Auto) 0.0 % (0.0-8.0) Basophils (%) (Auto) 0.1 % (0.0-5.0) Neutrophils # (Auto) 18.7 K/uL (1.8-7.7) H Lymphocytes # (Auto) 1.6 K/uL (1.0-4.8) Monocytes # (Auto) 1.4 K/uL (0.1-1.0) H Eosinophils # (Auto) 0.01 K/uL (0.00-0.70) Basophils # (Auto) 0.02 K/uL (0.00-0.20) Absolute Immature Granulocyte (auto 0.13 K/uL (0-1) Nucleated Red Blood Cells 0.0 % (0.0-0.19) White Cell Morphology Comment See comments Erythrocyte Sedimentation Rate 50 MM/HR (0-20) H Sodium Level 137 mmol/L (136-145) Potassium Level 4.8 mmol/L (3.5-5.1) Chloride Level 100 mmol/L (101-111) L Carbon Dioxide Level 25 mmol/L (21-32) Blood Urea Nitrogen 87 mg/dL (7-18) *H Creatinine 7.0 mg/dL (0.5-1.3) H Glomerular Filtration Rate Calc 8 mL/min (>90) Random Glucose 279 mg/dL (70-105) H Total Calcium 7.6 mg/dL (8.5-10.1) L Labs Reviewed?: Yes EKG/XRAY/US/CT/MRI X-RAY Comment REASON: R/O osteomyelitis ORDERING PHYSICIAN: SASHA DIMAS PROCEDURE: FT 3VW LT - FOOT COMP 3+VWS LT EXAM: CR Left foot, 3 View. CLINICAL HISTORY: R/O osteomyelitis COMPARISON: None provided. FINDINGS: Severe soft tissue swelling throughout the visualized left lower extremity. There is marked osteopenia, which limits evaluation of the osseous detail. Questant a minimally displaced age-indeterminate fracture of the base of the third proximal phalanx. If clinically warranted CT imaging may be obtained. There is no other displaced fracture, osteolysis, or evidence of periostitis to suggest osteomyelitis. If clinical concern persist recommend MRI imaging for further evaluation. Joint spaces remain anatomically aligned. Atherosclerosis of the small vessels of the foot. IMPRESSION: 1. Severe soft tissue swelling of the left foot. 2. Possible minimally displaced fracture of the third proximal phalanx base. 3. No definitive evidence of osteomyelitis. /[place] DICTATED BY: VARGHESE FISHER Jr., MD DATE: 11/06/24 1416 MDM MDM: Differential diagnosis: Osteomyelitis, skin infection, gangrene Rationale: 59-year-old male who presents to the emergency department by EMS for left foot evaluation. Patient was referred from Dr. Jackson's office. Patient states he had a fall one month ago and had an injury to the foot. Since then the foot has not been healing the patient noticed blackening to the foot. PMHx ESRD on dialysis 3x per week (Wednesday, , Wednesday), HTN, DM, hypercho lesterolemia. Labs obtained indicate leukocytosis WBCs of 21.9, anemia with hemoglobin of 9.0, BUN 87 and creatinine 7.0 consistent with end-stage renal disease. X-ray obtained of the left foot with no indications of osteomyelitis. Patient was administered vancomycin and levofloxacin in the ED. Patient family were educated on findings, diagnosis, decision for admission. Patient verbalized understanding and agrees with admission. There are no social concerns with this patient. I independently interpreted the test that were performed, results were reviewed by me and considered findings on radiology if ordered. Medical management and examination interpretation discussions were had by me with other qualified healthcare professionals as indicated for the patient's care. ED Course Orders Procedure Category Date Status Time Cbc With Differential LAB 11/06/24 Complete 10:22 Basic Metabolic Panel LAB 11/06/24 Complete 10:22 Erythrocyte LAB 11/06/24 Complete Sedimentation Rate 10:22 Foot Comp 3+Vws Lt RAD 11/06/24 Resulted 10:26 General Surgery CONPHYSVC 11/06/24 Transmitted Consult 11:22 Vancomycin 1g/250ml PHA 11/06/24 Complete Kit (Vancomycin 1g/2 12:00 Levofloxacin 750mg PHA 11/06/24 Complete Tab (Levaquin 750mg T 12:00 Anaerobic Culture CHRIS 11/06/24 Logged 11:44 Aerobic Culture CHRIS 11/06/24 Logged 11:44 Morphine 4mg Syg PHA 11/06/24 Complete (Morphine 4mg Syg) 12:00 Current Medications Medications (Trade) Dose Ordered Sig/Idania Route PRN Reason Start Time Stop Time Status Last Admin Dose Admin Levofloxacin (LEvaquIN 750MG TAB) 750 mg ONCE ONCE PO 11/06/24 12:00 11/06/24 12:01 DC Morphine Sulfate (morPHINE 4MG SYG) 4 mg ONCE ONCE IVP 11/06/24 12:00 11/06/24 12:01 DC 11/06/24 13:48 Vancomycin HCl (Vancomycin 1g/ 250ml Kit) 1 gm ONCE ONCE IV 11/06/24 12:00 11/06/24 12:01 DC Vital Signs Date Time Temp Pulse Resp B/P (MAP) Pulse Ox O2 Delivery O2 Flow Rate FiO2 11/06/24 11:27 98.8 93 18 144/67 Room Air* 0 21 11/06/24 10:13 98.8 92 20 161/94 97 Room Air Critical Care Note Critical Time: 30 minutes Comments Total critical care time was 33 minutes. Excluding time for procedures. Management of critically ill patient with concern for acute decompensation. Management included interpretation of laboratory values and imaging, hemodynamics, time for consultation with consultants and admitting physician. DX & DISP Disposition: Inpatient Decision to Admit Date: Nov 06, 2024 Departure Impression: Primary Impression: Gangrene of toe of left foot Additional Impressions: Leucocytosis, Elevated sed rate Condition: Stable Referrals: STEPHANIE HAYES MD (PCP) I performed the substantive portion of the visit. I have reviewed and personally made and approve the management plan that is documented in the notes by myself or the HERBIE. I acknowledge full responsibility for the patient's management plan. SASHA DMIAS Nov 06, 2024 10:43
[2024-11-06 10:51] LABS: CREATININE 7.0 mg/dL (0.5-1.3); GLOMERULAR FILTR. RATE CALC 8.0 mL/min (>90); GLUCOSE,RANDOM 279.0 mg/dL (70-105); SODIUM SERUM 137.0 mmol/L (136-145)
[2024-11-06 11:13] LABS: UREA NITROGEN, BLOOD 87.0 mg/dL (7-18)
[2024-11-06 11:44] LABS: ERYTHROCYTE SEDIMENTATION RATE 50 MM/HR (0-20)
--- NOTE | 2024-11-06 13:17 | HMCIMG ---
EXAM: CR Left foot, 3 View. CLINICAL HISTORY: R/O osteomyelitis COMPARISON: None provided. FINDINGS: Severe soft tissue swelling throughout the visualized left lower extremity. There is marked osteopenia, which limits evaluation of the osseous detail. Questant a minimally displaced age-indeterminate fracture of the base of the third proximal phalanx. If clinically warranted CT imaging may be obtained. There is no other displaced fracture, osteolysis, or evidence of periostitis to suggest osteomyelitis. If clinical concern persist recommend MRI imaging for further evaluation. Joint spaces remain anatomically aligned. Atherosclerosis of the small vessels of the foot. IMPRESSION: 1. Severe soft tissue swelling of the left foot. 2. Possible minimally displaced fracture of the third proximal phalanx base. 3. No definitive evidence of osteomyelitis. /[place]
[2024-11-06] MEDS ORDERED: VANCOMYCIN PROTOCOL PER PHARMACY IV SCH (13:30)
[2024-11-06] MEDS ORDERED: HYDROcodone/APAP 5/325 1 TAB TABLET PO PRN (13:30)
[2024-11-06] MEDS: VANCOMYCIN KIT 1 GM/250 ML IV.KIT IV ONE ×2 (13:48→13:49)
--- NOTE | 2024-11-06 14:16 | HP ---
[facility] HISTORY AND PHYSICAL Date of Service: Nov 06, 2024 Time of Service: 12:00 HISTORY OF PRESENT ILLNESS: Patient is a 59 year old male with a past medical history of ESRD on dialysis 3x per week (T, , S), DM II, hypercholesterolemia, hypertension, and psoriasis, and chronic prednisolone use who presents to the ED for left foot evaluation. Patient has a history of right [id number] amputation and recent surgical debridement of the stump due to infection with MRSA and multi-drug resistant E. coli. The patient is wheelchair bound and was not able to complete physical therapy or obtain a prosthetic after surgery. Since then he had a fall and injured his left foot for which he was admitted in September. At the time surgical consultation led to the decision to amputate the necrotic left 2nd toe. Cardiology evaluated his circulation status, and a peripheral arteriography was performed, revealing poor vascular runoff, which precluded interventional treatment. The patient received Betadine dressings and IV antibiotics, and was provided with a CAM walking boot and heel protectors to aid mobility. Despite these measures, patient noticed the left foot worsening with blackening and swelling. The patient was then referred from Dr. Jackson's office for further evaluation. On admission, patient meets criteria for sepsis with WBC elevation of 21.9 and elevated ESR of 50. BUN of 87 with baseline in 30-40's. Cr of 7.0. Hemoglobin of 9.0. Glucose elevated at 279. Patient started on Vancomycin and Levofloxacin due to penicillin and sulfa allergy. Patient started on insulin sliding scale and long acting insulin. Due to ESRD no fluids were initiated at this time. X-ray of left foot demonstrates severe soft tissue swelling with possible minimally displaced fracture of the proximal phalanx base. No definite evidence of osteomyelitis. MRI without contrast has been ordered for further evaluation. General surgery has been consulted for further recommendations. Patient will be admitted under hospitalist care for further evalu ation/recommendation. ID we will be consulted for antibiotic management. Senior Games Technician will be consulted for management of ESRD dialysis. General surgery will be consulted for left foot toe necrosis. REVIEW OF SYSTEMS CONSTITUTIONAL: Denies fevers, chills, or night sweats. No unintentional weight loss reported. NEUROLOGICAL: Denies headache, amaurosis fugax, motor weakness, sensory deficit, vertigo/spinning sensation, gait abnormalities, or tremors. ENT: No hearing loss, otalgia, otorrhea, rhinitis, rhinorrhea, hoarseness, or sore throat. CARDIOVASCULAR: Denies any exertional angina, dyspnea on exertion, orthopnea, paroxysmal nocturnal dyspnea, palpitations, life-threatening arrhythmias, claudication. PULMONARY: Denies any shortness of breath, cough, phlegm/sputum, hemoptysis, pleuritic chest pain. SLEEP: Denies morning headaches, daytime somnolence or napping. Denies difficulty falling asleep, staying asleep, waking from sleep. Denies knowledge of snoring. GASTROINTESTINAL: Denies any type of dysphagia to either liquids or solids. Denies nausea, vomiting, pyrosis, early satiety, abdominal pain, diarrhea, constipation, or changes in stool consistency or caliber. Denies coffee-ground emesis, hematemesis, hematochezia, or melanotic stools. GENITOURINARY: Denies frequency, urgency, nocturia, hematuria or incontinence (Storage/Irritative symptoms.) Low urinary stream, straining to void, urinary intermittency or hesitancy, splitting of the voiding stream, terminal dribbling. ENDOCRINOLOGIC: Denies polyuria, polydipsia, polyphagia or heat/cold intolerances. HEMATOLOGIC: Denies thrombophilia/previous clots, or coagulopathy/bleeding disorders. ONCOLOGIC: Denies personal history of malignancy. DERMATOLOGIC: Denies rashes or pruritus. PSYCHIATRIC: Denies any suicidal or homicidal ideation. Denies hallucinations. PAST MEDICAL HISTORY: ESRD dialysis, hypertension, hyperlipidemia, diabetes, peripheral artery disease, psoriasis, chronic prednisolone use, right osteomyelitis, recent MRSA/MDRO E coli right foot PAST SURGICAL HISTORY: AV graft, cholecystectomy, neck and wrist surgery, right BKA 05/30/2024, history of recent debridement of right BKA site with wound placement on 07/21/2024 with delayed primary closure on 07/24/2024 and wound VAC removal by Dr. Kincaid, right BKA PAST SOCIAL HISTORY: Patient denies tobacco, alcohol or drug illicit FAMILY HISTORY: Patient lives at home with the family members in [place] . Patient uses wheelchair for ambulation s/p right BKA] Coded Allergies: Penicillins (Unverified Allergy, Unknown, 01/14/24) Sulfa (Sulfonamide Antibiotics) (Unverified Allergy, Unknown, 01/14/24) PHYSICAL EXAM GENERAL APPEARANCE: The patient is awake, alert, and oriented, in no acute cardiopulmonary distress. NEUROLOGICAL: Cranial nerves II-XII grossly intact. Motor is 5/5 in bilateral upper and lower extremities proximal to distal. No sensory deficits. HEENT: Face is symmetric. Pupils are equal and reactive. Extraocular movements are intact. NECK: Supple. No JVD. No thyromegaly. No submental, submandibular, pre- /postauricular, occipital or supraclavicular lymphadenopathy. CHEST: Normal chest expansion. No Telemetry. LUNGS: Absence of any rales, rhonchi or any wheezing. CARDIOVASCULAR: Regular. S1 and S2 normal. No appreciable rubs, murmurs or gallops. ABDOMEN: Soft, nontender, and nondistended. There is no rebound, voluntary guarding, or rigidity. : Deferred. No [place]. EXTREMITIES: Gangrene to left foot, skin avulsion to the heel and plantar aspect. Swelling of left foot with tenderness proximally and decreased sensation distally. Pulses equal, no cyanosis. BKA of RLE SKIN: No skin breakdown. Vital Sign (Last 24 Hours) 11/06/24 11/06/24 10:13 11:27 Temp 98.8 Pulse 93 Resp 18 B/P (MAP) 144/67 Pulse Ox 97 O2 Delivery Room Air* O2 Flow Rate 0 FiO2 21 LABS: Laboratory: Test 11/06/24 10:33 Range/Units White Blood Count 21.9 H 4.8-10.8 K/uL Red Blood Count 2.94 L 4.50-6.20 MIL/uL Hemoglobin 9.0 L 14.0-18.0 g/dL Hematocrit 27.7 L 42-54 % Mean Corpuscular Volume 94.2 79-99 fL Mean Corpuscular Hemoglobin 30.6 27.0-33.0 pg Mean Corpuscular Hemoglobin Concent 32.5 32.0-36.0 g/dL Red Cell Distribution Width 15.6 H 11.0-15.5 % Platelet Count 213 130-400 K/uL Mean Platelet Volume 11.3 H 7.5-10.5 fL Immature Granulocyte % (Auto) 0.6 0-1 % Neutrophils (%) (Auto) 85.6 H 40.0-77.0 % Lymphocytes (%) (Auto) 7.3 L 21.0-51.0 % Monocytes (%) (Auto) 6.4 3.0-13.0 % Eosinophils (%) (Auto) 0.0 0.0-8.0 % Basophils (%) (Auto) 0.1 0.0-5.0 % Neutrophils # (Auto) 18.7 H 1.8-7.7 K/uL Lymphocytes # (Auto) 1.6 1.0-4.8 K/uL Monocytes # (Auto) 1.4 H 0.1-1.0 K/uL Eosinophils # (Auto) 0.01 0.00-0.70 K/uL Basophils # (Auto) 0.02 0.00-0.20 K/uL Absolute Immature Granulocyte (auto 0.13 0-1 K/uL Nucleated Red Blood Cells 0.0 0.0-0.19 % White Cell Morphology Comment See comments Erythrocyte Sedimentation Rate 50 H 0-20 MM/HR Sodium Level 137 136-145 mmol/L Potassium Level 4.8 3.5-5.1 mmol/L Chloride Level 100 L 101-111 mmol/L Carbon Dioxide Level 25 21-32 mmol/L Blood Urea Nitrogen 87 *H 7-18 mg/dL Creatinine 7.0 H 0.5-1.3 mg/dL Glomerular Filtration Rate Calc 8 >90 mL/min Random Glucose 279 H 70-105 mg/dL Total Calcium 7.6 L 8.5-10.1 mg/dL Current Medications Medications (Trade) Dose Ordered Sig/Idania Route PRN Reason Start Time Stop Time Status Last Admin Dose Admin Acetaminophen/ Hydrocodone Bitart (NORco 5/325MG) 1 tab Q4H PRN PO MODERATE PAIN (4-6) 11/06/24 13:30 11/11/24 13:29 Acetaminophen/ Hydrocodone Bitart (NORco 5/325MG) 2 tab Q4H PRN PO SEVERE PAIN (7-10) 11/06/24 13:30 11/11/24 13:29 Atorvastatin Calcium (LIPItor 40MG) 40 mg HS PO 11/06/24 21:00 12/06/24 20:59 Enoxaparin Sodium (Lovenox) 30 mg DAILY SQ 11/07/24 09:00 12/07/24 08:59 Famotidine (Pepcid 20mg Tab) 20 mg QTUTHSA@2100 PO 11/06/24 21:00 12/06/24 20:59 Insulin Glargine (LANtus 100 UNITS/ML 10 ML VIAL) 10 units HS SQ 11/06/24 21:00 12/06/24 20:59 Insulin Human Regular (humuLIN R 100 UNIT/ML 3ML) INSULIN SLIDING SCAL... ACHS SQ 11/06/24 16:30 12/06/24 16:29 Levofloxacin/ Dextrose (LEvaquIN 500 MG/ D5W 100 ML) 500 mg Q48H IV 11/06/24 16:00 11/27/24 15:59 Nifedipine (adALAT 30MG) 60 mg Q24H PO 11/06/24 14:30 12/06/24 14:29 Vancomycin HCl 250 ml @ 166.667 mls/hr QTUSA IV 11/07/24 09:00 11/06/24 13:22 DC Vancomycin HCl 250 ml @ 166.667 mls/hr QTUTHSA[DIALYSIS] IV 11/07/24 16:00 11/28/24 15:59 Vancomycin HCl (Vancomycin Protocol) 1 each AD IV 11/06/24 13:30 11/20/24 13:29 DIAGNOSTICS / RADIOLOGY: PATIENT: FREDRICK LION MR#: [id number] : 1965 SEX: M AGE: 59 LOCATION: [facility] ORDER 1027 STATUS: ADM IN REPORT#: [id number] SERVICE 1026 REASON: R/O osteomyelitis ORDERING PHYSICIAN: SASHA DIMAS PROCEDURE: FT 3VW LT - FOOT COMP 3+VWS LT EXAM: CR Left foot, 3 View. CLINICAL HISTORY: R/O osteomyelitis COMPARISON: None provided. FINDINGS: Severe soft tissue swelling throughout the visualized left lower extremity. There is marked osteopenia, which limits evaluation of the osseous detail. Questant a minimally displaced age-indeterminate fracture of the base of the third proximal phalanx. If clinically warranted CT imaging may be obtained. There is no other displaced fracture, osteolysis, or evidence of periostitis to suggest osteomyelitis. If clinical concern persist recommend MRI imaging for further evaluation. Joint spaces remain anatomically aligned. Atherosclerosis of the small vessels of the foot. IMPRESSION: 1. Severe soft tissue swelling of the left foot. 2. Possible minimally displaced fracture of the third proximal phalanx base. 3. No definitive evidence of osteomyelitis. /[place] DICTATED BY: VARGHESE FISHER Jr., MD DATE: 11/06/241415 ELECTRONICALLY SIGNED BY: VARGHESE FISHER Jr., MD DATE: 11/06/241415 ASSESSMENT: Acute Sepsis POA Leukocytosis WBC 21.9 POA Left foot gangrene Possible osteomyelitis of left foot ESRD on dialysis T, Th, S POA Uncontrolled DM II Chronic anemia with anemia of renal disease POA History of chronic corticosteroid use as outpatient with the prednisolone POA Psoriatic POA Uncontrolled hypertension POA PAD POA Recent history of hospitalization [facility] for infected right BKA stump with osteomyelitis on IV antibiotics outpatient Recent Cultures wound positive for MRSA and MDRO E coli Recent history of right BKA site debridement 07/21/2024 followed by delayed primary closure on 07/24/[address] Montes PLAN: Admit to: Medical-surgical with tele Consults: ID, nephro, general surgery Antibiotics: Vancomycin, Levofloxacin Tests: Left foot x-ray, left foot MRI NEURO: Minimize central acting medications as possible. Fall Precautions. Well lighted room through the day and minimize interruptions through the night to prevent acute delirium. PULMONARY: Chest x-ray negative cardiomegaly Supplemental 02 as needed BiPAP as necessary, for respiratory distress Titrate Fio2 to keep Spo2 > or = 90% DuoNebs and CPT as needed IS hourly while awake for pulmonary hygiene Out of bed to chair as tolerated VAP Bundle Maintain aspiration precautions at all times CARDIOVASCULAR: Follow hemodynamics. Vital signs per facility protocol GI & NUTRITION: Continue nutritional support Aspirations precautions Prokinetic agents and laxatives as needed KIDNEYS & ELECTROLYTES: Strict monitoring of intake and output Daily weights Avoid nephrotoxic agents Monitor electrolytes and replace as needed Goal urine output of 30mL/hr or 0.5mL/kg/hr Medications to be dosed according to renal function. Avoid contrast if possible ENDOCRINE: Maintain blood glucose between 100-180 at all times. Insulin sliding scale for blood glucose management Hypoglycemia and hyperglycemia protocol in place INFECTIOUS DISEASE: Trend temperature, WBC and procalcitonin level Follow cultures, deescalate antibiotics as soon as possible. Panculture if new onset fever HEMATOLOGY & COAGULATION: Monitor H&H. Keep Hgb > 7 Transfuse 1 unit of PRBC for Hgb < 7 Transfuse 1 pack of platelets of platelets < 20, 000 Watch for any signs and symptoms of bleeding SKIN: Left foot MRI pending Pressure ulcer prevention per facility protocol Specialty mattress as needed Treatment plan discussed with patient and family at the bedside Medications to be reconciled once obtained by patient and/or family and available to be reconciled in computer p.r.n. medication for pain nausea and vomiting Questions were answered We will continue to monitor the patient closely Foot Worker for disposition Rehab: PT/OT GI: PPI Code Status: Full Resuscitation Disposition: TBD Prognosis: Guarded ADVANCED CARE PLANNING 1. Which of the following were discussed? Hospice Care - Yes / No Therapeutic options - Yes / No Advance Directives - Yes / No Other discussions - 2. Discussed with who? Patient 3. Voluntary nature of this service was explained to the patient? Yes / No 4. Amount of time spent - __ more than 35 minute 5. Reviewed by Physician? (if this service was performed by NPP) Yes / No ATTESTATION BY PHYSICIAN I have seen and examined the patient. I reviewed the documentation, medical decision making, and treatment plan as noted by the resident provider above. I agree with the findings and plan of care. Elan Riley MD, NEHA MD Nov 06, 2024 14:16
[2024-11-06] MEDS ORDERED: GLUCAGON 1MG KIT 1 MG ML IM PRN (14:30)
--- NOTE | 2024-11-06 15:03 | NUR ---
DCP: HOME Pt currently lives with radha Mcfarland [phone]. Pt does use a wheelchair at home to ambulate. Pt does not have home health or provider services. Pt was supposed to start physical therapy with [facility] however ended up coming to ER. PCP is Dr. oJnes ad uses [facility] for any RX needs. At [place] pt will want to go home and family can assist with transportation. Addendum: 11/06/24 at 1506 by RYLAN MEDINA SS Amended: Links added.
--- NOTE | 2024-11-06 16:21 | CONS ---
CONSULT NOTE: Consulting physician: General surgeryDr Riley Consulting service: Reason for consultation: Left lower extremity gangrene History of present illness: This is a 59-year-old male with a medical history listed below consulted to surgery for evaluation of left lower extremity gangrene. Patient reports BKA earlier this year to right lower extremity where he required long-term antibiotics upon discharge. Patient however reports relatively recent fall at physical therapy and since for he has noted significant blackening and gangrene to left foot. On physical exam foot to touch. Currently pending imaging to lower extremity. Patient sees Dr. Jackson requesting to see him here in hospital. Patient's pain controlled. Patient is hoping to avoid amputation if possible. 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 Kincaid, right BKA PAST SOCIAL HISTORY: Patient denies tobacco, alcohol or drug illicit FAMILY HISTORY: Patient lives at home with the family members in [place] . Patient uses wheelchair for ambulation s/p right BKA] Review of systems: General: No Fever, No Chills, No Night Sweats, No Fatigue, No Malaise, No Appetite, No Other HEENT: No Head Aches, No Visual Changes, No Eye Pain, No Ear Pain, No Dysphasia, No Sinus Congestion, No Post Nasal Drip, No Sore Throat, No Other Pulmonary: No Dyspnea, No Cough, No Pleuritic Chest Pain, No Other Cardiovascular: No: Chest Pain, Palpitations, Orthopnea, Paroxysmal No Dyspnea, Edema, Lt Headedness, Other Gastrointestinal: No: Nausea, Vomiting, Diarrhea, Constipation, Melena, Hematochezia, Other Genitourinary: No Dysuria, No Frequency, No Incontinence, No Hematuria, No Retention, No Other Musculoskeletal: No: other, neck pain, shoulder pain, arm pain, back pain, hand pain, leg pain, foot pain Skin: No Urticaria, No Rash, No Other Neurological: No: Weakness, Numbness, Incoordination, Change in speech, Confusion, Seizures, Other Physical exam: General: Awake alert and oriented Heart: Regular rate and rhythm} Lungs: Clear to auscultation no distress Abdomen: [Soft, nontender, nondistended Left lower extremity with gangrene to digits cool to touch lower extremity Assessment: This is a 59-year-old male dry gangrene to left lower extremity Plan: From surgical standpoint the only potential intervention we can offer would be a left BKA which patient at this time is not interested in if the lower extremity can be salvaged We will order imaging to assess vascular and atrial flow to lower extremity Await for Podiatry to evaluate patient Patient could also benefit from vascular intervention if patient candidate Dr. Jordan has been updated in patient's status and surgical team will follow patient closely. Nursing report any further acute events SILVERIO BOWEN Jr. Nov 06, 2024 16:21
--- NOTE | 2024-11-06 16:39 | NUR ---
1630 REPORT GIVEN TO JAS FLORES. PT STABLE NO DISTRESS VITALS WNL NO C/O PAIN NOW, PT STATES HE HAS PICC LINE TO [facility]UEL LAST FLUSED 3 WEEKS AGO HERE, STATED CANNOT BE USED, DRESSING VISIBLY SOILED. INFORMED NURSE TO REQUEST PICC TO BE REMOVED. PT ASKED NOT TO BE POKED AGAIN FOR ANOTHER IV, INFOMED HIM A SECOND IV WOULD BE NEED, PT ASKED IF ABX CAN BE GIVEN AFTER VANCOMYCIN INSTEAD STARTING ANOTHER IV, STATE IV ARE HARD TO GET ON HIM.
[2024-11-06 17:00] VITALS: BP 145/71; PULSE 76; RESP 18; TEMP 98.5; O2SAT 93
[2024-11-06 19:00] VITALS: BP 143/83; PULSE 97; RESP 20; TEMP 97.9
--- NOTE | 2024-11-06 20:52 | NUR ---
provider notification spoke with dr larose to make aware of consult. dr larose aware and verbalized understanding.
--- NOTE | 2024-11-06 20:55 | NUR ---
provider notification dr white made aware of consult.
[2024-11-06] MEDS: FAMOTIDINE 20MG TAB PO SCH (21:10)
[2024-11-06] MEDS: HYDROcodone/APAP 5/325 1 TAB TABLET PO PRN (22:09)
[2024-11-07] VITALS (14 sets, daily range): BP systolic 115–160; BP diastolic 57–88; PULSE 55–108; RESP 20–21; TEMP 98–98.5; O2SAT 93–95
--- NOTE | 2024-11-07 00:42 | HMCIMG ---
EXAMINATION: SPECTRAL DOPPLER ULTRASOUND EXAMINATION OF THE LEFT LOWER EXTREMITY VEINS. CLINICAL HISTORY: To assess venous flow. COMPARISON: None provided. TECHNIQUE: Real-time ultrasound scan of the veins of the left lower extremity with color Doppler flow, spectral waveform analysis and compression. FINDINGS: DEEP VEINS: The common femoral, superficial femoral (proximal and distal), and popliteal veins are echolucent and compressible. There is normal color Doppler flow throughout. The visualized calf veins appear patent. There are echogenic strands in the mid superficial femoral vein, however flow is present and the vein is partially compressible. SUPERFICIAL VEINS: The greater saphenous veins are patent and compressible. SOFT TISSUES: No popliteal fossa cyst or other abnormalities. IMPRESSION: Linear echogenic strands in the left mid superficial femoral vein, reflecting chronic thrombosis with recanalization. No deep venous thrombosis evident in the remainder of the left lower extremity. No superficial thrombophlebitis in the left lower extremity. /Dickinson
--- NOTE | 2024-11-07 00:42 | HMCIMG ---
EXAMINATION: DUPLEX ULTRASOUND EXAMINATION OF THE LEFT LOWER EXTREMITY ARTERIES. CLINICAL HISTORY: Pain. COMPARISON: Left lower extremity arterial doppler dated 10/09/2024. FINDINGS: Peak systolic velocities within the left lower arteries are as follows: Common femoral artery: 102 cm/s. Superficial femoral artery: 98 cm/s at proximal, 61 cm/s at mid, and 62 cm/s at distal segments. Popliteal artery: 53 cm/s at proximal and 58 cm/s at distal segments. Posterior tibial artery: 47 cm/s. Anterior tibial artery: No flow. Dorsalis pedis artery: 14 cm/s. The left lower limb arteries demonstrate monophasic waveforms in all arteries other than the proximal popliteal artery which demonstrates triphasic waveforms. There is intimal wall thickening and severe atherosclerosis in the left lower limb arteries. There are collaterals in the distal leg and flow to the dorsalis pedis artery is from the collaterals. IMPRESSION: Mild intimal wall thickening and severe atherosclerosis in the left lower limb arteries. The left lower limb arteries demonstrate monophasic waveforms in all arteries other than the proximal popliteal artery which demonstrates triphasic waveforms. Collaterals in the distal leg and flow to the dorsalis pedis artery is from the collaterals. No flow in the left anterior tibial artery. Recommend CT/MR angiogram. /Tanika
[2024-11-07 05:14] LABS: IMMATURE GRANULOCYTE ABSOLUTE 0.11 K/uL (0-1); NUCLEATED RED BLOOD CELLS 0.0 % (0.0-0.19); PLATELET COUNT (AUTO) 198 K/uL (130-400); RED BLOOD CELL COUNT(AUTO) 2.80 MIL/uL (4.50-6.20); RED CELL DISTRIBUTION WIDTH 15.4 % (11.0-15.5); WHITE BLOOD COUNT (AUTO) 17.5 K/uL (4.8-10.8)
[2024-11-07 05:35] LABS: ASPARTATE AMINOTRANSFERASE 9 U/L (10-37); CREATININE 7.2 mg/dL (0.5-1.3); GLOMERULAR FILTR. RATE CALC 8 mL/min (>90); GLUCOSE,RANDOM 82 mg/dL (70-105); SODIUM SERUM 140 mmol/L (136-145); TOTAL PROTEIN, SERUM 5.9 g/dL (6.0-8.3)
[2024-11-07 05:37] LABS: UREA NITROGEN, BLOOD 91 mg/dL (7-18)
[2024-11-07] MEDS: ENOXAPARIN SODIUM 30 MG/0.3 ML SQ SCH (08:16)
[2024-11-07] MEDS ORDERED: VANCOMYCIN 1G/250ML KIT 250 ML IV SCH (09:00)
--- NOTE | 2024-11-07 09:57 | PN ---
SUBJECTIVE: The patient is a very pleasant 59-year-old diabetic, male followup for an ischemic left foot with gangrene to the forefoot, nonoperable peripheral vascular disease per evaluation by [facility] on last admission several weeks ago. The patient with severe ischemic rest pain. The patient with leukocytosis, white count of 17.5, H and H of 8.5 and 25.9, platelets 198, neutrophils 77, albumin 1.9, glucose 86. The patient is currently receiving IV vancomycin and Levaquin. The patient is being followed by Dr. Jordan, General Surgery. The patient has had venous Dopplers on the left. No venous abnormalities. The patient has had arterial Doppler studies on the left, monophasic waveforms in all arteries other than the proximal popliteal. No flow seen in the left anterior tibial artery. X-rays left foot, calcification of all digital arteries, diffuse forefoot swelling. REVIEW OF SYSTEMS: CONSTITUTIONAL: No chills. No fever. No night sweats. No nausea, vomiting. No diarrhea. HEENT: No problems with his eyes, ears, nose or throat. CARDIOVASCULAR: Having no current chest pain, severe nonoperable peripheral vascular disease affecting the left lower extremity. INTEGUMENTARY: Wet gangrene to the entire forefoot on the left. EXTREMITIES: On examination, he has nonpalpable pedal pulses, pitting edema to his left foot. He has a posterior heel ulcer, necrotic 3 x 3 cm. He has necrotic digits, wet gangrene to the forefoot, edema, erythema and cellulitis. The patient has a T-max of 98.4, pulse 101, respirations 20, blood pressure 134/69. ASSESSMENT: He has wet gangrene to the left forefoot. He has a necrotic left heel ulcer. He has nonoperable peripheral vascular disease. He has ischemic rest pain. The patient is a candidate for a [id number] amputation. PLAN: I will discuss the case with Dr. Jordan, the general surgeon, and see if we can proceed with a [id number] amputation due to the patient's wet gangrene, sepsis, leukocytosis, nonoperative peripheral vascular disease to that left lower extremity. TID: [id number] RECEIPT: [id number]
--- NOTE | 2024-11-07 10:35 | NUR ---
ATTEMPTED TO BRING PT DOWN FOR MR FOOT. PT REFUSING EXAM AT THIS TIME. NURSE TO CALL IF PT CHANGES MIND. EXAM ON HOLD.
[2024-11-07] MEDS ORDERED: PHARMACY COMMUNICATION 1 EACH EACH MISC SCH (11:30)
--- NOTE | 2024-11-07 12:32 | NUR ---
[facility] Consult: Patient assessed by wound healing team. See wound assessment. Assessment and recommendations provided. Education provided. Addendum: 11/07/24 at 1503 by JONATHAN OVIEDO RN RN/RENAE Amended: Links added.
[2024-11-07] MEDS ORDERED: HYDROcodone/APAP 5/325 1 TAB TABLET PO SCH (13:00)
--- NOTE | 2024-11-07 13:13 | NUR ---
PT DUE FOR DIALYSIS TODAY, IS ON TTS SCHEDULE AND ORDERS RECEIVED FROM DR RAMACHANDRAN. ATTEMPTED TO DO DIALYSIS AT BEDSIDE, HOWEVER, PT REFUSING TO PROCEED DUE TO PAIN. PT STATES HE WOULD RATHER WAIT UNTIL TOMORROW. DR RAMACHANDRAN NOTIFIED.
[2024-11-07] MEDS ORDERED: HYDROcodone/APAP 5/325 1 TAB TABLET PO PRN (14:00)
--- NOTE | 2024-11-07 17:01 | PN ---
This is a 59-year-old male with concerns for vascular flow to lower extremity need of possible BKA by Dr. Jordan Interval history This 59-year-old male seen in his room resting Patient continues with left lower extremity discomfort Podiatry recommending left BKA Imaging reviewed by Dr. Jordan From surgical standpoint we will order CTA of the abdomen aorta with runoff to assess for any vascular abnormalities and if any cardiovascular interventions needed before surgical intervention Patient is likely to be scheduled for left BKA by Dr. Jordan Patient made aware of plan and agrees Patient to continue with diet and current pain management Doctor Julian updated in patient's status and surgical team to follow patient closely Vitals/Labs Vital Signs Date Time Temp Pulse Resp B/P (MAP) Pulse Ox O2 Delivery O2 Flow Rate FiO2 11/07/24 12:00 98.1 103 21 133/88 95 Room Air 11/07/24 00:43 0 21 Laboratory Tests 11/07/24 04:31 Medications Current Medications Vancomycin HCl 1 gm ONCE ONCE IV; Start 11/06/24 at 12:00; Stop 11/06/24 at 12:01; Status DC Levofloxacin 750 mg ONCE ONCE PO; Start 11/06/24 at 12:00; Stop 11/06/24 at 12:01; Status DC Morphine Sulfate 4 mg ONCE ONCE IVP Last administered on 11/06/24at 13:48; Start 11/06/24 at 12:00; Stop 11/06/24 at 12:01; Status DC Levofloxacin/ Dextrose 500 mg Q48H IV Last administered on 11/06/24at 15:46; Start 11/06/24 at 16:00; Stop 11/27/24 at 15:59 Vancomycin HCl 1 gm ONCE ONCE IV Last administered on 11/06/24at 13:48; Start 11/06/24 at 13:00; Stop 11/06/24 at 13:11; Status DC Vancomycin HCl 250 ml @ 166.667 mls/hr QTUSA IV; Start 11/07/24 at 09:00; Stop 11/06/24 at 13:22; Status DC Vancomycin HCl 1 each AD IV; Start 11/06/24 at 13:30; Stop 11/20/24 at 13:29 Vancomycin HCl 250 ml @ 166.667 mls/hr QTUTHSA[DIALYSIS] IV; Start 11/07/24 at 16:00; Stop 11/28/24 at 15:59 Famotidine 20 mg QTUTHSA@2100 PO Last administered on 11/06/24at 21:10; Start 11/06/24 at 21:00; Stop 12/06/24 at 20:59 Enoxaparin Sodium 30 mg DAILY SQ Last administered on 11/07/24at 08:16; Start 11/07/24 at 09:00; Stop 12/07/24 at 08:59 Acetaminophen/ Hydrocodone Bitart 1 tab Q4H PRN PO; Start 11/06/24 at 13:30; Stop 11/07/24 at 01:21; Status DC Acetaminophen/ Hydrocodone Bitart 2 tab Q4H PRN PO Last administered on 11/06/24at 22:09; Start 11/06/24 at 13:30; Stop 11/07/24 at 01:21; Status DC Insulin Glargine 10 units HS SQ Last administered on 11/06/24at 21:15; Start 11/06/24 at 21:00; Stop 11/07/24 at 11:22; Status DC Insulin Human Regular INSULIN SLIDING SCAL... ACHS SQ Last administered on 11/06/24at 21:15; Start 11/06/24 at 16:30; Stop 12/06/24 at 16:29 Atorvastatin Calcium 40 mg HS PO Last administered on 11/06/24at 21:10; Start 11/06/24 at 21:00; Stop 12/06/24 at 20:59 Nifedipine 60 mg Q24H PO Last administered on 11/06/24at 15:48; Start 11/06/24 at 14:30; Stop 12/06/24 at 14:29 Dextrose 50 ml AD PRN IV; Start 11/06/24 at 14:30; Stop 12/06/24 at 14:29 Glucagon 1 mg AD PRN IM; Start 11/06/24 at 14:30; Stop 12/06/24 at 14:29 Morphine Sulfate 2 mg Q4H PRN IVP Last administered on 11/07/24at 02:34; Start 11/07/24 at 01:30; Stop 11/07/24 at 08:00; Status DC Tramadol HCl 50 mg Q6H PRN PO; Start 11/07/24 at 01:30; Stop 11/12/24 at 01:29 Hydromorphone HCl 1 mg Q4H PRN IVP Last administered on 11/07/24at 08:16; Start 11/07/24 at 08:00; Stop 11/12/24 at 07:59 Pharmacy Profile Note 1 each AD MISC; Start 11/07/24 at 11:30; Stop 11/07/24 at 11:35; Status DC Hydromorphone HCl 1.5 mg ONCE ONCE IVP Last administered on 11/07/24at 12:01; Start 11/07/24 at 11:30; Stop 11/07/24 at 11:37; Status DC Acetaminophen/ Hydrocodone Bitart 2 tab Q8H PO; Start 11/07/24 at 13:00; Stop 11/07/24 at 13:45; Status DC Acetaminophen/ Hydrocodone Bitart 2 tab Q8H PRN PO; Start 11/07/24 at 14:00; Stop 11/07/24 at 13:57; Status DC Leptospermum Honey 1 APPL DAILY16 TP; Start 11/07/24 at 16:00; Stop 12/07/24 at 15:59 SILVERIO BOWEN Jr. Nov 07, 2024 17:01
[2024-11-07] MEDS: VANCOMYCIN 1G/250ML KIT 250 ML IV SCH (17:46)
[2024-11-07] MEDS: HONEY 1 APPL/ML TUBE TP SCH (17:46)
--- NOTE | 2024-11-07 18:05 | PN ---
[facility] PROGRESS NOTE Date of Service: Nov 07, 2024 Time of Service: 17:55 SUBJECTIVE: 11/07/24: Patient evaluated at bedside with family present. Patient was in pain in his left leg. Patient was given 1 mg of Dilaudid 30 minutes before but he w as still in pain. Given the patient's persistent high pain score, with ESRD and stable clinical status (alert, oriented, respiratory rate and O2 saturation within normal limits) an increased dose of 1.5 mg IV hydromorphone was ordered for more effective pain control. We will monitor for efficacy and signs of over- sedation. Patient stable with temperature at 98.1 pulse 103, respiratory rate 21, blood pressure 133/88 and the pulse ox of 95 on room air. His labs today showed his WBC dropping to 17.5 from 21.9 yesterday, his hemoglobin also dropped to 8.5 from 9.0. Patient's creatinine was at 7.2 and BUN at 91 he is due for dialysis today. The jinrikisha driver Dr. Jackson saw him today in the morning and assess that he has wet gangrene to the left forefoot and a necrotic left heel ulcer, he also has nonoperable peripheral vascular disease and has ischemic rest pain. He also mentioned that the patient is a candidate for a thxon-zzf-lper amputation. He may Brittni reviewed by Dr. Jordan, who is the surgeon. From surgical standpoint they ordered CTA of the abdomen aorta with runoff to access for any vascular abnormalities and if any cardiovascular interventions needed before surgical intervention. Patient is likely to be scheduled for left BKA by Dr. Jordan. Patient was made aware of the plan and he agrees. REVIEW OF SYSTEMS CONSTITUTIONAL: Denies fevers, chills, or night sweats. No unintentional weight loss reported. Pain in left lower leg NEUROLOGICAL: Denies headache, amaurosis fugax, motor weakness, sensory deficit, vertigo/spinning sensation, gait abnormalities, or tremors. ENT: No hearing loss, otalgia, otorrhea, rhinitis, rhinorrhea, hoarseness, or sore throat. CARDIOVASCULAR: Denies any exertional angina, dyspnea on exertion, orthopnea, paroxysmal nocturnal dyspnea, palpitations, life-threatening arrhythmias, claudication. PULMONARY: Denies any shortness of breath, cough, phlegm/sputum, hemoptysis, pleuritic chest pain. GASTROINTESTINAL: Denies any type of dysphagia to either liquids or solids. Denies nausea, vomiting, pyrosis, early satiety, abdominal pain, diarrhea, constipation, or changes in stool consistency or caliber. GENITOURINARY: Denies frequency, urgency, nocturia, hematuria or incontinence ENDOCRINOLOGIC: Denies polyuria, polydipsia, polyphagia or heat/cold intolerances. HEMATOLOGIC: Denies thrombophilia/previous clots, or coagulopathy/bleeding disorders. DERMATOLOGIC: Denies rashes or pruritus. PSYCHIATRIC: Denies any suicidal or homicidal ideation. Denies hallucinations. PHYSICAL EXAM GENERAL APPEARANCE: The patient is awake, alert, and oriented, in no acute cardiopulmonary distress. NEUROLOGICAL: Motor is 5/5 in bilateral upper and lower extremities proximal to distal. No sensory deficits. HEENT: Face is symmetric. Pupils are equal and reactive. Extraocular movements are intact. NECK: Supple. No JVD. No thyromegaly. No submental, submandibular, pre-/p ostauricular, occipital or supraclavicular lymphadenopathy. CHEST: Normal chest expansion. No Telemetry. LUNGS: Absence of any rales, rhonchi or any wheezing. CARDIOVASCULAR: Regular. S1 and S2 normal. No appreciable rubs, murmurs or gallops. ABDOMEN: Soft, nontender, and nondistended. There is no rebound, voluntary guarding, or rigidity. : Deferred. No Hutson. EXTREMITIES: Gangrene to left foot, skin avulsion to the heel and plantar aspect. Swelling of left foot with tenderness proximally and decreased sensation distally. Pulses equal, no cyanosis. BKA of RLE SKIN: No skin breakdown. Vital Signs (last 8hr) Date Time Temp Pulse Resp B/P (MAP) Pulse Ox O2 Delivery O2 Flow Rate FiO2 11/07/24 12:00 98.1 103 21 133/88 95 Room Air LABS: Laboratory: Test 11/07/24 17:29 11/07/24 04:31 11/06/24 20:27 11/06/24 10:33 Range/Units Whole Blood Glucose 96 70-110 MG/DL White Blood Count 17.5 H 4.8-10.8 K/uL Red Blood Count 2.80 L 4.50-6.20 MIL/uL Hemoglobin 8.5 L 14.0-18.0 g/dL Hematocrit 25.9 L 42-54 % Mean Corpuscular Volume 92.5 79-99 fL Mean Corpuscular Hemoglobin 30.4 27.0-33.0 pg Mean Corpuscular Hemoglobin Concent 32.8 32.0-36.0 g/dL Red Cell Distribution Width 15.4 11.0-15.5 % Platelet Count 198 130-400 K/uL Mean Platelet Volume 11.2 H 7.5-10.5 fL Immature Granulocyte % (Auto) 0.6 0-1 % Neutrophils (%) (Auto) 77.0 40.0-77.0 % Lymphocytes (%) (Auto) 13.3 L 21.0-51.0 % Monocytes (%) (Auto) 7.2 3.0-13.0 % Eosinophils (%) (Auto) 1.7 0.0-8.0 % Basophils (%) (Auto) 0.2 0.0-5.0 % Neutrophils # (Auto) 13.5 H 1.8-7.7 K/uL Lymphocytes # (Auto) 2.3 1.0-4.8 K/uL Monocytes # (Auto) 1.3 H 0.1-1.0 K/uL Eosinophils # (Auto) 0.29 0.00-0.70 K/uL Basophils # (Auto) 0.03 0.00-0.20 K/uL Absolute Immature Granulocyte (auto 0.11 0-1 K/uL Nucleated Red Blood Cells 0.0 0.0-0.19 % Erythrocyte Sedimentation Rate 30 H 0-20 MM/HR Sodium Level 140 136-145 mmol/L Potassium Level 4.1 3.5-5.1 mmol/L Chloride Level 102 101-111 mmol/L Carbon Dioxide Level 25 21-32 mmol/L Blood Urea Nitrogen 91 *H 7-18 mg/dL Creatinine 7.2 H 0.5-1.3 mg/dL Glomerular Filtration Rate Calc 8 >90 mL/min Random Glucose 82 # 70-105 mg/dL Total Calcium 7.4 L 8.5-10.1 mg/dL Total Bilirubin 0.6 0.2-1.0 mg/dL Aspartate Amino Transf (AST/SGOT) 9 L 10-37 U/L Alanine Aminotransferase (ALT/SGPT) < 6 L 12-78 U/L Alkaline Phosphatase 110 50-136 U/L Total Protein 5.9 L 6.0-8.3 g/dL Albumin 1.9 L 3.5-5.0 g/dL Bedside Glucose Comment Notified Nurse White Cell Morphology Comment See comments Current Medications Medications (Trade) Dose Ordered Sig/Idania Route PRN Reason Start Time Stop Time Status Last Admin Dose Admin Acetaminophen/ Hydrocodone Bitart (NORco 5/325MG) 1 tab Q4H PRN PO MODERATE PAIN (4-6) 11/06/24 13:30 11/07/24 01:21 DC Acetaminophen/ Hydrocodone Bitart (NORco 5/325MG) 2 tab Q4H PRN PO SEVERE PAIN (7-10) 11/06/24 13:30 11/07/24 01:21 DC 11/06/24 22:09 2 TAB Acetaminophen/ Hydrocodone Bitart (NORco 5/325MG) 2 tab Q8H PO 11/07/24 13:00 11/07/24 13:45 DC Acetaminophen/ Hydrocodone Bitart (NORco 5/325MG) 2 tab Q8H PRN PO PAIN LEVEL 7 TO 10 11/07/24 14:00 11/07/24 13:57 DC Atorvastatin Calcium (LIPItor 40MG) 40 mg HS PO 11/06/24 21:00 12/06/24 20:59 11/06/24 21:10 40 MG Dextrose (D50w) 50 ml AD PRN IV HYPOGLYCEMIA PROTOCOL 11/06/24 14:30 12/06/24 14:29 Enoxaparin Sodium (Lovenox) 30 mg DAILY SQ 11/07/24 09:00 12/07/24 08:59 11/07/24 08:16 30 MG Famotidine (Pepcid 20mg Tab) 20 mg QTUTHSA@2100 PO 11/06/24 21:00 12/06/24 20:59 11/06/24 21:10 20 MG Glucagon (Glucagon 1mg Kit) 1 mg AD PRN IM HYPOGLYCEMIA PROTOCOL 11/06/24 14:30 12/06/24 14:29 Hydromorphone HCl (DiLAUDid 1MG INJ) 1 mg Q4H PRN IVP SEVERE PAIN (7-10) 11/07/24 08:00 11/12/24 07:59 11/07/24 08:16 1 MG Insulin Glargine (LANtus 100 UNITS/ML 10 ML VIAL) 10 units HS SQ 11/06/24 21:00 11/07/24 11:22 DC 11/06/24 21:15 10 UNITS Insulin Human Regular (humuLIN R 100 UNIT/ML 3ML) INSULIN SLIDING SCAL... ACHS SQ 11/06/24 16:30 12/06/24 16:29 11/06/24 21:15 3 UNIT Leptospermum Honey (Medihoney) 1 APPL DAILY16 TP 11/07/24 16:00 12/07/24 15:59 11/07/24 17:46 1 APPL Levofloxacin/ Dextrose (LEvaquIN 500 MG/ D5W 100 ML) 500 mg Q48H IV 11/06/24 16:00 11/27/24 15:59 11/06/24 15:46 500 MG Morphine Sulfate (morPHINE 2MG SYG) 2 mg Q4H PRN IVP SEVERE PAIN (7-10) 11/07/24 01:30 11/07/24 08:00 DC 11/07/24 02:34 2 MG Nifedipine (adALAT 30MG) 60 mg Q24H PO 11/06/24 14:30 12/06/24 14:29 11/06/24 15:48 60 MG Pharmacy Profile Note (Lace Assessment) 1 each AD MISC 11/07/24 11:30 11/07/24 11:35 DC Tramadol HCl (UltRAM) 50 mg Q6H PRN PO MODERATE PAIN (4-6) 11/07/24 01:30 11/12/24 01:29 Vancomycin HCl 250 ml @ 166.667 mls/hr QTUSA IV 11/07/24 09:00 11/06/24 13:22 DC Vancomycin HCl 250 ml @ 166.667 mls/hr QTUTHSA[DIALYSIS] IV 11/07/24 16:00 11/28/24 15:59 11/07/24 17:46 166.667 MLS/HR Vancomycin HCl (Vancomycin Protocol) 1 each AD IV 11/06/24 13:30 11/20/24 13:29 DIAGNOSTICS / RADIOLOGY: [facility] [address] [place] [id number] IMAGING REPORT Signed PATIENT: FREDRICK LION MR#: [id number] : 1965 SEX: M AGE: 59 LOCATION: 3CH ORDER 16 STATUS: ADM IN [facility] REPORT#: [id number] SERVICE 14 REASON: Assess venous flow ORDERING PHYSICIAN: SILVERIO BOWEN Jr. PROCEDURE: VENOUS UNI - US VENOUS DOPPLER UNILATERAL EXAMINATION: SPECTRAL DOPPLER ULTRASOUND EXAMINATION OF THE LEFT LOWER EXTREMITY VEINS. CLINICAL HISTORY: To assess venous flow. COMPARISON: None provided. TECHNIQUE: Real-time ultrasound scan of the veins of the left lower extremity with color Doppler flow, spectral waveform analysis and compression. FINDINGS: DEEP VEINS: The common femoral, superficial femoral (proximal and distal), and popliteal veins are echolucent and compressible. There is normal color Doppler flow throughout. The visualized calf veins appear patent. There are echogenic strands in the mid superficial femoral vein, however flow is present and the vein is partially compressible. SUPERFICIAL VEINS: The greater saphenous veins are patent and compressible. SOFT TISSUES: No popliteal fossa cyst or other abnormalities. IMPRESSION: Linear echogenic strands in the left mid superficial femoral vein, reflecting chronic thrombosis with recanalization. No deep venous thrombosis evident in the remainder of the left lower extremity. No superficial thrombophlebitis in the left lower extremity. /[place] DICTATED BY: VARGHESE FISHER Jr., MD DATE: 11/07/24141 ELECTRONICALLY SIGNED BY: VARGHESE FISHER Jr., MD DATE: 11/07/24141 ASSESSMENT: Sepsis POA Leukocytosis WBC 21.9 POA Left foot gangrene Possible osteomyelitis of left foot ESRD on dialysis T, Th, S POA Uncontrolled DM II Chronic anemia with anemia of renal disease POA History of chronic corticosteroid use as outpatient with the prednisolone POA Psoriatic POA Uncontrolled hypertension POA PAD POA Recent history of [facility] for infected right BKA stump with osteomyelitis on IV antibiotics outpatient Recent Cultures wound positive for MRSA and MDRO E coli Recent history of right BKA site debridement 07/21/2024 followed by delayed primary closure on 07/24/[address] Montes PLAN: Sepsis POA * patient meets criteria for sepsis with WBC elevation of 21.9 and elevated ESR of 50. BUN of 87 with baseline in 30-40's. Cr of 7.0 * Patient started on vancomycin and levofloxacin due to penicillin and sulfa allergy * Due to ESRD no fluids were initiated at this time Left foot gangrene * The jinrikisha driver Dr. Jackson saw him today in the morning and assess that he has wet gangrene to the left forefoot and a necrotic left heel ulcer, he also has nonoperable peripheral vascular disease and has ischemic rest pain. He also mentioned that the patient is a candidate for a [id number] amputation. * The surgeon scheduled the left BKA for * From surgical standpoint they ordered CTA of the abdomen aorta with runoff to access for any vascular abnormalities and if any cardiovascular interventions needed before surgical intervention * Patient placed on Dilaudid instead of morphine as patient is ESRD ESRD on dialysis T, , S POA * Patient's labs show that his creatinine is at 7.2 and his BUN at 91 * This is most likely because he has not undergone dialysis * Patient scheduled to undergo dialysis today ATTESTATION BY PHYSICIAN I have seen and examined the patient. I reviewed the documentation, medical decision making, and treatment plan as noted by the resident provider above. I agree with the findings and plan of care. Elan Riley MD, ABHINAV MD Nov 07, 2024 18:05
--- NOTE | 2024-11-07 19:41 | NUR ---
PICCLINE Old piccline, to right upper arm removed per MD order, tip of catheter intact, no active bleeding noted, pressure applied to site, pressure dressing applied, secured with opsite, tolerating removal of piccline well, denies c/o pain.
--- NOTE | 2024-11-07 20:36 | CONS ---
NEPHROLOGY CONSULTATION REASON FOR CONSULTATION: Nephrology consultation for management of end-stage renal disease, on hemodialysis. HISTORY OF PRESENT ILLNESS: The patient is a 59-year-old male who is well known to me. He has history of end-stage renal disease, on dialysis, diabetes mellitus type 2 with nephropathy, neuropathy, hypertension, renal manifestation, dyslipidemia, peripheral arterial disease with a right below-knee amputation. The patient has been having issues with infected left foot. He was advised to come to the hospital due to issues with infection on the left foot. The patient's regular dialysis is on TTS. He was dialyzed today. He denies fever or chills. PAST MEDICAL HISTORY: As outlined in the history of present illness. FAMILY HISTORY: Noncontributory. SOCIAL HISTORY: No history of alcohol abuse or smoking. REVIEW OF SYSTEMS: The patient is unable to ambulate. No fever or chills. Rest of the review of systems is negative. ALLERGIES: ALLERGIC TO PENICILLINS AND SULFAS. CURRENT MEDICATIONS: Reviewed. PHYSICAL EXAMINATION: GENERAL: Reveals a pleasant male, in no major acute distress. VITAL SIGNS: Blood pressure 119/62, respirations 20, pulse 109, temperature 98.2. HEENT: Head is normocephalic. NECK: Supple. No JVD. Trachea central. LUNGS: Clear on auscultation and inspection. HEART: Normal cardiac sounds. ABDOMEN: Soft, nondistended. EXTREMITIES: Right lower extremity below-knee amputation. Left lower extremity, no edema. PSYCHIATRIC: The patient is awake, alert to time and place. NEUROLOGIC: Cranial nerves are grossly intact. No focal motor deficits. LABORATORY DATA: The WBC count is 17.5, hemoglobin 8.5. Sodium 140, potassium 4.1, BUN 91, creatinine 7.2. ASSESSMENT: * End-stage renal disease. The patient is on home hemodialysis. Scheduled dialysis while in the hospital is on TTS. * Diabetes mellitus type 2 with nephropathy. * Hypertension and renal manifestation. * Anemia and chronic kidney disease. * Peripheral arterial disease. * Diabetic foot infection. PLAN: * Continue renal diet. * Dialysis to continue TTS. * Antimicrobials to be adjusted to end-stage renal disease level. * Epogen for management of anemia. * Other plans as per physician involved in the care of the patient. TID: [id number] RECEIPT: [id number]
[2024-11-08] VITALS (16 sets, daily range): BP systolic 118–159; BP diastolic 60–90; PULSE 97–109; RESP 15–20; TEMP 98–99.1; O2SAT 95
--- NOTE | 2024-11-08 00:30 | CONS ---
INFECTIOUS DISEASE CONSULTATION DATE OF SERVICE: 11/07/2024 REQUESTING PHYSICIAN: Dr. Elan Riley. REASON FOR CONSULTATION: Left foot gangrene and osteomyelitis. HISTORY OF PRESENT ILLNESS: A 59-year-old male with history of hypertension, psoriasis, end-stage renal disease on dialysis, and obesity who presented to the hospital with left foot pain, ischemic changes, and swelling. The patient has a history of thrombolysis and peripheral vascular disease. He was recently treated and sent home with p.o. antibiotic. The patient is now found with wet gangrene, evaluated by Podiatry. Recommended below-knee amputation. The patient has been evaluated by General Surgery. No fever or chills. No nausea or vomiting. No diarrhea. No bleeding tendency. Denies cough or shortness of breath. No palpitation or orthopnea. PAST MEDICAL HISTORY: * Psoriasis. * ESRD, on dialysis. * Diabetes mellitus. * Obesity. * Peripheral vascular disease. * Bilateral foot osteomyelitis. * Diabetic foot ulcer. PAST SURGICAL HISTORY: * Left below-knee amputation. * Left below-knee stump revision. * AV fistula surgery. * Multiple wound debridement. * Peripheral angiogram with interventions. * Cholecystectomy. ALLERGIES: PENICILLIN, BUT TOLERATED CEPHALOSPORIN. SULFA. CURRENT MEDICATIONS: Include, * Vancomycin. * Cefepime. * Levofloxacin. * Morphine. * Tylenol. * Zofran. * Lovenox. SOCIAL HISTORY: No alcohol, tobacco, or illicit drug use. FAMILY HISTORY: Positive for diabetes mellitus. REVIEW OF SYSTEMS: Greater than 10 systems were reviewed, negative except as documented above. PHYSICAL EXAMINATION: GENERAL: Elderly male, awake. VITAL SIGNS: Temperature 98.9, pulse 76, respiratory rate 18, BP 133/68. EYES: No icterus. Pupils equal and reactive. HENT: No oral thrush seen. Moist oral mucosa. NECK: Supple. No JVD or thyromegaly. LUNGS: Good air entry. No rales, no rhonchi. CARDIOVASCULAR: S1 and S2. Regular. No murmur heard. ABDOMEN: Obese, soft, nontender. Bowel sound is present. CENTRAL NERVOUS SYSTEM: Awake, alert, oriented x 3. No focal deficits. SKIN: The patient has a lesion due to psoriasis. LYMPHATIC: No peripheral lymphadenopathy. BACK: No deformity, no pressure ulcer. EXTREMITIES: Wet gangrene involving the left foot. LABORATORY DATA: ESR 52, sodium 140, potassium 4.5, BUN . WBC 17.5, hemoglobin 8.5, platelets 198. Arterial Doppler shows . RADIOLOGY: Showed the left foot soft tissue swelling. ASSESSMENT: A 59-year-old male presented with fever, left foot swelling and right mass. Current problems include: * Sepsis. * Left foot gangrene and osteomyelitis. * Diabetic foot ulcer. * End-stage renal disease, on dialysis. * Obesity. * Psoriasis. PLAN: * Continue vancomycin. * Continue levofloxacin. * Continue dialysis. * Continue wound care. * Continue pain management. * Continue DVT prophylaxis. * Continue nutritional support. * Monitor electrolytes. * The patient will be followed up closely. Thank you for allowing me to participate in the care of this patient. TID: [id number] RECEIPT: [id number]
[2024-11-08 04:38] LABS: IMMATURE GRANULOCYTE ABSOLUTE 0.10 K/uL (0-1); NUCLEATED RED BLOOD CELLS 0.0 % (0.0-0.19); PLATELET COUNT (AUTO) 212 K/uL (130-400); RED BLOOD CELL COUNT(AUTO) 2.75 MIL/uL (4.50-6.20); RED CELL DISTRIBUTION WIDTH 15.6 % (11.0-15.5); WHITE BLOOD COUNT (AUTO) 15.8 K/uL (4.8-10.8)
[2024-11-08 05:13] LABS: ASPARTATE AMINOTRANSFERASE 18.0 U/L (10-37); GLOMERULAR FILTR. RATE CALC 7.0 mL/min (>90); GLUCOSE,RANDOM 95.0 mg/dL (70-105); SODIUM SERUM 141.0 mmol/L (136-145); TOTAL PROTEIN, SERUM 5.9 g/dL (6.0-8.3)
[2024-11-08 05:34] LABS: UREA NITROGEN, BLOOD 96.0 mg/dL (7-18)
[2024-11-08 05:35] LABS: CREATININE 8.1 mg/dL (0.5-1.3)
--- NOTE | 2024-11-08 06:25 | PN ---
SUBJECTIVE: The patient is a very pleasant 59-year-old diabetic male who is followed for left foot gangrene, ischemic rest pain, nonoperable peripheral vascular disease. White count 15.8, H and H 8.3 and 25.9, platelets 212, albumin 1.8. Afebrile, T-max 98.8, pulse 109, respirations 20, blood pressure 118/62. The patient is being evaluated for a left lower extremity [id number] amputation by the general surgery service. The patient is having severe left foot pain. Surgery is tentatively planned for . Due to the patient's severe pain to the left foot, I consulted Anesthesia last night for a popliteal nerve block for pain management. The patient is currently receiving vancomycin and Levaquin, morphine and Dilaudid for pain. REVIEW OF SYSTEMS: MUSCULOSKELETAL: Severe pain to the left foot. CONSTITUTIONAL: Denied any constitutional symptoms. GENITOURINARY: End-stage renal disease, currently receiving hemodialysis. CARDIOVASCULAR: No chest pain, nonoperable peripheral vascular disease. INTEGUMENTARY: Wet gangrene to the entire forefoot on the left, necrotic ulcer to the left heel. OBJECTIVE: EXTREMITIES: Wet gangrene to the left forefoot, necrotic left heel ulcer, nonoperable peripheral vascular disease, ischemic rest pain. ASSESSMENT: The patient is a candidate for [id number] amputation, tentatively planned for . PLAN: I consulted Anesthesia for a popliteal nerve block for pain management until the patient's surgery on . We will continue with the Levaquin IV and we will continue with the IV vancomycin. The patient has a [id number] amputation on the left tentatively scheduled for this . TID: [id number] RECEIPT: [id number]
--- NOTE | 2024-11-08 11:37 | PN ---
[facility] PROGRESS NOTE Date of Service: Nov 08, 2024 Time of Service: 11:36 SUBJECTIVE: 11/07/24: Patient evaluated at bedside with family present. Patient was in pain in his left leg. Patient was given 1 mg of Dilaudid 30 minutes before but he wa s still in pain. Given the patient's persistent high pain score, with ESRD and stable clinical status (alert, oriented, respiratory rate and O2 saturation within normal limits) an increased dose of 1.5 mg IV hydromorphone was ordered for more effective pain control. We will monitor for efficacy and signs of over- sedation. Patient stable with temperature at 98.1 pulse 103, respiratory rate 21, blood pressure 133/88 and the pulse ox of 95 on room air. His labs today showed his WBC dropping to 17.5 from 21.9 yesterday, his hemoglobin also dropped to 8.5 from 9.0. Patient's creatinine was at 7.2 and BUN at 91 he is due for dialysis today. The strategy execution consultant Dr. Jackson saw him today in the morning and assess that he has wet gangrene to the left forefoot and a necrotic left heel ulcer, he also has nonoperable peripheral vascular disease and has ischemic rest pain. He also mentioned that the patient is a candidate for a [id number] amputation. He may Brittni reviewed by Dr. Jordan, who is the surgeon. From surgical standpoint they ordered CTA of the abdomen aorta with runoff to access for any vascular abnormalities and if any cardiovascular interventions needed before surgical intervention. Patient is likely to be scheduled for left BKA by Dr. Jordan. Patient was made aware of the plan and he agrees. 11/08/24: Patient evaluated bedside without his family present. Patient was still in pain in his left leg after being given 1.5 mg Dilaudid. Patient refused dialysis yesterday because of his pain so today his creatinine increased to 8.1 from 7.2 yesterday his BUN increased to 96 from 91 yesterday. Spoke to the patient regarding this and he agreed to have his dialysis performed today, hopefully his labs will improve tomorrow. His WBC did decrease to 15.8 from 17.5 yesterday. REVIEW OF SYSTEMS CONSTITUTIONAL: Denies fevers, chills, or night sweats. No unintentional weight loss reported. Pain in left lower leg NEUROLOGICAL: Denies headache, amaurosis fugax, motor weakness, sensory deficit, vertigo/spinning sensation, gait abnormalities, or tremors. ENT: No hearing loss, otalgia, otorrhea, rhinitis, rhinorrhea, hoarseness, or sore throat. CARDIOVASCULAR: Denies any exertional angina, dyspnea on exertion, orthopnea, paroxysmal nocturnal dyspnea, palpitations, life-threatening arrhythmias, claudication. PULMONARY: Denies any shortness of breath, cough, phlegm/sputum, hemoptysis, pleuritic chest pain. GASTROINTESTINAL: Denies any type of dysphagia to either liquids or solids. Denies nausea, vomiting, pyrosis, early satiety, abdominal pain, diarrhea, constipation, or changes in stool consistency or caliber. GENITOURINARY: Denies frequency, urgency, nocturia, hematuria or incontinence ENDOCRINOLOGIC: Denies polyuria, polydipsia, polyphagia or heat/cold intolerances. HEMATOLOGIC: Denies thrombophilia/previous clots, or coagulopathy/bleeding disorders. DERMATOLOGIC: Denies rashes or pruritus. PSYCHIATRIC: Denies any suicidal or homicidal ideation. Denies hallucinations. PHYSICAL EXAM GENERAL APPEARANCE: The patient is awake, alert, and oriented, in no acute cardiopulmonary distress. NEUROLOGICAL: Motor is 5/5 in bilateral upper and lower extremities proximal to distal. No sensory deficits. HEENT: Face is symmetric. Pupils are equal and reactive. Extraocular movements are intact. NECK: Supple. No JVD. No thyromegaly. No submental, submandibular, pre-/posta uricular, occipital or supraclavicular lymphadenopathy. CHEST: Normal chest expansion. No Telemetry. LUNGS: Absence of any rales, rhonchi or any wheezing. CARDIOVASCULAR: Regular. S1 and S2 normal. No appreciable rubs, murmurs or gallops. ABDOMEN: Soft, nontender, and nondistended. There is no rebound, voluntary guarding, or rigidity. : Deferred. No Hutson. EXTREMITIES: Gangrene to left foot, skin avulsion to the heel and plantar aspect. Swelling of left foot with tenderness proximally and decreased sensation distally. Pulses equal, no cyanosis. BKA of RLE SKIN: No skin breakdown. Vital Signs (last 8hr) Date Time Temp Pulse Resp B/P (MAP) Pulse Ox O2 Delivery O2 Flow Rate FiO2 11/08/24 08:00 95 Room Air* 0 21 11/08/24 08:00 98.2 100 18 143/67 95 Room Air 11/08/24 04:00 98.1 100 20 148/77 95 Room Air LABS: Laboratory: Test 11/08/24 11:00 11/08/24 04:33 11/07/24 04:31 Range/Units Whole Blood Glucose 73 70-110 MG/DL Bedside Glucose Comment Notified Nurse White Blood Count 15.8 H 4.8-10.8 K/uL Red Blood Count 2.75 L 4.50-6.20 MIL/uL Hemoglobin 8.3 L 14.0-18.0 g/dL Hematocrit 25.9 L 42-54 % Mean Corpuscular Volume 94.2 79-99 fL Mean Corpuscular Hemoglobin 30.2 27.0-33.0 pg Mean Corpuscular Hemoglobin Concent 32.0 32.0-36.0 g/dL Red Cell Distribution Width 15.6 H 11.0-15.5 % Platelet Count 212 130-400 K/uL Mean Platelet Volume 11.5 H 7.5-10.5 fL Immature Granulocyte % (Auto) 0.6 0-1 % Neutrophils (%) (Auto) 76.3 40.0-77.0 % Lymphocytes (%) (Auto) 14.0 L 21.0-51.0 % Monocytes (%) (Auto) 7.8 3.0-13.0 % Eosinophils (%) (Auto) 1.1 0.0-8.0 % Basophils (%) (Auto) 0.2 0.0-5.0 % Neutrophils # (Auto) 12.1 H 1.8-7.7 K/uL Lymphocytes # (Auto) 2.2 1.0-4.8 K/uL Monocytes # (Auto) 1.2 H 0.1-1.0 K/uL Eosinophils # (Auto) 0.18 0.00-0.70 K/uL Basophils # (Auto) 0.03 0.00-0.20 K/uL Absolute Immature Granulocyte (auto 0.10 0-1 K/uL Nucleated Red Blood Cells 0.0 0.0-0.19 % Sodium Level 141 136-145 mmol/L Potassium Level 5.3 H 3.5-5.1 mmol/L Chloride Level 105 101-111 mmol/L Carbon Dioxide Level 25 21-32 mmol/L Blood Urea Nitrogen 96 *H 7-18 mg/dL Creatinine 8.1 *H 0.5-1.3 mg/dL Glomerular Filtration Rate Calc 7 >90 mL/min Random Glucose 95 70-105 mg/dL Total Calcium 7.5 L 8.5-10.1 mg/dL Total Bilirubin 0.7 0.2-1.0 mg/dL Aspartate Amino Transf (AST/SGOT) 18 10-37 U/L Alanine Aminotransferase (ALT/SGPT) 7 L 12-78 U/L Alkaline Phosphatase 111 50-136 U/L Total Protein 5.9 L 6.0-8.3 g/dL Albumin 1.8 L 3.5-5.0 g/dL Erythrocyte Sedimentation Rate 30 H 0-20 MM/HR Current Medications Medications (Trade) Dose Ordered Sig/Idania Route PRN Reason Start Time Stop Time Status Last Admin Dose Admin Acetaminophen/ Hydrocodone Bitart (NORco 5/325MG) 1 tab Q4H PRN PO MODERATE PAIN (4-6) 11/06/24 13:30 11/07/24 01:21 DC Acetaminophen/ Hydrocodone Bitart (NORco 5/325MG) 2 tab Q4H PRN PO SEVERE PAIN (7-10) 11/06/24 13:30 11/07/24 01:21 DC 11/06/24 22:09 2 TAB Acetaminophen/ Hydrocodone Bitart (NORco 5/325MG) 2 tab Q8H PO 11/07/24 13:00 11/07/24 13:45 DC Acetaminophen/ Hydrocodone Bitart (NORco 5/325MG) 2 tab Q8H PRN PO PAIN LEVEL 7 TO 10 11/07/24 14:00 11/07/24 13:57 DC Acetaminophen/ Hydrocodone Bitart (NORco 5/325MG) 2 tab Q8H PRN PO MODERATE PAIN (4-6) 11/07/24 18:30 11/12/24 18:29 Atorvastatin Calcium (LIPItor 40MG) 40 mg HS PO 11/06/24 21:00 12/06/24 20:59 11/06/24 21:10 40 MG Dextrose (D50w) 50 ml AD PRN IV HYPOGLYCEMIA PROTOCOL 11/06/24 14:30 12/06/24 14:29 Enoxaparin Sodium (Lovenox) 30 mg DAILY SQ 11/07/24 09:00 12/07/24 08:59 11/08/24 08:42 30 MG Famotidine (Pepcid 20mg Tab) 20 mg QTUTHSA@2100 PO 11/06/24 21:00 12/06/24 20:59 11/06/24 21:10 20 MG Glucagon (Glucagon 1mg Kit) 1 mg AD PRN IM HYPOGLYCEMIA PROTOCOL 11/06/24 14:30 12/06/24 14:29 Hydromorphone HCl (DiLAUDid 1MG INJ) 1 mg Q4H PRN IVP SEVERE PAIN (7-10) 11/07/24 08:00 11/12/24 07:59 11/08/24 08:47 1 MG Insulin Glargine (LANtus 100 UNITS/ML 10 ML VIAL) 10 units HS SQ 11/06/24 21:00 11/07/24 11:22 DC 11/06/24 21:15 10 UNITS Insulin Human Regular (humuLIN R 100 UNIT/ML 3ML) INSULIN SLIDING SCAL... ACHS SQ 11/06/24 16:30 12/06/24 16:29 11/06/24 21:15 3 UNIT Leptospermum Honey ([facility]) 1 APPL DAILY16 TP 11/07/24 16:00 12/07/24 15:59 11/07/24 17:46 1 APPL Levofloxacin/ Dextrose (LEvaquIN 500 MG/ D5W 100 ML) 500 mg Q48H IV 11/06/24 16:00 11/27/24 15:59 11/06/24 15:46 500 MG Morphine Sulfate (morPHINE 2MG SYG) 2 mg Q4H PRN IVP SEVERE PAIN (7-10) 11/07/24 01:30 11/07/24 08:00 DC 11/07/24 02:34 2 MG Nifedipine (adALAT 30MG) 60 mg Q24H PO 11/06/24 14:30 12/06/24 14:29 11/06/24 15:48 60 MG Ondansetron HCl (zoFRAN 4MG INJ) 4 mg Q6H PRN IVP NAUSEA/VOMITING 11/07/24 19:30 12/07/24 19:29 Pharmacy Profile Note (Lace Assessment) 1 each AD MISC 11/07/24 11:30 11/07/24 11:35 DC Tramadol HCl (UltRAM) 50 mg Q6H PRN PO MODERATE PAIN (4-6) 11/07/24 01:30 11/07/24 18:09 DC Vancomycin HCl 250 ml @ 166.667 mls/hr QTUSA IV 11/07/24 09:00 11/06/24 13:22 DC Vancomycin HCl 250 ml @ 166.667 mls/hr QTUTHSA[DIALYSIS] IV 11/07/24 16:00 11/28/24 15:59 11/07/24 17:46 166.667 MLS/HR Vancomycin HCl (Vancomycin Protocol) 1 each AD IV 11/06/24 13:30 11/20/24 13:29 DIAGNOSTICS / RADIOLOGY: [ ] ASSESSMENT: Sepsis POA Leukocytosis WBC 21.9 POA Left foot gangrene Possible osteomyelitis of left foot ESRD on dialysis , , POA Uncontrolled DM II Chronic anemia with anemia of renal disease POA History of chronic corticosteroid use as outpatient with the prednisolone POA Psoriatic POA Uncontrolled hypertension POA PAD POA Recent history of hospitalization [facility] for infected right BKA stump with osteomyelitis on IV antibiotics outpatient Recent Cultures wound positive for MRSA and MDRO E coli Recent history of right BKA site debridement 07/21/2024 followed by delayed primary closure on 07/24/[address] Montes PLAN: Sepsis POA * patient meets criteria for sepsis with WBC elevation of 21.9 and elevated ESR of 50. BUN of 87 with baseline in 30-40's. Cr of 7.0 * Patient started on vancomycin and levofloxacin due to penicillin and sulfa allergy * Due to ESRD no fluids were initiated at this time Left foot gangrene * The strategy execution consultant Dr. Jackson saw him today in the morning and assess that he has wet gangrene to the left forefoot and a necrotic left heel ulcer, he also has nonoperable peripheral vascular disease and has ischemic rest pain. He also mentioned that the patient is a candidate for a [id number]-[id number] amputation. * The surgeon scheduled the left BKA for * From surgical standpoint they ordered CTA of the abdomen aorta with runoff to access for any vascular abnormalities and if any cardiovascular interventions needed before surgical intervention * Patient placed on Dilaudid instead of morphine as patient is ESRD ESRD on dialysis , , POA * Patient's labs show that his creatinine is at 7.2 and his BUN at 91 * This is most likely because he has not undergone dialysis * Patient scheduled to undergo dialysis today ALEX FISHER MD Nov 08, 2024 11:36
[2024-11-08 12:53] LABS: % IRON SATURATION 23.8 % (30-44); IRON, SERUM 31.0 mcg/dL (65-175)
--- NOTE | 2024-11-08 14:38 | PN ---
PROGRESS NOTE Date of Service: Nov 08, 2024 Time of Service: 14:09 SUBJECTIVE: Patient has refused HD treatment, yesterday and earlier today. has agreed at the moment. Denies fever chills and pain REVIEW OF SYSTEMS CONSTITUTIONAL: Denies fever, chills, or fatigue. HEAD/FACE: No signs of trauma. EENT: Denies eye pain, blurred vision, double vision, or light sensitivity. RESPIRATORY: Denies shortness of breath, cough, wheezing CARDIOVASCULAR: Denies chest pain, palpitation, syncope GASTROINTESTINAL/ABDOMINAL: Denies abdominal pain, constipation, diarrhea, nausea or vomiting GENITOURINARY: Denies dysuria or hematuria. MUSCULOSKELETAL: Denies joint pain, tenderness, or trauma. INTEGUMENTARY: Denies rash or itchiness NEUROLOGICAL/PSYCH: Denies anxiety, depression, heat or cold intolerance. PHYSICAL EXAM EYES: Anicteric. Pupils equal and reactive. HENT: No oral thrush seen, moist Oral mucosa NECK: Supple, no JVD or thyromegaly. LUNGS: Good air entry. No rales, no rhonchi. CARDIOVASCULAR: S1, S2 regular. No murmur heard. ABDOMEN: Soft, non tender, bowel sounds present, no organomegaly CENTRAL NERVOUS SYSTEM: Awake, alert, oriented x 3. No focal deficits. SKIN: No rashes, no swelling. LYMPHATICS: No peripheral lymphadenopathy MUSCULOSKELETAL: No joint swelling, erythema or tenderness. EXTREMITIES: No cyanosis or clubbing BACK: No deformity, no pressure ulcer. GENITOURINARY: No dysuria or hematuria Vital Signs (last 8hr) Date Time Temp Pulse Resp B/P (MAP) Pulse Ox O2 Delivery O2 Flow Rate FiO2 11/08/24 11:35 98.4 98 16 130/62 96 Room Air 21 11/08/24 08:00 95 Room Air* 0 21 11/08/24 08:00 98.2 100 18 143/67 95 Room Air LABS: Laboratory: Test 11/08/24 11:00 11/08/24 04:33 11/07/24 04:31 Range/Units Whole Blood Glucose 73 70-110 MG/DL Bedside Glucose Comment Notified Nurse White Blood Count 15.8 H 4.8-10.8 K/uL Red Blood Count 2.75 L 4.50-6.20 MIL/uL Hemoglobin 8.3 L 14.0-18.0 g/dL Hematocrit 25.9 L 42-54 % Mean Corpuscular Volume 94.2 79-99 fL Mean Corpuscular Hemoglobin 30.2 27.0-33.0 pg Mean Corpuscular Hemoglobin Concent 32.0 32.0-36.0 g/dL Red Cell Distribution Width 15.6 H 11.0-15.5 % Platelet Count 212 130-400 K/uL Mean Platelet Volume 11.5 H 7.5-10.5 fL Immature Granulocyte % (Auto) 0.6 0-1 % Neutrophils (%) (Auto) 76.3 40.0-77.0 % Lymphocytes (%) (Auto) 14.0 L 21.0-51.0 % Monocytes (%) (Auto) 7.8 3.0-13.0 % Eosinophils (%) (Auto) 1.1 0.0-8.0 % Basophils (%) (Auto) 0.2 0.0-5.0 % Neutrophils # (Auto) 12.1 H 1.8-7.7 K/uL Lymphocytes # (Auto) 2.2 1.0-4.8 K/uL Monocytes # (Auto) 1.2 H 0.1-1.0 K/uL Eosinophils # (Auto) 0.18 0.00-0.70 K/uL Basophils # (Auto) 0.03 0.00-0.20 K/uL Absolute Immature Granulocyte (auto 0.10 0-1 K/uL Nucleated Red Blood Cells 0.0 0.0-0.19 % Sodium Level 141 136-145 mmol/L Potassium Level 5.3 H 3.5-5.1 mmol/L Chloride Level 105 101-111 mmol/L Carbon Dioxide Level 25 21-32 mmol/L Blood Urea Nitrogen 96 *H 7-18 mg/dL Creatinine 8.1 *H 0.5-1.3 mg/dL Glomerular Filtration Rate Calc 7 >90 mL/min Random Glucose 95 70-105 mg/dL Total Calcium 7.5 L 8.5-10.1 mg/dL Iron Level 31 #L 65-175 mcg/dL Total Iron Binding Capacity 130 L 250-450 mcg/dL Percent Iron Saturation 23.8 L 30-44 % Total Bilirubin 0.7 0.2-1.0 mg/dL Aspartate Amino Transf (AST/SGOT) 18 10-37 U/L Alanine Aminotransferase (ALT/SGPT) 7 L 12-78 U/L Alkaline Phosphatase 111 50-136 U/L Total Protein 5.9 L 6.0-8.3 g/dL Albumin 1.8 L 3.5-5.0 g/dL Erythrocyte Sedimentation Rate 30 H 0-20 MM/HR DIAGNOSTICS / RADIOLOGY: EXAMINATION: SPECTRAL DOPPLER ULTRASOUND EXAMINATION OF THE LEFT LOWER EXTREMITY VEINS. CLINICAL HISTORY: To assess venous flow. COMPARISON: None provided. TECHNIQUE: Real-time ultrasound scan of the veins of the left lower extremity with color Doppler flow, spectral waveform analysis and compression. FINDINGS: DEEP VEINS: The common femoral, superficial femoral (proximal and distal), and popliteal veins are echolucent and compressible. There is normal color Doppler flow throughout. The visualized calf veins appear patent. There are echogenic strands in the mid superficial femoral vein, however flow is present and the vein is partially compressible. SUPERFICIAL VEINS: The greater saphenous veins are patent and compressible. SOFT TISSUES: No popliteal fossa cyst or other abnormalities. IMPRESSION: Linear echogenic strands in the left mid superficial femoral vein, reflecting chronic thrombosis with recanalization. No deep venous thrombosis evident in the remainder of the left lower extremity. No superficial thrombophlebitis in the left lower extremity. /[place] ASSESSMENT: End-stage renal disease. The patient is on home hemodialysis. Scheduled dialysis while in the hospital is on TTS. Diabetes mellitus type 2 with nephropathy. Hypertension and renal manifestation. Anemia and chronic kidney disease. Peripheral arterial disease. Diabetic foot infection. PLAN: Plan HD today Continue renal diet. Antimicrobials to be adjusted to end-stage renal disease level. Epogen for management of anemia. Other plans as per physician involved in the care of the patient. [facility] Nov 08, 2024 14:38
[2024-11-08] MEDS: 0.9%NACL 1000ML 1,000 ML IV SCH (15:26)
--- NOTE | 2024-11-08 16:23 | PN ---
INFECTIOUS DISEASE PROGRESS NOTE Date of Service: Nov 08, 2024 SUBJECTIVE: This is a 59-year-old male patient who was seen and examined at bedside in room 318. Patient is awake, alert and oriented x3. The left foot preliminary wound cultures is growing Gram-negative rods. Patient is currently on vancomycin per pharmacy protocol and levofloxacin IV. The WBC has trended down to 15.8 today from 17.5 yesterday. Patient remains afebrile. We will continue vancomycin and levofloxacin IV and follow up on the final wound culture results. PHYSICAL EXAM EYES: Anicteric. Pupils equal and reactive. HENT: No oral thrush seen, moist Oral mucosa. NECK: Supple, no JVD or thyromegaly. LUNGS: Good air entry. No rales, no rhonchi. CARDIOVASCULAR: S1, S2 regular. No murmur heard. ABDOMEN: Soft, non tender, bowel sounds present, no organomegaly. CENTRAL NERVOUS SYSTEM: Awake, alert, oriented x 3. SKIN: No rashes, no swelling. Left foot diabetic ulcer with gangrene. LYMPHATICS: No peripheral lymphadenopathy. MUSCULOSKELETAL: No joint swelling, erythema or tenderness. Hx of right [id number] amputation. EXTREMITIES: No cyanosis or clubbing. BACK: No deformity, no pressure ulcer. GENITOURINARY: No dysuria or hematuria. Vital Sign (Last 12 Hours) 11/08/24 11/08/24 11/08/24 11/08/24 08:00 08:00 11:35 14:45 Temp 98.2 98.4 99.1 Pulse 100 98 97 Resp 18 16 15 B/P (MAP) 143/67 130/62 122/60 Pulse Ox 95 95 96 O2 Delivery Room Air Room Air* Room Air Room Air O2 Flow Rate 0 FiO2 21 21 Intake & Output (last 24hrs) 11/07/24 11/07/24 11/08/24 14:59 22:59 06:59 Intake Total 300 ml Balance 300 ml LABS: Laboratory: Test 11/08/24 15:54 11/08/24 04:33 11/07/24 04:31 Range/Units Whole Blood Glucose 83 70-110 MG/DL Bedside Glucose Comment Notified Nurse White Blood Count 15.8 H 4.8-10.8 K/uL Red Blood Count 2.75 L 4.50-6.20 MIL/uL Hemoglobin 8.3 L 14.0-18.0 g/dL Hematocrit 25.9 L 42-54 % Mean Corpuscular Volume 94.2 79-99 fL Mean Corpuscular Hemoglobin 30.2 27.0-33.0 pg Mean Corpuscular Hemoglobin Concent 32.0 32.0-36.0 g/dL Red Cell Distribution Width 15.6 H 11.0-15.5 % Platelet Count 212 130-400 K/uL Mean Platelet Volume 11.5 H 7.5-10.5 fL Immature Granulocyte % (Auto) 0.6 0-1 % Neutrophils (%) (Auto) 76.3 40.0-77.0 % Lymphocytes (%) (Auto) 14.0 L 21.0-51.0 % Monocytes (%) (Auto) 7.8 3.0-13.0 % Eosinophils (%) (Auto) 1.1 0.0-8.0 % Basophils (%) (Auto) 0.2 0.0-5.0 % Neutrophils # (Auto) 12.1 H 1.8-7.7 K/uL Lymphocytes # (Auto) 2.2 1.0-4.8 K/uL Monocytes # (Auto) 1.2 H 0.1-1.0 K/uL Eosinophils # (Auto) 0.18 0.00-0.70 K/uL Basophils # (Auto) 0.03 0.00-0.20 K/uL Absolute Immature Granulocyte (auto 0.10 0-1 K/uL Nucleated Red Blood Cells 0.0 0.0-0.19 % Sodium Level 141 136-145 mmol/L Potassium Level 5.3 H 3.5-5.1 mmol/L Chloride Level 105 101-111 mmol/L Carbon Dioxide Level 25 21-32 mmol/L Blood Urea Nitrogen 96 *H 7-18 mg/dL Creatinine 8.1 *H 0.5-1.3 mg/dL Glomerular Filtration Rate Calc 7 >90 mL/min Random Glucose 95 70-105 mg/dL Total Calcium 7.5 L 8.5-10.1 mg/dL Iron Level 31 #L 65-175 mcg/dL Total Iron Binding Capacity 130 L 250-450 mcg/dL Percent Iron Saturation 23.8 L 30-44 % Total Bilirubin 0.7 0.2-1.0 mg/dL Aspartate Amino Transf (AST/SGOT) 18 10-37 U/L Alanine Aminotransferase (ALT/SGPT) 7 L 12-78 U/L Alkaline Phosphatase 111 50-136 U/L Total Protein 5.9 L 6.0-8.3 g/dL Albumin 1.8 L 3.5-5.0 g/dL Erythrocyte Sedimentation Rate 30 H 0-20 MM/HR DIAGNOSTICS / RADIOLOGY: PATIENT: FREDRICK LION ACCT: [id number] LOC: [facility] U: [id number] AGE/SX: 59/M ROOM: [facility] RE11/06/[address]: DANICA THOMAS MD : 1965 BED: 1 DIS: STATUS: ADM IN TLOC: SPEC: [id number] HEIDI: 11/06/24-161 STATUS: RES REQ: [id number] RECD: 11/06/24-[address]: SASHA DIMAS SOURCE: FOOT ENTR: 11/06/24-[address] [facility] [address]: [facility]PH[facility]ES [facility] STEPHANIE SAMPSON ISABEL MD ORDERED: RAVINDER CULTURE, AEROBIC CULTURE Procedure Result [place]ivid[place] Date-Time ANAEROBIC CULTURE Preliminary 11/08/24 [facility] DESCRIPTION: REPORT 1: NO ANAEROBES AT 24-35 HOURS; STUDIES TO CONTINUE Test(s) performed by: [facility] [address] [place] [address] AEROBIC CULTURE Preliminary 11/08/24 [facility] DESCRIPTION: REPORT 1: 3+ GRAM NEGATIVE RODS IDENTIFICATION AND SENSITIVITY TO FOLLOW ASSESSMENT: Left foot diabetic ulcer with gangrene and osteomyelitis. Sepsis. Leukocytosis. End-stage renal disease, on dialysis. Diabetes mellitus. Anemia with a history of blood transfusion. Psoriasis. Possible fracture of the third proximal phalanx base. PLAN: Continue vancomycin per pharmacy protocol. Continue levofloxacin. Continue dialysis as recommended by wash barrel leader. Continue pain management. Continue wound care. Pending General surgery evaluation for possible [id number] amputation. We will monitor electrolytes. ATTESTATION BY PHYSICIAN I have seen and examined the patient. I reviewed the documentation, medical decision making, and treatment plan as noted by the mid-level provider above. I agree with the findings and plan of care. ENEDELIA GUAMAN MD, MIRTA L [facility] Nov 08, 2024 16:23
--- NOTE | 2024-11-08 16:43 | PN ---
This is a 59-year-old male with concerns of left foot gangrene need a possible BKA Interval history: This 59-year-old male seen in his room Patient is now undergoing dialysis after initial refusal yesterday and earlier today CTA ordered yesterday still pending Patient is hemodynamically stable white count trending down Patient also evaluated by Podiatry where a popliteal nerve block has been recommended for pain management and anesthesia has been consulted Physical exam General: Awake alert and oriented Heart: Regular rate and rhythm} Lungs: Clear to auscultation no distress Abdomen: [Soft, nontender, nondistended Left foot gangrene noted Assessment : This is a 59-year-old male with concerns of left foot gangrene in need of possible BKA Plan: This point in time with the patient is hemodynamically stable in white count trending down we will continue with conservative management until appropriate imaging complete Patient may need bypass by Cardiovascular team pending imaging for potential better perfusion after BKA Patient made aware of plan Patient to continue with dialysis as scheduled Doctor Julian to be updated in patient's status and surgical team to follow patient closely Vitals/Labs Vital Signs Date Time Temp Pulse Resp B/P (MAP) Pulse Ox O2 Delivery O2 Flow Rate FiO2 11/08/24 14:45 99.1 97 15 122/60 Room Air 11/08/24 11:35 96 21 11/08/24 08:00 0 Laboratory Tests 11/08/24 04:33 Medications Current Medications Vancomycin HCl 1 gm ONCE ONCE IV; Start 11/06/24 at 12:00; Stop 11/06/24 at 12:01; Status DC Levofloxacin 750 mg ONCE ONCE PO; Start 11/06/24 at 12:00; Stop 11/06/24 at 12:01; Status DC Morphine Sulfate 4 mg ONCE ONCE IVP Last administered on 11/06/24at 13:48; Start 11/06/24 at 12:00; Stop 11/06/24 at 12:01; Status DC Levofloxacin/ Dextrose 500 mg Q48H IV Last administered on 11/06/24at 15:46; Start 11/06/24 at 16:00; Stop 11/27/24 at 15:59 Vancomycin HCl 1 gm ONCE ONCE IV Last administered on 11/06/24at 13:48; Start 11/06/24 at 13:00; Stop 11/06/24 at 13:11; Status DC Vancomycin HCl 250 ml @ 166.667 mls/hr QTUSA IV; Start 11/07/24 at 09:00; Stop 11/06/24 at 13:22; Status DC Vancomycin HCl 1 each AD IV; Start 11/06/24 at 13:30; Stop 11/20/24 at 13:29 Vancomycin HCl 250 ml @ 166.667 mls/hr QTUTHSA[DIALYSIS] IV Last administered on 11/07/24at 17:46; Start 11/07/24 at 16:00; Stop 11/28/24 at 15:59 Famotidine 20 mg QTUTHSA@2100 PO Last administered on 11/06/24at 21:10; Start 11/06/24 at 21:00; Stop 12/06/24 at 20:59 Enoxaparin Sodium 30 mg DAILY SQ Last administered on 11/08/24at 08:42; Start 11/07/24 at 09:00; Stop 12/07/24 at 08:59 Acetaminophen/ Hydrocodone Bitart 1 tab Q4H PRN PO; Start 11/06/24 at 13:30; Stop 11/07/24 at 01:21; Status DC Acetaminophen/ Hydrocodone Bitart 2 tab Q4H PRN PO Last administered on 11/06/24at 22:09; Start 11/06/24 at 13:30; Stop 11/07/24 at 01:21; Status DC Insulin Glargine 10 units HS SQ Last administered on 11/06/24at 21:15; Start 11/06/24 at 21:00; Stop 11/07/24 at 11:22; Status DC Insulin Human Regular INSULIN SLIDING SCAL... ACHS SQ Last administered on 11/06/24at 21:15; Start 11/06/24 at 16:30; Stop 12/06/24 at 16:29 Atorvastatin Calcium 40 mg HS PO Last administered on 11/06/24at 21:10; Start 11/06/24 at 21:00; Stop 12/06/24 at 20:59 Nifedipine 60 mg Q24H PO Last administered on 11/06/24at 15:48; Start 11/06/24 at 14:30; Stop 12/06/24 at 14:29 Dextrose 50 ml AD PRN IV; Start 11/06/24 at 14:30; Stop 12/06/24 at 14:29 Glucagon 1 mg AD PRN IM; Start 11/06/24 at 14:30; Stop 12/06/24 at 14:29 Morphine Sulfate 2 mg Q4H PRN IVP Last administered on 11/07/24at 02:34; Start 11/07/24 at 01:30; Stop 11/07/24 at 08:00; Status DC Tramadol HCl 50 mg Q6H PRN PO; Start 11/07/24 at 01:30; Stop 11/07/24 at 18:09; Status DC Hydromorphone HCl 1 mg Q4H PRN IVP Last administered on 11/08/24at 14:20; Start 11/07/24 at 08:00; Stop 11/12/24 at 07:59 Pharmacy Profile Note 1 each AD MISC; Start 11/07/24 at 11:30; Stop 11/07/24 at 11:35; Status DC Hydromorphone HCl 1.5 mg ONCE ONCE IVP Last administered on 11/07/24at 12:01; Start 11/07/24 at 11:30; Stop 11/07/24 at 11:37; Status DC Acetaminophen/ Hydrocodone Bitart 2 tab Q8H PO; Start 11/07/24 at 13:00; Stop 11/07/24 at 13:45; Status DC Acetaminophen/ Hydrocodone Bitart 2 tab Q8H PRN PO; Start 11/07/24 at 14:00; Stop 11/07/24 at 13:57; Status DC Leptospermum Honey 1 APPL DAILY16 TP Last administered on 11/07/24at 17:46; Start 11/07/24 at 16:00; Stop 12/07/24 at 15:59 Acetaminophen/ Hydrocodone Bitart 2 tab Q8H PRN PO; Start 11/07/24 at 18:30; Stop 11/12/24 at 18:29 Ondansetron HCl 4 mg Q6H PRN IVP; Start 11/07/24 at 19:30; Stop 12/07/24 at 19:29 Ropivacaine 150 mg STK-MED ONCE .ROUTE; Start 11/07/24 at 20:54; Stop 11/07/24 at 20:54; Status DC Ondansetron HCl 4 mg STK-MED ONCE .ROUTE; Start 11/07/24 at 21:04; Stop 11/07/24 at 21:04; Status DC Fentanyl Citrate 100 mcg STK-MED ONCE .ROUTE; Start 11/07/24 at 21:04; Stop 11/07/24 at 21:04; Status DC Sodium Chloride 1,000 ml @ 0 mls/hr ONCE IV Last administered on 11/08/24at 15:26; Start 11/08/24 at 15:00; Stop 12/08/24 at 14:59 Heparin Sodium (Porcine) 10,000 unit AD IRRIG; Start 11/08/24 at 15:00; Stop 12/08/24 at 14:59 SILVERIO BOWEN Jr. Nov 08, 2024 16:43
--- NOTE | 2024-11-08 17:14 | PN ---
[facility] PROGRESS NOTE Date of Service: Nov 08, 2024 Time of Service: 16:51 SUBJECTIVE: 11/07/24: Patient evaluated at bedside with family present. Patient was in pain in his left leg. Patient was given 1 mg of Dilaudid 30 minutes before but he wa s still in pain. Given the patient's persistent high pain score, with ESRD and stable clinical status (alert, oriented, respiratory rate and O2 saturation within normal limits) an increased dose of 1.5 mg IV hydromorphone was ordered for more effective pain control. We will monitor for efficacy and signs of over- sedation. Patient stable with temperature at 98.1 pulse 103, respiratory rate 21, blood pressure 133/88 and the pulse ox of 95 on room air. His labs today showed his WBC dropping to 17.5 from 21.9 yesterday, his hemoglobin also dropped to 8.5 from 9.0. Patient's creatinine was at 7.2 and BUN at 91 he is due for dialysis today. The bottom saw operator Dr. Jackson saw him today in the morning and assess that he has wet gangrene to the left forefoot and a necrotic left heel ulcer, he also has nonoperable peripheral vascular disease and has ischemic rest pain. He also mentioned that the patient is a candidate for a [id number] amputation. He may Brittni reviewed by Dr. Jordan, who is the surgeon. From surgical standpoint they ordered CTA of the abdomen aorta with runoff to access for any vascular abnormalities and if any cardiovascular interventions needed before surgical intervention. Patient is likely to be scheduled for left BKA by Dr. Jordan. Patient was made aware of the plan and he agrees. 11/08/24: Patient evaluated bedside without his family present. Patient was still in pain in his left leg after being given 1.5 mg Dilaudid. Patient refused dialysis yesterday because of his pain so today his creatinine increased to 8.1 from 7.2 yesterday his BUN increased to 96 from 91 yesterday. Spoke to the patient regarding this and he agreed to have his dialysis performed today, hopefully his labs will improve after dialysis. His WBC did decrease to 15.8 from 17.5 yesterday. Patient had a popliteal nerve block for pain management perform yesterday night by the anesthesiologist he still says that the pain is only 30% resolved. Dr. Vizcaino the Infectious Disease specialist saw the patient today and recommended to continue vancomycin and levofloxacin. He is also scheduled for CTA of the abdomen aorta with runoff to access for any vascular abnormalities and if any cardiovascular interventions needed before surgical intervention. His surgery has been scheduled for tomorrow. REVIEW OF SYSTEMS CONSTITUTIONAL: Denies fevers, chills, or night sweats. No unintentional weight loss reported. Pain in left lower leg NEUROLOGICAL: Denies headache, amaurosis fugax, motor weakness, sensory deficit, vertigo/spinning sensation, gait abnormalities, or tremors. ENT: No hearing loss, otalgia, otorrhea, rhinitis, rhinorrhea, hoarseness, or sore throat. CARDIOVASCULAR: Denies any exertional angina, dyspnea on exertion, orthopnea, paroxysmal nocturnal dyspnea, palpitations, life-threatening arrhythmias, claudication. PULMONARY: Denies any shortness of breath, cough, phlegm/sputum, hemoptysis, pleuritic chest pain. GASTROINTESTINAL: Denies any type of dysphagia to either liquids or solids. Denies nausea, vomiting, pyrosis, early satiety, abdominal pain, diarrhea, constipation, or changes in stool consistency or caliber. GENITOURINARY: Denies frequency, urgency, nocturia, hematuria or incontinence ENDOCRINOLOGIC: Denies polyuria, polydipsia, polyphagia or heat/cold intolerances. HEMATOLOGIC: Denies thrombophilia/previous clots, or coagulopathy/bleeding disorders. DERMATOLOGIC: Denies rashes or pruritus. PSYCHIATRIC: Denies any suicidal or homicidal ideation. Denies hallucinations. PHYSICAL EXAM GENERAL APPEARANCE: The patient is awake, alert, and oriented, in no acute cardiopulmonary distress. NEUROLOGICAL: Motor is 5/5 in bilateral upper and lower extremities proximal to distal. No sensory deficits. HEENT: Face is symmetric. Pupils are equal and reactive. Extraocular movements are intact. NECK: Supple. No JVD. No thyromegaly. No submental, submandibular, pre-/po stauricular, occipital or supraclavicular lymphadenopathy. CHEST: Normal chest expansion. No Telemetry. LUNGS: Absence of any rales, rhonchi or any wheezing. CARDIOVASCULAR: Regular. S1 and S2 normal. No appreciable rubs, murmurs or gallops. ABDOMEN: Soft, nontender, and nondistended. There is no rebound, voluntary guarding, or rigidity. : Deferred. No Hutson. EXTREMITIES: Gangrene to left foot, skin avulsion to the heel and plantar aspect. Swelling of left foot with tenderness proximally and decreased sensation distally. Pulses equal, no cyanosis. BKA of RLE SKIN: No skin breakdown. Vital Signs (last 8hr) Date Time Temp Pulse Resp B/P (MAP) Pulse Ox O2 Delivery O2 Flow Rate FiO2 11/08/24 14:45 99.1 97 15 122/60 Room Air 11/08/24 11:35 98.4 98 16 130/62 96 Room Air 21 LABS: Laboratory: Test 11/08/24 15:54 11/08/24 04:33 11/07/24 04:31 Range/Units Whole Blood Glucose 83 70-110 MG/DL Bedside Glucose Comment Notified Nurse White Blood Count 15.8 H 4.8-10.8 K/uL Red Blood Count 2.75 L 4.50-6.20 MIL/uL Hemoglobin 8.3 L 14.0-18.0 g/dL Hematocrit 25.9 L 42-54 % Mean Corpuscular Volume 94.2 79-99 fL Mean Corpuscular Hemoglobin 30.2 27.0-33.0 pg Mean Corpuscular Hemoglobin Concent 32.0 32.0-36.0 g/dL Red Cell Distribution Width 15.6 H 11.0-15.5 % Platelet Count 212 130-400 K/uL Mean Platelet Volume 11.5 H 7.5-10.5 fL Immature Granulocyte % (Auto) 0.6 0-1 % Neutrophils (%) (Auto) 76.3 40.0-77.0 % Lymphocytes (%) (Auto) 14.0 L 21.0-51.0 % Monocytes (%) (Auto) 7.8 3.0-13.0 % Eosinophils (%) (Auto) 1.1 0.0-8.0 % Basophils (%) (Auto) 0.2 0.0-5.0 % Neutrophils # (Auto) 12.1 H 1.8-7.7 K/uL Lymphocytes # (Auto) 2.2 1.0-4.8 K/uL Monocytes # (Auto) 1.2 H 0.1-1.0 K/uL Eosinophils # (Auto) 0.18 0.00-0.70 K/uL Basophils # (Auto) 0.03 0.00-0.20 K/uL Absolute Immature Granulocyte (auto 0.10 0-1 K/uL Nucleated Red Blood Cells 0.0 0.0-0.19 % Sodium Level 141 136-145 mmol/L Potassium Level 5.3 H 3.5-5.1 mmol/L Chloride Level 105 101-111 mmol/L Carbon Dioxide Level 25 21-32 mmol/L Blood Urea Nitrogen 96 *H 7-18 mg/dL Creatinine 8.1 *H 0.5-1.3 mg/dL Glomerular Filtration Rate Calc 7 >90 mL/min Random Glucose 95 70-105 mg/dL Total Calcium 7.5 L 8.5-10.1 mg/dL Iron Level 31 #L 65-175 mcg/dL Total Iron Binding Capacity 130 L 250-450 mcg/dL Percent Iron Saturation 23.8 L 30-44 % Total Bilirubin 0.7 0.2-1.0 mg/dL Aspartate Amino Transf (AST/SGOT) 18 10-37 U/L Alanine Aminotransferase (ALT/SGPT) 7 L 12-78 U/L Alkaline Phosphatase 111 50-136 U/L Total Protein 5.9 L 6.0-8.3 g/dL Albumin 1.8 L 3.5-5.0 g/dL Erythrocyte Sedimentation Rate 30 H 0-20 MM/HR Current Medications Medications (Trade) Dose Ordered Sig/Idania Route PRN Reason Start Time Stop Time Status Last Admin Dose Admin Acetaminophen/ Hydrocodone Bitart (NORco 5/325MG) 1 tab Q4H PRN PO MODERATE PAIN (4-6) 11/06/24 13:30 11/07/24 01:21 DC Acetaminophen/ Hydrocodone Bitart (NORco 5/325MG) 2 tab Q4H PRN PO SEVERE PAIN (7-10) 11/06/24 13:30 11/07/24 01:21 DC 11/06/24 22:09 2 TAB Acetaminophen/ Hydrocodone Bitart (NORco 5/325MG) 2 tab Q8H PO 11/07/24 13:00 11/07/24 13:45 DC Acetaminophen/ Hydrocodone Bitart (NORco 5/325MG) 2 tab Q8H PRN PO PAIN LEVEL 7 TO 10 11/07/24 14:00 11/07/24 13:57 DC Acetaminophen/ Hydrocodone Bitart (NORco 5/325MG) 2 tab Q8H PRN PO MODERATE PAIN (4-6) 11/07/24 18:30 11/12/24 18:29 Atorvastatin Calcium (LIPItor 40MG) 40 mg HS PO 11/06/24 21:00 12/06/24 20:59 11/06/24 21:10 40 MG Dextrose (D50w) 50 ml AD PRN IV HYPOGLYCEMIA PROTOCOL 11/06/24 14:30 12/06/24 14:29 Enoxaparin Sodium (Lovenox) 30 mg DAILY SQ 11/07/24 09:00 12/07/24 08:59 11/08/24 08:42 30 MG Famotidine (Pepcid 20mg Tab) 20 mg QTUTHSA@2100 PO 11/06/24 21:00 12/06/24 20:59 11/06/24 21:10 20 MG Glucagon (Glucagon 1mg Kit) 1 mg AD PRN IM HYPOGLYCEMIA PROTOCOL 11/06/24 14:30 12/06/24 14:29 Heparin Sodium (Porcine) (HEParin 5,000 UNIT VIAL) 10,000 unit AD IRRIG 11/08/24 15:00 12/08/24 14:59 Hydromorphone HCl (DiLAUDid 1MG INJ) 1 mg Q4H PRN IVP SEVERE PAIN (7-10) 11/07/24 08:00 11/12/24 07:59 11/08/24 14:20 1 MG Insulin Glargine (LANtus 100 UNITS/ML 10 ML VIAL) 10 units HS SQ 11/06/24 21:00 11/07/24 11:22 DC 11/06/24 21:15 10 UNITS Insulin Human Regular (humuLIN R 100 UNIT/ML 3ML) INSULIN SLIDING SCAL... ACHS SQ 11/06/24 16:30 12/06/24 16:29 11/06/24 21:15 3 UNIT Le[facility]ospermum [facility] ([facility]) 1 APPL DAILY16 TP 11/07/24 16:00 12/07/24 15:59 11/07/24 17:46 1 APPL Levofloxacin/ Dextrose (LEvaquIN 500 MG/ D5W 100 ML) 500 mg Q48H IV 11/06/24 16:00 11/27/24 15:59 11/06/24 15:46 500 MG Morphine Sulfate (morPHINE 2MG SYG) 2 mg Q4H PRN IVP SEVERE PAIN (7-10) 11/07/24 01:30 11/07/24 08:00 DC 11/07/24 02:34 2 MG Nifedipine (adALAT 30MG) 60 mg Q24H PO 11/06/24 14:30 12/06/24 14:29 11/06/24 15:48 60 MG Ondansetron HCl (zoFRAN 4MG INJ) 4 mg Q6H PRN IVP NAUSEA/VOMITING 11/07/24 19:30 12/07/24 19:29 Pharmacy Profile Note (Lace Assessment) 1 each AD MISC 11/07/24 11:30 11/07/24 11:35 DC Sodium Chloride 1,000 ml @ 0 mls/hr ONCE IV 11/08/24 15:00 12/08/24 14:59 11/08/24 15:26 100 MLS/HR Tramadol HCl (UltRAM) 50 mg Q6H PRN PO MODERATE PAIN (4-6) 11/07/24 01:30 11/07/24 18:09 DC Vancomycin HCl 250 ml @ 166.667 mls/hr QTUSA IV 11/07/24 09:00 11/06/24 13:22 DC Vancomycin HCl 250 ml @ 166.667 mls/hr QTUTHSA[DIALYSIS] IV 11/07/24 16:00 11/28/24 15:59 11/07/24 17:46 166.667 MLS/HR Vancomycin HCl (Vancomycin Protocol) 1 each AD IV 11/06/24 13:30 11/20/24 13:29 DIAGNOSTICS / RADIOLOGY: [ ] ASSESSMENT: Sepsis POA Leukocytosis WBC 21.9 POA Left foot gangrene Possible osteomyelitis of left foot ESRD on dialysis T, Th, S POA Uncontrolled DM II Chronic anemia with anemia of renal disease POA History of chronic corticosteroid use as outpatient with the prednisolone POA Psoriatic POA Uncontrolled hypertension POA PAD POA Recent history of hospitalization [facility] for infected right BKA stump with osteomyelitis on IV antibiotics outpatient Recent Cultures wound positive for MRSA and MDRO E coli Recent history of right BKA site debridement 07/21/2024 followed by delayed primary closure on 07/24/[address] Montes PLAN: Sepsis POA * patient improving today with the antibiotics he has been receiving * Continue patient on vancomycin and levofloxacin due to penicillin and sulfa allergy * Infectious diseases saw him today and recommended he continue the antibiotics he is already on * Due to ESRD no fluids were initiated Left foot gangrene * The surgeon scheduled the left BKA for * Continue with the Levaquin IV and IV vancomycin * Continue patient on Dilaudid * Patient underwent a popliteal nerve block for pain management ESRD on dialysis , , POA * Patient refused dialysis yesterday because of his pain so today his creatinine increased to 8.1 from 7.2 yesterday his BUN increased to 96 from 91 yesterday. * Spoke to the patient regarding this and he agreed to have his dialysis performed today * Patient is scheduled for dialysis today afternoon ATTESTATION BY PHYSICIAN I have seen and examined the patient. I reviewed the documentation, medical decision making, and treatment plan as noted by the resident provider above. I agree with the findings and plan of care. Elan Riley MD, ABHINAV MD Nov 08, 2024 17:14
[2024-11-09] VITALS (21 sets, daily range): BP systolic 100–149; BP diastolic 45–80; PULSE 65–105; RESP 16–20; TEMP 97.9–99.3; O2SAT 97–99
[2024-11-09 05:44] LABS: IMMATURE GRANULOCYTE ABSOLUTE 0.10 K/uL (0-1); NUCLEATED RED BLOOD CELLS 0.0 % (0.0-0.19); PLATELET COUNT (AUTO) 198 K/uL (130-400); RED BLOOD CELL COUNT(AUTO) 2.73 MIL/uL (4.50-6.20); RED CELL DISTRIBUTION WIDTH 15.5 % (11.0-15.5); WHITE BLOOD COUNT (AUTO) 16.0 K/uL (4.8-10.8)
[2024-11-09 06:04] LABS: ASPARTATE AMINOTRANSFERASE 12 U/L (10-37); CREATININE 6.3 mg/dL (0.5-1.3); GLOMERULAR FILTR. RATE CALC 9 mL/min (>90); GLUCOSE,RANDOM 76 mg/dL (70-105); PHOSPHORUS 5.8 mg/dL (2.5-4.9); SODIUM SERUM 137 mmol/L (136-145); TOTAL PROTEIN, SERUM 5.9 g/dL (6.0-8.3); UREA NITROGEN, BLOOD 56 mg/dL (7-18)
--- NOTE | 2024-11-09 07:18 | PN ---
SUBJECTIVE: The patient is a very pleasant 59-year-old diabetic, [place] male who is tentatively scheduled for a [id number] amputation today by the General Surgery Service. The patient is currently afebrile and his white count is within normal limits. T-max 99.0, pulse 100, respirations 18, blood pressure 149/80. White count 16.0, H and H 8.8 and 26, platelets 198, neutrophils 79.1. The patient is currently receiving vancomycin and Levaquin. OBJECTIVE: The patient's examination today shows wet gangrene to the left forefoot, necrotic left heel. He has ischemic rest pain. ASSESSMENT: The patient is being evaluated for a [id number] amputation on the left due to his ischemic rest pain. PLAN: Evaluation for a [id number] amputation on the left, tentatively scheduled by the Surgery Service. Continue with IV antibiotics and pain management. TID: [id number] RECEIPT: [id number]
[2024-11-09] MEDS ORDERED: IOHEXOL-350 75 ML VIAL IV ONE ×2 (12:23→12:24)
[2024-11-09 13:33] LABS: HEPATITIS B CORE AB TOTAL Non-Reactive (Nonreactive); HEPATITIS B SURFACE ANTIBODY Negative (Reactive)
--- NOTE | 2024-11-09 14:10 | PN ---
[facility] PROGRESS NOTE Date of Service: Nov 09, 2024 Time of Service: 13:55 SUBJECTIVE: 11/07/24: Patient evaluated at bedside with family present. Patient was in pain in his left leg. Patient was given 1 mg of Dilaudid 30 minutes before but he wa s still in pain. Given the patient's persistent high pain score, with ESRD and stable clinical status (alert, oriented, respiratory rate and O2 saturation within normal limits) an increased dose of 1.5 mg IV hydromorphone was ordered for more effective pain control. We will monitor for efficacy and signs of over- sedation. Patient stable with temperature at 98.1 pulse 103, respiratory rate 21, blood pressure 133/88 and the pulse ox of 95 on room air. His labs today showed his WBC dropping to 17.5 from 21.9 yesterday, his hemoglobin also dropped to 8.5 from 9.0. Patient's creatinine was at 7.2 and BUN at 91 he is due for dialysis today. The director epidemiology Dr. Jackson saw him today in the morning and assess that he has wet gangrene to the left forefoot and a necrotic left heel ulcer, he also has nonoperable peripheral vascular disease and has ischemic rest pain. He also mentioned that the patient is a candidate for a [id number] amputation. He may Brittni reviewed by Dr. Jordan, who is the surgeon. From surgical standpoint they ordered CTA of the abdomen aorta with runoff to access for any vascular abnormalities and if any cardiovascular interventions needed before surgical intervention. Patient is likely to be scheduled for left BKA by Dr. Jordan. Patient was made aware of the plan and he agrees. 11/08/24: Patient evaluated bedside without his family present. Patient was still in pain in his left leg after being given 1.5 mg Dilaudid. Patient refused dialysis yesterday because of his pain so today his creatinine increased to 8.1 from 7.2 yesterday his BUN increased to 96 from 91 yesterday. Spoke to the patient regarding this and he agreed to have his dialysis performed today, hopefully his labs will improve after dialysis. His WBC did decrease to 15.8 from 17.5 yesterday. Patient had a popliteal nerve block for pain management perform yesterday night by the anesthesiologist he still says that the pain is only 30% resolved. Dr. Vizcaino the Infectious Disease specialist saw the patient today and recommended to continue vancomycin and levofloxacin. He is also scheduled for CTA of the abdomen aorta with runoff to access for any vascular abnormalities and if any cardiovascular interventions needed before surgical intervention. His surgery has been scheduled for tomorrow. 11/09/24: Patient evaluated at bedside with his present. Patient is stable but still in pain. He also had episodes of vomiting even on Zofran. Will consult GI after the patients BKA. The BKA has been scheduled for tomorrow. Patient underwent CTA Chest today as preop, still waiting on the report. Patient has also been started on Zofran 40 mg IV. Continuing patients antibiotics of vancomycin and levofloxacin. Patients labs have improved since he got dialysed yesterday. His Creatine has improved from 8.1 to 6.3 and his Bun has gone down to 56 from 96. REVIEW OF SYSTEMS CONSTITUTIONAL: Denies fevers, chills, or night sweats. No unintentional weight loss reported. Pain in left lower leg NEUROLOGICAL: Denies headache, amaurosis fugax, motor weakness, sensory deficit, vertigo/spinning sensation, gait abnormalities, or tremors. ENT: No hearing loss, otalgia, otorrhea, rhinitis, rhinorrhea, hoarseness, or sore throat. CARDIOVASCULAR: Denies any exertional angina, dyspnea on exertion, orthopnea, paroxysmal nocturnal dyspnea, palpitations, life-threatening arrhythmias, claudication. PULMONARY: Denies any shortness of breath, cough, phlegm/sputum, hemoptysis, pleuritic chest pain. GASTROINTESTINAL: Denies any type of dysphagia to either liquids or solids. Denies nausea, vomiting, pyrosis, early satiety, abdominal pain, diarrhea, constipation, or changes in stool consistency or caliber. GENITOURINARY: Denies frequency, urgency, nocturia, hematuria or incontinence ENDOCRINOLOGIC: Denies polyuria, polydipsia, polyphagia or heat/cold intolerances. HEMATOLOGIC: Denies thrombophilia/previous clots, or coagulopathy/bleeding disorders. DERMATOLOGIC: Denies rashes or pruritus. PSYCHIATRIC: Denies any suicidal or homicidal ideation. Denies hallucinations. PHYSICAL EXAM GENERAL APPEARANCE: The patient is awake, alert, and oriented, in no acute cardiopulmonary distress. NEUROLOGICAL: Motor is 5/5 in bilateral upper and lower extremities proximal to distal. No sensory deficits. HEENT: Face is symmetric. Pupils are equal and reactive. Extraocular movements are intact. NECK: Supple. No JVD. No thyromegaly. No submental, submandibular, pre- /postauricular, occipital or supraclavicular lymphadenopathy. CHEST: Normal chest expansion. No Telemetry. LUNGS: Absence of any rales, rhonchi or any wheezing. CARDIOVASCULAR: Regular. S1 and S2 normal. No appreciable rubs, murmurs or gallops. ABDOMEN: Soft, nontender, and nondistended. There is no rebound, voluntary guarding, or rigidity. : Deferred. No Hutson. EXTREMITIES: Gangrene to left foot, skin avulsion to the heel and plantar aspect. Swelling of left foot with tenderness proximally and decreased sensation distally. Pulses equal, no cyanosis. BKA of RLE SKIN: No skin breakdown. Vital Signs (last 8hr) Date Time Temp Pulse Resp B/P (MAP) Pulse Ox O2 Delivery O2 Flow Rate FiO2 11/09/24 12:00 98.4 90 16 128/67 94 Room Air 21 11/09/24 09:08 97 Room Air* 0 21 11/09/24 08:18 98.2 97 18 140/64 97 Room Air LABS: Laboratory: Test 11/09/24 10:58 11/09/24 05:34 11/08/24 15:35 11/08/24 04:33 Range/Units Whole Blood Glucose 107 # 70-110 MG/DL Bedside Glucose Comment Notified Nurse White Blood Count 16.0 H 4.8-10.8 K/uL Red Blood Count 2.73 L 4.50-6.20 MIL/uL Hemoglobin 8.3 L 14.0-18.0 g/dL Hematocrit 26.0 L 42-54 % Mean Corpuscular Volume 95.2 79-99 fL Mean Corpuscular Hemoglobin 30.4 27.0-33.0 pg Mean Corpuscular Hemoglobin Concent 31.9 L 32.0-36.0 g/dL Red Cell Distribution Width 15.5 11.0-15.5 % Platelet Count 198 130-400 K/uL Mean Platelet Volume 10.8 H 7.5-10.5 fL Immature Granulocyte % (Auto) 0.6 0-1 % Neutrophils (%) (Auto) 79.1 H 40.0-77.0 % Lymphocytes (%) (Auto) 12.0 L 21.0-51.0 % Monocytes (%) (Auto) 6.0 3.0-13.0 % Eosinophils (%) (Auto) 1.9 0.0-8.0 % Basophils (%) (Auto) 0.4 0.0-5.0 % Neutrophils # (Auto) 12.7 H 1.8-7.7 K/uL Lymphocytes # (Auto) 1.9 1.0-4.8 K/uL Monocytes # (Auto) 1.0 0.1-1.0 K/uL Eosinophils # (Auto) 0.30 0.00-0.70 K/uL Basophils # (Auto) 0.06 0.00-0.20 K/uL Absolute Immature Granulocyte (auto 0.10 0-1 K/uL Nucleated Red Blood Cells 0.0 0.0-0.19 % Sodium Level 137 136-145 mmol/L Potassium Level 4.2 3.5-5.1 mmol/L Chloride Level 101 101-111 mmol/L Carbon Dioxide Level 28 21-32 mmol/L Blood Urea Nitrogen 56 H 7-18 mg/dL Creatinine 6.3 H 0.5-1.3 mg/dL Glomerular Filtration Rate Calc 9 >90 mL/min Random Glucose 76 70-105 mg/dL Total Calcium 7.9 L 8.5-10.1 mg/dL Phosphorus Level 5.8 H 2.5-4.9 mg/dL Magnesium Level 1.90 1.80-2.40 mg/dL Total Bilirubin 0.8 0.2-1.0 mg/dL Aspartate Amino Transf (AST/SGOT) 12 10-37 U/L Alanine Aminotransferase (ALT/SGPT) < 6 L 12-78 U/L Alkaline Phosphatase 124 50-136 U/L Total Protein 5.9 L 6.0-8.3 g/dL Albumin 1.8 L 3.5-5.0 g/dL Hepatitis B Surface Antigen. Non-Reactive Nonreactive Hepatitis B Surface Antibody. Negative L Reactive Hepatitis B Core Total Antibody. Non-Reactive Nonreactive Hepatitis C Antibody Non-Reactive Nonreactive Iron Level 31 #L 65-175 mcg/dL Total Iron Binding Capacity 130 L 250-450 mcg/dL Percent Iron Saturation 23.8 L 30-44 % Current Medications Medications (Trade) Dose Ordered Sig/Idania Route PRN Reason Start Time Stop Time Status Last Admin Dose Admin Acetaminophen/ Hydrocodone Bitart (NORco 5/325MG) 1 tab Q4H PRN PO MODERATE PAIN (4-6) 11/06/24 13:30 11/07/24 01:21 DC Acetaminophen/ Hydrocodone Bitart (NORco 5/325MG) 2 tab Q4H PRN PO SEVERE PAIN (7-10) 11/06/24 13:30 11/07/24 01:21 DC 11/06/24 22:09 2 TAB Acetaminophen/ Hydrocodone Bitart (NORco 5/325MG) 2 tab Q8H PO 11/07/24 13:00 11/07/24 13:45 DC Acetaminophen/ Hydrocodone Bitart (NORco 5/325MG) 2 tab Q8H PRN PO PAIN LEVEL 7 TO 10 11/07/24 14:00 11/07/24 13:57 DC Acetaminophen/ Hydrocodone Bitart (NORco 5/325MG) 2 tab Q8H PRN PO MODERATE PAIN (4-6) 11/07/24 18:30 11/12/24 18:29 Atorvastatin Calcium (LIPItor 40MG) 40 mg HS PO 11/06/24 21:00 12/06/24 20:59 11/06/24 21:10 40 MG Dextrose (D50w) 50 ml AD PRN IV HYPOGLYCEMIA PROTOCOL 11/06/24 14:30 12/06/24 14:29 Enoxaparin Sodium (Lovenox) 30 mg DAILY SQ 11/07/24 09:00 12/07/24 08:59 11/09/24 09:08 30 MG Famotidine (Pepcid 20mg Tab) 20 mg QTUTHSA@2100 PO 11/06/24 21:00 11/09/24 11:34 DC 11/06/24 21:10 20 MG Glucagon (Glucagon 1mg Kit) 1 mg AD PRN IM HYPOGLYCEMIA PROTOCOL 11/06/24 14:30 12/06/24 14:29 Heparin Sodium (Porcine) (HEParin 5,000 UNIT VIAL) 10,000 unit AD IRRIG 11/08/24 15:00 12/08/24 14:59 11/08/24 17:20 10,000 UNIT Hydromorphone HCl (DiLAUDid 1MG INJ) 1 mg Q4H PRN IVP SEVERE PAIN (7-10) 11/07/24 08:00 11/12/24 07:59 11/09/24 01:41 1 MG Insulin Glargine (LANtus 100 UNITS/ML 10 ML VIAL) 10 units HS SQ 11/06/24 21:00 11/07/24 11:22 DC 11/06/24 21:15 10 UNITS Insulin Human Regular (humuLIN R 100 UNIT/ML 3ML) INSULIN SLIDING SCAL... ACHS SQ 11/06/24 16:30 12/06/24 16:29 11/06/24 21:15 3 UNIT Leptospermum Honey ([employer]) 1 APPL DAILY16 TP 11/07/24 16:00 12/07/24 15:59 11/07/24 17:46 1 APPL Levofloxacin/ Dextrose (LEvaquIN 500 MG/ D5W 100 ML) 500 mg Q48H IV 11/06/24 16:00 11/27/24 15:59 11/06/24 15:46 500 MG Morphine Sulfate (morPHINE 2MG SYG) 2 mg Q4H PRN IVP SEVERE PAIN (7-10) 11/07/24 01:30 11/07/24 08:00 DC 11/07/24 02:34 2 MG Nifedipine (adALAT 30MG) 60 mg Q24H PO 11/06/24 14:30 12/06/24 14:29 11/06/24 15:48 60 MG Ondansetron HCl (zoFRAN 4MG INJ) 4 mg Q6H PRN IVP NAUSEA/VOMITING 11/07/24 19:30 12/07/24 19:29 11/09/24 11:33 4 MG Pantoprazole Sodium (PROTonix 40MG INJ) 40 mg DAILY IVP 11/10/24 09:00 12/10/24 08:59 Pantoprazole Sodium (PROTonix 40MG INJ) 40 mg DAILY IVP 11/10/24 09:00 12/10/24 08:59 UNV Pharmacy Profile Note (Lace Assessment) 1 each AD MISC 11/07/24 11:30 11/07/24 11:35 DC Sevelamer HCl (RENAgel 800 MG TAB) 400 mg TIDMEALS PO 11/09/24 12:00 12/09/24 11:59 Sodium Chloride 1,000 ml @ 0 mls/hr ONCE IV 11/08/24 15:00 12/08/24 14:59 11/08/24 15:26 100 MLS/HR Tramadol HCl (UltRAM) 50 mg Q6H PRN PO MODERATE PAIN (4-6) 11/07/24 01:30 11/07/24 18:09 DC Vancomycin HCl 250 ml @ 166.667 mls/hr QTUSA IV 11/07/24 09:00 11/06/24 13:22 DC Vancomycin HCl 250 ml @ 166.667 mls/hr QTUTHSA[DIALYSIS] IV 11/07/24 16:00 11/28/24 15:59 11/07/24 17:46 166.667 MLS/HR Vancomycin HCl (Vancomycin Protocol) 1 each AD IV 11/06/24 13:30 11/20/24 13:29 DIAGNOSTICS / RADIOLOGY: [ ] ASSESSMENT: Sepsis POA Leukocytosis WBC 21.9 POA Left foot gangrene Possible osteomyelitis of left foot ESRD on dialysis , , POA Uncontrolled DM II Chronic anemia with anemia of renal disease POA History of chronic corticosteroid use as outpatient with the prednisolone POA Psoriatic POA Uncontrolled hypertension POA PAD POA Recent history of hospitalization [facility] for infected right BKA stump with osteomyelitis on IV antibiotics outpatient Recent Cultures wound positive for MRSA and MDRO E coli Recent history of right BKA site debridement 07/21/2024 followed by delayed primary closure on 07/24/[address] Montes PLAN: Sepsis POA * patient improving today with the antibiotics he has been receiving * Continue patient on vancomycin and levofloxacin due to penicillin and sulfa allergy * Infectious diseases saw him today and recommended he continue the antibiotics he is already on * Due to ESRD no fluids were initiated Left foot gangrene * The surgeon scheduled the left BKA for Wednesday * Continue with the Levaquin IV and IV vancomycin * Continue patient on Dilaudid * Patient underwent a popliteal nerve block for pain management ESRD on dialysis , , POA * Patient refused dialysis yesterday because of his pain so today his creatinine increased to 8.1 from 7.2 yesterday his BUN increased to 96 from 91 yesterday. * Spoke to the patient regarding this and he agreed to have his dialysis performed today * Patient is scheduled for dialysis today afternoon ATTESTATION BY PHYSICIAN I have seen and examined the patient. I reviewed the documentation, medical decision making, and treatment plan as noted by the resident provider above. I agree with the findings and plan of care. Elan Riley MD, ABHINAV MD Nov 09, 2024 14:10
--- NOTE | 2024-11-09 15:09 | PN ---
This is a 63-year-old male with concerns of PVD to left lower extremity in need of BKA Interval history: This 59-year-old male seen in his room resting Patient's pain tolerable CTA performed currently pending results Cardiovascular consultation pending Physical exam General: Awake alert and oriented Heart: Regular rate and rhythm} Lungs: Clear to auscultation no distress Abdomen: [Soft, nontender, nondistended Left lower extremity discomfort with gangrene Assessment : This is a 63-year-old male with left lower extremity gangrene needed BKA Plan: At this point in time doctor Julian to see patient later today Await CTA findings Nursing to reach out to cardiovascular team for evaluation Doctor Julian Surgical team to follow patient closely Vitals/Labs Vital Signs Date Time Temp Pulse Resp B/P (MAP) Pulse Ox O2 Delivery O2 Flow Rate FiO2 11/09/24 12:00 98.4 90 16 128/67 94 Room Air 21 11/09/24 09:08 0 Laboratory Tests 11/09/24 05:34 Medications Current Medications Vancomycin HCl 1 gm ONCE ONCE IV; Start 11/06/24 at 12:00; Stop 11/06/24 at 12:01; Status DC Levofloxacin 750 mg ONCE ONCE PO; Start 11/06/24 at 12:00; Stop 11/06/24 at 12:01; Status DC Morphine Sulfate 4 mg ONCE ONCE IVP Last administered on 11/06/24at 13:48; Start 11/06/24 at 12:00; Stop 11/06/24 at 12:01; Status DC Levofloxacin/ Dextrose 500 mg Q48H IV Last administered on 11/06/24at 15:46; Start 11/06/24 at 16:00; Stop 11/27/24 at 15:59 Vancomycin HCl 1 gm ONCE ONCE IV Last administered on 11/06/24at 13:48; Start 11/06/24 at 13:00; Stop 11/06/24 at 13:11; Status DC Vancomycin HCl 250 ml @ 166.667 mls/hr QTUSA IV; Start 11/07/24 at 09:00; Stop 11/06/24 at 13:22; Status DC Vancomycin HCl 1 each AD IV; Start 11/06/24 at 13:30; Stop 11/20/24 at 13:29 Vancomycin HCl 250 ml @ 166.667 mls/hr QTUTHSA[DIALYSIS] IV Last administered on 11/07/24at 17:46; Start 11/07/24 at 16:00; Stop 11/28/24 at 15:59 Famotidine 20 mg QTUTHSA@2100 PO Last administered on 11/06/24at 21:10; Start 11/06/24 at 21:00; Stop 11/09/24 at 11:34; Status DC Enoxaparin Sodium 30 mg DAILY SQ Last administered on 11/09/24at 09:08; Start 11/07/24 at 09:00; Stop 12/07/24 at 08:59 Acetaminophen/ Hydrocodone Bitart 1 tab Q4H PRN PO; Start 11/06/24 at 13:30; Stop 11/07/24 at 01:21; Status DC Acetaminophen/ Hydrocodone Bitart 2 tab Q4H PRN PO Last administered on 11/06/24at 22:09; Start 11/06/24 at 13:30; Stop 11/07/24 at 01:21; Status DC Insulin Glargine 10 units HS SQ Last administered on 11/06/24at 21:15; Start 11/06/24 at 21:00; Stop 11/07/24 at 11:22; Status DC Insulin Human Regular INSULIN SLIDING SCAL... ACHS SQ Last administered on 11/06/24at 21:15; Start 11/06/24 at 16:30; Stop 12/06/24 at 16:29 Atorvastatin Calcium 40 mg HS PO Last administered on 11/06/24at 21:10; Start 11/06/24 at 21:00; Stop 12/06/24 at 20:59 Nifedipine 60 mg Q24H PO Last administered on 11/06/24at 15:48; Start 11/06/24 at 14:30; Stop 12/06/24 at 14:29 Dextrose 50 ml AD PRN IV; Start 11/06/24 at 14:30; Stop 12/06/24 at 14:29 Glucagon 1 mg AD PRN IM; Start 11/06/24 at 14:30; Stop 12/06/24 at 14:29 Morphine Sulfate 2 mg Q4H PRN IVP Last administered on 11/07/24at 02:34; Start 11/07/24 at 01:30; Stop 11/07/24 at 08:00; Status DC Tramadol HCl 50 mg Q6H PRN PO; Start 11/07/24 at 01:30; Stop 11/07/24 at 18:09; Status DC Hydromorphone HCl 1 mg Q4H PRN IVP Last administered on 11/09/24at 01:41; Start 11/07/24 at 08:00; Stop 11/12/24 at 07:59 Pharmacy Profile Note 1 each AD MISC; Start 11/07/24 at 11:30; Stop 11/07/24 at 11:35; Status DC Hydromorphone HCl 1.5 mg ONCE ONCE IVP Last administered on 11/07/24at 12:01; Start 11/07/24 at 11:30; Stop 11/07/24 at 11:37; Status DC Acetaminophen/ Hydrocodone Bitart 2 tab Q8H PO; Start 11/07/24 at 13:00; Stop 11/07/24 at 13:45; Status DC Acetaminophen/ Hydrocodone Bitart 2 tab Q8H PRN PO; Start 11/07/24 at 14:00; Stop 11/07/24 at 13:57; Status DC Leptospermum Honey 1 APPL DAILY16 TP Last administered on 11/07/24at 17:46; Start 11/07/24 at 16:00; Stop 12/07/24 at 15:59 Acetaminophen/ Hydrocodone Bitart 2 tab Q8H PRN PO; Start 11/07/24 at 18:30; Stop 11/12/24 at 18:29 Ondansetron HCl 4 mg Q6H PRN IVP Last administered on 11/09/24at 11:33; Start 11/07/24 at 19:30; Stop 12/07/24 at 19:29 Ropivacaine 150 mg STK-MED ONCE .ROUTE; Start 11/07/24 at 20:54; Stop 11/07/24 at 20:54; Status DC Ondansetron HCl 4 mg STK-MED ONCE .ROUTE; Start 11/07/24 at 21:04; Stop 11/07/24 at 21:04; Status DC Fentanyl Citrate 100 mcg STK-MED ONCE .ROUTE; Start 11/07/24 at 21:04; Stop 11/07/24 at 21:04; Status DC Sodium Chloride 1,000 ml @ 0 mls/hr ONCE IV Last administered on 11/08/24at 15:26; Start 11/08/24 at 15:00; Stop 12/08/24 at 14:59 Heparin Sodium (Porcine) 10,000 unit AD IRRIG Last administered on 11/08/24at 17:20; Start 11/08/24 at 15:00; Stop 12/08/24 at 14:59 Sevelamer HCl 400 mg TIDMEALS PO; Start 11/09/24 at 12:00; Stop 12/09/24 at 11:59 Pantoprazole Sodium 40 mg ONCE ONCE IVP Last administered on 11/09/24at 11:39; Start 11/09/24 at 12:00; Stop 11/09/24 at 12:01; Status DC Pantoprazole Sodium 40 mg DAILY IVP; Start 11/10/24 at 09:00; Stop 12/10/24 at 08:59 Diazepam 5 mg ONCE ONCE IVP Last administered on 11/09/24at 12:05; Start 11/09/24 at 12:00; Stop 11/09/24 at 12:01; Status DC Pantoprazole Sodium 40 mg DAILY IVP; Start 11/10/24 at 09:00; Stop 12/10/24 at 08:59; Status UNV Iohexol 75 ml STK-MED ONCE IV; Start 11/09/24 at 12:23; Stop 11/09/24 at 12:29; Status DC Iohexol 75 ml STK-MED ONCE IV; Start 11/09/24 at 12:24; Stop 11/09/24 at 12:29; Status DC SILVERIO BOWEN Jr. Nov 09, 2024 15:09
--- NOTE | 2024-11-09 16:05 | PN ---
PROGRESS NOTE Date of Service: Nov 09, 2024 Time of Service: 16:04 SUBJECTIVE: Patient is seen and examined bedside. CT completed. Pending results. Patient is scheduled for hemodialysis today patient agreed REVIEW OF SYSTEMS CONSTITUTIONAL: Denies fever, chills, or fatigue. HEAD/FACE: No signs of trauma. EENT: Denies eye pain, blurred vision, double vision, or light sensitivity. RESPIRATORY: Denies shortness of breath, cough, wheezing CARDIOVASCULAR: Denies chest pain, palpitation, syncope GASTROINTESTINAL/ABDOMINAL: Denies abdominal pain, constipation, diarrhea, nausea or vomiting GENITOURINARY: Denies dysuria or hematuria. MUSCULOSKELETAL: Denies joint pain, tenderness, or trauma. INTEGUMENTARY: Denies rash or itchiness NEUROLOGICAL/PSYCH: Denies anxiety, depression, heat or cold intolerance. PHYSICAL EXAM EYES: Anicteric. Pupils equal and reactive. HENT: No oral thrush seen, moist Oral mucosa NECK: Supple, no JVD or thyromegaly. LUNGS: Good air entry. No rales, no rhonchi. CARDIOVASCULAR: S1, S2 regular. No murmur heard. ABDOMEN: Soft, non tender, bowel sounds present, no organomegaly CENTRAL NERVOUS SYSTEM: Awake, alert, oriented x 3. No focal deficits. SKIN: No rashes, no swelling. LYMPHATICS: No peripheral lymphadenopathy MUSCULOSKELETAL: No joint swelling, erythema or tenderness. EXTREMITIES: No cyanosis or clubbing BACK: No deformity, no pressure ulcer. GENITOURINARY: No dysuria or hematuria Vital Signs (last 8hr) Date Time Temp Pulse Resp B/P (MAP) Pulse Ox O2 Delivery O2 Flow Rate FiO2 11/09/24 12:00 98.4 90 16 128/67 94 Room Air 21 11/09/24 09:08 97 Room Air* 0 21 11/09/24 08:18 98.2 97 18 140/64 97 Room Air LABS: Laboratory: Test 11/09/24 10:58 11/09/24 05:34 11/08/24 15:35 11/08/24 04:33 Range/Units Whole Blood Glucose 107 # 70-110 MG/DL Bedside Glucose Comment Notified Nurse White Blood Count 16.0 H 4.8-10.8 K/uL Red Blood Count 2.73 L 4.50-6.20 MIL/uL Hemoglobin 8.3 L 14.0-18.0 g/dL Hematocrit 26.0 L 42-54 % Mean Corpuscular Volume 95.2 79-99 fL Mean Corpuscular Hemoglobin 30.4 27.0-33.0 pg Mean Corpuscular Hemoglobin Concent 31.9 L 32.0-36.0 g/dL Red Cell Distribution Width 15.5 11.0-15.5 % Platelet Count 198 130-400 K/uL Mean Platelet Volume 10.8 H 7.5-10.5 fL Immature Granulocyte % (Auto) 0.6 0-1 % Neutrophils (%) (Auto) 79.1 H 40.0-77.0 % Lymphocytes (%) (Auto) 12.0 L 21.0-51.0 % Monocytes (%) (Auto) 6.0 3.0-13.0 % Eosinophils (%) (Auto) 1.9 0.0-8.0 % Basophils (%) (Auto) 0.4 0.0-5.0 % Neutrophils # (Auto) 12.7 H 1.8-7.7 K/uL Lymphocytes # (Auto) 1.9 1.0-4.8 K/uL Monocytes # (Auto) 1.0 0.1-1.0 K/uL Eosinophils # (Auto) 0.30 0.00-0.70 K/uL Basophils # (Auto) 0.06 0.00-0.20 K/uL Absolute Immature Granulocyte (auto 0.10 0-1 K/uL Nucleated Red Blood Cells 0.0 0.0-0.19 % Sodium Level 137 136-145 mmol/L Potassium Level 4.2 3.5-5.1 mmol/L Chloride Level 101 101-111 mmol/L Carbon Dioxide Level 28 21-32 mmol/L Blood Urea Nitrogen 56 H 7-18 mg/dL Creatinine 6.3 H 0.5-1.3 mg/dL Glomerular Filtration Rate Calc 9 >90 mL/min Random Glucose 76 70-105 mg/dL Total Calcium 7.9 L 8.5-10.1 mg/dL Phosphorus Level 5.8 H 2.5-4.9 mg/dL Magnesium Level 1.90 1.80-2.40 mg/dL Total Bilirubin 0.8 0.2-1.0 mg/dL Aspartate Amino Transf (AST/SGOT) 12 10-37 U/L Alanine Aminotransferase (ALT/SGPT) < 6 L 12-78 U/L Alkaline Phosphatase 124 50-136 U/L Total Protein 5.9 L 6.0-8.3 g/dL Albumin 1.8 L 3.5-5.0 g/dL Hepatitis B Surface Antigen. Non-Reactive Nonreactive Hepatitis B Surface Antibody. Negative L Reactive Hepatitis B Core Total Antibody. Non-Reactive Nonreactive Hepatitis C Antibody Non-Reactive Nonreactive Iron Level 31 #L 65-175 mcg/dL Total Iron Binding Capacity 130 L 250-450 mcg/dL Percent Iron Saturation 23.8 L 30-44 % DIAGNOSTICS / RADIOLOGY: EXAMINATION: SPECTRAL DOPPLER ULTRASOUND EXAMINATION OF THE LEFT LOWER EXTREMITY VEINS. CLINICAL HISTORY: To assess venous flow. COMPARISON: None provided. TECHNIQUE: Real-time ultrasound scan of the veins of the left lower extremity with color Doppler flow, spectral waveform analysis and compression. FINDINGS: DEEP VEINS: The common femoral, superficial femoral (proximal and distal), and popliteal veins are echolucent and compressible. There is normal color Doppler flow throughout. The visualized calf veins appear patent. There are echogenic strands in the mid superficial femoral vein, however flow is present and the vein is partially compressible. SUPERFICIAL VEINS: The greater saphenous veins are patent and compressible. SOFT TISSUES: No popliteal fossa cyst or other abnormalities. IMPRESSION: Linear echogenic strands in the left mid superficial femoral vein, reflecting chronic thrombosis with recanalization. No deep venous thrombosis evident in the remainder of the left lower extremity. No superficial thrombophlebitis in the left lower extremity. /[place] ASSESSMENT: End-stage renal disease. The patient is on home hemodialysis. Scheduled dialysis while in the hospital is on TTS. Diabetes mellitus type 2 with nephropathy. Hypertension and renal manifestation. Anemia and chronic kidney disease. Peripheral arterial disease. Diabetic foot infection. PLAN: Plan HD today Continue renal diet. Antimicrobials to be adjusted to end-stage renal disease level. Epogen for management of anemia. Other plans as per physician involved in the care of the patient. LALITHA KOCH AGLISBETH Nov 09, 2024 16:05
--- NOTE | 2024-11-09 16:07 | HMCIMG ---
Exam: CT angiogram runoff from a Dysplastic the joint emptying. Next. We'll have involutional flow within them with her. Indication: Preop. Technique: Continuous axial images were obtained from just above the aortic bifurcation to the level of the feet after the administration of intravenous contrast material, mL of Isovue-370. Coronal and sagittal reformatted images were obtained. TOTAL DLP: 2836.70 mGy-cm; automated exposure control was utilized. Comparison: Findings: CT abdomen and pelvis angiographic findings: The abdominal aorta is normal in caliber and opacification. There is diffuse atherosclerotic change of the abdominal aorta with calcified plaque. No aortic dissection or abdominal aortic aneurysm is demonstrated. The origin of the celiac artery is widely patent. The origin of the superior mesenteric artery is widely patent. The origin of the right main renal artery is widely patent. The origin of the left main renal artery is widely patent. The origin of the inferior mesenteric artery is patent. Right lower extremity angiographic findings: There is moderate to severe atherosclerotic changes with calcified plaque involving the common common femoral artery. The profunda femoris artery on the right is patent. The right superficial femoral artery has multiple focal areas of occlusion. The right popliteal artery has focal segment of occlusion with reconstitution of collateral. The right anterior tibial artery is occluded at the mid thigh region the right peroneal artery is occluded. The right posterior tibial artery midportion is a segment of occlusion with reconstitution of collaterals with the right posterior tibial artery seen to traverse the ankle. Left lower extremity angiographic findings: There is afas-nu-vyrytrvh atherosclerotic changes of the left common femoral artery. The left superficial femoral artery and profunda femoris artery appears to be treated with mild diffuse atherosclerotic changes. The left popliteal artery is patent opacification present at is origin is patent with below-knee amputation.. CT abdomen and pelvis findings: Visualized lower thorax: The visualized lung bases demonstrate dependent bibasilar atelectasis. Peritoneum: No pneumoperitoneum or ascites is identified. Liver: The liver is normal in size and attenuation. No discrete hepatic mass or intrahepatic biliary ductal dilatation is demonstrated. The hepatic veins and portal vein appear normal. Gallbladder: Gallbladder is surgically absent. Pancreas: Within normal limits. Spleen: Within normal limits. Adrenal Glands: Within normal limits. Kidneys: The kidneys are normal in size and attenuation. No hydronephrosis, calculus, or discrete solid renal mass is identified. Small and large intestine: The small and large intestine is normal in caliber and wall thickness. Uterus: Present Prostate gland: The prostate gland is normal in size. Urinary bladder: The urinary bladder is minimally distended with fluid. Retroperitoneum: No retroperitoneal lymphadenopathy is identified. Bones: Left below-knee amputation with post surgical changes. Impression: Diffuse atherosclerotic changes with multilevel focal occlusions segment of the right superficial femoral artery and right popliteal artery and the trifurcation vessels as described above. Left side there is a left below-knee amputation with mild diffuse atherosclerotic changes of the left common femoral artery. The popliteal artery.
--- NOTE | 2024-11-09 16:23 | NUR ---
P.M. DOSE OF NIFEDIPINE HELD PER REQUEST OF DIALYSIS NURSE. Addendum: 11/09/24 at 1624 by TSERING FULLER RN RN PATIENT IS TO BE DIALYZED TODAY
--- NOTE | 2024-11-09 17:07 | NUR ---
PATIENT IS CURRENTLY BEING DIALYZED AND STATES, "I'M NOT GOING TO EAT DINNER". WILL HOLD SEVELAMER PATIENT IS NOT EATING.
[2024-11-09] MEDS: LIDOCAINE 5% TOPICAL PATCH TP SCH (19:49)
--- NOTE | 2024-11-09 22:31 | PN ---
INFECTIOUS DISEASE PROGRESS NOTE Date of Service: Nov 09, 2024 SUBJECTIVE: Patient was seen and examined at bedside in room 318. Patient remains afebrile, temperature is 98.2. Still pending final wound culture results. Continues on vancomycin per pharmacy protocol and levofloxacin IV. Patient will be undergoing a CTA with runoff today. Patient's visiting at bedside. No reports of nausea or vomiting. We will continue to monitor patient. PHYSICAL EXAM EYES: Anicteric. Pupils equal and reactive. HENT: No oral thrush seen, moist Oral mucosa NECK: Supple, no JVD or thyromegaly. LUNGS: Good air entry. No rales, no rhonchi. CARDIOVASCULAR: S1, S2 regular. No murmur heard. ABDOMEN: Soft, non tender, bowel sounds present, no organomegaly CENTRAL NERVOUS SYSTEM: Awake, alert, oriented x 3. SKIN: No rashes, no swelling. Left foot diabetic ulcer with gangrene. LYMPHATICS: No peripheral lymphadenopathy MUSCULOSKELETAL: No joint swelling, erythema or tenderness. Right mcjef-cea-isjf amputation. EXTREMITIES: No cyanosis or clubbing BACK: No deformity, no pressure ulcer. GENITOURINARY: No dysuria or hematuria Vital Sign (Last 12 Hours) 11/09/24 11/09/24 11/09/24 11/09/24 12:00 16:00 16:20 16:45 Temp 98.4 98.6 99.3 99.3 Pulse 90 93 96 92 Resp 16 18 16 16 B/P (MAP) 128/67 116/63 130/63 137/65 Pulse Ox 94 98 O2 Delivery Room Air Room Air Room Air Room Air FiO2 21 11/09/24 11/09/24 11/09/24 11/09/24 17:15 17:30 17:45 18:00 Temp 99.0 99.0 Pulse 94 88 94 98 Resp 16 16 16 16 B/P (MAP) 126/58 134/58 137/68 127/63 O2 Delivery Room Air Room Air Room Air Room Air 11/09/24 11/09/24 11/09/24 11/09/24 18:15 18:30 18:45 19:00 Pulse 91 95 100 99 Resp 16 16 16 16 B/P (MAP) 115/48 100/45 101/59 117/74 O2 Delivery Room Air Room Air Room Air Room Air 11/09/24 11/09/2425 19:15 19:30 19:45 Temp 98.4 98.4 Pulse 96 98 99 Resp 16 16 16 B/P (MAP) 129/71 105/57 130/63 O2 Delivery Room Air Room Air Room Air Intake & Output (last 24hrs) 11/08/24 11/08/24 11/09/24 15:00 23:00 07:00 Intake Total 120 ml Output Total 1500 ml Balance -1500 ml 120 ml LABS: Laboratory: Test 11/09/24 19:11 11/09/24 10:58 11/09/24 05:34 11/08/24 15:35 Range/Units Whole Blood Glucose 84 70-110 MG/DL Bedside Glucose Comment Notified Nurse White Blood Count 16.0 H 4.8-10.8 K/uL Red Blood Count 2.73 L 4.50-6.20 MIL/uL Hemoglobin 8.3 L 14.0-18.0 g/dL Hematocrit 26.0 L 42-54 % Mean Corpuscular Volume 95.2 79-99 fL Mean Corpuscular Hemoglobin 30.4 27.0-33.0 pg Mean Corpuscular Hemoglobin Concent 31.9 L 32.0-36.0 g/dL Red Cell Distribution Width 15.5 11.0-15.5 % Platelet Count 198 130-400 K/uL Mean Platelet Volume 10.8 H 7.5-10.5 fL Immature Granulocyte % (Auto) 0.6 0-1 % Neutrophils (%) (Auto) 79.1 H 40.0-77.0 % Lymphocytes (%) (Auto) 12.0 L 21.0-51.0 % Monocytes (%) (Auto) 6.0 3.0-13.0 % Eosinophils (%) (Auto) 1.9 0.0-8.0 % Basophils (%) (Auto) 0.4 0.0-5.0 % Neutrophils # (Auto) 12.7 H 1.8-7.7 K/uL Lymphocytes # (Auto) 1.9 1.0-4.8 K/uL Monocytes # (Auto) 1.0 0.1-1.0 K/uL Eosinophils # (Auto) 0.30 0.00-0.70 K/uL Basophils # (Auto) 0.06 0.00-0.20 K/uL Absolute Immature Granulocyte (auto 0.10 0-1 K/uL Nucleated Red Blood Cells 0.0 0.0-0.19 % Sodium Level 137 136-145 mmol/L Potassium Level 4.2 3.5-5.1 mmol/L Chloride Level 101 101-111 mmol/L Carbon Dioxide Level 28 21-32 mmol/L Blood Urea Nitrogen 56 H 7-18 mg/dL Creatinine 6.3 H 0.5-1.3 mg/dL Glomerular Filtration Rate Calc 9 >90 mL/min Random Glucose 76 70-105 mg/dL Total Calcium 7.9 L 8.5-10.1 mg/dL Phosphorus Level 5.8 H 2.5-4.9 mg/dL Magnesium Level 1.90 1.80-2.40 mg/dL Total Bilirubin 0.8 0.2-1.0 mg/dL Aspartate Amino Transf (AST/SGOT) 12 10-37 U/L Alanine Aminotransferase (ALT/SGPT) < 6 L 12-78 U/L Alkaline Phosphatase 124 50-136 U/L Total Protein 5.9 L 6.0-8.3 g/dL Albumin 1.8 L 3.5-5.0 g/dL Hepatitis B Surface Antigen. Non-Reactive Nonreactive Hepatitis B Surface Antibody. Negative L Reactive Hepatitis B Core Total Antibody. 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 Sepsis. Leukocytosis. End-stage renal disease, on dialysis. Diabetes mellitus. Anemia with a history of blood transfusion. Psoriasis. Possible fracture of the third proximal phalanx base. PLAN: Continue vancomycin per pharmacy protocol. Continue levofloxacin. Continue dialysis as recommended by auto mechanic supervisor. Continue pain management. Continue wound care. General surgery has been consulted for possible AKA vs BKA. Scheduled for a CTA with runoff for today This case was reviewed and discussed with my supervising physician and the above assessment and plan was formulated and agreed upon. ATTESTATION BY PHYSICIAN I have seen and examined the patient. I reviewed the documentation, medical de cision making, and treatment plan as noted by the mid-level provider above. I agree with the findings and plan of care. ENEDELIA GUAMAN MD, [facility] Nov 09, 2024 22:31
[2024-11-10] VITALS (27 sets, daily range): BP systolic 104–163; BP diastolic 34–88; PULSE 84–101; RESP 15–18; TEMP 97.5–98.4; O2SAT 94–96
--- NOTE | 2024-11-10 07:37 | PN ---
SUBJECTIVE: The patient is a very pleasant 59-year-old diabetic, [place] male who is followed up for a diabetic ulcer heel, gangrene to all digits and gangrene to the forefoot on the left. The patient is scheduled for a uoczn-mhi-wahm amputation by Surgery Service today. He had a previous arteriogram in July by the Cardiology Service, found to have no occlusion of either the superficial femoral or the popliteal artery. He does not need any revascularization prior to his qhmgm-qwa-blym amputation on the left side. The patient is concerned of pain to the left foot. He is denying any constitutional symptoms. REVIEW OF SYSTEMS: CONSTITUTIONAL: No chills, no fevers, no night sweats. No nausea, vomiting, or diarrhea. Severe pain to the left foot. GENITOURINARY: End-stage renal disease, currently receiving hemodialysis. GASTROINTESTINAL: No dysphagia. ENDOCRINE: Diabetes. PSYCHIATRIC: Denied any depression. MUSCULOSKELETAL: Ckluu-iob-pevp amputation on the right. Gangrene and osteomyelitis on the left. OBJECTIVE: On examination today shows gangrene to the entire left forefoot, necrotic left heel, nonpalpable pedal pulses. No abscesses or ascending cellulitis. ASSESSMENT: The patient is being evaluated for xhdhs-tih-iuud amputation on the left due to ischemic rest pain and gangrene to the forefoot and the rear foot. The patient had no significant occlusion of the superficial femoral or the popliteal artery per arteriogram study in July. I reviewed the findings with the Surgery Service. PLAN: Plan is for General Surgery service to proceed with a vqwsx-oke-fajz amputation on the left today. We will continue to follow the patient closely while in-house. TID: [id number] RECEIPT: [id number]
[2024-11-10 08:46] LABS: IMMATURE GRANULOCYTE ABSOLUTE 0.11 K/uL (0-1); NUCLEATED RED BLOOD CELLS 0.0 % (0.0-0.19); PLATELET COUNT (AUTO) 167 K/uL (130-400); RED BLOOD CELL COUNT(AUTO) 2.65 MIL/uL (4.50-6.20); RED CELL DISTRIBUTION WIDTH 15.1 % (11.0-15.5); WHITE BLOOD COUNT (AUTO) 15.9 K/uL (4.8-10.8)
[2024-11-10 09:01] LABS: ASPARTATE AMINOTRANSFERASE 12 U/L (10-37); CREATININE 5.0 mg/dL (0.5-1.3); GLOMERULAR FILTR. RATE CALC 12 mL/min (>90); GLUCOSE,RANDOM 80 mg/dL (70-105); SODIUM SERUM 139 mmol/L (136-145); TOTAL PROTEIN, SERUM 5.8 g/dL (6.0-8.3); UREA NITROGEN, BLOOD 37 mg/dL (7-18)
--- NOTE | 2024-11-10 10:55 | NUR ---
LOVENOX LOVENOX HELD DUE TO UPCOMING LEFT BKA.
[2024-11-10] MEDS: DEXTROSE 50%-WATER 50 ML DISP.SYRIN IV PRN (13:43)
[2024-11-10] MEDS: DEXTROSE 50%-WATER 50 ML DISP.SYRIN IV ONE (13:44)
[2024-11-10] MEDS ORDERED: LIDOCAINE PF 100MG/5ML (2%) SYRINGE 5ML ONE (14:07)
[2024-11-10] MEDS ORDERED: MIDAZOLAM HCL 1 MG/ML 2ML VIAL ONE (14:07)
--- NOTE | 2024-11-10 14:15 | PN ---
PROGRESS NOTE Date of Service: Nov 10, 2024 Time of Service: 14:08 SUBJECTIVE: Patient is seen and examined bedside. Pending results. No new concerns. denies fever and chills. Last HS treatment was yesterday. Pending procedure today REVIEW OF SYSTEMS CONSTITUTIONAL: Denies fever, chills, or fatigue. HEAD/FACE: No signs of trauma. EENT: Denies eye pain, blurred vision, double vision, or light sensitivity. RESPIRATORY: Denies shortness of breath, cough, wheezing CARDIOVASCULAR: Denies chest pain, palpitation, syncope GASTROINTESTINAL/ABDOMINAL: Denies abdominal pain, constipation, diarrhea, nausea or vomiting GENITOURINARY: Denies dysuria or hematuria. MUSCULOSKELETAL: Denies joint pain, tenderness, or trauma. INTEGUMENTARY: Denies rash or itchiness NEUROLOGICAL/PSYCH: Denies anxiety, depression, heat or cold intolerance. PHYSICAL EXAM EYES: Anicteric. Pupils equal and reactive. HENT: No oral thrush seen, moist Oral mucosa NECK: Supple, no JVD or thyromegaly. LUNGS: Good air entry. No rales, no rhonchi. CARDIOVASCULAR: S1, S2 regular. No murmur heard. ABDOMEN: Soft, non tender, bowel sounds present, no organomegaly CENTRAL NERVOUS SYSTEM: Awake, alert, oriented x 3. No focal deficits. SKIN: No rashes, no swelling. LYMPHATICS: No peripheral lymphadenopathy MUSCULOSKELETAL: No joint swelling, erythema or tenderness. EXTREMITIES: No cyanosis or clubbing BACK: No deformity, no pressure ulcer. GENITOURINARY: No dysuria or hematuria Vital Signs (last 8hr) Date Time Temp Pulse Resp B/P (MAP) Pulse Ox O2 Delivery O2 Flow Rate FiO2 11/10/24 12:00 97.9 92 16 104/60 92 Room Air 21 11/10/24 08:08 98.2 101 16 133/77 95 Room Air LABS: Laboratory: Test 11/10/24 13:37 11/10/24 11:56 11/10/24 08:41 11/09/24 05:34 Range/Units Whole Blood Glucose 68 L 70-110 MG/DL Bedside Glucose Comment Notified Nurse White Blood Count 15.9 H 4.8-10.8 K/uL Red Blood Count 2.65 L 4.50-6.20 MIL/uL Hemoglobin 8.0 L 14.0-18.0 g/dL Hematocrit 25.7 L 42-54 % Mean Corpuscular Volume 97.0 79-99 fL Mean Corpuscular Hemoglobin 30.2 27.0-33.0 pg Mean Corpuscular Hemoglobin Concent 31.1 L 32.0-36.0 g/dL Red Cell Distribution Width 15.1 11.0-15.5 % Platelet Count 167 130-400 K/uL Mean Platelet Volume 11.0 H 7.5-10.5 fL Immature Granulocyte % (Auto) 0.7 0-1 % Neutrophils (%) (Auto) 78.4 H 40.0-77.0 % Lymphocytes (%) (Auto) 11.3 L 21.0-51.0 % Monocytes (%) (Auto) 6.3 3.0-13.0 % Eosinophils (%) (Auto) 3.0 0.0-8.0 % Basophils (%) (Auto) 0.3 0.0-5.0 % Neutrophils # (Auto) 12.5 H 1.8-7.7 K/uL Lymphocytes # (Auto) 1.8 1.0-4.8 K/uL Monocytes # (Auto) 1.0 0.1-1.0 K/uL Eosinophils # (Auto) 0.47 0.00-0.70 K/uL Basophils # (Auto) 0.04 0.00-0.20 K/uL Absolute Immature Granulocyte (auto 0.11 0-1 K/uL Nucleated Red Blood Cells 0.0 0.0-0.19 % Sodium Level 139 136-145 mmol/L Potassium Level 4.3 3.5-5.1 mmol/L Chloride Level 101 101-111 mmol/L Carbon Dioxide Level 29 21-32 mmol/L Blood Urea Nitrogen 37 H 7-18 mg/dL Creatinine 5.0 H 0.5-1.3 mg/dL Glomerular Filtration Rate Calc 12 >90 mL/min Random Glucose 80 70-105 mg/dL Total Calcium 7.5 L 8.5-10.1 mg/dL Total Bilirubin 0.8 0.2-1.0 mg/dL Aspartate Amino Transf (AST/SGOT) 12 10-37 U/L Alanine Aminotransferase (ALT/SGPT) < 6 L 12-78 U/L Alkaline Phosphatase 118 50-136 U/L Total Protein 5.8 L 6.0-8.3 g/dL Albumin 1.7 L 3.5-5.0 g/dL Phosphorus Level 5.8 H 2.5-4.9 mg/dL Magnesium Level 1.90 1.80-2.40 mg/dL Test 11/08/24 15:35 Range/Units Hepatitis B Surface Antigen. Non-Reactive Nonreactive Hepatitis B Surface Antibody. Negative L Reactive Hepatitis B Core Total Antibody. Non-Reactive Nonreactive Hepatitis C Antibody Non-Reactive Nonreactive DIAGNOSTICS / RADIOLOGY: EXAMINATION: SPECTRAL DOPPLER ULTRASOUND EXAMINATION OF THE LEFT LOWER EXTREMITY VEINS. CLINICAL HISTORY: To assess venous flow. COMPARISON: None provided. TECHNIQUE: Real-time ultrasound scan of the veins of the left lower extremity with color Doppler flow, spectral waveform analysis and compression. FINDINGS: DEEP VEINS: The common femoral, superficial femoral (proximal and distal), and popliteal veins are echolucent and compressible. There is normal color Doppler flow throughout. The visualized calf veins appear patent. There are echogenic strands in the mid superficial femoral vein, however flow is present and the vein is partially compressible. SUPERFICIAL VEINS: The greater saphenous veins are patent and compressible. SOFT TISSUES: No popliteal fossa cyst or other abnormalities. IMPRESSION: Linear echogenic strands in the left mid superficial femoral vein, reflecting chronic thrombosis with recanalization. No deep venous thrombosis evident in the remainder of the left lower extremity. No superficial thrombophlebitis in the left lower extremity. /[place] ASSESSMENT: End-stage renal disease. The patient is on home hemodialysis. Scheduled dialysis while in the hospital is on TTS. Diabetes mellitus type 2 with nephropathy. Hypertension and renal manifestation. Anemia and chronic kidney disease. Peripheral arterial disease. Diabetic foot infection. PLAN: Continue current HD schedule, was dialyzed yesterday Continue renal diet. Antimicrobials to be adjusted to end-stage renal disease level. Epogen for management of anemia. Other plans as per physician involved in the care of the patient. LALITHA KOCH Nov 10, 2024 14:15
[2024-11-10] MEDS ORDERED: ALBUMIN (HUMAN) 5% 250 ML IV ONE (16:19)
--- NOTE | 2024-11-10 17:03 | PN ---
[facility] PROGRESS NOTE Date of Service: Nov 10, 2024 Time of Service: 16:39 SUBJECTIVE: 11/07/24: Patient evaluated at bedside with family present. Patient was in pain in his left leg. Patient was given 1 mg of Dilaudid 30 minutes before but he wa s still in pain. Given the patient's persistent high pain score, with ESRD and stable clinical status (alert, oriented, respiratory rate and O2 saturation within normal limits) an increased dose of 1.5 mg IV hydromorphone was ordered for more effective pain control. We will monitor for efficacy and signs of over- sedation. Patient stable with temperature at 98.1 pulse 103, respiratory rate 21, blood pressure 133/88 and the pulse ox of 95 on room air. His labs today showed his WBC dropping to 17.5 from 21.9 yesterday, his hemoglobin also dropped to 8.5 from 9.0. Patient's creatinine was at 7.2 and BUN at 91 he is due for dialysis today. The poly operator Dr. Jackson saw him today in the morning and assess that he has wet gangrene to the left forefoot and a necrotic left heel ulcer, he also has nonoperable peripheral vascular disease and has ischemic rest pain. He also mentioned that the patient is a candidate for a [id number] amputation. He may Brittni reviewed by Dr. Jordan, who is the surgeon. From surgical standpoint they ordered CTA of the abdomen aorta with runoff to access for any vascular abnormalities and if any cardiovascular interventions needed before surgical intervention. Patient is likely to be scheduled for left BKA by Dr. Jordan. Patient was made aware of the plan and he agrees. 11/08/24: Patient evaluated bedside without his family present. Patient was still in pain in his left leg after being given 1.5 mg Dilaudid. Patient refused dialysis yesterday because of his pain so today his creatinine increased to 8.1 from 7.2 yesterday his BUN increased to 96 from 91 yesterday. Spoke to the patient regarding this and he agreed to have his dialysis performed today, hopefully his labs will improve after dialysis. His WBC did decrease to 15.8 from 17.5 yesterday. Patient had a popliteal nerve block for pain management perform yesterday night by the anesthesiologist he still says that the pain is only 30% resolved. Dr. Vizcaino the Infectious Disease specialist saw the patient today and recommended to continue vancomycin and levofloxacin. He is also scheduled for CTA of the abdomen aorta with runoff to access for any vascular abnormalities and if any cardiovascular interventions needed before surgical intervention. His surgery has been scheduled for tomorrow. 11/09/24: Patient evaluated at bedside with his present. Patient is stable but still in pain. He also had episodes of vomiting even on Zofran. Will consult GI after the patients BKA. The BKA has been scheduled for tomorrow. Patient underwent CTA Chest today as preop, still waiting on the report. Patient has also been started on Zofran 40 mg IV. Continuing patients antibiotics of vancomycin and levofloxacin. Patients labs have improved since he got dialysed yesterday. His Creatine has improved from 8.1 to 6.3 and his Bun has gone down to 56 from 96. 11/10/24: Patient evaluated at bedside with his present. Patient is stable but still in pain. He is scheduled to undergo left BKA surgery in the afternoon. Patient had a CTA ABDAOR - CT ANGIO ABD AORTA W RUNOFF performed yesterday which showed diffuse atherosclerotic changes with multilevel focal occlusions segment of the right superficial femoral artery and the right popliteal artery and the trifurcation vessels. Patient's creatinine went down to 5.0 from 6.3 and BUN to 37 from 56. Patient's went to bring that left foot culture came back positive for Gram-negative rods and Gram-positive cocci resistant to gentamicin and sensitive to vancomycin so continuing the patient on vancomycin and levofloxacin REVIEW OF SYSTEMS CONSTITUTIONAL: Denies fevers, chills, or night sweats. No unintentional weight loss reported. Pain in left lower leg NEUROLOGICAL: Denies headache, amaurosis fugax, motor weakness, sensory deficit, vertigo/spinning sensation, gait abnormalities, or tremors. ENT: No hearing loss, otalgia, otorrhea, rhinitis, rhinorrhea, hoarseness, or sore throat. CARDIOVASCULAR: Denies any exertional angina, dyspnea on exertion, orthopnea, paroxysmal nocturnal dyspnea, palpitations, life-threatening arrhythmias, claudication. PULMONARY: Denies any shortness of breath, cough, phlegm/sputum, hemoptysis, pleuritic chest pain. GASTROINTESTINAL: Denies any type of dysphagia to either liquids or solids. Denies nausea, vomiting, pyrosis, early satiety, abdominal pain, diarrhea, constipation, or changes in stool consistency or caliber. GENITOURINARY: Denies frequency, urgency, nocturia, hematuria or incontinence ENDOCRINOLOGIC: Denies polyuria, polydipsia, polyphagia or heat/cold intolerances. HEMATOLOGIC: Denies thrombophilia/previous clots, or coagulopathy/bleeding disorders. DERMATOLOGIC: Denies rashes or pruritus. PSYCHIATRIC: Denies any suicidal or homicidal ideation. Denies hallucinations. PHYSICAL EXAM GENERAL APPEARANCE: The patient is awake, alert, and oriented, in no acute cardiopulmonary distress. NEUROLOGICAL: Motor is 5/5 in bilateral upper and lower extremities proximal to distal. No sensory deficits. HEENT: Face is symmetric. Pupils are equal and reactive. Extraocular movements are intact. NECK: Supple. No JVD. No thyromegaly. No submental, submandibular, pre- /postauricular, occipital or supraclavicular lymphadenopathy. CHEST: Normal chest expansion. No Telemetry. LUNGS: Absence of any rales, rhonchi or any wheezing. CARDIOVASCULAR: Regular. S1 and S2 normal. No appreciable rubs, murmurs or gallops. ABDOMEN: Soft, nontender, and nondistended. There is no rebound, voluntary guarding, or rigidity. : Deferred. No Hutson. EXTREMITIES: Gangrene to left foot, skin avulsion to the heel and plantar aspect. Swelling of left foot with tenderness proximally and decreased sensation distally. Pulses equal, no cyanosis. BKA of RLE SKIN: No skin breakdown. Vital Signs (last 8hr) Date Time Temp Pulse Resp B/P (MAP) Pulse Ox O2 Delivery O2 Flow Rate FiO2 11/10/24 12:00 97.9 92 16 104/60 92 Room Air 21 LABS: Laboratory: Test 11/10/24 15:58 11/10/24 11:56 11/10/24 08:41 11/09/24 05:34 Range/Units Whole Blood Glucose 107 70-110 MG/DL Bedside Glucose Comment Notified Nurse White Blood Count 15.9 H 4.8-10.8 K/uL Red Blood Count 2.65 L 4.50-6.20 MIL/uL Hemoglobin 8.0 L 14.0-18.0 g/dL Hematocrit 25.7 L 42-54 % Mean Corpuscular Volume 97.0 79-99 fL Mean Corpuscular Hemoglobin 30.2 27.0-33.0 pg Mean Corpuscular Hemoglobin Concent 31.1 L 32.0-36.0 g/dL Red Cell Distribution Width 15.1 11.0-15.5 % Platelet Count 167 130-400 K/uL Mean Platelet Volume 11.0 H 7.5-10.5 fL Immature Granulocyte % (Auto) 0.7 0-1 % Neutrophils (%) (Auto) 78.4 H 40.0-77.0 % Lymphocytes (%) (Auto) 11.3 L 21.0-51.0 % Monocytes (%) (Auto) 6.3 3.0-13.0 % Eosinophils (%) (Auto) 3.0 0.0-8.0 % Basophils (%) (Auto) 0.3 0.0-5.0 % Neutrophils # (Auto) 12.5 H 1.8-7.7 K/uL Lymphocytes # (Auto) 1.8 1.0-4.8 K/uL Monocytes # (Auto) 1.0 0.1-1.0 K/uL Eosinophils # (Auto) 0.47 0.00-0.70 K/uL Basophils # (Auto) 0.04 0.00-0.20 K/uL Absolute Immature Granulocyte (auto 0.11 0-1 K/uL Nucleated Red Blood Cells 0.0 0.0-0.19 % Sodium Level 139 136-145 mmol/L Potassium Level 4.3 3.5-5.1 mmol/L Chloride Level 101 101-111 mmol/L Carbon Dioxide Level 29 21-32 mmol/L Blood Urea Nitrogen 37 H 7-18 mg/dL Creatinine 5.0 H 0.5-1.3 mg/dL Glomerular Filtration Rate Calc 12 >90 mL/min Random Glucose 80 70-105 mg/dL Total Calcium 7.5 L 8.5-10.1 mg/dL Total Bilirubin 0.8 0.2-1.0 mg/dL Aspartate Amino Transf (AST/SGOT) 12 10-37 U/L Alanine Aminotransferase (ALT/SGPT) < 6 L 12-78 U/L Alkaline Phosphatase 118 50-136 U/L Total Protein 5.8 L 6.0-8.3 g/dL Albumin 1.7 L 3.5-5.0 g/dL Phosphorus Level 5.8 H 2.5-4.9 mg/dL Magnesium Level 1.90 1.80-2.40 mg/dL Current Medications Medications (Trade) Dose Ordered Sig/Idania Route PRN Reason Start Time Stop Time Status Last Admin Dose Admin Acetaminophen/ Hydrocodone Bitart (NORco 5/325MG) 1 tab Q4H PRN PO MODERATE PAIN (4-6) 11/06/24 13:30 11/07/24 01:21 DC Acetaminophen/ Hydrocodone Bitart (NORco 5/325MG) 2 tab Q4H PRN PO SEVERE PAIN (7-10) 11/06/24 13:30 11/07/24 01:21 DC 11/06/24 22:09 2 TAB Acetaminophen/ Hydrocodone Bitart (NORco 5/325MG) 2 tab Q8H PO 11/07/24 13:00 11/07/24 13:45 DC Acetaminophen/ Hydrocodone Bitart (NORco 5/325MG) 2 tab Q8H PRN PO PAIN LEVEL 7 TO 10 11/07/24 14:00 11/07/24 13:57 DC Acetaminophen/ Hydrocodone Bitart (NORco 5/325MG) 2 tab Q8H PRN PO MODERATE PAIN (4-6) 11/07/24 18:30 11/12/24 18:29 Atorvastatin Calcium (LIPItor 40MG) 40 mg HS PO 11/06/24 21:00 12/06/24 20:59 11/06/24 21:10 40 MG Dextrose (D50w) 50 ml AD PRN IV HYPOGLYCEMIA PROTOCOL 11/06/24 14:30 12/06/24 14:29 11/10/24 13:43 25 ML Enoxaparin Sodium (Lovenox) 30 mg DAILY SQ 11/07/24 09:00 12/07/24 08:59 11/09/24 09:08 30 MG Famotidine (Pepcid 20mg Tab) 20 mg QTUTHSA@2100 PO 11/06/24 21:00 11/09/24 11:34 DC 11/06/24 21:10 20 MG Glucagon (Glucagon 1mg Kit) 1 mg AD PRN IM HYPOGLYCEMIA PROTOCOL 11/06/24 14:30 12/06/24 14:29 Heparin Sodium (Porcine) (HEParin 5,000 UNIT VIAL) 10,000 unit AD IRRIG 11/08/24 15:00 8/22/25 14:59 11/09/24 19:51 10,000 UNIT Hydromorphone HCl (DiLAUDid 1MG INJ) 1 mg Q4H PRN IVP SEVERE PAIN (7-10) 11/07/24 08:00 11/12/24 07:59 11/10/24 08:07 1 MG Insulin Glargine (LANtus 100 UNITS/ML 10 ML VIAL) 10 units HS SQ 11/06/24 21:00 11/07/24 11:22 DC 11/06/24 21:15 10 UNITS Insulin Human Regular (humuLIN R 100 UNIT/ML 3ML) INSULIN SLIDING SCAL... ACHS SQ 11/06/24 16:30 12/06/24 16:29 11/06/24 21:15 3 UNIT Leptospermum Honey (Medihoney) 1 APPL DAILY16 TP 11/07/24 16:00 12/07/24 15:59 11/07/24 17:46 1 APPL Levofloxacin/ Dextrose (LEvaquIN 500 MG/ D5W 100 ML) 500 mg Q48H IV 11/06/24 16:00 11/27/24 15:59 11/06/24 15:46 500 MG Lidocaine (Lidoderm Patch 5%) 1 patch DAILY TP 11/09/24 20:00 12/09/24 19:59 11/10/24 08:06 1 PATCH Morphine Sulfate (morPHINE 2MG SYG) 2 mg Q4H PRN IVP SEVERE PAIN (7-10) 11/07/24 01:30 11/07/24 08:00 DC 11/07/24 02:34 2 MG Nifedipine (adALAT 30MG) 60 mg Q24H PO 11/06/24 14:30 12/06/24 14:29 11/06/24 15:48 60 MG Ondansetron HCl (zoFRAN 4MG INJ) 4 mg Q6H PRN IVP NAUSEA/VOMITING 11/07/24 19:30 12/07/24 19:29 11/09/24 11:33 4 MG Pantoprazole Sodium (PROTonix 40MG INJ) 40 mg DAILY IVP 11/10/24 09:00 12/10/24 08:59 11/10/24 08:06 40 MG Pantoprazole Sodium (PROTonix 40MG INJ) 40 mg DAILY IVP 11/10/24 09:00 12/10/24 08:59 UNV Pharmacy Profile Note (Lace Assessment) 1 each AD MISC 11/07/24 11:30 11/07/24 11:35 DC Sevelamer HCl (RENAgel 800 MG TAB) 400 mg TIDMEALS PO 11/09/24 12:00 12/09/24 11:59 Sodium Chloride 1,000 ml @ 0 mls/hr ONCE IV 11/08/24 15:00 12/08/24 14:59 11/09/24 18:10 1,000 MLS/HR Tramadol HCl (UltRAM) 50 mg Q6H PRN PO MODERATE PAIN (4-6) 11/07/24 01:30 11/07/24 18:09 DC Vancomycin HCl 250 ml @ 166.667 mls/hr QTUSA IV 11/07/24 09:00 11/06/24 13:22 DC Vancomycin HCl 250 ml @ 166.667 mls/hr QTUTHSA[DIALYSIS] IV 11/07/24 16:00 11/28/24 15:59 11/09/24 15:44 166.667 MLS/HR Vancomycin HCl (Vancomycin Protocol) 1 each AD IV 11/06/24 13:30 11/20/24 13:29 DIAGNOSTICS / RADIOLOGY: [place] [address] IMAGING REPORT Signed PATIENT: FREDRICK LION MR#: [id number] : 1965 SEX: M AGE: 59 LOCATION: 3CH ORDER 1033 STATUS: ADM IN REPORT#: [id number] SERVICE 1030 REASON: PREOP ORDERING PHYSICIAN: ELAN RILEY MD PROCEDURE: CTA ABDAOR - CT ANGIO ABD AORTA W RUNOFF Exam: CT angiogram runoff from a Dysplastic the joint emptying. Next. We'll have involutional flow within them with her. Indication: Preop. Technique: Continuous axial images were obtained from just above the aortic bifurcation to the level of the feet after the administration of intravenous contrast material, mL of Isovue-370. Coronal and sagittal reformatted images were obtained. TOTAL DLP: 2836.70 mGy-cm; automated exposure control was utilized. Comparison: Findings: CT abdomen and pelvis angiographic findings: The abdominal aorta is normal in caliber and opacification. There is diffuse atherosclerotic change of the abdominal aorta with calcified plaque. No aortic dissection or abdominal aortic aneurysm is demonstrated. The origin of the celiac artery is widely patent. The origin of the superior mesenteric artery is widely patent. The origin of the right main renal artery is widely patent. The origin of the left main renal artery is widely patent. The origin of the inferior mesenteric artery is patent. Right lower extremity angiographic findings: There is moderate to severe atherosclerotic changes with calcified plaque involving the common common femoral artery. The profunda femoris artery on the right is patent. The right superficial femoral artery has multiple focal areas of occlusion. The right popliteal artery has focal segment of occlusion with reconstitution of collateral. The right anterior tibial artery is occluded at the mid thigh region the right peroneal artery is occluded. The right posterior tibial artery midportion is a segment of occlusion with reconstitution of collaterals with the right posterior tibial artery seen to traverse the ankle. Left lower extremity angiographic findings: There is [id number] atherosclerotic changes of the left common femoral artery. The left superficial femoral artery and profunda femoris artery appears to be treated with mild diffuse atherosclerotic changes. The left popliteal artery is patent opacification present at is origin is patent with below-knee amputation.. CT abdomen and pelvis findings: Visualized lower thorax: The visualized lung bases demonstrate dependent bibasilar atelectasis. Peritoneum: No pneumoperitoneum or ascites is identified. Liver: The liver is normal in size and attenuation. No discrete hepatic mass or intrahepatic biliary ductal dilatation is demonstrated. The hepatic veins and portal vein appear normal. Gallbladder: Gallbladder is surgically absent. Pancreas: Within normal limits. Spleen: Within normal limits. Adrenal Glands: Within normal limits. Kidneys: The kidneys are normal in size and attenuation. No hydronephrosis, calculus, or discrete solid renal mass is identified. Small and large intestine: The small and large intestine is normal in caliber and wall thickness. Uterus: Present Prostate gland: The prostate gland is normal in size. Urinary bladder: The urinary bladder is minimally distended with fluid. Retroperitoneum: No retroperitoneal lymphadenopathy is identified. Bones: Left below-knee amputation with post surgical changes. Impression: Diffuse atherosclerotic changes with multilevel focal occlusions segment of the right superficial femoral artery and right popliteal artery and the trifurcation vessels as described above. Left side there is a left below-knee amputation with mild diffuse atherosclerotic changes of the left common femoral artery. The popliteal artery. DICTATED BY: MARIETTA BECK MD DATE: 11/09/24 1554 ELECTRONICALLY SIGNED BY: MARIETTA BECK MD DATE: 11/09/24 1607 ASSESSMENT: Sepsis POA Left foot gangrene Possible osteomyelitis of left foot ESRD on dialysis T, Th, S POA Uncontrolled DM II Chronic anemia with anemia of renal disease POA History of chronic corticosteroid use as outpatient with the prednisolone POA Psoriatic POA Uncontrolled hypertension POA PAD POA Recent history of hospitalization [facility] for infected right BKA stump with osteomyelitis on IV antibiotics outpatient Recent Cultures wound positive for MRSA and MDRO E coli Recent history of right BKA site debridement 07/21/2024 followed by delayed primary closure on 07/24/[address] Montes PLAN: Sepsis POA * patient improving with the antibiotics he has been receiving * Continue patient on vancomycin and levofloxacin due to penicillin and sulfa allergy * Patient's left leg culture came back positive for Gram-negative rods and Gram- positive cocci in chains identified as Enterococcus faecalis and resistant to gentamicin but they are sensitive to vancomycin Left foot gangrene * Patient taken to surgery for the left BKA * Continue with the Levaquin IV and IV vancomycin * Continue patient on Dilaudid * Patient underwent a popliteal nerve block for pain management ESRD on dialysis T, Th, S POA * Patient underwent dialysis yesterday and his creatinine and BUN are doing much better ATTESTATION BY PHYSICIAN I have seen and examined the patient. I reviewed the documentation, medical decision making, and treatment plan as noted by the resident provider above. I agree with the findings and plan of care. Elan Riley MD, ABHINAV MD Nov 10, 2024 17:03
--- NOTE | 2024-11-10 17:34 | NUR ---
PATIENT LEFT THE UNIT AT 1325 FOR THE OR.
[2024-11-10] MEDS ORDERED: NEOSTIGMINE METHYLSULFATE 1MG/ML IV ONE (18:21)
[2024-11-10] MEDS ORDERED: GLYCOPYRROLATE 0.2 MG/ML 5 ML VIAL ONE (18:21)
--- NOTE | 2024-11-10 18:32 | OP ---
Operative Note: DATE OF PROCEDURE: 11/10/24 SURGEON: STEPHANIE SAMPSON DO DOMESTIC VIOLENCE ADVOCATE: None ANESTHESIA: General ANESTHESIOLOGIST/BUCKET WASH OPERATOR: LOR Pereira PREOPERATIVE DIAGNOSIS: Left foot gangrene POSTOPERATIVE DIAGNOSIS: Left foot gangrene SYNOPSIS: None PROCEDURE: Left below-knee amputation ESTIMATED BLOOD LOSS: 200 cc INDICATIONS: This is a 59-year-old male with longstanding left foot gangrene. The pain has been getting much worse. Patient had angiogram a couple of months ago which showed no medium or large vessel disease. Nothing requiring intervention. Gangrene is too advanced to be addressed by Podiatry. Podiatry asked surgery to see the patient for below-knee amputation. On evaluation the gangrene is dry and extends up to the forefoot. I recommended below-knee amputation to the left lower extremity. I discussed the procedure in detail with the patient and his . All questions were answered. Both expressed understanding and agreement with the plan. DESCRIPTION OF PROCEDURE: The patient was placed on the operating table in the supine position. After adequate sedation the patient was intubated by anesthesia. Perioperative antibiotics were given. The patient's left lower extremities prepped and draped in the usual sterile fashion. A time-out was performed. Anterior and posterior flaps were marked circumferentially to match the level of the patient's right stump. The skin incision was made circumferentially. The anterior musculature was divided using electrocautery to expose the tibia and fibula. The tibia was divided 2 cm proximal to the anterior skin flap. The fibula was divided 2 cm proximal to the tibial transection margin. The posterior flap was created using a an amputation knife. The major vessels were suture ligated. The nerves were divided under tension sharply. Hemostasis was achieved using electrocautery. The tibia was beveled anteriorly and all sharp edges were rounded over. The wound was copiously irrigated with sterile saline. The fascia was approximated in two layers using multiple [id number] sutures of 0 Vicryl. The dermal layer was approximated using inverted interrupted sutures of 3-0 Vicryl. The skin was approximated using skin nyla. The wound was dressed with Xeroform, gauze, Kerlix, Giuseppe wrap. The patient tolerated the procedure well. All instrument, needle, and sponge counts were correct at the end of the procedure. The patient was aroused from sedation, extubated, and transferred to the postanesthesia care unit in good condition. STEPHANIE SAMPSON DO Nov 10, 2024 18:32
[2024-11-11] VITALS (24 sets, daily range): BP systolic 113–154; BP diastolic 52–89; PULSE 87–100; RESP 16–19; TEMP 97.5–98.7; O2SAT 96
[2024-11-11 05:31] LABS: NUCLEATED RED BLOOD CELLS 0.0 % (0.0-0.19); PLATELET COUNT (AUTO) 172.0 K/uL (130-400); RED BLOOD CELL COUNT(AUTO) 2.7 MIL/uL (4.50-6.20); RED CELL DISTRIBUTION WIDTH 15.6 % (11.0-15.5); WHITE BLOOD COUNT (AUTO) 13.9 K/uL (4.8-10.8)
[2024-11-11 05:41] LABS: ASPARTATE AMINOTRANSFERASE 12 U/L (10-37); CREATININE 6.3 mg/dL (0.5-1.3); GLOMERULAR FILTR. RATE CALC 9 mL/min (>90); GLUCOSE,RANDOM 244 mg/dL (70-105); SODIUM SERUM 131 mmol/L (136-145); TOTAL PROTEIN, SERUM 6.1 g/dL (6.0-8.3); UREA NITROGEN, BLOOD 46 mg/dL (7-18); VANCOMYCIN LEVEL 24.7 mcg/mL (20.0-30.0)
--- NOTE | 2024-11-11 13:48 | PN ---
Progress Note: SUBJECTIVE: The patient is postop day 1 from left BKA. Overnight has had no acute events. pain controlled. No nausea, no vomiting. tolerating diet, passing gas, OBJECTIVE: VITAL SIGNS: Vital signs reviewed and stable. CARDIOVASCULAR: Regular rhythm LUNGS: Clear to auscultation. ABDOMEN: Soft, mildly distended, non tender. EXTREMITIES: Incisions are dry, clean, intact, and still covered. LABORATORY DATA: Lab work has been reviewed. ASSESSMENT AND PLAN: pt needs to flex and extend the knee of the left leg. cont w pain controlled leave the dressing in place for 3days LINA LIMON MD Nov 11, 2024 13:48
--- NOTE | 2024-11-11 15:06 | PN ---
[facility] PROGRESS NOTE Date of Service: Nov 11, 2024 Time of Service: 14:34 SUBJECTIVE: 11/07/24: Patient evaluated at bedside with family present. Patient was in pain in his left leg. Patient was given 1 mg of Dilaudid 30 minutes before but he wa s still in pain. Given the patient's persistent high pain score, with ESRD and stable clinical status (alert, oriented, respiratory rate and O2 saturation within normal limits) an increased dose of 1.5 mg IV hydromorphone was ordered for more effective pain control. We will monitor for efficacy and signs of over- sedation. Patient stable with temperature at 98.1 pulse 103, respiratory rate 21, blood pressure 133/88 and the pulse ox of 95 on room air. His labs today showed his WBC dropping to 17.5 from 21.9 yesterday, his hemoglobin also dropped to 8.5 from 9.0. Patient's creatinine was at 7.2 and BUN at 91 he is due for dialysis today. The nut sifter Dr. Jackson saw him today in the morning and assess that he has wet gangrene to the left forefoot and a necrotic left heel ulcer, he also has nonoperable peripheral vascular disease and has ischemic rest pain. He also mentioned that the patient is a candidate for a otbwz-vyw-gnlf amputation. He may Brittni reviewed by Dr. Jordan, who is the surgeon. From surgical standpoint they ordered CTA of the abdomen aorta with runoff to access for any vascular abnormalities and if any cardiovascular interventions needed before surgical intervention. Patient is likely to be scheduled for left BKA by Dr. Jordan. Patient was made aware of the plan and he agrees. 11/08/24: Patient evaluated bedside without his family present. Patient was still in pain in his left leg after being given 1.5 mg Dilaudid. Patient refused dialysis yesterday because of his pain so today his creatinine increased to 8.1 from 7.2 yesterday his BUN increased to 96 from 91 yesterday. Spoke to the patient regarding this and he agreed to have his dialysis performed today, hopefully his labs will improve after dialysis. His WBC did decrease to 15.8 from 17.5 yesterday. Patient had a popliteal nerve block for pain management perform yesterday night by the anesthesiologist he still says that the pain is only 30% resolved. Dr. Vizcaino the Infectious Disease specialist saw the patient today and recommended to continue vancomycin and levofloxacin. He is also scheduled for CTA of the abdomen aorta with runoff to access for any vascular abnormalities and if any cardiovascular interventions needed before surgical intervention. His surgery has been scheduled for tomorrow. 11/09/24: Patient evaluated at bedside with his present. Patient is stable but still in pain. He also had episodes of vomiting even on Zofran. Will consult GI after the patients BKA. The BKA has been scheduled for tomorrow. Patient underwent CTA Chest today as preop, still waiting on the report. Patient has also been started on Zofran 40 mg IV. Continuing patients antibiotics of vancomycin and levofloxacin. Patients labs have improved since he got dialysed yesterday. His Creatine has improved from 8.1 to 6.3 and his Bun has gone down to 56 from 96. 11/10/24: Patient evaluated at bedside with his present. Patient is stable but still in pain. He is scheduled to undergo left BKA surgery in the afternoon. Patient had a CTA ABDAOR - CT ANGIO ABD AORTA W RUNOFF performed yesterday which showed diffuse atherosclerotic changes with multilevel focal occlusions segment of the right superficial femoral artery and the right popliteal artery and the trifurcation vessels. Patient's creatinine went down to 5.0 from 6.3 and BUN to 37 from 56. Patient's went to bring that left foot culture came back positive for Gram-negative rods and Gram-positive cocci resistant to gentamicin and sensitive to vancomycin so continuing the patient on vancomycin and levofloxacin 11/11/24: The patient is postoperative day 1from a left below-knee amputation (BKA). He remains hemodynamically stable with no acute events overnight. He denies nausea or vomiting, is tolerating diet well, and is passing flatus. He continues to report pain, for which he received1 mg of IV Dilaudid. He is currently receiving antibiotic therapy with Levaquin and Zosyn. Hemodialysis was performed today with a net removal of 1.6 L. Pre dialysis labs revealed sodium 131, potassium 5.2, BUN 46, creatinine 6.3, WBC 13.9, hemoglobin 8.2, platelet 172. Repeat laboratory testing is planned for tomorrow morning. The patient was advised to begin gentle flexion and extension exercise of the left knee. The surgical dressing will remain in place for 3 days. We will await further recommendation from the Surgical and Infectious Disease teams. The patient has expressed a strong preference for discharge with home health service and has declined transfer to a group home facility for rehabilitation. REVIEW OF SYSTEMS CONSTITUTIONAL: Denies fevers, chills, or night sweats. No unintentional weight loss reported. MUSCULOSKELETAL: Vvtdw-swd-xznb amputation on the right. Left lower extremity pos up from BKA. Pain at surgical site. NEUROLOGICAL: Denies headache, amaurosis fugax, motor weakness, sensory deficit, vertigo/spinning sensation, gait abnormalities, or tremors. ENT: No hearing loss, otalgia, otorrhea, rhinitis, rhinorrhea, hoarseness, or sore throat. CARDIOVASCULAR: Denies any exertional angina, dyspnea on exertion, orthopnea, paroxysmal nocturnal dyspnea, palpitations, life-threatening arrhythmias, claudication. PULMONARY: Denies any shortness of breath, cough, phlegm/sputum, hemoptysis, pleuritic chest pain. GASTROINTESTINAL: Denies any type of dysphagia to either liquids or solids. Denies nausea, vomiting, pyrosis, early satiety, abdominal pain, diarrhea, constipation, or changes in stool consistency or caliber. GENITOURINARY: Denies frequency, urgency, nocturia, hematuria or incontinence ENDOCRINOLOGIC: Denies polyuria, polydipsia, polyphagia or heat/cold intolerances. HEMATOLOGIC: Denies thrombophilia/previous clots, or coagulopathy/bleeding disorders. DERMATOLOGIC: Denies rashes or pruritus. PSYCHIATRIC: Denies any suicidal or homicidal ideation. Denies hallucinations. PHYSICAL EXAM GENERAL APPEARANCE: The patient is awake, alert, and oriented, in no acute cardiopulmonary distress. NEUROLOGICAL: Motor is 5/5 in bilateral upper and lower extremities proximal to distal. No sensory deficits. HEENT: Face is symmetric. Pupils are equal and reactive. Extraocular movements are intact. NECK: Supple. No JVD. No thyromegaly. No submental, submandibular, pre- /postauricular, occipital or supraclavicular lymphadenopathy. CHEST: Normal chest expansion. No Telemetry. LUNGS: Absence of any rales, rhonchi or any wheezing. CARDIOVASCULAR: Regular. S1 and S2 normal. No appreciable rubs, murmurs or gallops. ABDOMEN: Soft, nontender, and nondistended. There is no rebound, voluntary guarding, or rigidity. : Deferred. No Hutson. EXTREMITIES: Left lower extremity with surgical dressing in place over BKA si te, clean, dry, and intact. Mild postop tenderness. BKA of RLE SKIN: No skin breakdown. Vital Signs (last 8hr) Date Time Temp Pulse Resp B/P (MAP) Pulse Ox O2 Delivery O2 Flow Rate FiO2 11/11/24 12:00 97.5 90 19 151/61 97 Room Air 11/11/24 11:53 97.5 92 16 141/78 Room Air 11/11/24 11:45 97.5 90 16 127/62 Room Air 11/11/24 11:30 92 16 130/68 Room Air 11/11/24 11:15 93 16 148/65 Room Air 11/11/24 11:00 90 16 114/64 Room Air 11/11/24 10:45 91 16 129/62 Room Air 11/11/24 10:30 90 16 113/57 Room Air 11/11/24 10:15 87 16 116/63 Room Air 11/11/24 10:00 91 16 136/71 Room Air 11/11/24 09:45 90 16 119/67 Room Air 11/11/24 09:30 93 16 144/77 Room Air 11/11/24 09:15 92 16 121/64 Room Air 11/11/24 09:00 94 16 116/68 Room Air 11/11/24 08:45 98.1 88 16 129/68 Room Air 11/11/24 08:15 98.1 88 16 129/68 Room Air 11/11/24 08:00 97.7 92 19 147/78 96 Room Air LABS: Laboratory: Test 11/11/24 11:16 11/11/24 05:19 11/11/24 05:18 11/10/24 08:41 Range/Units Whole Blood Glucose 110 # 70-110 MG/DL White Blood Count 13.9 H 4.8-10.8 K/uL Red Blood Count 2.70 L 4.50-6.20 MIL/uL Hemoglobin 8.2 L 14.0-18.0 g/dL Hematocrit 26.2 L 42-54 % Mean Corpuscular Volume 97.0 79-99 fL Mean Corpuscular Hemoglobin 30.4 27.0-33.0 pg Mean Corpuscular Hemoglobin Concent 31.3 L 32.0-36.0 g/dL Red Cell Distribution Width 15.6 H 11.0-15.5 % Platelet Count 172 130-400 K/uL Mean Platelet Volume 11.1 H 7.5-10.5 fL Nucleated Red Blood Cells 0.0 0.0-0.19 % Sodium Level 131 L 136-145 mmol/L Potassium Level 5.2 H 3.5-5.1 mmol/L Chloride Level 94 L 101-111 mmol/L Carbon Dioxide Level 19 L 21-32 mmol/L Blood Urea Nitrogen 46 H 7-18 mg/dL Creatinine 6.3 H 0.5-1.3 mg/dL Glomerular Filtration Rate Calc 9 >90 mL/min Random Glucose 244 #H 70-105 mg/dL Total Calcium 7.9 L 8.5-10.1 mg/dL Total Bilirubin 0.8 0.2-1.0 mg/dL Aspartate Amino Transf (AST/SGOT) 12 10-37 U/L Alanine Aminotransferase (ALT/SGPT) < 6 L 12-78 U/L Alkaline Phosphatase 115 50-136 U/L Total Protein 6.1 6.0-8.3 g/dL Albumin 1.9 L 3.5-5.0 g/dL Vancomycin Level 24.7 20.0-30.0 mcg/mL Bedside Glucose Comment Notified Nurse Immature Granulocyte % (Auto) 0.7 0-1 % Neutrophils (%) (Auto) 78.4 H 40.0-77.0 % Lymphocytes (%) (Auto) 11.3 L 21.0-51.0 % Monocytes (%) (Auto) 6.3 3.0-13.0 % Eosinophils (%) (Auto) 3.0 0.0-8.0 % Basophils (%) (Auto) 0.3 0.0-5.0 % Neutrophils # (Auto) 12.5 H 1.8-7.7 K/uL Lymphocytes # (Auto) 1.8 1.0-4.8 K/uL Monocytes # (Auto) 1.0 0.1-1.0 K/uL Eosinophils # (Auto) 0.47 0.00-0.70 K/uL Basophils # (Auto) 0.04 0.00-0.20 K/uL Absolute Immature Granulocyte (auto 0.11 0-1 K/uL Current Medications Medications (Trade) Dose Ordered Sig/Idania Route PRN Reason Start Time Stop Time Status Last Admin Dose Admin Acetaminophen/ Hydrocodone Bitart (NORco 5/325MG) 1 tab Q4H PRN PO MODERATE PAIN (4-6) 11/06/24 13:30 11/07/24 01:21 DC Acetaminophen/ Hydrocodone Bitart (NORco 5/325MG) 2 tab Q4H PRN PO SEVERE PAIN (7-10) 11/06/24 13:30 11/07/24 01:21 DC 11/06/24 22:09 2 TAB Acetaminophen/ Hydrocodone Bitart (NORco 5/325MG) 2 tab Q8H PO 11/07/24 13:00 11/07/24 13:45 DC Acetaminophen/ Hydrocodone Bitart (NORco 5/325MG) 2 tab Q8H PRN PO PAIN LEVEL 7 TO 10 11/07/24 14:00 11/07/24 13:57 DC Acetaminophen/ Hydrocodone Bitart (NORco 5/325MG) 2 tab Q8H PRN PO MODERATE PAIN (4-6) 11/07/24 18:30 11/12/24 18:29 Atorvastatin Calcium (LIPItor 40MG) 40 mg HS PO 11/06/24 21:00 12/06/24 20:59 11/10/24 20:27 40 MG Dextrose (D50w) 50 ml AD PRN IV HYPOGLYCEMIA PROTOCOL 11/06/24 14:30 12/06/24 14:29 11/10/24 13:43 25 ML Enoxaparin Sodium (Lovenox) 30 mg DAILY SQ 11/07/24 09:00 12/07/24 08:59 11/11/24 08:15 30 MG Famotidine (Pepcid 20mg Tab) 20 mg QTUTHSA@2100 PO 11/06/24 21:00 11/09/24 11:34 DC 11/06/24 21:10 20 MG Glucagon (Glucagon 1mg Kit) 1 mg AD PRN IM HYPOGLYCEMIA PROTOCOL 11/06/24 14:30 12/06/24 14:29 Heparin Sodium (Porcine) (HEParin 5,000 UNIT VIAL) 10,000 unit AD IRRIG 11/08/24 15:00 12/08/24 14:59 11/11/24 11:22 10,000 UNIT Hydromorphone HCl (DiLAUDid 1MG INJ) 1 mg Q4H PRN IVP SEVERE PAIN (7-10) 11/07/24 08:00 11/12/24 07:59 11/11/24 12:53 1 MG Insulin Glargine (LANtus 100 UNITS/ML 10 ML VIAL) 10 units HS SQ 11/06/24 21:00 11/07/24 11:22 DC 11/06/24 21:15 10 UNITS Insulin Human Regular (humuLIN R 100 UNIT/ML 3ML) INSULIN SLIDING SCAL... ACHS SQ 11/06/24 16:30 12/06/24 16:29 11/11/24 06:58 4 UNIT Leptospermum Honey (Medihoney) 1 APPL DAILY16 TP 11/07/24 16:00 12/07/24 15:59 11/07/24 17:46 1 APPL Levofloxacin/ Dextrose (LEvaquIN 500 MG/ D5W 100 ML) 500 mg Q48H IV 11/06/24 16:00 11/27/24 15:59 11/11/24 01:19 500 MG Lidocaine (Lidoderm Patch 5%) 1 patch DAILY TP 11/09/24 20:00 12/09/24 19:59 11/11/24 08:15 1 PATCH Morphine Sulfate (morPHINE 2MG SYG) 2 mg Q4H PRN IVP SEVERE PAIN (7-10) 11/07/24 01:30 11/07/24 08:00 DC 11/07/24 02:34 2 MG Nifedipine (adALAT 30MG) 60 mg Q24H PO 11/06/24 14:30 12/06/24 14:29 11/06/24 15:48 60 MG Ondansetron HCl (zoFRAN 4MG INJ) 4 mg Q6H PRN IVP NAUSEA/VOMITING 11/07/24 19:30 12/07/24 19:29 11/09/24 11:33 4 MG Pantoprazole Sodium (PROTonix 40MG INJ) 40 mg DAILY IVP 11/10/24 09:00 12/10/24 08:59 11/11/24 08:14 40 MG Pantoprazole Sodium (PROTonix 40MG INJ) 40 mg DAILY IVP 11/10/24 09:00 12/10/24 08:59 UNV Pharmacy Profile Note (Lace Assessment) 1 each AD MISC 11/07/24 11:30 11/07/24 11:35 DC Sevelamer HCl (RENAgel 800 MG TAB) 400 mg TIDMEALS PO 11/09/24 12:00 12/09/24 11:59 11/11/24 11:45 400 MG Sodium Chloride 1,000 ml @ 0 mls/hr ONCE IV 11/08/24 15:00 12/08/24 14:59 11/11/24 09:45 1,000 MLS/HR Tramadol HCl (UltRAM) 50 mg Q6H PRN PO MODERATE PAIN (4-6) 11/07/24 01:30 11/07/24 18:09 DC Vancomycin HCl 250 ml @ 166.667 mls/hr QTUSA IV 11/07/24 09:00 11/06/24 13:22 DC Vancomycin HCl 250 ml @ 166.667 mls/hr QTUTHSA[DIALYSIS] IV 11/07/24 16:00 11/11/24 06:25 DC 11/09/24 15:44 166.667 MLS/HR Vancomycin HCl (Vancomycin 750mg) 750 mg QTUTHSA[DIALYSIS] IVPB 11/11/24 16:00 12/02/24 15:59 Vancomycin HCl (Vancomycin Protocol) 1 each AD IV 11/06/24 13:30 11/20/24 13:29 DIAGNOSTICS / RADIOLOGY: PATIENT: FREDRICK LION MR#: [id number] : 1965 SEX: M AGE: 59 LOCATION: [facility] ORDER 1033 STATUS: ADM IN REPORT#: [id number] SERVICE 1030 REASON: PREOP ORDERING PHYSICIAN: ELAN RILEY MD PROCEDURE: CTA ABDAOR - CT ANGIO ABD AORTA W RUNOFF Exam: CT angiogram runoff from a Dysplastic the joint emptying. Next. We'll have involutional flow within them with her. Indication: Preop. Technique: Continuous axial images were obtained from just above the aortic bifurcation to the level of the feet after the administration of intravenous contrast material, mL of Isovue-370. Coronal and sagittal reformatted images were obtained. TOTAL DLP: 2836.70 mGy-cm; automated exposure control was utilized. Comparison: Findings: CT abdomen and pelvis angiographic findings: The abdominal aorta is normal in caliber and opacification. There is diffuse atherosclerotic change of the abdominal aorta with calcified plaque. No aortic dissection or abdominal aortic aneurysm is demonstrated. The origin of the celiac artery is widely patent. The origin of the superior mesenteric artery is widely patent. The origin of the right main renal artery is widely patent. The origin of the left main renal artery is widely patent. The origin of the inferior mesenteric artery is patent. Right lower extremity angiographic findings: There is moderate to severe atherosclerotic changes with calcified plaque involving the common common femoral artery. The profunda femoris artery on the right is patent. The right superficial femoral artery has multiple focal areas of occlusion. The right popliteal artery has focal segment of occlusion with reconstitution of collateral. The right anterior tibial artery is occluded at the mid thigh region the right peroneal artery is occluded. The right posterior tibial artery midportion is a segment of occlusion with reconstitution of collaterals with the right posterior tibial artery seen to traverse the ankle. Left lower extremity angiographic findings: There is klte-vl-ukyffhah atherosclerotic changes of the left common femoral artery. The left superficial femoral artery and profunda femoris artery appears to be treated with mild diffuse atherosclerotic changes. The left popliteal artery is patent opacification present at is origin is patent with below-knee amputation.. CT abdomen and pelvis findings: Visualized lower thorax: The visualized lung bases demonstrate dependent bibasilar atelectasis. Peritoneum: No pneumoperitoneum or ascites is identified. Liver: The liver is normal in size and attenuation. No discrete hepatic mass or intrahepatic biliary ductal dilatation is demonstrated. The hepatic veins and portal vein appear normal. Gallbladder: Gallbladder is surgically absent. Pancreas: Within normal limits. Spleen: Within normal limits. Adrenal Glands: Within normal limits. Kidneys: The kidneys are normal in size and attenuation. No hydronephrosis, calculus, or discrete solid renal mass is identified. Small and large intestine: The small and large intestine is normal in caliber and wall thickness. Uterus: Present Prostate gland: The prostate gland is normal in size. Urinary bladder: The urinary bladder is minimally distended with fluid. Retroperitoneum: No retroperitoneal lymphadenopathy is identified. Bones: Left below-knee amputation with post surgical changes. Impression: Diffuse atherosclerotic changes with multilevel focal occlusions segment of the right superficial femoral artery and right popliteal artery and the trifurcation vessels as described above. Left side there is a left below-knee amputation with mild diffuse atherosclerotic changes of the left common femoral artery. The popliteal artery. DICTATED BY: MARIETTA BECK MD DATE: 11/09/24 1554 ELECTRONICALLY SIGNED BY: MARIETTA BECK MD DATE: 11/09/24 1607 ASSESSMENT: Sepsis POA Left foot gangrene Postoperative day left below-knee amputation ESRD on dialysis T, Th, S POA Uncontrolled DM II Chronic anemia with anemia of renal disease POA History of chronic corticosteroid use as outpatient with the prednisolone POA Psoriatic POA Uncontrolled hypertension POA PAD POA Recent history of hospitalization [facility] for infected right BKA stump with osteomyelitis on IV antibiotics outpatient Recent Cultures wound positive for MRSA and MDRO E coli Recent history of right BKA site debridement 07/21/2024 followed by delayed primary closure on 07/24/[address] Montes PLAN: Sepsis POA * patient improving with the antibiotics he has been receiving * Continue patient on vancomycin and levofloxacin due to penicillin and sulfa allergy * Monitor for clinical signs of infection * Await input from Infectious Disease team Post operative day 1 left below-knee amputation (BKA) * Patient stable with no postop complications overnight * Continue to monitor surgical site, dressing to remain in place for3 days * Encourage left knee flexion and extension exercises to preserve joint mobility * Await surgical team's recommendations * Continue patient on Dilaudid ESRD on dialysis T, Th, S POA * Patient underwent dialysis yesterday and his creatinine and BUN are doing much better ATTESTATION BY PHYSICIAN I have seen and examined the patient. I reviewed the documentation, medical decision making, and treatment plan as noted by the resident provider above. I agree with the findings and plan of care. Elan Riley MD, GERARDO MD Nov 11, 2024 15:06
[2024-11-11] MEDS: VANCOMYCIN 750MG VIAL IVPB SCH (16:08)
--- NOTE | 2024-11-11 17:02 | PN ---
INFECTIOUS DISEASE PROGRESS NOTE Date of Service: Nov 11, 2024 SUBJECTIVE: Patient was seen and examined at bedside in room 318. Patient is status post left djpae-mmg-rfhi amputation day # 1. No fever reported throughout the night, current temperature is 97.5. Patient will be dialyzed today. Pending a physical therapy evaluation. Will continue on vancomycin per pharmacy protocol and levofloxacin IV and we will re-evaluate tomorrow. No reports of nausea or vomiting. PHYSICAL EXAM EYES: Anicteric. Pupils equal and reactive. HENT: No oral thrush seen, moist Oral mucosa. NECK: Supple, no JVD or thyromegaly. LUNGS: Good air entry. No rales, no rhonchi. CARDIOVASCULAR: S1, S2 regular. No murmur heard. ABDOMEN: Soft, non tender, bowel sounds present, no organomegaly. CENTRAL NERVOUS SYSTEM: Awake, alert, oriented x 3. SKIN: No rashes, no swelling. LYMPHATICS: No peripheral lymphadenopathy MUSCULOSKELETAL: No joint swelling, erythema or tenderness. Left foot diabetic ulcer with gangrene, s/p left xnoja-xyz-hhvq amputation on 11/10/2024. History of Right uvqrc-ghx-plux amputation. EXTREMITIES: No cyanosis or clubbing. BACK: No deformity, no pressure ulcer. GENITOURINARY: No dysuria or hematuria. Vital Sign (Last 12 Hours) 11/11/24 11/11/24 11/11/24 11/11/24 08:00 08:15 08:45 09:00 Temp 97.7 98.1 98.1 Pulse 92 88 88 94 Resp 19 16 16 16 B/P (MAP) 147/78 129/68 129/68 116/68 Pulse Ox 96 O2 Delivery Room Air Room Air Room Air Room Air 11/11/24 11/11/24 11/11/24 11/11/24 09:15 09:30 09:45 10:00 Pulse 92 93 90 91 Resp 16 16 16 16 B/P (MAP) 121/64 144/77 119/67 136/71 O2 Delivery Room Air Room Air Room Air Room Air 11/11/24 11/11/24 11/11/24 11/11/24 10:15 10:30 10:45 11:00 Pulse 87 90 91 90 Resp 16 16 16 16 B/P (MAP) 116/63 113/57 129/62 114/64 O2 Delivery Room Air Room Air Room Air Room Air 11/11/24 11/11/24 11/11/24 11/11/24 11:15 11:30 11:45 11:53 Temp 97.5 97.5 Pulse 93 92 90 92 Resp 16 16 16 16 B/P (MAP) 148/65 130/68 127/62 141/78 O2 Delivery Room Air Room Air Room Air Room Air 11/11/24 12:00 Temp 97.5 Pulse 90 Resp 19 B/P (MAP) 151/61 Pulse Ox 97 O2 Delivery Room Air Intake & Output (last 24hrs) 11/10/24 11/10/24 11/11/24 15:00 23:00 07:00 Intake Total 25.0 ml 340.0 ml Output Total 0 ml Balance 25.0 ml 340.0 ml LABS: Laboratory: Test 11/11/24 11:16 11/11/24 05:19 11/11/24 05:18 11/10/24 08:41 Range/Units Whole Blood Glucose 110 # 70-110 MG/DL White Blood Count 13.9 H 4.8-10.8 K/uL Red Blood Count 2.70 L 4.50-6.20 MIL/uL Hemoglobin 8.2 L 14.0-18.0 g/dL Hematocrit 26.2 L 42-54 % Mean Corpuscular Volume 97.0 79-99 fL Mean Corpuscular Hemoglobin 30.4 27.0-33.0 pg Mean Corpuscular Hemoglobin Concent 31.3 L 32.0-36.0 g/dL Red Cell Distribution Width 15.6 H 11.0-15.5 % Platelet Count 172 130-400 K/uL Mean Platelet Volume 11.1 H 7.5-10.5 fL Nucleated Red Blood Cells 0.0 0.0-0.19 % Sodium Level 131 L 136-145 mmol/L Potassium Level 5.2 H 3.5-5.1 mmol/L Chloride Level 94 L 101-111 mmol/L Carbon Dioxide Level 19 L 21-32 mmol/L Blood Urea Nitrogen 46 H 7-18 mg/dL Creatinine 6.3 H 0.5-1.3 mg/dL Glomerular Filtration Rate Calc 9 >90 mL/min Random Glucose 244 #H 70-105 mg/dL Total Calcium 7.9 L 8.5-10.1 mg/dL Total Bilirubin 0.8 0.2-1.0 mg/dL Aspartate Amino Transf (AST/SGOT) 12 10-37 U/L Alanine Aminotransferase (ALT/SGPT) < 6 L 12-78 U/L Alkaline Phosphatase 115 50-136 U/L Total Protein 6.1 6.0-8.3 g/dL Albumin 1.9 L 3.5-5.0 g/dL Vancomycin Level 24.7 20.0-30.0 mcg/mL Bedside Glucose Comment Notified Nurse Immature Granulocyte % (Auto) 0.7 0-1 % Neutrophils (%) (Auto) 78.4 H 40.0-77.0 % Lymphocytes (%) (Auto) 11.3 L 21.0-51.0 % Monocytes (%) (Auto) 6.3 3.0-13.0 % Eosinophils (%) (Auto) 3.0 0.0-8.0 % Basophils (%) (Auto) 0.3 0.0-5.0 % Neutrophils # (Auto) 12.5 H 1.8-7.7 K/uL Lymphocytes # (Auto) 1.8 1.0-4.8 K/uL Monocytes # (Auto) 1.0 0.1-1.0 K/uL Eosinophils # (Auto) 0.47 0.00-0.70 K/uL Basophils # (Auto) 0.04 0.00-0.20 K/uL Absolute Immature Granulocyte (auto 0.11 0-1 K/uL ASSESSMENT: Left foot diabetic ulcer with gangrene and osteomyelitis, status post left edouy-wug-esdu amputation. Sepsis. Leukocytosis, improving. End-stage renal disease, on dialysis. Diabetes mellitus. Anemia with a history of blood transfusion. Psoriasis. Possible fracture of the third proximal phalanx base. PLAN: Continue vancomycin per pharmacy protocol. Continue levofloxacin. Continue dialysis as recommended by pulmonary physician. Continue pain management. Continue wound care. Pending physical therapy evaluation. This case was reviewed and discussed with my supervising physician and the above assessment and plan was formulated and agreed upon. ATTESTATION BY PHYSICIAN I have seen and examined the patient. I reviewed the documentation, medical decision making, and treatment plan as noted by the mid-level provider above. I agree with the findings and plan of care. ENEDELIA GUAMAN MD, MIRTA L [facility] Nov 11, 2024 17:02
[2024-11-12] VITALS (8 sets, daily range): BP systolic 111–149; BP diastolic 63–77; PULSE 86–92; RESP 17–19; TEMP 97.7–98.2; O2SAT 92–98
[2024-11-12 05:24] LABS: IMMATURE GRANULOCYTE ABSOLUTE 0.13 K/uL (0-1); NUCLEATED RED BLOOD CELLS 0.0 % (0.0-0.19); PLATELET COUNT (AUTO) 179 K/uL (130-400); RED BLOOD CELL COUNT(AUTO) 2.47 MIL/uL (4.50-6.20); RED CELL DISTRIBUTION WIDTH 15.2 % (11.0-15.5); WHITE BLOOD COUNT (AUTO) 14.8 K/uL (4.8-10.8)
[2024-11-12 05:40] LABS: ASPARTATE AMINOTRANSFERASE 10 U/L (10-37); CREATININE 4.4 mg/dL (0.5-1.3); GLOMERULAR FILTR. RATE CALC 15 mL/min (>90); GLUCOSE,RANDOM 179 mg/dL (70-105); PHOSPHORUS 5.0 mg/dL (2.5-4.9); SODIUM SERUM 137 mmol/L (136-145); TOTAL PROTEIN, SERUM 5.7 g/dL (6.0-8.3); UREA NITROGEN, BLOOD 32 mg/dL (7-18)
[2024-11-12] MEDS: HYDROcodone/APAP 5/325 1 TAB TABLET PO PRN (08:50)
--- NOTE | 2024-11-12 09:10 | PN ---
INFECTIOUS DISEASE FOLLOWUP NOTE DATE OF SERVICE: 11/10/2024 SUBJECTIVE: The patient is seen and examined at bedside today. The patient has no fever, no chills. outpatient today. No rashes or itchiness. No palpitation or orthopnea. No slurred speech or limb weakness. No neck pain or neck swelling. PHYSICAL EXAMINATION: VITAL SIGNS: Temperature today 98.5. EYES: No icterus. Pupils are equal and reactive. HENT: No oral thrush seen. Moist oral mucosa. NECK: Supple. No JVD or thyromegaly. LUNGS: Good air entry. No rales. No rhonchi. CARDIOVASCULAR: S1 and S2, regular. ABDOMEN: Obese, soft, nontender. Bowel sounds present. CENTRAL NERVOUS SYSTEM: Awake, alert, and oriented x 3. Bedbound debility. No focal deficits. SKIN: No rashes. No itchiness. LYMPHATIC: There is inguinal lymphadenopathy. BACK: No deformity. No pressure ulcer. EXTREMITIES: Wet gangrene involving the left foot. ASSESSMENT: A 59-year-old male with multiple problems which include, * Left foot gangrene and osteomyelitis. * Psoriasis. * End-stage renal disease, on dialysis. * Peripheral vascular disease. * Obesity. * Debility. PLAN: * Continue wound care. * Continue vancomycin. * Continue levofloxacin. * Continue dialysis. * Continue pain management. * Monitor electrolyte. * Continue nutritional support. * The patient will be followed up closely. TID: [id number] RECEIPT: [id number]
[2024-11-12] MEDS: SENNOSIDES 8.6 MG TABLET PO ONE (11:58)
--- NOTE | 2024-11-12 15:48 | PN ---
[facility] PROGRESS NOTE Date of Service: Nov 12, 2024 Time of Service: 15:39 SUBJECTIVE: 11/07/24: Patient evaluated at bedside with family present. Patient was in pain in his left leg. Patient was given 1 mg of Dilaudid 30 minutes before but he wa s still in pain. Given the patient's persistent high pain score, with ESRD and stable clinical status (alert, oriented, respiratory rate and O2 saturation within normal limits) an increased dose of 1.5 mg IV hydromorphone was ordered for more effective pain control. We will monitor for efficacy and signs of over- sedation. Patient stable with temperature at 98.1 pulse 103, respiratory rate 21, blood pressure 133/88 and the pulse ox of 95 on room air. His labs today showed his WBC dropping to 17.5 from 21.9 yesterday, his hemoglobin also dropped to 8.5 from 9.0. Patient's creatinine was at 7.2 and BUN at 91 he is due for dialysis today. The pilot submersible Dr. Jackson saw him today in the morning and assess that he has wet gangrene to the left forefoot and a necrotic left heel ulcer, he also has nonoperable peripheral vascular disease and has ischemic rest pain. He also mentioned that the patient is a candidate for a rhvaq-bka-apop amputation. He may Brittni reviewed by Dr. Jordan, who is the surgeon. From surgical standpoint they ordered CTA of the abdomen aorta with runoff to access for any vascular abnormalities and if any cardiovascular interventions needed before surgical intervention. Patient is likely to be scheduled for left BKA by Dr. Jordan. Patient was made aware of the plan and he agrees. 11/08/24: Patient evaluated bedside without his family present. Patient was still in pain in his left leg after being given 1.5 mg Dilaudid. Patient refused dialysis yesterday because of his pain so today his creatinine increased to 8.1 from 7.2 yesterday his BUN increased to 96 from 91 yesterday. Spoke to the patient regarding this and he agreed to have his dialysis performed today, hopefully his labs will improve after dialysis. His WBC did decrease to 15.8 from 17.5 yesterday. Patient had a popliteal nerve block for pain management perform yesterday night by the anesthesiologist he still says that the pain is only 30% resolved. Dr. Vizcaino the Infectious Disease specialist saw the patient today and recommended to continue vancomycin and levofloxacin. He is also scheduled for CTA of the abdomen aorta with runoff to access for any vascular abnormalities and if any cardiovascular interventions needed before surgical intervention. His surgery has been scheduled for tomorrow. 11/09/24: Patient evaluated at bedside with his present. Patient is stable but still in pain. He also had episodes of vomiting even on Zofran. Will consult GI after the patients BKA. The BKA has been scheduled for tomorrow. Patient underwent CTA Chest today as preop, still waiting on the report. Patient has also been started on Zofran 40 mg IV. Continuing patients antibiotics of vancomycin and levofloxacin. Patients labs have improved since he got dialysed yesterday. His Creatine has improved from 8.1 to 6.3 and his Bun has gone down to 56 from 96. 11/10/24: Patient evaluated at bedside with his present. Patient is stable but still in pain. He is scheduled to undergo left BKA surgery in the afternoon. Patient had a CTA ABDAOR - CT ANGIO ABD AORTA W RUNOFF performed yesterday which showed diffuse atherosclerotic changes with multilevel focal occlusions segment of the right superficial femoral artery and the right popliteal artery and the trifurcation vessels. Patient's creatinine went down to 5.0 from 6.3 and BUN to 37 from 56. Patient's went to bring that left foot culture came back positive for Gram-negative rods and Gram-positive cocci resistant to gentamicin and sensitive to vancomycin so continuing the patient on vancomycin and levofloxacin 11/11/24: The patient is postoperative day 1from a left below-knee amputation (BKA). He remains hemodynamically stable with no acute events overnight. He denies nausea or vomiting, is tolerating diet well, and is passing flatus. He continues to report pain, for which he received1 mg of IV Dilaudid. He is currently receiving antibiotic therapy with Levaquin and Zosyn. Hemodialysis was performed today with a net removal of 1.6 L. Pre dialysis labs revealed sodium 131, potassium 5.2, BUN 46, creatinine 6.3, WBC 13.9, hemoglobin 8.2, platelet 172. Repeat laboratory testing is planned for tomorrow morning. The patient was advised to begin gentle flexion and extension exercise of the left knee. The surgical dressing will remain in place for 3 days. We will await further recommendation from the Surgical and Infectious Disease teams. The patient has expressed a strong preference for discharge with home health service and has declined transfer to a nursing home facility for rehabilitation. 11/12/24: The patient is postoperative day 2 from a left below-knee amputation (BKA). He remains hemodynamically stable with no acute events overnight. He denies nausea or vomiting, is tolerating diet well, and is passing flatus. He continues to report pain, for which he received1 mg of IV Dilaudid and 100 mg of gabapentin. He is currently receiving antibiotic therapy with Levaquin and Zosyn. Hemodialysis was performed yesterday with a net removal of 1.6 L. This morning CBC 14.8, hemoglobin 7.4, sodium 137, potassium 4, magnesium 1.8, creatinine 4.4. The patient was advised to begin gentle flexion and extension exercise of the left knee. The surgical dressing will remain in place for 3 days. We will await further recommendation from the Surgical and Infectious Disease teams. Physical therapy consulted. The patient has expressed a strong preference for discharge with home health service and has declined transfer to a nursing home facility for rehabilitation. REVIEW OF SYSTEMS CONSTITUTIONAL: Denies fevers, chills, or night sweats. No unintentional weight loss reported. MUSCULOSKELETAL: Zjqpp-bgv-rjcw amputation on the right. Left lower extremity pos up from BKA. Pain at surgical site. NEUROLOGICAL: Denies headache, amaurosis fugax, motor weakness, sensory deficit, vertigo/spinning sensation, gait abnormalities, or tremors. ENT: No hearing loss, otalgia, otorrhea, rhinitis, rhinorrhea, hoarseness, or sore throat. CARDIOVASCULAR: Denies any exertional angina, dyspnea on exertion, orthopnea, paroxysmal nocturnal dyspnea, palpitations, life-threatening arrhythmias, claudication. PULMONARY: Denies any shortness of breath, cough, phlegm/sputum, hemoptysis, pleuritic chest pain. GASTROINTESTINAL: Denies any type of dysphagia to either liquids or solids. Denies nausea, vomiting, pyrosis, early satiety, abdominal pain, diarrhea, constipation, or changes in stool consistency or caliber. GENITOURINARY: Denies frequency, urgency, nocturia, hematuria or incontinence ENDOCRINOLOGIC: Denies polyuria, polydipsia, polyphagia or heat/cold intolerances. HEMATOLOGIC: Denies thrombophilia/previous clots, or coagulopathy/bleeding disorders. DERMATOLOGIC: Denies rashes or pruritus. PSYCHIATRIC: Denies any suicidal or homicidal ideation. Denies hallucinations. PHYSICAL EXAM GENERAL APPEARANCE: The patient is awake, alert, and oriented, in no acute cardiopulmonary distress. NEUROLOGICAL: Motor is 5/5 in bilateral upper and lower extremities proximal to distal. No sensory deficits. HEENT: Face is symmetric. Pupils are equal and reactive. Extraocular movements are intact. NECK: Supple. No JVD. No thyromegaly. No submental, submandibular, pre- /postauricular, occipital or supraclavicular lymphadenopathy. CHEST: Normal chest expansion. No Telemetry. LUNGS: Absence of any rales, rhonchi or any wheezing. CARDIOVASCULAR: Regular. S1 and S2 normal. No appreciable rubs, murmurs or gallops. ABDOMEN: Soft, nontender, and nondistended. There is no rebound, voluntary guarding, or rigidity. : Deferred. No Hutson. EXTREMITIES: Left lower extremity with surgical dressing in place over BKA site, clean, dry, and intact. Mild postop tenderness. BKA of RLE SKIN: No skin breakdown. Vital Signs (last 8hr) Date Time Temp Pulse Resp B/P (MAP) Pulse Ox O2 Delivery O2 Flow Rate FiO2 11/12/24 12:00 98.1 91 19 127/70 93 Room Air 11/12/24 08:06 98.1 89 19 134/77 92 Room Air LABS: Laboratory: Test 11/12/24 10:56 11/12/24 05:18 11/11/24 05:19 11/11/24 05:18 Range/Units Whole Blood Glucose 176 H 70-110 MG/DL White Blood Count 14.8 H 4.8-10.8 K/uL Red Blood Count 2.47 L 4.50-6.20 MIL/uL Hemoglobin 7.4 L 14.0-18.0 g/dL Hematocrit 23.8 L 42-54 % Mean Corpuscular Volume 96.4 79-99 fL Mean Corpuscular Hemoglobin 30.0 27.0-33.0 pg Mean Corpuscular Hemoglobin Concent 31.1 L 32.0-36.0 g/dL Red Cell Distribution Width 15.2 11.0-15.5 % Platelet Count 179 130-400 K/uL Mean Platelet Volume 10.7 H 7.5-10.5 fL Immature Granulocyte % (Auto) 0.9 0-1 % Neutrophils (%) (Auto) 81.8 H 40.0-77.0 % Lymphocytes (%) (Auto) 11.8 L 21.0-51.0 % Monocytes (%) (Auto) 4.9 3.0-13.0 % Eosinophils (%) (Auto) 0.5 0.0-8.0 % Basophils (%) (Auto) 0.1 0.0-5.0 % Neutrophils # (Auto) 12.1 H 1.8-7.7 K/uL Lymphocytes # (Auto) 1.7 1.0-4.8 K/uL Monocytes # (Auto) 0.7 0.1-1.0 K/uL Eosinophils # (Auto) 0.07 0.00-0.70 K/uL Basophils # (Auto) 0.01 0.00-0.20 K/uL Absolute Immature Granulocyte (auto 0.13 0-1 K/uL Nucleated Red Blood Cells 0.0 0.0-0.19 % Sodium Level 137 136-145 mmol/L Potassium Level 4.0 3.5-5.1 mmol/L Chloride Level 99 L 101-111 mmol/L Carbon Dioxide Level 32 21-32 mmol/L Blood Urea Nitrogen 32 H 7-18 mg/dL Creatinine 4.4 H 0.5-1.3 mg/dL Glomerular Filtration Rate Calc 15 >90 mL/min Random Glucose 179 H 70-105 mg/dL Total Calcium 7.8 L 8.5-10.1 mg/dL Phosphorus Level 5.0 H 2.5-4.9 mg/dL Magnesium Level 1.80 1.80-2.40 mg/dL Total Bilirubin 0.4 # 0.2-1.0 mg/dL Aspartate Amino Transf (AST/SGOT) 10 10-37 U/L Alanine Aminotransferase (ALT/SGPT) < 6 L 12-78 U/L Alkaline Phosphatase 100 50-136 U/L Total Protein 5.7 L 6.0-8.3 g/dL Albumin 1.8 L 3.5-5.0 g/dL Vancomycin Level 24.7 20.0-30.0 mcg/mL Bedside Glucose Comment Notified Nurse Current Medications Medications (Trade) Dose Ordered Sig/Idania Route PRN Reason Start Time Stop Time Status Last Admin Dose Admin Acetaminophen/ Hydrocodone Bitart (NORco 5/325MG) 1 tab Q4H PRN PO MODERATE PAIN (4-6) 11/06/24 13:30 11/07/24 01:21 DC Acetaminophen/ Hydrocodone Bitart (NORco 5/325MG) 2 tab Q4H PRN PO SEVERE PAIN (7-10) 11/06/24 13:30 11/07/24 01:21 DC 11/06/24 22:09 2 TAB Acetaminophen/ Hydrocodone Bitart (NORco 5/325MG) 2 tab Q8H PO 11/07/24 13:00 11/07/24 13:45 DC Acetaminophen/ Hydrocodone Bitart (NORco 5/325MG) 2 tab Q8H PRN PO PAIN LEVEL 7 TO 10 11/07/24 14:00 11/07/24 13:57 DC Acetaminophen/ Hydrocodone Bitart (NORco 5/325MG) 2 tab Q8H PRN PO MODERATE PAIN (4-6) 11/07/24 18:30 11/12/24 18:29 11/12/24 08:50 2 TAB Atorvastatin Calcium (LIPItor 40MG) 40 mg HS PO 11/06/24 21:00 12/06/24 20:59 11/11/24 20:32 40 MG Dextrose (D50w) 50 ml AD PRN IV HYPOGLYCEMIA PROTOCOL 11/06/24 14:30 12/06/24 14:29 11/10/24 13:43 25 ML Enoxaparin Sodium (Lovenox) 30 mg DAILY SQ 11/07/24 09:00 12/07/24 08:59 11/12/24 08:41 30 MG Famotidine (Pepcid 20mg Tab) 20 mg QTUTHSA@2100 PO 11/06/24 21:00 11/09/24 11:34 DC 11/06/24 21:10 20 MG Glucagon (Glucagon 1mg Kit) 1 mg AD PRN IM HYPOGLYCEMIA PROTOCOL 11/06/24 14:30 12/06/24 14:29 Heparin Sodium (Porcine) (HEParin 5,000 UNIT VIAL) 10,000 unit AD IRRIG 11/08/24 15:00 12/08/24 14:59 11/11/24 11:22 10,000 UNIT Hydromorphone HCl (DiLAUDid 1MG INJ) 1 mg Q4H PRN IVP SEVERE PAIN (7-10) 11/07/24 08:00 11/12/24 07:59 DC 11/12/24 02:15 1 MG Hydromorphone HCl (DiLAUDid 1MG INJ) 1 mg Q4H PRN IVP SEVERE PAIN (7-10) 11/12/24 09:00 11/17/24 08:59 11/12/24 10:26 1 MG Insulin Glargine (LANtus 100 UNITS/ML 10 ML VIAL) 10 units HS SQ 11/06/24 21:00 11/07/24 11:22 DC 11/06/24 21:15 10 UNITS Insulin Human Regular (humuLIN R 100 UNIT/ML 3ML) INSULIN SLIDING SCAL... ACHS SQ 11/06/24 16:30 12/06/24 16:29 11/11/24 20:33 4 UNIT [facility]um [facility] ([facility]) 1 APPL DAILY16 TP 11/07/24 16:00 12/07/24 15:59 11/11/24 16:08 1 APPL Levofloxacin/ Dextrose (LEvaquIN 500 MG/ D5W 100 ML) 500 mg Q48H IV 11/06/24 16:00 11/27/24 15:59 11/11/24 01:19 500 MG Lidocaine (Lidoderm Patch 5%) 1 patch DAILY TP 11/09/24 20:00 12/09/24 19:59 11/12/24 08:41 1 PATCH Morphine Sulfate (morPHINE 2MG SYG) 2 mg Q4H PRN IVP SEVERE PAIN (7-10) 11/07/24 01:30 11/07/24 08:00 DC 11/07/24 02:34 2 MG Nifedipine (adALAT 30MG) 60 mg Q24H PO 11/06/24 14:30 12/06/24 14:29 11/06/24 15:48 60 MG Ondansetron HCl (zoFRAN 4MG INJ) 4 mg Q6H PRN IVP NAUSEA/VOMITING 11/07/24 19:30 12/07/24 19:29 11/09/24 11:33 4 MG Pantoprazole Sodium (PROTonix 40MG INJ) 40 mg DAILY IVP 11/10/24 09:00 12/10/24 08:59 11/12/24 08:41 40 MG Pantoprazole Sodium (PROTonix 40MG INJ) 40 mg DAILY IVP 11/10/24 09:00 12/10/24 08:59 UNV Pharmacy Profile Note (Lace Assessment) 1 each AD MISC 11/07/24 11:30 11/07/24 11:35 DC Sevelamer HCl (RENAgel 800 MG TAB) 400 mg TIDMEALS PO 11/09/24 12:00 12/09/24 11:59 11/12/24 11:58 400 MG Sodium Chloride 1,000 ml @ 0 mls/hr ONCE IV 11/08/24 15:00 12/08/24 14:59 11/11/24 09:45 1,000 MLS/HR Tramadol HCl (UltRAM) 50 mg Q6H PRN PO MODERATE PAIN (4-6) 11/07/24 01:30 11/07/24 18:09 DC Vancomycin HCl 250 ml @ 166.667 mls/hr QTUSA IV 11/07/24 09:00 11/06/24 13:22 DC Vancomycin HCl 250 ml @ 166.667 mls/hr QTUTHSA[DIALYSIS] IV 11/07/24 16:00 11/11/24 06:25 DC 11/09/24 15:44 166.667 MLS/HR Vancomycin HCl (Vancomycin 750mg) 750 mg QTUTHSA[DIALYSIS] IVPB 11/11/24 16:00 12/02/24 15:59 11/11/24 16:08 750 MG Vancomycin HCl (Vancomycin Protocol) 1 each AD IV 11/06/24 13:30 11/20/24 13:29 DIAGNOSTICS / RADIOLOGY: [ ] ASSESSMENT: Sepsis POA Left foot gangrene Postoperative day left below-knee amputation ESRD on dialysis T, Th, S POA Uncontrolled DM II Chronic anemia with anemia of renal disease POA History of chronic corticosteroid use as outpatient with the prednisolone POA Psoriatic POA Uncontrolled hypertension POA PAD POA Recent history of hospitalization [facility] for infected right BKA stump with osteomyelitis on IV antibiotics outpatient Recent Cultures wound positive for MRSA and MDRO E coli Recent history of right BKA site debridement 07/21/2024 followed by delayed primary closure on 07/24/[address] Montes PLAN: Sepsis POA * patient improving with the antibiotics he has been receiving * Continue patient on vancomycin and levofloxacin due to penicillin and sulfa allergy * Monitor for clinical signs of infection * We will follow recommendations from Infectious Disease. Post operative day 2 left below-knee amputation (BKA) * Patient stable with no postop complications overnight * Continue to monitor surgical site, dressing to remain in place for3 days * Encourage left knee flexion and extension exercises to preserve joint mobility * Await surgical team's recommendations * Continue patient on pain medication * Physical therapy consulted. ESRD on dialysis T, Th, S POA * Patient underwent dialysis yesterday and his creatinine and BUN are doing much better ATTESTATION BY PHYSICIAN I have seen and examined the patient. I reviewed the documentation, medical decision making, and treatment plan as noted by the resident provider above. I agree with the findings and plan of care. Elan Riley MD, SUNIL MD Nov 12, 2024 15:48
--- NOTE | 2024-11-12 22:34 | PN ---
INFECTIOUS DISEASE PROGRESS NOTE Date of Service: Nov 12, 2024 SUBJECTIVE: Patient was seen and examined at bedside in room 318. Patient is status post left oopau-tjt-cjeo amputation on 11/10/2024. Still pending physical therapy evaluation. Patient does not want to go to a facility for rehab and requesting for physical therapy to be done at home. We will have case management evaluate for referral for home physical therapy. Patient is afebrile, temperature is 98.1. Will continue on vancomycin per pharmacy protocol and levofloxacin IV. No reports of nausea or vomiting. PHYSICAL EXAM EYES: Anicteric. Pupils equal and reactive. HENT: No oral thrush seen, moist Oral mucosa. NECK: Supple, no JVD or thyromegaly. LUNGS: Good air entry. No rales, no rhonchi. CARDIOVASCULAR: S1, S2 regular. No murmur heard. ABDOMEN: Soft, non tender, bowel sounds present, no organomegaly. CENTRAL NERVOUS SYSTEM: Awake, alert, oriented x 3. SKIN: No rashes, no swelling. LYMPHATICS: No peripheral lymphadenopathy MUSCULOSKELETAL: No joint swelling, erythema or tenderness. Left foot diabetic ulcer with gangrene, s/p left djcci-bdw-fuqm amputation on 11/10/2024. History of Right ezxro-qsc-zrkk amputation. EXTREMITIES: No cyanosis or clubbing. BACK: No deformity, no pressure ulcer. GENITOURINARY: No dysuria or hematuria. Vital Sign (Last 12 Hours) 11/12/24 11/12/24 11/12/24 11/12/24 12:00 16:00 19:00 19:10 Temp 98.1 97.7 97.9 Pulse 91 86 91 Resp 19 19 18 B/P (MAP) 127/70 149/74 131/76 Pulse Ox 93 93 98 98 O2 Delivery Room Air Room Air Room Air Room Air* O2 Flow Rate 0 FiO2 21 Intake & Output (last 24hrs) 11/11/24 11/11/24 11/12/24 15:00 23:00 07:00 Intake Total 600 ml 300 ml Output Total 1600 ml Balance -1000 ml 300 ml LABS: Laboratory: Test 11/12/24 20:10 11/12/24 05:18 11/11/24 05:19 Range/Units Whole Blood Glucose 197 H 70-110 MG/DL Bedside Glucose Comment Notified Nurse White Blood Count 14.8 H 4.8-10.8 K/uL Red Blood Count 2.47 L 4.50-6.20 MIL/uL Hemoglobin 7.4 L 14.0-18.0 g/dL Hematocrit 23.8 L 42-54 % Mean Corpuscular Volume 96.4 79-99 fL Mean Corpuscular Hemoglobin 30.0 27.0-33.0 pg Mean Corpuscular Hemoglobin Concent 31.1 L 32.0-36.0 g/dL Red Cell Distribution Width 15.2 11.0-15.5 % Platelet Count 179 130-400 K/uL Mean Platelet Volume 10.7 H 7.5-10.5 fL Immature Granulocyte % (Auto) 0.9 0-1 % Neutrophils (%) (Auto) 81.8 H 40.0-77.0 % Lymphocytes (%) (Auto) 11.8 L 21.0-51.0 % Monocytes (%) (Auto) 4.9 3.0-13.0 % Eosinophils (%) (Auto) 0.5 0.0-8.0 % Basophils (%) (Auto) 0.1 0.0-5.0 % Neutrophils # (Auto) 12.1 H 1.8-7.7 K/uL Lymphocytes # (Auto) 1.7 1.0-4.8 K/uL Monocytes # (Auto) 0.7 0.1-1.0 K/uL Eosinophils # (Auto) 0.07 0.00-0.70 K/uL Basophils # (Auto) 0.01 0.00-0.20 K/uL Absolute Immature Granulocyte (auto 0.13 0-1 K/uL Nucleated Red Blood Cells 0.0 0.0-0.19 % Sodium Level 137 136-145 mmol/L Potassium Level 4.0 3.5-5.1 mmol/L Chloride Level 99 L 101-111 mmol/L Carbon Dioxide Level 32 21-32 mmol/L Blood Urea Nitrogen 32 H 7-18 mg/dL Creatinine 4.4 H 0.5-1.3 mg/dL Glomerular Filtration Rate Calc 15 >90 mL/min Random Glucose 179 H 70-105 mg/dL Total Calcium 7.8 L 8.5-10.1 mg/dL Phosphorus Level 5.0 H 2.5-4.9 mg/dL Magnesium Level 1.80 1.80-2.40 mg/dL Total Bilirubin 0.4 # 0.2-1.0 mg/dL Aspartate Amino Transf (AST/SGOT) 10 10-37 U/L Alanine Aminotransferase (ALT/SGPT) < 6 L 12-78 U/L Alkaline Phosphatase 100 50-136 U/L Total Protein 5.7 L 6.0-8.3 g/dL Albumin 1.8 L 3.5-5.0 g/dL Vancomycin Level 24.7 20.0-30.0 mcg/mL ASSESSMENT: Left foot diabetic ulcer with gangrene and osteomyelitis, status post left fbepa-ekd-esoa amputation on 11/10/2024. Sepsis, resolving. Leukocytosis, improving. End-stage renal disease, on dialysis. Diabetes mellitus. Anemia with a history of blood transfusion. Psoriasis. PLAN: Continue vancomycin per pharmacy protocol. Continue levofloxacin. Continue dialysis as recommended by cage/vault supervisor. Continue pain management. Continue wound care. Pending physical therapy evaluation. Case management to evaluate for home PT referral. This case was reviewed and discussed with my supervising physician and the above assessment and plan was formulated and agreed upon. ATTESTATION BY PHYSICIAN I have seen and examined the patient. I reviewed the documentation, medical decision making, and treatment plan as noted by the mid-level provider above. I agree with the findings and plan of care. ENEDELIA GUAMAN MD, MIRTA L [facility] Nov 12, 2024 22:34
[2024-11-13] VITALS (9 sets, daily range): BP systolic 112–154; BP diastolic 58–95; PULSE 90–101; RESP 18–19; TEMP 97.6–98.9; O2SAT 89–98
[2024-11-13 05:56] LABS: IMMATURE GRANULOCYTE ABSOLUTE 0.13 K/uL (0-1); NUCLEATED RED BLOOD CELLS 0.0 % (0.0-0.19); PLATELET COUNT (AUTO) 186 K/uL (130-400); RED BLOOD CELL COUNT(AUTO) 2.36 MIL/uL (4.50-6.20); RED CELL DISTRIBUTION WIDTH 15.1 % (11.0-15.5); WHITE BLOOD COUNT (AUTO) 10.1 K/uL (4.8-10.8)
[2024-11-13 06:10] LABS: ASPARTATE AMINOTRANSFERASE 10 U/L (10-37); CREATININE 6.0 mg/dL (0.5-1.3); GLOMERULAR FILTR. RATE CALC 10 mL/min (>90); GLUCOSE,RANDOM 133 mg/dL (70-105); SODIUM SERUM 138 mmol/L (136-145); TOTAL PROTEIN, SERUM 5.4 g/dL (6.0-8.3); UREA NITROGEN, BLOOD 43 mg/dL (7-18)
--- NOTE | 2024-11-13 10:06 | PN ---
This is a 59-year-old male postop day three for left BKA Interval history: This 59-year-old male seen in his room resting Left BKA site examined with no acute concerns noted No signs of necrosis or ischemia Patient's pain still needing better control Patient continues IV fluids and IV antibiotics Physical exam General: Awake alert and oriented Heart: Regular rate and rhythm} Lungs: Clear to auscultation no distress Abdomen: [Soft, nontender, nondistended Left and right BKA Assessment : This is a 59-year-old male status post left BKA Plan: From surgical standpoint patient is cleared for discharge once pain control better managed Patient to work with physical therapy Nursing to re bandaged with Xeroform and Giuseppe wrapping Follow up in two weeks with Dr. Jordan is office Dr. Jordan has been updated in patient's status and surgical team to be updated with any further acute events Vitals/Labs Vital Signs Date Time Temp Pulse Resp B/P (MAP) Pulse Ox O2 Delivery O2 Flow Rate FiO2 11/13/24 08:00 99.0 95 18 136/95 89 Room Air 21 11/12/24 19:10 0 Laboratory Tests 11/13/24 05:37 Medications Current Medications Vancomycin HCl 1 gm ONCE ONCE IV; Start 11/06/24 at 12:00; Stop 11/06/24 at 12:01; Status DC Levofloxacin 750 mg ONCE ONCE PO; Start 11/06/24 at 12:00; Stop 11/06/24 at 12:01; Status DC Morphine Sulfate 4 mg ONCE ONCE IVP Last administered on 11/06/24at 13:48; Start 11/06/24 at 12:00; Stop 11/06/24 at 12:01; Status DC Levofloxacin/ Dextrose 500 mg Q48H IV Last administered on 11/12/24at 17:11; Start 11/06/24 at 16:00; Stop 11/27/24 at 15:59 Vancomycin HCl 1 gm ONCE ONCE IV Last administered on 11/06/24at 13:48; Start 11/06/24 at 13:00; Stop 11/06/24 at 13:11; Status DC Vancomycin HCl 250 ml @ 166.667 mls/hr QTUSA IV; Start 11/07/24 at 09:00; Stop 11/06/24 at 13:22; Status DC Vancomycin HCl 1 each AD IV; Start 11/06/24 at 13:30; Stop 11/20/24 at 13:29 Vancomycin HCl 250 ml @ 166.667 mls/hr QTUTHSA[DIALYSIS] IV Last administered on 11/09/24at 15:44; Start 11/07/24 at 16:00; Stop 11/11/24 at 06:25; Status DC Famotidine 20 mg QTUTHSA@2100 PO Last administered on 11/06/24at 21:10; Start 11/06/24 at 21:00; Stop 11/09/24 at 11:34; Status DC Enoxaparin Sodium 30 mg DAILY SQ Last administered on 11/13/24at 08:42; Start 11/07/24 at 09:00; Stop 12/07/24 at 08:59 Acetaminophen/ Hydrocodone Bitart 1 tab Q4H PRN PO; Start 11/06/24 at 13:30; Stop 11/07/24 at 01:21; Status DC Acetaminophen/ Hydrocodone Bitart 2 tab Q4H PRN PO Last administered on 11/06/24at 22:09; Start 11/06/24 at 13:30; Stop 11/07/24 at 01:21; Status DC Insulin Glargine 10 units HS SQ Last administered on 11/06/24at 21:15; Start 11/06/24 at 21:00; Stop 11/07/24 at 11:22; Status DC Insulin Human Regular INSULIN SLIDING SCAL... ACHS SQ Last administered on 11/12/24at 21:17; Start 11/06/24 at 16:30; Stop 12/06/24 at 16:29 Atorvastatin Calcium 40 mg HS PO Last administered on 11/12/24at 21:11; Start 11/06/24 at 21:00; Stop 12/06/24 at 20:59 Nifedipine 60 mg Q24H PO Last administered on 11/06/24at 15:48; Start 11/06/24 at 14:30; Stop 12/06/24 at 14:29 Dextrose 50 ml AD PRN IV Last administered on 11/10/24at 13:43; Start 11/06/24 at 14:30; Stop 12/06/24 at 14:29 Glucagon 1 mg AD PRN IM; Start 11/06/24 at 14:30; Stop 12/06/24 at 14:29 Morphine Sulfate 2 mg Q4H PRN IVP Last administered on 11/07/24at 02:34; Start 11/07/24 at 01:30; Stop 11/07/24 at 08:00; Status DC Tramadol HCl 50 mg Q6H PRN PO; Start 11/07/24 at 01:30; Stop 11/07/24 at 18:09; Status DC Hydromorphone HCl 1 mg Q4H PRN IVP Last administered on 11/12/24at 02:15; Start 11/07/24 at 08:00; Stop 11/12/24 at 07:59; Status DC Pharmacy Profile Note 1 each AD MISC; Start 11/07/24 at 11:30; Stop 11/07/24 at 11:35; Status DC Hydromorphone HCl 1.5 mg ONCE ONCE IVP Last administered on 11/07/24at 12:01; Start 11/07/24 at 11:30; Stop 11/07/24 at 11:37; Status DC Acetaminophen/ Hydrocodone Bitart 2 tab Q8H PO; Start 11/07/24 at 13:00; Stop 11/07/24 at 13:45; Status DC Acetaminophen/ Hydrocodone Bitart 2 tab Q8H PRN PO; Start 11/07/24 at 14:00; Stop 11/07/24 at 13:57; Status DC Leptospermum Honey 1 APPL DAILY16 TP Last administered on 11/12/24at 17:11; Start 11/07/24 at 16:00; Stop 12/07/24 at 15:59 Acetaminophen/ Hydrocodone Bitart 2 tab Q8H PRN PO Last administered on 11/12/24at 08:50; Start 11/07/24 at 18:30; Stop 11/12/24 at 18:29; Status DC Ondansetron HCl 4 mg Q6H PRN IVP Last administered on 11/09/24at 11:33; Start 11/07/24 at 19:30; Stop 12/07/24 at 19:29 Ropivacaine 150 mg STK-MED ONCE .ROUTE; Start 11/07/24 at 20:54; Stop 11/07/24 at 20:54; Status DC Ondansetron HCl 4 mg STK-MED ONCE .ROUTE; Start 11/07/24 at 21:04; Stop 11/07/24 at 21:04; Status DC Fentanyl Citrate 100 mcg STK-MED ONCE .ROUTE; Start 11/07/24 at 21:04; Stop 11/07/24 at 21:04; Status DC Sodium Chloride 1,000 ml @ 0 mls/hr ONCE IV Last administered on 11/11/24at 09:45; Start 11/08/24 at 15:00; Stop 12/08/24 at 14:59 Heparin Sodium (Porcine) 10,000 unit AD IRRIG Last administered on 11/11/24at 11:22; Start 11/08/24 at 15:00; Stop 12/08/24 at 14:59 Sevelamer HCl 400 mg TIDMEALS PO Last administered on 11/13/24at 08:41; Start 11/09/24 at 12:00; Stop 12/09/24 at 11:59 Pantoprazole Sodium 40 mg ONCE ONCE IVP Last administered on 11/09/24at 11:39; Start 11/09/24 at 12:00; Stop 11/09/24 at 12:01; Status DC Pantoprazole Sodium 40 mg DAILY IVP Last administered on 11/13/24at 08:40; Start 11/10/24 at 09:00; Stop 12/10/24 at 08:59 Diazepam 5 mg ONCE ONCE IVP Last administered on 11/09/24at 12:05; Start 11/09/24 at 12:00; Stop 11/09/24 at 12:01; Status DC Pantoprazole Sodium 40 mg DAILY IVP; Start 11/10/24 at 09:00; Stop 12/10/24 at 08:59; Status UNV Iohexol 75 ml STK-MED ONCE IV; Start 11/09/24 at 12:23; Stop 11/09/24 at 12:29; Status DC Iohexol 75 ml STK-MED ONCE IV; Start 11/09/24 at 12:24; Stop 11/09/24 at 12:29; Status DC Lidocaine 1 patch DAILY TP Last administered on 11/13/24at 08:40; Start 11/09/24 at 20:00; Stop 12/09/24 at 19:59 Dextrose 50 ml STK-MED ONCE IV; Start 11/10/24 at 13:42; Stop 11/10/24 at 13:42; Status DC Propofol 200 mg STK-MED ONCE IV; Start 11/10/24 at 14:16; Stop 11/10/24 at 14:16; Status DC Ketamine HCl 50 mg STK-MED ONCE .ROUTE; Start 11/10/24 at 14:16; Stop 11/10/24 at 14:16; Status DC Levofloxacin/ Dextrose 100 ml @ As Directed STK-MED ONCE .ROUTE; Start 11/10/24 at 15:56; Stop 11/10/24 at 15:57; Status DC Albumin Human 250 ml @ As Directed STK-MED ONCE IV; Start 11/10/24 at 16:19; Stop 11/10/24 at 16:19; Status DC Dexamethasone Sodium Phosphate 4 mg STK-MED ONCE .ROUTE; Start 11/10/24 at 14:07; Stop 11/11/24 at 04:52; Status DC Lidocaine HCl 100 mg STK-MED ONCE .ROUTE; Start 11/10/24 at 14:07; Stop 11/11/24 at 04:52; Status DC Ropivacaine 150 mg STK-MED ONCE .ROUTE; Start 11/10/24 at 14:07; Stop 11/11/24 at 04:52; Status DC Midazolam HCl 2 mg STK-MED ONCE .ROUTE; Start 11/10/24 at 14:07; Stop 11/11/24 at 04:52; Status DC Ondansetron HCl 4 mg STK-MED ONCE .ROUTE; Start 11/10/24 at 14:07; Stop 11/11/24 at 04:52; Status DC Rocuronium [place] 50 mg STK-MED ONCE .ROUTE; Start 11/10/24 at 14:07; Stop 11/11/24 at 04:52; Status DC Fentanyl Citrate 100 mcg STK-MED ONCE .ROUTE; Start 11/10/24 at 14:08; Stop 11/11/24 at 04:52; Status DC Phenylephrine HCl 10 mg STK-MED ONCE IV; Start 11/10/24 at 17:01; Stop 11/11/24 at 04:52; Status DC Glycopyrrolate 1 mg STK-MED ONCE .ROUTE; Start 11/10/24 at 18:21; Stop 11/11/24 at 04:52; Status DC Neostigmine Methylsulfate 10 mg STK-MED ONCE IV; Start 11/10/24 at 18:21; Stop 11/11/24 at 04:52; Status DC Vancomycin HCl 750 mg QTUTHSA[DIALYSIS] IVPB Last administered on 11/11/24at 16:08; Start 11/11/24 at 16:00; Stop 12/02/24 at 15:59 Hydromorphone HCl 1 mg Q4H PRN IVP Last administered on 11/13/24at 08:42; Start 11/12/24 at 09:00; Stop 11/17/24 at 08:59 Sennosides 1 tab ONCE ONCE PO Last administered on 11/12/24at 11:58; Start 11/12/24 at 11:00; Stop 11/12/24 at 11:03; Status DC Gabapentin 100 mg ONCE ONCE PO Last administered on 11/12/24at 13:50; Start 11/12/24 at 13:30; Stop 11/12/24 at 13:31; Status DC Gabapentin 100 mg TID PO Last administered on 11/13/24at 08:41; Start 11/12/24 at 21:00; Stop 12/12/24 at 20:59 SILVERIO BOWEN Jr. Nov 13, 2024 10:06
--- NOTE | 2024-11-13 12:52 | PN ---
[facility] PROGRESS NOTE Date of Service: Nov 13, 2024 Time of Service: 12:51 SUBJECTIVE: 11/07/24: Patient evaluated at bedside with family present. Patient was in pain in his left leg. Patient was given 1 mg of Dilaudid 30 minutes before but he wa s still in pain. Given the patient's persistent high pain score, with ESRD and stable clinical status (alert, oriented, respiratory rate and O2 saturation within normal limits) an increased dose of 1.5 mg IV hydromorphone was ordered for more effective pain control. We will monitor for efficacy and signs of over- sedation. Patient stable with temperature at 98.1 pulse 103, respiratory rate 21, blood pressure 133/88 and the pulse ox of 95 on room air. His labs today showed his WBC dropping to 17.5 from 21.9 yesterday, his hemoglobin also dropped to 8.5 from 9.0. Patient's creatinine was at 7.2 and BUN at 91 he is due for dialysis today. The wardrobe attendant Dr. Jackson saw him today in the morning and assess that he has wet gangrene to the left forefoot and a necrotic left heel ulcer, he also has nonoperable peripheral vascular disease and has ischemic rest pain. He also mentioned that the patient is a candidate for a pizjk-aqf-rfgk amputation. He may Brittni reviewed by Dr. Jordan, who is the surgeon. From surgical standpoint they ordered CTA of the abdomen aorta with runoff to access for any vascular abnormalities and if any cardiovascular interventions needed before surgical intervention. Patient is likely to be scheduled for left BKA by Dr. Jordan. Patient was made aware of the plan and he agrees. 11/08/24: Patient evaluated bedside without his family present. Patient was still in pain in his left leg after being given 1.5 mg Dilaudid. Patient refused dialysis yesterday because of his pain so today his creatinine increased to 8.1 from 7.2 yesterday his BUN increased to 96 from 91 yesterday. Spoke to the patient regarding this and he agreed to have his dialysis performed today, hopefully his labs will improve after dialysis. His WBC did decrease to 15.8 from 17.5 yesterday. Patient had a popliteal nerve block for pain management perform yesterday night by the anesthesiologist he still says that the pain is only 30% resolved. Dr. Vizcaino the Infectious Disease specialist saw the patient today and recommended to continue vancomycin and levofloxacin. He is also scheduled for CTA of the abdomen aorta with runoff to access for any vascular abnormalities and if any cardiovascular interventions needed before surgical intervention. His surgery has been scheduled for tomorrow. 11/09/24: Patient evaluated at bedside with his present. Patient is stable but still in pain. He also had episodes of vomiting even on Zofran. Will consult GI after the patients BKA. The BKA has been scheduled for tomorrow. Patient underwent CTA Chest today as preop, still waiting on the report. Patient has also been started on Zofran 40 mg IV. Continuing patients antibiotics of vancomycin and levofloxacin. Patients labs have improved since he got dialysed yesterday. His Creatine has improved from 8.1 to 6.3 and his Bun has gone down to 56 from 96. 11/10/24: Patient evaluated at bedside with his present. Patient is stable but still in pain. He is scheduled to undergo left BKA surgery in the afternoon. Patient had a CTA ABDAOR - CT ANGIO ABD AORTA W RUNOFF performed yesterday which showed diffuse atherosclerotic changes with multilevel focal occlusions segment of the right superficial femoral artery and the right popliteal artery and the trifurcation vessels. Patient's creatinine went down to 5.0 from 6.3 and BUN to 37 from 56. Patient's went to bring that left foot culture came back positive for Gram-negative rods and Gram-positive cocci resistant to gentamicin and sensitive to vancomycin so continuing the patient on vancomycin and levofloxacin 11/11/24: The patient is postoperative day 1from a left below-knee amputation (BKA). He remains hemodynamically stable with no acute events overnight. He denies nausea or vomiting, is tolerating diet well, and is passing flatus. He continues to report pain, for which he received1 mg of IV Dilaudid. He is currently receiving antibiotic therapy with Levaquin and Zosyn. Hemodialysis was performed today with a net removal of 1.6 L. Pre dialysis labs revealed sodium 131, potassium 5.2, BUN 46, creatinine 6.3, WBC 13.9, hemoglobin 8.2, platelet 172. Repeat laboratory testing is planned for tomorrow morning. The patient was advised to begin gentle flexion and extension exercise of the left knee. The surgical dressing will remain in place for 3 days. We will await further recommendation from the Surgical and Infectious Disease teams. The patient has expressed a strong preference for discharge with home health service and has declined transfer to a nursing home facility for rehabilitation. 11/12/24: The patient is postoperative day 2 from a left below-knee amputation (BKA). He remains hemodynamically stable with no acute events overnight. He denies nausea or vomiting, is tolerating diet well, and is passing flatus. He continues to report pain, for which he received1 mg of IV Dilaudid and 100 mg of gabapentin. He is currently receiving antibiotic therapy with Levaquin and Zosyn. Hemodialysis was performed yesterday with a net removal of 1.6 L. This morning CBC 14.8, hemoglobin 7.4, sodium 137, potassium 4, magnesium 1.8, creatinine 4.4. The patient was advised to begin gentle flexion and extension exercise of the left knee. The surgical dressing will remain in place for 3 days. We will await further recommendation from the Surgical and Infectious Disease teams. Physical therapy consulted. The patient has expressed a strong preference for discharge with home health service and has declined transfer to a nursing home facility for rehabilitation. 11/13/24: The patient is postoperative day 3 from a left below-knee amputation (BKA). He remains hemodynamically stable with no acute events overnight. He denies nausea or vomiting, is tolerating diet well, and is passing flatus but no bowel movement yet so we started the patient on lactulose. He continues to report pain, we have discontinued the IV Dilaudid and put him on p.o. hydromorphone and also fentanyl patches. He is currently receiving antibiotic therapy with Levaquin and Zosyn. We are waiting for recommendation from Dr. Vizcaino the infectious disease specialist regarding antibiotics during dis charge. His hemoglobin has dropped to 7 today so we gave him Venofer, we will see if he improves or if he requires transfusion. Hemodialysis will be performed tomorrow. This morning CBC 10.1, hemoglobin 7.0, sodium 138, potassium 4.0, creatinine 6.0. The patient was advised to begin gentle flexion and extension exercise of the left knee. The surgical dressing will remain in place for 3 days. Placed a PT evaluation to make sure he can transfer from bed to wheelchair. We are also waiting on the surgeon's recommendation for wound care. Once the above orders have been completed the patient can be discharged home with home health service. The patient has expressed a strong preference for discharge with home health service and has declined transfer to a nursing home facility for rehabilitation. REVIEW OF SYSTEMS CONSTITUTIONAL: Denies fevers, chills, or night sweats. No unintentional weight loss reported. MUSCULOSKELETAL: Vdgnb-ibj-lmvl amputation on the right. Left lower extremity pos up from BKA. Pain at surgical site. NEUROLOGICAL: Denies headache, amaurosis fugax, motor weakness, sensory deficit, vertigo/spinning sensation, gait abnormalities, or tremors. ENT: No hearing loss, otalgia, otorrhea, rhinitis, rhinorrhea, hoarseness, or sore throat. CARDIOVASCULAR: Denies any exertional angina, dyspnea on exertion, orthopnea, p aroxysmal nocturnal dyspnea, palpitations, life-threatening arrhythmias, claudication. PULMONARY: Denies any shortness of breath, cough, phlegm/sputum, hemoptysis, pleuritic chest pain. GASTROINTESTINAL: Denies any type of dysphagia to either liquids or solids. Denies nausea, vomiting, pyrosis, early satiety, abdominal pain, diarrhea, constipation, or changes in stool consistency or caliber. GENITOURINARY: Denies frequency, urgency, nocturia, hematuria or incontinence ENDOCRINOLOGIC: Denies polyuria, polydipsia, polyphagia or heat/cold intolerances. HEMATOLOGIC: Denies thrombophilia/previous clots, or coagulopathy/bleeding disorders. DERMATOLOGIC: Denies rashes or pruritus. PSYCHIATRIC: Denies any suicidal or homicidal ideation. Denies hallucinations. PHYSICAL EXAM GENERAL APPEARANCE: The patient is awake, alert, and oriented, in no acute cardiopulmonary distress. NEUROLOGICAL: Motor is 5/5 in bilateral upper and lower extremities proximal to distal. No sensory deficits. HEENT: Face is symmetric. Pupils are equal and reactive. Extraocular movements are intact. NECK: Supple. No JVD. No thyromegaly. No submental, submandibular, pre- /postauricular, occipital or supraclavicular lymphadenopathy. CHEST: Normal chest expansion. No Telemetry. LUNGS: Absence of any rales, rhonchi or any wheezing. CARDIOVASCULAR: Regular. S1 and S2 normal. No appreciable rubs, murmurs or gallops. ABDOMEN: Soft, nontender, and nondistended. There is no rebound, voluntary guarding, or rigidity. : Deferred. No Hutson. EXTREMITIES: Left lower extremity with surgical dressing in place over BKA site, clean, dry, and intact. Mild postop tenderness. BKA of RLE SKIN: No skin breakdown. Vital Signs (last 8hr) Date Time Temp Pulse Resp B/P (MAP) Pulse Ox O2 Delivery O2 Flow Rate FiO2 11/13/24 12:01 97.5 96 19 127/76 78 Room Air 21 11/13/24 08:40 89 Room Air* 0 21 11/13/24 08:00 99.0 95 18 136/95 89 Room Air 21 LABS: Laboratory: Test 11/13/24 11:21 11/13/24 05:37 11/12/24 05:18 Range/Units Whole Blood Glucose 111 H 70-110 MG/DL Bedside Glucose Comment Notified Nurse White Blood Count 10.1 4.8-10.8 K/uL Red Blood Count 2.36 L 4.50-6.20 MIL/uL Hemoglobin 7.0 *L 14.0-18.0 g/dL Hematocrit 22.8 L 42-54 % Mean Corpuscular Volume 96.6 79-99 fL Mean Corpuscular Hemoglobin 29.7 27.0-33.0 pg Mean Corpuscular Hemoglobin Concent 30.7 L 32.0-36.0 g/dL Red Cell Distribution Width 15.1 11.0-15.5 % Platelet Count 186 130-400 K/uL Mean Platelet Volume 11.3 H 7.5-10.5 fL Immature Granulocyte % (Auto) 1.3 H 0-1 % Neutrophils (%) (Auto) 70.6 40.0-77.0 % Lymphocytes (%) (Auto) 19.9 L 21.0-51.0 % Monocytes (%) (Auto) 5.9 3.0-13.0 % Eosinophils (%) (Auto) 2.1 0.0-8.0 % Basophils (%) (Auto) 0.2 0.0-5.0 % Neutrophils # (Auto) 7.1 1.8-7.7 K/uL Lymphocytes # (Auto) 2.0 1.0-4.8 K/uL Monocytes # (Auto) 0.6 0.1-1.0 K/uL Eosinophils # (Auto) 0.21 0.00-0.70 K/uL Basophils # (Auto) 0.02 0.00-0.20 K/uL Absolute Immature Granulocyte (auto 0.13 0-1 K/uL Nucleated Red Blood Cells 0.0 0.0-0.19 % Red Blood Cell Morphology See comments Sodium Level 138 136-145 mmol/L Potassium Level 4.0 3.5-5.1 mmol/L Chloride Level 100 L 101-111 mmol/L Carbon Dioxide Level 31 21-32 mmol/L Blood Urea Nitrogen 43 H 7-18 mg/dL Creatinine 6.0 H 0.5-1.3 mg/dL Glomerular Filtration Rate Calc 10 >90 mL/min Random Glucose 133 H 70-105 mg/dL Total Calcium 7.2 L 8.5-10.1 mg/dL Total Bilirubin 0.4 0.2-1.0 mg/dL Aspartate Amino Transf (AST/SGOT) 10 10-37 U/L Alanine Aminotransferase (ALT/SGPT) < 6 L 12-78 U/L Alkaline Phosphatase 93 50-136 U/L Total Protein 5.4 L 6.0-8.3 g/dL Albumin 1.7 L 3.5-5.0 g/dL Phosphorus Level 5.0 H 2.5-4.9 mg/dL Magnesium Level 1.80 1.80-2.40 mg/dL Current Medications Medications (Trade) Dose Ordered Sig/Idania Route PRN Reason Start Time Stop Time Status Last Admin Dose Admin Acetaminophen/ Hydrocodone Bitart (NORco 5/325MG) 1 tab Q4H PRN PO MODERATE PAIN (4-6) 11/06/24 13:30 11/07/24 01:21 DC Acetaminophen/ Hydrocodone Bitart (NORco 5/325MG) 2 tab Q4H PRN PO SEVERE PAIN (7-10) 11/06/24 13:30 11/07/24 01:21 DC 11/06/24 22:09 2 TAB Acetaminophen/ Hydrocodone Bitart (NORco 5/325MG) 2 tab Q8H PO 11/07/24 13:00 11/07/24 13:45 DC Acetaminophen/ Hydrocodone Bitart (NORco 5/325MG) 2 tab Q8H PRN PO PAIN LEVEL 7 TO 10 11/07/24 14:00 11/07/24 13:57 DC Acetaminophen/ Hydrocodone Bitart (NORco 5/325MG) 2 tab Q8H PRN PO MODERATE PAIN (4-6) 11/07/24 18:30 11/12/24 18:29 DC 11/12/24 08:50 2 TAB Atorvastatin Calcium (LIPItor 40MG) 40 mg HS PO 11/06/24 21:00 12/06/24 20:59 11/12/24 21:11 40 MG Dextrose (D50w) 50 ml AD PRN IV HYPOGLYCEMIA PROTOCOL 11/06/24 14:30 12/06/24 14:29 11/10/24 13:43 25 ML Enoxaparin Sodium (Lovenox) 30 mg DAILY SQ 11/07/24 09:00 12/07/24 08:59 11/13/24 08:42 30 MG Famotidine (Pepcid 20mg Tab) 20 mg QTUTHSA@2100 PO 11/06/24 21:00 11/09/24 11:34 DC 11/06/24 21:10 20 MG Gabapentin (NEURontin 100 mg CAP) 100 mg TID PO 11/12/24 21:00 12/12/24 20:59 11/13/24 08:41 100 MG Glucagon (Glucagon 1mg Kit) 1 mg AD PRN IM HYPOGLYCEMIA PROTOCOL 11/06/24 14:30 12/06/24 14:29 Heparin Sodium (Porcine) (HEParin 5,000 UNIT VIAL) 10,000 unit AD IRRIG 11/08/24 15:00 12/08/24 14:59 11/11/24 11:22 10,000 UNIT Hydromorphone HCl (DiLAUDid 1MG INJ) 1 mg Q4H PRN IVP SEVERE PAIN (7-10) 11/07/24 08:00 11/12/24 07:59 DC 11/12/24 02:15 1 MG Hydromorphone HCl (DiLAUDid 1MG INJ) 1 mg Q4H PRN IVP SEVERE PAIN (7-10) 11/12/24 09:00 11/13/24 12:19 DC 11/13/24 08:42 1 MG Hydromorphone HCl (DiLAUDid 2MG TAB) 2 mg Q6H PRN PO SEVERE PAIN (7-10) 11/13/24 12:30 11/20/24 12:29 Insulin Glargine (LANtus 100 UNITS/ML 10 ML VIAL) 10 units HS SQ 11/06/24 21:00 11/07/24 11:22 DC 11/06/24 21:15 10 UNITS Insulin Human Regular (humuLIN R 100 UNIT/ML 3ML) INSULIN SLIDING SCAL... ACHS SQ 11/06/24 16:30 12/06/24 16:29 11/12/24 21:17 2 UNIT Lactulose (Constulose 20gm/ 30ml Udcup) 20 gm BID PRN PO CONSTIPATION 11/13/24 12:30 12/13/24 12:29 Leptospermum Honey (Medihoney) 1 APPL DAILY16 TP 11/07/24 16:00 12/07/24 15:59 11/12/24 17:11 1 APPL Levofloxacin/ Dextrose (LEvaquIN 500 MG/ D5W 100 ML) 500 mg Q48H IV 11/06/24 16:00 11/13/24 12:35 DC 11/12/24 17:11 500 MG Lidocaine (Lidoderm Patch 5%) 1 patch DAILY TP 11/09/24 20:00 12/09/24 19:59 11/13/24 08:40 1 PATCH Morphine Sulfate (morPHINE 2MG SYG) 2 mg Q4H PRN IVP SEVERE PAIN (7-10) 11/07/24 01:30 11/07/24 08:00 DC 11/07/24 02:34 2 MG Nifedipine (adALAT 30MG) 60 mg Q24H PO 11/06/24 14:30 12/06/24 14:29 11/06/24 15:48 60 MG Ondansetron HCl (zoFRAN 4MG INJ) 4 mg Q6H PRN IVP NAUSEA/VOMITING 11/07/24 19:30 12/07/24 19:29 11/09/24 11:33 4 MG Pantoprazole Sodium (PROTonix 40MG INJ) 40 mg DAILY IVP 11/10/24 09:00 12/10/24 08:59 11/13/24 08:40 40 MG Pantoprazole Sodium (PROTonix 40MG INJ) 40 mg DAILY IVP 11/10/24 09:00 12/10/24 08:59 UNV Pharmacy Profile Note (Lace Assessment) 1 each AD MISC 11/07/24 11:30 11/07/24 11:35 DC Sevelamer HCl (RENAgel 800 MG TAB) 400 mg TIDMEALS PO 11/09/24 12:00 12/09/24 11:59 11/13/24 08:41 400 MG Sodium Chloride 1,000 ml @ 0 mls/hr ONCE IV 11/08/24 15:00 12/08/24 14:59 11/11/24 09:45 1,000 MLS/HR Tramadol HCl (UltRAM) 50 mg Q6H PRN PO MODERATE PAIN (4-6) 11/07/24 01:30 11/07/24 18:09 DC Vancomycin HCl 250 ml @ 166.667 mls/hr QTUSA IV 11/07/24 09:00 11/06/24 13:22 DC Vancomycin HCl 250 ml @ 166.667 mls/hr QTUTHSA[DIALYSIS] IV 11/07/24 16:00 11/11/24 06:25 DC 11/09/24 15:44 166.667 MLS/HR Vancomycin HCl (Vancomycin 750mg) 750 mg QTUTHSA[DIALYSIS] IVPB 11/11/24 16:00 11/13/24 12:35 DC 11/11/24 16:08 750 MG Vancomycin HCl (Vancomycin Protocol) 1 each AD IV 11/06/24 13:30 11/13/24 12:35 DC DIAGNOSTICS / RADIOLOGY: [ ] ASSESSMENT: Sepsis POA Left foot gangrene Postoperative day left below-knee amputation ESRD on dialysis T, Th, S POA Acute blood loss anemia Uncontrolled DM II Chronic anemia with anemia of renal disease POA History of chronic corticosteroid use as outpatient with the prednisolone POA Psoriatic POA Uncontrolled hypertension POA PAD POA Recent history of hospitalization [facility] for infected right BKA stump with osteomyelitis on IV antibiotics outpatient Recent Cultures wound positive for MRSA and MDRO E coli Recent history of right BKA site debridement 07/21/2024 followed by delayed primary closure on 07/24/[address] Montes PLAN: Sepsis POA * patient improving with the antibiotics he has been receiving, WBC at 10.1 today * Continue patient on vancomycin and levofloxacin due to penicillin and sulfa allergy * Monitor for clinical signs of infection * We will follow recommendations from Infectious Disease. Post operative day 3 left below-knee amputation (BKA) * Patient stable with no postop complications overnight * Continue to monitor surgical site, dressing to remain in place for3 days * Encourage left knee flexion and extension exercises to preserve joint mobility * Await surgical team's recommendations * Continue patient on pain medication * Physical therapy consulted. ESRD on dialysis T, , S POA * Patient will undergo dialysis tomorrow Acute Blood Loss Anemia * Patient is hemoglobin level is at 7 * Operative note mentions an estimated blood loss of 200 cc * Giving patient Venofer today to see if it will improve his hemoglobin levels, if it does not improve we will plan on doing a transfusion ATTESTATION BY PHYSICIAN I have seen and examined the patient. I reviewed the documentation, medical decision making, and treatment plan as noted by the resident provider above. I agree with the findings and plan of care. Elan Riley MD, ABHINAV MD Nov 13, 2024 12:52
--- NOTE | 2024-11-13 13:08 | NUR ---
NOON DOSE OF SEVELAMER HELD PATIENT DID NOT EAT LUNCH. PATIENT STATES, "I DON'T EAT LUNCH. I ONLY EAT BREAKFAST AND DINNER".
--- NOTE | 2024-11-13 13:20 | PN ---
NEPHROLOGY FOLLOWUP SUBJECTIVE: No major complaints or events reported. OBJECTIVE: GENERAL: The patient is not in any acute distress. VITAL SIGNS: Blood pressure 127/62, respirations 16, pulse 90, temperature 97.5. LUNGS: Clear on auscultation and inspection. HEART: Normal cardiac sound. ABDOMEN: Soft, nondistended. EXTREMITIES: No edema. LABORATORY DATA: WBC count 13.9, hemoglobin 8.2. ASSESSMENT: * End-stage renal disease, on hemodialysis. * Diabetes mellitus type 2 with nephropathy. * Peripheral vascular disease. * Anemia on chronic kidney disease. * Left below-knee amputation. PLAN: * Continue renal diet. * Dialysis per scheduled. * Nutritional support. * No change in current medications. * Monitor hemoglobin levels. TID: [id number] RECEIPT: [id number]
--- NOTE | 2024-11-13 14:36 | NUR ---
DC PLAN SPOKE TO DR Daniel RICH NO NEEDS FOR IV ABX. STILL PENDING WOUND CARE ORDER AND PT EVAL. CHECKED 11/14 1435 PENDING. Addendum: 11/13/24 at 1437 by IAN MONROE RN CM Amended: Links added.
[2024-11-13 15:04] LABS: IMMATURE GRANULOCYTE ABSOLUTE 0.11 K/uL (0-1); NUCLEATED RED BLOOD CELLS 0.0 % (0.0-0.19); PLATELET COUNT (AUTO) 185 K/uL (130-400); RED BLOOD CELL COUNT(AUTO) 2.38 MIL/uL (4.50-6.20); RED CELL DISTRIBUTION WIDTH 14.9 % (11.0-15.5); WHITE BLOOD COUNT (AUTO) 10.3 K/uL (4.8-10.8)
[2024-11-13 15:25] LABS: % IRON SATURATION 116.3 % (30-44); IRON, SERUM 128.0 mcg/dL (65-175)
--- NOTE | 2024-11-13 15:37 | PN ---
INFECTIOUS DISEASE PROGRESS NOTE Date of Service: Nov 13, 2024 SUBJECTIVE: Patient was seen and examined at bedside in room 318. Patient is status post left xymam-hkv-rubz amputation on 11/10/2024. Pending physical therapy evaluation as well as case management evaluation for referral for home physical therapy. No fever reported throughout the night and current temperature is 97.5. Will discontinue levofloxacin and vancomycin. PHYSICAL EXAM EYES: Anicteric. Pupils equal and reactive. HENT: No oral thrush seen, moist Oral mucosa. NECK: Supple, no JVD or thyromegaly. LUNGS: Good air entry. No rales, no rhonchi. CARDIOVASCULAR: S1, S2 regular. No murmur heard. ABDOMEN: Soft, non tender, bowel sounds present, no organomegaly. CENTRAL NERVOUS SYSTEM: Awake, alert, oriented x 3. SKIN: No rashes, no swelling. LYMPHATICS: No peripheral lymphadenopathy MUSCULOSKELETAL: No joint swelling, erythema or tenderness. Left foot diabetic ulcer with gangrene, s/p left xcapm-swd-wxuv amputation on 11/10/2024. History of Right nuhst-hem-xpvn amputation. EXTREMITIES: No cyanosis or clubbing. BACK: No deformity, no pressure ulcer. GENITOURINARY: No dysuria or hematuria. Vital Sign (Last 12 Hours) 11/13/24 11/13/24 11/13/24 11/13/24 04:00 08:00 08:40 12:01 Temp 97.7 99.0 97.5 Pulse 93 95 96 Resp 18 18 19 B/P (MAP) 154/72 136/95 127/76 Pulse Ox 92 89 89 78 O2 Delivery Room Air Room Air Room Air* Room Air O2 Flow Rate 0 FiO2 21 21 21 Intake & Output (last 24hrs) 11/12/24 11/12/24 11/13/24 15:00 23:00 07:00 Intake Total 500 ml 200 ml Balance 500 ml 200 ml LABS: Laboratory: Test 11/13/24 14:53 11/13/24 11:21 11/13/24 05:37 11/12/24 05:18 Range/Units White Blood Count 10.3 4.8-10.8 K/uL Red Blood Count 2.38 L 4.50-6.20 MIL/uL Hemoglobin 7.2 L 14.0-18.0 g/dL Hematocrit 23.1 L 42-54 % Mean Corpuscular Volume 97.1 79-99 fL Mean Corpuscular Hemoglobin 30.3 27.0-33.0 pg Mean Corpuscular Hemoglobin Concent 31.2 L 32.0-36.0 g/dL Red Cell Distribution Width 14.9 11.0-15.5 % Platelet Count 185 130-400 K/uL Mean Platelet Volume 10.4 7.5-10.5 fL Immature Granulocyte % (Auto) 1.1 H 0-1 % Neutrophils (%) (Auto) 70.8 40.0-77.0 % Lymphocytes (%) (Auto) 20.4 L 21.0-51.0 % Monocytes (%) (Auto) 5.2 3.0-13.0 % Eosinophils (%) (Auto) 2.3 0.0-8.0 % Basophils (%) (Auto) 0.2 0.0-5.0 % Neutrophils # (Auto) 7.3 1.8-7.7 K/uL Lymphocytes # (Auto) 2.1 1.0-4.8 K/uL Monocytes # (Auto) 0.5 0.1-1.0 K/uL Eosinophils # (Auto) 0.24 0.00-0.70 K/uL Basophils # (Auto) 0.02 0.00-0.20 K/uL Absolute Immature Granulocyte (auto 0.11 0-1 K/uL Nucleated Red Blood Cells 0.0 0.0-0.19 % Whole Blood Glucose 111 H 70-110 MG/DL Bedside Glucose Comment Notified Nurse Red Blood Cell Morphology See comments Sodium Level 138 136-145 mmol/L Potassium Level 4.0 3.5-5.1 mmol/L Chloride Level 100 L 101-111 mmol/L Carbon Dioxide Level 31 21-32 mmol/L Blood Urea Nitrogen 43 H 7-18 mg/dL Creatinine 6.0 H 0.5-1.3 mg/dL Glomerular Filtration Rate Calc 10 >90 mL/min Random Glucose 133 H 70-105 mg/dL Total Calcium 7.2 L 8.5-10.1 mg/dL Total Bilirubin 0.4 0.2-1.0 mg/dL Aspartate Amino Transf (AST/SGOT) 10 10-37 U/L Alanine Aminotransferase (ALT/SGPT) < 6 L 12-78 U/L Alkaline Phosphatase 93 50-136 U/L Total Protein 5.4 L 6.0-8.3 g/dL Albumin 1.7 L 3.5-5.0 g/dL Phosphorus Level 5.0 H 2.5-4.9 mg/dL Magnesium Level 1.80 1.80-2.40 mg/dL ASSESSMENT: Left foot diabetic ulcer with gangrene and osteomyelitis, status post left rnzka-yzw-pzzn amputation on 11/10/2024. Sepsis, resolving. Leukocytosis, improving. End-stage renal disease, on dialysis. Diabetes mellitus. Anemia with a history of blood transfusion. Psoriasis. PLAN: Discontinue vancomycin. Discontinue levofloxacin. Continue pain management. Continue wound care. Pending physical therapy evaluation. Continue dialysis as recommended by online tutor. Case management to evaluate for home PT referral. No antibiotics needed on discharge. This case was reviewed and discussed with my supervising physician and the above assessment and plan was formulated and agreed upon. ATTESTATION BY PHYSICIAN I have seen and examined the patient. I reviewed the documentation, medical decision making, and treatment plan as noted by the mid-level provider above. I agree with the findings and plan of care. ENEDELIA GUAMAN MD, [facility] Nov 13, 2024 15:37
--- NOTE | 2024-11-13 16:11 | NUR ---
Pt refused PT eval twice this date, citing severe pain. Pt reports that he has been medicated when asked if he called for more meds. Pt does not eat states " food sucks". Pt reports he wants to DC home but might consider rehab for a week. Family member in room thinks that they will need to send him to rehab. Pt refuses to even sit EOB or turn in bed. Attempt in AM
--- NOTE | 2024-11-13 16:46 | NUR ---
[facility] Follow-up: Patient re-assessed by wound healing team. See wound assessment. Assessment and recommendations provided to primary nurse. Education provided. Wound care done. Addendum: 11/14/24 at 1027 by JONATHAN OVIEDO RN RN/ Amended: Links added.
--- NOTE | 2024-11-13 16:47 | PN ---
NEPHROLOGY FOLLOWUP SUBJECTIVE: The patient offers no new complaints. OBJECTIVE: GENERAL: He is not in any major acute distress. VITAL SIGNS: Blood pressure of 127/76, respirations 19, pulse 96, temperature 97.5. LUNGS: Clear on auscultation and inspection. HEART: Normal cardiac sound. ABDOMEN: Soft, nondistended. EXTREMITIES: No edema. LABORATORY DATA: WBC count 10.1, hemoglobin 7.0. Sodium 138, potassium 4.0. ASSESSMENT: * End-stage renal disease. The patient has been dialyzed on TTS. * Diabetes mellitus type 2 with nephropathy. * Hypertension with renal manifestation. * Peripheral arterial disease with a recent below-knee amputation. * Anemia, chronic kidney disease. PLAN: * Continue present plan of care. * We will monitor hemoglobin levels. * The patient may require packed RBC transfusion. * Dialysis is scheduled for tomorrow. TID: [id number] RECEIPT: [id number]
[2024-11-14] VITALS (20 sets, daily range): BP systolic 90–147; BP diastolic 48–63; PULSE 87–102; RESP 16–20; TEMP 97.5–98.3; O2SAT 89–93
[2024-11-14 05:42] LABS: NUCLEATED RED BLOOD CELLS 0.0 % (0.0-0.19); PLATELET COUNT (AUTO) 189.0 K/uL (130-400); RED BLOOD CELL COUNT(AUTO) 2.35 MIL/uL (4.50-6.20); RED CELL DISTRIBUTION WIDTH 14.8 % (11.0-15.5); WHITE BLOOD COUNT (AUTO) 11.4 K/uL (4.8-10.8)
[2024-11-14 06:00] LABS: ASPARTATE AMINOTRANSFERASE 13.0 U/L (10-37); CREATININE 7.3 mg/dL (0.5-1.3); GLOMERULAR FILTR. RATE CALC 8.0 mL/min (>90); GLUCOSE,RANDOM 130.0 mg/dL (70-105); SODIUM SERUM 137.0 mmol/L (136-145); TOTAL PROTEIN, SERUM 5.3 g/dL (6.0-8.3); UREA NITROGEN, BLOOD 52.0 mg/dL (7-18)
--- NOTE | 2024-11-14 09:12 | NUR ---
A.M. DOSE OF SEVELAMER HELD PATIENT DID NOT EAT BREAKFAST. WHEN ASKED WHY PATIENT STATED, "I WAS ASLEEP. THE FOOD WAS PROBABLY COLD ANYWAY".
--- NOTE | 2024-11-14 09:24 | NUR ---
SPOKE WITH DIALYSIS NURSE, GENEVA BRITO, IN ORDER TO CLARIFY A.M. LOVENOX DOSE. PER GENEVA BRITO, OK TO GIVE A.M. LOVENOX DOSE.
--- NOTE | 2024-11-14 10:18 | NUR ---
PATIENT REFUSED DIALYSIS THIS MORNING. STATES NURSE JUST GAVE HIM HIS PAIN MEDS AND DOES NOT WANT IT TO BE FLUSHED AWAY WITH DIALYSIS MACHINE. CALLED NUTRITION SERVICES ASSOCIATE; DR. RAMACHANDRAN AND Candi KOCH NP; NO ANSWER. NOTIFIED CLINICAL HYDRAULIC PLUMBER, Terence SWANN RN. WILL RE-ATTEMPT TO START HD IN THE AFTERNOON. PRIMARY CARE NURSE ALISHA CAGLE AWARE.
[2024-11-14] MEDS: HYDROcodone/APAP 5/325 1 TAB TABLET PO PRN (11:45)
--- NOTE | 2024-11-14 11:45 | NUR ---
Approached patient for PT evaluation prior to dialysis at request of MD. Informed patient that I there to try to evaluate his mobility per MD request in order to facilitate DC home per patients stated preference. Pt reports he needs medication for pain first and to " let it kick in". Education provided to patient that 20 minutes would be optimal for pain relief and in order to provide PT before patient gets drowsy, as that happened yesterday. Pt agreeable. Approached nurse to provide medications. Informed patient that the MD wants us to practice slide board transfers in order to DC home. Per patient he has a WC at home and a slideboard, and this was his PLOF. However now patient states " I am afraid to fall miss". I told him I would bring in another therapist, a male to help. He stated " you dont understand miss, I have fallen alot of times" to which I offered to bring 2 additional therapists. He reiterated that he is scared to fall, to which I suggested perhaps he should DC to rehab instead of home, and that either way we would need to assess his ability. Pt began to yell and berate this PT " I know my rights I dont have to go anywhere, I can sign that AMA form and be on my way" I asked him if he wished to refuse PT. He said he would attempt. Two more therapists came, and since patient was becoming agitated I let those therapist lead the treatment while I observed. Pt was premedicated. The therapists came with slide board, WC, and gait belt. Explained to patient what we were wanted to test and why. Pt now upset because lunch tray has arrived and " I have the right to eat. I do not want cold food" . Explained to patient that we can sit him EOB or in chair and we will then give him his tray table, tray, and other belongings that we moved in order to complete transfer training. Pt upset and self limiting. Pt finally agrees to participate. MAX assist 2 persons for bed mobility MAX assist 1 person to maintain balance. Pt refused to attempt SB transfer and stated he needs to go to rehab. This is his first time to report wanting rehab I informed nurse and window caser in person. Pt was offered to sit EOB for meal and refused. Pt was offered to have a new tray ( warm food) brought he declined and began to eat after therapist set up the tray. Pt back to bed with fall alarm, call aldrich on and belongings within reach. Pt requests this therapists name and credentials regarding a complaint stating that I " told him he had no choice but to go to rehab" and that I " wouldnt let him eat". Total time in room 30 minutes overall, 23 minutes of treatment, set up and education. No family present.
[2024-11-14] MEDS: ALBUMIN (HUMAN) 25% 50 ML IV.SOLN. IV SCH (13:59)
--- NOTE | 2024-11-14 14:11 | NUR ---
DC PLAN PATIENT NOW THINKING ABOUT GOING TO FACILITY FOR SNF. PT NOT ABLE TO TRANSFER EVEN WITH TRANSFER BOARD. WENT OVER THE FACILITIES THAT HE COULD GO TO HE HAS IN HOUSE DIALYSIS NOT PERIDIALYSIS. THE TWO THAT HAD IN HOUSE DIALYSIS IS [facility] IN [place] AND [facility] IN [place]. SAID HE WOULD TALK TO FAMILY MIGHT BE TO FAR FOR THEM. CM LET NURSE KNOW OF CONVERSATION. CM WILL CONTINUE TO FOLLOW. Addendum: 11/14/24 at 1416 by IAN MONROE RN CM Amended: Links added.
--- NOTE | 2024-11-14 15:42 | NUR ---
Nutrition consult per LOS >7 Reviewed labs, notes, and medications. Pt last admin 10/07/24, on ESRD on HD (T//), s/p left BKA 11/10/24, Pt does not like food, pending d/c to rehab, on GI soft/bland diet + 75 gm cho, elevated BUN 52, elevated Cr 7.3, BG 130 (H), Ca 6.9(L) per chart review. 25 %PO intake, wt via bed scale, last BM 11/07/24, perma cath in place, no edema, well nourished, 700 ml balance 11/13/24, 1.6L output HD 11/12/24 per nursing. Pt with PCM per IBW % 296. Recommendations: -Provide GI soft/bland diet + 75 gm cho + prostat jello tid w/ trays + HH diet -Fluid restriction per MD -Monitor PO intake -Encourage PO intake as able -If poor PO intake continues consider appetite stimulant -Monitor BM -If no BM >3 days consider stool softener -Monitor electrolytes -Replenish electrolytes per protocol -Monitor wts -Reweigh as able -Order Vit D, vit b-12 labs to rule out deficiencies -Provide NEPHROVITE QD -Recommend Pt to follow up with PCP -Monitor goals of care RD to follow + available for consult per protocol Addendum: 11/14/24 at [address] Amended: Links added.
[2024-11-14] MEDS: EPOETIN ALFA-EPBX (NON-ESRD) 10,000 UNIT/ML VIAL SQ ONE (17:01)
--- NOTE | 2024-11-14 18:47 | PN ---
[facility] PROGRESS NOTE Date of Service: Nov 14, 2024 Time of Service: 18:18 SUBJECTIVE: 11/07/24: Patient evaluated at bedside with family present. Patient was in pain in his left leg. Patient was given 1 mg of Dilaudid 30 minutes before but he wa s still in pain. Given the patient's persistent high pain score, with ESRD and stable clinical status (alert, oriented, respiratory rate and O2 saturation within normal limits) an increased dose of 1.5 mg IV hydromorphone was ordered for more effective pain control. We will monitor for efficacy and signs of over- sedation. Patient stable with temperature at 98.1 pulse 103, respiratory rate 21, blood pressure 133/88 and the pulse ox of 95 on room air. His labs today showed his WBC dropping to 17.5 from 21.9 yesterday, his hemoglobin also dropped to 8.5 from 9.0. Patient's creatinine was at 7.2 and BUN at 91 he is due for dialysis today. The automatic edger Dr. Jackson saw him today in the morning and assess that he has wet gangrene to the left forefoot and a necrotic left heel ulcer, he also has nonoperable peripheral vascular disease and has ischemic rest pain. He also mentioned that the patient is a candidate for a [id number] amputation. He may Brittni reviewed by Dr. Jordan, who is the surgeon. From surgical standpoint they ordered CTA of the abdomen aorta with runoff to access for any vascular abnormalities and if any cardiovascular interventions needed before surgical intervention. Patient is likely to be scheduled for left BKA by Dr. Jordan. Patient was made aware of the plan and he agrees. 11/08/24: Patient evaluated bedside without his family present. Patient was still in pain in his left leg after being given 1.5 mg Dilaudid. Patient refused dialysis yesterday because of his pain so today his creatinine increased to 8.1 from 7.2 yesterday his BUN increased to 96 from 91 yesterday. Spoke to the patient regarding this and he agreed to have his dialysis performed today, hopefully his labs will improve after dialysis. His WBC did decrease to 15.8 from 17.5 yesterday. Patient had a popliteal nerve block for pain management perform yesterday night by the anesthesiologist he still says that the pain is only 30% resolved. Dr. Vizcaino the Infectious Disease specialist saw the patient today and recommended to continue vancomycin and levofloxacin. He is also scheduled for CTA of the abdomen aorta with runoff to access for any vascular abnormalities and if any cardiovascular interventions needed before surgical intervention. His surgery has been scheduled for tomorrow. 11/09/24: Patient evaluated at bedside with his present. Patient is stable but still in pain. He also had episodes of vomiting even on Zofran. Will consult GI after the patients BKA. The BKA has been scheduled for tomorrow. Patient underwent CTA Chest today as preop, still waiting on the report. Patient has also been started on Zofran 40 mg IV. Continuing patients antibiotics of vancomycin and levofloxacin. Patients labs have improved since he got dialysed yesterday. His Creatine has improved from 8.1 to 6.3 and his Bun has gone down to 56 from 96. 11/10/24: Patient evaluated at bedside with his present. Patient is stable but still in pain. He is scheduled to undergo left BKA surgery in the afternoon. Patient had a CTA ABDAOR - CT ANGIO ABD AORTA W RUNOFF performed yesterday which showed diffuse atherosclerotic changes with multilevel focal occlusions segment of the right superficial femoral artery and the right popliteal artery and the trifurcation vessels. Patient's creatinine went down to 5.0 from 6.3 and BUN to 37 from 56. Patient's went to bring that left foot culture came back positive for Gram-negative rods and Gram-positive cocci resistant to gentamicin and sensitive to vancomycin so continuing the patient on vancomycin and levofloxacin 11/11/24: The patient is postoperative day 1from a left below-knee amputation (BKA). He remains hemodynamically stable with no acute events overnight. He denies nausea or vomiting, is tolerating diet well, and is passing flatus. He continues to report pain, for which he received1 mg of IV Dilaudid. He is currently receiving antibiotic therapy with Levaquin and Zosyn. Hemodialysis was performed today with a net removal of 1.6 L. Pre dialysis labs revealed sodium 131, potassium 5.2, BUN 46, creatinine 6.3, WBC 13.9, hemoglobin 8.2, platelet 172. Repeat laboratory testing is planned for tomorrow morning. The patient was advised to begin gentle flexion and extension exercise of the left knee. The surgical dressing will remain in place for 3 days. We will await further recommendation from the Surgical and Infectious Disease teams. The patient has expressed a strong preference for discharge with home health service and has declined transfer to a snf facility for rehabilitation. 11/12/24: The patient is postoperative day 2 from a left below-knee amputation (BKA). He remains hemodynamically stable with no acute events overnight. He denies nausea or vomiting, is tolerating diet well, and is passing flatus. He continues to report pain, for which he received1 mg of IV Dilaudid and 100 mg of gabapentin. He is currently receiving antibiotic therapy with Levaquin and Zosyn. Hemodialysis was performed yesterday with a net removal of 1.6 L. This morning CBC 14.8, hemoglobin 7.4, sodium 137, potassium 4, magnesium 1.8, creatinine 4.4. The patient was advised to begin gentle flexion and extension exercise of the left knee. The surgical dressing will remain in place for 3 days. We will await further recommendation from the Surgical and Infectious Disease teams. Physical therapy consulted. The patient has expressed a strong preference for discharge with home health service and has declined transfer to a snf facility for rehabilitation. 11/13/24: The patient is postoperative day 3 from a left below-knee amputation (BKA). He remains hemodynamically stable with no acute events overnight. He denies nausea or vomiting, is tolerating diet well, and is passing flatus but no bowel movement yet so we started the patient on lactulose. He continues to report pain, we have discontinued the IV Dilaudid and put him on p.o. hydromorphone and also fentanyl patches. He is currently receiving antibiotic therapy with Levaquin and Zosyn. We are waiting for recommendation from Dr. Vizcaino the infectious disease specialist regarding antibiotics during dis charge. His hemoglobin has dropped to 7 today so we gave him Venofer, we will see if he improves or if he requires transfusion. Hemodialysis will be performed tomorrow. This morning CBC 10.1, hemoglobin 7.0, sodium 138, potassium 4.0, creatinine 6.0. The patient was advised to begin gentle flexion and extension exercise of the left knee. The surgical dressing will remain in place for 3 days. Placed a PT evaluation to make sure he can transfer from bed to wheelchair. We are also waiting on the surgeon's recommendation for wound care. Once the above orders have been completed the patient can be discharged home with home health service. The patient has expressed a strong preference for discharge with home health service and has declined transfer to a snf facility for rehabilitation. 11/14/24: The patient is postoperative day from a left below-knee amputation (BKA). He is hemodynamically stable with no acute events overnight. The change made yesterday from IV Dilaudid to hydromorphone p.o. helped patient with his pain and led him to have a peaceful night sleep. Infectious Disease said we cou ld discharge him without any antibiotics. Antibiotics have been discontinued. Surgery placed the necessary wound care recommendations. Patient had a physical therapy session today after which he decided that he would go to rehab instead of home health. Physical therapy also recommends physical therapy, so case management has been notified. Today we change the pain medication to Tylenol- codeine tablets with fentanyl patch. We will see how the patient does on the new medication and also waiting on case management for placement to snf facility for rehabilitation. REVIEW OF SYSTEMS CONSTITUTIONAL: Denies fevers, chills, or night sweats. No unintentional weight loss reported. MUSCULOSKELETAL: Wuteg-hrl-rwig amputation on the right. Left lower extremity pos up from BKA. Pain at surgical site. NEUROLOGICAL: Denies headache, amaurosis fugax, motor weakness, sensory defic it, vertigo/spinning sensation, gait abnormalities, or tremors. ENT: No hearing loss, otalgia, otorrhea, rhinitis, rhinorrhea, hoarseness, or sore throat. CARDIOVASCULAR: Denies any exertional angina, dyspnea on exertion, orthopnea, paroxysmal nocturnal dyspnea, palpitations, life-threatening arrhythmias, claudication. PULMONARY: Denies any shortness of breath, cough, phlegm/sputum, hemoptysis, pleuritic chest pain. GASTROINTESTINAL: Denies any type of dysphagia to either liquids or solids. Denies nausea, vomiting, pyrosis, early satiety, abdominal pain, diarrhea, constipation, or changes in stool consistency or caliber. GENITOURINARY: Denies frequency, urgency, nocturia, hematuria or incontinence ENDOCRINOLOGIC: Denies polyuria, polydipsia, polyphagia or heat/cold intolerances. HEMATOLOGIC: Denies thrombophilia/previous clots, or coagulopathy/bleeding disorders. DERMATOLOGIC: Denies rashes or pruritus. PSYCHIATRIC: Denies any suicidal or homicidal ideation. Denies hallucinations. PHYSICAL EXAM GENERAL APPEARANCE: The patient is awake, alert, and oriented, in no acute cardiopulmonary distress. NEUROLOGICAL: Motor is 5/5 in bilateral upper and lower extremities proximal to distal. No sensory deficits. HEENT: Face is symmetric. Pupils are equal and reactive. Extraocular movements are intact. NECK: Supple. No JVD. No thyromegaly. No submental, submandibular, pre- /postauricular, occipital or supraclavicular lymphadenopathy. CHEST: Normal chest expansion. No Telemetry. LUNGS: Absence of any rales, rhonchi or any wheezing. CARDIOVASCULAR: Regular. S1 and S2 normal. No appreciable rubs, murmurs or gallops. ABDOMEN: Soft, nontender, and nondistended. There is no rebound, voluntary guarding, or rigidity. : Deferred. No Hutson. EXTREMITIES: Left lower extremity with surgical dressing in place over BKA site, clean, dry, and intact. Mild postop tenderness. BKA of RLE SKIN: No skin breakdown. Vital Signs (last 8hr) Date Time Temp Pulse Resp B/P (MAP) Pulse Ox O2 Delivery O2 Flow Rate FiO2 11/14/24 16:40 97.5 94 16 131/63 Room Air 11/14/24 16:30 93 16 120/61 Room Air 11/14/24 16:15 90 16 115/59 Room Air 11/14/24 16:00 90 16 102/56 Room Air 11/14/24 16:00 88 20 111/60 96 Room Air 21 11/14/24 15:45 88 16 111/60 Room Air 11/14/24 15:30 88 16 109/58 Room Air 11/14/24 15:15 89 16 113/57 Room Air 11/14/24 15:00 90 16 112/56 Room Air 11/14/24 14:45 89 16 112/48 Room Air 11/14/24 14:30 90 16 107/60 Room Air 11/14/24 14:15 90 16 93/52 Room Air 11/14/24 14:00 90 16 107/56 Room Air 11/14/24 13:45 89 16 93/54 Room Air 11/14/24 13:25 97.5 87 16 90/55 Room Air 11/14/24 13:00 97.5 92 16 93/50 Room Air 11/14/24 12:00 97.5 102 20 103/61 81 Room Air 21 LABS: Laboratory: Test 11/14/24 15:40 11/14/24 05:25 11/13/24 14:53 11/13/24 05:37 Range/Units Whole Blood Glucose 139 H 70-110 MG/DL Bedside Glucose Comment Notified Nurse White Blood Count 11.4 H 4.8-10.8 K/uL Red Blood Count 2.35 L 4.50-6.20 MIL/uL Hemoglobin 7.1 L 14.0-18.0 g/dL Hematocrit 23.3 L 42-54 % Mean Corpuscular Volume 99.1 H 79-99 fL Mean Corpuscular Hemoglobin 30.2 27.0-33.0 pg Mean Corpuscular Hemoglobin Concent 30.5 L 32.0-36.0 g/dL Red Cell Distribution Width 14.8 11.0-15.5 % Platelet Count 189 130-400 K/uL Mean Platelet Volume 10.7 H 7.5-10.5 fL Nucleated Red Blood Cells 0.0 0.0-0.19 % Sodium Level 137 136-145 mmol/L Potassium Level 4.2 3.5-5.1 mmol/L Chloride Level 100 L 101-111 mmol/L Carbon Dioxide Level 30 21-32 mmol/L Blood Urea Nitrogen 52 H 7-18 mg/dL Creatinine 7.3 H 0.5-1.3 mg/dL Glomerular Filtration Rate Calc 8 >90 mL/min Random Glucose 130 H 70-105 mg/dL Total Calcium 6.9 L 8.5-10.1 mg/dL Total Bilirubin 0.3 # 0.2-1.0 mg/dL Aspartate Amino Transf (AST/SGOT) 13 10-37 U/L Alanine Aminotransferase (ALT/SGPT) 6 L 12-78 U/L Alkaline Phosphatase 101 50-136 U/L Total Protein 5.3 L 6.0-8.3 g/dL Albumin 1.7 L 3.5-5.0 g/dL Immature Granulocyte % (Auto) 1.1 H 0-1 % Neutrophils (%) (Auto) 70.8 40.0-77.0 % Lymphocytes (%) (Auto) 20.4 L 21.0-51.0 % Monocytes (%) (Auto) 5.2 3.0-13.0 % Eosinophils (%) (Auto) 2.3 0.0-8.0 % Basophils (%) (Auto) 0.2 0.0-5.0 % Neutrophils # (Auto) 7.3 1.8-7.7 K/uL Lymphocytes # (Auto) 2.1 1.0-4.8 K/uL Monocytes # (Auto) 0.5 0.1-1.0 K/uL Eosinophils # (Auto) 0.24 0.00-0.70 K/uL Basophils # (Auto) 0.02 0.00-0.20 K/uL Absolute Immature Granulocyte (auto 0.11 0-1 K/uL Iron Level 128 # 65-175 mcg/dL Total Iron Binding Capacity 110 L 250-450 mcg/dL Percent Iron Saturation 116.3 H 30-44 % Red Blood Cell Morphology See comments Current Medications Medications (Trade) Dose Ordered Sig/Idania Route PRN Reason Start Time Stop Time Status Last Admin Dose Admin Acetaminophen/ Codeine Phosphate (TYLenol-coDEINE TAB) 1 tab Q4H PRN PO MODERATE PAIN (4-6) 11/14/24 13:00 12/14/24 12:59 Acetaminophen/ Hydrocodone Bitart (NORco 5/325MG) 1 tab Q4H PRN PO MODERATE PAIN (4-6) 11/06/24 13:30 11/07/24 01:21 DC Acetaminophen/ Hydrocodone Bitart (NORco 5/325MG) 1 tab Q6H PRN PO SEVERE PAIN (7-10) 11/14/24 10:00 11/19/24 09:59 11/14/24 18:11 1 TAB Acetaminophen/ Hydrocodone Bitart (NORco 5/325MG) 2 tab Q4H PRN PO SEVERE PAIN (7-10) 11/06/24 13:30 11/07/24 01:21 DC 11/06/24 22:09 2 TAB Acetaminophen/ Hydrocodone Bitart (NORco 5/325MG) 2 tab Q8H PO 11/07/24 13:00 11/07/24 13:45 DC Acetaminophen/ Hydrocodone Bitart (NORco 5/325MG) 2 tab Q8H PRN PO PAIN LEVEL 7 TO 10 11/07/24 14:00 11/07/24 13:57 DC Acetaminophen/ Hydrocodone Bitart (NORco 5/325MG) 2 tab Q8H PRN PO MODERATE PAIN (4-6) 11/07/24 18:30 11/12/24 18:29 DC 11/12/24 08:50 2 TAB Albumin Human (Albumin (Human) 25%) 100 ml ONCE IV 11/14/24 14:00 11/15/24 13:59 11/14/24 13:59 100 ML Atorvastatin Calcium (LIPItor 40MG) 40 mg HS PO 11/06/24 21:00 12/06/24 20:59 11/13/24 20:24 40 MG Dextrose (D50w) 50 ml AD PRN IV HYPOGLYCEMIA PROTOCOL 11/06/24 14:30 12/06/24 14:29 11/10/24 13:43 25 ML Enoxaparin Sodium (Lovenox) 30 mg DAILY SQ 11/07/24 09:00 12/07/24 08:59 11/14/24 09:30 30 MG Famotidine (Pepcid 20mg Tab) 20 mg QTUTHSA@2100 PO 11/06/24 21:00 11/09/24 11:34 DC 11/06/24 21:10 20 MG Fentanyl (DURAgesic 12 MCG/HR PATCH) 12 mcg Q72H TD 11/14/24 10:00 11/14/24 10:09 DC Gabapentin (NEURontin 100 mg CAP) 100 mg TID PO 11/12/24 21:00 12/12/24 20:59 11/14/24 14:54 100 MG Glucagon (Glucagon 1mg Kit) 1 mg AD PRN IM HYPOGLYCEMIA PROTOCOL 11/06/24 14:30 12/06/24 14:29 Heparin Sodium (Porcine) (HEParin 5,000 UNIT VIAL) 10,000 unit AD IRRIG 11/08/24 15:00 12/08/24 14:59 11/14/24 16:37 10,000 UNIT Hydromorphone HCl (DiLAUDid 1MG INJ) 1 mg Q4H PRN IVP SEVERE PAIN (7-10) 11/07/24 08:00 11/12/24 07:59 DC 11/12/24 02:15 1 MG Hydromorphone HCl (DiLAUDid 1MG INJ) 1 mg Q4H PRN IVP SEVERE PAIN (7-10) 11/12/24 09:00 11/13/24 12:19 DC 11/13/24 08:42 1 MG Hydromorphone HCl (DiLAUDid 2MG TAB) 2 mg Q6H PRN PO SEVERE PAIN (7-10) 11/13/24 12:30 11/14/24 10:03 DC 11/14/24 09:33 2 MG Insulin Glargine (LANtus 100 UNITS/ML 10 ML VIAL) 10 units HS SQ 11/06/24 21:00 11/07/24 11:22 DC 11/06/24 21:15 10 UNITS Insulin Human Regular (humuLIN R 100 UNIT/ML 3ML) INSULIN SLIDING SCAL... ACHS SQ 11/06/24 16:30 12/06/24 16:29 11/12/24 21:17 2 UNIT Lactulose (Constulose 20gm/ 30ml Udcup) 20 gm BID PRN PO CONSTIPATION 11/13/24 12:30 12/13/24 12:29 Leptospermum Honey (Medihoney) 1 APPL DAILY16 TP 11/07/24 16:00 12/07/24 15:59 11/14/24 17:01 1 APPL Levofloxacin/ Dextrose (LEvaquIN 500 MG/ D5W 100 ML) 500 mg Q48H IV 11/06/24 16:00 11/13/24 12:35 DC 11/12/24 17:11 500 MG Lidocaine (Lidoderm Patch 5%) 1 patch DAILY TP 11/09/24 20:00 12/09/24 19:59 11/14/24 09:12 1 PATCH Morphine Sulfate (morPHINE 2MG SYG) 2 mg Q4H PRN IVP SEVERE PAIN (7-10) 11/07/24 01:30 11/07/24 08:00 DC 11/07/24 02:34 2 MG Nifedipine (adALAT 30MG) 60 mg Q24H PO 11/06/24 14:30 12/06/24 14:29 11/13/24 13:06 60 MG Ondansetron HCl (zoFRAN 4MG INJ) 4 mg Q6H PRN IVP NAUSEA/VOMITING 11/07/24 19:30 12/07/24 19:29 11/09/24 11:33 4 MG Pantoprazole Sodium (PROTonix 40MG INJ) 40 mg DAILY IVP 11/10/24 09:00 12/10/24 08:59 11/14/24 09:11 40 MG Pantoprazole Sodium (PROTonix 40MG INJ) 40 mg DAILY IVP 11/10/24 09:00 12/10/24 08:59 UNV Pharmacy Profile Note (Lace Assessment) 1 each AD MISC 11/07/24 11:30 11/07/24 11:35 DC Sevelamer HCl (RENAgel 800 MG TAB) 400 mg TIDMEALS PO 11/09/24 12:00 12/09/24 11:59 11/14/24 17:01 400 MG Sodium Chloride 1,000 ml @ 0 mls/hr ONCE IV 11/08/24 15:00 12/08/24 14:59 11/14/24 13:59 100 MLS/HR Tramadol HCl (UltRAM) 50 mg Q6H PRN PO MODERATE PAIN (4-6) 11/07/24 01:30 11/07/24 18:09 DC Vancomycin HCl 250 ml @ 166.667 mls/hr QTUSA IV 11/07/24 09:00 11/06/24 13:22 DC Vancomycin HCl 250 ml @ 166.667 mls/hr QTUTHSA[DIALYSIS] IV 11/07/24 16:00 11/11/24 06:25 DC 11/09/24 15:44 166.667 MLS/HR Vancomycin HCl (Vancomycin 750mg) 750 mg QTUTHSA[DIALYSIS] IVPB 11/11/24 16:00 11/13/24 12:35 DC 11/11/24 16:08 750 MG Vancomycin HCl (Vancomycin Protocol) 1 each AD IV 11/06/24 13:30 11/13/24 12:35 DC DIAGNOSTICS / RADIOLOGY: [ ] ASSESSMENT: Sepsis POA Left foot gangrene Postoperative day left below-knee amputation ESRD on dialysis T, Th, S POA Acute blood loss anemia Uncontrolled DM II Chronic anemia with anemia of renal disease POA History of chronic corticosteroid use as outpatient with the prednisolone POA Psoriatic POA Uncontrolled hypertension POA PAD POA Recent history of hospitalization [facility] for infected right BKA stump with osteomyelitis on IV antibiotics outpatient Recent Cultures wound positive for MRSA and MDRO E coli Recent history of right BKA site debridement 07/21/2024 followed by delayed primary closure on 07/24/[address] Montes PLAN: Sepsis POA, resolving * patient improving with the antibiotics he has been receiving, WBC at 11.4 today * Discontinue vancomycin and levofloxacin * Patient afebrile with current temperature at 97.5 * We will follow recommendations from Infectious Disease. Post operative day 3 left below-knee amputation (BKA) * Patient stable with no postop complications overnight * Continue to monitor surgical site * Encourage left knee flexion and extension exercises to preserve joint mobility * Await surgical team's recommendations * Continue patient on pain medication * Physical therapy consulted who recommended rehab ESRD on dialysis T, Th, S POA * Patient underwent dialysis today. Patient received 1 bag of blood transfused during dialysis * Will check labs tomorrow Acute Blood Loss Anemia * Patient is hemoglobin level is at 7. Patient received 1 bag of blood transfused during dialysis * Operative note mentions an estimated blood loss of 200 cc * Patient received Venofer yesterday which helped increase hemoglobin level from 7 to 7.2 ATTESTATION BY PHYSICIAN I have seen and examined the patient. I reviewed the documentation, medical decision making, and treatment plan as noted by the resident provider above. I agree with the findings and plan of care. Elan Riley MD, ABHINAV MD Nov 14, 2024 18:47
--- NOTE | 2024-11-14 20:49 | PN ---
NEPHROLOGY FOLLOWUP SUBJECTIVE: The patient offers no new complaints. He has been dialyzed during my visit. OBJECTIVE: GENERAL: No any major acute distress. Awake and alert. VITAL SIGNS: Blood pressure 93/50, respirations 16, pulse 92, temperature 97.5. LUNGS: Clear to auscultation. HEART: Normal cardiac sound. ABDOMEN: Soft, nondistended. EXTREMITIES: Bilateral leg amputations. LABORATORY DATA: WBC count 11.4, hemoglobin 7.5. Sodium 137, potassium 4.2, BUN 52, creatinine 7.3, albumin 1.7. ASSESSMENT: * End-stage renal disease. * Diabetes mellitus type 2 and nephropathy. * Hypertension with renal manifestation. * Diabetic foot infection, requiring amputation. * Severe protein calorie malnutrition with albumin of 1.7 mg/dL. PLAN: * Continue present plan of care. * Continue monitoring hemoglobin level. * A unit of packed RBC will be transfused. * The patient will receive erythropoietin for management of anemia. TID: [id number] RECEIPT: [id number]
--- NOTE | 2024-11-14 21:07 | PN ---
INFECTIOUS DISEASE PROGRESS NOTE Date of Service: Nov 14, 2024 SUBJECTIVE: Patient was seen and examined at bedside in room 318. Patient is status post left neigz-hlw-vcvz amputation on 11/10/2024. Per report patient refused to participate with physical therapy. No nausea or vomiting. No fever, temperature is 97.5. Case management working on home physical therapy arrangements. PHYSICAL EXAM EYES: Anicteric. Pupils equal and reactive. HENT: No oral thrush seen, moist Oral mucosa. NECK: Supple, no JVD or thyromegaly. LUNGS: Good air entry. No rales, no rhonchi. CARDIOVASCULAR: S1, S2 regular. No murmur heard. ABDOMEN: Soft, non tender, bowel sounds present, no organomegaly. CENTRAL NERVOUS SYSTEM: Awake, alert, oriented x 3. SKIN: No rashes, no swelling. LYMPHATICS: No peripheral lymphadenopathy MUSCULOSKELETAL: No joint swelling, erythema or tenderness. Left foot diabetic ulcer with gangrene, s/p left oqsgs-wib-[id number] amputation on 11/10/2024. History of Right tbdqp-[id number]-[id number] amputation. EXTREMITIES: No cyanosis or clubbing. BACK: No deformity, no pressure ulcer. GENITOURINARY: No dysuria or hematuria. Vital Sign (Last 12 Hours) 11/14/24 11/14/24 11/14/24 11/14/24 09:11 12:00 13:00 13:25 Temp 97.5 97.5 97.5 Pulse 102 92 87 Resp 20 16 16 B/P (MAP) 103/61 93/50 90/55 Pulse Ox 89 81 O2 Delivery Room Air* Room Air Room Air Room Air O2 Flow Rate 0 FiO2 21 21 11/14/24 11/14/24 11/14/24 11/14/24 13:45 14:00 14:15 14:30 Pulse 89 90 90 90 Resp 16 16 16 16 B/P (MAP) 93/54 107/56 93/52 107/60 O2 Delivery Room Air Room Air Room Air Room Air 11/14/24 11/14/24 11/14/24 11/14/24 14:45 15:00 15:15 15:30 Pulse 89 90 89 88 Resp 16 16 16 16 B/P (MAP) 112/48 112/56 113/57 109/58 O2 Delivery Room Air Room Air Room Air Room Air 7/11/14/24 11/14/24 11/14/24 15:45 16:00 16:00 16:15 Pulse 88 88 90 90 Resp 16 20 16 16 B/P (MAP) 111/60 111/60 102/56 115/59 Pulse Ox 96 O2 Delivery Room Air Room Air Room Air Room Air FiO2 21 11/14/24 11/14/24 11/14/24 16:30 16:40 20:00 Temp 97.5 98.2 Pulse 93 94 94 Resp 16 16 18 B/P (MAP) 120/61 131/63 147/63 Pulse Ox 90 O2 Delivery Room Air Room Air Room Air Intake & Output (last 24hrs) 11/13/24 11/13/24 11/14/24 15:00 23:00 07:00 Intake Total 200 ml Output Total 0 ml Balance 0 ml 200 ml LABS: Laboratory: Test 11/14/24 19:49 11/14/24 15:40 11/14/24 05:25 11/13/24 14:53 Range/Units Whole Blood Glucose 179 H 70-110 MG/DL Bedside Glucose Comment Notified Nurse White Blood Count 11.4 H 4.8-10.8 K/uL Red Blood Count 2.35 L 4.50-6.20 MIL/uL Hemoglobin 7.1 L 14.0-18.0 g/dL Hematocrit 23.3 L 42-54 % Mean Corpuscular Volume 99.1 H 79-99 fL Mean Corpuscular Hemoglobin 30.2 27.0-33.0 pg Mean Corpuscular Hemoglobin Concent 30.5 L 32.0-36.0 g/dL Red Cell Distribution Width 14.8 11.0-15.5 % Platelet Count 189 130-400 K/uL Mean Platelet Volume 10.7 H 7.5-10.5 fL Nucleated Red Blood Cells 0.0 0.0-0.19 % Sodium Level 137 136-145 mmol/L Potassium Level 4.2 3.5-5.1 mmol/L Chloride Level 100 L 101-111 mmol/L Carbon Dioxide Level 30 21-32 mmol/L Blood Urea Nitrogen 52 H 7-18 mg/dL Creatinine 7.3 H 0.5-1.3 mg/dL Glomerular Filtration Rate Calc 8 >90 mL/min Random Glucose 130 H 70-105 mg/dL Total Calcium 6.9 L 8.5-10.1 mg/dL Total Bilirubin 0.3 # 0.2-1.0 mg/dL Aspartate Amino Transf (AST/SGOT) 13 10-37 U/L Alanine Aminotransferase (ALT/SGPT) 6 L 12-78 U/L Alkaline Phosphatase 101 50-136 U/L Total Protein 5.3 L 6.0-8.3 g/dL Albumin 1.7 L 3.5-5.0 g/dL Immature Granulocyte % (Auto) 1.1 H 0-1 % Neutrophils (%) (Auto) 70.8 40.0-77.0 % Lymphocytes (%) (Auto) 20.4 L 21.0-51.0 % Monocytes (%) (Auto) 5.2 3.0-13.0 % Eosinophils (%) (Auto) 2.3 0.0-8.0 % Basophils (%) (Auto) 0.2 0.0-5.0 % Neutrophils # (Auto) 7.3 1.8-7.7 K/uL Lymphocytes # (Auto) 2.1 1.0-4.8 K/uL Monocytes # (Auto) 0.5 0.1-1.0 K/uL Eosinophils # (Auto) 0.24 0.00-0.70 K/uL Basophils # (Auto) 0.02 0.00-0.20 K/uL Absolute Immature Granulocyte (auto 0.11 0-1 K/uL Iron Level 128 # 65-175 mcg/dL Total Iron Binding Capacity 110 L 250-450 mcg/dL Percent Iron Saturation 116.3 H 30-44 % Test 11/13/24 05:37 Range/Units Red Blood Cell Morphology See comments ASSESSMENT: 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 Sepsis, resolved. Leukocytosis, resolved. End-stage renal disease, on dialysis. Diabetes mellitus. Anemia with a history of blood transfusion. Psoriasis. PLAN: Continue pain management. Continue wound care. Continue physical therapy. Continue dialysis as recommended by ham smoker. Case management on home PT arrangement. No antibiotics needed on discharge. This case was reviewed and discussed with my supervising physician and the above assessment and plan was formulated and agreed upon. ATTESTATION BY PHYSICIAN I have seen and examined the patient. I reviewed the documentation, medical decision making, and treatment plan as noted by the mid-level provider above. I agree with the findings and plan of care. ENEDELIA GUAMAN MD, [facility] Nov 14, 2024 21:07
[2024-11-15] VITALS (8 sets, daily range): BP systolic 107–143; BP diastolic 42–73; PULSE 68–105; RESP 17–20; TEMP 97.8–98.4; O2SAT 94
[2024-11-15 05:52] LABS: NUCLEATED RED BLOOD CELLS 0.0 % (0.0-0.19); PLATELET COUNT (AUTO) 199.0 K/uL (130-400); RED BLOOD CELL COUNT(AUTO) 2.77 MIL/uL (4.50-6.20); RED CELL DISTRIBUTION WIDTH 15.9 % (11.0-15.5); WHITE BLOOD COUNT (AUTO) 10.6 K/uL (4.8-10.8)
[2024-11-15 06:06] LABS: CREATININE 4.7 mg/dL (0.5-1.3); GLOMERULAR FILTR. RATE CALC 13.0 mL/min (>90); GLUCOSE,RANDOM 221.0 mg/dL (70-105); SODIUM SERUM 138.0 mmol/L (136-145); UREA NITROGEN, BLOOD 24.0 mg/dL (7-18)
[2024-11-15] MEDS: LACTULOSE 20 GM/30 ML UDCUP PO PRN (06:21)
--- NOTE | 2024-11-15 12:38 | NUR ---
PIERO SALDIVAR CM SPOKE TO PATIENT ABOUT GOING TO SNF. DID NOT WANT TO GIVE CONSENT. CM TRIED SEVERAL TIMES THEN TRIED THIS MORNING. THIS MORNING HE HAD TOLD THE RESIDENT THAT HE WAS THINKING ABOUT [facility]. CM WENT TO GET CONSENT PATIENT NOW SAYING THAT WILL BRING PROSTHETIC SO THAT HE CAN WITH PHYSICAL THERAPY TRY TO GET INTO [facility]. CM LET RESIDENT KNOW OF CONVERSATION AND NURSE. SARWAT DID EXPLAIN TO PATIENT THAT HE CAN NOT STAY HERE TO GET PT FOR PROSTHETIC AND TRANSFERRING. IF DOES NOT DO WELL WITH PT THEN WILL NEED TO DECIDE HOME WITH HOME HEALTH OR SNF AT [place]. Addendum: 11/15/24 at 1244 by IAN MONROE RN CM Amended: Links added.
--- NOTE | 2024-11-15 16:53 | NUR ---
DC PLAN PATIENT CHANGED PLAN SAID THAT STILL NOT ABLE TO GET UP TO CHAIR. PATIENT WAITED FOR TO COME TO ROOM. DECIDED ON [facility]. PACKET SENT. MAIN ISSUE IS THAT PATIENT HAS AT HOME DIALYSIS WILL NEED TO GO TO A FACILITY THAT DOES IN HOUSE DIALYSIS AND THERE ARE ONLY 2 [facility] THAT OFFERS IN HOUSE DIALYSIS. Addendum: 11/15/24 at 1700 by IAN MONROE RN CM Amended: Links added.
--- NOTE | 2024-11-15 17:16 | PN ---
[facility] PROGRESS NOTE Date of Service: Nov 15, 2024 Time of Service: 16:49 SUBJECTIVE: 11/07/24: Patient evaluated at bedside with family present. Patient was in pain in his left leg. Patient was given 1 mg of Dilaudid 30 minutes before but he wa s still in pain. Given the patient's persistent high pain score, with ESRD and stable clinical status (alert, oriented, respiratory rate and O2 saturation within normal limits) an increased dose of 1.5 mg IV hydromorphone was ordered for more effective pain control. We will monitor for efficacy and signs of over- sedation. Patient stable with temperature at 98.1 pulse 103, respiratory rate 21, blood pressure 133/88 and the pulse ox of 95 on room air. His labs today showed his WBC dropping to 17.5 from 21.9 yesterday, his hemoglobin also dropped to 8.5 from 9.0. Patient's creatinine was at 7.2 and BUN at 91 he is due for dialysis today. 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 Jackson saw him today in the morning and assess that he has wet gangrene to the left forefoot and a necrotic left heel ulcer, he also has nonoperable peripheral vascular disease and has ischemic rest pain. He also mentioned that the patient is a candidate for a jnmfw-arq-wsoy amputation. He may Brittni reviewed by Dr. Jordan, who is the surgeon. From surgical standpoint they ordered CTA of the abdomen aorta with runoff to access for any vascular abnormalities and if any cardiovascular interventions needed before surgical intervention. Patient is likely to be scheduled for left BKA by Dr. Jordan. Patient was made aware of the plan and he agrees. 11/08/24: Patient evaluated bedside without his family present. Patient was still in pain in his left leg after being given 1.5 mg Dilaudid. Patient refused dialysis yesterday because of his pain so today his creatinine increased to 8.1 from 7.2 yesterday his BUN increased to 96 from 91 yesterday. Spoke to the patient regarding this and he agreed to have his dialysis performed today, hopefully his labs will improve after dialysis. His WBC did decrease to 15.8 from 17.5 yesterday. Patient had a popliteal nerve block for pain management perform yesterday night by the anesthesiologist he still says that the pain is only 30% resolved. Dr. Vizcaino the Infectious Disease specialist saw the patient today and recommended to continue vancomycin and levofloxacin. He is also scheduled for CTA of the abdomen aorta with runoff to access for any vascular abnormalities and if any cardiovascular interventions needed before surgical intervention. His surgery has been scheduled for tomorrow. 11/09/24: Patient evaluated at bedside with his present. Patient is stable but still in pain. He also had episodes of vomiting even on Zofran. Will consult GI after the patients BKA. The BKA has been scheduled for tomorrow. Patient underwent CTA Chest today as preop, still waiting on the report. Patient has also been started on Zofran 40 mg IV. Continuing patients antibiotics of vancomycin and levofloxacin. Patients labs have improved since he got dialysed yesterday. His Creatine has improved from 8.1 to 6.3 and his Bun has gone down to 56 from 96. 11/10/24: Patient evaluated at bedside with his present. Patient is stable but still in pain. He is scheduled to undergo left BKA surgery in the afternoon. Patient had a CTA ABDAOR - CT ANGIO ABD AORTA W RUNOFF performed yesterday which showed diffuse atherosclerotic changes with multilevel focal occlusions segment of the right superficial femoral artery and the right popliteal artery and the trifurcation vessels. Patient's creatinine went down to 5.0 from 6.3 and BUN to 37 from 56. Patient's went to bring that left foot culture came back positive for Gram-negative rods and Gram-positive cocci resistant to gentamicin and sensitive to vancomycin so continuing the patient on vancomycin and levofloxacin 11/11/24: The patient is postoperative day 1 from a left below-knee amputation (BKA). He remains hemodynamically stable with no acute events overnight. He denies nausea or vomiting, is tolerating diet well, and is passing flatus. He continues to report pain, for which he received1 mg of IV Dilaudid. He is currently receiving antibiotic therapy with Levaquin and Zosyn. Hemodialysis was performed today with a net removal of 1.6 L. Pre dialysis labs revealed sodium 131, potassium 5.2, BUN 46, creatinine 6.3, WBC 13.9, hemoglobin 8.2, platelet 172. Repeat laboratory testing is planned for tomorrow morning. The patient was advised to begin gentle flexion and extension exercise of the left knee. The surgical dressing will remain in place for 3 days. We will await further recommendation from the Surgical and Infectious Disease teams. The patient has expressed a strong preference for discharge with home health service and has declined transfer to a group home facility for rehabilitation. 11/12/24: The patient is postoperative day 2 from a left below-knee amputation (BKA). He remains hemodynamically stable with no acute events overnight. He denies nausea or vomiting, is tolerating diet well, and is passing flatus. He continues to report pain, for which he received1 mg of IV Dilaudid and 100 mg of gabapentin. He is currently receiving antibiotic therapy with Levaquin and Zosyn. Hemodialysis was performed yesterday with a net removal of 1.6 L. This morning CBC 14.8, hemoglobin 7.4, sodium 137, potassium 4, magnesium 1.8, creatinine 4.4. The patient was advised to begin gentle flexion and extension exercise of the left knee. The surgical dressing will remain in place for 3 days. We will await further recommendation from the Surgical and Infectious Disease teams. Physical therapy consulted. The patient has expressed a strong preference for discharge with home health service and has declined transfer to a group home facility for rehabilitation. 11/13/24: The patient is postoperative day 3 from a left below-knee amputation (BKA). He remains hemodynamically stable with no acute events overnight. He denies nausea or vomiting, is tolerating diet well, and is passing flatus but no bowel movement yet so we started the patient on lactulose. He continues to report pain, we have discontinued the IV Dilaudid and put him on p.o. hydromorphone and also fentanyl patches. He is currently receiving antibiotic therapy with Levaquin and Zosyn. We are waiting for recommendation from Dr. Vizcaino the infectious disease specialist regarding antibiotics during di scharge. His hemoglobin has dropped to 7 today so we gave him Venofer, we will see if he improves or if he requires transfusion. Hemodialysis will be performed tomorrow. This morning CBC 10.1, hemoglobin 7.0, sodium 138, potassium 4.0, creatinine 6.0. The patient was advised to begin gentle flexion and extension exercise of the left knee. The surgical dressing will remain in place for 3 days. Placed a PT evaluation to make sure he can transfer from bed to wheelchair. We are also waiting on the surgeon's recommendation for wound care. Once the above orders have been completed the patient can be discharged home with home health service. The patient has expressed a strong preference for discharge with home health service and has declined transfer to a group home facility for rehabilitation. 11/14/24: The patient is postoperative day 4 from a left below-knee amputation (BKA). He is hemodynamically stable with no acute events overnight. The change made yesterday from IV Dilaudid to hydromorphone p.o. helped patient with his pain and led him to have a peaceful night sleep. Infectious Disease said we could discharge him without any antibiotics. Antibiotics have been discontinued. Surgery placed the necessary wound care recommendations. Patient had a physical therapy session today after which he decided that he would go to rehab instead of home health. Physical therapy also recommends physical therapy, so case management has been notified. Today we change the pain medication to Tylenol-codeine tablets with fentanyl patch. We will see how the patient does on the new medication and also waiting on case management for placement to group home facility for rehabilitation. 11/15/24: The patient is postoperative day 5 from a left below-knee amputation (BKA). He is hemodynamically stable with no acute events overnight. Patient could not tolerate Tylenol codeine tablets yesterday so he was changed back to hydromorphone p.o. after which he was able to sleep peacefully. Patient is still in pain. Patient noncompliant with performing physical therapy. Got recommendation from the surgical team "per surgical team, okay to care for surgical incision by cleansing with NS, covering site with Vaseline gauze, applying 4 x4, wrapping with Kerlix, and wrapping site with an Giuseppe bandage daily". At this point we are waiting for acceptance to group home facility for rehabilitation. REVIEW OF SYSTEMS CONSTITUTIONAL: Denies fevers, chills, or night sweats. No unintentional weight loss reported. MUSCULOSKELETAL: Mgxeh-igp-sfhs amputation on the right. Left lower extremity pos up from BKA. Pain at surgical site. NEUROLOGICAL: Denies headache, amaurosis fugax, motor weakness, sensory deficit, vertigo/spinning sensation, gait abnormalities, or tremors. ENT: No hearing loss, otalgia, otorrhea, rhinitis, rhinorrhea, hoarseness, or sore throat. CARDIOVASCULAR: Denies any exertional angina, dyspnea on exertion, orthopnea, paroxysmal nocturnal dyspnea, palpitations, life-threatening arrhythmias, claudication. PULMONARY: Denies any shortness of breath, cough, phlegm/sputum, hemoptysis, pleuritic chest pain. GASTROINTESTINAL: Denies any type of dysphagia to either liquids or solids. Denies nausea, vomiting, pyrosis, early satiety, abdominal pain, diarrhea, constipation, or changes in stool consistency or caliber. GENITOURINARY: Denies frequency, urgency, nocturia, hematuria or incontinence ENDOCRINOLOGIC: Denies polyuria, polydipsia, polyphagia or heat/cold intolerances. HEMATOLOGIC: Denies thrombophilia/previous clots, or coagulopathy/bleeding disorders. DERMATOLOGIC: Denies rashes or pruritus. PSYCHIATRIC: Denies any suicidal or homicidal ideation. Denies hallucinations. PHYSICAL EXAM GENERAL APPEARANCE: The patient is awake, alert, and oriented, in no acute cardiopulmonary distress. NEUROLOGICAL: Motor is 5/5 in bilateral upper and lower extremities proximal to distal. No sensory deficits. HEENT: Face is symmetric. Pupils are equal and reactive. Extraocular movements are intact. NECK: Supple. No JVD. No thyromegaly. No submental, submandibular, pre-/postauricular, occipital or supraclavicular lymphadenopathy. CHEST: Normal chest expansion. No Telemetry. LUNGS: Absence of any rales, rhonchi or any wheezing. CARDIOVASCULAR: Regular. S1 and S2 normal. No appreciable rubs, murmurs or gallops. ABDOMEN: Soft, nontender, and nondistended. There is no rebound, voluntary guarding, or rigidity. : Deferred. No Hutson. EXTREMITIES: Left lower extremity with surgical dressing in place over BKA site, clean, dry, and intact. Mild postop tenderness. BKA of RLE SKIN: No skin breakdown. Vital Signs (last 8hr) Date Time Temp Pulse Resp B/P (MAP) Pulse Ox O2 Delivery O2 Flow Rate FiO2 11/15/24 16:00 98.2 98 17 143/73 95 Room Air 21 11/15/24 13:39 117/44 11/15/24 12:00 97.9 68 17 111/48 90 Room Air 21 LABS: Laboratory: Test 11/15/24 15:39 11/15/24 05:48 11/14/24 15:40 11/14/24 05:25 Range/Units Whole Blood Glucose 140 #H 70-110 MG/DL White Blood Count 10.6 4.8-10.8 K/uL Red Blood Count 2.77 L 4.50-6.20 MIL/uL Hemoglobin 8.3 L 14.0-18.0 g/dL Hematocrit 26.3 L 42-54 % Mean Corpuscular Volume 94.9 79-99 fL Mean Corpuscular Hemoglobin 30.0 27.0-33.0 pg Mean Corpuscular Hemoglobin Concent 31.6 L 32.0-36.0 g/dL Red Cell Distribution Width 15.9 H 11.0-15.5 % Platelet Count 199 130-400 K/uL Mean Platelet Volume 10.4 7.5-10.5 fL Nucleated Red Blood Cells 0.0 0.0-0.19 % Sodium Level 138 136-145 mmol/L Potassium Level 4.1 3.5-5.1 mmol/L Chloride Level 100 L 101-111 mmol/L Carbon Dioxide Level 33 H 21-32 mmol/L Blood Urea Nitrogen 24 H 7-18 mg/dL Creatinine 4.7 H 0.5-1.3 mg/dL Glomerular Filtration Rate Calc 13 >90 mL/min Random Glucose 221 H 70-105 mg/dL Total Calcium 7.0 L 8.5-10.1 mg/dL Bedside Glucose Comment Notified Nurse Total Bilirubin 0.3 # 0.2-1.0 mg/dL Aspartate Amino Transf (AST/SGOT) 13 10-37 U/L Alanine Aminotransferase (ALT/SGPT) 6 L 12-78 U/L Alkaline Phosphatase 101 50-136 U/L Total Protein 5.3 L 6.0-8.3 g/dL Albumin 1.7 L 3.5-5.0 g/dL Current Medications Medications (Trade) Dose Ordered Sig/Idania Route PRN Reason Start Time Stop Time Status Last Admin Dose Admin Acetaminophen/ Codeine Phosphate (TYLenol-coDEINE TAB) 1 tab Q4H PRN PO MODERATE PAIN (4-6) 11/14/24 13:00 11/14/24 19:39 DC Acetaminophen/ Hydrocodone Bitart (NORco 5/325MG) 1 tab Q4H PRN PO MODERATE PAIN (4-6) 11/06/24 13:30 11/07/24 01:21 DC Acetaminophen/ Hydrocodone Bitart (NORco 5/325MG) 1 tab Q6H PRN PO SEVERE PAIN (7-10) 11/14/24 10:00 11/14/24 19:39 DC 11/14/24 18:11 1 TAB Acetaminophen/ Hydrocodone Bitart (NORco 5/325MG) 2 tab Q4H PRN PO SEVERE PAIN (7-10) 11/06/24 13:30 11/07/24 01:21 DC 11/06/24 22:09 2 TAB Acetaminophen/ Hydrocodone Bitart (NORco 5/325MG) 2 tab Q8H PO 11/07/24 13:00 11/07/24 13:45 DC Acetaminophen/ Hydrocodone Bitart (NORco 5/325MG) 2 tab Q8H PRN PO PAIN LEVEL 7 TO 10 11/07/24 14:00 11/07/24 13:57 DC Acetaminophen/ Hydrocodone Bitart (NORco 5/325MG) 2 tab Q8H PRN PO MODERATE PAIN (4-6) 11/07/24 18:30 11/12/24 18:29 DC 11/12/24 08:50 2 TAB Albumin Human (Albumin (Human) 25%) 100 ml ONCE IV 11/14/24 14:00 11/15/24 13:59 DC 11/14/24 13:59 100 ML Atorvastatin Calcium (LIPItor 40MG) 40 mg HS PO 11/06/24 21:00 12/06/24 20:59 11/14/24 19:59 40 MG Dextrose (D50w) 50 ml AD PRN IV HYPOGLYCEMIA PROTOCOL 11/06/24 14:30 12/06/24 14:29 11/10/24 13:43 25 ML Enoxaparin Sodium (Lovenox) 30 mg DAILY SQ 11/07/24 09:00 12/07/24 08:59 11/15/24 08:58 30 MG Famotidine (Pepcid 20mg Tab) 20 mg QTUTHSA@2100 PO 11/06/24 21:00 11/09/24 11:34 DC 11/06/24 21:10 20 MG Fentanyl (DURAgesic 12 MCG/HR PATCH) 12 mcg Q72H TD 11/14/24 10:00 11/14/24 10:09 DC Gabapentin (NEURontin 100 mg CAP) 100 mg TID PO 11/12/24 21:00 12/12/24 20:59 11/15/24 13:40 100 MG Glucagon (Glucagon 1mg Kit) 1 mg AD PRN IM HYPOGLYCEMIA PROTOCOL 11/06/24 14:30 12/06/24 14:29 Heparin Sodium (Porcine) (HEParin 5,000 UNIT VIAL) 10,000 unit AD IRRIG 11/08/24 15:00 12/08/24 14:59 11/14/24 16:37 10,000 UNIT Hydromorphone HCl (DiLAUDid 1MG INJ) 1 mg Q4H PRN IVP SEVERE PAIN (7-10) 11/07/24 08:00 11/12/24 07:59 DC 11/12/24 02:15 1 MG Hydromorphone HCl (DiLAUDid 1MG INJ) 1 mg Q4H PRN IVP SEVERE PAIN (7-10) 11/12/24 09:00 11/13/24 12:19 DC 11/13/24 08:42 1 MG Hydromorphone HCl (DiLAUDid 2MG TAB) 2 mg Q6H PRN PO SEVERE PAIN (7-10) 11/13/24 12:30 11/14/24 10:03 DC 11/14/24 09:33 2 MG Hydromorphone HCl (DiLAUDid 2MG TAB) 2 mg Q6H PRN PO SEVERE PAIN (7-10) 11/14/24 20:00 11/21/24 19:59 11/15/24 16:05 2 MG Insulin Glargine (LANtus 100 UNITS/ML 10 ML VIAL) 10 units HS SQ 11/06/24 21:00 11/07/24 11:22 DC 11/06/24 21:15 10 UNITS Insulin Human Regular (humuLIN R 100 UNIT/ML 3ML) INSULIN SLIDING SCAL... ACHS SQ 11/06/24 16:30 12/06/24 16:29 11/15/24 06:14 3 UNIT Lactulose (Constulose 20gm/ 30ml Udcup) 20 gm BID PRN PO CONSTIPATION 11/13/24 12:30 12/13/24 12:29 11/15/24 13:02 20 GM Leptospermum Honey (Medihoney) 1 APPL DAILY16 TP 11/07/24 16:00 12/07/24 15:59 11/15/24 13:02 1 APPL Levofloxacin/ Dextrose (LEvaquIN 500 MG/ D5W 100 ML) 500 mg Q48H IV 11/06/24 16:00 11/13/24 12:35 DC 11/12/24 17:11 500 MG Lidocaine (Lidoderm Patch 5%) 1 patch DAILY TP 11/09/24 20:00 12/09/24 19:59 11/15/24 08:58 1 PATCH Morphine Sulfate (morPHINE 2MG SYG) 2 mg Q4H PRN IVP SEVERE PAIN (7-10) 11/07/24 01:30 11/07/24 08:00 DC 11/07/24 02:34 2 MG Nifedipine (adALAT 30MG) 60 mg Q24H PO 11/06/24 14:30 12/06/24 14:29 11/13/24 13:06 60 MG Ondansetron HCl (zoFRAN 4MG INJ) 4 mg Q6H PRN IVP NAUSEA/VOMITING 11/07/24 19:30 12/07/24 19:29 11/09/24 11:33 4 MG Pantoprazole Sodium (PROTonix 40MG INJ) 40 mg DAILY IVP 11/10/24 09:00 12/10/24 08:59 11/15/24 08:57 40 MG Pantoprazole Sodium (PROTonix 40MG INJ) 40 mg DAILY IVP 11/10/24 09:00 12/10/24 08:59 UNV Pharmacy Profile Note (Lace Assessment) 1 each AD MISC 11/07/24 11:30 11/07/24 11:35 DC Sevelamer HCl (RENAgel 800 MG TAB) 400 mg TIDMEALS PO 11/09/24 12:00 12/09/24 11:59 11/15/24 12:10 400 MG Sodium Chloride 1,000 ml @ 0 mls/hr ONCE IV 11/08/24 15:00 12/08/24 14:59 11/14/24 13:59 100 MLS/HR Tramadol HCl (UltRAM) 50 mg Q6H PRN PO MODERATE PAIN (4-6) 11/07/24 01:30 11/07/24 18:09 DC Vancomycin HCl 250 ml @ 166.667 mls/hr QTUSA IV 11/07/24 09:00 11/06/24 13:22 DC Vancomycin HCl 250 ml @ 166.667 mls/hr QTUTHSA[DIALYSIS] IV 11/07/24 16:00 11/11/24 06:25 DC 11/09/24 15:44 166.667 MLS/HR Vancomycin HCl (Vancomycin 750mg) 750 mg QTUTHSA[DIALYSIS] IVPB 11/11/24 16:00 11/13/24 12:35 DC 11/11/24 16:08 750 MG Vancomycin HCl (Vancomycin Protocol) 1 each AD IV 11/06/24 13:30 11/13/24 12:35 DC DIAGNOSTICS / RADIOLOGY: [ ] ASSESSMENT: Sepsis POA Left foot gangrene Postoperative day left below-knee amputation ESRD on dialysis , , POA Acute blood loss anemia Uncontrolled DM II Chronic anemia with anemia of renal disease POA History of chronic corticosteroid use as outpatient with the prednisolone POA Psoriatic POA Uncontrolled hypertension POA PAD POA Recent history of hospitalization [facility] for infected right BKA stump with osteomyelitis on IV antibiotics outpatient Recent Cultures wound positive for MRSA and MDRO E coli Recent history of right BKA site debridement 07/21/2024 followed by delayed primary closure on 07/24/[address] Montes PLAN: Sepsis POA, resolving * patient improving with the antibiotics he has been receiving, WBC at 11.4 today * Discontinue vancomycin and levofloxacin * Patient afebrile with current temperature at 97.5 * We will follow recommendations from Infectious Disease. Post operative day 5 left below-knee amputation (BKA) * Patient stable with no postop complications overnight * Got recommendation from the surgical team "per surgical team, okay to care for surgical incision by cleansing with NS, covering site with Vaseline gauze, applying 4 x4, wrapping with Kerlix, and wrapping site with an Giuseppe bandage daily". * Encourage left knee flexion and extension exercises to preserve joint mobility * Continue patient on pain medication * Physical therapy consulted who recommended rehab ESRD on dialysis T, , POA * Patient underwent dialysis yesterday. Patient received 1 bag of blood transfusion during dialysis, his hemoglobin has improved today * His labs have also improved post dialysis Acute Blood Loss Anemia * Patient is hemoglobin level is at 0.2 Post transfusion during dialysis * Operative note mentions an estimated blood loss of 200 cc * Patient also received Venofer which helped increase hemoglobin level from 7 to 7.2 Before getting blood transfusion ATTESTATION BY PHYSICIAN I have seen and examined the patient. I reviewed the documentation, medical decision making, and treatment plan as noted by the resident provider above. I agree with the findings and plan of care. Elan Riley MD, ABHINAV MD Nov 15, 2024 17:16
--- NOTE | 2024-11-15 21:29 | PN ---
NEPHROLOGY FOLLOWUP SUBJECTIVE: The patient offers no new complaints. No major events reported. OBJECTIVE: GENERAL: Not in any acute distress. VITAL SIGNS: Blood pressure 115/53, respirations 17, pulse 98, temperature 98.4. LUNGS: Clear on auscultation and inspection. HEART: Normal cardiac exam. ABDOMEN: Soft, nondistended. EXTREMITIES: No edema. LABORATORY DATA: WBC count is 7.6, hemoglobin 8.3, sodium 138, potassium 4.1, BUN 24, creatinine 4.7. ASSESSMENT: * End-stage renal disease, on hemodialysis. The patient dialyzes on TTS. * Diabetes mellitus type 2 with nephropathy. * Hypertension. * Peripheral arterial disease. * Diabetic foot infection. * Severe protein caloric malnutrition. PLAN: * Continue renal diet. * Continue wound care. * Dialysis to continue as per regular schedule. TID: [id number] RECEIPT: [id number]
--- NOTE | 2024-11-15 22:59 | PN ---
INFECTIOUS DISEASE PROGRESS NOTE Date of Service: Nov 15, 2024 SUBJECTIVE: Patient was seen and examined at bedside in room 318. Patient is status post left zoogc-qnb-xclz amputation on 11/10/2024. Per report patient will be fitted for prosthesis to the right hhhvh-svj-nyuf stump tomorrow. Explained to patient that the right stump is not ready to be fitted yet due to still not heal completely. Patient understands. No fever, temperature is 97.9 and a WBC of 10.6. Patient was dialyzed yesterday and 1.8 L removed. No reports of nausea or vomiting. Patient has been able to participate with physical therapy and Case management working on SNF placement. PHYSICAL EXAM EYES: Anicteric. Pupils equal and reactive. HENT: No oral thrush seen, moist Oral mucosa. NECK: Supple, no JVD or thyromegaly. LUNGS: Good air entry. No rales, no rhonchi. CARDIOVASCULAR: S1, S2 regular. No murmur heard. ABDOMEN: Soft, non tender, bowel sounds present, no organomegaly. CENTRAL NERVOUS SYSTEM: Awake, alert, oriented x 3. SKIN: No rashes, no swelling. LYMPHATICS: No peripheral lymphadenopathy MUSCULOSKELETAL: No joint swelling, erythema or tenderness. Left foot diabetic ulcer with gangrene, s/p left hbqiv-iyc-qraz amputation on 11/10/2024. History of Right mbumy-rwo-jmtj amputation. EXTREMITIES: No cyanosis or clubbing. BACK: No deformity, no pressure ulcer. GENITOURINARY: No dysuria or hematuria. Vital Sign (Last 12 Hours) 11/15/24 11/15/24 11/15/24 11/15/24 12:00 13:39 16:00 20:00 Temp 97.9 98.2 98.4 Pulse 68 98 94 Resp 17 17 17 B/P (MAP) 111/48 117/44 143/73 115/53 Pulse Ox 90 95 91 O2 Delivery Room Air Room Air Room Air FiO2 21 21 11/15/24 20:00 O2 Delivery Room Air* O2 Flow Rate 0 FiO2 21 Intake & Output (last 24hrs) 11/14/24 11/14/24 11/15/24 15:00 23:00 07:00 Intake Total 120 ml Output Total 1950 ml Balance -1830 ml LABS: Laboratory: Test 11/15/24 20:39 11/15/24 05:48 11/14/24 15:40 11/14/24 05:25 Range/Units Whole Blood Glucose 142 H 70-110 MG/DL White Blood Count 10.6 4.8-10.8 K/uL Red Blood Count 2.77 L 4.50-6.20 MIL/uL Hemoglobin 8.3 L 14.0-18.0 g/dL Hematocrit 26.3 L 42-54 % Mean Corpuscular Volume 94.9 79-99 fL Mean Corpuscular Hemoglobin 30.0 27.0-33.0 pg Mean Corpuscular Hemoglobin Concent 31.6 L 32.0-36.0 g/dL Red Cell Distribution Width 15.9 H 11.0-15.5 % Platelet Count 199 130-400 K/uL Mean Platelet Volume 10.4 7.5-10.5 fL Nucleated Red Blood Cells 0.0 0.0-0.19 % Sodium Level 138 136-145 mmol/L Potassium Level 4.1 3.5-5.1 mmol/L Chloride Level 100 L 101-111 mmol/L Carbon Dioxide Level 33 H 21-32 mmol/L Blood Urea Nitrogen 24 H 7-18 mg/dL Creatinine 4.7 H 0.5-1.3 mg/dL Glomerular Filtration Rate Calc 13 >90 mL/min Random Glucose 221 H 70-105 mg/dL Total Calcium 7.0 L 8.5-10.1 mg/dL Bedside Glucose Comment Notified Nurse Total Bilirubin 0.3 # 0.2-1.0 mg/dL Aspartate Amino Transf (AST/SGOT) 13 10-37 U/L Alanine Aminotransferase (ALT/SGPT) 6 L 12-78 U/L Alkaline Phosphatase 101 50-136 U/L Total Protein 5.3 L 6.0-8.3 g/dL Albumin 1.7 L 3.5-5.0 g/dL ASSESSMENT: Left foot diabetic ulcer with gangrene and osteomyelitis, s/p left xtcez-qsw-cmxf amputation on 11/10/2024. Sepsis, resolved. Leukocytosis, resolved. End-stage renal disease, on dialysis. Diabetes mellitus. Anemia with a history of blood transfusion. Psoriasis. PLAN: Continue pain management. Continue wound care. Continue physical therapy. Continue dialysis as recommended by scout. No antibiotics needed on discharge. Patient has been able to participate with physical therapy and Case management working on SNF placement. This case was reviewed and discussed with my supervising physician and the above assessment and plan was formulated and agreed upon. ATTESTATION BY PHYSICIAN I have seen and examined the patient. I reviewed the documentation, medical decision making, and treatment plan as noted by the mid-level provider above. I agree with the findings and plan of care. ENEDELIA GUAMAN MD, MIRTA L [facility] Nov 15, 2024 22:59
[2024-11-16] VITALS (24 sets, daily range): BP systolic 100–163; BP diastolic 52–99; PULSE 53–97; RESP 16–18; TEMP 97.8–99.3; O2SAT 92–97
[2024-11-16 06:02] LABS: NUCLEATED RED BLOOD CELLS 0.0 % (0.0-0.19); PLATELET COUNT (AUTO) 262.0 K/uL (130-400); RED BLOOD CELL COUNT(AUTO) 2.92 MIL/uL (4.50-6.20); RED CELL DISTRIBUTION WIDTH 15.6 % (11.0-15.5); WHITE BLOOD COUNT (AUTO) 10.8 K/uL (4.8-10.8)
[2024-11-16 06:19] LABS: CREATININE 6.6 mg/dL (0.5-1.3); GLOMERULAR FILTR. RATE CALC 9.0 mL/min (>90); GLUCOSE,RANDOM 157.0 mg/dL (70-105); SODIUM SERUM 137.0 mmol/L (136-145); UREA NITROGEN, BLOOD 30.0 mg/dL (7-18)
--- NOTE | 2024-11-16 13:00 | NUR ---
[facility] Follow-up: Patient re-assessed by wound healing team. See wound assessment. Assessment and recommendations provided to primary nurse. Education provided. Wound care done to left buttock and LBKA. Addendum: 11/16/24 at 1444 by JONATHAN OVIEDO RN RN/ Amended: Links added.
--- NOTE | 2024-11-16 14:19 | NUR ---
[facility] NO DIALYSIS AND SPOKE TO [facility] SAID THEY DO HAVE DIALYSIS. LET PATIENT KNOW SAID OKAY FOR [facility]. PACKET SENT. GOT INFO FOR US RENAL FROM PATIENT ARELY [phone] FOR US RENAL PER NURSE SAID THAT HE WAS AT [facility] BUT NOW MOVED TO [facility] [phone] FAX [phone]. GAVE INFO TO JASON COX FOR [facility]. Addendum: 11/16/24 at 1424 by IAN MONORE RN CM Amended: Links added.
--- NOTE | 2024-11-16 14:33 | CONS ---
CONSULTATION NOTE Date of Service: Nov 14, 2024 Reason for Consultation: [ stage III ulcer to left buttock ] Requesting Physician: [ Dr. Riley ] HISTORY OF PRESENT ILLNESS: Patient is being evaluated at the bedside in room 318 for evaluation of stage 3 ulcer to left buttock. Patient is a 59 year old male with a past medical history of ESRD on dialysis 3x per week (T, Th, S), DM II, hypercholesterolemia, hypertension, and psoriasis, and chronic prednisolone use who presents to the ED for left toe necrosis followed by Dr Jackson with recent left below the knee amputation on 11/10/24. REVIEW OF SYSTEMS CONSTITUTIONAL: Denies fever, chills, or fatigue. HEAD/FACE: No signs of trauma. EENT: Denies eye pain, blurred vision, double vision, or light sensitivity. RESPIRATORY: Denies shortness of breath, cough, wheezing CARDIOVASCULAR: Denies chest pain, palpitation, syncope GASTROINTESTINAL/ABDOMINAL: Denies abdominal pain, constipation, diarrhea, nausea or vomiting GENITOURINARY: Denies dysuria or hematuria. MUSCULOSKELETAL: right and left bka INTEGUMENTARY: stage 3 ulcer to left buttock NEUROLOGICAL/PSYCH: Denies anxiety, depression, heat or cold intolerance. PAST MEDICAL HISTORY: ESRD dialysis, hypertension, hyperlipidemia, diabetes, peripheral artery disease, psoriasis, chronic prednisolone use, right osteomyelitis, recent MRSA/MDRO E coli right foot PAST SURGICAL HISTORY: AV graft, cholecystectomy, neck and wrist surgery, right BKA 05/30/2024, history of recent debridement of right BKA site with wound placement on 07/21/2024 with delayed primary closure on 07/24/2024 and wound VAC removal by Dr. Kincaid, right BKA PAST SOCIAL HISTORY: Patient denies tobacco, alcohol or drug illicit FAMILY HISTORY: Patient lives at home with the family members in [place] . Patient uses wheelchair for ambulation s/p right BKA] Coded Allergies: Penicillins (Unverified Allergy, Unknown, 01/14/24) Sulfa (Sulfonamide Antibiotics) (Unverified Allergy, Unknown, 01/14/24) PHYSICAL EXAM EYES: Anicteric. Pupils equal and reactive. HENT: No oral thrush seen, moist Oral mucosa NECK: Supple, no JVD or thyromegaly. LUNGS: Good air entry. No rales, no rhonchi. CARDIOVASCULAR: S1, S2 regular. No murmur heard. ABDOMEN: Soft, non tender, bowel sounds present, no organomegaly CENTRAL NERVOUS SYSTEM: Awake, alert, oriented x 3. No focal deficits. SKIN: stage 3 ulcer to left buttock with mild periwound erythema noted with 100% granulation with no drainage noted. LYMPHATICS: No peripheral lymphadenopathy MUSCULOSKELETAL: right and left bka EXTREMITIES: No cyanosis or clubbing BACK: No deformity, no pressure ulcer. GENITOURINARY: No dysuria or hematuria Vital Sign (Last 24 Hours) 11/15/24 11/16/24 20:00 12:00 Temp 98.1 Pulse 80 Resp 18 B/P (MAP) 131/55 Pulse Ox 90 O2 Delivery Room Air O2 Flow Rate 0 FiO2 21 Intake & Output (last 24hrs) 11/15/24 11/15/24 11/16/24 15:00 23:00 07:00 Intake Total 1420.0 ml 120 ml Output Total 0 ml Balance 1420.0 ml 120 ml LABS: Laboratory: Test 11/16/24 12:33 11/16/24 05:54 11/14/24 15:40 Range/Units Whole Blood Glucose 114 H 70-110 MG/DL White Blood Count 10.8 4.8-10.8 K/uL Red Blood Count 2.92 L 4.50-6.20 MIL/uL Hemoglobin 8.7 L 14.0-18.0 g/dL Hematocrit 28.1 L 42-54 % Mean Corpuscular Volume 96.2 79-99 fL Mean Corpuscular Hemoglobin 29.8 27.0-33.0 pg Mean Corpuscular Hemoglobin Concent 31.0 L 32.0-36.0 g/dL Red Cell Distribution Width 15.6 H 11.0-15.5 % Platelet Count 262 # 130-400 K/uL Mean Platelet Volume 10.4 7.5-10.5 fL Nucleated Red Blood Cells 0.0 0.0-0.19 % Sodium Level 137 136-145 mmol/L Potassium Level 3.9 3.5-5.1 mmol/L Chloride Level 99 L 101-111 mmol/L Carbon Dioxide Level 32 21-32 mmol/L Blood Urea Nitrogen 30 H 7-18 mg/dL Creatinine 6.6 H 0.5-1.3 mg/dL Glomerular Filtration Rate Calc 9 >90 mL/min Random Glucose 157 H 70-105 mg/dL Total Calcium 7.6 L 8.5-10.1 mg/dL Bedside Glucose Comment Notified Nurse DIAGNOSTICS / RADIOLOGY: EXAMINATION: SPECTRAL DOPPLER ULTRASOUND EXAMINATION OF THE LEFT LOWER EXTREMITY VEINS. CLINICAL HISTORY: To assess venous flow. COMPARISON: None provided. TECHNIQUE: Real-time ultrasound scan of the veins of the left lower extremity with color Doppler flow, spectral waveform analysis and compression. FINDINGS: DEEP VEINS: The common femoral, superficial femoral (proximal and distal), and popliteal veins are echolucent and compressible. There is normal color Doppler flow throughout. The visualized calf veins appear patent. There are echogenic strands in the mid superficial femoral vein, however flow is present and the vein is partially compressible. SUPERFICIAL VEINS: The greater saphenous veins are patent and compressible. SOFT TISSUES: No popliteal fossa cyst or other abnormalities. IMPRESSION: Linear echogenic strands in the left mid superficial femoral vein, reflecting chronic thrombosis with recanalization. No deep venous thrombosis evident in the remainder of the left lower extremity. No superficial thrombophlebitis in the left lower extremity. /[place] ASSESSMENT: stage 3 ulcer to left buttock PLAN: Wound care to left buttock: cleanse with normal saline, pat dry, apply medihoney, cover with alleyn, change daily and prn Reposition every 2 hours/offloading highly recommended Comorbidities per primary care team Further management per hospital course. Thank you for the consult and allowing us to participate in the care of the patient. Fran Sanford [facility] [place] [facility]- FRAN SANFORD NP Nov 16, 2024 14:33
--- NOTE | 2024-11-16 16:59 | PN ---
[facility] PROGRESS NOTE Date of Service: Nov 16, 2024 Time of Service: 16:58 SUBJECTIVE: 11/07/24: Patient evaluated at bedside with family present. Patient was in pain in his left leg. Patient was given 1 mg of Dilaudid 30 minutes before but he wa s still in pain. Given the patient's persistent high pain score, with ESRD and stable clinical status (alert, oriented, respiratory rate and O2 saturation within normal limits) an increased dose of 1.5 mg IV hydromorphone was ordered for more effective pain control. We will monitor for efficacy and signs of over- sedation. Patient stable with temperature at 98.1 pulse 103, respiratory rate 21, blood pressure 133/88 and the pulse ox of 95 on room air. His labs today showed his WBC dropping to 17.5 from 21.9 yesterday, his hemoglobin also dropped to 8.5 from 9.0. Patient's creatinine was at 7.2 and BUN at 91 he is due for dialysis today. The mower operator Dr. Jackson saw him today in the morning and assess that he has wet gangrene to the left forefoot and a necrotic left heel ulcer, he also has nonoperable peripheral vascular disease and has ischemic rest pain. He also mentioned that the patient is a candidate for a [id number] amputation. He may Brittni reviewed by Dr. Jordan, who is the surgeon. From surgical standpoint they ordered CTA of the abdomen aorta with runoff to access for any vascular abnormalities and if any cardiovascular interventions needed before surgical intervention. Patient is likely to be scheduled for left BKA by Dr. Jordan. Patient was made aware of the plan and he agrees. 11/08/24: Patient evaluated bedside without his family present. Patient was still in pain in his left leg after being given 1.5 mg Dilaudid. Patient refused dialysis yesterday because of his pain so today his creatinine increased to 8.1 from 7.2 yesterday his BUN increased to 96 from 91 yesterday. Spoke to the patient regarding this and he agreed to have his dialysis performed today, hopefully his labs will improve after dialysis. His WBC did decrease to 15.8 from 17.5 yesterday. Patient had a popliteal nerve block for pain management perform yesterday night by the anesthesiologist he still says that the pain is only 30% resolved. Dr. Vizcaino the Infectious Disease specialist saw the patient today and recommended to continue vancomycin and levofloxacin. He is also scheduled for CTA of the abdomen aorta with runoff to access for any vascular abnormalities and if any cardiovascular interventions needed before surgical intervention. His surgery has been scheduled for tomorrow. 11/09/24: Patient evaluated at bedside with his present. Patient is stable but still in pain. He also had episodes of vomiting even on Zofran. Will consult GI after the patients BKA. The BKA has been scheduled for tomorrow. Patient underwent CTA Chest today as preop, still waiting on the report. Patient has also been started on Zofran 40 mg IV. Continuing patients antibiotics of vancomycin and levofloxacin. Patients labs have improved since he got dialysed yesterday. His Creatine has improved from 8.1 to 6.3 and his Bun has gone down to 56 from 96. 11/10/24: Patient evaluated at bedside with his present. Patient is stable but still in pain. He is scheduled to undergo left BKA surgery in the afternoon. Patient had a CTA ABDAOR - CT ANGIO ABD AORTA W RUNOFF performed yesterday which showed diffuse atherosclerotic changes with multilevel focal occlusions segment of the right superficial femoral artery and the right popliteal artery and the trifurcation vessels. Patient's creatinine went down to 5.0 from 6.3 and BUN to 37 from 56. Patient's went to bring that left foot culture came back positive for Gram-negative rods and Gram-positive cocci resistant to gentamicin and sensitive to vancomycin so continuing the patient on vancomycin and levofloxacin 11/11/24: The patient is postoperative day 1 from a left below-knee amputation (BKA). He remains hemodynamically stable with no acute events overnight. He denies nausea or vomiting, is tolerating diet well, and is passing flatus. He continues to report pain, for which he received1 mg of IV Dilaudid. He is currently receiving antibiotic therapy with Levaquin and Zosyn. Hemodialysis was performed today with a net removal of 1.6 L. Pre dialysis labs revealed sodium 131, potassium 5.2, BUN 46, creatinine 6.3, WBC 13.9, hemoglobin 8.2, platelet 172. Repeat laboratory testing is planned for tomorrow morning. The patient was advised to begin gentle flexion and extension exercise of the left knee. The surgical dressing will remain in place for 3 days. We will await further recommendation from the Surgical and Infectious Disease teams. The patient has expressed a strong preference for discharge with home health service and has declined transfer to a [facility] facility for rehabilitation. 11/12/24: The patient is postoperative day 2 from a left below-knee amputation (BKA). He remains hemodynamically stable with no acute events overnight. He denies nausea or vomiting, is tolerating diet well, and is passing flatus. He continues to report pain, for which he received1 mg of IV Dilaudid and 100 mg of gabapentin. He is currently receiving antibiotic therapy with Levaquin and Zosyn. Hemodialysis was performed yesterday with a net removal of 1.6 L. This morning CBC 14.8, hemoglobin 7.4, sodium 137, potassium 4, magnesium 1.8, creatinine 4.4. The patient was advised to begin gentle flexion and extension exercise of the left knee. The surgical dressing will remain in place for 3 days. We will await further recommendation from the Surgical and Infectious Disease teams. Physical therapy consulted. The patient has expressed a strong preference for discharge with home health service and has declined transfer to a [facility] facility for rehabilitation. 11/13/24: The patient is postoperative day 3 from a left below-knee amputation (BKA). He remains hemodynamically stable with no acute events overnight. He denies nausea or vomiting, is tolerating diet well, and is passing flatus but no bowel movement yet so we started the patient on lactulose. He continues to report pain, we have discontinued the IV Dilaudid and put him on p.o. hydromorphone and also fentanyl patches. He is currently receiving antibiotic therapy with Levaquin and Zosyn. We are waiting for recommendation from Dr. Vizcaino the infectious disease specialist regarding antibiotics during di scharge. His hemoglobin has dropped to 7 today so we gave him Venofer, we will see if he improves or if he requires transfusion. Hemodialysis will be performed tomorrow. This morning CBC 10.1, hemoglobin 7.0, sodium 138, potassium 4.0, creatinine 6.0. The patient was advised to begin gentle flexion and extension exercise of the left knee. The surgical dressing will remain in place for 3 days. Placed a PT evaluation to make sure he can transfer from bed to wheelchair. We are also waiting on the surgeon's recommendation for wound care. Once the above orders have been completed the patient can be discharged home with home health service. The patient has expressed a strong preference for discharge with home health service and has declined transfer to a [facility] facility for rehabilitation. 11/14/24: The patient is postoperative day 4 from a left below-knee amputation (BKA). He is hemodynamically stable with no acute events overnight. The change made yesterday from IV Dilaudid to hydromorphone p.o. helped patient with his pain and led him to have a peaceful night sleep. Infectious Disease said we could discharge him without any antibiotics. Antibiotics have been discontinued. Surgery placed the necessary wound care recommendations. Patient had a physical therapy session today after which he decided that he would go to rehab instead of home health. Physical therapy also recommends physical therapy, so case management has been notified. Today we change the pain medication to Tylenol-codeine tablets with fentanyl patch. We will see how the patient does on the new medication and also waiting on case management for placement to [facility] facility for rehabilitation. 11/15/24: The patient is postoperative day 5 from a left below-knee amputation (BKA). He is hemodynamically stable with no acute events overnight. Patient could not tolerate Tylenol codeine tablets yesterday so he was changed back to hydromorphone p.o. after which he was able to sleep peacefully. Patient is still in pain. Patient noncompliant with performing physical therapy. Got recommendation from the surgical team "per surgical team, okay to care for surgical incision by cleansing with NS, covering site with Vaseline gauze, applying 4 x4, wrapping with Kerlix, and wrapping site with an Giuseppe bandage daily". At this point we are waiting for acceptance to [facility] facility for rehabilitation. 11/16/24: The patient is postoperative day 6 from a left below-knee amputation (BKA). He is hemodynamically stable with no acute events overnight. Patient is still in pain. Patient noncompliant with performing physical therapy. Patient had dialysis performed today. Patient's hemoglobin is improving and is currently 8.7. Patient has not had a bowel movement so started him on mineral oil. Wound care consult requested for an ulcer on his buttock. Waiting on acceptance to a [facility] facility for rehabilitation. REVIEW OF SYSTEMS CONSTITUTIONAL: Denies fevers, chills, or night sweats. No unintentional weight loss reported. MUSCULOSKELETAL: [id number] amputation on the right. Left lower extremity pos up from BKA. Pain at surgical site. NEUROLOGICAL: Denies headache, amaurosis fugax, motor weakness, sensory deficit, vertigo/spinning sensation, gait abnormalities, or tremors. ENT: No hearing loss, otalgia, otorrhea, rhinitis, rhinorrhea, hoarseness, or sore throat. CARDIOVASCULAR: Denies any exertional angina, dyspnea on exertion, orthopnea, paroxysmal nocturnal dyspnea, palpitations, life-threatening arrhythmias, claudication. PULMONARY: Denies any shortness of breath, cough, phlegm/sputum, hemoptysis, pleuritic chest pain. GASTROINTESTINAL: constipation Denies any type of dysphagia to either liquids or solids. Denies nausea, vomiting, pyrosis, early satiety, abdominal pain, diarrhea, or changes in stool consistency or caliber. GENITOURINARY: Denies frequency, urgency, nocturia, hematuria or incontinence ENDOCRINOLOGIC: Denies polyuria, polydipsia, polyphagia or heat/cold intolerances. HEMATOLOGIC: Denies thrombophilia/previous clots, or coagulopathy/bleeding disorders. DERMATOLOGIC: Denies rashes or pruritus. PSYCHIATRIC: Denies any suicidal or homicidal ideation. Denies hallucinations. PHYSICAL EXAM GENERAL APPEARANCE: The patient is awake, alert, and oriented, in no acute cardiopulmonary distress. NEUROLOGICAL: Motor is 5/5 in bilateral upper and lower extremities proximal to distal. No sensory deficits. HEENT: Face is symmetric. Pupils are equal and reactive. Extraocular movements are intact. NECK: Supple. No JVD. No thyromegaly. No submental, submandibular, pre- /postauricular, occipital or supraclavicular lymphadenopathy. CHEST: Normal chest expansion. No Telemetry. LUNGS: Absence of any rales, rhonchi or any wheezing. CARDIOVASCULAR: Regular. S1 and S2 normal. No appreciable rubs, murmurs or gallops. ABDOMEN: Soft, nontender, and nondistended. There is no rebound, voluntary guarding, or rigidity. : Deferred. No Hutson. EXTREMITIES: Left lower extremity with surgical dressing in place over BKA site, clean, dry, and intact. Mild postop tenderness. BKA of RLE SKIN: No skin breakdown. buttock ulcer Vital Signs (last 8hr) Date Time Temp Pulse Resp B/P (MAP) Pulse Ox O2 Delivery O2 Flow Rate FiO2 11/16/24 16:00 98.1 64 18 147/76 93 Room Air 11/16/24 14:43 65 163/71 11/16/24 12:15 98.2 93 16 111/88 Room Air 11/16/24 12:00 98.1 80 18 131/55 90 Room Air 11/16/24 12:00 98.2 96 16 128/99 Room Air 11/16/24 11:45 88 16 122/75 Room Air 11/16/24 11:30 87 16 118/70 Room Air 11/16/24 11:15 90 16 121/57 Room Air 11/16/24 11:00 92 16 132/70 Room Air 11/16/24 10:45 92 16 126/63 Room Air 11/16/24 10:30 90 16 125/62 Room Air 11/16/24 10:15 90 16 137/68 Room Air 11/16/24 10:00 95 16 127/72 Room Air 11/16/24 09:45 94 16 106/72 Room Air 11/16/24 09:30 90 16 141/70 Room Air 11/16/24 09:15 91 16 134/67 Room Air 11/16/24 09:00 97.9 89 16 114/70 Room Air LABS: Laboratory: Test 11/16/24 16:19 11/16/24 05:54 Range/Units Whole Blood Glucose 218 #H 70-110 MG/DL White Blood Count 10.8 4.8-10.8 K/uL Red Blood Count 2.92 L 4.50-6.20 MIL/uL Hemoglobin 8.7 L 14.0-18.0 g/dL Hematocrit 28.1 L 42-54 % Mean Corpuscular Volume 96.2 79-99 fL Mean Corpuscular Hemoglobin 29.8 27.0-33.0 pg Mean Corpuscular Hemoglobin Concent 31.0 L 32.0-36.0 g/dL Red Cell Distribution Width 15.6 H 11.0-15.5 % Platelet Count 262 # 130-400 K/uL Mean Platelet Volume 10.4 7.5-10.5 fL Nucleated Red Blood Cells 0.0 0.0-0.19 % Sodium Level 137 136-145 mmol/L Potassium Level 3.9 3.5-5.1 mmol/L Chloride Level 99 L 101-111 mmol/L Carbon Dioxide Level 32 21-32 mmol/L Blood Urea Nitrogen 30 H 7-18 mg/dL Creatinine 6.6 H 0.5-1.3 mg/dL Glomerular Filtration Rate Calc 9 >90 mL/min Random Glucose 157 H 70-105 mg/dL Total Calcium 7.6 L 8.5-10.1 mg/dL Current Medications Medications (Trade) Dose Ordered Sig/Idania Route PRN Reason Start Time Stop Time Status Last Admin Dose Admin Acetaminophen (TYLenol 325MG TAB) 650 mg Q6H6 PO 11/16/24 18:00 12/16/24 17:59 Acetaminophen/ Codeine Phosphate (TYLenol-coDEINE TAB) 1 tab Q4H PRN PO MODERATE PAIN (4-6) 11/14/24 13:00 11/14/24 19:39 DC Acetaminophen/ Hydrocodone Bitart (NORco 5/325MG) 1 tab Q4H PRN PO MODERATE PAIN (4-6) 11/06/24 13:30 11/07/24 01:21 DC Acetaminophen/ Hydrocodone Bitart (NORco 5/325MG) 1 tab Q6H PRN PO SEVERE PAIN (7-10) 11/14/24 10:00 11/14/24 19:39 DC 11/14/24 18:11 1 TAB Acetaminophen/ Hydrocodone Bitart (NORco 5/325MG) 2 tab Q4H PRN PO SEVERE PAIN (7-10) 11/06/24 13:30 11/07/24 01:21 DC 11/06/24 22:09 2 TAB Acetaminophen/ Hydrocodone Bitart (NORco 5/325MG) 2 tab Q8H PO 11/07/24 13:00 11/07/24 13:45 DC Acetaminophen/ Hydrocodone Bitart (NORco 5/325MG) 2 tab Q8H PRN PO PAIN LEVEL 7 TO 10 11/07/24 14:00 11/07/24 13:57 DC Acetaminophen/ Hydrocodone Bitart (NORco 5/325MG) 2 tab Q8H PRN PO MODERATE PAIN (4-6) 11/07/24 18:30 11/12/24 18:29 DC 11/12/24 08:50 2 TAB Albumin Human (Albumin (Human) 25%) 100 ml ONCE IV 11/14/24 14:00 11/15/24 13:59 DC 11/14/24 13:59 100 ML Atorvastatin Calcium (LIPItor 40MG) 40 mg HS PO 11/06/24 21:00 12/06/24 20:59 11/15/24 20:22 40 MG Bisacodyl (DulcoLAX 5MG TAB) 5 mg Q12H PO 11/16/24 10:30 11/16/24 16:53 DC 11/16/24 13:38 5 MG Dextrose (D50w) 50 ml AD PRN IV HYPOGLYCEMIA PROTOCOL 11/06/24 14:30 12/06/24 14:29 11/10/24 13:43 25 ML Enoxaparin Sodium (Lovenox) 30 mg DAILY SQ 11/07/24 09:00 12/07/24 08:59 11/16/24 08:39 30 MG Famotidine (Pepcid 20mg Tab) 20 mg QTUTHSA@2100 PO 11/06/24 21:00 11/09/24 11:34 DC 11/06/24 21:10 20 MG Fentanyl (DURAgesic 12 MCG/HR PATCH) 12 mcg Q72H TD 11/14/24 10:00 11/14/24 10:09 DC Gabapentin (NEURontin 100 mg CAP) 100 mg TID PO 11/12/24 21:00 11/16/24 12:49 DC 11/16/24 08:40 100 MG Gabapentin (NEURontin 100 mg CAP) 200 mg TID PO 11/16/24 14:00 12/16/24 13:59 11/16/24 13:38 200 MG Glucagon (Glucagon 1mg Kit) 1 mg AD PRN IM HYPOGLYCEMIA PROTOCOL 11/06/24 14:30 12/06/24 14:29 Heparin Sodium (Porcine) (HEParin 5,000 UNIT VIAL) 10,000 unit AD IRRIG 11/08/24 15:00 12/08/24 14:59 11/16/24 14:37 10,000 UNIT Hydromorphone HCl (DiLAUDid 1MG INJ) 1 mg Q4H PRN IVP SEVERE PAIN (7-10) 11/07/24 08:00 11/12/24 07:59 DC 11/12/24 02:15 1 MG Hydromorphone HCl (DiLAUDid 1MG INJ) 1 mg Q4H PRN IVP SEVERE PAIN (7-10) 11/12/24 09:00 11/13/24 12:19 DC 11/13/24 08:42 1 MG Hydromorphone HCl (DiLAUDid 2MG TAB) 2 mg Q6H PRN PO SEVERE PAIN (7-10) 11/13/24 12:30 11/14/24 10:03 DC 11/14/24 09:33 2 MG Hydromorphone HCl (DiLAUDid 2MG TAB) 2 mg Q6H PRN PO SEVERE PAIN (7-10) 11/14/24 20:00 11/21/24 19:59 11/16/24 08:40 2 MG Insulin Glargine (LANtus 100 UNITS/ML 10 ML VIAL) 10 units HS SQ 11/06/24 21:00 11/07/24 11:22 DC 11/06/24 21:15 10 UNITS Insulin Human Regular (humuLIN R 100 UNIT/ML 3ML) INSULIN SLIDING SCAL... ACHS SQ 11/06/24 16:30 12/06/24 16:29 11/16/24 16:46 3 UNIT Lactulose (Constulose 20gm/ 30ml Udcup) 20 gm BID PRN PO CONSTIPATION 11/13/24 12:30 11/16/24 10:15 DC 11/16/24 01:31 20 GM Leptospermum Honey (CricHQmiller) 1 APPL DAILY16 TP 11/07/24 16:00 12/07/24 15:59 11/16/24 16:43 1 APPL Levofloxacin/ Dextrose (LEvaquIN 500 MG/ D5W 100 ML) 500 mg Q48H IV 11/06/24 16:00 11/13/24 12:35 DC 11/12/24 17:11 500 MG Lidocaine (Lidoderm Patch 5%) 1 patch DAILY TP 11/09/24 20:00 12/09/24 19:59 11/16/24 08:40 1 PATCH Mineral Oil (Mineral Oil) 15 ml TID PO 11/16/24 18:00 12/16/24 17:59 UNV Morphine Sulfate (morPHINE 2MG SYG) 2 mg Q4H PRN IVP SEVERE PAIN (7-10) 11/07/24 01:30 11/07/24 08:00 DC 11/07/24 02:34 2 MG Nifedipine (adALAT 30MG) 60 mg Q24H PO 11/06/24 14:30 12/06/24 14:29 11/16/24 14:45 60 MG Ondansetron HCl (zoFRAN 4MG INJ) 4 mg Q6H PRN IVP NAUSEA/VOMITING 11/07/24 19:30 12/07/24 19:29 11/09/24 11:33 4 MG Pantoprazole Sodium (PROTonix 40MG INJ) 40 mg DAILY IVP 11/10/24 09:00 12/10/24 08:59 11/16/24 08:39 40 MG Pantoprazole Sodium (PROTonix 40MG INJ) 40 mg DAILY IVP 11/10/24 09:00 12/10/24 08:59 UNV Pharmacy Profile Note (Lace Assessment) 1 each AD MISC 11/07/24 11:30 11/07/24 11:35 DC Sevelamer HCl (RENAgel 800 MG TAB) 400 mg TIDMEALS PO 11/09/24 12:00 12/09/24 11:59 11/16/24 16:44 400 MG Sodium Chloride 1,000 ml @ 0 mls/hr ONCE IV 11/08/24 15:00 12/08/24 14:59 11/16/24 14:35 1,000 MLS/HR Tramadol HCl (UltRAM) 50 mg Q6H PRN PO MODERATE PAIN (4-6) 11/07/24 01:30 11/07/24 18:09 DC Vancomycin HCl 250 ml @ 166.667 mls/hr QTUSA IV 11/07/24 09:00 11/06/24 13:22 DC Vancomycin HCl 250 ml @ 166.667 mls/hr QTUTHSA[DIALYSIS] IV 11/07/24 16:00 11/11/24 06:25 DC 11/09/24 15:44 166.667 MLS/HR Vancomycin HCl (Vancomycin 750mg) 750 mg QTUTHSA[DIALYSIS] IVPB 11/11/24 16:00 11/13/24 12:35 DC 11/11/24 16:08 750 MG Vancomycin HCl (Vancomycin Protocol) 1 each AD IV 11/06/24 13:30 11/13/24 12:35 DC Wound Care/ Dressing Products (Venelex Ointment) BID TP 11/16/24 21:00 12/16/24 20:59 DIAGNOSTICS / RADIOLOGY: [ ] ASSESSMENT: Sepsis POA Left foot gangrene Postoperative day left below-knee amputation ESRD on dialysis T, Th, S POA Acute blood loss anemia Uncontrolled DM II Chronic anemia with anemia of renal disease POA History of chronic corticosteroid use as outpatient with the prednisolone POA Psoriatic POA Uncontrolled hypertension POA PAD POA Recent history of hospitalization [facility] for infected right BKA stump with osteomyelitis on IV antibiotics outpatient Recent Cultures wound positive for MRSA and MDRO E coli Recent history of right BKA site debridement 07/21/2024 followed by delayed primary closure on 07/24/[address] Montes PLAN: Sepsis POA, resolving * patient improving with the antibiotics he has been receiving, WBC at 11.4 today * Discontinue vancomycin and levofloxacin * Patient afebrile with current temperature at 97.5 * We will follow recommendations from Infectious Disease. Post operative day 6 left below-knee amputation (BKA) * Patient stable with no postop complications overnight * Got recommendation from the surgical team "per surgical team, okay to care for surgical incision by cleansing with NS, covering site with Vaseline gauze, applying 4 x4, wrapping with Kerlix, and wrapping site with an Giuseppe bandage daily". * Encourage left knee flexion and extension exercises to preserve joint mobility * Continue patient on pain medication * Physical therapy consulted who recommended rehab ESRD on dialysis T, Th, S POA * Patient underwent dialysis yesterday. Patient received 1 bag of blood transfusion during dialysis, his hemoglobin has improved today * His labs have also improved post dialysis Acute Blood Loss Anemia * Patient is hemoglobin level is at 8.7 * Patient also received Venofer which helped increase hemoglobin level from 7 to 7.2 Before getting blood transfusion ATTESTATION BY PHYSICIAN I have seen and examined the patient. I reviewed the documentation, medical de cision making, and treatment plan as noted by the resident provider above. I agree with the findings and plan of care. Elan Riley MD, ABHINAV MD Nov 16, 2024 16:59
[2024-11-16] MEDS: MINERAL OIL 30 ML UDCUP PO SCH (17:17)
--- NOTE | 2024-11-16 17:59 | PN ---
INFECTIOUS DISEASE PROGRESS NOTE Date of Service: Nov 16, 2024 SUBJECTIVE: Patient was seen and examined at bedside in room 318. Patient is status post left [id number]-[id number] amputation on 11/10/2024. Per report patient has been referred to [facility] for re[facility]. Dialysis session in process. No fever, temperature is 98.1. No other issues reported by nursing. PHYSICAL EXAM EYES: Anicteric. Pupils equal and reactive. HENT: No oral thrush seen, moist Oral mucosa. NECK: Supple, no JVD or thyromegaly. LUNGS: Good air entry. No rales, no rhonchi. CARDIOVASCULAR: S1, S2 regular. No murmur heard. ABDOMEN: Soft, non tender, bowel sounds present, no organomegaly. CENTRAL NERVOUS SYSTEM: Awake, alert, oriented x 3. SKIN: No rashes, no swelling. LYMPHATICS: No peripheral lymphadenopathy MUSCULOSKELETAL: No joint swelling, erythema or tenderness. Left foot diabetic ulcer with gangrene, s/p left jwnyw-qlp-[id number] amputation on 11/10/2024. History of Right wdrwa-pvw-vneg amputation. EXTREMITIES: No cyanosis or clubbing. BACK: No deformity, no pressure ulcer. GENITOURINARY: No dysuria or hematuria. Vital Sign (Last 12 Hours) 11/16/24 11/16/24 11/16/24 11/16/24 08:00 08:40 09:00 09:15 Temp 97.9 97.9 97.9 Pulse 55 93 89 91 Resp 18 16 16 16 B/P (MAP) 132/55 156/70 114/70 134/67 Pulse Ox 92 O2 Delivery Room Air Room Air Room Air Room Air 11/16/24 11/16/24 11/16/24 11/16/24 09:30 09:45 10:00 10:15 Pulse 90 94 95 90 Resp 16 16 16 16 B/P (MAP) 141/70 106/72 127/72 137/68 O2 Delivery Room Air Room Air Room Air Room Air 11/16/24 11/16/24 11/16/24 11/16/24 10:30 10:45 11:00 11:15 Pulse 90 92 92 90 Resp 16 16 16 16 B/P (MAP) 125/62 126/63 132/70 121/57 O2 Delivery Room Air Room Air Room Air Room Air 7/31/11/16/24 11/16/24 11/16/24 11:30 11:45 12:00 12:00 Temp 98.2 98.1 Pulse 87 88 96 80 Resp 16 16 16 18 B/P (MAP) 118/70 122/75 128/99 131/55 Pulse Ox 90 O2 Delivery Room Air Room Air Room Air Room Air 11/16/24 11/16/24 11/16/24 12:15 14:43 16:00 Temp 98.2 98.1 Pulse 93 65 64 Resp 16 18 B/P (MAP) 111/88 163/71 147/76 Pulse Ox 93 O2 Delivery Room Air Room Air Intake & Output (last 24hrs) 11/15/24 11/15/24 11/16/24 15:00 23:00 07:00 Intake Total 1420.0 ml 120 ml Output Total 0 ml Balance 1420.0 ml 120 ml LABS: Laboratory: Test 11/16/24 16:19 11/16/24 05:54 Range/Units Whole Blood Glucose 218 #H 70-110 MG/DL White Blood Count 10.8 4.8-10.8 K/uL Red Blood Count 2.92 L 4.50-6.20 MIL/uL Hemoglobin 8.7 L 14.0-18.0 g/dL Hematocrit 28.1 L 42-54 % Mean Corpuscular Volume 96.2 79-99 fL Mean Corpuscular Hemoglobin 29.8 27.0-33.0 pg Mean Corpuscular Hemoglobin Concent 31.0 L 32.0-36.0 g/dL Red Cell Distribution Width 15.6 H 11.0-15.5 % Platelet Count 262 # 130-400 K/uL Mean Platelet Volume 10.4 7.5-10.5 fL Nucleated Red Blood Cells 0.0 0.0-0.19 % Sodium Level 137 136-145 mmol/L Potassium Level 3.9 3.5-5.1 mmol/L Chloride Level 99 L 101-111 mmol/L Carbon Dioxide Level 32 21-32 mmol/L Blood Urea Nitrogen 30 H 7-18 mg/dL Creatinine 6.6 H 0.5-1.3 mg/dL Glomerular Filtration Rate Calc 9 >90 mL/min Random Glucose 157 H 70-105 mg/dL Total Calcium 7.6 L 8.5-10.1 mg/dL ASSESSMENT: 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 Sepsis, resolved. Leukocytosis, resolved. End-stage renal disease, on dialysis. Diabetes mellitus. Anemia with a history of blood transfusion. Psoriasis. PLAN: Continue pain management. Continue wound care. Continue physical therapy. Continue dialysis as recommended by fishing rod assembler. No antibiotics needed on discharge. Case management working on SNF placement. This case was reviewed and discussed with my supervising physician and the above assessment and plan was formulated and agreed upon. ATTESTATION BY PHYSICIAN I have seen and examined the patient. I reviewed the documentation, medical decision making, and treatment plan as noted by the mid-level provider above. I agree with the findings and plan of care. ENEDELIA GUAMAN MD, [facility] Nov 16, 2024 17:59
--- NOTE | 2024-11-16 19:55 | NUR ---
REFUSED [employer]ER[employer]IL EXPLAINED TO THE PATIENT THAT THIS MEDICATION WAS TO HELP HIM HAVE A BM, HE SAYS THIS MED MAKES HIM NAUSEATED AND HE DID NOT WANT TO TAKE IT. HE STATED TO ME THAT HE FEELS HE WILL HAVE A BM SOON. BOWEL SOUNDS ARE ACTIVE IN ALL QUADRANTS AT THIS TIME.
[2024-11-16] MEDS: BALSAM PERU/CASTOR OIL 60 GM TUBE TP SCH (19:56)
[2024-11-17] VITALS (8 sets, daily range): BP systolic 95–115; BP diastolic 46–69; PULSE 87–99; RESP 18; TEMP 97.9–98.1; O2SAT 95–100
[2024-11-17 06:00] LABS: NUCLEATED RED BLOOD CELLS 0.0 % (0.0-0.19); PLATELET COUNT (AUTO) 263.0 K/uL (130-400); RED BLOOD CELL COUNT(AUTO) 2.84 MIL/uL (4.50-6.20); RED CELL DISTRIBUTION WIDTH 15.1 % (11.0-15.5); WHITE BLOOD COUNT (AUTO) 11.8 K/uL (4.8-10.8)
--- NOTE | 2024-11-17 06:03 | NUR ---
0400 VITALS PATIENT BLOOD PRESSURE WAS 84/54, HE WAS PUT INTO TRENDELENBERG POSITION FOR 5 MINUTES WHEN RECHECK BP WAS NOW 105/46. PATIENT IS AWAKE AND ORIENTED HE COMPLAINS OF PAIN TO LEFT EXTREMITY BUT UNABLE TO RECEIVE PAIN MEDICATION OTHER THAN TYLENOL AT THIS TIME DUE TO THE BLOOD PRESSURE. I PAGED AMADA RYAN, NEW ORDERS GIVEN FOR A 250ML BOLUS OF NS X1. PATIENT IS AWARE AND AGREEABLE. LEFT BEDSIDE, BED ALARM IS ON BED IS LOW AND THE DOOR IS SLIGHTLY OPEN WITH LIGHTS DIM. GIVEN PATIENT CALL [facility].
[2024-11-17] MEDS: 0.9% NACL 250ML 250 ML IV ONE (06:08)
[2024-11-17 06:15] LABS: CREATININE 5.0 mg/dL (0.5-1.3); GLOMERULAR FILTR. RATE CALC 12.0 mL/min (>90); GLUCOSE,RANDOM 148.0 mg/dL (70-105); SODIUM SERUM 136.0 mmol/L (136-145); UREA NITROGEN, BLOOD 23.0 mg/dL (7-18)
--- NOTE | 2024-11-17 13:55 | DS ---
Discharge Summary Assessment/Plan: ASSESSMENT: Sepsis POA Left foot gangrene Postoperative day left below-knee amputation ESRD on dialysis T, , S POA Acute blood loss anemia Uncontrolled DM II Chronic anemia with anemia of renal disease POA History of chronic corticosteroid use as outpatient with the prednisolone POA Psoriatic POA Uncontrolled hypertension POA PAD POA Recent history of hospitalization [facility] for infected right BKA stump with osteomyelitis on IV antibiotics outpatient Recent Cultures wound positive for MRSA and MDRO E coli Recent history of right BKA site debridement 07/21/2024 followed by delayed primary closure on 07/24/[address] Montes PLAN: Sepsis POA, resolving * patient improving with the antibiotics he has been receiving, WBC at 11.4 today * Discontinue vancomycin and levofloxacin * Patient afebrile with current temperature at 97.5 * We will follow recommendations from Infectious Disease. Post operative day 6 left below-knee amputation (BKA) * Patient stable with no postop complications overnight * Got recommendation from the surgical team "per surgical team, okay to care for surgical incision by cleansing with NS, covering site with Vaseline gauze, applying 4 x4, wrapping with Kerlix, and wrapping site with an Giuseppe bandage daily". * Encourage left knee flexion and extension exercises to preserve joint mobility * Continue patient on pain medication * Physical therapy consulted who recommended rehab ESRD on dialysis T, , S POA * Patient underwent dialysis yesterday. Patient received 1 bag of blood transfusion during dialysis, his hemoglobin has improved today * His labs have also improved post dialysis Acute Blood Loss Anemia * Patient is hemoglobin level is at 8.7 * Patient also received Venofer which helped increase hemoglobin level from 7 to 7.2 Before getting blood transfusion Home Medications: Active Scripts Famotidine (Famotidine) 20 Mg Tablet, 20 MG PO Q48H, #60 TAB Prov:PADDY MCLAIN DIRECTOR INTERNAL COMMUNICATIONS 08/16/24 Nifedipine (Nifedipine ER) 30 Mg Tab.er.24, 60 MG PO Q24H, #60 TAB Prov:LIBRA MCLAINA B DIRECTOR INTERNAL COMMUNICATIONS 06/06/24 Atorvastatin Calcium (LIPITOR) 40 Mg Tablet, 40 MG PO HS, #60 TAB Prov:PADDY MCLAIN DIRECTOR INTERNAL COMMUNICATIONS 06/06/24 Reported Medications Prednisone (Deltasone / Orasone) 5 Mg Tablet, 1 TAB PO BID 10/09/24 Hydrocodone/Acetaminophen (Hydrocodon-Acetaminophn 10-325) 10 Mg-325 Mg Tablet, 1 TAB PO QIDP PRN for pain for 5 Days, #20 TAB 0 Refills 08/11/24 Time spent arranging discharge: 31-60 minutes ALEX FISHER MD Nov 17, 2024 13:55
--- NOTE | 2024-11-17 14:18 | NUR ---
SS ENEMA GIVEN WITH LARGE BM AFTERWARDS
[2024-11-17] MEDS: ALBUMIN (HUMAN) 5% 250 ML IV SCH (16:49)
--- NOTE | 2024-11-17 17:46 | NUR ---
PT STILL C/O NOT PASSING ENOUGH STOOL/ FLEET ENEMA ADMINISTERED AND TOLERATED <15ML. NOTIFIED DR. FISHER; ORDER GIVEN FOR DULCOLAX SUPP
--- NOTE | 2024-11-17 19:17 | PN ---
[facility] PROGRESS NOTE Date of Service: Nov 17, 2024 Time of Service: 19:01 SUBJECTIVE: 11/07/24: Patient evaluated at bedside with family present. Patient was in pain in his left leg. Patient was given 1 mg of Dilaudid 30 minutes before but he was still in pain. Given the patient's persistent high pain score, with ESRD and stable clinical status (alert, oriented, respiratory rate and O2 saturation within normal limits) an increased dose of 1.5 mg IV hydromorphone was ordered for more effective pain control. We will monitor for efficacy and signs of over- sedation. Patient stable with temperature at 98.1 pulse 103, respiratory rate 21, blood pressure 133/88 and the pulse ox of 95 on room air. His labs today showed his WBC dropping to 17.5 from 21.9 yesterday, his hemoglobin also dropped to 8.5 from 9.0. Patient's creatinine was at 7.2 and BUN at 91 he is due for dialysis today. The community development worker Dr. Jackson saw him today in the morning and assess that he has wet gangrene to the left forefoot and a necrotic left heel ulcer, he also has nonoperable peripheral vascular disease and has ischemic rest pain. He also mentioned that the patient is a candidate for a gzowi-[id number] amputation. He may Brittni reviewed by Dr. Jordan, who is the surgeon. From surgical standpoint they ordered CTA of the abdomen aorta with runoff to access for any vascular abnormalities and if any cardiovascular interventions needed before surgical intervention. Patient is likely to be scheduled for left BKA by Dr. Jordan. Patient was made aware of the plan and he agrees. 11/08/24: Patient evaluated bedside without his family present. Patient was still in pain in his left leg after being given 1.5 mg Dilaudid. Patient refused dialysis yesterday because of his pain so today his creatinine increased to 8.1 from 7.2 yesterday his BUN increased to 96 from 91 yesterday. Spoke to the patient regarding this and he agreed to have his dialysis performed today, hopefully his labs will improve after dialysis. His WBC did decrease to 15.8 from 17.5 yesterday. Patient had a popliteal nerve block for pain management perform yesterday night by the anesthesiologist he still says that the pain is only 30% resolved. Dr. Vizcaino the Infectious Disease specialist saw the patient today and recommended to continue vancomycin and levofloxacin. He is also scheduled for CTA of the abdomen aorta with runoff to access for any vascular abnormalities and if any cardiovascular interventions needed before surgical intervention. His surgery has been scheduled for tomorrow. 11/09/24: Patient evaluated at bedside with his present. Patient is stable but still in pain. He also had episodes of vomiting even on Zofran. Will consult GI after the patients BKA. The BKA has been scheduled for tomorrow. Patient underwent CTA Chest today as preop, still waiting on the report. Patient has also been started on Zofran 40 mg IV. Continuing patients antibiotics of vancomycin and levofloxacin. Patients labs have improved since he got dialysed yesterday. His Creatine has improved from 8.1 to 6.3 and his Bun has gone down to 56 from 96. 11/10/24: Patient evaluated at bedside with his present. Patient is stable but still in pain. He is scheduled to undergo left BKA surgery in the afternoon. Patient had a CTA ABDAOR - CT ANGIO ABD AORTA W RUNOFF performed yesterday which showed diffuse atherosclerotic changes with multilevel focal occlusions segment of the right superficial femoral artery and the right popliteal artery and the trifurcation vessels. Patient's creatinine went down to 5.0 from 6.3 and BUN to 37 from 56. Patient's went to bring that left foot culture came back positive for Gram-negative rods and Gram-positive cocci resistant to gentamicin and sensitive to vancomycin so continuing the patient on vancomycin and levofloxacin 11/11/24: The patient is postoperative day 1 from a left below-knee amputation (BKA). He remains hemodynamically stable with no acute events overnight. He denies nausea or vomiting, is tolerating diet well, and is passing flatus. He continues to report pain, for which he received1 mg of IV Dilaudid. He is currently receiving antibiotic therapy with Levaquin and Zosyn. Hemodialysis was performed today with a net removal of 1.6 L. Pre dialysis labs revealed sodium 131, potassium 5.2, BUN 46, creatinine 6.3, WBC 13.9, hemoglobin 8.2, platelet 172. Repeat laboratory testing is planned for tomorrow morning. The patient was advised to begin gentle flexion and extension exercise of the left knee. The surgical dressing will remain in place for 3 days. We will await further recommendation from the Surgical and Infectious Disease teams. The patient has expressed a strong preference for discharge with home health service and has declined transfer to a retirement facility for rehabilitation. 11/12/24: The patient is postoperative day 2 from a left below-knee amputation (BKA). He remains hemodynamically stable with no acute events overnight. He denies nausea or vomiting, is tolerating diet well, and is passing flatus. He continues to report pain, for which he received1 mg of IV Dilaudid and 100 mg of gabapentin. He is currently receiving antibiotic therapy with Levaquin and Zosyn. Hemodialysis was performed yesterday with a net removal of 1.6 L. This morning CBC 14.8, hemoglobin 7.4, sodium 137, potassium 4, magnesium 1.8, creatinine 4.4. The patient was advised to begin gentle flexion and extension exercise of the left knee. The surgical dressing will remain in place for 3 days. We will await further recommendation from the Surgical and Infectious Disease teams. Physical therapy consulted. The patient has expressed a strong preference for discharge with home health service and has declined transfer to a retirement facility for rehabilitation. 11/13/24: The patient is postoperative day 3 from a left below-knee amputation (BKA). He remains hemodynamically stable with no acute events overnight. He denies nausea or vomiting, is tolerating diet well, and is passing flatus but no bowel movement yet so we started the patient on lactulose. He continues to report pain, we have discontinued the IV Dilaudid and put him on p.o. hydromorphone and also fentanyl patches. He is currently receiving antibiotic therapy with Levaquin and Zosyn. We are waiting for recommendation from Dr. Vizcaino the infectious disease specialist regarding antibiotics during dis charge. His hemoglobin has dropped to 7 today so we gave him Venofer, we will see if he improves or if he requires transfusion. Hemodialysis will be performed tomorrow. This morning CBC 10.1, hemoglobin 7.0, sodium 138, potassium 4.0, creatinine 6.0. The patient was advised to begin gentle flexion and extension exercise of the left knee. The surgical dressing will remain in place for 3 days. Placed a PT evaluation to make sure he can transfer from bed to wheelchair. We are also waiting on the surgeon's recommendation for wound care. Once the above orders have been completed the patient can be discharged home with home health service. The patient has expressed a strong preference for discharge with home health service and has declined transfer to a retirement facility for rehabilitation. 11/14/24: The patient is postoperative day 4 from a left below-knee amputation (BKA). He is hemodynamically stable with no acute events overnight. The change made yesterday from IV Dilaudid to hydromorphone p.o. helped patient with his pain and led him to have a peaceful night sleep. Infectious Disease said we c ould discharge him without any antibiotics. Antibiotics have been discontinued. Surgery placed the necessary wound care recommendations. Patient had a physical therapy session today after which he decided that he would go to rehab instead of home health. Physical therapy also recommends physical therapy, so case management has been notified. Today we change the pain medication to Tylenol- codeine tablets with fentanyl patch. We will see how the patient does on the new medication and also waiting on case management for placement to retirement facility for rehabilitation. 11/15/24: The patient is postoperative day 5 from a left below-knee amputation (BKA). He is hemodynamically stable with no acute events overnight. Patient could not tolerate Tylenol codeine tablets yesterday so he was changed back to hydromorphone p.o. after which he was able to sleep peacefully. Patient is still in pain. Patient noncompliant with performing physical therapy. Got recommendation from the surgical team "per surgical team, okay to care for surgical incision by cleansing with NS, covering site with Vaseline gauze, a pplying 4 x4, wrapping with Kerlix, and wrapping site with an Giuseppe bandage daily". At this point we are waiting for acceptance to retirement facility for rehabilitation. 11/16/24: The patient is postoperative day 6 from a left below-knee amputation (BKA). He is hemodynamically stable with no acute events overnight. Patient is still in pain. Patient noncompliant with performing physical therapy. Patient had dialysis performed today. Patient's hemoglobin is improving and is currently 8.7. Patient has not had a bowel movement so started him on mineral oil. Wound care consult requested for an ulcer on his buttock. Waiting on acceptance to a retirement facility for rehabilitation. 11/17/24: The patient is postoperative day 7 from a left below-knee amputation (BKA). He is stable with no acute events overnight but his blood pressure has gone down a bit at 98/52. Patient has been placed on midodrine and albumin. Patient is still in pain. Patient noncompliant with performing physical therapy. Patient had dialysis performed yesterday. Patient's hemoglobin is currently 8.4 . Patient has not had a bowel movement so started him on mineral oil, he has been given a soapsuds enema but was only able to handle 150 mL before he started complaining and asked to stop the enema. He has also been started on Dulcolax 10 mg b.i.d. p.o. Wound care consult requested for an ulcer on his buttock. Patient's retirement facility has been rejected so he is gonna go home with home health. We will discharge the patient tomorrow if he has a proper bowel movement and his blood pressure stabilizes. REVIEW OF SYSTEMS CONSTITUTIONAL: Denies fevers, chills, or night sweats. No unintentional weight loss reported. MUSCULOSKELETAL: Gebpn-hgh-sral amputation on the right. Left lower extremity pos up from BKA. Pain at surgical site. NEUROLOGICAL: Denies headache, amaurosis fugax, motor weakness, sensory deficit, vertigo/spinning sensation, gait abnormalities, or tremors. ENT: No hearing loss, otalgia, otorrhea, rhinitis, rhinorrhea, hoarseness, or sore throat. CARDIOVASCULAR: Denies any exertional angina, dyspnea on exertion, orthopnea, paroxysmal nocturnal dyspnea, palpitations, life-threatening arrhythmias, claudication. PULMONARY: Denies any shortness of breath, cough, phlegm/sputum, hemoptysis, pleuritic chest pain. GASTROINTESTINAL: constipation Denies any type of dysphagia to either liquids or solids. Denies nausea, vomiting, pyrosis, early satiety, abdominal pain, diarrhea, or changes in stool consistency or caliber. GENITOURINARY: Denies frequency, urgency, nocturia, hematuria or incontinence ENDOCRINOLOGIC: Denies polyuria, polydipsia, polyphagia or heat/cold intolerances. HEMATOLOGIC: Denies thrombophilia/previous clots, or coagulopathy/bleeding disorders. DERMATOLOGIC: Denies rashes or pruritus. PSYCHIATRIC: Denies any suicidal or homicidal ideation. Denies hallucinations. PHYSICAL EXAM GENERAL APPEARANCE: The patient is awake, alert, and oriented, in no acute cardiopulmonary distress. NEUROLOGICAL: Motor is 5/5 in bilateral upper and lower extremities proximal to distal. No sensory deficits. HEENT: Face is symmetric. Pupils are equal and reactive. Extraocular movements are intact. NECK: Supple. No JVD. No thyromegaly. No submental, submandibular, pre- /postauricular, occipital or supraclavicular lymphadenopathy. CHEST: Normal chest expansion. No Telemetry. LUNGS: Absence of any rales, rhonchi or any wheezing. CARDIOVASCULAR: Regular. S1 and S2 normal. No appreciable rubs, murmurs or gallops. ABDOMEN: Soft, nontender, and nondistended. There is no rebound, voluntary guarding, or rigidity. : Deferred. No Hutson. EXTREMITIES: Left lower extremity with surgical dressing in place over BKA site, clean, dry, and intact. Mild postop tenderness. BKA of RLE SKIN: No skin breakdown. buttock ulcer Vital Signs (last 8hr) Date Time Temp Pulse Resp B/P (MAP) Pulse Ox O2 Delivery O2 Flow Rate FiO2 11/17/24 15:55 98.1 94 18 102/69 96 Room Air 11/17/24 11:56 98.1 92 18 95/57 97 Room Air LABS: Laboratory: Test 11/17/24 15:37 11/17/24 05:39 11/16/24 20:35 Range/Units Whole Blood Glucose 150 H 70-110 MG/DL White Blood Count 11.8 H 4.8-10.8 K/uL Red Blood Count 2.84 L 4.50-6.20 MIL/uL Hemoglobin 8.4 L 14.0-18.0 g/dL Hematocrit 27.6 L 42-54 % Mean Corpuscular Volume 97.2 79-99 fL Mean Corpuscular Hemoglobin 29.6 27.0-33.0 pg Mean Corpuscular Hemoglobin Concent 30.4 L 32.0-36.0 g/dL Red Cell Distribution Width 15.1 11.0-15.5 % Platelet Count 263 130-400 K/uL Mean Platelet Volume 10.3 7.5-10.5 fL Nucleated Red Blood Cells 0.0 0.0-0.19 % Sodium Level 136 136-145 mmol/L Potassium Level 4.0 3.5-5.1 mmol/L Chloride Level 98 L 101-111 mmol/L Carbon Dioxide Level 33 H 21-32 mmol/L Blood Urea Nitrogen 23 H 7-18 mg/dL Creatinine 5.0 H 0.5-1.3 mg/dL Glomerular Filtration Rate Calc 12 >90 mL/min Random Glucose 148 H 70-105 mg/dL Total Calcium 7.5 L 8.5-10.1 mg/dL Albumin 1.9 L 3.5-5.0 g/dL Bedside Glucose Comment Notified Nurse Current Medications Medications (Trade) Dose Ordered Sig/Idania Route PRN Reason Start Time Stop Time Status Last Admin Dose Admin Acetaminophen (TYLenol 325MG TAB) 650 mg Q6H6 PO 11/16/24 18:00 11/17/24 11:50 DC 11/17/24 05:46 650 MG Acetaminophen (acetaMINOPHEN) 1,000 mg Q8H5 IVPB 11/17/24 10:00 11/17/24 11:00 DC 11/17/24 11:42 1,000 MG Acetaminophen (acetaMINOPHEN) 1,000 mg Q8H5 IVPB 11/17/24 21:00 11/18/24 13:00 Acetaminophen/ Codeine Phosphate (TYLenol-coDEINE TAB) 1 tab Q4H PRN PO MODERATE PAIN (4-6) 11/14/24 13:00 11/14/24 19:39 DC Acetaminophen/ Hydrocodone Bitart (NORco 5/325MG) 1 tab Q4H PRN PO MODERATE PAIN (4-6) 11/06/24 13:30 11/07/24 01:21 DC Acetaminophen/ Hydrocodone Bitart (NORco 5/325MG) 1 tab Q6H PRN PO SEVERE PAIN (7-10) 11/14/24 10:00 11/14/24 19:39 DC 11/14/24 18:11 1 TAB Acetaminophen/ Hydrocodone Bitart (NORco 5/325MG) 2 tab Q4H PRN PO SEVERE PAIN (7-10) 11/06/24 13:30 11/07/24 01:21 DC 11/06/24 22:09 2 TAB Acetaminophen/ Hydrocodone Bitart (NORco 5/325MG) 2 tab Q8H PO 11/07/24 13:00 11/07/24 13:45 DC Acetaminophen/ Hydrocodone Bitart (NORco 5/325MG) 2 tab Q8H PRN PO PAIN LEVEL 7 TO 10 11/07/24 14:00 11/07/24 13:57 DC Acetaminophen/ Hydrocodone Bitart (NORco 5/325MG) 2 tab Q8H PRN PO MODERATE PAIN (4-6) 11/07/24 18:30 11/12/24 18:29 DC 11/12/24 08:50 2 TAB Albumin Human 250 ml @ 0 mls/hr AD IV 11/17/24 15:30 11/18/24 15:29 11/17/24 16:49 100 MLS/HR Albumin Human (Albumin (Human) 25%) 100 ml ONCE IV 11/14/24 14:00 11/15/24 13:59 DC 11/14/24 13:59 100 ML Atorvastatin Calcium (LIPItor 40MG) 40 mg HS PO 11/06/24 21:00 12/06/24 20:59 11/16/24 19:53 40 MG Bisacodyl (DulcoLAX 5MG TAB) 5 mg Q12H PO 11/16/24 10:30 11/16/24 16:53 DC 11/16/24 13:38 5 MG Bisacodyl (DulcoLAX 5MG TAB) 10 mg BID PO 11/17/24 10:00 12/17/24 09:59 11/17/24 11:42 10 MG Dextrose (D50w) 50 ml AD PRN IV HYPOGLYCEMIA PROTOCOL 11/06/24 14:30 12/06/24 14:29 11/10/24 13:43 25 ML Enoxaparin Sodium (Lovenox) 30 mg DAILY SQ 11/07/24 09:00 12/07/24 08:59 11/17/24 09:44 30 MG Famotidine (Pepcid 20mg Tab) 20 mg QTUTHSA@2100 PO 11/06/24 21:00 11/09/24 11:34 DC 11/06/24 21:10 20 MG Fentanyl (DURAgesic 12 MCG/HR PATCH) 12 mcg Q72H TD 11/14/24 10:00 11/14/24 10:09 DC Gabapentin (NEURontin 100 mg CAP) 100 mg TID PO 11/12/24 21:00 11/16/24 12:49 DC 11/16/24 08:40 100 MG Gabapentin (NEURontin 100 mg CAP) 200 mg TID PO 11/16/24 14:00 12/16/24 13:59 11/17/24 09:44 200 MG Glucagon (Glucagon 1mg Kit) 1 mg AD PRN IM HYPOGLYCEMIA PROTOCOL 11/06/24 14:30 12/06/24 14:29 Heparin Sodium (Porcine) (HEParin 5,000 UNIT VIAL) 10,000 unit AD IRRIG 11/08/24 15:00 12/08/24 14:59 11/16/24 14:37 10,000 UNIT Hydromorphone HCl (DiLAUDid 1MG INJ) 1 mg Q4H PRN IVP SEVERE PAIN (7-10) 11/07/24 08:00 11/12/24 07:59 DC 11/12/24 02:15 1 MG Hydromorphone HCl (DiLAUDid 1MG INJ) 1 mg Q4H PRN IVP SEVERE PAIN (7-10) 11/12/24 09:00 11/13/24 12:19 DC 11/13/24 08:42 1 MG Hydromorphone HCl (DiLAUDid 2MG TAB) 2 mg Q6H PRN PO SEVERE PAIN (7-10) 11/13/24 12:30 11/14/24 10:03 DC 11/14/24 09:33 2 MG Hydromorphone HCl (DiLAUDid 2MG TAB) 2 mg Q6H PRN PO SEVERE PAIN (7-10) 11/14/24 20:00 11/21/24 19:59 11/16/24 19:53 2 MG Insulin Glargine (LANtus 100 UNITS/ML 10 ML VIAL) 10 units HS SQ 11/06/24 21:00 11/07/24 11:22 DC 11/06/24 21:15 10 UNITS Insulin Human Regular (humuLIN R 100 UNIT/ML 3ML) INSULIN SLIDING SCAL... ACHS SQ 11/06/24 16:30 12/06/24 16:29 11/16/24 16:46 3 UNIT Lactulose (Constulose 20gm/ 30ml Udcup) 20 gm BID PRN PO CONSTIPATION 11/13/24 12:30 11/16/24 10:15 DC 11/16/24 01:31 20 GM Leptospermum Honey ([facility]) 1 APPL DAILY16 TP 11/07/24 16:00 12/07/24 15:59 11/17/24 09:42 1 APPL Levofloxacin/ Dextrose (LEvaquIN 500 MG/ D5W 100 ML) 500 mg Q48H IV 11/06/24 16:00 11/13/24 12:35 DC 11/12/24 17:11 500 MG Lidocaine (Lidoderm Patch 5%) 1 patch DAILY TP 11/09/24 20:00 12/09/24 19:59 11/17/24 09:42 1 PATCH Midodrine (PROAMatine 5 MG TABLET) 10 mg TID PO 11/17/24 14:00 12/17/24 13:59 11/17/24 11:42 10 MG Mineral Oil (Mineral Oil) 15 ml TID PO 11/16/24 18:00 11/21/24 17:59 Morphine Sulfate (morPHINE 2MG SYG) 2 mg Q4H PRN IVP SEVERE PAIN (7-10) 11/07/24 01:30 11/07/24 08:00 DC 11/07/24 02:34 2 MG Nifedipine (adALAT 30MG) 60 mg Q24H PO 11/06/24 14:30 12/06/24 14:29 Hold 11/16/24 14:45 60 MG Ondansetron HCl (zoFRAN 4MG INJ) 4 mg Q6H PRN IVP NAUSEA/VOMITING 11/07/24 19:30 12/07/24 19:29 11/09/24 11:33 4 MG Pantoprazole Sodium (PROTonix 40MG INJ) 40 mg DAILY IVP 11/10/24 09:00 12/10/24 08:59 11/17/24 09:43 40 MG Pantoprazole Sodium (PROTonix 40MG INJ) 40 mg DAILY IVP 11/10/24 09:00 12/10/24 08:59 UNV Pharmacy Profile Note (Lace Assessment) 1 each AD MISC 11/07/24 11:30 11/07/24 11:35 DC Sevelamer HCl (RENAgel 800 MG TAB) 400 mg TIDMEALS PO 11/09/24 12:00 12/09/24 11:59 11/17/24 16:49 400 MG Sodium Chloride 1,000 ml @ 0 mls/hr ONCE IV 11/08/24 15:00 12/08/24 14:59 11/16/24 14:35 1,000 MLS/HR Tramadol HCl (UltRAM) 50 mg Q6H PRN PO MODERATE PAIN (4-6) 11/07/24 01:30 11/07/24 18:09 DC Vancomycin HCl 250 ml @ 166.667 mls/hr QTUSA IV 11/07/24 09:00 11/06/24 13:22 DC Vancomycin HCl 250 ml @ 166.667 mls/hr QTUTHSA[DIALYSIS] IV 11/07/24 16:00 11/11/24 06:25 DC 11/09/24 15:44 166.667 MLS/HR Vancomycin HCl (Vancomycin 750mg) 750 mg QTUTHSA[DIALYSIS] IVPB 11/11/24 16:00 11/13/24 12:35 DC 11/11/24 16:08 750 MG Vancomycin HCl (Vancomycin Protocol) 1 each AD IV 11/06/24 13:30 11/13/24 12:35 DC Wound Care/ Dressing Products (Venelex Ointment) BID TP 11/16/24 21:00 12/16/24 20:59 11/17/24 09:42 60 GM DIAGNOSTICS / RADIOLOGY: [ ] ASSESSMENT: Sepsis POA Left foot gangrene Postoperative day left below-knee amputation ESRD on dialysis T, , S POA Acute blood loss anemia Uncontrolled DM II Chronic anemia with anemia of renal disease POA History of chronic corticosteroid use as outpatient with the prednisolone POA Psoriatic POA Uncontrolled hypertension POA PAD POA Recent history of hospitalization [facility] for infected right BKA stump with osteomyelitis on IV antibiotics outpatient Recent Cultures wound positive for MRSA and MDRO E coli Recent history of right BKA site debridement 07/21/2024 followed by delayed primary closure on 07/24/[address] Montes PLAN: Sepsis POA, resolving * patient improving with the antibiotics he has been receiving, WBC at 11.8 today * Discontinue vancomycin and levofloxacin * Patient afebrile with current temperature at 97.5 * We will follow recommendations from Infectious Disease. Post operative day 6 left below-knee amputation (BKA) * Patient stable with no postop complications overnight * Got recommendation from the surgical team "per surgical team, okay to care for surgical incision by cleansing with NS, covering site with Vaseline gauze, applying 4 x4, wrapping with Kerlix, and wrapping site with an Giuseppe bandage daily". * Encourage left knee flexion and extension exercises to preserve joint mobility * Continue patient on pain medication * Physical therapy consulted who recommended rehab ESRD on dialysis T, , S POA * Patient underwent dialysis yesterday. Patient received 1 bag of blood transfusion during dialysis, his hemoglobin has improved today * His labs have also improved post dialysis Acute Blood Loss Anemia * Patient is hemoglobin level is at 8.7 * Patient also received Venofer which helped increase hemoglobin level from 7 to 7.2 Before getting blood transfusion ATTESTATION BY PHYSICIAN I have seen and examined the patient. I reviewed the documentation, medical decision making, and treatment plan as noted by the resident provider above. I agree with the findings and plan of care. Elan Riley MD, ABHINAV MD Nov 17, 2024 19:17
--- NOTE | 2024-11-17 19:51 | PN ---
NEPHROLOGY FOLLOWUP SUBJECTIVE: The patient offers no new complaints. No major events reported. OBJECTIVE: GENERAL: The patient is not in any acute distress. VITAL SIGNS: Blood pressure 102/69, respirations 18, pulse 94, and temperature 98.1. LUNGS: Clear on auscultation and inspection. HEART: Normal cardiac sound. ABDOMEN: Soft, nondistended. EXTREMITIES: With bilateral leg amputation. LABORATORY DATA: Hemoglobin 8.4. Sodium 136, potassium 4.6, creatinine of 5.0. ASSESSMENT: * End-stage renal disease, on hemodialysis. Regular schedule is on TTS. * Diabetes mellitus type 2 with nephropathy. * Hypertension with renal manifestations. * Anemia and chronic kidney disease, on erythropoietin therapy. * Peripheral arterial disease, status post right below-knee amputation. PLAN: * To continue present plan of care. * Dialysis will be done tomorrow. * Other plans as per physicians involved in the care of this patient. TID: [id number] RECEIPT: [id number]
--- NOTE | 2024-11-17 23:31 | PN ---
INFECTIOUS DISEASE PROGRESS NOTE Date of Service: Nov 17, 2024 SUBJECTIVE: Patient was seen and examined at bedside in room 318. Patient is status post left zesws-hac-pgqs amputation on 11/10/2024. Per report [facility] is not in network with patient's insurance and case management is now arranging for home with home health for rehab. Patient remains afebrile, temperature is 98.1. Patient was dialyzed yesterday and 1.7 L were removed. PHYSICAL EXAM EYES: Anicteric. Pupils equal and reactive. HENT: No oral thrush seen, moist Oral mucosa. NECK: Supple, no JVD or thyromegaly. LUNGS: Good air entry. No rales, no rhonchi. CARDIOVASCULAR: S1, S2 regular. No murmur heard. ABDOMEN: Soft, non tender, bowel sounds present, no organomegaly. CENTRAL NERVOUS SYSTEM: Awake, alert, oriented x 3. SKIN: No rashes, no swelling. LYMPHATICS: No peripheral lymphadenopathy MUSCULOSKELETAL: No joint swelling, erythema or tenderness. Left foot diabetic ulcer with gangrene, s/p left ghrhp-cip-kdqj amputation on 11/10/2024. History of Right yxcwy-xfy-yccf amputation. EXTREMITIES: No cyanosis or clubbing. BACK: No deformity, no pressure ulcer. GENITOURINARY: No dysuria or hematuria. Vital Sign (Last 12 Hours) 11/17/24 11/17/24 11/17/24 11:56 15:55 20:10 Temp 98.1 98.1 98.1 Pulse 92 94 99 Resp 18 18 18 B/P (MAP) 95/57 102/69 115/58 Pulse Ox 97 96 95 O2 Delivery Room Air Room Air Room Air Intake & Output (last 24hrs) 11/16/24 11/16/24 11/17/24 15:00 23:00 07:00 Intake Total 260.0 ml Output Total 1700 ml Balance -1700 ml 260.0 ml LABS: Laboratory: Test 11/17/24 19:46 11/17/24 05:39 11/16/24 20:35 Range/Units Whole Blood Glucose 126 H 70-110 MG/DL White Blood Count 11.8 H 4.8-10.8 K/uL Red Blood Count 2.84 L 4.50-6.20 MIL/uL Hemoglobin 8.4 L 14.0-18.0 g/dL Hematocrit 27.6 L 42-54 % Mean Corpuscular Volume 97.2 79-99 fL Mean Corpuscular Hemoglobin 29.6 27.0-33.0 pg Mean Corpuscular Hemoglobin Concent 30.4 L 32.0-36.0 g/dL Red Cell Distribution Width 15.1 11.0-15.5 % Platelet Count 263 130-400 K/uL Mean Platelet Volume 10.3 7.5-10.5 fL Nucleated Red Blood Cells 0.0 0.0-0.19 % Sodium Level 136 136-145 mmol/L Potassium Level 4.0 3.5-5.1 mmol/L Chloride Level 98 L 101-111 mmol/L Carbon Dioxide Level 33 H 21-32 mmol/L Blood Urea Nitrogen 23 H 7-18 mg/dL Creatinine 5.0 H 0.5-1.3 mg/dL Glomerular Filtration Rate Calc 12 >90 mL/min Random Glucose 148 H 70-105 mg/dL Total Calcium 7.5 L 8.5-10.1 mg/dL Albumin 1.9 L 3.5-5.0 g/dL Bedside Glucose Comment Notified Nurse ASSESSMENT: 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 Sepsis, resolved. Leukocytosis, resolved. End-stage renal disease, on dialysis. Diabetes mellitus. Anemia with a history of blood transfusion. Psoriasis. PLAN: Continue pain management. Continue wound care. Continue physical therapy. Continue dialysis as recommended by sustainability specialist. No antibiotics needed on discharge. Per report M[facility] was not in patient's insurance network and case management working on home health services arrangements for PT. This case was reviewed and discussed with my supervising physician and the above assessment and plan was formulated and agreed upon. ATTESTATION BY PHYSICIAN I have seen and examined the patient. I reviewed the documentation, medical decision making, and treatment plan as noted by the mid-level provider above. I agree with the findings and plan of care. ENEDELIA GUAMAN MD, MIRTA L [facility] Nov 17, 2024 23:31
[2024-11-18] VITALS (19 sets, daily range): BP systolic 90–151; BP diastolic 45–88; PULSE 80–105; RESP 16–18; TEMP 97.5–99
[2024-11-18 05:46] LABS: NUCLEATED RED BLOOD CELLS 0.0 % (0.0-0.19); PLATELET COUNT (AUTO) 312.0 K/uL (130-400); RED BLOOD CELL COUNT(AUTO) 2.82 MIL/uL (4.50-6.20); RED CELL DISTRIBUTION WIDTH 15.0 % (11.0-15.5); WHITE BLOOD COUNT (AUTO) 13.2 K/uL (4.8-10.8)
[2024-11-18 05:57] LABS: CREATININE 6.5 mg/dL (0.5-1.3); GLOMERULAR FILTR. RATE CALC 9.0 mL/min (>90); GLUCOSE,RANDOM 86.0 mg/dL (70-105); SODIUM SERUM 135.0 mmol/L (136-145); UREA NITROGEN, BLOOD 31.0 mg/dL (7-18)
[2024-11-18] MEDS: HYDROcodone/APAP 5/325 1 TAB TABLET PO ONE ×2 (11:24→17:23)
[2024-11-18] MEDS ORDERED: HYDR-4068 PO (14:12)
[2024-11-18] MEDS ORDERED: LEVO750T68 PO (15:48)
--- NOTE | 2024-11-18 15:52 | DS ---
Discharge Summary Hospital Course Summary: Patient is a 59 year old male with a past medical history of ESRD on dialysis 3x per week (T, Th, S), DM II, hypercholesterolemia, hypertension, and psoriasis, and chronic prednisolone use who presented to the ED for left foot evaluation. Patient had a history of right tczep-xsf-dzpz amputation and recent surgical debridement of the stump due to infection with MRSA and multi-drug resistant E. coli. The patient is wheelchair bound and was not able to complete physical therapy or obtain a prosthetic after surgery. Since then he had a fall and injured his left foot for which he was admitted in September. At the time surgical consultation led to the decision to amputate the necrotic left 2nd toe. Cardiology evaluated his circulation status, and a peripheral arteriography was performed, revealing poor vascular runoff, which precluded interventional treatment. The patient received Betadine dressings and IV antibiotics, and was provided with a CAM walking boot and heel protectors to aid mobility. Despite these measures, patient noticed the left foot worsening with blackening and swelling. The patient was then referred from Dr. Jackson's office for further evaluation. On admission, patient met criteria for sepsis with WBC elevation of 21.9 and elevated ESR of 50. BUN of 87 with baseline in 30-40's. Cr of 7.0. Hemoglobin of 9.0. Glucose elevated at 279. Patient was started on Vancomycin and Levofloxacin due to penicillin and sulfa allergy. Patient started on insulin sliding scale and long acting insulin. Due to ESRD no fluids were initiated at this time. X-ray of left foot demonstrated severe soft tissue swelling with possible minimally displaced fracture of the proximal phalanx base. He was admitted for further evaluation and management. During his stay at the hospital, His creatinine was consistently high with ma ximum 8.1, and he underwent multiple cycles of dialysis. His renal functions gradually improved during his stay at the hospital. As per the Nephrology, Dr Ramachandran he recommended continuity of Dialysis for his ESRD, DM type 2 nephrop athy. He also had WBC trending upwards, which was managed with vancomycin and levofloxacin as per the Infectious Disease recommendation, Dr Vizcaino. His left foot culture came back positive for Gram-negative rods and Gram-positive cocci resistant to gentamicin and sensitive to vancomycin so continued on vancomycin and levofloxacin. During the hospital course the statistical reporting analyst Dr. Jackson saw him and mentioned that he was a candidate for a xgegz-nmg-qjoy amputation. Patient was scheduled for left BKA by the general surgeon Dr. Sampson. Patient was made aware of the plan and he agrees. The patient underwent left BKA without intraoperative complications. Postoperatively he remained hemodynamically stable with high acute events overnight. He was managed with IV and oral medications and physical therapy initiated early mobilization. The patient was advised to begin gentle flexion and extension exercise of the left knee. Patient had a CT angiography of the abdomen and aorta which showed diffuse atherosclerotic changes with multilevel focal occlusions segment of the right superficial femoral artery and the right popliteal artery and the trifurcation vessels. For his ongoing pain his medication was changed to Tylenol-codeine tablets with fentanyl patch. The surgical site was regularly cleaned with normal saline, covered with Vaseline gauze and wrapped securely with an JACKI bandage. Patient has not had a bowel movement so he was started on mineral oil, soapsuds enema b ut was only able to handle 150 mL before he started complaining and asked to stop the enema. Wound care consult was also requested for an ulcer on his buttock. Patient had a bowel movement. At the time of discharge, the patient was hemodynamically stable, afebrile, tolerating diet and had well controlled pain on medications. The surgical site was clean, dry and intact with appropriate dressing in place. He was educated on wound care, medication adherence, activity precautions and follow up plans. The patient was deemed appropriate for discharge to continue recovery with close outpatient follow up. Grocery Department Manager(s): Nephrology: DANIS RAMACHANDRAN MD Infectious disease: ENEDELIA VIZCAINO MD General Surgery: STEPHANIE SAMPSON DO and LINA LIMON MD Procedure(s): * Left gpebb-tlb-qjhd amputation [place] [id number] [address] IMAGING REPORT Signed PATIENT: FREDRICK LION MR#: [id number] : 1965 SEX: M AGE: 59 LOCATION: [facility] ORDER 1027 STATUS: ADM IN REPORT#: [id number] SERVICE 1026 REASON: R/O osteomyelitis ORDERING PHYSICIAN: SASHA DIMAS PROCEDURE: FT 3VW LT - FOOT COMP 3+VWS LT EXAM: CR Left foot, 3 View. CLINICAL HISTORY: R/O osteomyelitis COMPARISON: None provided. FINDINGS: Severe soft tissue swelling throughout the visualized left lower extremity. There is marked osteopenia, which limits evaluation of the osseous detail. Questant a minimally displaced age-indeterminate fracture of the base of the third proximal phalanx. If clinically warranted CT imaging may be obtained. There is no other displaced fracture, osteolysis, or evidence of periostitis to suggest osteomyelitis. If clinical concern persist recommend MRI imaging for further evaluation. Joint spaces remain anatomically aligned. Atherosclerosis of the small vessels of the foot. IMPRESSION: 1. Severe soft tissue swelling of the left foot. 2. Possible minimally displaced fracture of the third proximal phalanx base. 3. No definitive evidence of osteomyelitis. /[place] DICTATED BY: VARGHESE FISHER Jr., MD DATE: 11/06/241415 ELECTRONICALLY SIGNED BY: VARGHESE FISHER Jr., MD DATE: 11/06/241415 [place] [address] IMAGING REPORT Signed PATIENT: FREDRICK LION MR#: [id number] : 1965 SEX: M AGE: 59 LOCATION: [facility] ORDER 16 STATUS: ADM IN REPORT#: [id number] SERVICE 14 REASON: Assess atrial flow ORDERING PHYSICIAN: SILVERIO BOWEN Jr. PROCEDURE: ART U LE - US ARTERIAL UNILA LOW EXT DUPL EXAMINATION: DUPLEX ULTRASOUND EXAMINATION OF THE LEFT LOWER EXTREMITY ARTERIES. CLINICAL HISTORY: Pain. COMPARISON: Left lower extremity arterial doppler dated 10/09/2024. FINDINGS: Peak systolic velocities within the left lower arteries are as follows: Common femoral artery: 102 cm/s. Superficial femoral artery: 98 cm/s at proximal, 61 cm/s at mid, and 62 cm/s at distal segments. Popliteal artery: 53 cm/s at proximal and 58 cm/s at distal segments. Posterior tibial artery: 47 cm/s. Anterior tibial artery: No flow. Dorsalis pedis artery: 14 cm/s. The left lower limb arteries demonstrate monophasic waveforms in all arteries other than the proximal popliteal artery which demonstrates triphasic waveforms. There is intimal wall thickening and severe atherosclerosis in the left lower limb arteries. There are collaterals in the distal leg and flow to the dorsalis pedis artery is from the collaterals. IMPRESSION: Mild intimal wall thickening and severe atherosclerosis in the left lower limb arteries. The left lower limb arteries demonstrate monophasic waveforms in all arteries other than the proximal popliteal artery which demonstrates triphasic waveforms. Collaterals in the distal leg and flow to the dorsalis pedis artery is from the collaterals. No flow in the left anterior tibial artery. Recommend CT/MR angiogram. /[place] DICTATED BY: VARGHESE FISHER Jr., MD DATE: 11/07/24141 ELECTRONICALLY SIGNED BY: VARGHESE FISHER Jr., MD DATE: 11/07/24141 [place] [address] IMAGING REPORT Signed PATIENT: FREDRICK LION MR#: [id number] : 1965 SEX: M AGE: 59 LOCATION: [facility] ORDER 16 STATUS: ADM IN HOSPITAL REPORT#: [id number] SERVICE 14 REASON: Assess venous flow ORDERING PHYSICIAN: SILVERIO BOWEN Jr. PROCEDURE: VENOUS UNI - US VENOUS DOPPLER UNILATERAL EXAMINATION: SPECTRAL DOPPLER ULTRASOUND EXAMINATION OF THE LEFT LOWER EXTREMITY VEINS. CLINICAL HISTORY: To assess venous flow. COMPARISON: None provided. TECHNIQUE: Real-time ultrasound scan of the veins of the left lower extremity with color Doppler flow, spectral waveform analysis and compression. FINDINGS: DEEP VEINS: The common femoral, superficial femoral (proximal and distal), and popliteal veins are echolucent and compressible. There is normal color Doppler flow throughout. The visualized calf veins appear patent. There are echogenic strands in the mid superficial femoral vein, however flow is present and the vein is partially compressible. SUPERFICIAL VEINS: The greater saphenous veins are patent and compressible. SOFT TISSUES: No popliteal fossa cyst or other abnormalities. IMPRESSION: Linear echogenic strands in the left mid superficial femoral vein, reflecting chronic thrombosis with recanalization. No deep venous thrombosis evident in the remainder of the left lower extremity. No superficial thrombophlebitis in the left lower extremity. /[place] DICTATED BY: VARGHESE FISHER Jr., MD DATE: 11/07/24141 ELECTRONICALLY SIGNED BY: VARGHESE FISHER Jr., MD DATE: 11/07/24141 [place] [id number] [address] IMAGING REPORT Signed PATIENT: FREDRICK LION MR#: [id number] : 1965 SEX: M AGE: 59 LOCATION: [facility] ORDER 1033 STATUS: ADM IN REPORT#: [id number] SERVICE 1030 REASON: PREOP ORDERING PHYSICIAN: ELAN RILEY MD PROCEDURE: CTA ABDAOR - CT ANGIO ABD AORTA W RUNOFF ADDENDUM REPORT Please make correction the right and left lower extremity are reversed. DICTATED BY: MARIETTA BECK MD DATE: 11/14/24 1256 ELECTRONICALLY SIGNED BY: MARIETTA BECK MD DATE: 11/14/24 1258 Exam: CT angiogram runoff from a Dysplastic the joint emptying. Next. We'll have involutional flow within them with her. Indication: Preop. Technique: Continuous axial images were obtained from just above the aortic bifurcation to the level of the feet after the administration of intravenous contrast material, mL of Isovue-370. Coronal and sagittal reformatted images were obtained. TOTAL DLP: 2836.70 mGy-cm; automated exposure control was utilized. Comparison: Findings: CT abdomen and pelvis angiographic findings: The abdominal aorta is normal in caliber and opacification. There is diffuse atherosclerotic change of the abdominal aorta with calcified plaque. No aortic dissection or abdominal aortic aneurysm is demonstrated. The origin of the celiac artery is widely patent. The origin of the superior mesenteric artery is widely patent. The origin of the right main renal artery is widely patent. The origin of the left main renal artery is widely patent. The origin of the inferior mesenteric artery is patent. Right lower extremity angiographic findings: There is moderate to severe atherosclerotic changes with calcified plaque involving the common common femoral artery. The profunda femoris artery on the right is patent. The right superficial femoral artery has multiple focal areas of occlusion. The right popliteal artery has focal segment of occlusion with reconstitution of collateral. The right anterior tibial artery is occluded at the mid thigh region the right peroneal artery is occluded. The right posterior tibial artery midportion is a segment of occlusion with reconstitution of collaterals with the right posterior tibial artery seen to traverse the ankle. Left lower extremity angiographic findings: There is hmbf-kk-osyodajz atherosclerotic changes of the left common femoral artery. The left superficial femoral artery and profunda femoris artery appears to be treated with mild diffuse atherosclerotic changes. The left popliteal artery is patent opacification present at is origin is patent with below-knee amputation.. CT abdomen and pelvis findings: Visualized lower thorax: The visualized lung bases demonstrate dependent bibasilar atelectasis. Peritoneum: No pneumoperitoneum or ascites is identified. Liver: The liver is normal in size and attenuation. No discrete hepatic mass or intrahepatic biliary ductal dilatation is demonstrated. The hepatic veins and portal vein appear normal. Gallbladder: Gallbladder is surgically absent. Pancreas: Within normal limits. Spleen: Within normal limits. Adrenal Glands: Within normal limits. Kidneys: The kidneys are normal in size and attenuation. No hydronephrosis, calculus, or discrete solid renal mass is identified. Small and large intestine: The small and large intestine is normal in caliber and wall thickness. Uterus: Present Prostate gland: The prostate gland is normal in size. Urinary bladder: The urinary bladder is minimally distended with fluid. Retroperitoneum: No retroperitoneal lymphadenopathy is identified. Bones: Left below-knee amputation with post surgical changes. Impression: Diffuse atherosclerotic changes with multilevel focal occlusions segment of the right superficial femoral artery and right popliteal artery and the trifurcation vessels as described above. Left side there is a left below-knee amputation with mild diffuse atherosclerotic changes of the left common femoral artery. The popliteal artery. DICTATED BY: MARIETTA BECK MD DATE: 11/09/24 6399 ELECTRONICALLY SIGNED BY: MARIETTA BECK MD DATE: 11/09/24 1607 Assessment/Plan: ASSESSMENT: Sepsis POA Left foot gangrene Left below-knee amputation ESRD on dialysis T, Th, S POA Acute blood loss anemia Uncontrolled DM II Chronic anemia with anemia of renal disease POA History of chronic corticosteroid use as outpatient with the prednisolone POA Psoriatic POA Uncontrolled hypertension POA PAD POA Recent history of hospitalization [facility] for infected right BKA stump with osteomyelitis on IV antibiotics outpatient Recent Cultures wound positive for MRSA, E coli Recent history of right BKA site debridement 07/21/2024 followed by delayed primary closure on 07/24/[address] Montes Discharge Instructions: Continue Prescribed pain medications as directed Keep the surgical incision clean and dry: Flow wound care instructions Attend all scheduled follow-up appointments Call 911 or come to ED for any signs of infection, pain around the surgical site, shortness of breath and confusion Follow up with PCP in 1-2 days Follow-up with Dr. Sampson in 1-2 weeks Follow up with Dr. Ramachandran in 1-2 weeks Follow up with Dr. Vizcaino in 1-2 weeks Home Medications: Active Scripts Levofloxacin (Levaquin 750Mg Tabs) 750 Mg Tablet, 750 MG PO QODAY for 10 Days, #5 TAB Prov:LES GARCIA MD 11/18/24 Hydrocodone/Acetaminophen (Hydrocodon-Acetaminophn 10-325) 10 Mg-325 Mg Tablet, 1 TAB PO QIDP PRN for pain for 5 Days, #20 TAB 0 Refills Prov:ELAN RILEY MD 11/18/24 Famotidine (Famotidine) 20 Mg Tablet, 20 MG PO Q48H, #60 TAB Prov:PADDY MCLAIN KENNEL ASSISTANT 08/16/24 Nifedipine (Nifedipine ER) 30 Mg Tab.er.24, 60 MG PO Q24H, #60 TAB Prov:PADDY MCLAIN KENNEL ASSISTANT 06/06/24 Atorvastatin Calcium (LIPITOR) 40 Mg Tablet, 40 MG PO HS, #60 TAB Prov:PADDY MCLAIN KENNEL ASSISTANT 06/06/24 Discontinued Reported Medications Prednisone (Deltasone / Orasone) 5 Mg Tablet, 1 TAB PO BID 10/09/24 Time spent arranging discharge: 31-60 minutes ATTESTATION BY PHYSICIAN I have seen and examined the patient. I reviewed the documentation, medical decision making, and treatment plan as noted by the resident provider above. I agree with the findings and plan of care. Elan Riley MD [facility] Nov 18, 2024 15:52
--- NOTE | 2024-11-18 18:44 | NUR ---
REPORT GIVEN TO [facility] ALL QUESTIONS ANSWERED.
--- NOTE | 2024-11-18 23:38 | PN ---
INFECTIOUS DISEASE PROGRESS NOTE Date of Service: Nov 18, 2024 SUBJECTIVE: Patient was seen and examined at bedside in room 318. Patient is status post left qljpa-vne-yiuw amputation on 11/10/2024. Patient likes to keep the left stump contracted. Reminded patient to extended as much as possible to prevent permanent contracture to the stump. Patient will be discharged to home with home health today. PHYSICAL EXAM EYES: Anicteric. Pupils equal and reactive. HENT: No oral thrush seen, moist Oral mucosa. NECK: Supple, no JVD or thyromegaly. LUNGS: Good air entry. No rales, no rhonchi. CARDIOVASCULAR: S1, S2 regular. No murmur heard. ABDOMEN: Soft, non tender, bowel sounds present, no organomegaly. CENTRAL NERVOUS SYSTEM: Awake, alert, oriented x 3. SKIN: No rashes, no swelling. LYMPHATICS: No peripheral lymphadenopathy MUSCULOSKELETAL: No joint swelling, erythema or tenderness. Left foot diabetic ulcer with gangrene, s/p left vsous-cul-rbyv amputation on 11/10/2024. History of Right oxmdd-rgv-fgrl amputation. EXTREMITIES: No cyanosis or clubbing. BACK: No deformity, no pressure ulcer. GENITOURINARY: No dysuria or hematuria. Vital Sign (Last 12 Hours) 11/18/24 11/18/24 11/18/24 11/18/24 12:20 12:50 13:00 13:15 Temp 98.2 98.2 Pulse 88 80 81 82 Resp 16 16 16 16 B/P (MAP) 117/56 121/64 122/62 128/63 O2 Delivery Room Air Room Air Room Air Room Air 11/18/24 11/18/24 11/18/24 11/18/24 13:30 13:45 14:00 14:15 Pulse 83 84 85 87 Resp 16 16 16 16 B/P (MAP) 135/64 104/70 117/88 122/62 O2 Delivery Room Air Room Air Room Air Room Air 11/18/24 11/18/24 11/18/24 11/18/24 14:30 14:45 15:00 15:15 Pulse 86 90 91 95 Resp 16 16 16 16 B/P (MAP) 129/59 117/64 136/72 133/76 O2 Delivery Room Air Room Air Room Air Room Air 11/18/24 11/18/24 11/18/24/2/25 15:30 15:45 16:00 16:00 Temp 97.5 97.5 97.5 Pulse 98 94 99 98 Resp 16 16 18 16 B/P (MAP) 131/75 128/72 131/75 126/76 Pulse Ox 97 O2 Delivery Room Air Room Air Room Air Room Air Intake & Output (last 24hrs) 11/17/24 11/17/24 11/18/24 15:00 23:00 07:00 Intake Total 600 ml Output Total 300 ml Balance 300 ml LABS: Laboratory: Test 11/18/24 15:39 11/18/24 05:27 11/17/24 05:39 Range/Units Whole Blood Glucose 98 70-110 MG/DL White Blood Count 13.2 H 4.8-10.8 K/uL Red Blood Count 2.82 L 4.50-6.20 MIL/uL Hemoglobin 8.2 L 14.0-18.0 g/dL Hematocrit 27.2 L 42-54 % Mean Corpuscular Volume 96.5 79-99 fL Mean Corpuscular Hemoglobin 29.1 27.0-33.0 pg Mean Corpuscular Hemoglobin Concent 30.1 L 32.0-36.0 g/dL Red Cell Distribution Width 15.0 11.0-15.5 % Platelet Count 312 130-400 K/uL Mean Platelet Volume 10.3 7.5-10.5 fL Nucleated Red Blood Cells 0.0 0.0-0.19 % Sodium Level 135 L 136-145 mmol/L Potassium Level 4.5 3.5-5.1 mmol/L Chloride Level 99 L 101-111 mmol/L Carbon Dioxide Level 31 21-32 mmol/L Blood Urea Nitrogen 31 H 7-18 mg/dL Creatinine 6.5 H 0.5-1.3 mg/dL Glomerular Filtration Rate Calc 9 >90 mL/min Random Glucose 86 70-105 mg/dL Total Calcium 7.6 L 8.5-10.1 mg/dL Albumin 1.9 L 3.5-5.0 g/dL ASSESSMENT: 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 Sepsis, resolved. Leukocytosis, resolved. End-stage renal disease, on dialysis. Diabetes mellitus. Anemia with a history of blood transfusion. Psoriasis. PLAN: Continue pain management. Continue wound care. Continue physical therapy. Continue dialysis as recommended by source inspector. No antibiotics needed on discharge. Patient is being discharged to home with home health services for PT. This case was reviewed and discussed with my supervising physician and the above assessment and plan was formulated and agreed upon. ATTESTATION BY PHYSICIAN I have seen and examined the patient. I reviewed the documentation, medical decision making, and treatment plan as noted by the mid-level provider above. I agree with the findings and plan of care. ENEDELIA GUAMAN MD, MIRTA L [facility] Nov 18, 2024 23:38
== END 2024-11-18 23:23 | disposition home health service (06) | DRG 853 ==
LOC: EDH 10:11 → EDHIP 12:00 → 3CH 17:25
PROVIDERS: ADMIT Internal Medicine; ATTEND Internal Medicine
PROC: 5A1D70Z Performance of Urinary Filtration, Intermittent, Less than 6 Hours Per Day (ICD-10-PCS; 2024-11-08)
PROC: 5A1D70Z Performance of Urinary Filtration, Intermittent, Less than 6 Hours Per Day (ICD-10-PCS; 2024-11-09)
PROC: 3E0T3BZ Introduction of Anesthetic Agent into Peripheral Nerves and Plexi, Percutaneous Approach (ICD-10-PCS; 2024-11-10)
PROC: 30233N1 Transfusion of Nonautologous Red Blood Cells into Peripheral Vein, Percutaneous Approach (ICD-10-PCS; 2024-11-10)
PROC: 0Y6J0Z1 Detachment at Left Lower Leg, High, Open Approach (ICD-10-PCS; principal; 2024-11-10 16:04)
PROC: 5A1D70Z Performance of Urinary Filtration, Intermittent, Less than 6 Hours Per Day (ICD-10-PCS; 2024-11-11)
PROC: 5A1D70Z Performance of Urinary Filtration, Intermittent, Less than 6 Hours Per Day (ICD-10-PCS; 2024-11-14)
PROC: 5A1D70Z Performance of Urinary Filtration, Intermittent, Less than 6 Hours Per Day (ICD-10-PCS; 2024-11-16)
PROC: 5A1D70Z Performance of Urinary Filtration, Intermittent, Less than 6 Hours Per Day (ICD-10-PCS; 2024-11-18)
DX: A41.9 Sepsis, unspecified organism (principal); E43 Unspecified severe protein-calorie malnutrition; N18.6 End stage renal disease; E11.52 Type 2 diabetes mellitus with diabetic peripheral angiopathy with gangrene; I12.0 Hypertensive chronic kidney disease with stage 5 chronic kidney disease or end stage renal disease; D62 Acute posthemorrhagic anemia; L97.428 Non-pressure chronic ulcer of left heel and midfoot with other specified severity; L97.528 Non-pressure chronic ulcer of other part of left foot with other specified severity; L98.418 Non-pressure chronic ulcer of buttock with other specified severity; M86.8X7 Other osteomyelitis, ankle and foot; I82.512 Chronic embolism and thrombosis of left femoral vein; E11.22 Type 2 diabetes mellitus with diabetic chronic kidney disease; E11.628 Type 2 diabetes mellitus with other skin complications; E11.621 Type 2 diabetes mellitus with foot ulcer; E11.65 Type 2 diabetes mellitus with hyperglycemia; D63.1 Anemia in chronic kidney disease; E11.622 Type 2 diabetes mellitus with other skin ulcer; E11.69 Type 2 diabetes mellitus with other specified complication; E66.9 Obesity, unspecified; E78.00 Pure hypercholesterolemia, unspecified; Z79.2 Long term (current) use of antibiotics; Z86.14 Personal history of Methicillin resistant Staphylococcus aureus infection; Z89.511 Acquired absence of right leg below knee; Z99.2 Dependence on renal dialysis; Z99.3 Dependence on wheelchair; Z83.3 Family history of diabetes mellitus; Z88.2 Allergy status to sulfonamides; Z91.158 Patient's noncompliance with renal dialysis for other reason; Z88.0 Allergy status to penicillin; Z68.33 Body mass index [BMI] 33.0-33.9, adult
CPT/HCPCS: 36415; 36430; 73630; 75635; 80048; 80053; 80202; 82040; 82948; 83540; 83550; 83735; 84100; 85025; 85027; 85651; 86704; 86706; 86803; 86850; 86900; 86901; 86923; 87070; 87076; 87086; 87186; 87340; 90935; 93926; 93971; 96374; 96375; 99291; G0378; J1100; J1171; J1644; J1650; J1756; J1815; J1956; J2003; J2250; J2270; J2371; J2405; J2470; J2704; J2710; J2795; J3010; J3360; J3373; J3490; J7070; P9016; P9045; P9047; Q9967; A4216; A4222; A4223; A4649; A4930; A6223; A6450; J3370; Q5106